=== PATIENT | female | born 1955 | race Caucasian/White ===

== ENCOUNTER → 2018-02-07 10:44 | Outpatient (CLI) | payer SELFPAY ==
[2018-02-07 12:05] LABS: Absolute Lymphocyte Count 1.71 X10^3/ul (0.83-4.51); Absolute Neutrophil Count 3.9 X10^3/uL (2.0-7.7); Basophil# 0.04 X10^3/uL; Basophil% 0.6 % (0-1); Eosinophil# 0.08 X10^3/uL; Eosinophils% 1.3 % (0-5); Hematocrit 42.2 % (37-47); Hemoglobin 13.8 g/dl (12.0-15.0); Lymphocyte # 1.71 X10^3/ul (4.0); Lymphocyte % 27.6 % (19-41); Mean Corp Hgb Conc 32.7 g/gl (32-36); Mean Corpuscular Hgb 32.2 pg (27.0-32.0); Mean Corpuscular Volume 98.4 fL (81-99); Mean Platelet Vol. 10.7 fl (6.2-12.0); Monocyte# 0.46 X10^3/uL; Monocyte% 7.4 % (0-10); Neutrophil % 62.9 % (47-70); Platelet Count 254 K/mm3 (150-450); RBC Distribution Width SD 49.3 fl (35.1-43.9); Red Blood Count 4.29 M/mm3 (4.2-5.4); White Blood Count 6.2 K/mm3 (4.4-11.0)
[2018-02-07 12:12] LABS: POSITIVE COUNT NO; POSITIVE DIFFERENTIAL NO; POSITIVE MORPHOLOGY NO
[2018-02-07 12:13] LABS: ALB/GLOB Ratio 1.1 RATIO (0.9-2.4); AST(SGOT) 18 U/L (15-37); Alanine Aminotransfer ALT/SGPT 26 U/L (13-56); Albumin, Serum 3.9 g/dL (3.2-5.0); Alkaline Phosphatase 73 U/L (45-117); Anion Gap 9 (5-15); BUN 18 mg/dL (7-18); BUN/Creat Ratio 24.8 RATIO (10-20); Chloride 106 mmol/L (98-107); Creatinine, Serum 0.72 mg/dL (0.55-1.02); EST Glomerular Filtration Rate 87 mL/min (>60); Est Glom Filt Rate - Afr Amer 105 mL/min (>60); Globulin 3.5 g/dL (2.2-4.2); Glucose 94 mg/dL (74-106); Potassium 3.6 mmol/L (3.5-5.1); Protein, Total 7.4 g/dL (6.4-8.2); Sodium Level 142 mmol/L (136-145)
== END ==
PROVIDERS: Family Provider Family Medicine; PCP Family Medicine; Visit Provider Internal Medicine Rheumatology
DX: M06.4 Inflammatory polyarthropathy (principal); M79.7 Fibromyalgia; M15.9 Polyosteoarthritis, unspecified; M47.897 Other spondylosis, lumbosacral region; Z85.038 Personal history of other malignant neoplasm of large intestine; Z79.899 Other long term (current) drug therapy
CPT/HCPCS: 36415; 80053; 85025

== ENCOUNTER → 2018-04-21 08:27 | Outpatient (CLI) | payer SELFPAY ==
[2018-04-21 10:18] LABS: Absolute Lymphocyte Count 1.34 X10^3/ul (0.83-4.51); Absolute Neutrophil Count 1.9 X10^3/uL (2.0-7.7); Basophil# 0.01 X10^3/uL; Basophil% 0.3 % (0-1); Eosinophil# 0.07 X10^3/uL; Hematocrit 37.9 % (37-47); Hemoglobin 12.1 g/dl (12.0-15.0); Lymphocyte # 1.34 X10^3/ul (4.0); Lymphocyte % 38.7 % (19-41); Mean Corp Hgb Conc 31.9 g/gl (32-36); Mean Corpuscular Hgb 31.6 pg (27.0-32.0); Monocyte# 0.19 X10^3/uL; Monocyte% 5.5 % (0-10); Neutrophil # 1.85 X10^3/uL (2.7-7.7); Neutrophil % 53.5 % (47-70); Platelet Count 265 K/mm3 (150-450); RBC Distribution Width CV 14.1 % (11.6-14.6); RBC Distribution Width SD 50.4 fl (35.1-43.9); Red Blood Count 3.83 M/mm3 (4.2-5.4); White Blood Count 3.5 K/mm3 (4.4-11.0)
[2018-04-21 10:19] LABS: POSITIVE COUNT NO; POSITIVE DIFFERENTIAL NO; POSITIVE MORPHOLOGY NO
[2018-04-21 10:43] LABS: ALB/GLOB Ratio 1.2 RATIO (0.9-2.4); AST(SGOT) 27 U/L (15-37); Alanine Aminotransfer ALT/SGPT 27 U/L (13-56); Albumin, Serum 3.7 g/dL (3.2-5.0); Alkaline Phosphatase 64 U/L (45-117); Anion Gap 7 (5-15); BUN 12 mg/dL (7-18); BUN/Creat Ratio 15.9 RATIO (10-20); Calcium,Total 8.7 mg/dL (8.5-10.1); Chloride 106 mmol/L (98-107); Creatinine, Serum 0.75 mg/dL (0.55-1.02); EST Glomerular Filtration Rate 83 mL/min (>60); Est Glom Filt Rate - Afr Amer 101 mL/min (>60); Glucose 100 mg/dL (74-106); Potassium 4.2 mmol/L (3.5-5.1); Protein, Total 6.7 g/dL (6.4-8.2); Sodium Level 141 mmol/L (136-145)
== END ==
PROVIDERS: Family Provider Family Medicine; PCP Family Medicine; Visit Provider Internal Medicine Rheumatology
DX: M06.4 Inflammatory polyarthropathy (principal); M79.7 Fibromyalgia; M15.9 Polyosteoarthritis, unspecified; M47.897 Other spondylosis, lumbosacral region; Z85.038 Personal history of other malignant neoplasm of large intestine; Z79.899 Other long term (current) drug therapy
CPT/HCPCS: 36415; 80053; 85025

== ENCOUNTER → 2018-07-13 14:34 | Outpatient (CLI) | payer SELFPAY ==
[2018-07-13 15:39] LABS: Absolute Lymphocyte Count 1.56 X10^3/ul (0.83-4.51); Absolute Neutrophil Count 3.2 X10^3/uL (2.0-7.7); Basophil# 0.02 X10^3/uL; Basophil% 0.4 % (0-1); Eosinophil# 0.09 X10^3/uL; Eosinophils% 1.7 % (0-5); Hematocrit 42.4 % (37-47); Hemoglobin 13.5 g/dl (12.0-15.0); Lymphocyte # 1.56 X10^3/ul (4.0); Lymphocyte % 29.8 % (19-41); Mean Corp Hgb Conc 31.8 g/gl (32-36); Mean Corpuscular Hgb 31.3 pg (27.0-32.0); Mean Corpuscular Volume 98.4 fL (81-99); Mean Platelet Vol. 10.2 fl (6.2-12.0); Monocyte# 0.38 X10^3/uL; Monocyte% 7.3 % (0-10); Neutrophil # 3.19 X10^3/uL (2.7-7.7); Neutrophil % 60.8 % (47-70); Platelet Count 318 K/mm3 (150-450); RBC Distribution Width CV 14.2 % (11.6-14.6); RBC Distribution Width SD 50.8 fl (35.1-43.9); Red Blood Count 4.31 M/mm3 (4.2-5.4); White Blood Count 5.2 K/mm3 (4.4-11.0)
[2018-07-13 15:47] LABS: POSITIVE COUNT NO; POSITIVE DIFFERENTIAL NO; POSITIVE MORPHOLOGY NO
[2018-07-13 15:51] LABS: ALB/GLOB Ratio 1.1 RATIO (0.9-2.4); AST(SGOT) 26 U/L (15-37); Alanine Aminotransfer ALT/SGPT 31 U/L (13-56); Albumin, Serum 3.9 g/dL (3.2-5.0); Alkaline Phosphatase 63 U/L (45-117); Anion Gap 8 (5-15); BUN 15 mg/dL (7-18); BUN/Creat Ratio 17.9 RATIO (10-20); Calcium,Total 9.1 mg/dL (8.5-10.1); Chloride 107 mmol/L (98-107); Creatinine, Serum 0.84 mg/dL (0.55-1.02); EST Glomerular Filtration Rate 73 mL/min (>60); Est Glom Filt Rate - Afr Amer 89 mL/min (>60); Globulin 3.4 g/dL (2.2-4.2); Glucose 101 mg/dL (74-106); Protein, Total 7.3 g/dL (6.4-8.2); Sodium Level 143 mmol/L (136-145)
== END ==
PROVIDERS: Family Provider Family Medicine; PCP Family Medicine; Visit Provider Internal Medicine Rheumatology
DX: M06.4 Inflammatory polyarthropathy (principal); Z79.899 Other long term (current) drug therapy; M79.7 Fibromyalgia; M15.9 Polyosteoarthritis, unspecified; M47.897 Other spondylosis, lumbosacral region; Z85.038 Personal history of other malignant neoplasm of large intestine
CPT/HCPCS: 36415; 80053; 85025

== ENCOUNTER → 2018-10-13 14:33 | Outpatient (CLI) | payer SELFPAY ==
[2018-10-13 16:08] LABS: Absolute Lymphocyte Count 1.68 X10^3/ul (0.83-4.51); Basophil# 0.01 X10^3/uL; Basophil% 0.2 % (0-1); Eosinophil# 0.07 X10^3/uL; Eosinophils% 1.4 % (0-5); Hematocrit 40.4 % (37-47); Hemoglobin 13.1 g/dl (12.0-15.0); Lymphocyte # 1.68 X10^3/ul (4.0); Lymphocyte % 33.8 % (19-41); Mean Corp Hgb Conc 32.4 g/gl (32-36); Mean Corpuscular Hgb 32.2 pg (27.0-32.0); Mean Corpuscular Volume 99.3 fL (81-99); Mean Platelet Vol. 10.2 fl (6.2-12.0); Monocyte# 0.24 X10^3/uL; Monocyte% 4.8 % (0-10); Neutrophil # 2.96 X10^3/uL (2.7-7.7); Neutrophil % 59.6 % (47-70); Platelet Count 277 K/mm3 (150-450); RBC Distribution Width CV 13.7 % (11.6-14.6); RBC Distribution Width SD 49.1 fl (35.1-43.9); Red Blood Count 4.07 M/mm3 (4.2-5.4)
[2018-10-13 16:21] LABS: ALB/GLOB Ratio 1.3 RATIO (0.9-2.4); AST(SGOT) 24 U/L (15-37); Alanine Aminotransfer ALT/SGPT 35 U/L (13-56); Albumin, Serum 3.8 g/dL (3.2-5.0); Alkaline Phosphatase 60 U/L (45-117); Anion Gap 8 (5-15); BUN 12 mg/dL (7-18); Calcium,Total 8.8 mg/dL (8.5-10.1); Chloride 106 mmol/L (98-107); Creatinine, Serum 0.86 mg/dL (0.55-1.02); EST Glomerular Filtration Rate 72 mL/min (>60); Est Glom Filt Rate - Afr Amer 87 mL/min (>60); Glucose 101 mg/dL (74-106); Potassium 3.4 mmol/L (3.5-5.1); Protein, Total 6.8 g/dL (6.4-8.2); Sodium Level 143 mmol/L (136-145)
[2018-10-13 16:40] LABS: POSITIVE COUNT NO; POSITIVE DIFFERENTIAL NO; POSITIVE MORPHOLOGY NO
== END ==
PROVIDERS: Family Provider Family Medicine; PCP Family Medicine; Referring Provider Internal Medicine Rheumatology; Visit Provider Internal Medicine Rheumatology
DX: M06.4 Inflammatory polyarthropathy (principal); M79.7 Fibromyalgia; M15.9 Polyosteoarthritis, unspecified; M47.897 Other spondylosis, lumbosacral region; Z79.899 Other long term (current) drug therapy; Z85.038 Personal history of other malignant neoplasm of large intestine
CPT/HCPCS: 36415; 80053; 85025

== ENCOUNTER → 2019-01-11 11:51 | Outpatient (CLI) | payer SELFPAY ==
[2019-01-11 14:20] LABS: Absolute Lymphocyte Count 1.94 X10^3/ul (0.83-4.51); Basophil# 0.03 X10^3/uL; Basophil% 0.6 % (0-1); Eosinophil# 0.09 X10^3/uL; Eosinophils% 1.7 % (0-5); Hematocrit 40.4 % (37-47); Lymphocyte # 1.94 X10^3/ul (4.0); Lymphocyte % 36.1 % (19-41); Mean Corp Hgb Conc 32.2 g/gl (32-36); Mean Corpuscular Hgb 32.4 pg (27.0-32.0); Mean Corpuscular Volume 100.7 fL (81-99); Mean Platelet Vol. 10.5 fl (6.2-12.0); Monocyte# 0.35 X10^3/uL; Monocyte% 6.5 % (0-10); Neutrophil # 2.95 X10^3/uL (2.7-7.7); Neutrophil % 54.9 % (47-70); Platelet Count 276 K/mm3 (150-450); RBC Distribution Width CV 13.8 % (11.6-14.6); RBC Distribution Width SD 49.3 fl (35.1-43.9); Red Blood Count 4.01 M/mm3 (4.2-5.4); White Blood Count 5.4 K/mm3 (4.4-11.0)
[2019-01-11 14:26] LABS: POSITIVE COUNT NO; POSITIVE DIFFERENTIAL NO; POSITIVE MORPHOLOGY NO
[2019-01-11 14:43] LABS: ALB/GLOB Ratio 1.1 RATIO (0.9-2.4); AST(SGOT) 20 U/L (15-37); Alanine Aminotransfer ALT/SGPT 28 U/L (13-56); Albumin, Serum 3.8 g/dL (3.2-5.0); Alkaline Phosphatase 58 U/L (45-117); Anion Gap 7 (5-15); BUN 12 mg/dL (7-18); BUN/Creat Ratio 17.2 RATIO (10-20); Chloride 109 mmol/L (98-107); EST Glomerular Filtration Rate 91 mL/min (>60); Est Glom Filt Rate - Afr Amer 110 mL/min (>60); Globulin 3.5 g/dL (2.2-4.2); Glucose 105 mg/dL (74-106); Potassium 3.7 mmol/L (3.5-5.1); Protein, Total 7.3 g/dL (6.4-8.2); Sodium Level 144 mmol/L (136-145)
== END ==
PROVIDERS: Family Provider Family Medicine; PCP Family Medicine; Referring Provider Internal Medicine Rheumatology; Visit Provider Internal Medicine Rheumatology
DX: M06.4 Inflammatory polyarthropathy (principal); M79.7 Fibromyalgia; M15.9 Polyosteoarthritis, unspecified; M47.897 Other spondylosis, lumbosacral region; Z85.038 Personal history of other malignant neoplasm of large intestine; Z79.899 Other long term (current) drug therapy
CPT/HCPCS: 36415; 80053; 85025

== ENCOUNTER → 2019-04-05 13:40 | Outpatient (CLI) | payer SELFPAY ==
[2019-04-05 15:38] LABS: Absolute Lymphocyte Count 1.66 X10^3/ul (0.83-4.51); Absolute Neutrophil Count 3.4 X10^3/uL (2.0-7.7); Basophil# 0.02 X10^3/uL; Basophil% 0.4 % (0-1); Eosinophil# 0.06 X10^3/uL; Eosinophils% 1.1 % (0-5); Hematocrit 41.8 % (37-47); Hemoglobin 13.7 g/dl (12.0-15.0); Lymphocyte # 1.66 X10^3/ul (4.0); Lymphocyte % 30.7 % (19-41); Mean Corp Hgb Conc 32.8 g/gl (32-36); Mean Corpuscular Hgb 32.3 pg (27.0-32.0); Mean Corpuscular Volume 98.6 fL (81-99); Mean Platelet Vol. 10.3 fl (6.2-12.0); Monocyte# 0.29 X10^3/uL; Monocyte% 5.4 % (0-10); Neutrophil # 3.37 X10^3/uL (2.7-7.7); Neutrophil % 62.2 % (47-70); Platelet Count 286 K/mm3 (150-450); RBC Distribution Width CV 14.5 % (11.6-14.6); Red Blood Count 4.24 M/mm3 (4.2-5.4); White Blood Count 5.4 K/mm3 (4.4-11.0)
[2019-04-05 15:48] LABS: POSITIVE COUNT NO; POSITIVE DIFFERENTIAL NO; POSITIVE MORPHOLOGY NO
[2019-04-05 16:23] LABS: ALB/GLOB Ratio 1.5 RATIO (0.9-2.4); AST(SGOT) 29 U/L (15-37); Alanine Aminotransfer ALT/SGPT 40 U/L (13-56); Albumin, Serum 4.3 g/dL (3.2-5.0); Alkaline Phosphatase 59 U/L (45-117); Anion Gap 9 (5-15); BUN 16 mg/dL (7-18); BUN/Creat Ratio 19.7 RATIO (10-20); Calcium,Total 9.3 mg/dL (8.5-10.1); Chloride 105 mmol/L (98-107); Creatinine, Serum 0.81 mg/dL (0.55-1.02); EST Glomerular Filtration Rate 76 mL/min (>60); Est Glom Filt Rate - Afr Amer 92 mL/min (>60); Globulin 2.9 g/dL (2.2-4.2); Glucose 111 mg/dL (74-106); Potassium 3.3 mmol/L (3.5-5.1); Protein, Total 7.2 g/dL (6.4-8.2); Sodium Level 142 mmol/L (136-145)
== END ==
PROVIDERS: Family Provider Family Medicine; PCP Family Medicine; Referring Provider Internal Medicine Rheumatology; Visit Provider Internal Medicine Rheumatology
DX: M06.4 Inflammatory polyarthropathy (principal); M79.7 Fibromyalgia; M15.9 Polyosteoarthritis, unspecified; M47.897 Other spondylosis, lumbosacral region; Z85.038 Personal history of other malignant neoplasm of large intestine; Z79.899 Other long term (current) drug therapy
CPT/HCPCS: 36415; 80053; 85025

== ENCOUNTER → 2019-07-09 13:16 | Outpatient (CLI) | payer SELFPAY ==
[2019-07-09 13:57] LABS: Absolute Neutrophil Count 2.7 X10^3/uL (2.0-7.7); Basophil# 0.03 X10^3/uL; Basophil% 0.6 % (0-1); Eosinophil# 0.08 X10^3/uL; Eosinophils% 1.6 % (0-5); Hematocrit 39.3 % (37-47); Hemoglobin 12.7 g/dL (12.0-15.0); Lymphocyte % 35.6 % (19-41); Mean Corp Hgb Conc 32.3 g/dL (32-36); Mean Corpuscular Hgb 31.6 pg (27.0-32.0); Mean Corpuscular Volume 97.8 fL (81-99); Mean Platelet Vol. 9.7 fl (6.2-12.0); Monocyte# 0.48 X10^3/uL; Monocyte% 9.5 % (0-10); NRBC Flagged by Analyzer 0 % (0-5); Neutrophil # 2.66 X10^3/uL (2.7-7.7); Neutrophil % 52.5 % (47-70); Platelet Count 267 K/mm3 (150-450); RBC Distribution Width CV 13.6 % (11.6-14.6); RBC Distribution Width SD 48.6 fl (35.1-43.9); Red Blood Count 4.02 M/mm3 (4.2-5.4); White Blood Count 5.1 K/mm3 (4.4-11.0)
[2019-07-09 14:24] LABS: ALB/GLOB Ratio 1.2 RATIO (0.9-2.4); AST(SGOT) 17 U/L (15-37); Alanine Aminotransfer ALT/SGPT 17 U/L (13-56); Albumin, Serum 3.8 g/dL (3.2-5.0); Alkaline Phosphatase 72 U/L (45-117); Anion Gap 4 (5-15); BUN 12 mg/dL (7-18); BUN/Creat Ratio 18.1 RATIO (10-20); Calcium,Total 9.1 mg/dL (8.5-10.1); Chloride 108 mmol/L (98-107); Creatinine, Serum 0.66 mg/dL (0.55-1.02); EST Glomerular Filtration Rate 96 mL/min (>60); Est Glom Filt Rate - Afr Amer 116 mL/min (>60); Globulin 3.1 g/dL (2.2-4.2); Glucose 85 mg/dL (74-106); Potassium 3.9 mmol/L (3.5-5.1); Protein, Total 6.9 g/dL (6.4-8.2); Sodium Level 141 mmol/L (136-145)
== END ==
PROVIDERS: Family Provider Family Medicine; PCP Family Medicine; Referring Provider Internal Medicine Rheumatology; Visit Provider Internal Medicine Rheumatology
DX: M06.4 Inflammatory polyarthropathy (principal); M79.7 Fibromyalgia; M15.9 Polyosteoarthritis, unspecified; M47.897 Other spondylosis, lumbosacral region; Z85.038 Personal history of other malignant neoplasm of large intestine; Z79.899 Other long term (current) drug therapy
CPT/HCPCS: 36415; 80053; 85025

== ENCOUNTER → 2019-08-30 10:45 | Outpatient (CLI) | payer MEDICARE, SELFPAY ==
--- NOTE | 2019-08-30 10:52 | RAD_ITS ---
STUDY: X-RAY - LUMBAR SPINE REASON FOR EXAM: Female, 63 years old. Left hip pain. TECHNIQUE: 5 view(s) of the lumbar spine were obtained. COMPARISON: October 13, 2016 FINDINGS: Normal lumbar lordosis. There is no substantial scoliosis. There is a normal alignment of the vertebrae. There is multilevel endplate spondylosis of the lumbar vertebrae. There is multi-level degenerative disc disease with multi-level disc space narrowing. There is atherosclerotic calcification of the abdominal aorta without a demonstrated aneurysm. RAD/L/S Spine Min 4 Views IMPRESSION: Degenerative changes of the spine, as detailed above. Atherosclerosis. Electronically Signed: Velma Mcleod MD at 17:59 EDT Tel , Service support ,
== END ==
PROVIDERS: Family Provider Family Medicine; PCP Family Medicine; Referring Provider Nurse Practitioner Family; Visit Provider Nurse Practitioner Family
DX: M46.96 Unspecified inflammatory spondylopathy, lumbar region (principal); M51.37 Other intervertebral disc degeneration, lumbosacral region; M47.816 Spondylosis without myelopathy or radiculopathy, lumbar region
CPT/HCPCS: 72110

== ENCOUNTER → 2019-09-28 15:29 | Outpatient (CLI) | payer MEDICARE, SELFPAY ==
[2019-09-28 17:49] LABS: Absolute Lymphocyte Count 2.35 X10^3/uL (0.83-4.51); Absolute Neutrophil Count 2.8 X10^3/uL (2.0-7.7); Basophil# 0.04 X10^3/uL; Basophil% 0.7 % (0-1); Eosinophils% 1.7 % (0-5); Hematocrit 40.9 % (37-47); Hemoglobin 13.1 g/dL (12.0-15.0); Lymphocyte # 2.35 X10^3/ul (4.0); Lymphocyte % 40.9 % (19-41); Mean Corpuscular Hgb 31.9 pg (27.0-32.0); Mean Corpuscular Volume 99.5 fL (81-99); Mean Platelet Vol. 10.1 fl (6.2-12.0); Monocyte# 0.44 X10^3/uL; Monocyte% 7.7 % (0-10); NRBC Flagged by Analyzer 0 % (0-5); Neutrophil % 48.8 % (47-70); Platelet Count 308 K/mm3 (150-450); RBC Distribution Width CV 13.9 % (11.6-14.6); RBC Distribution Width SD 50.4 fl (35.1-43.9); Red Blood Count 4.11 M/mm3 (4.2-5.4); White Blood Count 5.7 K/mm3 (4.4-11.0)
[2019-09-28 18:16] LABS: ALB/GLOB Ratio 1.2 RATIO (0.9-2.4); AST(SGOT) 17 U/L (15-37); Alanine Aminotransfer ALT/SGPT 27 U/L (13-56); Albumin, Serum 3.8 g/dL (3.2-5.0); Alkaline Phosphatase 63 U/L (45-117); Anion Gap 8 (5-15); BUN 13 mg/dL (7-18); BUN/Creat Ratio 18.7 RATIO (10-20); Calcium,Total 8.9 mg/dL (8.5-10.1); Chloride 104 mmol/L (98-107); EST Glomerular Filtration Rate 91 mL/min (>60); Est Glom Filt Rate - Afr Amer 110 mL/min (>60); Globulin 3.1 g/dL (2.2-4.2); Glucose 84 mg/dL (74-106); Potassium 3.7 mmol/L (3.5-5.1); Protein, Total 6.9 g/dL (6.4-8.2); Sodium Level 141 mmol/L (136-145)
== END ==
PROVIDERS: Family Provider Family Medicine; PCP Family Medicine; Referring Provider Internal Medicine Rheumatology; Visit Provider Internal Medicine Rheumatology
DX: M06.4 Inflammatory polyarthropathy (principal); M79.7 Fibromyalgia; M15.9 Polyosteoarthritis, unspecified; M47.897 Other spondylosis, lumbosacral region; Z85.038 Personal history of other malignant neoplasm of large intestine; Z79.899 Other long term (current) drug therapy
CPT/HCPCS: 36415; 80053; 85025

== ENCOUNTER 2019-10-24 13:00 | Outpatient (RCR) | payer MEDICARE, SELFPAY ==
--- NOTE | 2019-09-27 16:37 | HP.PTEVAL_ITS ---
Patient's Visit Information AUGUSTUS TARIQ is a 64 year old F referred to Physical Therapy by MAURO Joyner with a diagnosis of L Lumbar Stenosis, Spondylosis. Date of Evaluation: 09/27/19 Physical Therapist: Margot Peguero DPT - Visit Plan Frequency: 2x /Week Duration: 4 Weeks Plan: Focus on improving lumbar/Hip ROM, improving core/LE strength/stabilization, improving posture/body mechanics/pelvic shift when amb., and decreasing pain. 09/27/19 HEP Prescribed: Supine Bridges, Isometric Abdominals, Hip Add/Abd. - Subjective Findings: Chronic LBP, no AVTAR. X-ray for lower back 3 weeks ago, showed herniation, degeneration of L4/L5. Epidural scheduled for 10/03 Dr Clark. Hip & knee pain has started within last year, no AVTAR. Lives with in one story home, 3 steps into house. Aquatic therapy at a couple years ago with little help for pain. Describes pain, as throbbing and burning. Some at the lower back, but mostly down the outside of the L leg (can go all the way down to foot). When back does hurt it can radiate over to R hip, pain is usually just on L side. Pain can rdadiate up the back at times (epidurals in thoracic region). Worst: 5- 6/10 Agg: being on it, ADL's, standing after prolonged sitting, stairs, putting socks on. Best: 5/10 Eases: nothing seems to help pain, tries to sit & rest it. Pain doesn't really seem to subside at all. N/T all the way down the L leg at times. Sleeping on L side disrupts sleep, sleeps on side with pillow between legs. Occupation: Retired Typical Activities: Gardening, 3 grandkids (4,6,7) 1- 2x a week. Exercise Program: not currently. PMH/Meds: Scoliosis. Chemotherapy 2013, Sees Dr. santiago for RA. Had x-rays taken at [place] for for L hip - still waiting for results. Has been walking with cane for the last 6 months, even inside the house. - Objective Posture: FH, RS - corrected w/ v/c, but not maintained. Excessive pelvic shift to the R. Gait: Amb. w/ cane, excessive lateral pelvic shift to R, decreased sierra, lacks TKE B, weight shift to R LE. Wihout cane: gait pattern remains the same, slower sierra, weight shift to R Le, reachs out for support. ROM: Lumbar: Flex: fingers to ankles, Ext: 0%, SB L: 50% diminshed, R 50% diminished. L Rot: 50% diminished, R Rot. 75% diminshed. Painful in all planes. Ankle/Knee WFL, Hip Flex: 110 degrees, IR/ER - diominshed (difficulty maintaining position w/out pain). Strength: Ankle 5/5, Knee 4/5, Hip: Flex 4-/5, Ext: 3+/5, Abd: 3+/5, IR/ER: 3/5. Core: Poor. Painful w/ all testing (pain w/ all strength testing). Palpation: TTP to gentle PA glides at L2-L5, L iliac crest, sacral base, L ASIS, t/o hip joint & down outside of L leg to knee. Sensation: WNL to gross B touch. LLD: L malleoli higher than R - not attempted to correct w/ MET d/t pain. Pelvic Allignment: WNL. Special Tests: Slump L (+), Long [place] Distraction (+), Squish Test (+) - Goals Goal 1:: Pt. will be I w/ HEP & progression Goal Time Frame: 4-6 Weeks Goal 2:: Pt. will amb. >300 ft w/ normalized gait pattern Goal Time Frame: 4-6 Weeks Goal 3:: Pt. will demo 4+/5 strength in R LE Goal Time Frame: 4-6 Weeks Goal 4:: Pt. will maintain proper posture t/o tx session & when amb. to demo improved core strength Goal Time Frame: 4-6 Weeks - Rehabilitation Potential Physical Therapy Diagnosis: Presents w/ hypomobility, impaired core/hip strength, antalgic gait, impaired lumbar ROM, and pain which leads to impaired tolerance of ADL's. Rehabilitation Potential: Good - Anticipated Interventions Patient/Client Instruction: Educate patient on: Condition For the Purpose of:: To decrease pain Therapeutic Exercise to Include: Strength training, Endurance training, Balance training, Body mechanics, Postural training, Flexibilty training, Gait and locomotor training, Active ROM, Dynamic Lumbar Stabilization, Farzaneh Exercises For the Purpose of:: To improve muscle performance and motor function Functional Training to Include: Gait training For the Purpose of:: To improve muscle performance and motor function Cryotherapy (ice pack, ice massage): Yes Thermo therapy (hot pack): Yes Ultrasound (thermal/non thermal): Yes For the Purpose of:: To decrease pain Thank you for the opportunity to evaluate your patient. For Medicare and Medicare HMO plans, please review the plan of care and approve it. It will need to be FAXED BACK to us at [phone] for Medicare purposes. For Medicare only, by signing this I certify the plan of care. Please let me know if there are questions or concerns regarding this plan of care. Physician Signature: Da te:
--- NOTE | 2019-10-24 13:24 | HP.PTDCSUM ---
HP - PT D/C Summary It has been my pleasure to treat AUGUSTUS TARIQ under orders from Suri Potter, MICHELLC, for the diagnosis of L Lumbar Stenosis, Spondylosis for a total of 6 visit(s). Discharge Date: Please see the following information for a summary of their discharge status. - Subjective Subjective: Patient reports that she had an epideral so her back is great but her hip is a problem- they think 95% of the pain is coming from her hip- severe OA- plans to have another injection in the hip then possibly total hip replacement. - Pain LB Pain Intensity (Out of 10): Unrated hips Pain Intensity (Out of 10): Unrated L LE Pain Intensity (Out of 10): Unrated R heel Pain Intensity (Out of 10): Unrated - Overall Improvement % Improvement: 80 - Objective Objective/Function: Posture: FH, RS - corrected w/ v/c, but not maintained. Excessive pelvic shift to the R. Gait: Amb. w/ cane, excessive lateral pelvic shift to R, decreased sierra, lacks TKE B, weight shift to R LE. Wihout cane: gait pattern remains the same, slower sierra, weight shift to R Le, reachs out for support. ROM: Lumbar: Flex: fingers to ankles, Ext: 0%, SB L: 50% diminshed, R 50% diminished. L Rot: 50% diminished, R Rot. 75% diminshed. Painful in all planes. Ankle/Knee WFL, Hip Flex: 110 degrees, IR/ER - diominshed (difficulty maintaining position w/out pain). Strength: Ankle 5/5, Knee 4/5, Hip: Flex 4-/5, Ext: 3+/5, Abd: 3+/5, IR/ER: 3/5. Core: Poor. Painful w/ all testing (pain w/ all strength testing). Palpation: TTP to gentle PA glides at L2-L5, L iliac crest, sacral base, L ASIS, t/o hip joint & down outside of L leg to knee. Sensation: WNL to gross B touch. LLD: L malleoli higher than R - not attempted to correct w/ MET d/t pain. Pelvic Allignment: WNL. Special Tests: Slump L (+), Long [place] Distraction (+), Squish Test (+). No significant changes in objective measures. - Goals Goal 1:: Pt. will be I w/ HEP & progression Goal Progress: Goal Met Goal 2:: Pt. will amb. >300 ft w/ normalized gait pattern Goal Progress: Not Progressing Goal 3:: Pt. will demo 4+/5 strength in R LE Goal Progress: Not Progressing Goal 4:: Pt. will maintain proper posture t/o tx session & when amb. to demo improved core strength Goal Progress: Not Progressing - Plan Plan: Discharge- return to MD for further evaluation - D/C Information If there are questions or concerns regarding this patient's physical therapy, please feel free to call me at [phone]. Thank you for the referral of this patient. Sincerely, MARITZA RuanoT
== END 2019-10-24 19:00 | disposition home or self-care (01) ==
LOC: PT 13:00
PROVIDERS: Family Provider Family Medicine; PCP Family Medicine; Referring Provider Nurse Practitioner Family; Visit Provider Nurse Practitioner Family
DX: M51.36 Other intervertebral disc degeneration, lumbar region (principal); M47.816 Spondylosis without myelopathy or radiculopathy, lumbar region; M48.061 Spinal stenosis, lumbar region without neurogenic claudication; M46.96 Unspecified inflammatory spondylopathy, lumbar region; M54.9 Dorsalgia, unspecified
CPT/HCPCS: 97035; 97110; 97162; 97530

== ENCOUNTER → 2019-12-10 10:38 | Outpatient (CLI) | payer MEDICARE, SELFPAY ==
--- NOTE | 2019-12-10 10:51 | EKG12_ITS ---
Test Reason : PREOP Blood Pressure : / mmHG Vent. Rate : 079 BPM Atrial Rate : 079 BPM P-R Int : 158 ms QRS Dur : 078 ms QT Int : 366 ms P-R-T Axes : 041 039 077 degrees QTc Int : 419 ms Normal sinus rhythm Normal ECG Confirmed by MARI WEST, ELVI ([id number]), editor map PATRICIO ORDAZ ([id number]) on 12/11/2019 10:17:08 AM Referred By: Varun Lott Confirmed By:ELVI GUERRA MD
[2019-12-10 11:15] LABS: Absolute Lymphocyte Count 1.84 X10^3/uL (0.83-4.51); Absolute Neutrophil Count 4.2 X10^3/uL (2.0-7.7); Basophil# 0.04 X10^3/uL; Basophil% 0.6 % (0-1); Eosinophil# 0.07 X10^3/uL; Hemoglobin 13.6 g/dL (12.0-15.0); Lymphocyte # 1.84 X10^3/ul (4.0); Lymphocyte % 27.3 % (19-41); Mean Corp Hgb Conc 31.6 g/dL (32-36); Mean Corpuscular Hgb 31.9 pg (27.0-32.0); Mean Corpuscular Volume 100.7 fL (81-99); Mean Platelet Vol. 9.8 fl (6.2-12.0); Monocyte# 0.57 X10^3/uL; Monocyte% 8.5 % (0-10); NRBC Flagged by Analyzer 0 % (0-5); Neutrophil # 4.19 X10^3/uL (2.7-7.7); Neutrophil % 62.3 % (47-70); Platelet Count 328 K/mm3 (150-450); RBC Distribution Width CV 14.7 % (11.6-14.6); RBC Distribution Width SD 54.9 fl (35.1-43.9); Red Blood Count 4.27 M/mm3 (4.2-5.4); White Blood Count 6.7 K/mm3 (4.4-11.0)
[2019-12-10 11:54] LABS: Anion Gap 3 (5-15); BUN 13 mg/dL (7-18); BUN/Creat Ratio 18.1 RATIO (10-20); Calcium,Total 9.7 mg/dL (8.5-10.1); Chloride 111 mmol/L (98-107); Creatinine, Serum 0.72 mg/dL (0.55-1.02); EST Glomerular Filtration Rate 88 mL/min (>60); Est Glom Filt Rate - Afr Amer 106 mL/min (>60); Glucose 87 mg/dL (74-106); Potassium 3.9 mmol/L (3.5-5.1); Sodium Level 142 mmol/L (136-145)
== END ==
PROVIDERS: Family Provider Family Medicine; PCP Family Medicine; Referring Provider Physician Assistant Surgical; Visit Provider Physician Assistant Surgical
DX: Z01.810 Encounter for preprocedural cardiovascular examination (principal); Z01.818 Encounter for other preprocedural examination
CPT/HCPCS: 36415; 80048; 85025; 93005

== ENCOUNTER → 2020-02-28 10:07 | Outpatient (CLI) | payer MEDICARE, SELFPAY ==
[2020-02-28 12:14] LABS: Absolute Neutrophil Count 1.7 X10^3/uL (2.0-7.7); Basophil# 0.03 X10^3/uL; Basophil% 0.8 % (0-1); Eosinophil# 0.06 X10^3/uL; Eosinophils% 1.5 % (0-5); Hematocrit 45.5 % (37-47); Hemoglobin 14.3 g/dL (12.0-15.0); Lymphocyte % 46.4 % (19-41); Mean Corp Hgb Conc 31.4 g/dL (32-36); Mean Corpuscular Hgb 31.4 pg (27.0-32.0); Mean Corpuscular Volume 99.8 fL (81-99); Mean Platelet Vol. 10.2 fl (6.2-12.0); Monocyte# 0.31 X10^3/uL; NRBC Flagged by Analyzer 0 % (0-5); Neutrophil # 1.67 X10^3/uL (2.7-7.7); Platelet Count 297 K/mm3 (150-450); RBC Distribution Width CV 12.5 % (11.6-14.6); RBC Distribution Width SD 46.5 fl (35.1-43.9); Red Blood Count 4.56 M/mm3 (4.2-5.4); White Blood Count 3.9 K/mm3 (4.4-11.0)
[2020-02-28 12:31] LABS: ALB/GLOB Ratio 1.2 RATIO (0.9-2.4); AST(SGOT) 20 U/L (15-37); Alanine Aminotransfer ALT/SGPT 22 U/L (13-56); Alkaline Phosphatase 87 U/L (45-117); Anion Gap 6 (5-15); BUN 7 mg/dL (7-18); BUN/Creat Ratio 8.9 RATIO (10-20); Calcium,Total 9.3 mg/dL (8.5-10.1); Chloride 107 mmol/L (98-107); Creatinine, Serum 0.78 mg/dL (0.55-1.02); EST Glomerular Filtration Rate 79 mL/min (>60); Est Glom Filt Rate - Afr Amer 96 mL/min (>60); Globulin 3.3 g/dL (2.2-4.2); Glucose 92 mg/dL (74-106); Potassium 3.8 mmol/L (3.5-5.1); Protein, Total 7.3 g/dL (6.4-8.2); Sodium Level 140 mmol/L (136-145)
== END ==
PROVIDERS: PCP Family Medicine; Referring Provider Internal Medicine Rheumatology; Visit Provider Internal Medicine Rheumatology
DX: M06.4 Inflammatory polyarthropathy (principal); M79.7 Fibromyalgia; M15.9 Polyosteoarthritis, unspecified; M47.897 Other spondylosis, lumbosacral region; Z79.899 Other long term (current) drug therapy; Z85.038 Personal history of other malignant neoplasm of large intestine
CPT/HCPCS: 36415; 80053; 85025

== ENCOUNTER → 2020-06-02 14:21 | Outpatient (CLI) | payer MEDICARE, SELFPAY ==
[2020-06-02 18:07] LABS: Absolute Lymphocyte Count 1.68 X10^3/uL (0.83-4.51); Absolute Neutrophil Count 1.7 X10^3/uL (2.0-7.7); Basophil# 0.03 X10^3/uL; Basophil% 0.8 % (0-1); Eosinophil# 0.05 X10^3/uL; Eosinophils% 1.3 % (0-5); Hematocrit 39.6 % (37-47); Hemoglobin 12.6 g/dL (12.0-15.0); Lymphocyte # 1.68 X10^3/ul (4.0); Lymphocyte % 44.6 % (19-41); Mean Corp Hgb Conc 31.8 g/dL (32-36); Mean Corpuscular Hgb 31.2 pg (27.0-32.0); Mean Platelet Vol. 10.8 fl (6.2-12.0); Monocyte# 0.33 X10^3/uL; Monocyte% 8.8 % (0-10); NRBC Flagged by Analyzer 0 % (0-5); Neutrophil # 1.68 X10^3/uL (2.7-7.7); Neutrophil % 44.5 % (47-70); Platelet Count 260 K/mm3 (150-450); RBC Distribution Width SD 50.5 fl (35.1-43.9); Red Blood Count 4.04 M/mm3 (4.2-5.4); White Blood Count 3.8 K/mm3 (4.4-11.0)
[2020-06-02 18:15] LABS: ALB/GLOB Ratio 1.3 RATIO (0.9-2.4); AST(SGOT) 16 U/L (15-37); Alanine Aminotransfer ALT/SGPT 21 U/L (13-56); Albumin, Serum 3.9 g/dL (3.2-5.0); Alkaline Phosphatase 66 U/L (45-117); Anion Gap 7 (5-15); BUN 13 mg/dL (7-18); BUN/Creat Ratio 20.2 RATIO (10-20); Calcium,Total 8.9 mg/dL (8.5-10.1); Chloride 107 mmol/L (98-107); Creatinine, Serum 0.64 mg/dL (0.55-1.02); EST Glomerular Filtration Rate 99 mL/min (>60); Est Glom Filt Rate - Afr Amer 120 mL/min (>60); Globulin 3.1 g/dL (2.2-4.2); Glucose 85 mg/dL (74-106); Potassium 3.6 mmol/L (3.5-5.1); Sodium Level 143 mmol/L (136-145)
== END ==
PROVIDERS: PCP Family Medicine; Referring Provider Internal Medicine Rheumatology; Visit Provider Internal Medicine Rheumatology
DX: M06.4 Inflammatory polyarthropathy (principal); M79.7 Fibromyalgia; M15.9 Polyosteoarthritis, unspecified; M47.897 Other spondylosis, lumbosacral region; Z79.899 Other long term (current) drug therapy; Z85.038 Personal history of other malignant neoplasm of large intestine
CPT/HCPCS: 36415; 80053; 85025

== ENCOUNTER → 2020-06-05 14:41 | Outpatient (CLI) | payer MEDICARE, SELFPAY ==
--- NOTE | 2020-06-05 14:43 | RAD_ITS ---
STUDY: X-RAY - RIGHT SHOULDER REASON FOR EXAM: Female, 64 years old. Pain TECHNIQUE: 4 view(s) of the shoulder. COMPARISON: None. FINDINGS: There is no evidence of fracture or dislocation. There are mild degenerative changes. There are no radiodense foreign bodies. RAD/Shoulder min 2 Views IMPRESSION: No fracture or dislocation in the right shoulder. Mild degenerative change. Electronically Signed: Gopi Hameed, at 15:00 EDT Tel , Service support ,
== END ==
PROVIDERS: PCP Family Medicine; Referring Provider Internal Medicine Rheumatology; Visit Provider Internal Medicine Rheumatology
DX: M06.4 Inflammatory polyarthropathy (principal); M79.7 Fibromyalgia; M25.511 Pain in right shoulder; M15.9 Polyosteoarthritis, unspecified; M47.897 Other spondylosis, lumbosacral region; Z79.899 Other long term (current) drug therapy; Z85.038 Personal history of other malignant neoplasm of large intestine
CPT/HCPCS: 73030

== ENCOUNTER → 2020-07-28 09:51 | Outpatient (CLI) | payer MEDICARE, SELFPAY ==
[2020-07-28 12:02] LABS: Absolute Lymphocyte Count 1.61 X10^3/uL (0.83-4.51); Absolute Neutrophil Count 2.2 X10^3/uL (2.0-7.7); Basophil# 0.03 X10^3/uL; Basophil% 0.7 % (0-1); Eosinophil# 0.06 X10^3/uL; Eosinophils% 1.4 % (0-5); Hematocrit 44.2 % (37-47); Hemoglobin 14.1 g/dL (12.0-15.0); Lymphocyte # 1.61 X10^3/ul (4.0); Lymphocyte % 36.9 % (19-41); Mean Corp Hgb Conc 31.9 g/dL (32-36); Mean Corpuscular Hgb 31.5 pg (27.0-32.0); Mean Corpuscular Volume 98.7 fL (81-99); Monocyte# 0.42 X10^3/uL; Monocyte% 9.6 % (0-10); NRBC Flagged by Analyzer 0 % (0-5); Neutrophil # 2.23 X10^3/uL (2.7-7.7); Neutrophil % 51.2 % (47-70); Platelet Count 306 K/mm3 (150-450); RBC Distribution Width CV 13.9 % (11.6-14.6); RBC Distribution Width SD 50.9 fl (35.1-43.9); Red Blood Count 4.48 M/mm3 (4.2-5.4); White Blood Count 4.4 K/mm3 (4.4-11.0)
[2020-07-28 12:24] LABS: ALB/GLOB Ratio 1.3 RATIO (0.9-2.4); AST(SGOT) 20 U/L (15-37); Alanine Aminotransfer ALT/SGPT 24 U/L (13-56); Albumin, Serum 4.1 g/dL (3.2-5.0); Alkaline Phosphatase 61 U/L (45-117); Anion Gap 5 (5-15); BUN 9 mg/dL (7-18); BUN/Creat Ratio 11.5 RATIO (10-20); Calcium,Total 9.3 mg/dL (8.5-10.1); Chloride 106 mmol/L (98-107); Creatinine, Serum 0.78 mg/dL (0.55-1.02); EST Glomerular Filtration Rate 79 mL/min (>60); Est Glom Filt Rate - Afr Amer 95 mL/min (>60); Globulin 3.2 g/dL (2.2-4.2); Glucose 79 mg/dL (74-106); Protein, Total 7.3 g/dL (6.4-8.2); Sodium Level 140 mmol/L (136-145)
== END ==
PROVIDERS: PCP Family Medicine; Referring Provider Internal Medicine Rheumatology; Visit Provider Internal Medicine Rheumatology
DX: M06.4 Inflammatory polyarthropathy (principal); M79.7 Fibromyalgia; M25.511 Pain in right shoulder; M15.9 Polyosteoarthritis, unspecified; M47.897 Other spondylosis, lumbosacral region; Z79.899 Other long term (current) drug therapy; Z85.038 Personal history of other malignant neoplasm of large intestine
CPT/HCPCS: 36415; 80053; 85025

== ENCOUNTER 2020-10-15 12:00 | Emergency (ER) | payer MEDICARE, SELFPAY ==
[2020-10-15 12:01] VITALS: BP 182/104; PULSE 75; RESP 16; TEMP 36.4; O2SAT 98; BMI 26.4
--- NOTE | 2020-10-15 12:09 | RAD_ITS ---
STUDY: X-RAY - RIGHT FOOT CLINICAL: Female, 65 years old. Rolled ankle 2 days ago TECHNIQUE: 3 view(s) of the foot. COMPARISON: None. FINDINGS: There is a plantar calcaneal spur. Normal visualized subtalar, talonavicular, calcaneocuboid, tarsal and tarsometatarsal articulations. Normal metatarsi. There is degenerative arthrosis of the metatarsophalangeal joint of the hallux with a hallux valgus deformity. Normal tibial and fibular sesamoid bones. Normal interphalangeal joint of the great toe. Normal phalanges of the great toe. Normal second through fifth metatarsophalangeal joints. Normal interphalangeal joints and phalanges of the lesser toes. There is non-specific soft tissue swelling of the foot. RAD/Foot min 3 Views IMPRESSION: Calcaneal plantar spur is Soft tissue swelling. Patient is known to have a nondisplaced transverse fracture of the lateral malleolus. Electronically Signed: Law Gaxiola, at 12:36 EST , Service support ,
--- NOTE | 2020-10-15 12:10 | RAD_ITS ---
STUDY: X-RAY - RIGHT ANKLE REASON FOR EXAM: Female, 65 years old. Rolled ankle 2 days ago TECHNIQUE: 3 view(s) of the ankle. COMPARISON: None. FINDINGS: Normal visualized distal tibia and fibula. Nondisplaced transverse fracture of the lateral malleolus. Normal tibiotalar articulation and ankle mortise. Calcaneal plantar spur. The visualized subtalar, talonavicular, calcaneocuboid and tarsal articulations are normal. Diffuse soft tissue swelling worse on the lateral side. RAD/Ankle min 3 Views IMPRESSION: Nondisplaced transverse fracture of the lateral malleolus with overlying soft tissue swelling. Electronically Signed: Law Gaxiola, at 12:34 EST , Service support ,
--- NOTE | 2020-10-15 12:10 | ED.VIS.GEN ---
History of Present Illness Chief Complaint: Lower Extremity Injury Informant: Patient Narrative: Patient presents for the evaluation of right ankle and foot injury. Patient was out picking up sticks the other day and stepped off the curb resulted in inversion injury to the right ankle. She notes swelling and bruising. She denies any other injuries. Past Medical History - Allergies and Home Meds Allergies/Adverse Reactions: Allergies No Known Allergies Allergy (Verified 10/15/20 12:00) Primary Care Physician: Suri Tyler DO [Primary Care Provider] - Surgical History: noncontributory Smoking Status: Never smoker Drugs: None Review of Systems General: Denies: Chills, Fever, Sweats Eyes: Denies: Visual changes - bilaterally, Diplopia ENT: Denies: Rhinorrhea, Sore throat Cardiovascular: Denies: Chest pain, Palpitations Respiratory: Denies: Dyspnea, Cough, Dyspnea on exertion Gastrointestinal: Denies: Abdominal pain, Nausea, Vomiting, Diarrhea, Melena, Hematochezia Genitourinary: Denies: Dysuria, Hematuria, Frequency Musculoskeletal: Reports: Swelling, Extremity Pain. Denies: Back pain Skin: Denies: Rash, Wounds Neurological: Denies: Headache, Weakness, Numbness Physical Exam Vital Signs/Narrative: Vital Signs Temp Pulse Resp BP Pulse Ox 10/15/20 12:01 97.6 F L 75 16 182/104 H 98 Inital Vital Signs reviewed: Yes General: Well nourished, Well developed, No Acute Distress Head: Normocephalic, Atraumatic Eyes: Perrl, EOMI ENT: Moist mucous membranes, No rhinorrhea Neck: Supple, Nontender Cardiovascular: Regular rate, Regular rhythm, No murmurs Respiratory: No distress, CTA bilaterally, Chest nontender Abdomen: Soft, Nontender, Nondistended, Normal bowel sounds Back: Nontender, Normal Inspection Extremities: Tenderness - Tender to palpation medial lateral malleolus with significant swelling and ecchymosis. Achilles appears intact negative Shields's. No fifth metatarsal tenderness or fibular head tenderness, Edema Skin: Normal color, No rash Neurological: Alert, Oriented x3, Cranial nerves II-XII grossly intact, Normal Strength, Normal Sensation Psychological: Normal affect, Normal Mood Diagnostic/Tx/Re-eval Clinical Impression(s) from Imaging Studies Foot X-Ray 10/15/20 12:09 IMPRESSION: Calcaneal plantar spur is Soft tissue swelling. Patient is known to have a nondisplaced transverse fracture of the lateral malleolus. Electronically Signed: Law Minor, at 12:36 EST , Service support , Ankle X-Ray 10/15/20 12:10 IMPRESSION: Nondisplaced transverse fracture of the lateral malleolus with overlying soft tissue swelling. Electronically Signed: Law Minor, at 12:34 EST , Service support , - Medical Decision Making Patient will be placed in a walking boot given crutches for touchdown weightbearing. She has seen Dr. Dahl in the past for hip replacement. ED Disposition - Plan for ED Patient: Disposition: Home or Assisted Living Diagnosis: Closed right ankle fracture Instructions: ED Ankle Fx Distal Fibula Referrals: Gopi Dahl MD [STAFF PHYSICIAN] - (call to arrange follow up)
== END 2020-10-15 13:32 | disposition home or self-care (01) ==
PROVIDERS: Emergency Provider Emergency Medicine; PCP Family Medicine
DX: S82.891A Other fracture of right lower leg, initial encounter for closed fracture (principal); X58.XXXA Exposure to other specified factors, initial encounter
CPT/HCPCS: 73610; 73630; 99284

== ENCOUNTER → 2020-10-17 13:05 | Outpatient (CLI) | payer MEDICARE, SELFPAY ==
[2020-10-15 12:01] VITALS: BMI 26.4
[2020-10-17 15:35] LABS: Absolute Lymphocyte Count 1.89 X10^3/uL (0.83-4.51); Absolute Neutrophil Count 2.9 X10^3/uL (2.0-7.7); Basophil# 0.04 X10^3/uL; Basophil% 0.7 % (0-1); Eosinophils% 1.9 % (0-5); Hematocrit 42.8 % (37-47); Hemoglobin 13.4 g/dL (12.0-15.0); Lymphocyte # 1.89 X10^3/ul (4.0); Lymphocyte % 35.3 % (19-41); Mean Corp Hgb Conc 31.3 g/dL (32-36); Mean Corpuscular Hgb 32.8 pg (27.0-32.0); Mean Corpuscular Volume 104.6 fL (81-99); Mean Platelet Vol. 10.2 fl (6.2-12.0); Monocyte# 0.42 X10^3/uL; Monocyte% 7.8 % (0-10); NRBC Flagged by Analyzer 0 % (0-5); Neutrophil % 54.1 % (47-70); Platelet Count 284 K/mm3 (150-450); RBC Distribution Width CV 14.7 % (11.6-14.6); RBC Distribution Width SD 56.9 fl (35.1-43.9); Red Blood Count 4.09 M/mm3 (4.2-5.4); White Blood Count 5.4 K/mm3 (4.4-11.0)
[2020-10-17 16:01] LABS: ALB/GLOB Ratio 1.2 RATIO (0.9-2.4); AST(SGOT) 15 U/L (15-37); Alanine Aminotransfer ALT/SGPT 20 U/L (13-56); Albumin, Serum 3.7 g/dL (3.2-5.0); Alkaline Phosphatase 65 U/L (45-117); Anion Gap 4 (5-15); BUN 11 mg/dL (7-18); BUN/Creat Ratio 14.7 RATIO (10-20); Calcium,Total 8.9 mg/dL (8.5-10.1); Chloride 106 mmol/L (98-107); Creatinine, Serum 0.75 mg/dL (0.55-1.02); EST Glomerular Filtration Rate 83 mL/min (>60); Est Glom Filt Rate - Afr Amer 101 mL/min (>60); Globulin 3.1 g/dL (2.2-4.2); Glucose 79 mg/dL (74-106); Potassium 4.2 mmol/L (3.5-5.1); Protein, Total 6.8 g/dL (6.4-8.2); Sodium Level 140 mmol/L (136-145)
== END ==
PROVIDERS: PCP Family Medicine; Referring Provider Internal Medicine Rheumatology; Visit Provider Internal Medicine Rheumatology
DX: M06.4 Inflammatory polyarthropathy (principal); M79.7 Fibromyalgia; M25.511 Pain in right shoulder; M47.897 Other spondylosis, lumbosacral region; E88.41 MELAS syndrome; Z85.038 Personal history of other malignant neoplasm of large intestine; Z79.899 Other long term (current) drug therapy
CPT/HCPCS: 36415; 80053; 85025

== ENCOUNTER → 2021-01-01 12:49 | Outpatient (CLI) | payer MEDICARE, SELFPAY ==
[2021-01-01 15:32] LABS: Absolute Lymphocyte Count 1.69 X10^3/uL (0.83-4.51); Absolute Neutrophil Count 3.3 X10^3/uL (2.0-7.7); Basophil# 0.03 X10^3/uL; Basophil% 0.5 % (0-1); Eosinophil# 0.06 X10^3/uL; Eosinophils% 1.1 % (0-5); Hematocrit 42.5 % (37-47); Hemoglobin 13.4 g/dL (12.0-15.0); Lymphocyte # 1.69 X10^3/ul (4.0); Lymphocyte % 30.2 % (19-41); Mean Corp Hgb Conc 31.5 g/dL (32-36); Mean Corpuscular Hgb 31.3 pg (27.0-32.0); Mean Corpuscular Volume 99.3 fL (81-99); Monocyte# 0.49 X10^3/uL; Monocyte% 8.8 % (0-10); NRBC Flagged by Analyzer 0 % (0-5); Platelet Count 298 K/mm3 (150-450); RBC Distribution Width CV 13.7 % (11.6-14.6); RBC Distribution Width SD 49.9 fl (35.1-43.9); Red Blood Count 4.28 M/mm3 (4.2-5.4); White Blood Count 5.6 K/mm3 (4.4-11.0)
[2021-01-01 15:50] LABS: ALB/GLOB Ratio 1.2 RATIO (0.9-2.4); AST(SGOT) 15 U/L (15-37); Alanine Aminotransfer ALT/SGPT 20 U/L (13-56); Albumin, Serum 3.8 g/dL (3.2-5.0); Alkaline Phosphatase 64 U/L (45-117); Anion Gap 3 (5-15); BUN 13 mg/dL (7-18); Calcium,Total 9.1 mg/dL (8.5-10.1); Chloride 104 mmol/L (98-107); Creatinine, Serum 0.68 mg/dL (0.55-1.02); EST Glomerular Filtration Rate 92 mL/min (>60); Est Glom Filt Rate - Afr Amer 112 mL/min (>60); Globulin 3.1 g/dL (2.2-4.2); Glucose 87 mg/dL (74-106); Potassium 4.2 mmol/L (3.5-5.1); Protein, Total 6.9 g/dL (6.4-8.2); Sodium Level 138 mmol/L (136-145)
== END ==
PROVIDERS: PCP Family Medicine; Referring Provider Internal Medicine Rheumatology; Visit Provider Internal Medicine Rheumatology
DX: M06.4 Inflammatory polyarthropathy (principal); M79.7 Fibromyalgia; M15.9 Polyosteoarthritis, unspecified; M47.897 Other spondylosis, lumbosacral region; Z85.038 Personal history of other malignant neoplasm of large intestine; Z79.899 Other long term (current) drug therapy
CPT/HCPCS: 36415; 80053; 85025

== ENCOUNTER → 2021-02-25 11:31 | Outpatient (CLI) | payer MEDICARE, SELFPAY ==
[2021-02-25 15:39] LABS: Absolute Lymphocyte Count 1.84 X10^3/uL (0.83-4.51); Absolute Neutrophil Count 2.4 X10^3/uL (2.0-7.7); Basophil# 0.03 X10^3/uL; Basophil% 0.6 % (0-1); Eosinophil# 0.06 X10^3/uL; Eosinophils% 1.3 % (0-5); Hematocrit 41.9 % (37-47); Hemoglobin 13.2 g/dL (12.0-15.0); Lymphocyte # 1.84 X10^3/ul (4.0); Lymphocyte % 38.4 % (19-41); Mean Corp Hgb Conc 31.5 g/dL (32-36); Mean Corpuscular Hgb 31.7 pg (27.0-32.0); Mean Corpuscular Volume 100.7 fL (81-99); Mean Platelet Vol. 10.6 fl (6.2-12.0); Monocyte# 0.45 X10^3/uL; Monocyte% 9.4 % (0-10); NRBC Flagged by Analyzer 0 % (0-5); Neutrophil % 50.1 % (47-70); Platelet Count 292 K/mm3 (150-450); RBC Distribution Width CV 14.6 % (11.6-14.6); RBC Distribution Width SD 54.1 fl (35.1-43.9); Red Blood Count 4.16 M/mm3 (4.2-5.4); White Blood Count 4.8 K/mm3 (4.4-11.0)
[2021-02-25 15:51] LABS: ALB/GLOB Ratio 1.4 RATIO (0.9-2.4); AST(SGOT) 18 U/L (15-37); Alanine Aminotransfer ALT/SGPT 24 U/L (13-56); Albumin, Serum 3.9 g/dL (3.2-5.0); Alkaline Phosphatase 58 U/L (45-117); Anion Gap 2 (5-15); BUN 10 mg/dL (7-18); BUN/Creat Ratio 13.6 RATIO (10-20); Calcium,Total 8.7 mg/dL (8.5-10.1); Chloride 108 mmol/L (98-107); Creatinine, Serum 0.73 mg/dL (0.55-1.02); EST Glomerular Filtration Rate 85 mL/min (>60); Est Glom Filt Rate - Afr Amer 103 mL/min (>60); Globulin 2.8 g/dL (2.2-4.2); Glucose 114 mg/dL (74-106); Potassium 3.9 mmol/L (3.5-5.1); Protein, Total 6.7 g/dL (6.4-8.2); Sodium Level 140 mmol/L (136-145)
== END ==
PROVIDERS: PCP Family Medicine; Referring Provider Internal Medicine Rheumatology; Visit Provider Internal Medicine Rheumatology
DX: M06.4 Inflammatory polyarthropathy (principal); M79.7 Fibromyalgia; M15.9 Polyosteoarthritis, unspecified; M47.897 Other spondylosis, lumbosacral region; Z79.899 Other long term (current) drug therapy; Z85.038 Personal history of other malignant neoplasm of large intestine
CPT/HCPCS: 36415; 80053; 85025

== ENCOUNTER → 2021-04-23 14:17 | Outpatient (CLI) | payer MEDICARE, SELFPAY ==
[2021-04-23 17:33] LABS: Absolute Lymphocyte Count 2.59 X10^3/uL (0.83-4.51); Absolute Neutrophil Count 4.7 X10^3/uL (2.0-7.7); Basophil# 0.03 X10^3/uL; Basophil% 0.4 % (0-1); Eosinophil# 0.04 X10^3/uL; Eosinophils% 0.5 % (0-5); Hematocrit 40.9 % (37-47); Hemoglobin 13.2 g/dL (12.0-15.0); Lymphocyte # 2.59 X10^3/ul (0.83-4.51); Lymphocyte % 32.7 % (19-41); Mean Corp Hgb Conc 32.3 g/dL (32-36); Mean Corpuscular Hgb 32.3 pg (27.0-32.0); Mean Platelet Vol. 10.2 fl (6.2-12.0); Monocyte# 0.51 X10^3/uL; Monocyte% 6.4 % (0-10); NRBC Flagged by Analyzer 0 % (0-5); Neutrophil # 4.72 X10^3/uL (2.7-7.7); Neutrophil % 59.7 % (47-70); Platelet Count 300 K/mm3 (150-450); RBC Distribution Width CV 14.1 % (11.6-14.6); RBC Distribution Width SD 51.8 fl (35.1-43.9); Red Blood Count 4.09 M/mm3 (4.2-5.4); White Blood Count 7.9 K/mm3 (4.4-11.0)
[2021-04-23 17:49] LABS: ALB/GLOB Ratio 1.3 RATIO (0.9-2.4); AST(SGOT) 18 U/L (15-37); Alanine Aminotransfer ALT/SGPT 19 U/L (13-56); Alkaline Phosphatase 60 U/L (45-117); Anion Gap 7 (5-15); BUN 12 mg/dL (7-18); BUN/Creat Ratio 16.8 RATIO (10-20); Calcium,Total 9.1 mg/dL (8.5-10.1); Chloride 106 mmol/L (98-107); Creatinine, Serum 0.72 mg/dL (0.55-1.02); EST Glomerular Filtration Rate 88 mL/min (>60); Est Glom Filt Rate - Afr Amer 106 mL/min (>60); Globulin 3.1 g/dL (2.2-4.2); Glucose 77 mg/dL (74-106); Potassium 3.4 mmol/L (3.5-5.1); Protein, Total 7.1 g/dL (6.4-8.2); Sodium Level 140 mmol/L (136-145)
== END ==
PROVIDERS: PCP Family Medicine; Referring Provider Internal Medicine Rheumatology; Visit Provider Internal Medicine Rheumatology
DX: M06.4 Inflammatory polyarthropathy (principal); M79.7 Fibromyalgia; M15.9 Polyosteoarthritis, unspecified; M47.897 Other spondylosis, lumbosacral region; Z85.038 Personal history of other malignant neoplasm of large intestine; Z79.899 Other long term (current) drug therapy
CPT/HCPCS: 36415; 80053; 85025

== ENCOUNTER → 2021-08-17 13:18 | Outpatient (CLI) | payer MEDICARE, SELFPAY ==
[2021-08-17 15:00] LABS: Absolute Neutrophil Count 2.6 X10^3/uL (2.0-7.7); Basophil# 0.03 X10^3/uL; Basophil% 0.7 % (0-1); Eosinophil# 0.06 X10^3/uL; Eosinophils% 1.4 % (0-5); Hematocrit 40.7 % (37-47); Hemoglobin 13.2 g/dL (12.0-15.0); Lymphocyte % 27.9 % (19-41); Mean Corp Hgb Conc 32.4 g/dL (32-36); Mean Corpuscular Hgb 32.5 pg (27.0-32.0); Mean Corpuscular Volume 100.2 fL (81-99); Mean Platelet Vol. 9.7 fl (6.2-12.0); Monocyte# 0.41 X10^3/uL; Monocyte% 9.5 % (0-10); NRBC Flagged by Analyzer 0 % (0-5); Neutrophil % 60.5 % (47-70); Platelet Count 273 K/mm3 (150-450); RBC Distribution Width SD 48.1 fl (35.1-43.9); Red Blood Count 4.06 M/mm3 (4.2-5.4); White Blood Count 4.3 K/mm3 (4.4-11.0)
[2021-08-17 15:17] LABS: ALB/GLOB Ratio 1.3 RATIO (0.9-2.4); AST(SGOT) 22 U/L (15-37); Alanine Aminotransfer ALT/SGPT 22 U/L (13-56); Alkaline Phosphatase 71 U/L (45-117); Anion Gap 5 (5-15); BUN 11 mg/dL (7-18); Calcium,Total 9.1 mg/dL (8.5-10.1); Chloride 104 mmol/L (98-107); Creatinine, Serum 0.74 mg/dL (0.55-1.02); EST Glomerular Filtration Rate 85 mL/min (>60); Est Glom Filt Rate - Afr Amer 102 mL/min (>60); Glucose 107 mg/dL (74-106); Potassium 4.1 mmol/L (3.5-5.1); Sodium Level 140 mmol/L (136-145)
== END ==
PROVIDERS: PCP Family Medicine; Referring Provider Internal Medicine Rheumatology; Visit Provider Internal Medicine Rheumatology
DX: M06.4 Inflammatory polyarthropathy (principal); M79.7 Fibromyalgia; M15.9 Polyosteoarthritis, unspecified; M47.897 Other spondylosis, lumbosacral region; Z85.038 Personal history of other malignant neoplasm of large intestine; Z79.899 Other long term (current) drug therapy
CPT/HCPCS: 36415; 80053; 85025

== ENCOUNTER → 2021-09-03 10:18 | Outpatient (CLI) | payer MEDICARE, SELFPAY ==
--- NOTE | 2021-09-03 10:21 | RAD_ITS ---
STUDY: X-RAY - RIGHT SHOULDER REASON FOR EXAM: Female, 65 years old. Shoulder pain. TECHNIQUE: 4 view(s) of the shoulder. COMPARISON: 06/05/2020 FINDINGS: Osteopenia. Stable mild arthrosis of the glenohumeral joint and acromioclavicular joints. Mild sclerosis of the greater tuberosity. The soft tissue structures are unremarkable. Normal visualized pulmonary apex. RAD/Shoulder min 2 Views IMPRESSION: Osteopenia with stable mild sclerosis of the greater tuberosity and mild osteoarthritic changes of the glenohumeral and acromioclavicular joints. Electronically Signed: Jered Hernandez MD at 11:53 EDT , Service support ,
== END ==
PROVIDERS: PCP Family Medicine; Referring Provider Nurse Practitioner Family; Visit Provider Nurse Practitioner Family
DX: M25.519 Pain in unspecified shoulder (principal)
CPT/HCPCS: 73030

== ENCOUNTER 2021-11-08 16:09 | Inpatient (IN) | payer MEDICARE, SELFPAY ==
[2021-11-08] VITALS (8 sets, daily range): BP systolic 110–120; BP diastolic 69–74; PULSE 65–83; RESP 20–31; TEMP 36.9–37.4; O2SAT 92–95; BMI 28.1
--- NOTE | 2021-11-08 16:13 | EKG12_ITS ---
Test Reason : CP Blood Pressure : / mmHG Vent. Rate : 074 BPM Atrial Rate : 074 BPM P-R Int : 142 ms QRS Dur : 080 ms QT Int : 412 ms P-R-T Axes : 029 042 059 degrees QTc Int : 457 ms Normal sinus rhythm Nonspecific ST abnormality Abnormal ECG Confirmed by EMY WEST, FLORENTINO ([id number]), map editor SHASHANK RUIZ ([id number]) on 11/11/2021 10:43:02 AM Referred By: CRISS Confirmed By:FLORENTINO QUEVEDO MD
--- NOTE | 2021-11-08 16:52 | RAD_ITS ---
EXAM: XR CHEST, 1 VIEW : 1955 CLINICAL INDICATION: SOB TECHNIQUE: Frontal view of the chest. This report was created using [employer] report generation technology. COMPARISON: None. FINDINGS: LUNGS AND PLEURAL SPACES: There is patchy bilateral airspace disease. No pneumothorax. No effusion. HEART: Unremarkable. Cardiac silhouette not enlarged. MEDIASTINUM: Central airways and mediastinal contour are unremarkable. BONES/JOINTS: Unremarkable. SOFT TISSUES: Unremarkable. RAD/Chest 1 View (Portable) IMPRESSION: Diffuse patchy bilateral airspace disease which may represent pneumonia. at 1726 Reported and signed by: Noman Bishop MD Electronically Signed: Noman Bishop MD at 17:25 EST Tel , Service support ,
[2021-11-08 18:36] LABS: Absolute Lymphocyte Count 0.61 X10^3/uL (0.83-4.51); Absolute Neutrophil Count 5.2 X10^3/uL (2.0-7.7); Basophil# 0.01 X10^3/uL; Basophil% 0.2 % (0-1); Lymphocyte # 0.61 X10^3/ul (0.83-4.51); Lymphocyte % 9.8 % (19-41); Mean Corp Hgb Conc 33.3 g/dL (32-36); Mean Corpuscular Hgb 32.3 pg (27.0-32.0); Mean Corpuscular Volume 96.8 fL (81-99); Mean Platelet Vol. 10.9 fl (6.2-12.0); Monocyte# 0.33 X10^3/uL; Monocyte% 5.3 % (0-10); NRBC Flagged by Analyzer 0 % (0-5); Neutrophil # 5.23 X10^3/uL (2.7-7.7); Neutrophil % 84.1 % (47-70); Platelet Count 188 K/mm3 (150-450); RBC Distribution Width CV 13.9 % (11.6-14.6); RBC Distribution Width SD 49.3 fl (35.1-43.9); Red Blood Count 4.03 M/mm3 (4.2-5.4); White Blood Count 6.2 K/mm3 (4.4-11.0)
[2021-11-08 18:54] LABS: ALB/GLOB Ratio 0.8 RATIO (0.9-2.4); AST(SGOT) 38 U/L (15-37); Alanine Aminotransfer ALT/SGPT 18 U/L (13-56); Albumin, Serum 2.8 g/dL (3.2-5.0); Alkaline Phosphatase 59 U/L (45-117); Anion Gap 12 (5-15); BUN 14 mg/dL (7-18); BUN/Creat Ratio 20.5 RATIO (10-20); Calcium,Total 8.4 mg/dL (8.5-10.1); Chloride 105 mmol/L (98-107); Creatinine, Serum 0.68 mg/dL (0.55-1.02); EST Glomerular Filtration Rate 92 mL/min (>60); Est Glom Filt Rate - Afr Amer 111 mL/min (>60); Estimated Creatinine Clearance 81.28 ml/min; Globulin 3.7 g/dL (2.2-4.2); Glucose 99 mg/dL (74-106); Potassium 3.4 mmol/L (3.5-5.1); Protein, Total 6.5 g/dL (6.4-8.2); Sodium Level 138 mmol/L (136-145)
--- NOTE | 2021-11-08 19:03 | ED.VIS.DYS ---
HPI History of Present Illness Chief Complaint: Shortness of Breath Informant: patient Onset/Context/Timing Onset: Days (Onset approximately 5 days ago) Context: sudden Timing: Continuous Quality: Positive for Dyspnea on exertion and Wheezing; Negative for Orthopnea and PND Current Severity: Moderate Maximum Severity: Severe Worsened by: Exertion and Coughing Relieved by: Nothing Associated Symptoms cough, rhinorrhea, post nasal drip, fever, sore throat, chills, clear sputum and white sputum; Negative for ear pain, sweats, yellow sputum, green sputum or other Chest Pain: Positive for None Narrative Narrative: Patient is a 66-year-old woman with known past history of hypertension and rheumatoid arthritis on immunosuppressive meds who presents with Covid-like symptoms. She has headache, rhinorrhea, congestion and postnasal drainage. She does report sore throat. She has no appetite. She does complain of mild ear pain. Denies ringing or ears. She denies neck pain or neck stiffness. Her cough is slightly productive of clear to white sputum. She does have shortness of breath and extreme shortness of breath with walking 5 feet. She denies chest discomfort. Denies history of VTE. Denies leg pain, swelling discoloration. She is not on any medication. She does report diarrhea. She denies vomiting. She denies dysuria, frequency, urgency or hematuria. She has not noted a rash. PE Risk Factors: Negative for Cancer, OCP + Smoking + > 35, Prior DVT or PE, Recent immobilization, Recent surgery and Recent travel Prior similar symptoms: No Recent Illness/Hospitalization: No PFSH PFSH Medical History (Updated 11/08/21 @ 19:[address] Austin Zimmerman MD) GERD (gastroesophageal reflux disease) Hyperthyroidism Non-smoker Rheumatoid arthritis Medical History no medical history no medical history Allergy/AdvReac Type Severity Reaction Status Date / Time No Known Allergies Allergy Verified 11/08/21 16:09 Surgical History no surgical history no surgical history Social History (Updated 11/08/21 @ 19:[address] Austin Zimmerman MD) household members: spouse Smoking Status: Never smoker substance use type: does not use ROS ROS ED Constitutional Constitutional ED: Reports chills, fever(s) and sweats; Denies weight loss Eyes Eyes: Denies blurry vision, change in vision or diplopia ENT ENT ED: Reports rhinorrhea and sore throat; Denies ear pain Cardiovascular Cardiovascular: Reports palpitations; Denies chest pain, orthopnea, paroxysmal nocturnal dyspnea or racing heartbeat Respiratory/Chest Respiratory/Chest: Reports cough, dyspnea, dyspnea on exertion and sputum; Denies orthopnea or paroxysmal nocturnal dyspnea Gastrointestinal Gastrointestinal: Reports diarrhea; Denies abdominal pain, melena, nausea or vomiting Genitourinary Genitourinary ED: Denies dysuria, hematuria or urinary frequency Musculoskeletal Musculoskeletal: Reports myalgias; Denies arthralgias, back pain or neck pain Integumentary Denies rash Neurologic Neurologic: Reports headache(s) and weakness; Denies paresthesias Endocrine Endocrinology: Denies polydipsia, polyphagia or polyuria Hematologic/Lymphatic Hematologic/Lymphatic: Denies easy bleeding or easy bruising EXAM Physical Exam Const Vital Signs: 11/08/21 16:10 11/08/21 17:49 11/08/21 17:54 Temperature 99.3 F H 98.7 F Temperature Source Temporal Oral Pulse Rate 83 72 Respiratory Rate 20 H 31 H Respiratory Effort Short of Breath Respiratory Pattern Tachypnea Blood Pressure 117/72 120/72 Blood Pressure Mean 87 88 Pulse Ox 93 93 Oxygen Delivery Method Nasal Cannula Nasal Cannula Nasal Cannula Oxygen Flow Rate (L/min) 2 4 4 11/08/21 19:08 Temperature 98.8 F Temperature Source Oral Pulse Rate 76 Respiratory Rate 22 H Respiratory Effort Respiratory Pattern Blood Pressure 117/74 Blood Pressure Mean 88 Pulse Ox 95 Oxygen Delivery Method Nasal Cannula Oxygen Flow Rate (L/min) 4 Positive well nourished, well developed and obese General Appearance ED: well developed, pallor and other And appears ill, pale/ashen with respiratory distress. Pulse ox walking 5 feet dropped to 75%. ; Negative for NAD Nutritional Appearance: obese HEENT Reports TM's clear and dry mucous membranes; Denies moist mucous membranes atraumatic; Negative for tenderness Tympanic Membrane ED: Yes TM's clear Mouth ED: Yes dry mucous membranes Mouth: dry mucous membranes Eyes PERRL and EOMs intact bilaterally General Eye ED: Negative for pale conjunctiva or scleral icterus Neck no lymphadenopathy, supple, no meningeal signs and no JVD Resp No normal respiratory effort and No clear to auscultation bilaterally Auscultation: rales bilateral mid and lower Cardio regular rhythm, S1 normal heart sound, S2 normal heart sound and no murmurs Rate: tachycardic GI non-tender, non-distended and no masses Auscultation: normoactive bowel sounds Palpation: soft Back/Spine no CVA tenderness and normal to inspection General Back: Negative for CVA tenderness Extremity normal to inspection General Extremety ED: Negative for edema or tenderness General Extremity: Negative for edema Neuro oriented x3, CN's II-XII intact bilaterally and no sensory deficits noted [place] Coma Scale: document GCS findings Spontaneous Obeys Commands Oriented 15 Sensorium / Orientation: alert Motor Exam: strength 5/5 throughout Psych Negative for mental status grossly normal Thought Process: normal thought process Skin no wounds General Skin Exam: pallor; Negative for jaundice Lesions: no lesions Rashes: no rashes MDM MDM MDM Narrative Medical decision making narrative: Patient with respiratory distress due to Covid. Chest x-ray reviewed prior to going into examine patient and findings are consistent with patchy infiltrates seen with Covid. Covid test is positive. Because of her decreased level of consciousness an ABG was obtained to rule out CO2 retention. Lab Data Attestation: I reviewed the patient's lab results. Labs: Laboratory Results - last 24 hr 11/08/21 11/08/21 11/08/21 18:10 18:10 18:10 WBC 6.2 RBC 4.03 L Hgb 13.0 Hct 39.0 MCV 96.8 MCH 32.3 H MCHC 33.3 RDW Std Deviation 49.3 H RDW Coeff of Deniz 13.9 Plt Count 188 MPV 10.9 Immature Gran % (Auto) 0.600 Neut % (Auto) 84.1 H Lymph % (Auto) 9.8 L [place] % (Auto) 5.3 Eos % (Auto) 0.0 Baso % (Auto) 0.2 Absolute Neuts (auto) 5.2 Absolute Lymphs (auto) 0.61 L Nucleated RBC % 0 Sodium 138 Potassium 3.4 L Chloride 105 Carbon Dioxide 21.0 Anion Gap 12 BUN 14 Creatinine 0.68 Estim Creat Clear Calc 81.28 Est GFR (MDRD) Af Amer 111 Est GFR (MDRD) Non-Af 92 BUN/Creatinine Ratio 20.5 H Glucose 99 Lactic Acid 1.2 Calcium 8.4 L Total Bilirubin 0.50 AST 38 H ALT 18 Alkaline Phosphatase 59 Total Protein 6.5 Albumin 2.8 L Globulin 3.7 Albumin/Globulin Ratio 0.8 L Radiography Chest X-Ray - ED: 1 View (Bilateral predominantly peripheral patchy multiple lobar infiltrates consistent with Covid. Cardiac silhouette and size normal. Osseous structures are unremarkable.) Diagnostic Testing: Clinical Impression(s) from Imaging Studies Chest X-Ray 11/08/21 16:52 IMPRESSION: Diffuse patchy bilateral airspace disease which may represent pneumonia. at 1726 Reported and signed by: Noman Bishop MD Electronically Signed: Noman Bishop MD at 17:25 EST Tel , Service support , EKG Initial EKG: Attestation: I personally reviewed and interpreted this EKG as follows: Interpretation: Sinus Rhythm (Normal sinus rhythm rate of 74. LA interval is 142 ms. QS duration 80 ms. QT duration 4 to 12 ms. [place] is normal. There is artifact which the computer is reading is nonspecific ST-T wave changes.) Critical Care Time Critical Care Time: Yes Critical care time (excluding procedures): 30-74 minutes (33), Including time spent: (History, physical, documentation, review of prior records, initiation of therapy interpretation of laboratory results and chest x-ray), Discussing w/Patient &/or Family/Welfare Director, Discussing w/Consultants, Arranging Admission or Transfer and Performing Direct Patient Care at Bedside (Management of patient's care until the boarding nurse arrived at 7 PM and hospitalist available for admission) Discharge Plan Triage Chief Complaint: Shortness of Breath ED Provider: Austin Zimmerman Dx/Rx/DC Orders Clinical Impression: Acute respiratory failure with hypoxia, Pneumonia due to 2019-nCoV Primary Care Provider: Suri Tyler Referrals: Suri Tyler, [Primary Care Provider] -
[2021-11-08 19:05] LABS: Lactic Acid 1.2 mmol/L (0.4-1.9)
[2021-11-08] MEDS: dexAMETHasone 10 MG/ML Vial IV (19:14)
--- NOTE | 2021-11-08 19:30 | PCM.HP.STD ---
HPI - General HPI Narrative AUGUSTUS TARIQ, is a 66 F with a significant history of hypothyroidism; rheumatoid arthritis; colon cancer status post colectomy and chemotherapy and chronic back pain who presents with 5-day history of progressively worsening shortness of breath. Associated with her symptoms is anorexia. She denies a fever. She has chills. She reports anorexia. Baseline she lost her sense of taste and smell from chemotherapy. Emergency department doctor reported that per nurse patient oxygen saturation with ambulation was 75%. [facility] Medical History GERD (gastroesophageal reflux disease) Hyperthyroidism Non-smoker Rheumatoid arthritis Medical History no medical history Home Medications dicyclomine 10 mg PO TID 11/08/21 [History Last Taken Unknown] escitalopram oxalate 10 mg PO DAILY 11/08/21 [History Last Taken Unknown] folic acid 1 mg PO DAILY 11/08/21 [History Last Taken Unknown] gabapentin 100 mg PO TID 11/08/21 [History Last Taken Unknown] hydrocodone-acetaminophen 5 - 325 tab PO TID 11/08/21 [History Last Taken Unknown] levothyroxine [Euthyrox] 50 mcg PO DAILY 11/08/21 [History Last Taken Unknown] methotrexate sodium 20 mg PO X1 11/08/21 [History Last Taken Unknown] prednisone 10 mg PO PRN PRN 11/08/21 [History Last Taken Unknown] sulfasalazine 500 mg PO TID 11/08/21 [History Last Taken Unknown] Allergy/AdvReac Type Severity Reaction Status Date / Time No Known Allergies Allergy Verified 11/08/21 16:09 Family History Other Cancer Surgical History H/O lumpectomy H/O tubal ligation History of colectomy Surgical History no surgical history Social History household members: spouse Smoking Status: Never smoker substance use type: does not use ROS ROS Narrative Constitutional: Denies fever. Reports chills, fatigue, anorexia . Eyes: Denies blurry vision, change in eye color, change in vision, discharge from eye(s), double vision, erythema, eye pain, loss of vision or other HEENT: Denies abnormal hearing, dysphagia, ear pain, epistaxis, headache(s), hearing loss, nasal congestion, nasal discharge, post nasal drip, sinus pressure, sore throat or other Cardiovascular: Denies chest pain or palpitations. Denies dyspnea on exertion, orthopnea and paroxysmal nocturnal dyspnea Respiratory/Chest: Reports cough occasionally productive for clear sputum. Reports shortness of breath and wheezes. Gastrointestinal: Denies abdominal pain, coffee ground emesis, constipation, diarrhea, dyspepsia, hematemesis, hematochezia, loose stools, melena, nausea, vomiting or other Genitourinary: Denies burning urination, difficulty urinating, dysuria, hematuria, nocturia, urinary frequency, urinary hesitancy, urinary incontinence, urinary urgency or other Musculoskeletal: Reports myalgia. Reports chronic back pain. Neurologic: Denies abnormal gait, abnormal speech, confusion, disequilibrium, dizziness, focal weakness, headache(s), numbness, paresthesias, seizure-like activity, seizures, syncope, tingling, tremor(s) or other Psychiatric: Denies anxiety, depression, homicidal ideation, suicidal ideation or other Endocrinology: Denies change in body appearance, cold intolerance, excessive sweating, heat intolerance, polydipsia, polyuria or other Hematologic/Lymphatic: Denies anemia, easy bleeding, easy bruising, lymphadenopathy or other Integumentary: Denies rashes Allergic/Immunologic: Denies rhinitis, hives, eczema, asthma or other Vital Signs Vital Signs Vital Signs: 11/08/21 16:10 11/08/21 17:49 11/08/21 17:54 Temperature 99.3 F H 98.7 F Temperature Source Temporal Oral Pulse Rate 83 72 Respiratory Rate 20 H 31 H Respiratory Effort Short of Breath Respiratory Pattern Tachypnea Blood Pressure 117/72 120/72 Blood Pressure Mean 87 88 Pulse Ox 93 93 Oxygen Delivery Method Nasal Cannula Nasal Cannula Nasal Cannula Oxygen Flow Rate (L/min) 2 4 4 11/08/21 19:08 Temperature 98.8 F Temperature Source Oral Pulse Rate 76 Respiratory Rate 22 H Respiratory Effort Respiratory Pattern Blood Pressure 117/74 Blood Pressure Mean 88 Pulse Ox 95 Oxygen Delivery Method Nasal Cannula Oxygen Flow Rate (L/min) 4 Weight Weight: 81.647 kg Body Mass Index (BMI) 28.1 Physical Exam Narrative Physical exam: General: Well-nourished, well-developed. Head: Normocephalic, atraumatic, no tenderness Eyes: PERRLA, EOMI ENT, no trauma, moist mucous membranes, no rhinorrhea Neck: Nontender, full range of motion, no spinal tenderness, deformities, step-off CVS: Regular rate and rhythm. S1-S2 present. No murmur, gallop or rub. Respiratory : Tachypnea. Rales. chest wall nontender, no wheezing Abdomen: Soft, nontender, nondistended, normal bowel sounds, no masses : Deferred Back: Nontender, no CVA tenderness, no midline spinal tenderness, deformities, step-offs Extremities: Nontender full range of motion, no trauma Skin: Normal color, no trauma, abrasions Neuro: Alert, oriented, cranial nerves II through XII grossly intact. Psychiatry: Normal mood. Normal affect. Not depressed. Not anxious. Results Lab / Micro Data Result Diagrams: 11/08/21 18:10 11/08/21 18:10 Labs: Laboratory Results - last 24 hr 11/08/21 18:10: WBC 6.2, RBC 4.03 L, Hgb 13.0, Hct 39.0, MCV 96.8, MCH 32.3 H, MCHC 33.3, RDW Std Deviation 49.3 H, RDW Coeff of Deniz 13.9, Plt Count 188, MPV 10.9, Immature Gran % (Auto) 0.600, Neut % (Auto) 84.1 H, Lymph % (Auto) 9.8 L, [place] % (Auto) 5.3, Eos % (Auto) 0.0, Baso % (Auto) 0.2, Absolute Neuts (auto) 5.2, Absolute Lymphs (auto) 0.61 L, Nucleated RBC % 0 11/08/21 18:10: Sodium 138, Potassium 3.4 L, Chloride 105, Carbon Dioxide 21.0, Anion Gap 12, BUN 14, Creatinine 0.68, Estim Creat Clear Calc 81.28, Est GFR (MDRD) Af Amer 111, Est GFR (MDRD) Non-Af 92, BUN/Creatinine Ratio 20.5 H, Glucose 99, Calcium 8.4 L, Total Bilirubin 0.50, AST 38 H, ALT 18, Alkaline Phosphatase 59, Total Protein 6.5, Albumin 2.8 L, Globulin 3.7, Albumin/Globulin Ratio 0.8 L 11/08/21 18:10: Lactic Acid 1.2 Micro: Microbiology 11/08/21 16:16 Nasal Secretion SARS-CoV-2 Antigen (Rapid) - Final SARS-CoV-2 (COVID 19) Radiology Impression Chest X-Ray 11/08/21 16:52 IMPRESSION: Diffuse patchy bilateral airspace disease which may represent pneumonia. at 1726 Reported and signed by: Noman Bishop MD Electronically Signed: Noman Bishop MD at 17:25 EST Tel , Service support , Assessment & Plan Assessment/Plan (1) Acute respiratory failure with hypoxia: (2) Pneumonia due to 2019-nCoV: PLAN: Acute hypoxemic respiratory failure secondary to SARS- COV 2 Emergency department doctor reported that per nurse patient's oxygen saturation with ambulation was 75%. Tachypnea. Placed on supplemental oxygen to emergency department and continued. A chest x-ray image was independently interpreted and I agree with radiologist interpretation of diffuse patchy bilateral airspace disease. Rapid Covid antigen at the emergency department was positive. Received Decadron the emergency department Decadron continued. Home as needed prednisone . AST is only highly elevated. ALT is normal. Creatinine clearance is appropriate. Will start patient on remdesivir. Review of CBC showed white count of 6.2 with neutrophilia and lymphopenia. Will trend CBC and CMP. Tylenol for fever Mucinex ordered Hypokalemia Potassium mildly low at 3.4. Trend CMP. Hypothyroidism Synthroid continued Rheumatoid arthritis Methotrexate, Sulfasalazine and hydrocodone continued. Gabapentin continued Depression/anxiety Lexapro continued. DVT prophylaxis subcutaneous Lovenox ordered Charges/Coding Visit Charges Inpatient E&M: 00591 Init Hosp L3
[2021-11-08 20:00] LABS: Allen Test Positive; Base Excess -7 mmol/L (-2 to +2); Bicarbonate 17.8 mmol/L (22-26); Blood Gas Specimen Type ART; O2 Delivery Device Cannula; PO2 68 mmHG (75-100); SITE L Radial; SO2 94 % (95-99); Total Carbon Dioxide 19 mmol/L; pCO2 28.3 mmHg (35-45); pH 7.41 (7.35-7.45)
[2021-11-09] VITALS (8 sets, daily range): BP systolic 108–138; BP diastolic 54–79; PULSE 69–86; RESP 18–20; TEMP 35.2–37; O2SAT 7–100; BMI 28.1
--- NOTE | 2021-11-09 01:11 | PCS.PANDOC ---
PANDEMIC DOCUMENTATION INITIATED: Date: 11/09/2021 Time: 99
[2021-11-09] MEDS: guaiFENesin 1,200 MG Tablet 1200 MG PO ×3 (01:21→20:46)
[2021-11-09] MEDS: Enoxaparin 30 MG/0.3 ML Syringe SC ×3 (01:21→20:45)
[2021-11-09] MEDS: 0.9% Saline Lock 10 ML Syringe IV ×2 (01:27→20:45)
[2021-11-09 07:18] LABS: Absolute Lymphocyte Count 0.52 X10^3/uL (0.83-4.51); Absolute Neutrophil Count 3.5 X10^3/uL (2.0-7.7); Hematocrit 40.2 % (37-47); Hemoglobin 13.4 g/dL (12.0-15.0); Lymphocyte # 0.52 X10^3/ul (0.83-4.51); Lymphocyte % 12.4 % (19-41); Mean Corp Hgb Conc 33.3 g/dL (32-36); Mean Corpuscular Hgb 32.3 pg (27.0-32.0); Mean Corpuscular Volume 96.9 fL (81-99); Mean Platelet Vol. 10.8 fl (6.2-12.0); Monocyte# 0.15 X10^3/uL; Monocyte% 3.6 % (0-10); NRBC Flagged by Analyzer 0 % (0-5); Neutrophil # 3.52 X10^3/uL (2.7-7.7); Neutrophil % 83.5 % (47-70); POSITIVE DIFFERENTIAL YES; Platelet Count 185 K/mm3 (150-450); RBC Distribution Width CV 14.1 % (11.6-14.6); RBC Distribution Width SD 50.2 fl (35.1-43.9); Red Blood Count 4.15 M/mm3 (4.2-5.4); White Blood Count 4.2 K/mm3 (4.4-11.0)
[2021-11-09 07:22] LABS: Differential Indicated SCAN CRITERIA MET
[2021-11-09 07:57] LABS: ALB/GLOB Ratio 0.8 RATIO (0.9-2.4); AST(SGOT) 47 U/L (15-37); Alanine Aminotransfer ALT/SGPT 19 U/L (13-56); Albumin, Serum 2.6 g/dL (3.2-5.0); Alkaline Phosphatase 58 U/L (45-117); Anion Gap 8 (5-15); BUN 13 mg/dL (7-18); BUN/Creat Ratio 22.6 RATIO (10-20); Calcium,Total 8.3 mg/dL (8.5-10.1); Chloride 114 mmol/L (98-107); Creatinine, Serum 0.57 mg/dL (0.55-1.02); EST Glomerular Filtration Rate 113 mL/min (>60); Est Glom Filt Rate - Afr Amer 136 mL/min (>60); Estimated Creatinine Clearance 96.96 ml/min; Globulin 3.3 g/dL (2.2-4.2); Glucose 149 mg/dL (74-106); Potassium 4.8 mmol/L (3.5-5.1); Protein, Total 5.9 g/dL (6.4-8.2); Sodium Level 142 mmol/L (136-145)
[2021-11-09] MEDS: sulfaSALAzine 500 MG Tablet PO ×3 (08:41→17:52)
[2021-11-09] MEDS: Escitalopram Oxalate 10 MG Tablet PO (08:42)
[2021-11-09] MEDS: dexAMETHasone 2 MG TABLET 6 MG PO (08:42)
[2021-11-09] MEDS: Gabapentin 100 MG Capsule PO ×3 (08:42→17:52)
[2021-11-09] MEDS: Levothyroxine 50 MCG Tablet PO (08:42)
[2021-11-09] MEDS: Folic Acid 1 MG Tablet PO (08:42)
[2021-11-09] MEDS: Dicyclomine 10 MG Capsule PO ×3 (08:42→17:51)
[2021-11-09] MEDS: HYDROcodone Bitartrate/Apap 5/325 Tablet PO ×3 (08:45→20:46)
--- NOTE | 2021-11-09 12:48 | PCM.PN.HOSP ---
Subjective Subjective Patient is a 66-year-old lady unvaccinated against COVID-19 presented with shortness of breath. Patient was found to be hypoxic in the ER with oxygen saturation of 75% Objective Data Objective Data Vital Signs: Vital Signs Temp Pulse Resp BP Pulse Ox 97.7 F L 73 18 108/61 92 11/09/21 08:38 11/09/21 08:38 11/09/21 08:38 11/09/21 08:38 11/09/21 09:49 Oxygen Flow Rate (L/min) 6 Oxygen Delivery Method Nasal Cannula Weight: 81.647 kg Body Mass Index (BMI) 28.1 Intake & Output: Intake and Output for Last 24 Hours 11/07/21 11/08/21 11/09/21 23:59 23:59 23:59 Intake Total 500 / 500 250 / 250 Balance 500 / 500 250 / 250 Lab / Micro Data Result Diagrams: 11/09/21 06:50 11/09/21 06:50 Labs: Laboratory Results - last 24 hr 11/08/21 18:10: WBC 6.2, RBC 4.03 L, Hgb 13.0, Hct 39.0, MCV 96.8, MCH 32.3 H, MCHC 33.3, RDW Std Deviation 49.3 H, RDW Coeff of Deniz 13.9, Plt Count 188, MPV 10.9, Immature Gran % (Auto) 0.600, Neut % (Auto) 84.1 H, Lymph % (Auto) 9.8 L, [place] % (Auto) 5.3, Eos % (Auto) 0.0, Baso % (Auto) 0.2, Absolute Neuts (auto) 5.2, Absolute Lymphs (auto) 0.61 L, Nucleated RBC % 0 11/08/21 18:10: Sodium 138, Potassium 3.4 L, Chloride 105, Carbon Dioxide 21.0, Anion Gap 12, BUN 14, Creatinine 0.68, Estim Creat Clear Calc 81.28, Est GFR (MDRD) Af Amer 111, Est GFR (MDRD) Non-Af 92, BUN/Creatinine Ratio 20.5 H, Glucose 99, Calcium 8.4 L, Total Bilirubin 0.50, AST 38 H, ALT 18, Alkaline Phosphatase 59, Total Protein 6.5, Albumin 2.8 L, Globulin 3.7, Albumin/Globulin Ratio 0.8 L 12/12/21 18:10: Lactic Acid 1.2 11/09/21 06:50: WBC 4.2 L, RBC 4.15 L, Hgb 13.4, Hct 40.2, MCV 96.9, MCH 32.3 H, MCHC 33.3, RDW Std Deviation 50.2 H, RDW Coeff of Deniz 14.1, Plt Count 185, MPV 10.8, Immature Gran % (Auto) 0.500, Neut % (Auto) 83.5 H, Lymph % (Auto) 12.4 L, [place] % (Auto) 3.6, Eos % (Auto) 0.0, Baso % (Auto) 0.0, Absolute Neuts (auto) 3.5, Absolute Lymphs (auto) 0.52 L, Nucleated RBC % 0, Diff Path Review March11/09/21 06:50: Sodium 142, Potassium 4.8, Chloride 114 H, Carbon Dioxide 20.0 L, Anion Gap 8, BUN 13, Creatinine 0.57, Estim Creat Clear Calc 96.96, Est GFR (MDRD) Af Amer 136, Est GFR (MDRD) Non-Af 113, BUN/Creatinine Ratio 22.6 H, Glucose 149 H, Calcium 8.3 L, Total Bilirubin 0.60, AST 47 H, ALT 19, Alkaline Phosphatase 58, Total Protein 5.9 L, Albumin 2.6 L, Globulin 3.3, Albumin/Globulin Ratio 0.8 L Micro: Microbiology 11/08/21 16:16 Nasal Secretion SARS-CoV-2 Antigen (Rapid) - Final SARS-CoV-2 (COVID 19) ABG Data ABG results: ABG 11/08/21 19:55 Specimen Type ART Sample Site L Radial pH 7.41 Bicarbonate Actual 17.8 L Total CO2 19 Base Excess -7 L O2 Saturation 94 L ABG pCO2 28.3 L ABG pO2 68 L López Test Positive O2 Delivery Device Cannula Liter Flow 4.0 Radiography Diagnostic Testing: Radiology Impression Chest X-Ray 11/08/21 16:52 IMPRESSION: Diffuse patchy bilateral airspace disease which may represent pneumonia. at 1726 Reported and signed by: Noman Bishop MD Electronically Signed: Noman Bishop MD at 17:25 EST Tel , Service support , Physical Exam Narrative GENERAL: cooperative HEENT: Atraumatic; EYES; Anicteric, Normal Conjunctiva NECK; supple, normal thyroid, RESPIRATORY: Diminished to auscultation CARDIOVASCULAR: Regular S1 S2, GI: soft, normoactive bowel sounds, : No Renal angle tenderness; EXTREMITIES: No edema, no clubbing, MUSCULOSKELETAL: no muscle waisting NEURO: Awake; no lateralizing signs. SKIN: No Rash PSYCH; Flat affect Assessment & Plan Assessment/Plan (1) Acute respiratory failure with hypoxia: (2) Pneumonia due to 2019-nCoV: PLAN: Patient is a 66-year-old lady unvaccinated against COVID-19 presented with shortness of breath. Patient was found to be hypoxic in the ER with oxygen saturation of 75% 1. Acute hypoxic respiratory failure ?Secondary to SARS-CoV-2 pneumonia. Patient has been admitted to regular nursing floor placed on supplemental oxygen. Patient was started on Decadron and remdesivir. 2. Hypokalemia ?Corrected protocol 3. Hypothyroidism - Patient is on levothyroxine home dose continued 4. Rheumatoid arthritis ?Patient is on methotrexate 7 sulfasalazine as well as pain meds 6. Depression with anxiety ?Patient is on Lexapro 7. DVT prophylaxis ?Lovenox Charges/Coding Visit Charges Inpatient E&M: 78071 Subs Hosp L3
--- NOTE | 2021-11-09 14:11 | NURSING ---
am meds just arrived from Rx
--- NOTE | 2021-11-09 15:32 | CPS ---
started by nursing
[2021-11-10 02:54] VITALS: BP 105/65; PULSE 72; RESP 20; TEMP 37.6; O2SAT 94
[2021-11-10 02:56] VITALS: O2SAT 94
[2021-11-10] MEDS: 0.9% Saline Lock 10 ML Syringe IV (07:03)
[2021-11-10] MEDS: Ondansetron 4 MG/2 ML Vial IV (07:03)
[2021-11-10] MEDS: HYDROcodone Bitartrate/Apap 5/325 Tablet PO ×3 (07:06→21:26)
--- NOTE | 2021-11-10 08:26 | PCM.PN.HOSP ---
Subjective Subjective Patient remains on high flow oxygen?13 L/min flow saturating 94% Objective Data Objective Data Vital Signs: Vital Signs Temp Pulse Resp BP Pulse Ox 99.6 F H 72 20 H 105/65 94 11/10/21 02:54 11/10/21 02:54 11/10/21 02:54 11/10/21 02:54 11/10/21 02:56 Oxygen Flow Rate (L/min) 13 Oxygen Delivery Method High Flow Weight: 81.647 kg Body Mass Index (BMI) 28.1 Intake & Output: Intake and Output for Last 24 Hours 11/08/21 11/09/21 11/10/21 23:59 23:59 23:59 Intake Total 500 / 500 810 / 810 500 / 500 Balance 500 / 500 810 / 810 500 / 500 Lab / Micro Data Result Diagrams: 11/10/21 08:00 11/10/21 08:00 Micro: Microbiology 11/08/21 16:16 Nasal Secretion SARS-CoV-2 Antigen (Rapid) - Final SARS-CoV-2 (COVID 19) Physical Exam Narrative GENERAL: cooperative HEENT: Atraumatic; EYES; Anicteric, Normal Conjunctiva NECK; supple, normal thyroid, RESPIRATORY: Diminished to auscultation CARDIOVASCULAR: Regular S1 S2, GI: soft, normoactive bowel sounds, : No Renal angle tenderness; EXTREMITIES: No edema, no clubbing, MUSCULOSKELETAL: no muscle waisting NEURO: Awake; no lateralizing signs. SKIN: No Rash PSYCH; Flat affect Assessment & Plan Assessment/Plan (1) Acute respiratory failure with hypoxia: (2) Pneumonia due to 2019-nCoV: PLAN: Patient is a 66-year-old lady unvaccinated against COVID-19 presented with shortness of breath. Patient was found to be hypoxic in the ER with oxygen saturation of 75% 1. Acute hypoxic respiratory failure ?Secondary to SARS-CoV-2 pneumonia. Patient has been admitted to regular nursing floor placed on supplemental oxygen. Patient was started on Decadron and remdesivir. -11/10/2021; Patient remains on high flow oxygen?13 L/min flow saturating 94 2. Hypokalemia ?Corrected protocol 3. Hypothyroidism - Patient is on levothyroxine home dose continued 4. Rheumatoid arthritis ?Patient is on methotrexate 7 sulfasalazine as well as pain meds 6. Depression with anxiety ?Patient is on Lexapro 7. DVT prophylaxis ?Lovenox Charges/Coding Visit Charges Inpatient E&M: 19480 Subs Hosp L3
[2021-11-10 09:13] LABS: Absolute Lymphocyte Count 0.71 X10^3/uL (0.83-4.51); Absolute Neutrophil Count 9.1 X10^3/uL (2.0-7.7); Basophil# 0.02 X10^3/uL; Basophil% 0.2 % (0-1); Hemoglobin 11.5 g/dL (12.0-15.0); Lymphocyte # 0.71 X10^3/ul (0.83-4.51); Lymphocyte % 6.8 % (19-41); Mean Corp Hgb Conc 32.9 g/dL (32-36); Mean Corpuscular Hgb 31.7 pg (27.0-32.0); Mean Corpuscular Volume 96.4 fL (81-99); Mean Platelet Vol. 11.1 fl (6.2-12.0); Monocyte% 4.8 % (0-10); NRBC Flagged by Analyzer 0 % (0-5); Neutrophil # 9.08 X10^3/uL (2.7-7.7); Neutrophil % 87.2 % (47-70); Platelet Count 232 K/mm3 (150-450); RBC Distribution Width CV 14.1 % (11.6-14.6); Red Blood Count 3.63 M/mm3 (4.2-5.4); White Blood Count 10.4 K/mm3 (4.4-11.0)
[2021-11-10 09:22] LABS: Pathologist Review Reviewed
[2021-11-10 09:37] LABS: AST(SGOT) 34 U/L (15-37); Alanine Aminotransfer ALT/SGPT 18 U/L (13-56); Albumin, Serum 2.4 g/dL (3.2-5.0); Alkaline Phosphatase 50 U/L (45-117); Anion Gap 6 (5-15); BUN 15 mg/dL (7-18); BUN/Creat Ratio 29.8 RATIO (10-20); Bilirubin, Direct 0.15 mg/dL (0.00-0.30); Calcium,Total 8.2 mg/dL (8.5-10.1); Chloride 109 mmol/L (98-107); EST Glomerular Filtration Rate 131 mL/min (>60); Est Glom Filt Rate - Afr Amer 158 mL/min (>60); Estimated Creatinine Clearance 110.54 ml/min; Globulin 3.6 g/dL (2.2-4.2); Glucose 115 mg/dL (74-106); Potassium 3.6 mmol/L (3.5-5.1); Sodium Level 141 mmol/L (136-145)
[2021-11-10 09:57] VITALS: BP 106/68; PULSE 68; RESP 20; TEMP 36.8; O2SAT 93
[2021-11-10] MEDS: Levothyroxine 50 MCG Tablet PO (10:01)
[2021-11-10] MEDS: Escitalopram Oxalate 10 MG Tablet PO (10:01)
[2021-11-10] MEDS: Dicyclomine 10 MG Capsule PO ×3 (10:01→21:25)
[2021-11-10] MEDS: guaiFENesin 1,200 MG Tablet 1200 MG PO ×2 (10:01→21:25)
[2021-11-10] MEDS: sulfaSALAzine 500 MG Tablet PO ×3 (10:01→21:25)
[2021-11-10] MEDS: Methotrexate 2.5 MG Tablet 20 MG PO (10:01)
[2021-11-10] MEDS: dexAMETHasone 2 MG TABLET 6 MG PO (10:01)
[2021-11-10] MEDS: Folic Acid 1 MG Tablet PO (10:01)
[2021-11-10] MEDS: Gabapentin 100 MG Capsule PO ×3 (10:01→21:25)
[2021-11-10] MEDS: Enoxaparin 30 MG/0.3 ML Syringe SC ×2 (10:02→21:25)
[2021-11-10 11:49] VITALS: O2SAT 93
--- NOTE | 2021-11-10 12:30 | CASEMGMT ---
RN CM WHAR[employer] BUILDER LIZZ spoke with patient for initial transition planning/care coordination assessment. RN LIZZ introduced self and role at [facility].? Pt voices understanding and consents to assessment at this time.? Pt is A/O at this time and answers all questions appropriately.?? Care providers, pharmacy, and demographics verified/updated at this time. PCP: Dr Suri Tyler in [place] Specialists: Dr Clark-pain mgmt. Dr Castro--rheumatology Preferred Pharmacy: [facility] Retail Insurance: [employer] Prescription Benefit:? Yes Living Will/HPOA:? Pt does not currently have LW/HCPOA and declines info at this time.? LNOK: , [place]ang. 2 sons: Toby Living Arrangements: Lives w/ in one-story home. No steps to enter thru front. Independent w/ADL's and IADL's Transportation: Pt states drives self and states no transportation concerns at this time.? also drives DME: ? Denies using or owning and DME. Encouraged to get a pulse ox. Discussed possible need for O2 @ d/c and made aware of local DME companies. Pt has no preference. HHC/SNF: No hx of SNF, but has had [facility] in the past. Declines need for HHC at this time. Pt wishes to return home and states has no concerns with going home at time of discharge.? CM to follow for home oxygen needs and any further discharge planning/needs.? Pt voices no further concerns/needs at this time.? Advised pt to ask for CM if any further questions/concerns/needs arise.? Voices understanding. PLAN: ?Home. Follow for any O2 needs @ d/c. Kimberly AGRAWAL RN, CM
[2021-11-10 15:28] VITALS: BP 111/67; PULSE 76; RESP 20; TEMP 36.6; O2SAT 90
[2021-11-10 21:30] VITALS: BP 109/68; PULSE 65; RESP 18; TEMP 36.8; O2SAT 93
[2021-11-11] VITALS (15 sets, daily range): BP systolic 94–109; BP diastolic 54–66; PULSE 42–88; RESP 12–26; TEMP 36.6–37.7; O2SAT 82–98
[2021-11-11] MEDS: HYDROcodone Bitartrate/Apap 5/325 Tablet PO ×3 (06:00→21:55)
--- NOTE | 2021-11-11 07:21 | PN.HOSP_ITS ---
Subjective Subjective Patient seen oxygen demand increasing currently on 40 L flow per minute via nasal cannula. Decision was therefore made to consult both pulmonary medicine as well as infectious disease Objective Data Objective Data Vital Signs: Vital Signs Temp Pulse Resp BP Pulse Ox 98.7 F 66 18 94/66 91 11/11/21 06:26 11/11/21 06:26 11/11/21 06:26 11/11/21 06:26 11/11/21 06:26 Oxygen Flow Rate (L/min) 14 Oxygen Delivery Method High Flow Weight: 81.647 kg Body Mass Index (BMI) 28.1 Intake & Output: Intake and Output for Last 24 Hours 11/09/21 11/10/21 11/11/21 23:59 23:59 23:59 Intake Total 810 / 810 1150 / 1390 480 / 480 Balance 810 / 810 1150 / 1390 480 / 480 Lab / Micro Data Result Diagrams: 11/11/21 07:06 11/11/21 07:06 Labs: Laboratory Results - last 24 hr 11/09/21 06:50: Diff Path Review Reviewed 11/10/21 08:00: WBC 10.4, RBC 3.63 L, Hgb 11.5 L, Hct 35.0 L, MCV 96.4, MCH 31.7, MCHC 32.9, RDW Std Deviation 50.0 H, RDW Coeff of Deniz 14.1, Plt Count 232, MPV 11.1, Immature Gran % (Auto) 1.000 H, Neut % (Auto) 87.2 H, Lymph % (Auto) 6.8 L, [place] % (Auto) 4.8, Eos % (Auto) 0.0, Baso % (Auto) 0.2, Absolute Neuts (auto) 9.1 H, Absolute Lymphs (auto) 0.71 L, Nucleated RBC % 0 11/10/21 08:00: Sodium 141, Potassium 3.6, Chloride 109 H, Carbon Dioxide 26.0, Anion Gap 6, BUN 15, Creatinine 0.50 L, Estim Creat Clear Calc 110.54, Est GFR (MDRD) Af Amer 158, Est GFR (MDRD) Non-Af 131, BUN/Creatinine Ratio 29.8 H, Glucose 115 H, Calcium 8.2 L, Total Bilirubin 0.40, Direct Bilirubin 0.15, AST 34, ALT 18, Alkaline Phosphatase 50, Total Protein 6.0 L, Albumin 2.4 L, Globulin 3.6 Micro: Microbiology 11/08/21 16:16 Nasal Secretion SARS-CoV-2 Antigen (Rapid) - Final SARS-CoV-2 (COVID 19) Physical Exam Narrative GENERAL: cooperative HEENT: Atraumatic; EYES; Anicteric, Normal Conjunctiva NECK; supple, normal thyroid, RESPIRATORY: Diminished to auscultation CARDIOVASCULAR: Regular S1 S2, GI: soft, normoactive bowel sounds, : No Renal angle tenderness; EXTREMITIES: No edema, no clubbing, MUSCULOSKELETAL: no muscle waisting NEURO: Awake; no lateralizing signs. SKIN: No Rash PSYCH; Flat affect Assessment & Plan Assessment/Plan (1) Acute respiratory failure with hypoxia: (2) Pneumonia due to 2019-nCoV: PLAN: Patient is a 66-year-old lady unvaccinated against COVID-19 presented with shortness of breath. Patient was found to be hypoxic in the ER with oxygen saturation of 75% 1. Acute hypoxic respiratory failure ?Secondary to SARS-CoV-2 pneumonia. [facility] placed on supplemental oxygen. Patient was started on Decadron and remdesivir. -11/10/2021; Patient remains on high flow oxygen?13 L/min flow saturating 94 -11/11/2021; Patient seen oxygen demand increasing currently on 40 L flow per minute via nasal cannula. Decision was therefore made to consult both pulmonary medicine as well as infectious disease 2. Hypokalemia ?Corrected protocol 3. Hypothyroidism - Patient is on levothyroxine home dose continued 4. Rheumatoid arthritis ?Patient is on methotrexate 7 sulfasalazine as well as pain meds 6. Depression with anxiety ?Patient is on Lexapro 7. DVT prophylaxis ?Lovenox Charges/Coding Visit Charges Inpatient E&M: 39025 Subs Hosp L3
[2021-11-11 07:50] LABS: Absolute Lymphocyte Count 0.46 X10^3/uL (0.83-4.51); Absolute Neutrophil Count 7.3 X10^3/uL (2.0-7.7); Basophil# 0.01 X10^3/uL; Basophil% 0.1 % (0-1); Hematocrit 35.4 % (37-47); Hemoglobin 11.5 g/dL (12.0-15.0); Lymphocyte # 0.46 X10^3/ul (0.83-4.51); Lymphocyte % 5.6 % (19-41); Mean Corp Hgb Conc 32.5 g/dL (32-36); Mean Corpuscular Hgb 31.9 pg (27.0-32.0); Mean Corpuscular Volume 98.3 fL (81-99); Mean Platelet Vol. 10.6 fl (6.2-12.0); Monocyte# 0.41 X10^3/uL; NRBC Flagged by Analyzer 0 % (0-5); Neutrophil # 7.31 X10^3/uL (2.7-7.7); Neutrophil % 88.7 % (47-70); POSITIVE DIFFERENTIAL YES; Platelet Count 241 K/mm3 (150-450); RBC Distribution Width CV 14.2 % (11.6-14.6); RBC Distribution Width SD 51.1 fl (35.1-43.9); White Blood Count 8.2 K/mm3 (4.4-11.0)
[2021-11-11 07:54] LABS: Differential Indicated SCAN CRITERIA MET
[2021-11-11 08:11] LABS: AST(SGOT) 29 U/L (15-37); Alanine Aminotransfer ALT/SGPT 18 U/L (13-56); Albumin, Serum 2.3 g/dL (3.2-5.0); Alkaline Phosphatase 53 U/L (45-117); Anion Gap 4 (5-15); BUN 18 mg/dL (7-18); Bilirubin, Direct 0.16 mg/dL (0.00-0.30); Calcium,Total 8.4 mg/dL (8.5-10.1); Chloride 110 mmol/L (98-107); Creatinine, Serum 0.56 mg/dL (0.55-1.02); EST Glomerular Filtration Rate 115 mL/min (>60); Est Glom Filt Rate - Afr Amer 139 mL/min (>60); Estimated Creatinine Clearance 98.69 ml/min; Globulin 3.4 g/dL (2.2-4.2); Glucose 112 mg/dL (74-106); Potassium 3.9 mmol/L (3.5-5.1); Protein, Total 5.7 g/dL (6.4-8.2); Sodium Level 142 mmol/L (136-145)
[2021-11-11] MEDS: Folic Acid 1 MG Tablet PO (08:45)
[2021-11-11] MEDS: Levothyroxine 50 MCG Tablet PO (08:45)
[2021-11-11] MEDS: Gabapentin 100 MG Capsule PO ×3 (08:45→18:35)
[2021-11-11] MEDS: sulfaSALAzine 500 MG Tablet PO ×2 (08:45→12:49)
[2021-11-11] MEDS: guaiFENesin 1,200 MG Tablet 1200 MG PO ×2 (08:45→21:55)
[2021-11-11] MEDS: Escitalopram Oxalate 10 MG Tablet PO (08:45)
[2021-11-11] MEDS: Enoxaparin 30 MG/0.3 ML Syringe SC ×2 (08:46→21:55)
[2021-11-11] MEDS: dexAMETHasone 2 MG TABLET 6 MG PO (08:46)
[2021-11-11] MEDS: Dicyclomine 10 MG Capsule PO ×3 (08:46→18:35)
--- NOTE | 2021-11-11 08:54 | NURSING ---
Addendum entered by Lily Huff 11/11/21 11:46: pt laid prone for 2 hours but when she returned to supine, O2 returned to low 80s. pt encouraged to lay on side, respiratory therapy notified and placed pt on airvo. Original Note: pt O2 dropped to 83% while sitting up in bed eating breakfast. O2 increased to 15L NC but not improvement to spo2. assisted pt to lay prone in bed and O2 improved quickly to 94%
--- NOTE | 2021-11-11 11:50 | CON.PCM.CC_ITS ---
Assessment & Plan Assessment/Plan (1) Acute respiratory failure with hypoxia: (2) Pneumonia due to 2019-nCoV: PLAN: RECOMMENDATIONS: 1. Wean FiO2 to maintain oxygen saturations at or above 90%. 2. Discontinue baseline immunosuppressive agents. 3. Check CRP, procalcitonin, BNP and D-dimer. 4. If D-dimer is elevated, obtain CTA chest. 5. Continue remdesivir as ordered. Continue to monitor liver and renal function. 6. Continue Decadron to complete 10 days of therapy. 7. Continue prophylactic Lovenox for now. 8. Awake prone positioning was encouraged. 9. The patient is not a candidate for baricitinib therapy. IMPRESSIONS: 1. Acute hypoxemic respiratory failure secondary to COVID-19 pneumonia The patient was admitted to the hospital on November 08 after having tested positive for COVID-19. Symptom onset was sometime around November 03. Her oxygenation status has worsened since her admission. She is currently requiring heated high flow oxygen. Plan to continue to wean FiO2 for saturations greater than 90%. I would recommend that her baseline immunosuppressive agents be held in light of her active infection. She is not a candidate for baricitinib. I would recommend checking a pro calcitonin, BNP and D-dimer. If D-dimer is elevated, obtain CTA chest. Continue prophylactic Lovenox for now along with 10 days of Decadron therapy. 2. Hypothyroidism/rheumatoid arthritis/depression Complicates care, management, recovery and prognosis. Hold home immunosuppressive agents. Continue Synthroid. This note was generated with [employer] dictation software. It may contain incorrect words, spelling, and punctuation that were not noted in checking the note before signing. HPI Consult Data Date of Consult: 11/11/21 HPI Narrative Reason for Consultation: Acute hypoxemic respiratory failure secondary to COVID- 19 pneumonia HPI Narrative: The patient is a 66-year-old female, with a history as outlined below, who presented to the emergency department via EMS on November 08 with exertional dyspnea, headache, nasal congestion and postnasal drip. Symptom onset was November 03. The patient denies any sick contact exposure. She is unvaccinated against coronavirus. She does have a history of rheumatoid arthritis along with a colon cancer history status post colectomy and chemotherapy. On presentation to the emergency department, the patient was noted to be febrile and tachypneic. She was initially saturating 93% on 2 L/min via nasal cannula. Laboratory evaluation revealed no evidence of a leukocytosis. Chemistry profile revealed a potassium of 3.4. Liver and renal function are within normal limits. Rapid coronavirus antigen testing was positive. Chest x-ray demonstrated bilateral airspace opacities. The patient was started on remdesivir, Decadron and prophylactic Lovenox. She was subsequently admitted to the medical surgical floor. Over the course of her hospitalization, to date, she has experienced worsening respiratory status and increasing oxygen demand. [facility] Medical History (Updated 11/09/21 @ 01:04 by Aleida Hawkins) Cancer Chronic pain GERD (gastroesophageal reflux disease) Hyperthyroidism Non-smoker Osteoporosis Rheumatoid arthritis Medical History no medical history Home Medications dicyclomine 10 mg PO TID 11/08/21 [History Last Taken Unknown] escitalopram oxalate 10 mg PO DAILY 11/08/21 [History Last Taken Unknown] folic acid 1 mg PO DAILY 11/08/21 [History Last Taken Unknown] gabapentin 100 mg PO TID 11/08/21 [History Last Taken Unknown] hydrocodone-acetaminophen 5 - 325 tab PO TID 11/08/21 [History Last Taken Unknown] levothyroxine [Euthyrox] 50 mcg PO DAILY 11/08/21 [History Last Taken Unknown] methotrexate sodium 20 mg PO X1 11/08/21 [History Last Taken Unknown] prednisone 10 mg PO PRN PRN 11/08/21 [History Last Taken Unknown] sulfasalazine 500 mg PO TID 11/08/21 [History Last Taken Unknown] Allergy/AdvReac Type Severity Reaction Status Date / Time No Known Allergies Allergy Verified 11/08/21 16:09 Family History Other Cancer Surgical History H/O lumpectomy H/O tubal ligation History of colectomy Surgical History no surgical history Social History household members: spouse Smoking Status: Never smoker substance use type: does not use ROS Constitutional Constitutional: Reports chills, fatigue, headache(s) and malaise Eyes Eyes: Denies blurry vision or change in vision ENT HEENT: Reports headache(s), loss taste/smell and nasal congestion; Denies dizziness or dysphagia Cardiovascular Cardiovascular: Reports dyspnea; Denies chest pain or dizziness Respiratory/Chest Respiratory/Chest: Reports cough and dyspnea Gastrointestinal Gastrointestinal: Denies abdominal pain, diarrhea, nausea or vomiting Genitourinary Genitourinary: Denies difficulty urinating Musculoskeletal Musculoskeletal: Denies arthralgias or back pain Integumentary Integumentary: Denies lesions, rash or skin ulcer Neurologic Neurologic: Denies abnormal gait or abnormal speech Psychiatric Psychiatric: Denies anxiety or depression Endocrine Endocrinology: Reports fatigue Hematologic/Lymphatic Hematologic/Lymphatic: Denies easy bleeding or easy bruising Physical Exam Const alert Constitutional Narrative: Currently on heated high flow oxygen. General Appearance: cooperative Nutritional Appearance: overweight HEENT normocephalic, head/scalp atraumatic and moist oral mucous membranes Eyes PERRL and EOMs intact bilaterally Neck supple General: trachea midline Chest inspection of chest normal Resp Effort and Inspection: tachypneic Auscultation: diminished lung sounds Cardio regular rate and regular rhythm GI normal to inspection, nondistended, normoactive bowel sounds Extremity no clubbing, cyanosis or edema Skin no rashes or lesions noted Neuro CN's II-XII intact bilaterally, moves all extremities and no focal motor deficits Psych cooperative and affect normal Lab / Micro Data Result Diagrams: 11/11/21 07:06 11/11/21 07:06 Labs: Laboratory Results - last 24 hr 11/11/21 07:06: WBC 8.2, RBC 3.60 L, Hgb 11.5 L, Hct 35.4 L, MCV 98.3, MCH 31.9, MCHC 32.5, RDW Std Deviation 51.1 H, RDW Coeff of Deniz 14.2, Plt Count 241, MPV 10.6, Immature Gran % (Auto) 0.600, Neut % (Auto) 88.7 H, Lymph % (Auto) 5.6 L, [place] % (Auto) 5.0, Eos % (Auto) 0.0, Baso % (Auto) 0.1, Absolute Neuts (auto) 7.3, Absolute Lymphs (auto) 0.46 L, Nucleated RBC % 0, Differential Comment COMMENT 11/11/21 07:06: Sodium 142, Potassium 3.9, Chloride 110 H, Carbon Dioxide 28.0, Anion Gap 4 L, BUN 18, Creatinine 0.56, Estim Creat Clear Calc 98.69, Est GFR (MDRD) Af Amer 139, Est GFR (MDRD) Non-Af 115, BUN/Creatinine Ratio 32.0 H, Glucose 112 H, Calcium 8.4 L, Total Bilirubin 0.50, Direct Bilirubin 0.16, AST 29, ALT 18, Alkaline Phosphatase 53, Total Protein 5.7 L, Albumin 2.3 L, Globulin 3.4 Micro: Microbiology 11/08/21 18:10 Blood Culture (Wb) - Left Hand Blood Culture - Preliminary No growth in 48 hours. 11/08/21 18:20 Blood Culture (Wb) - Left Hand Blood Culture - Preliminary No growth in 48 hours. Charges/Coding Visit Charges Inpatient E&M: 86654 Init Hosp L3
[2021-11-11 12:55] LABS: BNP,B-Type NATRIURETIC PEPTIDE 206.4 pg/mL (0-100)
[2021-11-11 13:29] LABS: D-Dimer Quantitative (DVT/PE) 1.03 FEU/ug/m (0.27-0.49)
[2021-11-11 13:50] LABS: Procalcitonin 0.17 ng/mL (0.00-0.09)
--- NOTE | 2021-11-11 15:10 | CON.PCM.ID_ITS ---
Assessment & Plan Assessment/Plan (1) Acute respiratory failure with hypoxia: (2) Pneumonia due to 2019-nCoV: PLAN: Sx since 11/03. Isolate until 11/23. Unvaccinated, recommended vaccine and reviewed risks and benefits once she is out of isolation; she is unconvinced. Cont dex and remdesivir. Given immunosuppressed status, not candidate for baricitinib; would recommend holding methotrexate while she is hospitalized with covid. Sputum cx to be collected. Will follow, thank you HPI Consult Data Date of Consult: 11/11/21 HPI Narrative HPI Narrative: AUGUSTUS TARIQ, is a 66 F with rheumatoid arthritis, on methotrexate, presented 11/08 with sx since 11/03. Unvaccinated. C/o headache, cough, fatigue, loss of appetite. Has not had taste/smell for several years. Lives with , he is vaccinated, asymptomatic. Came to ED, now on airvo, given dex and remdesivir. Some yellow sputum today. Full ROS performed and neg except as noted above. [facility] Medical History Cancer Chronic pain GERD (gastroesophageal reflux disease) Hyperthyroidism Non-smoker Osteoporosis Rheumatoid arthritis Medical History no medical history Home Medications dicyclomine 10 mg PO TID 11/08/21 [History Last Taken Unknown] escitalopram oxalate 10 mg PO DAILY 11/08/21 [History Last Taken Unknown] folic acid 1 mg PO DAILY 11/08/21 [History Last Taken Unknown] gabapentin 100 mg PO TID 11/08/21 [History Last Taken Unknown] hydrocodone-acetaminophen 5 - 325 tab PO TID 11/08/21 [History Last Taken Unknown] levothyroxine [Euthyrox] 50 mcg PO DAILY 11/08/21 [History Last Taken Unknown] methotrexate sodium 20 mg PO X1 11/08/21 [History Last Taken Unknown] prednisone 10 mg PO PRN PRN 11/08/21 [History Last Taken Unknown] sulfasalazine 500 mg PO TID 11/08/21 [History Last Taken Unknown] Allergy/AdvReac Type Severity Reaction Status Date / Time No Known Allergies Allergy Verified 11/08/21 16:09 Family History Other Cancer Surgical History H/O lumpectomy H/O tubal ligation History of colectomy Surgical History no surgical history Social History household members: spouse Smoking Status: Never smoker substance use type: does not use Physical Exam Const alert and oriented x3 General Appearance: cooperative Exam Limitations: no limitations HEENT normocephalic and head/scalp atraumatic Eyes PERRL and EOMs intact bilaterally Neck supple and No nodes Resp Auscultation: diminished lung sounds Cardio regular rate and regular rhythm GI normal to inspection, nondistended, normoactive bowel sounds Extremity no clubbing, cyanosis or edema Skin no rashes or lesions noted Neuro CN's II-XII intact bilaterally Lab / Micro Data Result Diagrams: 11/11/21 07:06 11/11/21 07:06 Labs: Laboratory Results - last 24 hr 11/11/21 07:06: WBC 8.2, RBC 3.60 L, Hgb 11.5 L, Hct 35.4 L, MCV 98.3, MCH 31.9, MCHC 32.5, RDW Std Deviation 51.1 H, RDW Coeff of Deniz 14.2, Plt Count 241, MPV 10.6, Immature Gran % (Auto) 0.600, Neut % (Auto) 88.7 H, Lymph % (Auto) 5.6 L, [place] % (Auto) 5.0, Eos % (Auto) 0.0, Baso % (Auto) 0.1, Absolute Neuts (auto) 7.3, Absolute Lymphs (auto) 0.46 L, Nucleated RBC % 0, Differential Comment COMMENT 11/11/21 07:06: Sodium 142, Potassium 3.9, Chloride 110 H, Carbon Dioxide 28.0, Anion Gap 4 L, BUN 18, Creatinine 0.56, Estim Creat Clear Calc 98.69, Est GFR (MDRD) Af Amer 139, Est GFR (MDRD) Non-Af 115, BUN/Creatinine Ratio 32.0 H, Glucose 112 H, Calcium 8.4 L, Total Bilirubin 0.50, Direct Bilirubin 0.16, AST 29, ALT 18, Alkaline Phosphatase 53, Total Protein 5.7 L, Albumin 2.3 L, Globulin 3.4 11/11/21 07:06: C-React Prot Ext Range 67.20 H 11/11/21 07:06: B-Natriuretic Peptide 206.4 H 11/11/21 13:01: D-Dimer Quant (PE/DVT) 1.03 H* 11/11/21 13:01: Procalcitonin 0.17 H Micro: Microbiology 11/08/21 18:10 Blood Culture (Wb) - Left Hand Blood Culture - Preliminary No growth in 48 hours. 11/08/21 18:20 Blood Culture (Wb) - Left Hand Blood Culture - Preliminary No growth in 48 hours.
--- NOTE | 2021-11-11 23:43 | CPS ---
Patient was transitioned to AVAPS for continued low tidal volumes observed on traditional BiPAP settings. Increasing IPAP and PS without improvement. Patient responding well to AVAPS with improved tidal volumes in sleep.
[2021-11-12] VITALS (11 sets, daily range): BP systolic 92–117; BP diastolic 58–71; PULSE 44–63; RESP 8–30; TEMP 36.6–36.7; O2SAT 92–96
--- NOTE | 2021-11-12 05:54 | CPS ---
Patient taken off BiPAP this morning for nausea and placed on Airvo
[2021-11-12] MEDS: HYDROcodone Bitartrate/Apap 5/325 Tablet PO ×3 (06:15→21:53)
[2021-11-12] MEDS: Ondansetron 4 MG/2 ML Vial IV (06:15)
[2021-11-12] MEDS: 0.9% Saline Lock 10 ML Syringe IV ×2 (06:15→21:58)
[2021-11-12 06:55] LABS: Absolute Lymphocyte Count 0.68 X10^3/uL (0.83-4.51); Basophil# 0.02 X10^3/uL; Basophil% 0.2 % (0-1); Hemoglobin 11.2 g/dL (12.0-15.0); Lymphocyte # 0.68 X10^3/ul (0.83-4.51); Lymphocyte % 6.7 % (19-41); Mean Corpuscular Hgb 31.2 pg (27.0-32.0); Mean Corpuscular Volume 97.5 fL (81-99); Mean Platelet Vol. 10.7 fl (6.2-12.0); Monocyte# 0.42 X10^3/uL; Monocyte% 4.1 % (0-10); NRBC Flagged by Analyzer 0 % (0-5); Neutrophil # 8.98 X10^3/uL (2.7-7.7); Neutrophil % 88.4 % (47-70); Platelet Count 278 K/mm3 (150-450); RBC Distribution Width CV 13.9 % (11.6-14.6); RBC Distribution Width SD 50.3 fl (35.1-43.9); Red Blood Count 3.59 M/mm3 (4.2-5.4); White Blood Count 10.2 K/mm3 (4.4-11.0)
[2021-11-12 07:17] LABS: AST(SGOT) 32 U/L (15-37); Alanine Aminotransfer ALT/SGPT 20 U/L (13-56); Albumin, Serum 2.2 g/dL (3.2-5.0); Alkaline Phosphatase 60 U/L (45-117); Anion Gap 7 (5-15); BUN 21 mg/dL (7-18); BUN/Creat Ratio 47.8 RATIO (10-20); Bilirubin, Direct 0.18 mg/dL (0.00-0.30); Calcium,Total 8.2 mg/dL (8.5-10.1); Chloride 109 mmol/L (98-107); Creatinine, Serum 0.44 mg/dL (0.55-1.02); EST Glomerular Filtration Rate 153 mL/min (>60); Est Glom Filt Rate - Afr Amer 186 mL/min (>60); Estimated Creatinine Clearance 125.61 ml/min; Globulin 3.5 g/dL (2.2-4.2); Glucose 94 mg/dL (74-106); Potassium 3.4 mmol/L (3.5-5.1); Protein, Total 5.7 g/dL (6.4-8.2); Sodium Level 141 mmol/L (136-145)
--- NOTE | 2021-11-12 07:34 | PN.HOSP_ITS ---
Subjective Subjective Patient seen with increasing oxygen requirement. Currently on Airvo with 60 L/min flow oxygen as well as FiO2 of 92%. Patient was seen in consultation by both ID and pulmonary medicine. Patient was deemed not to be a candidate for baricitinib in view of her immunosuppressive state Objective Data Objective Data Vital Signs: Vital Signs Temp Pulse Resp BP Pulse Ox 98.1 F 52 L 30 H 117/71 94 11/12/21 02:35 11/12/21 03:10 11/12/21 03:10 11/12/21 02:35 11/12/21 03:10 Oxygen Flow Rate (L/min) 15 Oxygen Delivery Method Non-Rebreather @ 15L/min Weight: 81.647 kg Body Mass Index (BMI) 28.1 Intake & Output: Intake and Output for Last 24 Hours 11/10/21 11/11/21 11/12/21 23:59 23:59 23:59 Intake Total 1150 / 1390 480 / 840 730 / 730 Output Total 350 / 350 Balance 1150 / 1390 130 / 490 730 / 730 Lab / Micro Data Result Diagrams: 11/12/21 06:40 11/12/21 06:40 Labs: Laboratory Results - last 24 hr 11/11/21 07:06: WBC 8.2, RBC 3.60 L, Hgb 11.5 L, Hct 35.4 L, MCV 98.3, MCH 31.9, MCHC 32.5, RDW Std Deviation 51.1 H, RDW Coeff of Deniz 14.2, Plt Count 241, MPV 10.6, Immature Gran % (Auto) 0.600, Neut % (Auto) 88.7 H, Lymph % (Auto) 5.6 L, [place] % (Auto) 5.0, Eos % (Auto) 0.0, Baso % (Auto) 0.1, Absolute Neuts (auto) 7.3, Absolute Lymphs (auto) 0.46 L, Nucleated RBC % 0, Differential Comment COMMENT 11/11/21 07:06: Sodium 142, Potassium 3.9, Chloride 110 H, Carbon Dioxide 28.0, Anion Gap 4 L, BUN 18, Creatinine 0.56, Estim Creat Clear Calc 98.69, Est GFR (MDRD) Af Amer 139, Est GFR (MDRD) Non-Af 115, BUN/Creatinine Ratio 32.0 H, Gluc ose 112 H, Calcium 8.4 L, Total Bilirubin 0.50, Direct Bilirubin 0.16, AST 29, ALT 18, Alkaline Phosphatase 53, Total Protein 5.7 L, Albumin 2.3 L, Globulin 3.4 11/11/21 07:06: C-React Prot Ext Range 67.20 H 11/11/21 07:06: B-Natriuretic Peptide 206.4 H 11/11/21 13:01: D-Dimer Quant (PE/DVT) 1.03 H* 11/11/21 13:01: Procalcitonin 0.17 H 11/12/21 06:40: WBC 10.2, RBC 3.59 L, Hgb 11.2 L, Hct 35.0 L, MCV 97.5, MCH 31.2, MCHC 32.0, RDW Std Deviation 50.3 H, RDW Coeff of Deniz 13.9, Plt Count 278, MPV 10.7, Immature Gran % (Auto) 0.600, Neut % (Auto) 88.4 H, Lymph % (Auto) 6.7 L, [place] % (Auto) 4.1, Eos % (Auto) 0.0, Baso % (Auto) 0.2, Absolute Neuts (auto) 9.0 H, Absolute Lymphs (auto) 0.68 L, Nucleated RBC % 0 11/12/21 06:40: Sodium 141, Potassium 3.4 L, Chloride 109 H, Carbon Dioxide 25.0, Anion Gap 7, BUN 21 H, Creatinine 0.44 L, Estim Creat Clear Calc 125.61, Est GFR (MDRD) Af Amer 186, Est GFR (MDRD) Non-Af 153, BUN/Creatinine Ratio 47.8 H, Glucose 94, Calcium 8.2 L, Total Bilirubin 0.60, Direct Bilirubin 0.18, AST 32, ALT 20, Alkaline Phosphatase 60, Total Protein 5.7 L, Albumin 2.2 L, Globulin 3.5 Micro: Microbiology 11/08/21 18:10 Blood Culture (Wb) - Left Hand Blood Culture - Preliminary No growth in 48 hours. 11/08/21 18:20 Blood Culture (Wb) - Left Hand Blood Culture - Preliminary No growth in 48 hours. 11/08/21 16:16 Nasal Secretion SARS-CoV-2 Antigen (Rapid) - Final SARS-CoV-2 (COVID 19) Physical Exam Narrative GENERAL: cooperative HEENT: Atraumatic; EYES; Anicteric, Normal Conjunctiva NECK; supple, normal thyroid, RESPIRATORY: Diminished to auscultation CARDIOVASCULAR: Regular S1 S2, GI: soft, normoactive bowel sounds, : No Renal angle tenderness; EXTREMITIES: No edema, no clubbing, MUSCULOSKELETAL: no muscle waisting NEURO: Awake; no lateralizing signs. SKIN: No Rash PSYCH; Flat affect Assessment & Plan Assessment/Plan (1) Acute respiratory failure with hypoxia: (2) Pneumonia due to 2019-nCoV: PLAN: Patient is a 66-year-old lady unvaccinated against COVID-19 presented with shortness of breath. Patient was found to be hypoxic in the ER with oxygen saturation of 75% 1. Acute hypoxic respiratory failure ?Secondary to SARS-CoV-2 pneumonia. Patient has been admitted to regular nursing floor placed on supplemental oxygen. Patient was started on Decadron and remdesivir. -11/10/2021; Patient remains on high flow oxygen?13 L/min flow saturating 94 -11/11/2021; Patient seen oxygen demand increasing currently on 40 L flow per minute via nasal cannula. Decision was therefore made to consult both pulmonary medicine as well as infectious disease ?11/12/2021; Patient seen with increasing oxygen requirement. Currently on Airvo with 60 L/min flow oxygen as well as FiO2 of 92%. Patient was seen in consultation by both ID and pulmonary medicine. Patient was deemed not to be a candidate for baricitinib in view of her immunosuppressive state 2. Hypokalemia ?Corrected protocol 3. Hypothyroidism - Patient is on levothyroxine home dose continued 4. Rheumatoid arthritis ?Patient is on methotrexate 7 sulfasalazine as well as pain meds 6. Depression with anxiety ?Patient is on Lexapro 7. DVT prophylaxis ?Lovenox Charges/Coding Visit Charges Inpatient E&M: 52100 Subs Hosp L3
--- NOTE | 2021-11-12 07:58 | PN.CC_ITS ---
Assessment & Plan Assessment/Plan (1) Acute respiratory failure with hypoxia: (2) Pneumonia due to 2019-nCoV: PLAN: RECOMMENDATIONS: 1. Wean oxygen saturations at or above 90%. 2. Continue remdesivir as ordered. Continue to monitor liver and renal function. 3. Continue Decadron to complete 10 days of therapy. 4. Continue prophylactic Lovenox for now. 5. Awake prone positioning was encouraged. 6. Diuretics as needed to maintain euvolemic state. IMPRESSIONS: 1. Acute hypoxemic respiratory failure secondary to COVID-19 pneumonia The patient was admitted to the hospital on November 08 after having tested positive for COVID-19. Symptom onset was sometime around November 03. Her oxygenation status has worsened since her admission. She is currently requiring heated high flow oxygen. Plan to continue to wean FiO2 for saturations greater than 90%. Continue to hold baseline immunosuppressive regimen. She is not a candidate for baricitinib. Continue prophylactic Lovenox for now along with 10 days of Decadron therapy. 2. Hypothyroidism/rheumatoid arthritis/depression Complicates care, management, recovery and prognosis. Hold home immunosuppressive agents. Continue Synthroid. This note was generated with [employer] dictation software. It may contain incorrect words, spelling, and punctuation that were not noted in checking the note before signing. Subjective Subjective The patient was seen and examined at the bedside this morning. Events from the last 24 hours have been reviewed. The patient is currently afebrile, hemodynamically stable and maintaining appropriate oxygen saturations on Airvo heated high flow with an FiO2 of 92%. The patient is currently documented to be overall net +3.3 L for the hospitalization. D-dimer yesterday was noted to be 1.03. Potassium is low this morning at 3.4. Creatinine is within normal limits. The patient remains on remdesivir, prophylactic Lovenox and Decadron. Objective Data Objective Data The patient's most recent lab work, culture data and imaging studies have all been personally reviewed. Rapid coronavirus antigen testing was positive on November 08. Vital Signs: Vital Signs Temp Pulse Resp BP Pulse Ox 98.1 F 44 L 28 H 117/71 95 11/12/21 02:35 11/12/21 07:47 11/12/21 07:47 11/12/21 02:35 11/12/21 07:47 Oxygen Flow Rate (L/min) 15 Oxygen Delivery Method Non-Rebreather @ 15L/min Weight: 81.647 kg Body Mass Index (BMI) 28.1 Intake & Output: Intake and Output for Last 24 Hours 11/10/21 11/11/21 11/12/21 23:59 23:59 23:59 Intake Total 1150 / 1390 480 / 840 730 / 730 Output Total 350 / 350 Balance 1150 / 1390 130 / 490 730 / 730 Lab / Micro Data Attestation: I reviewed the patient's lab results. Result Diagrams: 11/12/21 06:40 11/12/21 06:40 Labs: Laboratory Results - last 24 hr 11/11/21 07:06: Differential Comment COMMENT 11/11/21 07:06: Sodium 142, Potassium 3.9, Chloride 110 H, Carbon Dioxide 28.0, Anion Gap 4 L, BUN 18, Creatinine 0.56, Estim Creat Clear Calc 98.69, Est GFR (MDRD) Af Amer 139, Est GFR (MDRD) Non-Af 115, BUN/Creatinine Ratio 32.0 H, Glucose 112 H, Calcium 8.4 L, Total Bilirubin 0.50, Direct Bilirubin 0.16, AST 29, ALT 18, Alkaline Phosphatase 53, Total Protein 5.7 L, Albumin 2.3 L, Globulin 3.4 11/11/21 07:06: C-React Prot Ext Range 67.20 H 11/11/21 07:06: B-Natriuretic Peptide 206.4 H 11/11/21 13:01: D-Dimer Quant (PE/DVT) 1.03 H* 11/11/21 13:01: Procalcitonin 0.17 H 11/12/21 06:40: WBC 10.2, RBC 3.59 L, Hgb 11.2 L, Hct 35.0 L, MCV 97.5, MCH 31.2, MCHC 32.0, RDW Std Deviation 50.3 H, RDW Coeff of Deniz 13.9, Plt Count 278, MPV 10.7, Immature Gran % (Auto) 0.600, Neut % (Auto) 88.4 H, Lymph % (Auto) 6.7 L, [place] % (Auto) 4.1, Eos % (Auto) 0.0, Baso % (Auto) 0.2, Absolute Neuts (auto) 9.0 H, Absolute Lymphs (auto) 0.68 L, Nucleated RBC % 0 11/12/21 06:40: Sodium 141, Potassium 3.4 L, Chloride 109 H, Carbon Dioxide 25.0, Anion Gap 7, BUN 21 H, Creatinine 0.44 L, Estim Creat Clear Calc 125.61, Est GFR (MDRD) Af Amer 186, Est GFR (MDRD) Non-Af 153, BUN/Creatinine Ratio 47.8 H, Glucose 94, Calcium 8.2 L, Total Bilirubin 0.60, Direct Bilirubin 0.18, AST 32, ALT 20, Alkaline Phosphatase 60, Total Protein 5.7 L, Albumin 2.2 L, Globulin 3.5 Micro: Microbiology 11/08/21 18:10 Blood Culture (Wb) - Left Hand Blood Culture - Preliminary No growth in 48 hours. 11/08/21 18:20 Blood Culture (Wb) - Left Hand Blood Culture - Preliminary No growth in 48 hours. 11/08/21 16:16 Nasal Secretion SARS-CoV-2 Antigen (Rapid) - Final SARS-CoV-2 (COVID 19) Physical Exam Const alert Constitutional Narrative: Currently on heated high flow oxygen. General Appearance: cooperative Nutritional Appearance: overweight HEENT normocephalic, head/scalp atraumatic and moist oral mucous membranes Eyes PERRL and EOMs intact bilaterally Neck supple General: trachea midline Chest inspection of chest normal Resp Effort and Inspection: tachypneic Auscultation: diminished lung sounds Cardio regular rate and regular rhythm GI normal to inspection, nondistended, normoactive bowel sounds Extremity no clubbing, cyanosis or edema Skin no rashes or lesions noted Neuro CN's II-XII intact bilaterally, moves all extremities and no focal motor deficits Psych cooperative and affect normal Charges/Coding Visit Charges Inpatient E&M: 30910 Subs Hosp L3
[2021-11-12] MEDS: guaiFENesin 1,200 MG Tablet 1200 MG PO ×2 (08:50→21:53)
[2021-11-12] MEDS: Enoxaparin 30 MG/0.3 ML Syringe SC ×2 (08:50→21:53)
[2021-11-12] MEDS: dexAMETHasone 2 MG TABLET 6 MG PO (08:50)
[2021-11-12] MEDS: Escitalopram Oxalate 10 MG Tablet PO (08:50)
[2021-11-12] MEDS: Levothyroxine 50 MCG Tablet PO (08:51)
[2021-11-12] MEDS: Folic Acid 1 MG Tablet PO (08:51)
[2021-11-12] MEDS: Gabapentin 100 MG Capsule PO ×3 (08:51→16:30)
[2021-11-12] MEDS: Furosemide 40 MG/4 ML Vial IV (08:51)
[2021-11-12] MEDS: Dicyclomine 10 MG Capsule PO ×3 (08:54→16:30)
[2021-11-12] MEDS: Acetaminophen 325 MG Tablet 650 MG PO (08:54)
[2021-11-13] VITALS (14 sets, daily range): BP systolic 109–133; BP diastolic 52–68; PULSE 41–70; RESP 12–28; TEMP 36.2–37.4; O2SAT 90–96
[2021-11-13] MEDS: HYDROcodone Bitartrate/Apap 5/325 Tablet PO ×3 (06:07→21:16)
--- NOTE | 2021-11-13 07:33 | PN.HOSP_ITS ---
Subjective Subjective Patient seen clinical condition still remains critical. Patient has been alternating between Airvo 60 L with FiO2 of 93% as well as BiPAP AVAPS with FiO2 of 65%. Objective Data Objective Data Vital Signs: Vital Signs Temp Pulse Resp BP Pulse Ox 97.7 F L 41 L 21 H 116/63 93 11/13/21 02:00 11/13/21 06:41 11/13/21 06:41 11/13/21 02:00 11/13/21 06:41 Oxygen Flow Rate (L/min) 65 Oxygen Delivery Method Bi-pap Weight: 81.647 kg Body Mass Index (BMI) 28.1 Intake & Output: Intake and Output for Last 24 Hours 11/11/21 11/12/21 11/13/21 23:59 23:59 23:59 Intake Total 480 / 840 730 / 830 590 / 590 Output Total 350 / 350 1700 / 1700 Balance 130 / 490 -970 / -870 590 / 590 Lab / Micro Data Result Diagrams: 11/13/21 08:25 11/13/21 08:25 Micro: Microbiology 11/11/21 18:00 Sputum, Expectorated/Coughed Gram Stain - Final 11/11/21 18:00 Sputum, Expectorated/Coughed Respiratory Culture - Prelimina ry Appears to be normal respiratory sofia. Further studies to follow. 11/08/21 18:10 Blood Culture (Wb) - Left Hand Blood Culture - Preliminary No growth in 48 hours. 11/08/21 18:20 Blood Culture (Wb) - Left Hand Blood Culture - Preliminary No growth in 48 hours. 11/08/21 16:16 Nasal Secretion SARS-CoV-2 Antigen (Rapid) - Final SARS-CoV-2 (COVID 19) Physical Exam Narrative GENERAL: cooperative HEENT: Atraumatic; EYES; Anicteric, Normal Conjunctiva NECK; supple, normal thyroid, RESPIRATORY: Diminished to auscultation CARDIOVASCULAR: Regular S1 S2, GI: soft, normoactive bowel sounds, : No Renal angle tenderness; EXTREMITIES: No edema, no clubbing, MUSCULOSKELETAL: no muscle waisting NEURO: Awake; no lateralizing signs. SKIN: No Rash PSYCH; Flat affect Assessment & Plan Assessment/Plan (1) Acute respiratory failure with hypoxia: (2) Pneumonia due to 2019-nCoV: PLAN: Patient is a 66-year-old lady unvaccinated against COVID-19 presented with shortness of breath. Patient was found to be hypoxic in the ER with oxygen saturation of 75% 1. Acute hypoxic respiratory failure ?Secondary to SARS-CoV-2 pneumonia. Patient has been admitted to regular nurs ing floor placed on supplemental oxygen. Patient was started on Decadron and remdesivir. -11/10/2021; Patient remains on high flow oxygen?13 L/min flow saturating 94 -11/11/2021; Patient seen oxygen demand increasing currently on 40 L flow per minute via nasal cannula. Decision was therefore made to consult both pulmonary medicine as well as infectious disease ?11/12/2021; Patient seen with increasing oxygen requirement. Currently on Airvo with 60 L/min flow oxygen as well as FiO2 of 92%. Patient was seen in consultation by both ID and pulmonary medicine. Patient was deemed not to be a candidate for baricitinib in view of her immunosuppressive state 2. Hypokalemia ?Corrected protocol 3. Hypothyroidism - Patient is on levothyroxine home dose continued 4. Rheumatoid arthritis ?Patient is on methotrexate 7 sulfasalazine as well as pain meds -Methotrexate held in view of patient Covid diagnosis 6. Depression with anxiety ?Patient is on Lexapro 7. DVT prophylaxis ?Lovenox Charges/Coding Visit Charges Inpatient E&M: 44662 Subs Hosp L3
[2021-11-13 08:54] LABS: Absolute Lymphocyte Count 0.75 X10^3/uL (0.83-4.51); Absolute Neutrophil Count 12.4 X10^3/uL (2.0-7.7); Basophil# 0.03 X10^3/uL; Basophil% 0.2 % (0-1); Hematocrit 36.5 % (37-47); Hemoglobin 11.7 g/dL (12.0-15.0); Lymphocyte # 0.75 X10^3/ul (0.83-4.51); Lymphocyte % 5.4 % (19-41); Mean Corp Hgb Conc 32.1 g/dL (32-36); Mean Corpuscular Hgb 31.5 pg (27.0-32.0); Mean Corpuscular Volume 98.1 fL (81-99); Mean Platelet Vol. 10.7 fl (6.2-12.0); Monocyte# 0.48 X10^3/uL; Monocyte% 3.5 % (0-10); NRBC Flagged by Analyzer 0 % (0-5); Neutrophil # 12.44 X10^3/uL (2.7-7.7); Neutrophil % 89.8 % (47-70); Platelet Count 332 K/mm3 (150-450); RBC Distribution Width CV 13.9 % (11.6-14.6); RBC Distribution Width SD 49.6 fl (35.1-43.9); Red Blood Count 3.72 M/mm3 (4.2-5.4); White Blood Count 13.9 K/mm3 (4.4-11.0)
[2021-11-13 09:23] LABS: AST(SGOT) 24 U/L (15-37); Alanine Aminotransfer ALT/SGPT 20 U/L (13-56); Albumin, Serum 2.3 g/dL (3.2-5.0); Alkaline Phosphatase 65 U/L (45-117); Anion Gap 6 (5-15); BUN 26 mg/dL (7-18); BUN/Creat Ratio 51.9 RATIO (10-20); Bilirubin, Direct 0.27 mg/dL (0.00-0.30); Calcium,Total 8.4 mg/dL (8.5-10.1); Chloride 107 mmol/L (98-107); EST Glomerular Filtration Rate 132 mL/min (>60); Est Glom Filt Rate - Afr Amer 159 mL/min (>60); Estimated Creatinine Clearance 110.54 ml/min; Globulin 3.5 g/dL (2.2-4.2); Glucose 89 mg/dL (74-106); Potassium 3.4 mmol/L (3.5-5.1); Protein, Total 5.8 g/dL (6.4-8.2); Sodium Level 141 mmol/L (136-145)
[2021-11-13] MEDS: guaiFENesin 1,200 MG Tablet 1200 MG PO ×2 (09:30→21:16)
[2021-11-13] MEDS: dexAMETHasone 2 MG TABLET 6 MG PO (09:30)
[2021-11-13] MEDS: Enoxaparin 30 MG/0.3 ML Syringe SC ×2 (09:30→21:16)
[2021-11-13] MEDS: Levothyroxine 50 MCG Tablet PO (09:30)
[2021-11-13] MEDS: Gabapentin 100 MG Capsule PO ×3 (09:31→16:52)
[2021-11-13] MEDS: Folic Acid 1 MG Tablet PO (09:31)
[2021-11-13] MEDS: Escitalopram Oxalate 10 MG Tablet PO (09:31)
[2021-11-13] MEDS: Dicyclomine 10 MG Capsule PO ×3 (09:31→16:51)
--- NOTE | 2021-11-13 10:51 | PN.CC_ITS ---
Assessment & Plan Assessment/Plan (1) Acute respiratory failure with hypoxia: (2) Pneumonia due to 2019-nCoV: PLAN: RECOMMENDATIONS: 1. Continue to wean FiO2 for saturations greater than 90%. 2. Continue Decadron to complete 10 days of therapy. 3. Continue prophylactic Lovenox for now. 4. Awake prone positioning was encouraged. 5. Diuretics as needed to maintain euvolemic state. IMPRESSIONS: 1. Acute hypoxemic respiratory failure secondary to COVID-19 pneumonia The patient was admitted to the hospital on November 08 after having tested positive for COVID-19. Symptom onset was sometime around November 03. Her oxygenation status has worsened since her admission. Plan to continue to wean FiO2 for saturations greater than 90%. The patient has completed her treatment course of remdesivir. Continue to hold baseline immunosuppressive regimen. She is not a candidate for baricitinib. Continue prophylactic Lovenox for now along with 10 days of Decadron therapy. Continue diuretic therapy intermittently to maintain euvolemic state. 2. Hypothyroidism/rheumatoid arthritis/depression Complicates care, management, recovery and prognosis. Hold home immunosuppressive agents. Continue Synthroid. This note was generated with [employer] dictation software. It may contain incorrect words, spelling, and punctuation that were not noted in checking the note before signing. Subjective Subjective The patient was seen and examined at the bedside this morning. Events from the last 24 hours have been reviewed. The patient is currently afebrile, hemodynamically stable and maintaining appropriate oxygen saturations on AVAPS with an FiO2 requirement of 60%. The patient is currently documented to be overall net +2.2 L for the hospitalization. Creatinine is within normal limits. The patient has completed her treatment course of remdesivir and remains on prophylactic Lovenox and Decadron. Objective Data Objective Data The patient's most recent lab work, culture data and imaging studies have all been personally reviewed. Rapid coronavirus antigen testing was positive on November 08. Vital Signs: Vital Signs Temp Pulse Resp BP Pulse Ox 98.0 F 64 24 H 110/66 96 11/13/21 09:26 11/13/21 09:26 11/13/21 09:26 11/13/21 09:26 11/13/21 09:26 Oxygen Flow Rate (L/min) 65 Oxygen Delivery Method Bi-pap Weight: 81.647 kg Body Mass Index (BMI) 28.1 Intake & Output: Intake and Output for Last 24 Hours 11/11/21 11/12/21 11/13/21 23:59 23:59 23:59 Intake Total 480 / 840 730 / 830 590 / 590 Output Total 350 / 350 1700 / 1700 Balance 130 / 490 -970 / -870 590 / 590 Lab / Micro Data Attestation: I reviewed the patient's lab results. Result Diagrams: 11/13/21 08:25 11/13/21 08:25 Labs: Laboratory Results - last 24 hr 11/13/21 08:25: WBC 13.9 H, RBC 3.72 L, Hgb 11.7 L, Hct 36.5 L, MCV 98.1, MCH 31.5, MCHC 32.1, RDW Std Deviation 49.6 H, RDW Coeff of Deniz 13.9, Plt Count 332, MPV 10.7, Immature Gran % (Auto) 1.100 H, Neut % (Auto) 89.8 H, Lymph % (Auto) 5.4 L, [place] % (Auto) 3.5, Eos % (Auto) 0.0, Baso % (Auto) 0.2, Absolute Neuts (auto) 12.4 H, Absolute Lymphs (auto) 0.75 L, Nucleated RBC % 0 11/13/21 08:25: Sodium 141, Potassium 3.4 L, Chloride 107, Carbon Dioxide 28.0, Anion Gap 6, BUN 26 H, Creatinine 0.50 L, Estim Creat Clear Calc 110.54, Est GFR (MDRD) Af Amer 159, Est GFR (MDRD) Non-Af 132, BUN/Creatinine Ratio 51.9 H, Glucose 89, Calcium 8.4 L, Total Bilirubin 0.70, Direct Bilirubin 0.27, AST 24, ALT 20, Alkaline Phosphatase 65, Total Protein 5.8 L, Albumin 2.3 L, Globulin 3.5 Micro: Microbiology 11/11/21 18:00 Sputum, Expectorated/Coughed Gram Stain - Final 11/11/21 18:00 Sputum, Expectorated/Coughed Respiratory Culture - Preliminary Appears to be normal respiratory sofia. Further studies to follow. 11/08/21 18:10 Blood Culture (Wb) - Left Hand Blood Culture - Preliminary No growth in 48 hours. 11/08/21 18:20 Blood Culture (Wb) - Left Hand Blood Culture - Preliminary No growth in 48 hours. 11/08/21 16:16 Nasal Secretion SARS-CoV-2 Antigen (Rapid) - Final SARS-CoV-2 (COVID 19) Physical Exam Const alert General Appearance: cooperative and on BiPAP Nutritional Appearance: overweight HEENT normocephalic, head/scalp atraumatic and moist oral mucous membranes Eyes PERRL and EOMs intact bilaterally Neck supple General: trachea midline Chest inspection of chest normal Resp normal respiratory effort Effort and Inspection: tachypneic Auscultation: diminished lung sounds Cardio regular rate and regular rhythm GI normal to inspection, nondistended, normoactive bowel sounds Extremity no clubbing, cyanosis or edema Skin no rashes or lesions noted Neuro CN's II-XII intact bilaterally, moves all extremities and no focal motor deficits Psych cooperative and affect normal Charges/Coding Visit Charges Inpatient E&M: 47542 Subs Hosp L3
[2021-11-13] MEDS: 0.9% Saline Lock 10 ML Syringe IV (12:01)
[2021-11-13] MEDS: Furosemide 40 MG/4 ML Vial IV (12:01)
--- NOTE | 2021-11-13 14:06 | CPS ---
patient given break from AVAPS to eat
[2021-11-13] MEDS: Potassium Chloride Oral Tablet 20 MEQ 40 MEQ PO (16:51)
[2021-11-13] MEDS: Potassium Chloride Oral Tablet 20 MEQ PO (16:52)
[2021-11-14] VITALS (13 sets, daily range): BP systolic 96–123; BP diastolic 61–71; PULSE 52–77; RESP 18–28; TEMP 36.5–37.5; O2SAT 91–94
[2021-11-14] MEDS: HYDROcodone Bitartrate/Apap 5/325 Tablet PO ×3 (06:23→22:59)
[2021-11-14 07:32] LABS: Absolute Lymphocyte Count 0.79 X10^3/uL (0.83-4.51); Absolute Neutrophil Count 12.2 X10^3/uL (2.0-7.7); Basophil# 0.04 X10^3/uL; Basophil% 0.3 % (0-1); Eosinophil# 0.01 X10^3/uL; Eosinophils% 0.1 % (0-5); Hematocrit 36.7 % (37-47); Hemoglobin 11.9 g/dL (12.0-15.0); Lymphocyte # 0.79 X10^3/ul (0.83-4.51); Lymphocyte % 5.8 % (19-41); Mean Corp Hgb Conc 32.4 g/dL (32-36); Mean Corpuscular Hgb 31.8 pg (27.0-32.0); Mean Corpuscular Volume 98.1 fL (81-99); Mean Platelet Vol. 10.9 fl (6.2-12.0); Monocyte# 0.41 X10^3/uL; NRBC Flagged by Analyzer 0 % (0-5); Neutrophil % 88.8 % (47-70); Platelet Count 367 K/mm3 (150-450); RBC Distribution Width CV 13.6 % (11.6-14.6); RBC Distribution Width SD 48.4 fl (35.1-43.9); Red Blood Count 3.74 M/mm3 (4.2-5.4); White Blood Count 13.7 K/mm3 (4.4-11.0)
--- NOTE | 2021-11-14 07:38 | PCM.PN.HOSP ---
Subjective Subjective Seen still remains on high flow oxygen currently on Airvo with FiO2 of 94% while 60% liters per minute flow saturating in the low 90s. Objective Data Objective Data Vital Signs: Vital Signs Temp Pulse Resp BP Pulse Ox 97.7 F L 74 20 H 123/70 H 91 11/14/21 02:44 11/14/21 03:58 11/14/21 02:44 11/14/21 02:44 11/14/21 03:58 Oxygen Flow Rate (L/min) 60 Oxygen Delivery Method Non-Rebreather @ 15L/min Weight: 81.647 kg Body Mass Index (BMI) 28.1 Intake & Output: Intake and Output for Last 24 Hours 11/12/21 11/13/21 11/14/21 23:59 23:59 23:59 Intake Total 730 / 830 890 / 890 Output Total 1700 / 1700 Balance -970 / -870 890 / 890 Lab / Micro Data Result Diagrams: 11/14/21 06:28 11/14/21 06:28 Labs: Laboratory Results - last 24 hr 11/13/21 08:25: WBC 13.9 H, RBC 3.72 L, Hgb 11.7 L, Hct 36.5 L, MCV 98.1, MCH 31.5, MCHC 32.1, RDW Std Deviation 49.6 H, RDW Coeff of Deniz 13.9, Plt Count 332, MPV 10.7, Immature Gran % (Auto) 1.100 H, Neut % (Auto) 89.8 H, Lymph % (Auto) 5.4 L, [place] % (Auto) 3.5, Eos % (Auto) 0.0, Baso % (Auto) 0.2, Absolute Neuts (auto) 12.4 H, Absolute Lymphs (auto) 0.75 L, Nucleated RBC % 0 11/13/21 08:25: Sodium 141, Potassium 3.4 L, Chloride 107, Carbon Dioxide 28.0, Anion Gap 6, BUN 26 H, Creatinine 0.50 L, Estim Creat Clear Calc 110.54, Est GFR (MDRD) Af Amer 159, Est GFR (MDRD) Non-Af 132, BUN/Creatinine Ratio 51.9 H, Glucose 89, Calcium 8.4 L, Total Bilirubin 0.70, Direct Bilirubin 0.27, AST 24, ALT 20, Alkaline Phosphatase 65, Total Protein 5.8 L, Albumin 2.3 L, Globulin 3.5 11/14/21 06:28: WBC 13.7 H, RBC 3.74 L, Hgb 11.9 L, Hct 36.7 L, MCV 98.1, MCH 31.8, MCHC 32.4, RDW Std Deviation 48.4 H, RDW Coeff of Deniz 13.6, Plt Count 367, MPV 10.9, Immature Gran % (Auto) 2.000 H, Neut % (Auto) 88.8 H, Lymph % (Auto) 5.8 L, [place] % (Auto) 3.0, Eos % (Auto) 0.1, Baso % (Auto) 0.3, Absolute Neuts (auto) 12.2 H, Absolute Lymphs (auto) 0.79 L, Nucleated RBC % 0 Micro: Microbiology 11/08/21 18:10 Blood Culture (Wb) - Left Hand Blood Culture - Final No growth in 5 days. 11/08/21 18:20 Blood Culture (Wb) - Left Hand Blood Culture - Final No growth in 5 days. 11/11/21 18:00 Sputum, Expectorated/Coughed Gram Stain - Final 11/11/21 18:00 Sputum, Expectorated/Coughed Respiratory Culture - Preliminary Appears to be normal respiratory sofia. Further studies to follow. 11/08/21 16:16 Nasal Secretion SARS-CoV-2 Antigen (Rapid) - Final SARS-CoV-2 (COVID 19) Physical Exam Narrative GENERAL: cooperative HEENT: Atraumatic; EYES; Anicteric, Normal Conjunctiva NECK; supple, normal thyroid, RESPIRATORY: Diminished to auscultation CARDIOVASCULAR: Regular S1 S2, GI: soft, normoactive bowel sounds, : No Renal angle tenderness; EXTREMITIES: No edema, no clubbing, MUSCULOSKELETAL: no muscle waisting NEURO: Awake; no lateralizing signs. SKIN: No Rash PSYCH; Flat affect Assessment & Plan Assessment/Plan (1) Acute respiratory failure with hypoxia: (2) Pneumonia due to 2019-nCoV: PLAN: Patient is a 66-year-old lady unvaccinated against COVID-19 presented with shortness of breath. Patient was found to be hypoxic in the ER with oxygen saturation of 75% 1. Acute hypoxic respiratory failure ?Secondary to SARS-CoV-2 pneumonia. Patient has been admitted to regular nursing floor placed on supplemental oxygen. Patient was started on Decadron and remdesivir. -11/10/2021; Patient remains on high flow oxygen?13 L/min flow saturating 94 -11/11/2021; Patient seen oxygen demand increasing currently on 40 L flow per minute via nasal cannula. Decision was therefore made to consult both pulmonary medicine as well as infectious disease ?11/12/2021; Patient seen with increasing oxygen requirement. Currently on Airvo with 60 L/min flow oxygen as well as FiO2 of 92%. Patient was seen in consultation by both ID and pulmonary medicine. Patient was deemed not to be a candidate for baricitinib in view of her immunosuppressive state ?11/14/2021;Seen still remains on high flow oxygen currently on Airvo with FiO2 of 94% while 60% liters per minute flow saturating in the low 90s. 2. Hypokalemia ?Corrected protocol 3. Hypothyroidism - Patient is on levothyroxine home dose continued 4. Rheumatoid arthritis ?Patient is on methotrexate 7 sulfasalazine as well as pain meds -Methotrexate held in view of patient Covid diagnosis 6. Depression with anxiety ?Patient is on Lexapro 7. DVT prophylaxis ?Lovenox Charges/Coding Visit Charges Inpatient E&M: 41243 Subs Hosp L3
[2021-11-14 07:47] LABS: ALB/GLOB Ratio 0.6 RATIO (0.9-2.4); AST(SGOT) 18 U/L (15-37); Alanine Aminotransfer ALT/SGPT 17 U/L (13-56); Albumin, Serum 2.4 g/dL (3.2-5.0); Alkaline Phosphatase 68 U/L (45-117); Anion Gap 8 (5-15); BUN 25 mg/dL (7-18); BUN/Creat Ratio 45.9 RATIO (10-20); Calcium,Total 8.7 mg/dL (8.5-10.1); Chloride 102 mmol/L (98-107); Creatinine, Serum 0.54 mg/dL (0.55-1.02); EST Glomerular Filtration Rate 120 mL/min (>60); Est Glom Filt Rate - Afr Amer 145 mL/min (>60); Estimated Creatinine Clearance 102.35 ml/min; Globulin 3.7 g/dL (2.2-4.2); Glucose 100 mg/dL (74-106); Magnesium 2.3 mg/dL (1.6-2.6); Potassium 4.1 mmol/L (3.5-5.1); Protein, Total 6.1 g/dL (6.4-8.2); Sodium Level 140 mmol/L (136-145)
[2021-11-14] MEDS: Folic Acid 1 MG Tablet PO (08:31)
[2021-11-14] MEDS: Levothyroxine 50 MCG Tablet PO (08:31)
[2021-11-14] MEDS: dexAMETHasone 2 MG TABLET 6 MG PO (08:31)
[2021-11-14] MEDS: Gabapentin 100 MG Capsule PO ×3 (08:31→18:41)
[2021-11-14] MEDS: Escitalopram Oxalate 10 MG Tablet PO (08:31)
[2021-11-14] MEDS: guaiFENesin 1,200 MG Tablet 1200 MG PO ×2 (08:31→21:01)
[2021-11-14] MEDS: Enoxaparin 30 MG/0.3 ML Syringe SC ×2 (08:31→21:01)
[2021-11-14] MEDS: Dicyclomine 10 MG Capsule PO ×3 (08:32→18:41)
[2021-11-14] MEDS: Potassium Chloride Oral Tablet 20 MEQ PO ×2 (08:32→18:41)
[2021-11-14] MEDS: Furosemide 100 MG/10 ML Vial 60 MG IV (16:12)
[2021-11-14] MEDS: 0.9% Saline Lock 10 ML Syringe IV (16:12)
[2021-11-14] MEDS: Acetaminophen 325 MG Tablet 650 MG PO (21:04)
--- NOTE | 2021-11-14 23:19 | CPS ---
PT REFUSING BIPAP TONIGHT
[2021-11-15] VITALS (15 sets, daily range): BP systolic 106–124; BP diastolic 57–76; PULSE 49–67; RESP 18–30; TEMP 36.5–37.4; O2SAT 89–96
[2021-11-15] MEDS: HYDROcodone Bitartrate/Apap 5/325 Tablet PO ×3 (06:50→22:26)
--- NOTE | 2021-11-15 07:17 | PCM.PN.HOSP ---
Subjective Subjective Patient seen still remains on high flow oxygen via Airvo currently with FiO2 of 75% with flow of 60 L/min flow. Objective Data Objective Data Vital Signs: Vital Signs Temp Pulse Resp BP Pulse Ox 99.4 F H 52 L 28 H 112/74 93 11/15/21 05:16 11/15/21 06:47 11/15/21 06:47 11/15/21 05:16 11/15/21 06:48 Oxygen Flow Rate (L/min) 60 Oxygen Delivery Method Non-Rebreather @ 15L/min Weight: 81.647 kg Body Mass Index (BMI) 28.1 Intake & Output: Intake and Output for Last 24 Hours 11/13/21 11/14/21 11/15/21 23:59 23:59 23:59 Intake Total 890 / 890 920 / 920 Output Total 700 / 700 Balance 890 / 890 220 / 220 Lab / Micro Data Result Diagrams: 11/15/21 06:58 11/15/21 06:58 Labs: Laboratory Results - last 24 hr 11/14/21 06:28: WBC 13.7 H, RBC 3.74 L, Hgb 11.9 L, Hct 36.7 L, MCV 98.1, MCH 31.8, MCHC 32.4, RDW Std Deviation 48.4 H, RDW Coeff of Deniz 13.6, Plt Count 367, MPV 10.9, Immature Gran % (Auto) 2.000 H, Neut % (Auto) 88.8 H, Lymph % (Auto) 5.8 L, [place] % (Auto) 3.0, Eos % (Auto) 0.1, Baso % (Auto) 0.3, Absolute Neuts (auto) 12.2 H, Absolute Lymphs (auto) 0.79 L, Nucleated RBC % 0 11/14/21 06:28: Sodium 140, Potassium 4.1, Chloride 102, Carbon Dioxide 30.0, Anion Gap 8, BUN 25 H, Creatinine 0.54 L, Estim Creat Clear Calc 102.35, Est GFR (MDRD) Af Amer 145, Est GFR (MDRD) Non-Af 120, BUN/Creatinine Ratio 45.9 H, Glucose 100, Calcium 8.7, Magnesium 2.3, Total Bilirubin 1.00, AST 18, ALT 17, Alkaline Phosphatase 68, Total Protein 6.1 L, Albumin 2.4 L, Globulin 3.7, Albumin/Globulin Ratio 0.6 L Micro: Microbiology 11/11/21 18:00 Sputum, Expectorated/Coughed Gram Stain - Final 11/11/21 18:00 Sputum, Expectorated/Coughed Respiratory Culture - Final 11/08/21 18:10 Blood Culture (Wb) - Left Hand Blood Culture - Final No growth in 5 days. 11/08/21 18:20 Blood Culture (Wb) - Left Hand Blood Culture - Final No growth in 5 days. 11/08/21 16:16 Nasal Secretion SARS-CoV-2 Antigen (Rapid) - Final SARS-CoV-2 (COVID 19) Physical Exam Narrative GENERAL: cooperative HEENT: Atraumatic; EYES; Anicteric, Normal Conjunctiva NECK; supple, normal thyroid, RESPIRATORY: Diminished to auscultation CARDIOVASCULAR: Regular S1 S2, GI: soft, normoactive bowel sounds, : No Renal angle tenderness; EXTREMITIES: No edema, no clubbing, MUSCULOSKELETAL: no muscle waisting NEURO: Awake; no lateralizing signs. SKIN: No Rash PSYCH; Flat affect Assessment & Plan Assessment/Plan (1) Acute respiratory failure with hypoxia: (2) Pneumonia due to 2019-nCoV: PLAN: Patient is a 66-year-old lady unvaccinated against COVID-19 presented with shortness of breath. Patient was found to be hypoxic in the ER with oxygen saturation of 75% 1. Acute hypoxic respiratory failure ?Secondary to SARS-CoV-2 pneumonia. Patient has been admitted to regular nursing floor placed on supplemental oxygen. Patient was started on Decadron and remdesivir. -11/10/2021; Patient remains on high flow oxygen?13 L/min flow saturating 94 -11/11/2021; Patient seen oxygen demand increasing currently on 40 L flow per minute via nasal cannula. Decision was therefore made to consult both pulmonary medicine as well as infectious disease ?11/12/2021; Patient seen with increasing oxygen requirement. Currently on Airvo with 60 L/min flow oxygen as well as FiO2 of 92%. Patient was seen in consultation by both ID and pulmonary medicine. Patient was deemed not to be a candidate for baricitinib in view of her immunosuppressive state ?11/14/2021;Seen still remains on high flow oxygen currently on Airvo with FiO2 of 94% while 60% liters per minute flow saturating in the low 90s. -11/15/2021;Patient seen still remains on high flow oxygen via Airvo currently with FiO2 of 75% with flow of 60 L/min f 2. Hypokalemia ?Corrected protocol 3. Hypothyroidism - Patient is on levothyroxine home dose continued 4. Rheumatoid arthritis ?Patient is on methotrexate and sulfasalazine as well as pain meds -Methotrexate held in view of patient's Covid diagnosis 6. Depression with anxiety ?Patient is on Lexapro 7. DVT prophylaxis ?Lovenox Charges/Coding Visit Charges Inpatient E&M: 77052 Subs Hosp L2
[2021-11-15 07:18] LABS: Absolute Lymphocyte Count 0.77 X10^3/uL (0.83-4.51); Absolute Neutrophil Count 12.4 X10^3/uL (2.0-7.7); Basophil# 0.04 X10^3/uL; Basophil% 0.3 % (0-1); Eosinophil# 0.07 X10^3/uL; Eosinophils% 0.5 % (0-5); Hematocrit 37.9 % (37-47); Hemoglobin 12.6 g/dL (12.0-15.0); Lymphocyte # 0.77 X10^3/ul (0.83-4.51); Lymphocyte % 5.5 % (19-41); Mean Corp Hgb Conc 33.2 g/dL (32-36); Mean Corpuscular Hgb 32.3 pg (27.0-32.0); Mean Corpuscular Volume 97.2 fL (81-99); Mean Platelet Vol. 10.7 fl (6.2-12.0); Monocyte% 2.9 % (0-10); NRBC Flagged by Analyzer 0 % (0-5); Neutrophil # 12.43 X10^3/uL (2.7-7.7); Neutrophil % 88.6 % (47-70); Platelet Count 388 K/mm3 (150-450); RBC Distribution Width SD 49.1 fl (35.1-43.9)
[2021-11-15 08:12] LABS: ALB/GLOB Ratio 0.6 RATIO (0.9-2.4); AST(SGOT) 15 U/L (15-37); Alanine Aminotransfer ALT/SGPT 14 U/L (13-56); Albumin, Serum 2.3 g/dL (3.2-5.0); Alkaline Phosphatase 76 U/L (45-117); Anion Gap 5 (5-15); BUN 23 mg/dL (7-18); BUN/Creat Ratio 40.6 RATIO (10-20); Calcium,Total 8.8 mg/dL (8.5-10.1); Chloride 101 mmol/L (98-107); Creatinine, Serum 0.57 mg/dL (0.55-1.02); EST Glomerular Filtration Rate 114 mL/min (>60); Est Glom Filt Rate - Afr Amer 138 mL/min (>60); Estimated Creatinine Clearance 96.96 ml/min; Globulin 4.1 g/dL (2.2-4.2); Glucose 95 mg/dL (74-106); Potassium 3.9 mmol/L (3.5-5.1); Protein, Total 6.4 g/dL (6.4-8.2); Sodium Level 137 mmol/L (136-145)
[2021-11-15] MEDS: Gabapentin 100 MG Capsule PO ×3 (08:26→16:16)
[2021-11-15] MEDS: Potassium Chloride Oral Tablet 20 MEQ PO ×2 (08:26→16:16)
[2021-11-15] MEDS: Dicyclomine 10 MG Capsule PO ×3 (08:26→16:16)
[2021-11-15] MEDS: dexAMETHasone 2 MG TABLET 6 MG PO (08:42)
[2021-11-15] MEDS: Enoxaparin 30 MG/0.3 ML Syringe SC ×2 (08:43→20:07)
[2021-11-15] MEDS: Levothyroxine 50 MCG Tablet PO (08:43)
[2021-11-15] MEDS: Folic Acid 1 MG Tablet PO (08:43)
[2021-11-15] MEDS: Escitalopram Oxalate 10 MG Tablet PO (08:43)
[2021-11-15] MEDS: guaiFENesin 1,200 MG Tablet 1200 MG PO ×2 (08:43→20:07)
--- NOTE | 2021-11-15 09:41 | PCM.PN.INT ---
Assessment & Plan Assessment/Plan (1) Acute respiratory failure with hypoxia: (2) Pneumonia due to 2019-nCoV: PLAN: RECOMMENDATIONS: 1. Continue to wean FiO2 for saturations greater than 90%. 2. Continue Decadron to complete 10 days of therapy. 3. Continue prophylactic Lovenox for now. 4. Awake prone positioning was encouraged. 5. Diuretics as needed to maintain euvolemic state. IMPRESSIONS: 1. Acute hypoxemic respiratory failure secondary to COVID-19 pneumonia The patient was admitted to the hospital on November 08 after having tested positive for COVID-19. Symptom onset was sometime around November 03. Her oxygenation status has worsened since her admission. Plan to continue to wean FiO2 for saturations greater than 90%. The patient has completed her treatment course of remdesivir. Continue to hold baseline immunosuppressive regimen. She is not a candidate for baricitinib. Continue prophylactic Lovenox for now along with 10 days of Decadron therapy. Continue diuretic therapy intermittently to maintain euvolemic state. 2. Hypothyroidism/rheumatoid arthritis/depression Complicates care, management, recovery and prognosis. Hold home immunosuppressive agents. Continue Synthroid. This note was generated with [employer] dictation software. It may contain incorrect words, spelling, and punctuation that were not noted in checking the note before signing. Subjective Subjective The patient was seen and examined at the bedside this morning. Events from the last 24 hours have been reviewed. The patient is currently afebrile, hemodynamically stable and maintaining appropriate oxygen saturations on a combination of heated high flow and a nonrebreather. She refused BiPAP therapy yesterday. The patient is currently documented to be overall net +2.7 L for the hospitalization. Creatinine is within normal limits. The patient has completed her treatment course of remdesivir and remains on prophylactic Lovenox and Decadron. Objective Data Objective Data The patient's most recent lab work, culture data and imaging studies have all been personally reviewed. Rapid coronavirus antigen testing was positive on November 08. Vital Signs: Vital Signs Temp Pulse Resp BP Pulse Ox 99.4 F H 52 L 28 H 112/74 93 11/15/21 05:16 11/15/21 06:47 11/15/21 06:47 11/15/21 05:16 11/15/21 06:48 Oxygen Flow Rate (L/min) 60 Oxygen Delivery Method Non-Rebreather @ 15L/min Weight: 81.647 kg Body Mass Index (BMI) 28.1 Intake & Output: Intake and Output for Last 24 Hours 11/13/21 11/14/21 11/15/21 23:59 23:59 23:59 Intake Total 890 / 890 920 / 920 Output Total 700 / 700 Balance 890 / 890 220 / 220 Lab / Micro Data Result Diagrams: 11/15/21 06:58 11/15/21 06:58 Labs: Laboratory Results - last 24 hr 11/15/21 06:58: WBC 14.0 H, RBC 3.90 L, Hgb 12.6, Hct 37.9, MCV 97.2, MCH 32.3 H, MCHC 33.2, RDW Std Deviation 49.1 H, RDW Coeff of Deniz 14.0, Plt Count 388, MPV 10.7, Immature Gran % (Auto) 2.200 H, Neut % (Auto) 88.6 H, Lymph % (Auto) 5.5 L, [place] % (Auto) 2.9, Eos % (Auto) 0.5, Baso % (Auto) 0.3, Absolute Neuts (auto) 12.4 H, Absolute Lymphs (auto) 0.77 L, Nucleated RBC % 0 11/15/21 06:58: Sodium 137, Potassium 3.9, Chloride 101, Carbon Dioxide 31.0, Anion Gap 5, BUN 23 H, Creatinine 0.57, Estim Creat Clear Calc 96.96, Est GFR (MDRD) Af Amer 138, Est GFR (MDRD) Non-Af 114, BUN/Creatinine Ratio 40.6 H, Glucose 95, Calcium 8.8, Total Bilirubin 1.00, AST 15, ALT 14, Alkaline Phosphatase 76, Total Protein 6.4, Albumin 2.3 L, Globulin 4.1, Albumin/Globulin Ratio 0.6 L Micro: Microbiology 11/11/21 18:00 Sputum, Expectorated/Coughed Gram Stain - Final 11/11/21 18:00 Sputum, Expectorated/Coughed Respiratory Culture - Final 11/08/21 18:10 Blood Culture (Wb) - Left Hand Blood Culture - Final No growth in 5 days. 11/08/21 18:20 Blood Culture (Wb) - Left Hand Blood Culture - Final No growth in 5 days. 11/08/21 16:16 Nasal Secretion SARS-CoV-2 Antigen (Rapid) - Final SARS-CoV-2 (COVID 19) Physical Exam Const alert General Appearance: cooperative Nutritional Appearance: overweight HEENT normocephalic, head/scalp atraumatic and moist oral mucous membranes Eyes PERRL and EOMs intact bilaterally Neck supple General: trachea midline Chest inspection of chest normal Resp normal respiratory effort Effort and Inspection: tachypneic Auscultation: diminished lung sounds Cardio regular rate and regular rhythm GI normal to inspection, nondistended, normoactive bowel sounds Extremity no clubbing, cyanosis or edema Skin no rashes or lesions noted Neuro CN's II-XII intact bilaterally, moves all extremities and no focal motor deficits Psych cooperative and affect normal Charges/Coding Visit Charges Inpatient E&M: 60992 Subs Hosp L2
[2021-11-15] MEDS: Furosemide 100 MG/10 ML Vial 60 MG IV (11:16)
[2021-11-15] MEDS: 0.9% Saline Lock 10 ML Syringe IV (11:17)
[2021-11-16] VITALS (12 sets, daily range): BP systolic 116–153; BP diastolic 66–74; PULSE 48–66; RESP 18–26; TEMP 36.3–36.8; O2SAT 91–96
[2021-11-16] MEDS: HYDROcodone Bitartrate/Apap 5/325 Tablet PO ×3 (06:10→23:17)
[2021-11-16 07:14] LABS: Absolute Lymphocyte Count 0.81 X10^3/uL (0.83-4.51); Absolute Neutrophil Count 11.6 X10^3/uL (2.0-7.7); Basophil# 0.03 X10^3/uL; Basophil% 0.2 % (0-1); Hemoglobin 12.5 g/dL (12.0-15.0); Lymphocyte # 0.81 X10^3/ul (0.83-4.51); Lymphocyte % 5.9 % (19-41); Mean Corp Hgb Conc 33.8 g/dL (32-36); Mean Corpuscular Hgb 32.1 pg (27.0-32.0); Mean Corpuscular Volume 95.1 fL (81-99); Mean Platelet Vol. 10.7 fl (6.2-12.0); Monocyte# 0.82 X10^3/uL; NRBC Flagged by Analyzer 0 % (0-5); Neutrophil # 11.59 X10^3/uL (2.7-7.7); Neutrophil % 84.6 % (47-70); Platelet Count 415 K/mm3 (150-450); RBC Distribution Width CV 13.7 % (11.6-14.6); RBC Distribution Width SD 47.7 fl (35.1-43.9); Red Blood Count 3.89 M/mm3 (4.2-5.4); White Blood Count 13.7 K/mm3 (4.4-11.0)
[2021-11-16 07:43] LABS: ALB/GLOB Ratio 0.5 RATIO (0.9-2.4); AST(SGOT) 15 U/L (15-37); Alanine Aminotransfer ALT/SGPT 16 U/L (13-56); Albumin, Serum 2.3 g/dL (3.2-5.0); Alkaline Phosphatase 79 U/L (45-117); Anion Gap 8 (5-15); BUN 22 mg/dL (7-18); BUN/Creat Ratio 42.9 RATIO (10-20); Chloride 97 mmol/L (98-107); Creatinine, Serum 0.51 mg/dL (0.55-1.02); EST Glomerular Filtration Rate 128 mL/min (>60); Est Glom Filt Rate - Afr Amer 155 mL/min (>60); Estimated Creatinine Clearance 108.37 ml/min; Globulin 4.2 g/dL (2.2-4.2); Glucose 100 mg/dL (74-106); Protein, Total 6.5 g/dL (6.4-8.2); Sodium Level 136 mmol/L (136-145)
[2021-11-16] MEDS: dexAMETHasone 2 MG TABLET 6 MG PO (10:20)
[2021-11-16] MEDS: guaiFENesin 1,200 MG Tablet 1200 MG PO ×2 (10:20→23:17)
[2021-11-16] MEDS: Potassium Chloride Oral Tablet 20 MEQ PO ×2 (10:21→16:09)
[2021-11-16] MEDS: Folic Acid 1 MG Tablet PO (10:21)
[2021-11-16] MEDS: Levothyroxine 50 MCG Tablet PO (10:21)
[2021-11-16] MEDS: Enoxaparin 30 MG/0.3 ML Syringe SC ×2 (10:21→23:17)
[2021-11-16] MEDS: Gabapentin 100 MG Capsule PO ×3 (10:21→16:09)
[2021-11-16] MEDS: Dicyclomine 10 MG Capsule PO ×3 (10:21→16:09)
[2021-11-16] MEDS: Escitalopram Oxalate 10 MG Tablet PO (10:21)
--- NOTE | 2021-11-16 11:13 | PCM.PN.HOSP ---
Subjective Subjective Follow-up acute respiratory failure/acute COVID-19 pneumonia: Patient was seen and examined. She is on AirVo, 60 L 86% FiO2. Denies any new complaints. Objective Data Objective Data Vital Signs: Vital Signs Temp Pulse Resp BP Pulse Ox 97.6 F L 61 18 116/72 92 11/16/21 10:00 11/16/21 10:00 11/16/21 10:00 11/16/21 10:00 11/16/21 10:00 Oxygen Flow Rate (L/min) 60 Oxygen Delivery Method Airvo Weight: 81.647 kg Body Mass Index (BMI) 28.1 Intake & Output: Intake and Output for Last 24 Hours 11/14/21 11/15/21 11/16/21 23:59 23:59 23:59 Intake Total 920 / 920 1100 / 1200 350 / 350 Output Total 700 / 700 800 / 800 Balance 220 / 220 300 / 400 350 / 350 Lab / Micro Data Result Diagrams: 11/16/21 06:44 11/16/21 06:44 Labs: Laboratory Results - last 24 hr 11/16/21 06:44: WBC 13.7 H, RBC 3.89 L, Hgb 12.5, Hct 37.0, MCV 95.1, MCH 32.1 H, MCHC 33.8, RDW Std Deviation 47.7 H, RDW Coeff of Deniz 13.7, Plt Count 415, MPV 10.7, Immature Gran % (Auto) 3.300 H, Neut % (Auto) 84.6 H, Lymph % (Auto) 5.9 L, [place] % (Auto) 6.0, Eos % (Auto) 0.0, Baso % (Auto) 0.2, Absolute Neuts (auto) 11.6 H, Absolute Lymphs (auto) 0.81 L, Nucleated RBC % 0 11/16/21 06:44: Sodium 136, Potassium 4.0, Chloride 97 L, Carbon Dioxide 31.0, Anion Gap 8, BUN 22 H, Creatinine 0.51 L, Estim Creat Clear Calc 108.37, Est GFR (MDRD) Af Amer 155, Est GFR (MDRD) Non-Af 128, BUN/Creatinine Ratio 42.9 H, Glucose 100, Calcium 9.0, Total Bilirubin 0.70, AST 15, ALT 16, Alkaline Phosphatase 79, Total Protein 6.5, Albumin 2.3 L, Globulin 4.2, Albumin/Globulin Ratio 0.5 L Micro: Microbiology 11/11/21 18:00 Sputum, Expectorated/Coughed Gram Stain - Final 11/11/21 18:00 Sputum, Expectorated/Coughed Respiratory Culture - Final 11/08/21 18:10 Blood Culture (Wb) - Left Hand Blood Culture - Final No growth in 5 days. 11/08/21 18:20 Blood Culture (Wb) - Left Hand Blood Culture - Final No growth in 5 days. 11/08/21 16:16 Nasal Secretion SARS-CoV-2 Antigen (Rapid) - Final SARS-CoV-2 (COVID 19) Physical Exam Narrative Physical exam: General: Alert, Oriented x3, Cooperative, on Airvo HEENT: Atraumatic Oral: Moist Mucosa Neck: Supple Lungs: Diminished to auscultation Cardiovascular: HS I+II, regular, no murmurs Abdomen: Bowel Sounds Present, Soft, Non Tender Extremities: No edema Assessment & Plan Assessment/Plan (1) Acute respiratory failure with hypoxia: (2) Pneumonia due to 2019-nCoV: PLAN: 1. Acute hypoxic respiratory failure secondary to acute COVID-19 pneumonia Patient remains on Airvo FiO2 83%, 60 L Continue on dexamethasone Not a candidate for baricitinib 2. Hypokalemia, resolved 3. Rest of patient's chronic medical conditions including depression, hypothyroidism, rheumatoid arthritis remained stable Continue home medication Charges/Coding Visit Charges Inpatient E&M: 93136 Subs Hosp L2
--- NOTE | 2021-11-16 14:35 | PCM.PN.INT ---
Assessment & Plan Assessment/Plan (1) Acute respiratory failure with hypoxia: (2) Pneumonia due to 2019-nCoV: PLAN: RECOMMENDATIONS: 1. Continue to wean FiO2 for saturations greater than 90%. 2. Continue Decadron (11/19/2021) to complete 10 days of therapy. 3. Continue prophylactic Lovenox for now. 4. Awake prone positioning was encouraged. 5. Diuretics as needed to maintain euvolemic state. IMPRESSIONS: 1. Acute hypoxemic respiratory failure secondary to COVID-19 pneumonia The patient was admitted to the hospital on November 08 after having tested positive for COVID-19. Symptom onset was sometime around November 03. Her oxygenation status has worsened since her admission. Plan to continue to wean FiO2 for saturations greater than 90%. The patient has completed her treatment course of remdesivir. Continue to hold baseline immunosuppressive regimen. She is not a candidate for baricitinib. Continue prophylactic Lovenox for now along with 10 days of Decadron therapy. Continue diuretic therapy intermittently to maintain euvolemic state. Likely challenge with diuretics tomorrow 2. Hypothyroidism/rheumatoid arthritis/depression Complicates care, management, recovery and prognosis. Hold home immunosuppressive agents. Continue Synthroid. This note was generated with [employer] dictation software. It may contain incorrect words, spelling, and punctuation that were not noted in checking the note before signing. Subjective Subjective The patient did well overnight. Patient is reporting a cough productive of thick clear to white secretions. No hemoptysis is been reported. Patient overall feels subjectively slightly improved compared to yesterday. Objective Data Objective Data Vital Signs: Vital Signs Temp Pulse Resp BP Pulse Ox 36.4 C L 65 18 116/72 93 11/16/21 10:00 11/16/21 11:17 11/16/21 10:00 11/16/21 10:00 11/16/21 11:17 Oxygen Flow Rate (L/min) 60 Oxygen Delivery Method Airvo Weight: 81.647 kg Body Mass Index (BMI) 28.1 Intake & Output: Intake and Output for Last 24 Hours 11/14/21 11/15/21 11/16/21 23:59 23:59 23:59 Intake Total 920 / 920 1100 / 1200 350 / 350 Output Total 700 / 700 800 / 800 Balance 220 / 220 300 / 400 350 / 350 Lab / Micro Data Result Diagrams: 11/16/21 06:44 11/16/21 06:44 Labs: Laboratory Results - last 24 hr 11/16/21 06:44: WBC 13.7 H, RBC 3.89 L, Hgb 12.5, Hct 37.0, MCV 95.1, MCH 32.1 H, MCHC 33.8, RDW Std Deviation 47.7 H, RDW Coeff of Deniz 13.7, Plt Count 415, MPV 10.7, Immature Gran % (Auto) 3.300 H, Neut % (Auto) 84.6 H, Lymph % (Auto) 5.9 L, [place] % (Auto) 6.0, Eos % (Auto) 0.0, Baso % (Auto) 0.2, Absolute Neuts (auto) 11.6 H, Absolute Lymphs (auto) 0.81 L, Nucleated RBC % 0 11/16/21 06:44: Sodium 136, Potassium 4.0, Chloride 97 L, Carbon Dioxide 31.0, Anion Gap 8, BUN 22 H, Creatinine 0.51 L, Estim Creat Clear Calc 108.37, Est GFR (MDRD) Af Amer 155, Est GFR (MDRD) Non-Af 128, BUN/Creatinine Ratio 42.9 H, Glucose 100, Calcium 9.0, Total Bilirubin 0.70, AST 15, ALT 16, Alkaline Phosphatase 79, Total Protein 6.5, Albumin 2.3 L, Globulin 4.2, Albumin/Globulin Ratio 0.5 L Micro: Microbiology 11/11/21 18:00 Sputum, Expectorated/Coughed Gram Stain - Final 11/11/21 18:00 Sputum, Expectorated/Coughed Respiratory Culture - Final 11/08/21 18:10 Blood Culture (Wb) - Left Hand Blood Culture - Final No growth in 5 days. 11/08/21 18:20 Blood Culture (Wb) - Left Hand Blood Culture - Final No growth in 5 days. 11/08/21 16:16 Nasal Secretion SARS-CoV-2 Antigen (Rapid) - Final SARS-CoV-2 (COVID 19) Physical Exam Const alert Constitutional Narrative: On Airvo General Appearance: cooperative Nutritional Appearance: overweight HEENT normocephalic, head/scalp atraumatic and moist oral mucous membranes Eyes PERRL and EOMs intact bilaterally Neck supple General: trachea midline Chest inspection of chest normal Resp normal respiratory effort Resp Narrative: Dyspnea with minimal exertion Auscultation: diminished lung sounds; Negative for rales, rhonchi or wheezes Cardio regular rate, regular rhythm, S1 normal heart sound, S2 normal heart sound, no murmurs, no rub and no gallops GI normal to inspection, nondistended, normoactive bowel sounds Extremity no clubbing, cyanosis or edema Skin no rashes or lesions noted Neuro CN's II-XII intact bilaterally, moves all extremities and no focal motor deficits Psych cooperative and affect normal Charges/Coding Visit Charges Inpatient E&M: 62093 Subs Hosp L2
[2021-11-17] VITALS (10 sets, daily range): BP systolic 108–139; BP diastolic 60–73; PULSE 53–66; RESP 17–20; TEMP 35.8–36.7; O2SAT 90–96
[2021-11-17] MEDS: HYDROcodone Bitartrate/Apap 5/325 Tablet PO ×3 (06:12→21:55)
[2021-11-17 07:50] LABS: Hematocrit 37.8 % (37-47); Hemoglobin 12.4 g/dL (12.0-15.0); Mean Corp Hgb Conc 32.8 g/dL (32-36); Mean Corpuscular Hgb 31.6 pg (27.0-32.0); Mean Corpuscular Volume 96.4 fL (81-99); Mean Platelet Vol. 10.4 fl (6.2-12.0); POSITIVE COUNT YES; POSITIVE MORPHOLOGY YES; Platelet Count 481 K/mm3 (150-450); RBC Distribution Width CV 13.7 % (11.6-14.6); RBC Distribution Width SD 48.8 fl (35.1-43.9); Red Blood Count 3.92 M/mm3 (4.2-5.4); White Blood Count 12.8 K/mm3 (4.4-11.0)
[2021-11-17 07:53] LABS: Differential Indicated MANUAL DIFF
[2021-11-17 08:19] LABS: Lymphocyte 5 % (19-41); Metamyelocyte 4 % (0-1); Neutrophil-Segmented 91 % (47-70); Platelet Estimate ADEQUATE (ADEQ); Total Cells Counted 100 (MANUAL DIFF)
[2021-11-17 08:20] LABS: Absolute Lymphocyte Count 0.64 X10^3/uL (0.83-4.51); Absolute Neutrophil Count 11.7 X10^3/uL (2.0-7.7); Lymphocyte # 0.64 X10^3/ul (0.83-4.51); Neutrophil # 11.65 X10^3/uL (2.7-7.7); Red Cell Morphology NORM C+C NORMAL (NORM C&C)
[2021-11-17 08:22] LABS: Anion Gap 8 (5-15); BUN 21 mg/dL (7-18); BUN/Creat Ratio 39.4 RATIO (10-20); Chloride 100 mmol/L (98-107); Creatinine, Serum 0.53 mg/dL (0.55-1.02); EST Glomerular Filtration Rate 123 mL/min (>60); Est Glom Filt Rate - Afr Amer 148 mL/min (>60); Estimated Creatinine Clearance 104.28 ml/min; Glucose 92 mg/dL (74-106); Potassium 4.5 mmol/L (3.5-5.1); Sodium Level 137 mmol/L (136-145)
[2021-11-17] MEDS: Potassium Chloride Oral Tablet 20 MEQ PO ×2 (08:52→15:54)
[2021-11-17] MEDS: Dicyclomine 10 MG Capsule PO ×3 (08:52→15:54)
[2021-11-17] MEDS: Levothyroxine 50 MCG Tablet PO (08:52)
[2021-11-17] MEDS: Gabapentin 100 MG Capsule PO ×3 (08:52→15:54)
[2021-11-17] MEDS: Folic Acid 1 MG Tablet PO (08:52)
[2021-11-17] MEDS: Escitalopram Oxalate 10 MG Tablet PO (08:52)
[2021-11-17] MEDS: dexAMETHasone 2 MG TABLET 6 MG PO (08:52)
[2021-11-17] MEDS: guaiFENesin 1,200 MG Tablet 1200 MG PO ×2 (08:53→21:55)
[2021-11-17] MEDS: Enoxaparin 30 MG/0.3 ML Syringe SC ×2 (08:53→21:55)
[2021-11-17] MEDS: 0.9% Saline Lock 10 ML Syringe IV (09:06)
[2021-11-17] MEDS: Furosemide 40 MG/4 ML Vial IV (09:06)
--- NOTE | 2021-11-17 09:49 | PCM.PN.INT ---
Assessment & Plan Assessment/Plan (1) Acute respiratory failure with hypoxia: (2) Pneumonia due to 2019-nCoV: PLAN: RECOMMENDATIONS: 1. Continue to wean FiO2 for saturations greater than 90%. 2. Continue Decadron (11/19/2021) to complete 10 days of therapy. 3. Continue prophylactic Lovenox for now. 4. Awake prone positioning was encouraged. 5. Diuretics as needed to maintain euvolemic state. Challenge today IMPRESSIONS: 1. Acute hypoxemic respiratory failure secondary to COVID-19 pneumonia The patient was admitted to the hospital on November 08 after having tested positive for COVID-19. Symptom onset was sometime around November 03. Her oxygenation status has worsened since her admission. Plan to continue to wean FiO2 for saturations greater than 90%. The patient has completed her treatment course of remdesivir. Continue to hold baseline immunosuppressive regimen. She is not a candidate for baricitinib. Continue prophylactic Lovenox for now along with 10 days of Decadron therapy. Continue diuretic therapy intermittently to maintain euvolemic state. We will challenge with diuretics today. Patient would benefit with BiPAP with sleep to limit the recruitment, but she is not interested in wearing it. 2. Hypothyroidism/rheumatoid arthritis/depression Complicates care, management, recovery and prognosis. Hold home immunosuppressive agents. Continue Synthroid. This note was generated with [employer] dictation software. It may contain incorrect words, spelling, and punctuation that were not noted in checking the note before signing. Subjective Subjective Patient feels subjectively improved compared to yesterday. Patient does have a cough with intermittent production. Patient did have increased FiO2 requirements this morning, but feels subjectively like she has less shortness of breath with activity. No chest pain is reported. Objective Data Objective Data Vital Signs: Vital Signs Temp Pulse Resp BP Pulse Ox 36.7 C 57 L 20 H 108/60 94 11/17/21 08:58 11/17/21 08:58 11/17/21 08:58 11/17/21 08:58 11/17/21 08:58 Oxygen Flow Rate (L/min) 60 Oxygen Delivery Method Airvo Weight: 81.647 kg Body Mass Index (BMI) 28.1 Intake & Output: Intake and Output for Last 24 Hours 11/15/21 11/16/21 11/17/21 23:59 23:59 23:59 Intake Total 1100 / 1200 350 / 590 840 / 840 Output Total 800 / 800 600 / 600 300 / 300 Balance 300 / 400 -250 / -10 540 / 540 Lab / Micro Data Result Diagrams: 11/17/21 07:35 11/17/21 07:35 Labs: Laboratory Results - last 24 hr 11/17/21 07:35: WBC 12.8 H, RBC 3.92 L, Hgb 12.4, Hct 37.8, MCV 96.4, MCH 31.6, MCHC 32.8, RDW Std Deviation 48.8 H, RDW Coeff of Deniz 13.7, Plt Count 481 H, MPV 10.4, Neut % (Auto) Not Reportable, Absolute Neuts (auto) 11.7 H, Absolute Lymphs (auto) 0.64 L, Total Counted 100, Neutrophils % (Manual) 91 H, Lymphocytes % (Manual) 5 L, Metamyelocytes % 4 H, Diff Path Review March, Platelet Estimate ADEQUATE, RBC Morphology NORM C+C 11/17/21 07:35: Sodium 137, Potassium 4.5, Chloride 100, Carbon Dioxide 29.0, Anion Gap 8, BUN 21 H, Creatinine 0.53 L, Estim Creat Clear Calc 104.28, Est GFR (MDRD) Af Amer 148, Est GFR (MDRD) Non-Af 123, BUN/Creatinine Ratio 39.4 H, Glucose 92, Calcium 9.0 Micro: Microbiology 11/11/21 18:00 Sputum, Expectorated/Coughed Gram Stain - Final 11/11/21 18:00 Sputum, Expectorated/Coughed Respiratory Culture - Final 11/08/21 18:10 Blood Culture (Wb) - Left Hand Blood Culture - Final No growth in 5 days. 11/08/21 18:20 Blood Culture (Wb) - Left Hand Blood Culture - Final No growth in 5 days. 11/08/21 16:16 Nasal Secretion SARS-CoV-2 Antigen (Rapid) - Final SARS-CoV-2 (COVID 19) Physical Exam Const alert Constitutional Narrative: On Airvo General Appearance: cooperative Nutritional Appearance: overweight HEENT normocephalic, head/scalp atraumatic and moist oral mucous membranes Eyes PERRL and EOMs intact bilaterally Neck supple General: trachea midline Chest inspection of chest normal Resp normal respiratory effort Resp Narrative: Dyspnea with minimal exertion Auscultation: diminished lung sounds; Negative for rales, rhonchi or wheezes Cardio regular rate, regular rhythm, S1 normal heart sound, S2 normal heart sound, no murmurs, no rub and no gallops GI normal to inspection, nondistended, normoactive bowel sounds Extremity no clubbing, cyanosis or edema Skin no rashes or lesions noted Neuro CN's II-XII intact bilaterally, moves all extremities and no focal motor deficits Psych cooperative and affect normal Charges/Coding Visit Charges Inpatient E&M: 11841 Subs Hosp L3
--- NOTE | 2021-11-17 12:40 | PCM.PN.HOSP ---
Subjective Subjective Follow-up acute respiratory failure/acute COVID-19 pneumonia: Patient was seen and examined. Her oxygen requirements appear to be improving, on AirVo, 60 L 79% FiO2. Denies any new complaints. Objective Data Objective Data Vital Signs: Vital Signs Temp Pulse Resp BP Pulse Ox 98.0 F 57 L 20 H 108/60 94 11/17/21 08:58 11/17/21 08:58 11/17/21 08:58 11/17/21 08:58 11/17/21 08:58 Oxygen Flow Rate (L/min) 60 Oxygen Delivery Method Airvo Weight: 81.647 kg Body Mass Index (BMI) 28.1 Intake & Output: Intake and Output for Last 24 Hours 11/15/21 11/16/21 11/17/21 23:59 23:59 23:59 Intake Total 1100 / 1200 350 / 590 840 / 840 Output Total 800 / 800 600 / 600 300 / 300 Balance 300 / 400 -250 / -10 540 / 540 Lab / Micro Data Result Diagrams: 11/17/21 07:35 11/17/21 07:35 Labs: Laboratory Results - last 24 hr 11/17/21 07:35: WBC 12.8 H, RBC 3.92 L, Hgb 12.4, Hct 37.8, MCV 96.4, MCH 31.6, MCHC 32.8, RDW Std Deviation 48.8 H, RDW Coeff of Deniz 13.7, Plt Count 481 H, MPV 10.4, Neut % (Auto) Not Reportable, Absolute Neuts (auto) 11.7 H, Absolute Lymphs (auto) 0.64 L, Total Counted 100, Neutrophils % (Manual) 91 H, Lymphocytes % (Manual) 5 L, Metamyelocytes % 4 H, Diff Path Review May foll, Platelet Estimate ADEQUATE, RBC Morphology NORM C+C 11/17/21 07:35: Sodium 137, Potassium 4.5, Chloride 100, Carbon Dioxide 29.0, Anion Gap 8, BUN 21 H, Creatinine 0.53 L, Estim Creat Clear Calc 104.28, Est GFR (MDRD) Af Amer 148, Est GFR (MDRD) Non-Af 123, BUN/Creatinine Ratio 39.4 H, Glucose 92, Calcium 9.0 Micro: Microbiology 11/11/21 18:00 Sputum, Expectorated/Coughed Gram Stain - Final 11/11/21 18:00 Sputum, Expectorated/Coughed Respiratory Culture - Final 11/08/21 18:10 Blood Culture (Wb) - Left Hand Blood Culture - Final No growth in 5 days. 11/08/21 18:20 Blood Culture (Wb) - Left Hand Blood Culture - Final No growth in 5 days. 11/08/21 16:16 Nasal Secretion SARS-CoV-2 Antigen (Rapid) - Final SARS-CoV-2 (COVID 19) Physical Exam Narrative Physical exam: General: Alert, Oriented x3, Cooperative, on Airvo HEENT: Atraumatic Oral: Moist Mucosa Neck: Supple Lungs: Diminished to auscultation Cardiovascular: HS I+II, regular, no murmurs Abdomen: Bowel Sounds Present, Soft, Non Tender Extremities: No edema Assessment & Plan Assessment/Plan (1) Acute respiratory failure with hypoxia: (2) Pneumonia due to 2019-nCoV: PLAN: 1. Acute hypoxic respiratory failure secondary to acute COVID-19 pneumonia Patient remains on Airvo FiO2 79%, 60 L Continue on dexamethasone Not a candidate for baricitinib 2. Hypokalemia, resolved 3. Rest of patient's chronic medical conditions including depression, hypothyroidism, rheumatoid arthritis remained stable Continue home medication Charges/Coding Visit Charges Inpatient E&M: 75226 Subs Hosp L2
[2021-11-18] VITALS (7 sets, daily range): BP systolic 110–131; BP diastolic 59–78; PULSE 45–60; RESP 18–19; TEMP 36.1–36.8; O2SAT 92–98
[2021-11-18] MEDS: HYDROcodone Bitartrate/Apap 5/325 Tablet PO ×3 (06:02→22:46)
[2021-11-18 06:53] LABS: Anion Gap 7 (5-15); BUN 22 mg/dL (7-18); BUN/Creat Ratio 37.5 RATIO (10-20); Calcium,Total 9.2 mg/dL (8.5-10.1); Chloride 101 mmol/L (98-107); Creatinine, Serum 0.59 mg/dL (0.55-1.02); EST Glomerular Filtration Rate 110 mL/min (>60); Est Glom Filt Rate - Afr Amer 133 mL/min (>60); Estimated Creatinine Clearance 93.68 ml/min; Glucose 92 mg/dL (74-106); Potassium 4.3 mmol/L (3.5-5.1); Sodium Level 135 mmol/L (136-145)
[2021-11-18] MEDS: dexAMETHasone 2 MG TABLET 6 MG PO (08:54)
[2021-11-18] MEDS: Enoxaparin 30 MG/0.3 ML Syringe SC ×2 (08:54→20:12)
[2021-11-18] MEDS: Gabapentin 100 MG Capsule PO ×3 (08:55→16:30)
[2021-11-18] MEDS: Folic Acid 1 MG Tablet PO (08:55)
[2021-11-18] MEDS: guaiFENesin 1,200 MG Tablet 1200 MG PO ×2 (08:55→20:12)
[2021-11-18] MEDS: Levothyroxine 50 MCG Tablet PO (08:55)
[2021-11-18] MEDS: Dicyclomine 10 MG Capsule PO ×3 (08:55→16:29)
[2021-11-18] MEDS: Escitalopram Oxalate 10 MG Tablet PO (08:55)
[2021-11-18] MEDS: Furosemide 40 MG/4 ML Vial IV (08:55)
[2021-11-18] MEDS: Potassium Chloride Oral Tablet 20 MEQ PO ×2 (08:55→16:29)
[2021-11-18] MEDS: 0.9% Saline Lock 10 ML Syringe IV (08:56)
--- NOTE | 2021-11-18 09:36 | PN.HOSP_ITS ---
Subjective Subjective Follow-up acute respiratory failure/acute COVID-19 pneumonia: Patient was seen and examined. She is on AirVo, 60 L 79% FiO2. Denies any new complaints. Objective Data Objective Data Vital Signs: Vital Signs Temp Pulse Resp BP Pulse Ox 97.2 F L 56 L 18 111/70 93 11/18/21 08:52 11/18/21 08:52 11/18/21 08:52 11/18/21 08:52 11/18/21 08:52 Oxygen Flow Rate (L/min) 60 Oxygen Delivery Method Airvo Weight: 81.647 kg Body Mass Index (BMI) 28.1 Intake & Output: Intake and Output for Last 24 Hours 11/16/21 11/17/21 11/18/21 23:59 23:59 23:59 Intake Total 350 / 590 840 / 1320 840 / 840 Output Total 600 / 600 500 / 500 0 / 0 Balance -250 / -10 340 / 820 840 / 840 Lab / Micro Data Result Diagrams: 11/17/21 07:35 11/18/21 05:45 Labs: Laboratory Results - last 24 hr 11/18/21 05:45: Sodium 135 L, Potassium 4.3, Chloride 101, Carbon Dioxide 27.0, Anion Gap 7, BUN 22 H, Creatinine 0.59, Estim Creat Clear Calc 93.68, Est GFR (MDRD) Af Amer 133, Est GFR (MDRD) Non-Af 110, BUN/Creatinine Ratio 37.5 H, Glucose 92, Calcium 9.2 Micro: Microbiology 11/11/21 18:00 Sputum, Expectorated/Coughed Gram Stain - Final 11/11/21 18:00 Sputum, Expectorated/Coughed Respiratory Culture - Final 11/08/21 18:10 Blood Culture (Wb) - Left Hand Blood Culture - Final No growth in 5 days. 11/08/21 18:20 Blood Culture (Wb) - Left Hand Blood Culture - Final No growth in 5 days. 11/08/21 16:16 Nasal Secretion SARS-CoV-2 Antigen (Rapid) - Final SARS-CoV-2 (COVID 19) Physical Exam Narrative Physical exam: General: Alert, Oriented x3, Cooperative, on Airvo HEENT: Atraumatic Oral: Moist Mucosa Neck: Supple Lungs: Diminished to auscultation Cardiovascular: HS I+II, regular, no murmurs Abdomen: Bowel Sounds Present, Soft, Non Tender Extremities: No edema Assessment & Plan Assessment/Plan (1) Acute respiratory failure with hypoxia: (2) Pneumonia due to 2019-nCoV: PLAN: 1. Acute hypoxic respiratory failure secondary to acute COVID-19 pneumonia On Airvo FiO2 79%, 60 L Continue on dexamethasone. Not a candidate for baricitinib Continue to wean off oxygen and encourage use of incentive spirometer 2. Hypokalemia, resolved 3. Rest of patient's chronic medical conditions including depression, hypot hyroidism, rheumatoid arthritis remained stable Continue home medication Charges/Coding Visit Charges Inpatient E&M: 50815 Subs Hosp L2
--- NOTE | 2021-11-18 09:40 | PCM.PN.INT ---
Assessment & Plan Assessment/Plan (1) Acute respiratory failure with hypoxia: (2) Pneumonia due to 2019-nCoV: PLAN: RECOMMENDATIONS: 1. Continue to wean FiO2 for saturations greater than 90%. 2. Continue Decadron (11/19/2021) to complete 10 days of therapy. 3. Continue prophylactic Lovenox for now. 4. Awake prone positioning was encouraged. 5. Diuretics as needed to maintain euvolemic state. Challenge today IMPRESSIONS: 1. Acute hypoxemic respiratory failure secondary to COVID-19 pneumonia The patient was admitted to the hospital on November 08 after having tested positive for COVID-19. Symptom onset was sometime around November 03. Her oxygenation status has worsened since her admission. Plan to continue to wean FiO2 for saturations greater than 90%. The patient has completed her treatment course of remdesivir. Continue to hold baseline immunosuppressive regimen. She is not a candidate for baricitinib. Continue prophylactic Lovenox for now along with 10 days of Decadron therapy. Continue diuretic therapy intermittently to maintain euvolemic state. We will challenge with diuretics today. Patient would benefit with BiPAP with sleep to limit the recruitment, but she is not interested in wearing it. We will continue to suggest out of bed as tolerated to help with pulmonary recruitment. Patient still at risk for needing intubation. 2. Hypothyroidism/rheumatoid arthritis/depression Complicates care, management, recovery and prognosis. Hold home immunosuppressive agents. Continue Synthroid. This note was generated with [employer] dictation software. It may contain incorrect words, spelling, and punctuation that were not noted in checking the note before signing. Subjective Subjective Patient did okay overnight. Patient subjectively feels slightly improved compared to yesterday. Patient is having a cough that is intermittently productive. Patient denies any chest pain, nausea or vomiting. Objective Data Objective Data Vital Signs: Vital Signs Temp Pulse Resp BP Pulse Ox 36.2 C L 56 L 18 111/70 93 11/18/21 08:52 11/18/21 08:52 11/18/21 08:52 11/18/21 08:52 11/18/21 08:52 Oxygen Flow Rate (L/min) 60 Oxygen Delivery Method Airvo Weight: 81.647 kg Body Mass Index (BMI) 28.1 Intake & Output: Intake and Output for Last 24 Hours 11/16/21 11/17/21 11/18/21 23:59 23:59 23:59 Intake Total 350 / 590 840 / 1320 840 / 840 Output Total 600 / 600 500 / 500 0 / 0 Balance -250 / -10 340 / 820 840 / 840 Lab / Micro Data Result Diagrams: 11/17/21 07:35 11/18/21 05:45 Labs: Laboratory Results - last 24 hr 11/18/21 05:45: Sodium 135 L, Potassium 4.3, Chloride 101, Carbon Dioxide 27.0, Anion Gap 7, BUN 22 H, Creatinine 0.59, Estim Creat Clear Calc 93.68, Est GFR (MDRD) Af Amer 133, Est GFR (MDRD) Non-Af 110, BUN/Creatinine Ratio 37.5 H, Glucose 92, Calcium 9.2 Micro: Microbiology 11/11/21 18:00 Sputum, Expectorated/Coughed Gram Stain - Final 11/11/21 18:00 Sputum, Expectorated/Coughed Respiratory Culture - Final 11/08/21 18:10 Blood Culture (Wb) - Left Hand Blood Culture - Final No growth in 5 days. 11/08/21 18:20 Blood Culture (Wb) - Left Hand Blood Culture - Final No growth in 5 days. 11/08/21 16:16 Nasal Secretion SARS-CoV-2 Antigen (Rapid) - Final SARS-CoV-2 (COVID 19) Physical Exam Const alert Constitutional Narrative: On Airvo General Appearance: cooperative Nutritional Appearance: overweight HEENT normocephalic, head/scalp atraumatic and moist oral mucous membranes Eyes PERRL and EOMs intact bilaterally Neck supple General: trachea midline Chest inspection of chest normal Resp normal respiratory effort Resp Narrative: Dyspnea with minimal exertion Auscultation: diminished lung sounds; Negative for rales, rhonchi or wheezes Cardio regular rate, regular rhythm, S1 normal heart sound, S2 normal heart sound, no murmurs, no rub and no gallops GI normal to inspection, nondistended, normoactive bowel sounds Extremity no clubbing, cyanosis or edema Skin no rashes or lesions noted Neuro CN's II-XII intact bilaterally, moves all extremities and no focal motor deficits Psych cooperative and affect normal Charges/Coding Visit Charges Inpatient E&M: 46413 Subs Hosp L3
[2021-11-18 09:49] LABS: Pathologist Review Reviewed
[2021-11-19] VITALS (7 sets, daily range): BP systolic 111–129; BP diastolic 64–77; PULSE 50–69; RESP 18–20; TEMP 36.4–37.2; O2SAT 94–95
[2021-11-19 05:53] LABS: Hematocrit 41.3 % (37-47); Hemoglobin 13.4 g/dL (12.0-15.0); Mean Corp Hgb Conc 32.4 g/dL (32-36); Mean Corpuscular Hgb 31.2 pg (27.0-32.0); Mean Corpuscular Volume 96.3 fL (81-99); Mean Platelet Vol. 11.1 fl (6.2-12.0); POSITIVE COUNT YES; POSITIVE MORPHOLOGY YES; Platelet Count 473 K/mm3 (150-450); RBC Distribution Width CV 13.4 % (11.6-14.6); RBC Distribution Width SD 47.3 fl (35.1-43.9); Red Blood Count 4.29 M/mm3 (4.2-5.4); White Blood Count 15.2 K/mm3 (4.4-11.0)
[2021-11-19] MEDS: HYDROcodone Bitartrate/Apap 5/325 Tablet PO ×3 (05:55→22:27)
[2021-11-19 05:56] LABS: Differential Indicated MANUAL DIFF
[2021-11-19 06:13] LABS: Total Cells Counted 100 (MANUAL DIFF)
[2021-11-19 06:15] LABS: Metamyelocyte 1 % (0-1); Myelocyte 1 % (0-0); Neutrophil-Band 2 % (0-5); Neutrophil-Segmented 79 % (47-70)
[2021-11-19 06:16] LABS: Lymphocyte 11 % (19-41); Monocyte 6 % (0-10); Platelet Estimate SLT INC (ADEQ); Red Cell Morphology NORM C+C NORMAL (NORM C&C)
[2021-11-19 06:17] LABS: Absolute Lymphocyte Count 1.67 X10^3/uL (0.83-4.51); Absolute Neutrophil Count 12.3 X10^3/uL (2.0-7.7); Lymphocyte # 1.67 X10^3/ul (0.83-4.51); Neutrophil # 12.28 X10^3/uL (2.7-7.7)
[2021-11-19 06:24] LABS: ALB/GLOB Ratio 0.6 RATIO (0.9-2.4); AST(SGOT) 17 U/L (15-37); Alanine Aminotransfer ALT/SGPT 34 U/L (13-56); Albumin, Serum 2.6 g/dL (3.2-5.0); Alkaline Phosphatase 93 U/L (45-117); Anion Gap 9 (5-15); BUN 24 mg/dL (7-18); Calcium,Total 9.2 mg/dL (8.5-10.1); Chloride 99 mmol/L (98-107); EST Glomerular Filtration Rate 107 mL/min (>60); Est Glom Filt Rate - Afr Amer 129 mL/min (>60); Estimated Creatinine Clearance 92.11 ml/min; Globulin 4.3 g/dL (2.2-4.2); Glucose 87 mg/dL (74-106); Potassium 4.3 mmol/L (3.5-5.1); Protein, Total 6.9 g/dL (6.4-8.2); Sodium Level 137 mmol/L (136-145)
--- NOTE | 2021-11-19 08:29 | PCM.PN.HOSP ---
Subjective Subjective Follow-up acute respiratory failure/acute COVID-19 pneumonia: Patient was seen and examined. She is currently on AirVo, 60 L 83% FiO2. Denies any new complaints. Objective Data Objective Data Vital Signs: Vital Signs Temp Pulse Resp BP Pulse Ox 97.5 F L 50 L 18 120/64 94 11/19/21 02:50 11/19/21 04:15 11/19/21 04:15 11/19/21 02:50 11/19/21 04:15 Oxygen Flow Rate (L/min) 60 Oxygen Delivery Method Airvo Weight: 81.647 kg Body Mass Index (BMI) 28.1 Intake & Output: Intake and Output for Last 24 Hours 11/17/21 11/18/21 11/19/21 23:59 23:59 23:59 Intake Total 840 / 1320 1080 / 1080 Output Total 500 / 500 0 / 0 Balance 340 / 820 1080 / 1080 Lab / Micro Data Result Diagrams: 11/19/21 05:05 11/19/21 05:05 Labs: Laboratory Results - last 24 hr 11/17/21 07:35: Diff Path Review Reviewed 11/19/21 05:05: WBC 15.2 H, RBC 4.29, Hgb 13.4, Hct 41.3, MCV 96.3, MCH 31.2, MCHC 32.4, RDW Std Deviation 47.3 H, RDW Coeff of Deniz 13.4, Plt Count 473 H, MPV 11.1, Neut % (Auto) Not Reportable, Absolute Neuts (auto) 12.3 H, Absolute Lymphs (auto) 1.67, Total Counted 100, Neutrophils % (Manual) 79 H, Band Neutrophils % 2, Lymphocytes % (Manual) 11 L, Monocytes % (Manual) 6, Metamyelocytes % 1, Myelocytes % 1 H, Diff Path Review May foll, Platelet Estimate SLT INC, RBC Morphology NORM C+C 11/19/21 05:05: Sodium 137, Potassium 4.3, Chloride 99, Carbon Dioxide 29.0, Anion Gap 9, BUN 24 H, Creatinine 0.60, Estim Creat Clear Calc 92.11, Est GFR (MDRD) Af Amer 129, Est GFR (MDRD) Non-Af 107, BUN/Creatinine Ratio 40.0 H, Glucose 87, Calcium 9.2, Total Bilirubin 0.60, AST 17, ALT 34, Alkaline Phosphatase 93, Total Protein 6.9, Albumin 2.6 L, Globulin 4.3 H, Albumin/Globulin Ratio 0.6 L Micro: Microbiology 11/11/21 18:00 Sputum, Expectorated/Coughed Gram Stain - Final 11/11/21 18:00 Sputum, Expectorated/Coughed Respiratory Culture - Final 11/08/21 18:10 Blood Culture (Wb) - Left Hand Blood Culture - Final No growth in 5 days. 11/08/21 18:20 Blood Culture (Wb) - Left Hand Blood Culture - Final No growth in 5 days. 11/08/21 16:16 Nasal Secretion SARS-CoV-2 Antigen (Rapid) - Final SARS-CoV-2 (COVID 19) Physical Exam Narrative Physical exam: General: Alert, Oriented x3, Cooperative, on Airvo HEENT: Atraumatic Oral: Moist Mucosa Neck: Supple Lungs: Diminished to auscultation Cardiovascular: HS I+II, regular, no murmurs Abdomen: Bowel Sounds Present, Soft, Non Tender Extremities: No edema Assessment & Plan Assessment/Plan (1) Acute respiratory failure with hypoxia: (2) Pneumonia due to 2019-nCoV: PLAN: 1. Acute hypoxic respiratory failure secondary to acute COVID-19 pneumonia Oxygenation has been waxing and waning On Airvo FiO2 83%, 60 L Completed dexamethasone today Not a candidate for baricitinib Continue to wean off oxygen and encourage use of incentive spirometer 2. Hypokalemia, resolved 3. Rest of patient's chronic medical conditions including depression, hypothyroidism, rheumatoid arthritis remained stable Continue home medication Charges/Coding Visit Charges Inpatient E&M: 09029 Subs Hosp L2
--- NOTE | 2021-11-19 08:49 | PCM.PN.INT ---
Assessment & Plan Assessment/Plan (1) Acute respiratory failure with hypoxia: (2) Pneumonia due to 2019-nCoV: PLAN: RECOMMENDATIONS: 1. Continue to wean FiO2 for saturations greater than 90%. 2. Continue Decadron (11/19/2021) to complete 10 days of therapy. 3. Continue prophylactic Lovenox for now. 4. Awake prone positioning was encouraged. 5. Diuretics as needed to maintain euvolemic state. Challenge again today 6. Discontinue BiPAP IMPRESSIONS: 1. Acute hypoxemic respiratory failure secondary to COVID-19 pneumonia The patient was admitted to the hospital on November 08 after having tested positive for COVID-19. Symptom onset was sometime around November 03. Her oxygenation status has worsened since her admission. Plan to continue to wean FiO2 for saturations greater than 90%. The patient has completed her treatment course of remdesivir. Continue to hold baseline immunosuppressive regimen. She is not a candidate for baricitinib. Continue prophylactic Lovenox for now along with 10 days of Decadron therapy. Continue diuretic therapy intermittently to maintain euvolemic state. We will challenge with diuretics today. Patient would benefit with BiPAP with sleep to limit the recruitment, but she is not interested in wearing it. We will continue to suggest out of bed as tolerated to help with pulmonary recruitment. We will discontinue BiPAP therapy as patient is refusing and this can be used on other patients 2. Hypothyroidism/rheumatoid arthritis/depression Complicates care, management, recovery and prognosis. Hold home immunosuppressive agents. Continue Synthroid. This note was generated with [employer] dictation software. It may contain incorrect words, spelling, and punctuation that were not noted in checking the note before signing. Subjective Subjective Patient did okay overnight. Patient subjectively feels improved compared to previous. Patient continues to refuse BiPAP overnight. Patient states she has no intentions of wearing that machine. Patient able to tolerate breakfast and reports a better appetite. Objective Data Objective Data Vital Signs: Vital Signs Temp Pulse Resp BP Pulse Ox 36.4 C L 50 L 18 120/64 94 11/19/21 02:50 11/19/21 04:15 11/19/21 04:15 11/19/21 02:50 11/19/21 04:15 Oxygen Flow Rate (L/min) 60 Oxygen Delivery Method Airvo Weight: 81.647 kg Body Mass Index (BMI) 28.1 Intake & Output: Intake and Output for Last 24 Hours 11/17/21 11/18/21 11/19/21 23:59 23:59 23:59 Intake Total 840 / 1320 1080 / 1080 Output Total 500 / 500 0 / 0 Balance 340 / 820 1080 / 1080 Lab / Micro Data Result Diagrams: 11/19/21 05:05 11/19/21 05:05 Labs: Laboratory Results - last 24 hr 11/17/21 07:35: Diff Path Review Reviewed 11/19/21 05:05: WBC 15.2 H, RBC 4.29, Hgb 13.4, Hct 41.3, MCV 96.3, MCH 31.2, MCHC 32.4, RDW Std Deviation 47.3 H, RDW Coeff of Deniz 13.4, Plt Count 473 H, MPV 11.1, Neut % (Auto) Not Reportable, Absolute Neuts (auto) 12.3 H, Absolute Lymphs (auto) 1.67, Total Counted 100, Neutrophils % (Manual) 79 H, Band Neutrophils % 2, Lymphocytes % (Manual) 11 L, Monocytes % (Manual) 6, Metamyelocytes % 1, Myelocytes % 1 H, Diff Path Review May foll, Platelet Estimate SLT INC, RBC Morphology NORM C+C 11/19/21 05:05: Sodium 137, Potassium 4.3, Chloride 99, Carbon Dioxide 29.0, Anion Gap 9, BUN 24 H, Creatinine 0.60, Estim Creat Clear Calc 92.11, Est GFR (MDRD) Af Amer 129, Est GFR (MDRD) Non-Af 107, BUN/Creatinine Ratio 40.0 H, Glucose 87, Calcium 9.2, Total Bilirubin 0.60, AST 17, ALT 34, Alkaline Phosphatase 93, Total Protein 6.9, Albumin 2.6 L, Globulin 4.3 H, Albumin/Globulin Ratio 0.6 L Micro: Microbiology 11/11/21 18:00 Sputum, Expectorated/Coughed Gram Stain - Final 11/11/21 18:00 Sputum, Expectorated/Coughed Respiratory Culture - Final 11/08/21 18:10 Blood Culture (Wb) - Left Hand Blood Culture - Final No growth in 5 days. 11/08/21 18:20 Blood Culture (Wb) - Left Hand Blood Culture - Final No growth in 5 days. 11/08/21 16:16 Nasal Secretion SARS-CoV-2 Antigen (Rapid) - Final SARS-CoV-2 (COVID 19) Physical Exam Const alert Constitutional Narrative: On Airvo General Appearance: cooperative Nutritional Appearance: overweight HEENT normocephalic, head/scalp atraumatic and moist oral mucous membranes Eyes PERRL and EOMs intact bilaterally Neck supple General: trachea midline Chest inspection of chest normal Resp normal respiratory effort Resp Narrative: Improved exertional tolerance Auscultation: diminished lung sounds; Negative for rales, rhonchi or wheezes Cardio regular rate, regular rhythm, S1 normal heart sound, S2 normal heart sound, no murmurs, no rub and no gallops GI normal to inspection, nondistended, normoactive bowel sounds Extremity no clubbing, cyanosis or edema Skin no rashes or lesions noted Neuro CN's II-XII intact bilaterally, moves all extremities and no focal motor deficits Psych cooperative and affect normal Charges/Coding Visit Charges Inpatient E&M: 29240 Subs Hosp L2
[2021-11-19] MEDS: Potassium Chloride Oral Tablet 20 MEQ PO ×2 (09:50→16:17)
[2021-11-19] MEDS: guaiFENesin 1,200 MG Tablet 1200 MG PO ×2 (09:50→22:27)
[2021-11-19] MEDS: Gabapentin 100 MG Capsule PO ×3 (09:50→16:17)
[2021-11-19] MEDS: Furosemide 40 MG/4 ML Vial IV (09:51)
[2021-11-19] MEDS: Levothyroxine 50 MCG Tablet PO (09:51)
[2021-11-19] MEDS: Escitalopram Oxalate 10 MG Tablet PO (09:51)
[2021-11-19] MEDS: Dicyclomine 10 MG Capsule PO ×3 (09:51→16:17)
[2021-11-19] MEDS: Enoxaparin 30 MG/0.3 ML Syringe SC ×2 (09:51→22:27)
[2021-11-19] MEDS: Folic Acid 1 MG Tablet PO (09:51)
[2021-11-19] MEDS: dexAMETHasone 2 MG TABLET 6 MG PO (09:51)
[2021-11-19 14:04] LABS: Pathologist Review Reviewed
[2021-11-20] VITALS (9 sets, daily range): BP systolic 116–143; BP diastolic 77–87; PULSE 48–67; RESP 16–20; TEMP 36–36.9; O2SAT 92–95
[2021-11-20] MEDS: Levothyroxine 50 MCG Tablet PO (06:47)
[2021-11-20] MEDS: HYDROcodone Bitartrate/Apap 5/325 Tablet PO ×3 (06:48→22:32)
[2021-11-20 07:26] LABS: Hematocrit 39.5 % (37-47); Hemoglobin 13.3 g/dL (12.0-15.0); Mean Corp Hgb Conc 33.7 g/dL (32-36); Mean Corpuscular Hgb 32.4 pg (27.0-32.0); Mean Corpuscular Volume 96.1 fL (81-99); Mean Platelet Vol. 10.6 fl (6.2-12.0); POSITIVE COUNT YES; POSITIVE MORPHOLOGY YES; Platelet Count 438 K/mm3 (150-450); RBC Distribution Width CV 13.3 % (11.6-14.6); RBC Distribution Width SD 46.7 fl (35.1-43.9); Red Blood Count 4.11 M/mm3 (4.2-5.4); White Blood Count 18.2 K/mm3 (4.4-11.0)
[2021-11-20 07:27] LABS: Differential Indicated MANUAL DIFF
[2021-11-20 07:54] LABS: ALB/GLOB Ratio 0.6 RATIO (0.9-2.4); AST(SGOT) 17 U/L (15-37); Alanine Aminotransfer ALT/SGPT 34 U/L (13-56); Albumin, Serum 2.6 g/dL (3.2-5.0); Alkaline Phosphatase 83 U/L (45-117); Anion Gap 6 (5-15); BUN 25 mg/dL (7-18); BUN/Creat Ratio 39.4 RATIO (10-20); Calcium,Total 9.1 mg/dL (8.5-10.1); Chloride 99 mmol/L (98-107); Creatinine, Serum 0.63 mg/dL (0.55-1.02); EST Glomerular Filtration Rate 100 mL/min (>60); Est Glom Filt Rate - Afr Amer 121 mL/min (>60); Estimated Creatinine Clearance 87.73 ml/min; Globulin 4.2 g/dL (2.2-4.2); Glucose 87 mg/dL (74-106); Potassium 4.8 mmol/L (3.5-5.1); Protein, Total 6.8 g/dL (6.4-8.2); Sodium Level 135 mmol/L (136-145)
[2021-11-20 08:10] LABS: Neutrophil-Band 2 % (0-5); Neutrophil-Segmented 81 % (47-70); Total Cells Counted 100 (MANUAL DIFF)
[2021-11-20 08:11] LABS: Lymphocyte 12 % (19-41); Metamyelocyte 1 % (0-1); Monocyte 4 % (0-10)
[2021-11-20 08:12] LABS: Platelet Estimate ADEQUATE (ADEQ)
[2021-11-20 08:13] LABS: Red Cell Morphology NORM C+C NORMAL (NORM C&C)
[2021-11-20 08:14] LABS: Absolute Neutrophil Count 15.1 X10^3/uL (2.0-7.7)
[2021-11-20 08:15] LABS: Absolute Lymphocyte Count 2.18 X10^3/uL (0.83-4.51)
[2021-11-20] MEDS: Enoxaparin 30 MG/0.3 ML Syringe SC ×2 (09:14→22:32)
[2021-11-20] MEDS: Escitalopram Oxalate 10 MG Tablet PO (09:15)
[2021-11-20] MEDS: Gabapentin 100 MG Capsule PO ×3 (09:15→16:16)
[2021-11-20] MEDS: Folic Acid 1 MG Tablet PO (09:15)
[2021-11-20] MEDS: guaiFENesin 1,200 MG Tablet 1200 MG PO ×2 (09:15→22:32)
[2021-11-20] MEDS: Potassium Chloride Oral Tablet 20 MEQ PO ×2 (09:16→16:16)
[2021-11-20] MEDS: Dicyclomine 10 MG Capsule PO ×3 (09:16→16:16)
--- NOTE | 2021-11-20 09:46 | PN.HOSP_ITS ---
Subjective Subjective Follow-up acute respiratory failure/acute COVID-19 pneumonia: Patient was seen and examined. She is currently on AirVo, 60 L 50% FiO2. Denies any new complaints. Objective Data Objective Data Vital Signs: Vital Signs Temp Pulse Resp BP Pulse Ox 97.6 F L 48 L 16 123/77 H 95 11/20/21 07:55 11/20/21 07:55 11/20/21 07:55 11/20/21 07:55 11/20/21 05:03 Oxygen Flow Rate (L/min) 60 Oxygen Delivery Method Airvo Weight: 81.647 kg Body Mass Index (BMI) 28.1 Intake & Output: Intake and Output for Last 24 Hours 11/18/21 11/19/21 11/20/21 23:59 23:59 23:59 Intake Total 1080 / 1080 850 / 850 Output Total 0 / 0 Balance 1080 / 1080 850 / 850 Lab / Micro Data Result Diagrams: 11/20/21 07:05 11/20/21 07:05 Labs: Laboratory Results - last 24 hr 11/19/21 05:05: Diff Path Review Reviewed 11/20/21 07:05: WBC 18.2 H, RBC 4.11 L, Hgb 13.3, Hct 39.5, MCV 96.1, MCH 32.4 H , MCHC 33.7, RDW Std Deviation 46.7 H, RDW Coeff of Deniz 13.3, Plt Count 438, MPV 10.6, Neut % (Auto) Not Reportable, Absolute Neuts (auto) 15.1 H, Absolute Lymphs (auto) 2.18, Total Counted 100, Neutrophils % (Manual) 81 H, Band Neutrophils % 2, Lymphocytes % (Manual) 12 L, Monocytes % (Manual) 4, Metamyelocytes % 1, Diff Path Review March, Platelet Estimate ADEQUATE, RBC Morphology NORM C+C 11/20/21 07:05: Sodium 135 L, Potassium 4.8, Chloride 99, Carbon Dioxide 30.0, Anion Gap 6, BUN 25 H, Creatinine 0.63, Estim Creat Clear Calc 87.73, Est GFR (MDRD) Af Amer 121, Est GFR (MDRD) Non-Af 100, BUN/Creatinine Ratio 39.4 H, Glucose 87, Calcium 9.1, Total Bilirubin 0.50, AST 17, ALT 34, Alkaline Phosphatase 83, Total Protein 6.8, Albumin 2.6 L, Globulin 4.2, Albumin/Globulin Ratio 0.6 L Micro: Microbiology 11/11/21 18:00 Sputum, Expectorated/Coughed Gram Stain - Final 11/11/21 18:00 Sputum, Expectorated/Coughed Respiratory Culture - Final 11/08/21 18:10 Blood Culture (Wb) - Left Hand Blood Culture - Final No growth in 5 days. 11/08/21 18:20 Blood Culture (Wb) - Left Hand Blood Culture - Final No growth in 5 days. 11/08/21 16:16 Nasal Secretion SARS-CoV-2 Antigen (Rapid) - Final SARS-CoV-2 (COVID 19) Physical Exam Narrative Physical exam: General: Alert, Oriented x3, Cooperative, on Airvo HEENT: Atraumatic Oral: Moist Mucosa Neck: Supple Lungs: Diminished to auscultation Cardiovascular: HS I+II, regular, no murmurs Abdomen: Bowel Sounds Present, Soft, Non Tender Extremities: No edema Assessment & Plan Assessment/Plan (1) Acute respiratory failure with hypoxia: (2) Pneumonia due to 2019-nCoV: PLAN: 1. Acute hypoxic respiratory failure secondary to acute COVID-19 pneumonia, improving On Airvo FiO2 50%, 60 L Completed dexamethasone today Not a candidate for baricitinib Continue to wean off oxygen and encourage use of incentive spirometer 2. Hypokalemia, resolved 3. Rest of patient's chronic medical conditions including depression, hy pothyroidism, rheumatoid arthritis remained stable Continue home medication Charges/Coding Visit Charges Inpatient E&M: 32006 Subs Hosp L2
--- NOTE | 2021-11-20 12:55 | PN.CC_ITS ---
Assessment & Plan Assessment/Plan (1) Acute respiratory failure with hypoxia: (2) Pneumonia due to 2019-nCoV: PLAN: RECOMMENDATIONS: 1. Continue to wean FiO2 for saturations greater than 90%. 2. Completed Decadron. 3. Continue prophylactic Lovenox for now. 4. Awake prone positioning was encouraged. 5. Diuretics as needed to maintain euvolemic state. Hold on Lasix for today 6. Possibly start walking oximetry tomorrow IMPRESSIONS: 1. Acute hypoxemic respiratory failure secondary to COVID-19 pneumonia The patient was admitted to the hospital on November 08 after having tested positive for COVID-19. Symptom onset was sometime around November 03. Her oxygenation status has worsened since her admission. Plan to continue to wean FiO2 for saturations greater than 90%. The patient has completed her treatment course of remdesivir. Continue to hold baseline immunosuppressive regimen. She is not a candidate for baricitinib. Continue prophylactic Lovenox for now along with 10 days of Decadron therapy. Continue diuretic therapy intermittently to maintain euvolemic state. We will not challenge with diuretics today. 2. Hypothyroidism/rheumatoid arthritis/depression Complicates care, management, recovery and prognosis. Hold home immunosuppressive agents. Continue Synthroid. This note was generated with [employer] dictation software. It may contain incorrect words, spelling, and punctuation that were not noted in checking the note before signing. Subjective Subjective Patient did well overnight. Patient was found with Airvo in her lap saturating 87% on room air. Patient states she feels subjectively improved compared to yesterday. Patient is not reporting any chest pain, nominal pain, nausea or vomiting. Objective Data Objective Data Vital Signs: Vital Signs Temp Pulse Resp BP Pulse Ox 36.0 C L 65 18 127/87 H 94 11/20/21 12:52 11/20/21 12:52 11/20/21 12:52 11/20/21 12:52 11/20/21 12:52 Oxygen Flow Rate (L/min) 6 Oxygen Delivery Method Nasal Cannula Weight: 81.647 kg Body Mass Index (BMI) 28.1 Intake & Output: Intake and Output for Last 24 Hours 11/18/21 11/19/21 11/20/21 23:59 23:59 23:59 Intake Total 1080 / 1080 850 / 850 Output Total 0 / 0 400 / 400 Balance 1080 / 1080 450 / 450 Lab / Micro Data Result Diagrams: 11/20/21 07:05 11/20/21 07:05 Labs: Laboratory Results - last 24 hr 11/19/21 05:05: Diff Path Review Reviewed 11/20/21 07:05: WBC 18.2 H, RBC 4.11 L, Hgb 13.3, Hct 39.5, MCV 96.1, MCH 32.4 H , MCHC 33.7, RDW Std Deviation 46.7 H, RDW Coeff of Deniz 13.3, Plt Count 438, MPV 10.6, Neut % (Auto) Not Reportable, Absolute Neuts (auto) 15.1 H, Absolute Lymphs (auto) 2.18, Total Counted 100, Neutrophils % (Manual) 81 H, Band Neutrophils % 2, Lymphocytes % (Manual) 12 L, Monocytes % (Manual) 4, Metamyelocytes % 1, Diff Path Review March, Platelet Estimate ADEQUATE, RBC Morphology NORM C+C 11/20/21 07:05: Sodium 135 L, Potassium 4.8, Chloride 99, Carbon Dioxide 30.0, Anion Gap 6, BUN 25 H, Creatinine 0.63, Estim Creat Clear Calc 87.73, Est GFR (MDRD) Af Amer 121, Est GFR (MDRD) Non-Af 100, BUN/Creatinine Ratio 39.4 H, Glucose 87, Calcium 9.1, Total Bilirubin 0.50, AST 17, ALT 34, Alkaline Phosphatase 83, Total Protein 6.8, Albumin 2.6 L, Globulin 4.2, Albumin/Globulin Ratio 0.6 L Micro: Microbiology 11/11/21 18:00 Sputum, Expectorated/Coughed Gram Stain - Final 11/11/21 18:00 Sputum, Expectorated/Coughed Respiratory Culture - Final 11/08/21 18:10 Blood Culture (Wb) - Left Hand Blood Culture - Final No growth in 5 days. 11/08/21 18:20 Blood Culture (Wb) - Left Hand Blood Culture - Final No growth in 5 days. 11/08/21 16:16 Nasal Secretion SARS-CoV-2 Antigen (Rapid) - Final SARS-CoV-2 (COVID 19) Physical Exam Const alert Constitutional Narrative: On room air initially, but then 6 L/min. at the bedside General Appearance: cooperative Nutritional Appearance: overweight HEENT normocephalic, head/scalp atraumatic and moist oral mucous membranes Eyes PERRL and EOMs intact bilaterally Neck supple General: trachea midline Chest inspection of chest normal Resp normal respiratory effort Resp Narrative: Improved exertional tolerance Auscultation: diminished lung sounds; Negative for rales, rhonchi or wheezes Cardio regular rate, regular rhythm, S1 normal heart sound, S2 normal heart sound, no murmurs, no rub and no gallops GI normal to inspection, nondistended, normoactive bowel sounds Extremity no clubbing, cyanosis or edema Skin no rashes or lesions noted Neuro CN's II-XII intact bilaterally, moves all extremities and no focal motor deficits Psych cooperative and affect normal Charges/Coding Visit Charges Inpatient E&M: 76700 Subs Hosp L2
[2021-11-21 03:00] VITALS: BP 117/71; PULSE 78; RESP 18; TEMP 36.8; O2SAT 92
[2021-11-21] MEDS: HYDROcodone Bitartrate/Apap 5/325 Tablet PO ×3 (06:29→22:43)
[2021-11-21 07:10] VITALS: O2SAT 93
[2021-11-21 07:40] LABS: Anion Gap 5 (5-15); BUN 19 mg/dL (7-18); BUN/Creat Ratio 27.9 RATIO (10-20); Calcium,Total 8.9 mg/dL (8.5-10.1); Chloride 101 mmol/L (98-107); Creatinine, Serum 0.68 mg/dL (0.55-1.02); EST Glomerular Filtration Rate 92 mL/min (>60); Est Glom Filt Rate - Afr Amer 112 mL/min (>60); Estimated Creatinine Clearance 81.28 ml/min; Glucose 77 mg/dL (74-106); Potassium 4.6 mmol/L (3.5-5.1); Sodium Level 137 mmol/L (136-145)
[2021-11-21 07:59] VITALS: BP 100/63; PULSE 64; RESP 18; TEMP 36.7; O2SAT 93
[2021-11-21] MEDS: Folic Acid 1 MG Tablet PO (08:04)
[2021-11-21] MEDS: guaiFENesin 1,200 MG Tablet 1200 MG PO ×2 (08:04→20:43)
[2021-11-21] MEDS: Escitalopram Oxalate 10 MG Tablet PO (08:04)
[2021-11-21] MEDS: Levothyroxine 50 MCG Tablet PO (08:04)
[2021-11-21] MEDS: Potassium Chloride Oral Tablet 20 MEQ PO ×2 (08:04→15:40)
[2021-11-21] MEDS: Enoxaparin 30 MG/0.3 ML Syringe SC ×2 (08:04→20:43)
[2021-11-21] MEDS: Dicyclomine 10 MG Capsule PO ×3 (08:04→15:41)
[2021-11-21] MEDS: Gabapentin 100 MG Capsule PO ×3 (08:04→15:41)
--- NOTE | 2021-11-21 08:17 | PN.CC_ITS ---
Assessment & Plan Assessment/Plan (1) Acute respiratory failure with hypoxia: (2) Pneumonia due to 2019-nCoV: PLAN: RECOMMENDATIONS: 1. Continue to wean FiO2 for saturations greater than 90%. 2. Completed Decadron. 3. Continue prophylactic Lovenox for now. 4. Awake prone positioning was encouraged. 5. Diuretics as needed to maintain euvolemic state. Challenge today 6. Possibly try walking oximetry if tolerance improves per nursing IMPRESSIONS: 1. Acute hypoxemic respiratory failure secondary to COVID-19 pneumonia The patient was admitted to the hospital on November 08 after having tested positive for COVID-19. Symptom onset was sometime around November 03. Her oxygenation status has worsened since her admission. Plan to continue to wean FiO2 for saturations greater than 90%. The patient has completed her tr eatment course of remdesivir. Continue to hold baseline immunosuppressive regimen. She is not a candidate for baricitinib. Continue prophylactic Lovenox for now along with 10 days of Decadron therapy. Continue diuretic therapy intermittently to maintain euvolemic state. We will challenge with diuretics today. 2. Hypothyroidism/rheumatoid arthritis/depression Complicates care, management, recovery and prognosis. Hold home immunosuppressive agents. Continue Synthroid. This note was generated with [employer] dictation software. It may contain incorrect words, spelling, and punctuation that were not noted in checking the note before signing. Subjective Subjective Patient is doing very well from a respiratory standpoint. Patient has been able to tolerate 6 L nasal cannula throughout the evening. Patient did have a short period of rescue with a Airvo associated with walking to the bathroom. Nursing reports patient desaturates with sitting on the edge of the bed. Objective Data Objective Data Vital Signs: Vital Signs Temp Pulse Resp BP Pulse Ox 36.7 C 64 18 100/63 93 11/21/21 07:59 11/21/21 07:59 11/21/21 07:59 11/21/21 07:59 11/21/21 07:59 Oxygen Flow Rate (L/min) 5 Oxygen Delivery Method High Flow Weight: 81.647 kg Body Mass Index (BMI) 28.1 Intake & Output: Intake and Output for Last 24 Hours 11/19/21 11/20/21 11/21/21 23:59 23:59 23:59 Intake Total 850 / 850 850 / 850 Output Total 400 / 400 450 / 450 Balance 450 / 450 400 / 400 Lab / Micro Data Result Diagrams: 11/20/21 07:05 11/21/21 06:55 Labs: Laboratory Results - last 24 hr 11/21/21 06:55: Sodium 137, Potassium 4.6, Chloride 101, Carbon Dioxide 31.0, Anion Gap 5, BUN 19 H, Creatinine 0.68, Estim Creat Clear Calc 81.28, Est GFR (MDRD) Af Amer 112, Est GFR (MDRD) Non-Af 92, BUN/Creatinine Ratio 27.9 H, Glucose 77, Calcium 8.9 Micro: Microbiology 11/11/21 18:00 Sputum, Expectorated/Coughed Gram Stain - Final 11/11/21 18:00 Sputum, Expectorated/Coughed Respiratory Culture - Final 11/08/21 18:10 Blood Culture (Wb) - Left Hand Blood Culture - Final No growth in 5 days. 11/08/21 18:20 Blood Culture (Wb) - Left Hand Blood Culture - Final No growth in 5 days. 11/08/21 16:16 Nasal Secretion SARS-CoV-2 Antigen (Rapid) - Final SARS-CoV-2 (COVID 19) Physical Exam Const alert Constitutional Narrative: Patient tolerating nasal cannula well General Appearance: cooperative Nutritional Appearance: overweight HEENT normocephalic, head/scalp atraumatic and moist oral mucous membranes HEENT Narrative: Mild irritation on the lateral aspect of the nares Eyes PERRL and EOMs intact bilaterally Neck supple General: trachea midline Chest inspection of chest normal Resp normal respiratory effort Resp Narrative: Improved exertional tolerance Auscultation: diminished lung sounds; Negative for rales, rhonchi or wheezes Cardio regular rate, regular rhythm, S1 normal heart sound, S2 normal heart sound, no murmurs, no rub and no gallops GI normal to inspection, nondistended, normoactive bowel sounds Extremity no clubbing, cyanosis or edema Skin no rashes or lesions noted Neuro CN's II-XII intact bilaterally, moves all extremities and no focal motor deficits Psych cooperative and affect normal Charges/Coding Visit Charges Inpatient E&M: 23170 Subs Hosp L2
--- NOTE | 2021-11-21 09:59 | PCM.PN.HOSP ---
Subjective Subjective Follow-up acute respiratory failure/acute COVID-19 pneumonia: Patient was seen and examined. She is currently on AirVo, 60 L 50% FiO2. Denies any new complaints. Objective Data Objective Data Vital Signs: Vital Signs Temp Pulse Resp BP Pulse Ox 98.1 F 64 18 100/63 93 11/21/21 07:59 11/21/21 07:59 11/21/21 07:59 11/21/21 07:59 11/21/21 07:59 Oxygen Flow Rate (L/min) 5 Oxygen Delivery Method High Flow Weight: 81.647 kg Body Mass Index (BMI) 28.1 Intake & Output: Intake and Output for Last 24 Hours 11/19/21 11/20/21 11/21/21 23:59 23:59 23:59 Intake Total 850 / 850 850 / 850 Output Total 400 / 400 450 / 450 Balance 450 / 450 400 / 400 Lab / Micro Data Result Diagrams: 11/20/21 07:05 11/21/21 06:55 Labs: Laboratory Results - last 24 hr 11/21/21 06:55: Sodium 137, Potassium 4.6, Chloride 101, Carbon Dioxide 31.0, Anion Gap 5, BUN 19 H, Creatinine 0.68, Estim Creat Clear Calc 81.28, Est GFR (MDRD) Af Amer 112, Est GFR (MDRD) Non-Af 92, BUN/Creatinine Ratio 27.9 H, Glucose 77, Calcium 8.9 Micro: Microbiology 11/11/21 18:00 Sputum, Expectorated/Coughed Gram Stain - Final 11/11/21 18:00 Sputum, Expectorated/Coughed Respiratory Culture - Final 11/08/21 18:10 Blood Culture (Wb) - Left Hand Blood Culture - Final No growth in 5 days. 11/08/21 18:20 Blood Culture (Wb) - Left Hand Blood Culture - Final No growth in 5 days. 11/08/21 16:16 Nasal Secretion SARS-CoV-2 Antigen (Rapid) - Final SARS-CoV-2 (COVID 19) Physical Exam Narrative Physical exam: General: Alert, Oriented x3, Cooperative, on Airvo HEENT: Atraumatic Oral: Moist Mucosa Neck: Supple Lungs: Diminished to auscultation Cardiovascular: HS I+II, regular, no murmurs Abdomen: Bowel Sounds Present, Soft, Non Tender Extremities: No edema Assessment & Plan Assessment/Plan (1) Acute respiratory failure with hypoxia: (2) Pneumonia due to 2019-nCoV: PLAN: 1. Acute hypoxic respiratory failure secondary to acute COVID-19 pneumonia, improved On 5L oxygen Completed dexamethasone Not a candidate for baricitinib Continue to wean off oxygen and encourage use of incentive spirometer 2. Hypokalemia, resolved 3. Rest of patient's chronic medical conditions including depression, hypothyroidism, rheumatoid arthritis remained stable Continue home medication Charges/Coding Visit Charges Inpatient E&M: 53703 Subs Hosp L2
[2021-11-21] MEDS: Furosemide 40 MG/4 ML Vial IV (11:12)
[2021-11-21] MEDS: 0.9% Saline Lock 10 ML Syringe IV ×2 (11:12→20:44)
[2021-11-21 14:00] VITALS: BP 102/68; PULSE 82; RESP 20; TEMP 36.7; O2SAT 92
[2021-11-21 18:08] VITALS: O2SAT 94
[2021-11-21 20:39] VITALS: BP 105/68; PULSE 80; RESP 18; TEMP 36.8; O2SAT 95
[2021-11-22 02:26] VITALS: BP 108/61; PULSE 74; RESP 18; TEMP 36.9; O2SAT 94
[2021-11-22 06:34] VITALS: O2SAT 87; O2SAT 91
[2021-11-22] MEDS: HYDROcodone Bitartrate/Apap 5/325 Tablet PO ×3 (06:53→21:35)
[2021-11-22 07:45] LABS: Anion Gap 7 (5-15); BUN 18 mg/dL (7-18); BUN/Creat Ratio 27.7 RATIO (10-20); Calcium,Total 8.9 mg/dL (8.5-10.1); Chloride 98 mmol/L (98-107); Creatinine, Serum 0.65 mg/dL (0.55-1.02); EST Glomerular Filtration Rate 98 mL/min (>60); Est Glom Filt Rate - Afr Amer 118 mL/min (>60); Estimated Creatinine Clearance 85.03 ml/min; Glucose 91 mg/dL (74-106); Potassium 4.2 mmol/L (3.5-5.1); Sodium Level 135 mmol/L (136-145)
--- NOTE | 2021-11-22 07:48 | PN.CC_ITS ---
Assessment & Plan Assessment/Plan (1) Acute respiratory failure with hypoxia: (2) Pneumonia due to 2019-nCoV: PLAN: RECOMMENDATIONS: 1. Continue to wean FiO2 for saturations greater than 90%. 2. Completed Decadron. 3. Continue prophylactic Lovenox for now. 4. Awake prone positioning was encouraged. 5. Diuretics as needed to maintain euvolemic state. Challenge today 6. Continue daily walking oximetry's until able to be discharged 7. Hemodynamically stable on nasal cannula oxygen for greater than 48 hours. Will sign off from a pulmonary perspective IMPRESSIONS: 1. Acute hypoxemic respiratory failure secondary to COVID-19 pneumonia The patient was admitted to the hospital on November 08 after having tested positive for COVID-19. Symptom onset was sometime around November 03. Her oxygenation status has worsened since her admission. Plan to continue to wean FiO2 for saturations greater than 90%. The patient has completed her treatment course of remdesivir. Continue to hold baseline immunosuppressive regimen. She is not a candidate for baricitinib. Continue prophylactic Lovenox for now along with 10 days of Decadron therapy. Continue diuretic therapy intermittently to maintain euvolemic state. We will challenge with diuretics today. Continue with walking oximetry is on a daily basis. Patient can be discharged when she can ambulate on 6 L or less. Patient should follow-up 4 to 6 weeks after discharge with nurse practitioner in our office. 2. Hypothyroidism/rheumatoid arthritis/depression Complicates care, management, recovery and prognosis. Hold home immunosuppressive agents. Continue Synthroid. This note was generated with [employer] dictation software. It may contain incorrect words, spelling, and punctuation that were not noted in checking the note before signing. Subjective Subjective Patient did okay overnight. No acute issues were reported. Patient subjectively feels unchanged compared to previous. Patient is not reporting any chest pain or epistaxis. Objective Data Objective Data Vital Signs: Vital Signs Temp Pulse Resp BP Pulse Ox 36.9 C 74 18 108/61 91 11/22/21 02:26 11/22/21 02:26 11/22/21 02:26 11/22/21 02:11/22/21 06:34 Oxygen Flow Rate (L/min) [ 6 AMBULATING with Oxygen #1] Oxygen Flow Rate (L/min) [At 6 REST with Oxygen] Oxygen Flow Rate (L/min) [At 0 REST on Room Air] Oxygen Flow Rate (L/min) 5 Oxygen Delivery Method High Flow Weight: 81.647 kg Body Mass Index (BMI) 28.1 Intake & Output: Intake and Output for Last 24 Hours 11/20/21 11/21/21 11/22/21 23:59 23:59 23:59 Intake Total 850 / 850 850 / 850 Output Total 400 / 400 450 / 450 Balance 450 / 450 400 / 400 Lab / Micro Data Result Diagrams: 11/20/21 07:05 11/22/21 07:06 Labs: Laboratory Results - last 24 hr 11/22/21 07:06: Sodium 135 L, Potassium 4.2, Chloride 98, Carbon Dioxide 30.0, Anion Gap 7, BUN 18, Creatinine 0.65, Estim Creat Clear Calc 85.03, Est GFR (MDRD) Af Amer 118, Est GFR (MDRD) Non-Af 98, BUN/Creatinine Ratio 27.7 H, Glucose 91, Calcium 8.9 Micro: Microbiology 11/11/21 18:00 Sputum, Expectorated/Coughed Gram Stain - Final 11/11/21 18:00 Sputum, Expectorated/Coughed Respiratory Culture - Final 11/08/21 18:10 Blood Culture (Wb) - Left Hand Blood Culture - Final No growth in 5 days. 11/08/21 18:20 Blood Culture (Wb) - Left Hand Blood Culture - Final No growth in 5 days. 11/08/21 16:16 Nasal Secretion SARS-CoV-2 Antigen (Rapid) - Final SARS-CoV-2 (COVID 19) Physical Exam Const alert Constitutional Narrative: Patient tolerating nasal cannula well General Appearance: cooperative Nutritional Appearance: overweight HEENT normocephalic, head/scalp atraumatic and moist oral mucous membranes HEENT Narrative: Mild irritation on the lateral aspect of the nares Eyes PERRL and EOMs intact bilaterally Neck supple General: trachea midline Chest inspection of chest normal Resp normal respiratory effort Resp Narrative: Improved exertional tolerance Auscultation: diminished lung sounds; Negative for rales, rhonchi or wheezes Cardio regular rate, regular rhythm, S1 normal heart sound, S2 normal heart sound, no murmurs, no rub and no gallops GI normal to inspection, nondistended, normoactive bowel sounds Extremity no clubbing, cyanosis or edema Skin no rashes or lesions noted Neuro CN's II-XII intact bilaterally, moves all extremities and no focal motor deficits Psych cooperative and affect normal Charges/Coding Visit Charges Inpatient E&M: 35608 Subs Hosp L2
[2021-11-22] MEDS: Folic Acid 1 MG Tablet PO (07:51)
[2021-11-22] MEDS: Enoxaparin 30 MG/0.3 ML Syringe SC ×2 (07:52→21:36)
[2021-11-22] MEDS: Potassium Chloride Oral Tablet 20 MEQ PO ×2 (07:52→16:13)
[2021-11-22] MEDS: Levothyroxine 50 MCG Tablet PO (07:52)
[2021-11-22] MEDS: Gabapentin 100 MG Capsule PO ×3 (07:52→16:13)
[2021-11-22] MEDS: guaiFENesin 1,200 MG Tablet 1200 MG PO ×2 (07:52→21:39)
[2021-11-22] MEDS: Dicyclomine 10 MG Capsule PO ×3 (07:53→16:13)
[2021-11-22] MEDS: Escitalopram Oxalate 10 MG Tablet PO (07:53)
[2021-11-22] MEDS: 0.9% Saline Lock 10 ML Syringe IV (07:58)
[2021-11-22] MEDS: Furosemide 40 MG/4 ML Vial IV (07:58)
[2021-11-22 08:02] VITALS: BP 108/69; PULSE 66; RESP 18; TEMP 36.7; O2SAT 95
--- NOTE | 2021-11-22 08:03 | PCM.PN.HOSP ---
Subjective Subjective Follow-up acute respiratory failure/acute COVID-19 pneumonia: Patient was seen and examined. She is on 5 L of oxygen. She had was very dyspneic with exertion and required 6 L of oxygen. Objective Data Objective Data Vital Signs: Vital Signs Temp Pulse Resp BP Pulse Ox 98.1 F 66 18 108/69 95 11/22/21 08:02 11/22/21 08:02 11/22/21 08:02 11/22/21 08:02 11/22/21 08:02 Oxygen Flow Rate (L/min) [ 6 AMBULATING with Oxygen #1] Oxygen Flow Rate (L/min) [At 6 REST with Oxygen] Oxygen Flow Rate (L/min) [At 0 REST on Room Air] Oxygen Flow Rate (L/min) 5 Oxygen Delivery Method Nasal Cannula Weight: 81.647 kg Body Mass Index (BMI) 28.1 Intake & Output: Intake and Output for Last 24 Hours 11/20/21 11/21/21 11/22/21 23:59 23:59 23:59 Intake Total 850 / 850 850 / 850 Output Total 400 / 400 450 / 450 Balance 450 / 450 400 / 400 Lab / Micro Data Result Diagrams: 11/20/21 07:05 11/22/21 07:06 Labs: Laboratory Results - last 24 hr 11/22/21 07:06: Sodium 135 L, Potassium 4.2, Chloride 98, Carbon Dioxide 30.0, Anion Gap 7, BUN 18, Creatinine 0.65, Estim Creat Clear Calc 85.03, Est GFR (MDRD) Af Amer 118, Est GFR (MDRD) Non-Af 98, BUN/Creatinine Ratio 27.7 H, Glucose 91, Calcium 8.9 Micro: Microbiology 11/11/21 18:00 Sputum, Expectorated/Coughed Gram Stain - Final 11/11/21 18:00 Sputum, Expectorated/Coughed Respiratory Culture - Final 11/08/21 18:10 Blood Culture (Wb) - Left Hand Blood Culture - Final No growth in 5 days. 11/08/21 18:20 Blood Culture (Wb) - Left Hand Blood Culture - Final No growth in 5 days. 11/08/21 16:16 Nasal Secretion SARS-CoV-2 Antigen (Rapid) - Final SARS-CoV-2 (COVID 19) Physical Exam Narrative Physical exam: General: Alert, Oriented x3, Cooperative, 5 L of oxygen HEENT: Atraumatic Oral: Moist Mucosa Neck: Supple Lungs: Diminished to auscultation Cardiovascular: HS I+II, regular, no murmurs Abdomen: Bowel Sounds Present, Soft, Non Tender Extremities: No edema Assessment & Plan Assessment/Plan (1) Acute respiratory failure with hypoxia: (2) Pneumonia due to 2019-nCoV: PLAN: Summary: 66-year-old female with past medical history of rheumatoid arthritis, hypothyroidism, colon cancer status post colectomy, s/p chemotherapy, who comes in with progressive shortness of breath and found to have COVID-19 infection. Patient was admitted on 11/08/21. 1. Acute hypoxic respiratory failure secondary to acute COVID-19 pneumonia, improved Now on 5-6L oxygen; was on Airvo for very long time Patient is unvaccinated. She completed dexamethasone and Remdesivir during this hospital stay She was not a candidate for Baracitinib was on Airvo Continue to wean off oxygen and encourage use of incentive spirometer Patient required 6 L of oxygen with exertion and was significantly short of breath. 2. Rest of patient's chronic medical conditions including depression, hypothyroidism, rheumatoid arthritis remained stable Continue home medication Disposition: Possible discharge home with oxygen if requires less than 6 L of oxygen Charges/Coding Visit Charges Inpatient E&M: 69369 Subs Hosp L2
[2021-11-22 14:00] VITALS: BP 105/69; PULSE 90; RESP 20; TEMP 36.7; O2SAT 92
[2021-11-22 14:18] VITALS: O2SAT 93
[2021-11-22 21:31] VITALS: BP 107/73; PULSE 84; RESP 18; TEMP 37.1; O2SAT 90
[2021-11-23] MEDS: HYDROcodone Bitartrate/Apap 5/325 Tablet PO (06:02)
[2021-11-23 06:04] VITALS: BP 98/61; PULSE 89; RESP 18; TEMP 36.6; O2SAT 92
--- NOTE | 2021-11-23 06:09 | NURSING ---
pt on 3l all night. increased to 6l in anticipation of ambulating in room. pt sat at side of bed and spo2 maintained at 87% on 6l.
--- NOTE | 2021-11-23 06:15 | NURSING ---
PT SAT AT SIDE OF BED ON 6L IN ANTICIPATION OF WALKING. SPO2 MAINTAINED @ 88-90%. PT AMBULATED AROUND BED AND BACK AND SPO2 MAINTAINED AT 90-92%. PT REPORTED FEELING SOB. SAT ON SIDE OF BED AND SPO2 DROPPED TO 86-88% FOR APPROX 2M. PT'S SPO2 THEN RETURNED TO 92% AND MAINTAINED. O2 DECREASED BACK TO 3L WHILE PT AT REST.
[2021-11-23 07:49] LABS: Absolute Lymphocyte Count 1.24 X10^3/uL (0.83-4.51); Absolute Neutrophil Count 8.7 X10^3/uL (2.0-7.7); Basophil# 0.07 X10^3/uL; Basophil% 0.6 % (0-1); Eosinophil# 0.03 X10^3/uL; Eosinophils% 0.3 % (0-5); Hematocrit 40.3 % (37-47); Hemoglobin 13.5 g/dL (12.0-15.0); Lymphocyte # 1.24 X10^3/ul (0.83-4.51); Lymphocyte % 10.7 % (19-41); Mean Corp Hgb Conc 33.5 g/dL (32-36); Mean Corpuscular Hgb 32.3 pg (27.0-32.0); Mean Corpuscular Volume 96.4 fL (81-99); Mean Platelet Vol. 10.4 fl (6.2-12.0); Monocyte# 1.06 X10^3/uL; Monocyte% 9.1 % (0-10); NRBC Flagged by Analyzer 0 % (0-5); Neutrophil # 8.71 X10^3/uL (2.7-7.7); Neutrophil % 75.2 % (47-70); Platelet Count 325 K/mm3 (150-450); RBC Distribution Width CV 13.6 % (11.6-14.6); RBC Distribution Width SD 47.8 fl (35.1-43.9); Red Blood Count 4.18 M/mm3 (4.2-5.4); White Blood Count 11.6 K/mm3 (4.4-11.0)
[2021-11-23 08:01] VITALS: O2SAT 92
[2021-11-23 08:14] LABS: ALB/GLOB Ratio 0.5 RATIO (0.9-2.4); AST(SGOT) 16 U/L (15-37); Alanine Aminotransfer ALT/SGPT 22 U/L (13-56); Albumin, Serum 2.4 g/dL (3.2-5.0); Alkaline Phosphatase 82 U/L (45-117); Anion Gap 5 (5-15); BUN 19 mg/dL (7-18); BUN/Creat Ratio 30.7 RATIO (10-20); Calcium,Total 8.9 mg/dL (8.5-10.1); Chloride 100 mmol/L (98-107); Creatinine, Serum 0.62 mg/dL (0.55-1.02); EST Glomerular Filtration Rate 103 mL/min (>60); Est Glom Filt Rate - Afr Amer 125 mL/min (>60); Estimated Creatinine Clearance 89.14 ml/min; Globulin 4.4 g/dL (2.2-4.2); Glucose 97 mg/dL (74-106); Potassium 4.2 mmol/L (3.5-5.1); Protein, Total 6.8 g/dL (6.4-8.2); Sodium Level 133 mmol/L (136-145)
[2021-11-23] MEDS: Levothyroxine 50 MCG Tablet PO (11:09)
[2021-11-23] MEDS: Potassium Chloride Oral Tablet 20 MEQ PO (11:09)
[2021-11-23] MEDS: Gabapentin 100 MG Capsule PO (11:09)
[2021-11-23] MEDS: Dicyclomine 10 MG Capsule PO (11:09)
[2021-11-23] MEDS: Escitalopram Oxalate 10 MG Tablet PO (11:09)
[2021-11-23] MEDS: guaiFENesin 1,200 MG Tablet 1200 MG PO (11:09)
[2021-11-23] MEDS: Folic Acid 1 MG Tablet PO (11:09)
[2021-11-23 11:11] VITALS: BP 116/85; PULSE 84; RESP 16; TEMP 35.6; O2SAT 96
[2021-11-23 11:13] VITALS: O2SAT 84; O2SAT 87; O2SAT 90
--- NOTE | 2021-11-23 12:00 | CASEMGMT ---
JACINTO ZAMUDIO NOTE: Pt being discharged home. Home O2 testing has been completed and pt qualifies for O2 @ 4 l/m w/exertion. Script obtained from Dr Bravo and faxed to [facility]. O2 portable tank to be taken from [facility] supply and provided to pt. TC to [facility] and they were notified. JACINTO ZAMUDIO to room to talk w/pt. Reviewed home O2 set up w/pt and questions answered. Pt denies having any further d/c concerns or needs. Kimberly LANDRUMN RN CM
--- NOTE | 2021-11-23 12:20 | PCM.DC ---
Discharge Instructions Diet Discharge Diet: No restrictions Activity Discharge Activity: Return to Normal Activity Weight Bearing Status: Full weight bearing Follow Up Care Test Results: Test results from this visit will be discussed in further detail at your follow-up appointment, if applicable. Discharge Plan Admission Admit Date/Time: 11/08/21 19:24 Primary Reason for Your Visit: COVID 19 pneumonia Attending Provider: Randall Bravo Primary Care Provider: Suri Tyler Consulting Providers: Wisam Cline ; Errol Trevino ; Grady Van ; Kyung Noonan PATIENT RELATIONS DIRECTOR Instructions Additional Instructions / Restrictions: Use oxygen at 4 L/min via nasal cannula while ambulating, you will not need oxygen at rest Discharge Orders/Prescriptions Prescriptions: Continued dicyclomine 10 mg capsule 10 mg PO TID RF: 0 prednisone 10 mg tablet 10 mg PO PRN PRN (Reason: Pain) RF: 0 sulfasalazine 500 mg tablet 500 mg PO TID RF: 0 methotrexate sodium 2.5 mg tablet 20 mg PO X1 RF: 0 levothyroxine [Euthyrox] 50 mcg tablet 50 mcg PO DAILY RF: 0 folic acid 1 mg tablet 1 mg PO DAILY RF: 0 gabapentin 100 mg capsule 100 mg PO TID RF: 0 escitalopram oxalate 10 mg tablet 10 mg PO DAILY RF: 0 hydrocodone-acetaminophen 5-325 mg tablet 5 - 325 tab PO TID RF: 0 Referrals / Follow Up: Suri Tyler DO [Primary Care Provider] - Disposition Disposition (needs filled in before D/C Order can be placed): Home, Self Care
--- NOTE | 2021-11-23 15:25 | PCM.DC.SUM ---
Providers Date of Admission: 11/08/21 Date of Discharge: 11/23/21 Primary Care Physician: Dr. Suri Tyler, Consultations 11/11/21 10:37 Consult: Infectious Disease Routine Consulting Provider: Wisam Cline Reason for Consult: Covid-19 EMERGENT Consult: No Notified: Yes Date Notified: 11/11/21 Time Notified: 11:09 Method of Notification: Text Consult: Outside Machinist / Pulmonary Medicine Routine Consulting Provider: Pulmonary Medicine [facility] Reason for Consult: Covid-19 EMERGENT Consult: No Notified: Yes Date Notified: 11/11/21 Time Notified: 11:09 Method of Notification: Text Reason For Visit: COVID 19 PNEUMONIA Diagnosis Discharge Diagnosis (1) Acute respiratory failure with hypoxia: Status: Resolved Code(s): J96.01 - Acute respiratory failure with hypoxia (2) Pneumonia due to 2019-nCoV: Status: Resolved Code(s): U07.1 - COVID-19; J12.82 - Pneumonia due to coronavirus disease 2019 (3) Rheumatoid arthritis: Status: Acute Code(s): M06.9 - Rheumatoid arthritis, unspecified Plan: 1. Acute hypoxic respiratory failure secondary to COVID-19 pneumonia #2 chronic depression #3 rheumatoid arthritis Medications at Discharge Home Medications dicyclomine 10 mg PO TID 11/08/21 escitalopram oxalate 10 mg PO DAILY 11/08/21 folic acid 1 mg PO DAILY 11/08/21 gabapentin 100 mg PO TID 11/08/21 hydrocodone-acetaminophen 5 - 325 tab PO TID 11/08/21 levothyroxine [Euthyrox] 50 mcg PO DAILY 11/08/21 methotrexate sodium 20 mg PO X1 11/08/21 prednisone 10 mg PO PRN PRN 11/08/21 sulfasalazine 500 mg PO TID 11/08/21 Hospital Course Operations None Procedures None Summary of Care Provided Minutes Spent on Discharge: 31 Hospital Course: This 66-year-old white female was seen in the emergency room at [facility] complaining of shortness of breath,-the ER included a chest x-ray that showed diffuse patchy bilateral airspace disease, test was positive. Patient required supplemental oxygen, patient was admitted, she underwent treatment with remdesivir and dexamethasone, she was not a candidate for baricitinib. Patient's medical condition improved during her hospitalization and she required oxygen at 4 L via nasal cannula while ambulating at the time of discharge from the hospital, she did not need oxygen at rest. On 11/23/2021, patient was seen and examined: On examination she appeared in good health and spirits, she does not appear to be in any distress. Vital signs as documented. Skin warm and dry and without overt rashes. Neck without JVD, thyroid appears normal, trachea is midline, neck is supple. Lungs clear, normal air movement was noted. Heart exam notable for regular rhythm, normal sounds and absence of murmurs, rubs or gallops. Abdomen unremarkable and without evidence of organomegaly, masses, or abdominal aortic enlargement, bowel sounds are present in all 4 quadrants, no abdominal tenderness was noted. Extremities nonedematous, no cyanosis was noted, no clubbing was noted. Neuro: Cranial nerves II through XII are grossly intact, no focal motor deficits were noted, sensation to light touch and pinprick is intact, motor exam 5/5 throughout. Psych: Patient is alert and oriented x3, she does not appear anxious or depressed, she does not appear agitated. Patient was discharged home in stable condition on 11/23/2021. Weight / BMI Weight Weight: 81.647 kg Body Mass Index (BMI) 28.1 ABG / Lab / Microbiology Data Result Diagrams: 11/23/21 07:34 11/23/21 07:34 Laboratory: Laboratory Results - last 24 hr 11/23/21 07:34: WBC 11.6 H, RBC 4.18 L, Hgb 13.5, Hct 40.3, MCV 96.4, MCH 32.3 H, MCHC 33.5, RDW Std Deviation 47.8 H, RDW Coeff of Deniz 13.6, Plt Count 325, MPV 10.4, Immature Gran % (Auto) 4.100 H, Neut % (Auto) 75.2 H, Lymph % (Auto) 10.7 L, [place] % (Auto) 9.1, Eos % (Auto) 0.3, Baso % (Auto) 0.6, Absolute Neuts (auto) 8.7 H, Absolute Lymphs (auto) 1.24, Nucleated RBC % 0 11/23/21 07:34: Sodium 133 L, Potassium 4.2, Chloride 100, Carbon Dioxide 28.0, Anion Gap 5, BUN 19 H, Creatinine 0.62, Estim Creat Clear Calc 89.14, Est GFR (MDRD) Af Amer 125, Est GFR (MDRD) Non-Af 103, BUN/Creatinine Ratio 30.7 H, Glucose 97, Calcium 8.9, Total Bilirubin 0.50, AST 16, ALT 22, Alkaline Phosphatase 82, Total Protein 6.8, Albumin 2.4 L, Globulin 4.4 H, Albumin/Globulin Ratio 0.5 L Microbiology: Microbiology 11/11/21 18:00 Sputum, Expectorated/Coughed Gram Stain - Final 11/11/21 18:00 Sputum, Expectorated/Coughed Respiratory Culture - Final 11/08/21 18:10 Blood Culture (Wb) - Left Hand Blood Culture - Final No growth in 5 days. 11/08/21 18:20 Blood Culture (Wb) - Left Hand Blood Culture - Final No growth in 5 days. 11/08/21 16:16 Nasal Secretion SARS-CoV-2 Antigen (Rapid) - Final SARS-CoV-2 (COVID 19) D/C Instructions Discharge Diet: No restrictions Weight Bearing Status: Full weight bearing Meaningful Use Info Meaningful Use Diagnoses (Choose all that apply): None applicable Discharge Plan Admission Admit Date/Time: 11/08/21 19:24 Primary Reason for Your Visit: COVID 19 pneumonia Attending Provider: Randall Bravo Primary Care Provider: Suri Tyler Consulting Providers: Wisam Cline ; Errol Trevino ; Grady Van ; Kyung Noonan DIGITAL CAMERA TECHNICIAN Instructions Additional Instructions / Restrictions: Use oxygen at 4 L/min via nasal cannula while ambulating, you will not need oxygen at rest Discharge Orders/Prescriptions Prescriptions: Continued dicyclomine 10 mg capsule 10 mg PO TID RF: 0 prednisone 10 mg tablet 10 mg PO PRN PRN (Reason: Pain) RF: 0 sulfasalazine 500 mg tablet 500 mg PO TID RF: 0 methotrexate sodium 2.5 mg tablet 20 mg PO X1 RF: 0 levothyroxine [Euthyrox] 50 mcg tablet 50 mcg PO DAILY RF: 0 folic acid 1 mg tablet 1 mg PO DAILY RF: 0 gabapentin 100 mg capsule 100 mg PO TID RF: 0 escitalopram oxalate 10 mg tablet 10 mg PO DAILY RF: 0 hydrocodone-acetaminophen 5-325 mg tablet 5 - 325 tab PO TID RF: 0 Referrals / Follow Up: Suri Tyler DO [Primary Care Provider] - Disposition Disposition (needs filled in before D/C Order can be placed): Home, Self Care Charges/Coding Visit Charges Inpatient E&M: 49926 Disch Hosp
[2021-11-24 10:34] LABS: Pathologist Review Reviewed
== END 2021-11-23 13:50 | disposition home or self-care (01) | DRG 177 ==
LOC: ED 19:32 → MS3 21:37 → MS2 11-09 12:41
PROVIDERS: Internal Medicine; Internal Medicine Critical Care Medicine; Admitting Provider Hospitalist; Emergency Provider Emergency Medicine; PCP Family Medicine; Visit Provider Internal Medicine
DX: U07.1 COVID-19 (principal); J12.82 Pneumonia due to coronavirus disease 2019; J96.01 Acute respiratory failure with hypoxia; I10 Essential (primary) hypertension; K21.9 Gastro-esophageal reflux disease without esophagitis; E03.9 Hypothyroidism, unspecified; M06.9 Rheumatoid arthritis, unspecified; E87.6 Hypokalemia; F41.8 Other specified anxiety disorders; G89.29 Other chronic pain; Z79.899 Other long term (current) drug therapy; Z79.890 Hormone replacement therapy; Z28.3 Underimmunization status
CPT/HCPCS: 36415; 36600; 71045; 80048; 80053; 80076; 82803; 83605; 83735; 83880; 84145; 85025; 85379; 86140; 87040; 87070; 87205; 87426; 93005; 94003; 94660; 94760; 94762; 99251; 99285; J7040; J7050; A4216; G0463; J1940; J2405; J8610

== ENCOUNTER 2022-02-15 11:49 | Outpatient (CLI) | payer MEDICARE, SELFPAY ==
[2022-02-15 15:49] LABS: Absolute Lymphocyte Count 2.09 X10^3/uL (0.83-4.51); Basophil# 0.04 X10^3/uL; Basophil% 0.8 % (0-1); Eosinophils% 4.1 % (0-5); Hematocrit 41.9 % (37-47); Hemoglobin 13.7 g/dL (12.0-15.0); Lymphocyte # 2.09 X10^3/ul (0.83-4.51); Lymphocyte % 43.3 % (19-41); Mean Corp Hgb Conc 32.7 g/dL (32-36); Mean Corpuscular Hgb 30.5 pg (27.0-32.0); Mean Corpuscular Volume 93.3 fL (81-99); Mean Platelet Vol. 10.7 fl (6.2-12.0); Monocyte# 0.47 X10^3/uL; Monocyte% 9.7 % (0-10); NRBC Flagged by Analyzer 0 % (0-5); Neutrophil # 2.02 X10^3/uL (2.7-7.7); Neutrophil % 41.9 % (47-70); Platelet Count 264 K/mm3 (150-450); RBC Distribution Width CV 13.2 % (11.6-14.6); RBC Distribution Width SD 44.8 fl (35.1-43.9); Red Blood Count 4.49 M/mm3 (4.2-5.4); White Blood Count 4.8 K/mm3 (4.4-11.0)
[2022-02-15 16:22] LABS: ALB/GLOB Ratio 1.2 RATIO (0.9-2.4); AST(SGOT) 23 U/L (15-37); Alanine Aminotransfer ALT/SGPT 21 U/L (13-56); Alkaline Phosphatase 58 U/L (45-117); Anion Gap 6 (5-15); BUN 9 mg/dL (7-18); BUN/Creat Ratio 10.5 RATIO (10-20); Chloride 108 mmol/L (98-107); Creatinine, Serum 0.86 mg/dL (0.55-1.02); EST Glomerular Filtration Rate 71 mL/min (>60); Est Glom Filt Rate - Afr Amer 86 mL/min (>60); Globulin 3.2 g/dL (2.2-4.2); Glucose 89 mg/dL (74-106); Potassium 3.8 mmol/L (3.5-5.1); Protein, Total 7.2 g/dL (6.4-8.2); Sodium Level 141 mmol/L (136-145)
== END 2022-02-15 23:59 | disposition home or self-care (01) ==
PROVIDERS: PCP Family Medicine; Referring Provider Internal Medicine Rheumatology; Visit Provider Internal Medicine Rheumatology
DX: M06.4 Inflammatory polyarthropathy (principal); M79.7 Fibromyalgia; M15.9 Polyosteoarthritis, unspecified; M47.897 Other spondylosis, lumbosacral region; E03.9 Hypothyroidism, unspecified; Z79.899 Other long term (current) drug therapy; Z85.038 Personal history of other malignant neoplasm of large intestine
CPT/HCPCS: 36415; 80053; 85025

== ENCOUNTER → 2022-05-17 | Outpatient (CLI) | payer MEDICARE, SELFPAY ==
[2022-05-17 15:24] LABS: Absolute Lymphocyte Count 1.73 X10^3/uL (0.83-4.51); Absolute Neutrophil Count 3.9 X10^3/uL (2.0-7.7); Basophil# 0.03 X10^3/uL; Basophil% 0.5 % (0-1); Eosinophil# 0.07 X10^3/uL; Eosinophils% 1.2 % (0-5); Hematocrit 39.8 % (37-47); Lymphocyte # 1.73 X10^3/ul (0.83-4.51); Lymphocyte % 28.5 % (19-41); Mean Corp Hgb Conc 32.7 g/dL (32-36); Mean Platelet Vol. 9.7 fl (6.2-12.0); Monocyte# 0.38 X10^3/uL; Monocyte% 6.3 % (0-10); NRBC Flagged by Analyzer 0 % (0-5); Neutrophil # 3.85 X10^3/uL (2.7-7.7); Neutrophil % 63.3 % (47-70); Platelet Count 276 K/mm3 (150-450); RBC Distribution Width CV 16.8 % (11.6-14.6); RBC Distribution Width SD 59.9 fl (35.1-43.9); Red Blood Count 4.06 M/mm3 (4.2-5.4); White Blood Count 6.1 K/mm3 (4.4-11.0)
[2022-05-17 15:50] LABS: ALB/GLOB Ratio 1.3 RATIO (0.9-2.4); AST(SGOT) 22 U/L (15-37); Alanine Aminotransfer ALT/SGPT 27 U/L (13-56); Albumin, Serum 4.2 g/dL (3.2-5.0); Alkaline Phosphatase 59 U/L (45-117); Anion Gap 6 (5-15); BUN 11 mg/dL (7-18); BUN/Creat Ratio 13.1 RATIO (10-20); Calcium,Total 9.1 mg/dL (8.5-10.1); Chloride 105 mmol/L (98-107); Creatinine, Serum 0.84 mg/dL (0.55-1.02); EST Glomerular Filtration Rate 73 mL/min (>60); Est Glom Filt Rate - Afr Amer 88 mL/min (>60); Globulin 3.2 g/dL (2.2-4.2); Glucose 104 mg/dL (74-106); Potassium 3.5 mmol/L (3.5-5.1); Protein, Total 7.4 g/dL (6.4-8.2); Sodium Level 139 mmol/L (136-145)
== END | disposition home or self-care (01) ==
LOC: MTLAB 12:58
PROVIDERS: PCP Family Medicine; Referring Provider Internal Medicine Rheumatology; Visit Provider Internal Medicine Rheumatology
DX: M06.4 Inflammatory polyarthropathy (principal); M79.7 Fibromyalgia; M15.9 Polyosteoarthritis, unspecified; M47.897 Other spondylosis, lumbosacral region; E03.9 Hypothyroidism, unspecified; Z85.038 Personal history of other malignant neoplasm of large intestine; Z79.899 Other long term (current) drug therapy
CPT/HCPCS: 36415; 80053; 85025

== ENCOUNTER → 2022-08-09 | Outpatient (CLI) | payer MEDICARE, SELFPAY ==
[2022-08-09 10:00] LABS: Absolute Lymphocyte Count 1.64 X10^3/uL (0.83-4.51); Absolute Neutrophil Count 2.1 X10^3/uL (2.0-7.7); Basophil# 0.02 X10^3/uL; Basophil% 0.5 % (0-1); Eosinophil# 0.05 X10^3/uL; Eosinophils% 1.2 % (0-5); Hematocrit 39.7 % (37-47); Hemoglobin 13.1 g/dL (12.0-15.0); Lymphocyte # 1.64 X10^3/ul (0.83-4.51); Lymphocyte % 39.7 % (19-41); Mean Corpuscular Hgb 32.9 pg (27.0-32.0); Mean Corpuscular Volume 99.7 fL (81-99); Monocyte# 0.31 X10^3/uL; Monocyte% 7.5 % (0-10); NRBC Flagged by Analyzer 0 % (0-5); Neutrophil % 50.9 % (47-70); Platelet Count 236 K/mm3 (150-450); RBC Distribution Width CV 13.3 % (11.6-14.6); Red Blood Count 3.98 M/mm3 (4.2-5.4); White Blood Count 4.1 K/mm3 (4.4-11.0)
[2022-08-09 11:04] LABS: ALB/GLOB Ratio 1.3 RATIO (0.9-2.4); AST(SGOT) 20 U/L (15-37); Alanine Aminotransfer ALT/SGPT 24 U/L (13-56); Albumin, Serum 3.8 g/dL (3.2-5.0); Alkaline Phosphatase 51 U/L (45-117); Anion Gap 6 (5-15); BUN 16 mg/dL (7-18); BUN/Creat Ratio 23.5 RATIO (10-20); Calcium,Total 9.5 mg/dL (8.5-10.1); Chloride 107 mmol/L (98-107); Creatinine, Serum 0.68 mg/dL (0.55-1.02); EST Glomerular Filtration Rate 92 mL/min (>60); Est Glom Filt Rate - Afr Amer 111 mL/min (>60); Glucose 90 mg/dL (74-106); Protein, Total 6.8 g/dL (6.4-8.2); Sodium Level 141 mmol/L (136-145)
== END | disposition home or self-care (01) ==
LOC: MTLAB 09:09
PROVIDERS: PCP Family Medicine; Referring Provider Internal Medicine Rheumatology; Visit Provider Internal Medicine Rheumatology
DX: M06.4 Inflammatory polyarthropathy (principal); M79.7 Fibromyalgia; M15.9 Polyosteoarthritis, unspecified; M47.897 Other spondylosis, lumbosacral region; E03.9 Hypothyroidism, unspecified; Z85.038 Personal history of other malignant neoplasm of large intestine; Z79.899 Other long term (current) drug therapy
CPT/HCPCS: 36415; 80053; 85025

== ENCOUNTER → 2022-11-04 | Outpatient (CLI) | payer MEDICARE, SELFPAY ==
[2022-11-04 15:17] LABS: Absolute Lymphocyte Count 1.89 X10^3/uL (0.83-4.51); Absolute Neutrophil Count 2.9 X10^3/uL (2.0-7.7); Basophil# 0.04 X10^3/uL; Basophil% 0.7 % (0-1); Eosinophil# 0.07 X10^3/uL; Eosinophils% 1.3 % (0-5); Hematocrit 43.2 % (37-47); Lymphocyte # 1.89 X10^3/ul (0.83-4.51); Lymphocyte % 35.3 % (19-41); Mean Corp Hgb Conc 32.4 g/dL (32-36); Mean Corpuscular Hgb 33.3 pg (27.0-32.0); Mean Corpuscular Volume 102.6 fL (81-99); Mean Platelet Vol. 10.2 fl (6.2-12.0); Monocyte% 7.5 % (0-10); NRBC Flagged by Analyzer 0 % (0-5); Neutrophil # 2.94 X10^3/uL (2.7-7.7); Platelet Count 283 K/mm3 (150-450); RBC Distribution Width CV 14.3 % (11.6-14.6); RBC Distribution Width SD 54.2 fl (35.1-43.9); Red Blood Count 4.21 M/mm3 (4.2-5.4); White Blood Count 5.4 K/mm3 (4.4-11.0)
[2022-11-04 15:37] LABS: ALB/GLOB Ratio 1.5 RATIO (0.9-2.4); AST(SGOT) 21 U/L (15-37); Alanine Aminotransfer ALT/SGPT 28 U/L (13-56); Alkaline Phosphatase 57 U/L (45-117); Anion Gap 6 (5-15); BUN 12 mg/dL (7-18); BUN/Creat Ratio 17.3 RATIO (10-20); Calcium,Total 9.1 mg/dL (8.5-10.1); Chloride 108 mmol/L (98-107); EST Glomerular Filtration Rate 90 mL/min (>60); Est Glom Filt Rate - Afr Amer 109 mL/min (>60); Globulin 2.6 g/dL (2.2-4.2); Glucose 91 mg/dL (74-106); Potassium 4.2 mmol/L (3.5-5.1); Protein, Total 6.6 g/dL (6.4-8.2); Sodium Level 141 mmol/L (136-145)
== END | disposition home or self-care (01) ==
PROVIDERS: PCP Family Medicine; Referring Provider Internal Medicine Rheumatology; Visit Provider Internal Medicine Rheumatology
DX: M06.4 Inflammatory polyarthropathy (principal); M79.7 Fibromyalgia; M15.9 Polyosteoarthritis, unspecified; M47.897 Other spondylosis, lumbosacral region; E03.9 Hypothyroidism, unspecified; Z85.038 Personal history of other malignant neoplasm of large intestine; Z79.899 Other long term (current) drug therapy
CPT/HCPCS: 36415; 80053; 85025

== ENCOUNTER 2022-12-10 15:52 | Outpatient (CLI) | payer MEDICARE, SELFPAY ==
[2022-12-10 18:30] LABS: ALB/GLOB Ratio 1.1 RATIO (0.9-2.4); AST(SGOT) 17 U/L (15-37); Alanine Aminotransfer ALT/SGPT 19 U/L (13-56); Albumin, Serum 3.4 g/dL (3.2-5.0); Alkaline Phosphatase 69 U/L (45-117); Anion Gap 9 (5-15); BUN 14 mg/dL (7-18); Calcium,Total 9.3 mg/dL (8.5-10.1); Chloride 104 mmol/L (98-107); Cholesterol 237 mg/dL (200); Creatinine, Serum 0.67 mg/dL (0.55-1.02); EST Glomerular Filtration Rate 94 mL/min (>60); Est Glom Filt Rate - Afr Amer 114 mL/min (>60); Globulin 3.1 g/dL (2.2-4.2); Glucose 94 mg/dL (74-106); High Density Lipoprotein 55 mg/dL; Protein, Total 6.5 g/dL (6.4-8.2); Sodium Level 142 mmol/L (136-145); Thyroid Stim Hormone (TSH) 2.42 uIU/mL (0.358-3.74); Triglycerides 244 mg/dL; Very Low Density Lipoprotein 49 mg/dL (5-40)
== END 2022-12-10 23:59 | disposition home or self-care (01) ==
LOC: MFPLAB 15:55
PROVIDERS: PCP Family Medicine; Visit Provider Family Medicine
DX: I10 Essential (primary) hypertension (principal)
CPT/HCPCS: 36415; 80053; 80061; 84443

== ENCOUNTER → 2023-01-31 | Outpatient (CLI) | payer MEDICARE, SELFPAY ==
[2023-01-31 15:06] LABS: Absolute Lymphocyte Count 1.56 X10^3/uL (0.83-4.51); Absolute Neutrophil Count 1.8 X10^3/uL (2.0-7.7); Basophil# 0.03 X10^3/uL; Basophil% 0.8 % (0-1); Eosinophil# 0.04 X10^3/uL; Hematocrit 42.4 % (37-47); Hemoglobin 13.6 g/dL (12.0-15.0); Lymphocyte # 1.56 X10^3/ul (0.83-4.51); Lymphocyte % 39.4 % (19-41); Mean Corp Hgb Conc 32.1 g/dL (32-36); Mean Corpuscular Hgb 32.2 pg (27.0-32.0); Mean Corpuscular Volume 100.5 fL (81-99); Mean Platelet Vol. 10.1 fl (6.2-12.0); Monocyte% 12.6 % (0-10); NRBC Flagged by Analyzer 0 % (0-5); Neutrophil # 1.82 X10^3/uL (2.7-7.7); Neutrophil % 45.9 % (47-70); Platelet Count 248 K/mm3 (150-450); Red Blood Count 4.22 M/mm3 (4.2-5.4)
[2023-01-31 15:42] LABS: ALB/GLOB Ratio 1.3 RATIO (0.9-2.4); AST(SGOT) 20 U/L (15-37); Alanine Aminotransfer ALT/SGPT 22 U/L (13-56); Albumin, Serum 3.9 g/dL (3.2-5.0); Alkaline Phosphatase 62 U/L (45-117); Anion Gap 6 (5-15); BUN 10 mg/dL (7-18); BUN/Creat Ratio 13.8 RATIO (10-20); Calcium,Total 9.4 mg/dL (8.5-10.1); Chloride 105 mmol/L (98-107); Creatinine, Serum 0.72 mg/dL (0.55-1.02); EST Glomerular Filtration Rate 86 mL/min (>60); Est Glom Filt Rate - Afr Amer 104 mL/min (>60); Glucose 96 mg/dL (74-106); Potassium 3.8 mmol/L (3.5-5.1); Protein, Total 6.9 g/dL (6.4-8.2); Sodium Level 140 mmol/L (136-145)
== END | disposition home or self-care (01) ==
PROVIDERS: PCP Family Medicine; Referring Provider Internal Medicine Rheumatology; Visit Provider Internal Medicine Rheumatology
DX: M06.4 Inflammatory polyarthropathy (principal); Z79.899 Other long term (current) drug therapy; M79.7 Fibromyalgia; M15.9 Polyosteoarthritis, unspecified; M47.897 Other spondylosis, lumbosacral region; Z85.038 Personal history of other malignant neoplasm of large intestine; E03.9 Hypothyroidism, unspecified
CPT/HCPCS: 36415; 80053; 85025

== ENCOUNTER → 2023-04-15 | Outpatient (CLI) | payer MEDICARE, SELFPAY ==
--- NOTE | 2023-04-15 15:30 | MRI_ITS ---
EXAM: MR HEAD WITHOUT AND WITH INTRAVENOUS CONTRAST CLINICAL INDICATION: R TINNITUS TECHNIQUE: Multiplanar and multisequence MR images of the brain were obtained without and with intravenous contrast. CONTRAST: IV 19 cc clariscan COMPARISON: No relevant prior studies available. FINDINGS: BRAIN AND EXTRA-AXIAL SPACES: Periventricular small vessel ischemic change. Diffuse parenchymal atrophy. Posterior fossa structures are unremarkable. Basal cisterns are patent. No acute intracranial hemorrhage, mass effect or edema. No evidence of acute cortical stroke. No midline shift or hydrocephalus. SELLA: Unremarkable. Normal sella turcica, pituitary gland, infundibular stalk, optic chiasm and hypothalamus. AUDITORY SYSTEM: Unremarkable. The internal auditory canals are patent. BONES/JOINTS: Unremarkable. No discrete lytic or blastic abnormalities. SINUSES: Unremarkable as visualized. Clear. MASTOID AIR CELLS: Opacification of the inferior aspect of the right mastoid air cells. Visualized sinuses and mastoid air cells are clear. ORBITS: Unremarkable as visualized. Both globes, extraocular muscles, optic nerves and retrobulbar fat appear unremarkable. VASCULATURE: Unremarkable as visualized. Normal flow voids in the major intracranial circulation. MRI/Brain W/WO Contrast IMPRESSION: 1. No evidence of acute intracranial pathology. 2. Diffuse involutional changes and chronic ischemic small vessel white matter disease. 3. Opacification of the inferior aspect of the right mastoid air cells which can be seen with mild mastoiditis. Electronically Signed: Mario Lee MD at 22:57 EDT ,
[2023-04-15 15:56] LABS: CREATININE FINGERSTICK < 0.9 mg/dL (0.55-1.02); EGFR FINGERSTICK > 60.0000 mL/min (>60)
== END | disposition home or self-care (01) ==
LOC: MRI 15:24
PROVIDERS: PCP Family Medicine; Referring Provider Otolaryngology; Visit Provider Otolaryngology
DX: H93.11 Tinnitus, right ear (principal)
CPT/HCPCS: 70553; A9575

== ENCOUNTER → 2023-04-22 | Outpatient (CLI) | payer MEDICARE, SELFPAY ==
[2023-04-22 12:43] LABS: Anion Gap 8 (5-15); BUN 11 mg/dL (7-18); BUN/Creat Ratio 14.5 RATIO (10-20); Calcium,Total 9.6 mg/dL (8.5-10.1); Chloride 104 mmol/L (98-107); Creatinine, Serum 0.76 mg/dL (0.55-1.02); EST Glomerular Filtration Rate 81 mL/min (>60); Est Glom Filt Rate - Afr Amer 99 mL/min (>60); Glucose 93 mg/dL (74-106); Potassium 3.9 mmol/L (3.5-5.1); Sodium Level 139 mmol/L (136-145)
== END | disposition home or self-care (01) ==
LOC: MFPLAB 10:36
PROVIDERS: PCP Family Medicine; Visit Provider Family Medicine
DX: I10 Essential (primary) hypertension (principal)
CPT/HCPCS: 36415; 80048

== ENCOUNTER → 2023-04-27 | Outpatient (CLI) | payer MEDICARE, SELFPAY ==
[2023-04-27 15:31] LABS: Absolute Lymphocyte Count 1.75 X10^3/uL (0.83-4.51); Absolute Neutrophil Count 1.8 X10^3/uL (2.0-7.7); Basophil# 0.02 X10^3/uL; Basophil% 0.5 % (0-1); Eosinophil# 0.06 X10^3/uL; Eosinophils% 1.6 % (0-5); Hematocrit 41.8 % (37-47); Hemoglobin 13.3 g/dL (12.0-15.0); Lymphocyte # 1.75 X10^3/ul (0.83-4.51); Lymphocyte % 45.3 % (19-41); Mean Corp Hgb Conc 31.8 g/dL (32-36); Mean Corpuscular Volume 100.7 fL (81-99); Mean Platelet Vol. 10.5 fl (6.2-12.0); Monocyte# 0.27 X10^3/uL; NRBC Flagged by Analyzer 0 % (0-5); Neutrophil # 1.75 X10^3/uL (2.7-7.7); Neutrophil % 45.3 % (47-70); Platelet Count 245 K/mm3 (150-450); RBC Distribution Width CV 13.5 % (11.6-14.6); RBC Distribution Width SD 50.2 fl (35.1-43.9); Red Blood Count 4.15 M/mm3 (4.2-5.4); White Blood Count 3.9 K/mm3 (4.4-11.0)
[2023-04-27 16:05] LABS: ALB/GLOB Ratio 1.3 RATIO (0.9-2.4); AST(SGOT) 25 U/L (15-37); Alanine Aminotransfer ALT/SGPT 23 U/L (13-56); Albumin, Serum 3.9 g/dL (3.2-5.0); Alkaline Phosphatase 66 U/L (45-117); Anion Gap 7 (5-15); BUN 8 mg/dL (7-18); BUN/Creat Ratio 12.3 RATIO (10-20); Calcium,Total 9.3 mg/dL (8.5-10.1); Chloride 108 mmol/L (98-107); Creatinine, Serum 0.65 mg/dL (0.55-1.02); EST Glomerular Filtration Rate 97 mL/min (>60); Est Glom Filt Rate - Afr Amer 118 mL/min (>60); Globulin 2.9 g/dL (2.2-4.2); Glucose 86 mg/dL (74-106); Protein, Total 6.8 g/dL (6.4-8.2); Sodium Level 143 mmol/L (136-145)
== END | disposition home or self-care (01) ==
LOC: MTLAB 14:00
PROVIDERS: PCP Family Medicine; Referring Provider Internal Medicine Rheumatology; Visit Provider Internal Medicine Rheumatology
DX: M06.4 Inflammatory polyarthropathy (principal); Z79.899 Other long term (current) drug therapy; M15.9 Polyosteoarthritis, unspecified
CPT/HCPCS: 36415; 80053; 85025

== ENCOUNTER 2023-06-16 12:18 | Outpatient (RCR) | payer MEDICARE, SELFPAY | END 2023-06-16 19:00 | disposition home or self-care (01) | LOC: PT 12:18 | PROVIDERS: PCP Family Medicine; Referring Provider Physician Assistant Surgical; Visit Provider Physician Assistant Surgical | DX: M51.37 Other intervertebral disc degeneration, lumbosacral region (principal); M54.16 Radiculopathy, lumbar region ==

== ENCOUNTER → 2023-06-20 | Outpatient (CLI) | payer MEDICARE, SELFPAY ==
--- NOTE | 2023-06-20 13:02 | BI_ITS ---
MAMMOGRAPHY - BILATERAL SCREENING REASON FOR EXAM: Female, 67 years old. Routine annual screening examination. PERTINENT HISTORY: Sisters with breast cancer. Aunt with breast cancer. TECHNIQUE: Digital bilateral breast leonor (3D mammographic acquisition) in the CC and MLO projections. 2-D mediolateral oblique (MLO) and craniocaudad (CC) views of both breasts were obtained. CAD: Full Field Digital Mammography with Computer Added Detection was performed. COMPARISON: Comparison is made with prior ultrasound examination dated February 17, 2022 and September 18, 2019. FINDINGS: Breast Composition: There are scattered areas of fibroglandular density. There are no dominant masses or suspicious calcifications. No other significant abnormalities are identified. There has been no significant change since the prior study. BI/SCRN MAMM (CAD)W/LEONOR BILAT IMPRESSION: Stable bilateral screening mammogram. Yearly follow-up mammogram recommended. (A) ASSESSMENT CATEGORY: BIRADS Category 1: Negative. A letter regarding these results will be sent to the patient by the facility within 30 days. Approximately 10% of breast cancers are not detected by mammography. A normal mammogram should not delay biopsy of a clinically suspicious abnormality. [id number] Electronically Signed: Law Gaxiola MD at 15:00 EDT ,
== END | disposition home or self-care (01) ==
LOC: OPBI 13:01
PROVIDERS: PCP Family Medicine; Referring Provider Family Medicine; Visit Provider Family Medicine
DX: Z12.31 Encounter for screening mammogram for malignant neoplasm of breast (principal)
CPT/HCPCS: 77063; 77067

== ENCOUNTER → 2023-08-24 | Outpatient (CLI) | payer MEDICARE, SELFPAY ==
[2023-08-24 12:13] LABS: Absolute Lymphocyte Count 1.77 X10^3/uL (0.83-4.51); Absolute Neutrophil Count 2.4 X10^3/uL (2.0-7.7); Basophil# 0.03 X10^3/uL; Basophil% 0.7 % (0-1); Eosinophil# 0.06 X10^3/uL; Eosinophils% 1.3 % (0-5); Hematocrit 42.1 % (37-47); Hemoglobin 13.5 g/dL (12.0-15.0); Lymphocyte # 1.77 X10^3/ul (0.83-4.51); Lymphocyte % 38.6 % (19-41); Mean Corp Hgb Conc 32.1 g/dL (32-36); Mean Corpuscular Volume 102.9 fL (81-99); Mean Platelet Vol. 10.1 fl (6.2-12.0); Monocyte# 0.38 X10^3/uL; Monocyte% 8.3 % (0-10); NRBC Flagged by Analyzer 0 % (0-5); Neutrophil # 2.35 X10^3/uL (2.7-7.7); Neutrophil % 51.1 % (47-70); Platelet Count 241 K/mm3 (150-450); RBC Distribution Width CV 13.2 % (11.6-14.6); RBC Distribution Width SD 50.4 fl (35.1-43.9); Red Blood Count 4.09 M/mm3 (4.2-5.4); White Blood Count 4.6 K/mm3 (4.4-11.0)
[2023-08-24 13:13] LABS: ALB/GLOB Ratio 1.2 RATIO (0.9-2.4); AST(SGOT) 20 U/L (15-37); Alanine Aminotransfer ALT/SGPT 27 U/L (13-56); Albumin, Serum 3.7 g/dL (3.2-5.0); Alkaline Phosphatase 58 U/L (45-117); Anion Gap 4 (5-15); BUN 9 mg/dL (7-18); BUN/Creat Ratio 14.7 RATIO (10-20); Calcium,Total 8.8 mg/dL (8.5-10.1); Chloride 109 mmol/L (98-107); Creatinine, Serum 0.61 mg/dL (0.55-1.02); EST Glomerular Filtration Rate 104 mL/min (>60); Est Glom Filt Rate - Afr Amer 126 mL/min (>60); Glucose 89 mg/dL (74-106); Protein, Total 6.7 g/dL (6.4-8.2); Sodium Level 140 mmol/L (136-145)
== END | disposition home or self-care (01) ==
PROVIDERS: PCP Family Medicine; Referring Provider Internal Medicine Rheumatology; Visit Provider Internal Medicine Rheumatology
DX: M06.4 Inflammatory polyarthropathy (principal); Z79.899 Other long term (current) drug therapy
CPT/HCPCS: 36415; 80053; 85025

== ENCOUNTER → 2023-11-25 | Outpatient (CLI) | payer MEDICARE, SELFPAY ==
--- OUTSIDE RECORDS SUMMARY | 2023-11-25 09:27 | XMS RPT_ITS | CCD ---
Author Name Unknown Address [address] [place] [address] Organization [facility] Care Team Providers Care Jr. Systems Administrator Name Role Phone Suri Tyler Primary Care Provider Results Test Name Value Interpretation Reference Range Facil ity Vital Signs Date Time Vital Sign Value Performing Clinician Zaida madrid 08-28-2020 10:52-0400 BMI (Body Mass Index) 26.47 kg/m2 [place], [place] 08-28-2020 10:52-0400 Body weight 74.39 kg [place], [place] 08-28-2020 10:52-0400 Height 167.6 cm [place] Encounters Encounter Date Encounter Type Care Provider Facility Start: 02-17-2022 End: 02-17-2022 Subsequent hospital visit by physician Suri Tyler DO Work Phone: [facility] [place] [facility] Procedures Date Procedure Procedure Detail Performing Clinician Start: 02-17-2022 Dxa bone density xavier dy 1/> sites axial skel Suri Tyler DO Work Phone: Start: 02-17-2022 Screening digital br east tomosynthesis bi Suri Tyler DO Work Phone: Start: 01-30-2021 Screening digital br east tomosynthesis bi Suri Tyler Work Phone: Start: 08-28-2020 Hepatobil syst imag inc gb w/pharma intervenj Suri Tyler Work Phone: Start: 08-07-2020 Us abdominal real ti me w/image limited Suri Tyler Work Phone: Plan of Treatment Date Care Activity Detail Author Start: 01-30-2023 Screening for malign ant neoplasm of breast Breast cancer screen [facility] Start: 09-18-2021 Screening for malign ant neoplasm of breast Breast cancer screen [place], [place] Start: 07-29-2021 Influenza vaccination Flu vaccine (# 1) [facility] Start: 07-29-2020 Influenza vaccination Flu vaccine (# 1) [place], [place] Start: 07-29-2019 Influenza vaccination Flu vaccine (# 1) [place] Start: 07-08-2017 Breast cancer screen Breast cancer s creen [place], [place] Start: 2007 Colon cancer screen colonoscopy Colon cancer screen colonoscopy [place], [place] Start: 2007 Screening for malign ant neoplasm of colon Colon cancer screen colonoscopy [place] Start: 2007 Shingles Vaccine (1 of 2) Pulliam gles Vaccine (1 of 2) [facility] Start: 2002 Screening for malign ant neoplasm of colon [facility] Start: 1997 Diabetes screen Diabetes screen [place], [place] Start: 1997 Lipid panel Lipid screen [facility] Start: 1997 Lipid screen Lipid screen [place], [place] Start: 1987 Screening for malign ant neoplasm of cervix [facility] Start: 1978 Cervical cancer screen Cervical canc er screen [place], [place] Start: 1978 Screening for malign ant neoplasm of cervix [facility] Start: 1976 DTaP/Tdap/Td vaccine (1 - Tdap) DTaP/Tdap/Td vaccine (1 - Tdap) [facility] Start: 1973 COVID-19 Vaccine (1 of 2) COVI D-19 Vaccine (1 of 2) [facility] Work Phone: Start: 1972 HIV screen HIV screen [place], [place] Start: 1972 HIV screening HIV screen [facility] Start: 1969 Depression Screen Depression Screen [facility] Start: 1962 COVID-19 Vaccine (1) COVID-19 Vaccin e (1) [facility] Start: 1957 Hepatitis C screen Hepatitis C scree n [place], [place] Start: 1957 Hepatitis C screening [facility] End: 09-18-2019 Screening digital breast tomosynthesis bi Vicenta Kurt Digital Screen Bilateral Imaging Routine Once for 1 Occurrences [facility]2019 [facility] Date Type Detail Facility [facility]: [facility] Sex Assigned At Not on file M [place], [place] Tobacco smoking stat [facility] Tobacco smoking consumption unknown [facility] Work Phone: Advance Directives No Advanced Directives Records FoundDocuments on File Type Date Recorded 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 This clinical summary was aggregated from multiple sources. Caution should be exercised in using it in the provision of clinical care. This summary normalizes information from multiple sources, and as a consequence, information in this document may materially change the coding, format and clinical context of patient data. In addition, data may be omitted in some cases. CLINICAL DECISIONS SHOULD BE BASED ON THE PRIMARY CLINICAL RECORDS. [employer] [facility]. provides no warranty or guarantee of the accuracy or completeness of information in this document.
[2023-11-25 09:53] LABS: Absolute Lymphocyte Count 0.63 X10^3/uL (0.83-4.51); Absolute Neutrophil Count 5.4 X10^3/uL (2.0-7.7); Basophil# 0.02 X10^3/uL; Basophil% 0.3 % (0-1); Eosinophil# 0.01 X10^3/uL; Eosinophils% 0.2 % (0-5); Hematocrit 41.2 % (37-47); Hemoglobin 13.3 g/dL (12.0-15.0); Lymphocyte # 0.63 X10^3/ul (0.83-4.51); Lymphocyte % 9.8 % (19-41); Mean Corp Hgb Conc 32.3 g/dL (32-36); Mean Corpuscular Hgb 32.4 pg (27.0-32.0); Mean Corpuscular Volume 100.5 fL (81-99); Mean Platelet Vol. 10.5 fl (6.2-12.0); Monocyte# 0.36 X10^3/uL; Monocyte% 5.6 % (0-10); NRBC Flagged by Analyzer 0 % (0-5); Neutrophil # 5.38 X10^3/uL (2.7-7.7); Neutrophil % 83.8 % (47-70); Platelet Count 227 K/mm3 (150-450); RBC Distribution Width CV 14.1 % (11.6-14.6); RBC Distribution Width SD 51.8 fl (35.1-43.9); White Blood Count 6.4 K/mm3 (4.4-11.0)
[2023-11-25 10:17] LABS: AST(SGOT) 23 U/L (15-37); Alanine Aminotransfer ALT/SGPT 19 U/L (13-56); Albumin, Serum 3.6 g/dL (3.2-5.0); Alkaline Phosphatase 54 U/L (45-117); Anion Gap 10 (5-15); BUN 9 mg/dL (7-18); BUN/Creat Ratio 12.5 RATIO (10-20); Calcium,Total 8.9 mg/dL (8.5-10.1); Chloride 102 mmol/L (98-107); Creatinine, Serum 0.72 mg/dL (0.55-1.02); EST Glomerular Filtration Rate 86 mL/min (>60); Est Glom Filt Rate - Afr Amer 105 mL/min (>60); Globulin 3.7 g/dL (2.2-4.2); Glucose 110 mg/dL (74-106); Potassium 3.8 mmol/L (3.5-5.1); Protein, Total 7.3 g/dL (6.4-8.2); Sodium Level 138 mmol/L (136-145)
== END | disposition home or self-care (01) ==
LOC: MTLAB 09:00
PROVIDERS: PCP Family Medicine; Referring Provider Internal Medicine Rheumatology; Visit Provider Internal Medicine Rheumatology
DX: M06.4 Inflammatory polyarthropathy (principal); Z79.899 Other long term (current) drug therapy
CPT/HCPCS: 36415; 80053; 85025

== ENCOUNTER → 2023-12-13 | Outpatient (CLI) | payer MEDICARE, SELFPAY ==
[2023-12-13 08:19] LABS: Bacteria 0 SEEN /hpf (None Seen); Mucous, Urine 0 SEEN /hpf (<or=2+); Red Blood Cells-Urine 0 SEEN /hpf (0-5); Squamous Epithelial Cells - UA 0 SEEN /hpf (5-10)
--- OUTSIDE RECORDS SUMMARY | 2023-12-13 08:47 | XMS RPT_ITS | CCD ---
Author Name Unknown Address [address] [place] [address] Organization [facility] Care Team Providers Care Checker/Stocker Name Role Phone Suri Tyler Primary Care Provider Results Test Name Value Interpretation Reference Range Facil ity Vital Signs Date Time Vital Sign Value Performing Clinician Zaida madrid 08-28-2020 10:52-0400 BMI (Body Mass Index) 26.47 kg/m2 [place], [place] 08-28-2020 10:52-0400 Body weight 74.39 kg [place], [place] 08-28-2020 10:52-0400 Height 167.6 cm [place], [place] Encounters Encounter Date Encounter Type Care Provider Facility Start: 02-17-2022 End: 02-17-2022 Subsequent hospital visit by physician Suri Tyler DO Work Phone: [facility] Procedures Date Procedure Procedure Detail Performing [...] ant neoplasm of breast Breast cancer screen [place], [place] Start: 07-29-2021 Influenza vaccination Flu vaccine (# 1) [facility] Start: 07-29-2020 Influenza vaccination Flu vaccine (# 1) [place], [place] Start: 07-29-2019 Influenza vaccination Flu vaccine (# 1) [place] Start: 07-08-2017 Breast cancer screen Breast cancer [place] creen [place], [place] Start: 2007 Colon cancer screen colonoscopy Colon cancer screen colonoscopy [place] Start: 2007 Screening for malign ant neoplasm of colon Colon cancer screen colonoscopy [place] Start: 2007 Shingles Vaccine (1 of 2) Pulliam gles Vaccine (1 of 2) [facility] Start: 2002 Screening for malign ant neoplasm of colon [facility] Start: 1997 Diabetes screen Diabetes screen [place], [place] Start: 1997 Lipid panel Lipid screen [facility] Start: 1997 Lipid screen Lipid screen [place], [place] Start: 1987 Screening for malign ant neoplasm of cervix [facility] Start: 1978 Cervical cancer screen Cervical canc er screen [place], [place] Start: 1978 Screening for malign ant neoplasm of cervix [facility] Start: 1976 DTaP/Tdap/Td vaccine (1 - Tdap) DTaP/Tdap/Td vaccine (1 - Tdap) [facility] Start: 1973 COVID-19 Vaccine (1 of 2) COVI D-19 Vaccine (1 of 2) [facility] Work Phone: Start: 1972 HIV screen HIV screen [place], [place] Start: 1972 HIV screening HIV screen [facility] Start: 1969 Depression Screen Depression Screen [facility] Start: 1962 COVID-19 Vaccine (1) COVID-19 Vaccin e (1) [facility] Start: 1957 Hepatitis C screen Hepatitis C scree n [place], [place] Start: 1957 Hepatitis C screening Hepatitis C chiqui matias [facility] End: 09-18-2019 Screening digital breast tomosynthesis bi Vicenta Kurt Digital Screen Bilateral Imaging Routine Once for 1 Occurrences starting 09/18/2019 until 09/18/2019 [facility] Social History Date Type Detail Facility [facility]: [facility] Sex Assigned At Not on file M [place], [place] Tobacco smoking stat [facility] Tobacco smoking consumption unknown [facility] Work Phone: Advance Directives No Advanced Directives Records FoundDocuments on File Type Date Recorded 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 [employer] [facility]. provides no warranty or guarantee of the accuracy or completeness of information in this document.
[2023-12-13 10:04] LABS: Absolute Lymphocyte Count 3.15 X10^3/uL (0.83-4.51); Basophil# 0.03 X10^3/uL; Basophil% 0.5 % (0-1); Eosinophil# 0.05 X10^3/uL; Eosinophils% 0.9 % (0-5); Hematocrit 39.5 % (37-47); Hemoglobin 12.4 g/dL (12.0-15.0); Lymphocyte # 3.15 X10^3/ul (0.83-4.51); Lymphocyte % 54.5 % (19-41); Mean Corp Hgb Conc 31.4 g/dL (32-36); Mean Corpuscular Hgb 32.3 pg (27.0-32.0); Mean Corpuscular Volume 102.9 fL (81-99); Mean Platelet Vol. 10.4 fl (6.2-12.0); Monocyte# 0.54 X10^3/uL; Monocyte% 9.3 % (0-10); NRBC Flagged by Analyzer 0 % (0-5); Neutrophil % 34.6 % (47-70); Platelet Count 237 K/mm3 (150-450); RBC Distribution Width CV 14.6 % (11.6-14.6); RBC Distribution Width SD 55.5 fl (35.1-43.9); Red Blood Count 3.84 M/mm3 (4.2-5.4); White Blood Count 5.8 K/mm3 (4.4-11.0)
[2023-12-13 10:13] LABS: Color, Urine Yellow (Yellow); Glucose, Dipstick Normal (Normal); Ketone-Dipstick Negative (Negative); Leukocyte Esterase-Dipstick 25 /ul (Negative); Nitrite-Dipstick Negative (Negative); Occult Blood-Urine Negative /ul (Negative); Protein-Dipstick Negative (Negative); Urine Bilirubin Dipstick Negative (Negative); Urine Clarity Sl. Cloudy (Clear); Urine Urobilinogen Normal (Normal); Urine pH 6.5 (5.0 - 8.0)
[2023-12-13 10:19] LABS: White Blood Cells 0-5 SEEN /hpf (0-5)
[2023-12-13 10:40] LABS: Vitamin D,25 Hydroxy 37.7 ng/mL
[2023-12-13 10:59] LABS: ALB/GLOB Ratio 1.3 RATIO (0.9-2.4); AST(SGOT) 16 U/L (15-37); Alanine Aminotransfer ALT/SGPT 21 U/L (13-56); Albumin, Serum 3.6 g/dL (3.2-5.0); Alkaline Phosphatase 49 U/L (45-117); Anion Gap 8 (5-15); BUN 15 mg/dL (7-18); BUN/Creat Ratio 22.3 RATIO (10-20); Calcium,Total 9.3 mg/dL (8.5-10.1); Chloride 109 mmol/L (98-107); Cholesterol 343 mg/dL (200); Creatinine, Serum 0.67 mg/dL (0.55-1.02); EST Glomerular Filtration Rate 93 mL/min (>60); Est Glom Filt Rate - Afr Amer 112 mL/min (>60); Globulin 2.8 g/dL (2.2-4.2); Glucose 90 mg/dL (74-106); High Density Lipoprotein 77 mg/dL; Magnesium 2.4 mg/dL (1.6-2.6); Potassium 3.5 mmol/L (3.5-5.1); Protein, Total 6.4 g/dL (6.4-8.2); Sodium Level 140 mmol/L (136-145); Thyroid Stim Hormone (TSH) 3.86 uIU/mL (0.358-3.74); Triglycerides 169 mg/dL; Very Low Density Lipoprotein 34 mg/dL (5-40)
== END | disposition home or self-care (01) ==
LOC: MFPLAB 08:17
PROVIDERS: PCP Family Medicine; Visit Provider Family Medicine
DX: I10 Essential (primary) hypertension (principal); M85.80 Other specified disorders of bone density and structure, unspecified site
CPT/HCPCS: 36415; 80053; 80061; 81001; 82306; 83735; 84443; 85025

== ENCOUNTER → 2024-01-26 | Outpatient (CLI) | payer MEDICARE, OTHER, SELFPAY ==
--- NOTE | 2024-01-26 08:41 | RAD_ITS ---
INDICATION: PAIN EXAMINATION/TECHNIQUE: X-RAY - XR Spine Thoracic 2 Views COMPARISON: : No relevant prior comparison study available FINDINGS: VERTEBRAE: Preserved vertebral body height. No fracture. No spondylolisthesis. Preservation of the normal thoracic kyphosis. No significant facet arthropathy. DISCS: Multilevel disc space narrowing and minimal marginal osteophyte formation most notable in the mid thoracic spine. INCLUDED CHEST/ABDOMEN: No acute abnormalities. RAD/Thoracic Spine 2 Views IMPRESSION: 1. No evidence of thoracic spinal fracture or spondylolisthesis. 2. Mild chronic multilevel disc space narrowing and minimal endplate sclerosis and osteophyte formation. Electronically Signed: Talat Burns MD at 17:15 EST ,
--- OUTSIDE RECORDS SUMMARY | 2024-01-26 09:08 | XMS RPT_ITS | CCD ---
Author Name Unknown Address [address] [place] [address] Organization [facility] Care Team Providers Care De Icer Installer Name Role Phone Suri Tyler Primary Care Provider Results Test Name Value Interpretation Reference Range Facil ity Vital Signs Date Time Vital Sign Value Performing Clinician Zaida madrid 08-28-2020 10:52-0400 BMI (Body Mass Index) 26.47 kg/m2 [place], [place] 08-28-2020 10:52-0400 Body weight 74.39 kg [place], [place] 08-28-2020 10:52-0400 Height 167.6 cm [place] Encounters Encounter Date Encounter Type Care [...] ant neoplasm of breast Breast cancer screen [place], [place] Start: 07-29-2021 Influenza vaccination Flu vaccine (# 1) [facility] Start: 07-29-2020 Influenza vaccination Flu vaccine (# 1) [place], [place] Start: 07-29-2019 Influenza vaccination Flu vaccine (# 1) [place], [place] Start: 07-08-2017 Breast cancer screen Breast cancer s creen [place], [place] Start: 2007 Colon cancer screen colonoscopy Colon cancer screen colonoscopy [place], [place] Start: 2007 Screening for malign ant neoplasm of colon Colon cancer screen colonoscopy [place], [place] Start: 2007 Shingles Vaccine (1 of 2) Pulliam gles Vaccine (1 of 2) [facility] Start: 2002 Screening for malign ant neoplasm of colon [facility] Start: 1997 Diabetes screen Diabetes screen [place], [place] Start: 1997 Lipid panel Lipid screen [facility] Start: 1997 Lipid screen Lipid screen [place], [place] Start: 1987 Screening for malign ant neoplasm of cervix [facility] Start: 1978 Cervical cancer screen Cervical canc er screen [place], [place] Start: 1978 Screening for malign ant neoplasm of cervix [facility] Start: 1976 DTaP/Tdap/Td vaccine (1 - Tdap) DTaP/Tdap/Td vaccine (1 - Tdap) [facility] Start: 1973 COVID-19 Vaccine (1 of 2) COVI D-19 Vaccine (1 of 2) [facility] Work Phone: Start: 1972 HIV screen HIV screen [place], [place] Start: 1972 HIV screening HIV screen [facility] Start: 1969 Depression Screen Depression Screen [facility] Start: 1962 COVID-19 Vaccine (1) COVID-19 Vaccin e (1) [facility] Start: 1957 Hepatitis C screen Hepatitis C scree n [place], [place] Start: 1957 Hepatitis C screening Hepatitis C chiqui matias [facility] End: 09-18-2019 Screening digital breast tomosynthesis bi Vicenta Kurt Digital Screen Bilateral Imaging Routine Once for 1 Occurrences starting 09/18/2019 until 09/18/2019 [facility] Social History Date Type Detail Facility Tobacco [facility] stat [facility]: 1955 Sex Assigned At Not on file [place] Tobacco smoking stat [facility] Tobacco smoking consumption unknown [facility] Work Phone: Advance Directives No Advanced Directives Records FoundDocuments on File Type Date Recorded Patient Patient Liaison Expl anation ACP-Advance Directive ACP-Power of Screening Specialist Documents on File Type Date Recorded Patient Patient Liaison Expl anation Advance Directives and Living Will Power of Screening Specialist Summary Purpose Family History No Family History [...] BE BASED ON THE PRIMARY CLINICAL RECORDS. [employer] [facility]. provides no warranty or guarantee of the accuracy or completeness of information in this document.
== END | disposition home or self-care (01) ==
LOC: MTRAD 08:37
PROVIDERS: PCP Family Medicine; Referring Provider Anesthesiology Pain Medicine; Visit Provider Anesthesiology Pain Medicine
DX: M51.34 Other intervertebral disc degeneration, thoracic region (principal); M54.14 Radiculopathy, thoracic region
CPT/HCPCS: 72070; 72074

== ENCOUNTER → 2024-02-24 | Outpatient (CLI) | payer MEDICARE, OTHER, SELFPAY ==
[2024-02-24 12:21] LABS: Absolute Lymphocyte Count 1.87 X10^3/uL (0.83-4.51); Absolute Neutrophil Count 1.6 X10^3/uL (2.0-7.7); Basophil# 0.03 X10^3/uL; Basophil% 0.8 % (0-1); Eosinophil# 0.07 X10^3/uL; Eosinophils% 1.8 % (0-5); Hematocrit 40.6 % (37-47); Hemoglobin 13.1 g/dL (12.0-15.0); Lymphocyte # 1.87 X10^3/ul (0.83-4.51); Lymphocyte % 48.2 % (19-41); Mean Corp Hgb Conc 32.3 g/dL (32-36); Mean Corpuscular Hgb 32.8 pg (27.0-32.0); Mean Corpuscular Volume 101.5 fL (81-99); Mean Platelet Vol. 10.9 fl (6.2-12.0); Monocyte# 0.35 X10^3/uL; NRBC Flagged by Analyzer 0 % (0-5); Neutrophil # 1.55 X10^3/uL (2.7-7.7); Neutrophil % 39.9 % (47-70); Platelet Count 254 K/mm3 (150-450); RBC Distribution Width CV 13.4 % (11.6-14.6); RBC Distribution Width SD 50.5 fl (35.1-43.9); White Blood Count 3.9 K/mm3 (4.4-11.0)
[2024-02-24 12:24] LABS: Color, Urine Yellow (Yellow); Glucose, Dipstick Normal (Normal); Ketone-Dipstick Negative (Negative); Leukocyte Esterase-Dipstick Negative /ul (Negative); Nitrite-Dipstick Negative (Negative); Occult Blood-Urine Negative /ul (Negative); Protein-Dipstick Negative (Negative); Specific Gravity, Urine 1.005 (1.002-1.030); Urine Bilirubin Dipstick Negative (Negative); Urine Clarity Clear (Clear); Urine Urobilinogen Normal (Normal)
[2024-02-24 12:32] LABS: Vitamin D,25 Hydroxy 35.1 ng/mL
[2024-02-24 12:55] LABS: ALB/GLOB Ratio 1.4 RATIO (0.9-2.4); AST(SGOT) 20 U/L (15-37); Alanine Aminotransfer ALT/SGPT 20 U/L (13-56); Albumin, Serum 3.9 g/dL (3.2-5.0); Alkaline Phosphatase 51 U/L (45-117); Anion Gap 6 (5-15); BUN 7 mg/dL (7-18); BUN/Creat Ratio 11.2 RATIO (10-20); Calcium,Total 9.2 mg/dL (8.5-10.1); Chloride 109 mmol/L (98-107); Cholesterol 202 mg/dL (200); Creatinine, Serum 0.63 mg/dL (0.55-1.02); EST Glomerular Filtration Rate 101 mL/min (>60); Est Glom Filt Rate - Afr Amer 122 mL/min (>60); Globulin 2.8 g/dL (2.2-4.2); Glucose 92 mg/dL (74-106); High Density Lipoprotein 76 mg/dL; Protein, Total 6.7 g/dL (6.4-8.2); Sodium Level 141 mmol/L (136-145); Thyroid Stim Hormone (TSH) 4.65 uIU/mL (0.358-3.74); Triglycerides 202 mg/dL; Very Low Density Lipoprotein 40 mg/dL (5-40)
== END | disposition home or self-care (01) ==
LOC: MTLAB 10:15
PROVIDERS: PCP Family Medicine; Referring Provider Internal Medicine Rheumatology; Visit Provider Internal Medicine Rheumatology
DX: M06.4 Inflammatory polyarthropathy (principal); M79.7 Fibromyalgia; M15.9 Polyosteoarthritis, unspecified; M47.897 Other spondylosis, lumbosacral region; E03.9 Hypothyroidism, unspecified; M85.80 Other specified disorders of bone density and structure, unspecified site; Z79.899 Other long term (current) drug therapy; Z85.038 Personal history of other malignant neoplasm of large intestine
CPT/HCPCS: 36415; 80053; 80061; 81002; 82306; 84443; 85025

== ENCOUNTER → 2024-03-08 | Outpatient (CLI) | payer MEDICARE, OTHER, SELFPAY ==
[2024-03-08 11:18] LABS: CPK Total, Creatine Kinase 50 U/L (26-192); Ferritin 69 ng/mL (8-252); Magnesium 2.1 mg/dL (1.6-2.6); T4 Free Direct 1.02 ng/dL (0.76-1.46)
[2024-03-09 17:07] LABS: Thyroglobulin Antibody < 1.0 IU/mL (0.0-0.9); Thyroid Peroxidase AB 32 IU/mL (0-34)
== END | disposition home or self-care (01) ==
LOC: MFPLAB 08:17
PROVIDERS: PCP Family Medicine; Visit Provider Family Medicine
DX: M79.10 Myalgia, unspecified site (principal); R78.89 Finding of other specified substances, not normally found in blood
CPT/HCPCS: 36415; 82550; 82728; 83735; 84439; 86376; 86800

== ENCOUNTER → 2024-03-15 | Outpatient (CLI) | payer MEDICARE, OTHER, SELFPAY ==
--- NOTE | 2024-03-15 13:27 | RAD_ITS ---
STUDY: X-RAY - CERVICAL SPINE REASON FOR EXAM: Female, 68 years old. PAIN TECHNIQUE: 5 view(s) of the cervical spine were obtained. COMPARISON: None FINDINGS: Normal anterior atlantoaxial articulation. Normal odontoid process. Normal cervical lordosis. 2 mm retrolisthesis of C4 on C5 and C5 on C6. Normal vertebral bodies and endplates. There is multi-level degenerative disc disease with multilevel disc space narrowing. Normal visualized intervertebral neuroforamina. The soft tissue structures are unremarkable. RAD/Cerv Spine 4 or 5 Views IMPRESSION: Degenerative disc disease with retrolisthesis of C4 on C5 and C5 on C6. MRI may be useful. Electronically Signed: Talat Cardoso MD at 19:59 EDT ,
== END | disposition home or self-care (01) ==
LOC: MTRAD 13:25
PROVIDERS: PCP Family Medicine; Referring Provider Clinical Nurse Specialist Adult Health; Visit Provider Clinical Nurse Specialist Adult Health
DX: M47.812 Spondylosis without myelopathy or radiculopathy, cervical region (principal)
CPT/HCPCS: 72050

== ENCOUNTER → 2024-06-15 | Outpatient (CLI) | payer MEDICARE, OTHER, SELFPAY ==
[2024-06-15 10:13] LABS: Bacteria 0 SEEN /hpf (None Seen); Mucous, Urine 0 SEEN /hpf (<or=2+); Red Blood Cells-Urine 0 SEEN /hpf (0-5); Squamous Epithelial Cells - UA 0 SEEN /hpf (5-10); White Blood Cells 0 SEEN /hpf (0-5)
[2024-06-15 12:07] LABS: Absolute Lymphocyte Count 1.51 X10^3/uL (0.83-4.51); Absolute Neutrophil Count 2.6 X10^3/uL (2.0-7.7); Basophil# 0.03 X10^3/uL; Basophil% 0.7 % (0-1); Color, Urine Yellow (Yellow); Eosinophil# 0.06 X10^3/uL; Eosinophils% 1.3 % (0-5); Glucose, Dipstick Normal (Normal); Hematocrit 42.2 % (37-47); Hemoglobin 13.7 g/dL (12.0-15.0); Ketone-Dipstick Negative (Negative); Leukocyte Esterase-Dipstick Negative /ul (Negative); Lymphocyte # 1.51 X10^3/ul (0.83-4.51); Lymphocyte % 33.3 % (19-41); Mean Corp Hgb Conc 32.5 g/dL (32-36); Mean Corpuscular Hgb 32.9 pg (27.0-32.0); Mean Corpuscular Volume 101.4 fL (81-99); Mean Platelet Vol. 10.3 fl (6.2-12.0); Monocyte# 0.38 X10^3/uL; Monocyte% 8.4 % (0-10); NRBC Flagged by Analyzer 0 % (0-5); Neutrophil # 2.55 X10^3/uL (2.7-7.7); Neutrophil % 56.1 % (47-70); Nitrite-Dipstick Negative (Negative); Occult Blood-Urine Negative /ul (Negative); Platelet Count 247 K/mm3 (150-450); Protein-Dipstick Negative (Negative); RBC Distribution Width CV 13.4 % (11.6-14.6); RBC Distribution Width SD 50.3 fl (35.1-43.9); Red Blood Count 4.16 M/mm3 (4.2-5.4); Urine Bilirubin Dipstick Negative (Negative); Urine Clarity Clear (Clear); Urine Urobilinogen Normal (Normal); White Blood Count 4.5 K/mm3 (4.4-11.0)
[2024-06-15 12:21] LABS: Vitamin D,25 Hydroxy 30.4 ng/mL
[2024-06-15 12:33] LABS: ALB/GLOB Ratio 1.5 RATIO (0.9-2.4); AST(SGOT) 21 U/L (15-37); Alanine Aminotransfer ALT/SGPT 24 U/L (13-56); Albumin, Serum 4.1 g/dL (3.2-5.0); Alkaline Phosphatase 47 U/L (45-117); Anion Gap 7 (5-15); BUN 18 mg/dL (7-18); BUN/Creat Ratio 26.1 RATIO (10-20); Calcium,Total 9.9 mg/dL (8.5-10.1); Chloride 107 mmol/L (98-107); Cholesterol 318 mg/dL (200); Creatinine, Serum 0.69 mg/dL (0.55-1.02); EST Glomerular Filtration Rate 90 mL/min (>60); Est Glom Filt Rate - Afr Amer 109 mL/min (>60); Globulin 2.7 g/dL (2.2-4.2); Glucose 93 mg/dL (74-106); High Density Lipoprotein 73 mg/dL; Magnesium 2.1 mg/dL (1.6-2.6); Potassium 3.8 mmol/L (3.5-5.1); Protein, Total 6.8 g/dL (6.4-8.2); Sodium Level 140 mmol/L (136-145); Thyroid Stim Hormone (TSH) 2.48 uIU/mL (0.358-3.74); Triglycerides 156 mg/dL; Very Low Density Lipoprotein 31 mg/dL (5-40)
== END | disposition home or self-care (01) ==
LOC: MFPLAB 10:10
PROVIDERS: PCP Family Medicine; Visit Provider Family Medicine
DX: I10 Essential (primary) hypertension (principal); E03.8 Other specified hypothyroidism; E78.5 Hyperlipidemia, unspecified; M85.80 Other specified disorders of bone density and structure, unspecified site
CPT/HCPCS: 36415; 80053; 80061; 81001; 82306; 83735; 84439; 84443; 85025

== ENCOUNTER → 2024-06-29 | Outpatient (CLI) | payer MEDICARE, OTHER, SELFPAY ==
--- NOTE | 2024-06-29 09:48 | BI_ITS ---
MAMMOGRAPHY - BILATERAL SCREENING REASON FOR EXAM: Female, 68 years old. Routine annual screening examination. PERTINENT HISTORY: Sisters with breast cancer. Aunt with breast cancer. Remote left excisional breast biopsy. TECHNIQUE: Digital bilateral breast leonor (3D mammographic acquisition) in the CC and MLO projections. 2-D mediolateral oblique (MLO) and craniocaudad (CC) views of both breasts were obtained. CAD: Full Field Digital Mammography with Computer Added Detection was performed. COMPARISON: Comparison is made with prior study dated June 20, 2023. FINDINGS: Breast Composition: There are scattered areas of fibroglandular density. There are no dominant masses or suspicious calcifications. No other significant abnormalities are identified. There has been no significant change since the prior study. BI/SCRN MAMM (CAD)W/LEONOR BILAT IMPRESSION: Stable bilateral screening mammogram. Yearly follow-up mammogram recommended. (A) ASSESSMENT CATEGORY: BIRADS Category 1: Negative. A letter regarding these results will be sent to the patient by the facility within 30 days. Approximately 10% of breast cancers are not detected by mammography. A normal mammogram should not delay biopsy of a clinically suspicious abnormality. [id number] Electronically Signed: Law Gaxiola MD at 10:45 EDT ,
== END | disposition home or self-care (01) ==
LOC: OPBI 09:47
PROVIDERS: PCP Family Medicine; Referring Provider Family Medicine; Visit Provider Family Medicine
DX: Z12.31 Encounter for screening mammogram for malignant neoplasm of breast (principal)
CPT/HCPCS: 77063; 77067

== ENCOUNTER → 2024-07-09 | Outpatient (CLI) | payer MEDICARE, OTHER, SELFPAY ==
[2024-07-09 15:14] LABS: Absolute Lymphocyte Count 1.92 X10^3/uL (0.83-4.51); Absolute Neutrophil Count 2.6 X10^3/uL (2.0-7.7); Basophil# 0.04 X10^3/uL; Basophil% 0.8 % (0-1); Eosinophil# 0.07 X10^3/uL; Eosinophils% 1.4 % (0-5); Hematocrit 41.2 % (37-47); Hemoglobin 13.3 g/dL (12.0-15.0); Lymphocyte # 1.92 X10^3/ul (0.83-4.51); Lymphocyte % 38.4 % (19-41); Mean Corp Hgb Conc 32.3 g/dL (32-36); Mean Corpuscular Hgb 32.2 pg (27.0-32.0); Mean Corpuscular Volume 99.8 fL (81-99); Mean Platelet Vol. 10.3 fl (6.2-12.0); Monocyte# 0.37 X10^3/uL; Monocyte% 7.4 % (0-10); NRBC Flagged by Analyzer 0 % (0-5); Neutrophil # 2.59 X10^3/uL (2.7-7.7); Neutrophil % 51.8 % (47-70); Platelet Count 218 K/mm3 (150-450); RBC Distribution Width CV 12.7 % (11.6-14.6); RBC Distribution Width SD 46.9 fl (35.1-43.9); Red Blood Count 4.13 M/mm3 (4.2-5.4)
[2024-07-09 16:01] LABS: ALB/GLOB Ratio 1.4 RATIO (0.9-2.4); AST(SGOT) 25 U/L (15-37); Alanine Aminotransfer ALT/SGPT 25 U/L (13-56); Albumin, Serum 3.8 g/dL (3.2-5.0); Alkaline Phosphatase 49 U/L (45-117); Anion Gap 5 (5-15); BUN 11 mg/dL (7-18); BUN/Creat Ratio 14.7 RATIO (10-20); Calcium,Total 9.3 mg/dL (8.5-10.1); Chloride 106 mmol/L (98-107); Creatinine, Serum 0.75 mg/dL (0.55-1.02); EST Glomerular Filtration Rate 82 mL/min (>60); Est Glom Filt Rate - Afr Amer 100 mL/min (>60); Globulin 2.8 g/dL (2.2-4.2); Glucose 85 mg/dL (74-106); Potassium 3.6 mmol/L (3.5-5.1); Protein, Total 6.6 g/dL (6.4-8.2); Sodium Level 139 mmol/L (136-145)
== END | disposition home or self-care (01) ==
PROVIDERS: PCP Family Medicine; Referring Provider Internal Medicine Rheumatology; Visit Provider Internal Medicine Rheumatology
DX: M06.4 Inflammatory polyarthropathy (principal); M79.7 Fibromyalgia; Z79.899 Other long term (current) drug therapy
CPT/HCPCS: 36415; 80053; 85025

== ENCOUNTER → 2024-10-08 | Outpatient (CLI) | payer MEDICARE, OTHER, SELFPAY ==
[2024-10-08 12:17] LABS: Absolute Lymphocyte Count 2.32 X10^3/uL (0.83-4.51); Absolute Neutrophil Count 2.1 X10^3/uL (2.0-7.7); Basophil# 0.04 X10^3/uL; Basophil% 0.8 % (0-1); Eosinophil# 0.05 X10^3/uL; Hematocrit 41.3 % (37-47); Hemoglobin 13.7 g/dL (12.0-15.0); Lymphocyte # 2.32 X10^3/ul (0.83-4.51); Mean Corp Hgb Conc 33.2 g/dL (32-36); Mean Corpuscular Hgb 32.5 pg (27.0-32.0); Mean Corpuscular Volume 98.1 fL (81-99); Mean Platelet Vol. 9.9 fl (6.2-12.0); Monocyte# 0.43 X10^3/uL; Monocyte% 8.7 % (0-10); NRBC Flagged by Analyzer 0 % (0-5); Neutrophil # 2.09 X10^3/uL (2.7-7.7); Neutrophil % 42.3 % (47-70); Platelet Count 293 K/mm3 (150-450); RBC Distribution Width CV 14.6 % (11.6-14.6); Red Blood Count 4.21 M/mm3 (4.2-5.4); White Blood Count 4.9 K/mm3 (4.4-11.0)
[2024-10-08 12:45] LABS: Vitamin D,25 Hydroxy 31.8 ng/mL
[2024-10-08 13:17] LABS: ALB/GLOB Ratio 1.3 RATIO (0.9-2.4); AST(SGOT) 20 U/L (15-37); Alanine Aminotransfer ALT/SGPT 20 U/L (13-56); Alkaline Phosphatase 59 U/L (45-117); Anion Gap 8 (5-15); BUN 12 mg/dL (7-18); BUN/Creat Ratio 16.1 RATIO (10-20); Calcium,Total 9.4 mg/dL (8.5-10.1); Chloride 107 mmol/L (98-107); Cholesterol 341 mg/dL (200); Creatinine, Serum 0.74 mg/dL (0.55-1.02); EST Glomerular Filtration Rate 83 mL/min (>60); Est Glom Filt Rate - Afr Amer 100 mL/min (>60); Glucose 87 mg/dL (74-106); High Density Lipoprotein 80 mg/dL; Potassium 3.6 mmol/L (3.5-5.1); Sodium Level 141 mmol/L (136-145); T4 Free Direct 0.95 ng/dL (0.76-1.46); Triglycerides 184 mg/dL; Very Low Density Lipoprotein 37 mg/dL (5-40)
== END | disposition home or self-care (01) ==
PROVIDERS: PCP Family Medicine; Referring Provider Internal Medicine Rheumatology; Visit Provider Internal Medicine Rheumatology
DX: M06.4 Inflammatory polyarthropathy (principal); Z79.899 Other long term (current) drug therapy; M79.7 Fibromyalgia; I10 Essential (primary) hypertension; M85.80 Other specified disorders of bone density and structure, unspecified site; E03.8 Other specified hypothyroidism
CPT/HCPCS: 36415; 80053; 80061; 82306; 84439; 84443; 85025

== ENCOUNTER → 2024-12-27 | Outpatient (CLI) | payer MEDICARE, OTHER, SELFPAY ==
[2024-12-27 12:45] LABS: Absolute Lymphocyte Count 1.67 X10^3/uL (0.83-4.51); Absolute Neutrophil Count 1.4 X10^3/uL (2.0-7.7); Basophil# 0.03 X10^3/uL; Basophil% 0.9 % (0-1); Eosinophil# 0.05 X10^3/uL; Eosinophils% 1.5 % (0-5); Hematocrit 40.1 % (37-47); Lymphocyte # 1.67 X10^3/ul (0.83-4.51); Mean Corp Hgb Conc 32.4 g/dL (32-36); Mean Corpuscular Hgb 32.7 pg (27.0-32.0); Mean Platelet Vol. 9.8 fl (6.2-12.0); Monocyte% 8.8 % (0-10); NRBC Flagged by Analyzer 0 % (0-5); Neutrophil # 1.36 X10^3/uL (2.7-7.7); Neutrophil % 39.8 % (47-70); Platelet Count 247 K/mm3 (150-450); RBC Distribution Width CV 13.4 % (11.6-14.6); Red Blood Count 3.97 M/mm3 (4.2-5.4); White Blood Count 3.4 K/mm3 (4.4-11.0)
[2024-12-27 12:48] LABS: ALB/GLOB Ratio 1.3 RATIO (0.9-2.4); AST(SGOT) 24 U/L (15-37); Alanine Aminotransfer ALT/SGPT 18 U/L (13-56); Albumin, Serum 3.9 g/dL (3.2-5.0); Alkaline Phosphatase 53 U/L (45-117); Anion Gap 3 (5-15); BUN 13 mg/dL (7-18); Calcium,Total 9.2 mg/dL (8.5-10.1); Chloride 108 mmol/L (98-107); Cholesterol 231 mg/dL (200); Creatinine, Serum 0.72 mg/dL (0.55-1.02); EST Glomerular Filtration Rate 85 mL/min (>60); Est Glom Filt Rate - Afr Amer 103 mL/min (>60); Globulin 2.9 g/dL (2.2-4.2); Glucose 94 mg/dL (74-106); High Density Lipoprotein 76 mg/dL; Magnesium 2.3 mg/dL (1.6-2.6); Protein, Total 6.8 g/dL (6.4-8.2); Sodium Level 140 mmol/L (136-145); T4 Free Direct 0.92 ng/dL (0.76-1.46); Triglycerides 147 mg/dL; Very Low Density Lipoprotein 29 mg/dL (5-40)
[2024-12-27 15:47] LABS: Vitamin D,25 Hydroxy 38.9 ng/mL
== END | disposition home or self-care (01) ==
LOC: MTLAB 11:00
PROVIDERS: PCP Family Medicine; Referring Provider Internal Medicine Rheumatology; Visit Provider Internal Medicine Rheumatology
DX: M06.4 Inflammatory polyarthropathy (principal); Z79.899 Other long term (current) drug therapy; M79.7 Fibromyalgia; M85.80 Other specified disorders of bone density and structure, unspecified site; I10 Essential (primary) hypertension; E03.8 Other specified hypothyroidism
CPT/HCPCS: 36415; 80053; 80061; 82306; 83735; 84439; 84443; 85025

== ENCOUNTER → 2025-01-22 | Outpatient (CLI) | payer MEDICARE, OTHER, SELFPAY ==
[2025-01-22 09:28] LABS: Bacteria 0 SEEN /hpf (None Seen); Mucous, Urine 0 SEEN /hpf (<or=2+); Squamous Epithelial Cells - UA 0 SEEN /hpf (5-10)
[2025-01-22 11:03] LABS: Absolute Lymphocyte Count 1.65 X10^3/uL (0.83-4.51); Absolute Neutrophil Count 2.5 X10^3/uL (2.0-7.7); Basophil# 0.03 X10^3/uL; Basophil% 0.6 % (0-1); Eosinophil# 0.12 X10^3/uL; Eosinophils% 2.6 % (0-5); Hematocrit 40.9 % (37-47); Hemoglobin 13.1 g/dL (12.0-15.0); Lymphocyte # 1.65 X10^3/ul (0.83-4.51); Lymphocyte % 35.1 % (19-41); Mean Corpuscular Hgb 32.7 pg (27.0-32.0); Monocyte# 0.39 X10^3/uL; Monocyte% 8.3 % (0-10); NRBC Flagged by Analyzer 0 % (0-5); Neutrophil # 2.49 X10^3/uL (2.7-7.7); Platelet Count 254 K/mm3 (150-450); RBC Distribution Width CV 13.5 % (11.6-14.6); RBC Distribution Width SD 50.6 fl (35.1-43.9); Red Blood Count 4.01 M/mm3 (4.2-5.4); White Blood Count 4.7 K/mm3 (4.4-11.0)
[2025-01-22 11:11] LABS: Color, Urine Yellow (Yellow); Glucose, Dipstick Normal (Normal); Ketone-Dipstick Negative (Negative); Leukocyte Esterase-Dipstick 25 /ul (Negative); Nitrite-Dipstick Negative (Negative); Occult Blood-Urine Negative /ul (Negative); Protein-Dipstick Negative (Negative); Urine Bilirubin Dipstick Negative (Negative); Urine Clarity Clear (Clear); Urine Urobilinogen Normal (Normal)
[2025-01-22 11:18] LABS: Red Blood Cells-Urine 0 SEEN /hpf (0-5); White Blood Cells 0-5 SEEN /hpf (0-5)
[2025-01-22 17:24] LABS: ALB/GLOB Ratio 1.4 RATIO (0.9-2.4); AST(SGOT) 25 U/L (<=31); Alanine Aminotransfer ALT/SGPT 22 U/L (<=34); Albumin, Serum 4.1 g/dL (3.4-4.8); Alkaline Phosphatase 92 U/L (35-104); Anion Gap 10 (5-15); BUN 22 mg/dL (4-19); BUN/Creat Ratio 19.1 RATIO (10-20); Calcium 9.4 mg/dL (7.6-11.0); Carbon Dioxide 20.7 mmol/L (22.0-29.0); Chloride 110 mmol/L (96-108); Cholesterol 243 mg/dL (<=200); Creatinine, Serum 1.2 mg/dL (0.6-1.0); EST Glomerular Filtration Rate 52 (>60); Globulin 2.9 g/dL (2.2-4.2); Glucose 74 mg/dL (70-99); High Density Lipoprotein 55 mg/dL; Potassium 4.3 mmol/L (3.3-5.1); Sodium Level 141 mmol/L (133-145); Total Bilirubin 0.47 mg/dL (0.00-1.30); Triglycerides 95 mg/dL; Very Low Density Lipoprotein 19 mg/dL (5-40)
[2025-01-22 18:10] LABS: Vitamin D,25 Hydroxy 18.5 ng/mL (30-100)
== END | disposition home or self-care (01) ==
LOC: MFPLAB 09:18
PROVIDERS: PCP Family Medicine; Referring Provider Family Medicine; Visit Provider Family Medicine
DX: I10 Essential (primary) hypertension (principal); M85.80 Other specified disorders of bone density and structure, unspecified site; E03.8 Other specified hypothyroidism
CPT/HCPCS: 36415; 80053; 80061; 81001; 82306; 84439; 84443; 85025

== ENCOUNTER → 2025-01-30 | Outpatient (CLI) | payer MEDICARE, OTHER, SELFPAY ==
[2025-01-30 15:33] LABS: Anion Gap 10 (5-15); BUN 12 mg/dL (4-19); Calcium,Total 9.3 mg/dL (7.6-11.0); Carbon Dioxide 25.6 mmol/L (21.0-32.0); Chloride 105 mmol/L (98-108); Creatinine, Serum 0.69 mg/dL (0.70-1.20); EST Glomerular Filtration Rate 95 (>60); Glucose 88 mg/dL (70-99); Potassium 4.2 mmol/L (3.3-5.1); Sodium Level 141 mmol/L (133-145)
== END | disposition home or self-care (01) ==
LOC: MTLAB 12:50
PROVIDERS: PCP Family Medicine; Referring Provider Family Medicine; Visit Provider Family Medicine
DX: R94.4 Abnormal results of kidney function studies (principal)
CPT/HCPCS: 36415; 80048

== ENCOUNTER → 2025-02-26 | Outpatient (CLI) | payer MEDICARE, OTHER, SELFPAY ==
[2025-02-26 18:14] LABS: Absolute Lymphocyte Count 2.02 X10^3/uL (0.83-4.51); Absolute Neutrophil Count 4.3 X10^3/uL (2.0-7.7); Basophil# 0.06 X10^3/uL; Basophil% 0.8 % (0-1); Eosinophil# 0.44 X10^3/uL; Eosinophils% 6.1 % (0-5); Hematocrit 40.7 % (37-47); Hemoglobin 13.4 g/dL (12.0-15.0); Lymphocyte # 2.02 X10^3/ul (0.83-4.51); Mean Corp Hgb Conc 32.9 g/dL (32-36); Mean Corpuscular Volume 100.2 fL (81-99); Mean Platelet Vol. 10.3 fl (6.2-12.0); Monocyte# 0.43 X10^3/uL; NRBC Flagged by Analyzer 0 % (0-5); Neutrophil # 4.26 X10^3/uL (2.7-7.7); Platelet Count 246 K/mm3 (150-450); RBC Distribution Width CV 13.3 % (11.6-14.6); RBC Distribution Width SD 49.1 fl (35.1-43.9); Red Blood Count 4.06 M/mm3 (4.2-5.4); White Blood Count 7.2 K/mm3 (4.4-11.0)
[2025-02-26 21:37] LABS: ALB/GLOB Ratio 1.7 RATIO (0.9-2.4); AST(SGOT) 19 U/L (<=31); Alanine Aminotransfer ALT/SGPT 11 U/L (<=34); Albumin, Serum 4.2 g/dL (3.4-4.8); Alkaline Phosphatase 56 U/L (35-104); Anion Gap 12 (5-15); BUN 10 mg/dL (4-19); BUN/Creat Ratio 14.8 RATIO (10-20); Calcium,Total 9.9 mg/dL (7.6-11.0); Carbon Dioxide 24.8 mmol/L (21.0-32.0); Chloride 103 mmol/L (98-108); EST Glomerular Filtration Rate 95 (>60); Globulin 2.5 g/dL (2.2-4.2); Glucose 94 mg/dL (70-99); Protein, Total 6.8 g/dL (5.9-8.4); Sodium Level 140 mmol/L (133-145); Total Bilirubin 0.29 mg/dL (0.00-1.30)
== END | disposition home or self-care (01) ==
LOC: MTLAB 14:29
PROVIDERS: PCP Family Medicine; Referring Provider Internal Medicine Rheumatology; Visit Provider Internal Medicine Rheumatology
DX: M06.4 Inflammatory polyarthropathy (principal); Z79.899 Other long term (current) drug therapy; M79.7 Fibromyalgia; M15.9 Polyosteoarthritis, unspecified
CPT/HCPCS: 36415; 80053; 85025

== ENCOUNTER → 2025-05-24 | Outpatient (CLI) | payer MEDICARE, OTHER, SELFPAY ==
[2025-05-24 15:00] LABS: Absolute Neutrophil Count 1.9 X10^3/uL (2.0-7.7); Basophil# 0.04 X10^3/uL; Eosinophil# 0.08 X10^3/uL; Eosinophils% 2.1 % (0-5); Hematocrit 38.9 % (37-47); Hemoglobin 12.6 g/dL (12.0-15.0); Lymphocyte % 36.5 % (19-41); Mean Corp Hgb Conc 32.4 g/dL (32-36); Mean Corpuscular Hgb 32.2 pg (27.0-32.0); Mean Corpuscular Volume 99.5 fL (81-99); Mean Platelet Vol. 10.2 fl (6.2-12.0); Monocyte# 0.37 X10^3/uL; Monocyte% 9.6 % (0-10); NRBC Flagged by Analyzer 0 % (0-5); Neutrophil # 1.94 X10^3/uL (2.7-7.7); Neutrophil % 50.5 % (47-70); Platelet Count 243 K/mm3 (150-450); RBC Distribution Width CV 13.8 % (11.6-14.6); RBC Distribution Width SD 50.4 fl (35.1-43.9); Red Blood Count 3.91 M/mm3 (4.2-5.4); White Blood Count 3.8 K/mm3 (4.4-11.0)
[2025-05-24 15:16] LABS: ALB/GLOB Ratio 1.8 RATIO (0.9-2.4); AST(SGOT) 22 U/L (<=31); Alanine Aminotransfer ALT/SGPT 13 U/L (<=34); Albumin, Serum 4.2 g/dL (3.4-4.8); Alkaline Phosphatase 54 U/L (35-104); Anion Gap 11 (5-15); BUN 8 mg/dL (4-19); Calcium,Total 9.2 mg/dL (7.6-11.0); Chloride 107 mmol/L (98-108); Creatinine, Serum 0.63 mg/dL (0.70-1.20); EST Glomerular Filtration Rate 97 (>60); Globulin 2.3 g/dL (2.2-4.2); Glucose 96 mg/dL (70-99); Potassium 4.2 mmol/L (3.3-5.1); Protein, Total 6.5 g/dL (5.9-8.4); Sodium Level 142 mmol/L (133-145); Total Bilirubin 0.37 mg/dL (0.00-1.30)
== END | disposition home or self-care (01) ==
LOC: MTLAB 11:25
PROVIDERS: PCP Family Medicine; Referring Provider Internal Medicine Rheumatology; Visit Provider Internal Medicine Rheumatology
DX: M06.4 Inflammatory polyarthropathy (principal); Z79.899 Other long term (current) drug therapy; M79.7 Fibromyalgia; M15.9 Polyosteoarthritis, unspecified
CPT/HCPCS: 36415; 80053; 85025

== ENCOUNTER → 2025-06-03 | Outpatient (CLI) | payer MEDICARE, OTHER, SELFPAY | END | disposition home or self-care (01) | LOC: MTRAD 08:51 | PROVIDERS: PCP Family Medicine; Referring Provider Clinical Nurse Specialist Adult Health; Visit Provider Clinical Nurse Specialist Adult Health | DX: M51.369 Other intervertebral disc degeneration, 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 or lower extremity pain (principal) | CPT/HCPCS: 72110 ==

== ENCOUNTER → 2025-07-23 | Outpatient (CLI) | payer MEDICARE, OTHER, SELFPAY ==
--- NOTE | 2025-07-23 08:51 | RAD_ITS ---
PROCEDURE: CHEST PA AND LATERAL 07/23/2025 REASON FOR EXAM: CHEST PAIN TECHNIQUE: CHEST PA AND LATERAL COMPARISON: AP chest of 11/17/2021. RAD/Chest PA and Lateral IMPRESSION: Lungs appear clear of acute disease. No pleural effusion or pneumothorax is noted. The cardiomediastinal silhouette is stable, with a somewhat tortuous aorta note d. No evidence of cardiomegaly. Mild degenerative changes of the visualized spine and at least mild degenerativ e changes of the acromioclavicular joints are seen. No acute osseous change is noted. Reading Location: [place] [id number]
[2025-07-23 09:52] LABS: Mucous, Urine 0 SEEN /hpf (<or=2+); Red Blood Cells-Urine 0 SEEN /hpf (0-5); Squamous Epithelial Cells - UA 0 SEEN /hpf (5-10)
[2025-07-23 12:26] LABS: Hematocrit 41.0 % (37-47); Hemoglobin 13.2 g/dL (12.0-15.0); Immature Granulocytes Count 0.010 X10^3/uL (0.0-0.0); Mean Corp Hgb Conc 32.2 g/dL (32-36); Mean Corpuscular Volume 101.5 fL (81-99); Mean Platelet Vol. 9.9 fl (6.2-12.0); NRBC Flagged by Analyzer 0 % (0-5); Platelet Count 271 K/mm3 (150-450); RBC Distribution Width CV 14.0 % (11.6-14.6); RBC Distribution Width SD 52.9 fl (35.1-43.9); Red Blood Count 4.04 M/mm3 (4.2-5.4); White Blood Count 4.6 K/mm3 (4.4-11.0)
[2025-07-23 12:28] LABS: Color, Urine Yellow (Yellow); Glucose, Dipstick Normal (Normal); Ketone-Dipstick Negative (Negative); Leukocyte Esterase-Dipstick Negative /ul (Negative); Nitrite-Dipstick Negative (Negative); Occult Blood-Urine Negative /ul (Negative); Protein-Dipstick Negative (Negative); Specific Gravity, Urine 1.015 (1.002-1.030); Urine Bilirubin Dipstick Negative (Negative)
[2025-07-23 13:06] LABS: AST(SGOT) 25 U/L (<=31); Alanine Aminotransfer ALT/SGPT 16 U/L (<=34); Albumin, Serum 4.2 g/dL (3.4-4.8); Alkaline Phosphatase 53 U/L (35-104); Anion Gap 12 (5-15); BUN 9 mg/dL (4-19); BUN/Creat Ratio 13.1 RATIO (10-20); Calcium,Total 9.7 mg/dL (7.6-11.0); Carbon Dioxide 25.4 mmol/L (21.0-32.0); Chloride 104 mmol/L (98-108); Cholesterol 339 mg/dL (<=200); Globulin 2.4 g/dL (2.2-4.2); Glucose 79 mg/dL (70-99); Low Density Lipoprotein Calc. 222 mg/dL; Potassium 3.9 mmol/L (3.3-5.1); Triglycerides 221 mg/dL; Very Low Density Lipoprotein 44 mg/dL (5-40); Vitamin D,25 Hydroxy 41.2 ng/mL (30-100); cholesterol:hdl ratio screen 4.67
== END | disposition home or self-care (01) ==
PROVIDERS: PCP Family Medicine; Referring Provider Family Medicine; Visit Provider Family Medicine
DX: R07.9 Chest pain, unspecified (principal); E03.8 Other specified hypothyroidism; E55.9 Vitamin D deficiency, unspecified; I10 Essential (primary) hypertension; E78.5 Hyperlipidemia, unspecified
CPT/HCPCS: 36415; 71046; 80053; 80061; 81001; 82306; 84439; 84443; 85025

== ENCOUNTER → 2025-07-24 | Outpatient (CLI) | payer MEDICARE, OTHER, SELFPAY ==
--- OUTSIDE RECORDS SUMMARY | 2025-07-24 07:12 | XMS RPT_ITS | CCD ---
Author Organization [facility] Team Providers Care Keno Writer / Runner Name Role Phone Suri Castillo Primary Care Provider Alison WEST, Dr. Gaetano Murray Primary Care Provider Juju WEST, Dr. Ruiz Attending Provider Juju WEST, Dr. Ruiz Referring Provider Alison WEST, Dr. Gaetano Murray Attending Provider Alison WEST, Dr. Gaetano Murray Referring Provider [phone] Alison WEST, Dr. Gaetano Murray Primary Care Provider Juju WEST, Dr. Ruiz Attending Provider Juju WEST, Dr. Ruiz Referring Provider Alison WEST, Dr. Gaetano Murray Primary Care Provider Alison WEST, Dr. Gaetano Murray Attending Provider Alison WEST, Dr. Gaetano Murray Referring Provider Juju WEST, Dr. Ruiz Attending Provider Juju WEST, Dr. Ruiz Referring Provider Alison WEST, Dr. Gaetano Murray Primary Care Provider NP. Mercedes Crow Attending Provider [phone] NP. Mercedes Crow Referring Provider Sara Matute Attending Unavailable Gaetano Tilley Primary Care Unavailable Sara Matute Referring Unavailable Gaetano Tilley Primary Care Unavailable Mercedes Crow Attending Unavailable Mercedes Crow Referring Unavailable Gaetano Tilley Attending Unavailable Gaetano Tilley Referring Unavailable Gaetano Tilley Primary Care Unavailable Gaetano Tilley Primary Care Unavailable Gaetano Tilley Attending Unavailable Gaetano Tilley Primary Care Unavailable Gaetano Tilley Attending Unavailable Gaetano Tilley Referring Unavailable Sara Matute Referring Unavailable Gaetano Tilley Primary Care Unavailable Sara Matute Attending Unavailable Sara Matute Referring Unavailable Gaetano Tilley Primary Care Unavailable Sara Matute Attending Unavailable Gaetano Tilley Primary Care Unavailable Sara Matute Attending Unavailable Sara Matute Referring Unavailable Gaetano Tilley Attending Unavailable Gaetano Tilley Referring Unavailable Gaetano Tilley Primary Care Unavailable Sara Matute Attending Unavailable Gaetano Tilley Primary Care Unavailable Sara Matute Referring Unavailable Medications Current Medications Medication Drug Class(es) Dates Sig (Normalized) Sig (Original) acetaminophen 325 mg / HYDROcodone bitartrate 5 mg oral tablet (19 sources) Opioid Agonist Start: 11-08-2021 Hydrocodone-Acetam inophen 5-325 mg tablet Active 5 - 325 {tbl} PO THREE TIMES A DAY November 08, 2021 1:00am Start: 11-08-2021 take 1 tablet by nataliia th three times daily Hydrocodone-Acetaminophen Active 5 - 325 TABLET PO THREE TIMES A DAY November 08, 2021 1:00am dicyclomine hydrochloride 10 mg oral capsule (19 sources) Anticholinergic Start: 11-08-2021 take 1 capsule by mouth three times daily Dicyclomine 10 mg capsule Active 10 mg PO THREE TIMES A DAY November 08, 2021 1:00am escitalopram 10 mg oral tablet (19 sources) Serotonin Reuptake Inhibitor Start: 11-08-2021 take 1 tablet by mouth once daily Escitalopram Oxalate 10 mg tablet Active 10 mg PO DAILY November 08, 2021 1:00am folic acid 1 mg oral tablet (19 sources) Start: 11-08-2021 take 1 tablet by mouth once daily Folic Acid 1 mg tablet Active 1 mg PO DAILY November 08, 2021 1:00am gabapentin 100 mg oral capsule (19 sources) Anti-epileptic Agent Start: 11-08-2021 take 1 capsule by mouth three times daily Gabapentin 100 mg capsule Active 100 mg PO THREE TIMES A DAY November 08, 2021 1:00am levothyroxine sodium 0.05 mg oral tablet (19 sources) l-Thyroxine Start: 11-08-2021 take 1 tablet by mouth once daily Levothyroxine (Euthyrox) 50 mcg tablet Active 50 ug PO DAILY November 08, 2021 1:00am methotrexate 2.5 mg oral tablet (19 sources) Folate Analog Metabolic Inhibitor Start: 11-08-2021 Methotrexate Sodium 2.5 mg tablet Active 20 mg PO ONE TIME November 08, 2021 1:00am weekly Start: 11-08-2021 take 20 mg by mouth every week Methotrexate Sodium Active 20 MG PO ONE TIME November 08, 2021 1:00am weekly predniSONE 10 mg oral tablet (19 sources) Start: 11-08-2021 Prednisone 10 mg tablet Active 10 mg PO NEEDED as needed for Pain November 08, 2021 1:00am flare ups of arthritis sulfaSALAzine 500 mg oral tablet (19 sources) Aminosalicylate Start: 11-08-2021 take 1 tablet by mouth three times daily Sulfasalazine 500 mg tablet Active 500 mg PO THREE TIMES A DAY November 08, 2021 1:00am Problems Active Problems Problem Classification Problem Date Documented Date Episodic/Chronic Essential hypertension (1 source) Essential (primary) hypertension; Translations: [Essential (primary) hypertension] Onset: 02-05-2025 Chronic Fracture of lower limb (19 sources) Closed fracture of ankle; Translations: [Other fracture of right lower leg, initial encounter for closed fracture] 10-16-2020 Episodic Respiratory failure; insufficiency; arrest (adult) (19 sources) Acute respiratory failure; Translations: [Acute respiratory failure with hypoxia] 12-01-2021 Episodic Rheumatoid arthritis and related disease (20 sources) Rheumatoid arthritis; Translations: [Rheumatoid arthritis, unspecified] Onset: 05-28-2025 12-30-2021 Chronic Unclassified (1 source) Other intervertebral disc degeneration, 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 or lower extremity pain; Translations: [Other intervertebral disc degeneration, 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 or lower extremity pain] Onset: 06-07-2025 Viral infection (19 sources) COVID-19; Translations: [Pneumonia due to COVID-19 virus] 12-01-2021 Episodic Past or Other Problems Problem Classification Problem Date Documented Da te Episodic/Chronic Other screening for suspected conditions (not mental disorders or infectious disease) (2 sources) Abnormal results of kidney function studies; Translations: [Encounter for screening mammogram for malignant neoplasm of breast] Onset: 07-31-2024 Episodic Results Test Name Value Interpretation Reference Range Facility L/S Spine Min 4 Viewson 07-0 L/S Spine Min 4 Views [facility] Imaging Services [address] [place] [address] L/S Spine Min 4 Views MR#: [id number] Acct: [id number] Name: AUGUSTUS TARIQ Rep #: [id number] : 1955 F 69 From: Angelique Ghotra PCP: Dr. Gaetano Tilley MD Status: REG CLI Study: L/S Spine Min 4 Views Date of Exam: 06/03/25 Exam# [id number] Ordering Dr: Mercedes Crow PROCEDURE: L/S SPINE MIN 4 VIEWS 06/03/2025 REASON FOR EXAM: LUMBAR SPINE PAIN/ DDD TECHNIQUE: L/S SPINE MIN 4 VIEWS COMPARISON: None FINDINGS: Five views of the lumbar spine and sacrum were obtained and demonstrate 5 lumbar-type vertebral bodies below the last set of paired ribs. There appears to be mild diffuse osteopenia of the osseous structures of the lumbar spine and sacrum. The vertebral body alignment is within normal limits. There is no spondylolisthesis. There is a slight decrease in height of the L5 vertebral body by approximately 3-5%. This may be related to an osteoporotic compression fracture. The age of which is indeterminate. The remaining vertebral body heights are within normal limits. Degenerative disc disease is seen involving all levels. This is most pronounced at the L5-S1 level. There is some bony encroachment on the neural foramina at this level. There are no fractures of the sacrum. Mild arthritic changes of the right hip are noted. The visualized prosthetic left hip device appears to be in satisfactory position without evidence of fracture or loosening. Please note however that the entire device is not included on this study. 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 RAD/L/S Spine Min 4 Views IMPRESSION: Diffuse osteopenia of the osseous structures of the lumbar spine and sacrum. Decrease in height of the L5 vertebral body by approximately 3-5%. Degenerative disc disease involving all lumbar discs. This is most pronounced at the L5-S1 level. RECOMMENDATION: The patient may benefit by having an MRI of the lumbar spine for further evaluation of the disc spaces and nerve roots if clinically warranted. This could also further evaluate the slight decrease in height of the L5 vertebral body. Reading Location: [facility] CC: Mercedes Crow; Dr. Gaetano Tilley MD [employer] Supervisor: Signed Normal [facility] Absolute lymphocyte countOrd ered By: Sara Matute on 05-24-2025 Lymphocytes Auto (Unsp spec) [#/Vol] 1.40 10*3/uL 0.83-4.51 [facility] Absolute neutrophil countOrd ered By: Sara Matute on 05-24-2025 Neutrophils (Bld) [#/Vol] 1.9 10*3/uL Low 2.0-7.7 [facility] Anion gap in Serum or Plasma Ordered By: Sara Matute on 05-24-2025 Anion gap [Moles/Vol] 11 mmol/L 5-15 [facility] Automated blood erythrocyte countOrdered By: Sara Matute on 05-24-2025 RBC (Bld) [#/Vol] 3.91 10*6/uL Low 4.2-5.4 [facility] Comment on above: Performed By: #### L 506.0400, L500.4100, L501.9520, L506.1000, L500.4050, L100.0100 #### [facility] [address] [place], [address] Automated blood hematocrit ( percentage)Ordered By: Sara Matute on 05-24-2025 Hematocrit (Bld) [Volume fraction] 38.9 % Normal 37-47 [facility] Comment on above: Performed By: #### L 506.0400, L500.4100, L501.9520, L506.1000, L500.4050, L100.0100 #### [facility] [address] [place], [address] Automated lymphocyte count a s percentage of total leukocytesOrdered By: Sara Matute on 05-24-2025 Lymphocytes/100 WBC Auto (Unsp spec) 36.5 % - [facility] BUN/creatinine ratioOrdered By: [facility] on 05-24-2025 Urea nitrogen/Creatinine [Mass ratio] 13.0 mg/mg 10-20 [facility] Basophil percentageOrdered B y: Sara Matute on 05-24-2025 Basophils/100 WBC (Bld) 1.0 % Normal 0-1 [facility] Comment on above: Performed By: #### L 506.0400, L500.4100, L501.9520, L506.1000, L500.4050, L100.0100 #### [facility] [address] [place], [address] Bilirubin, totalOrdered By: Sarajason Matute on 05-24-2025 Bilirubin [Mass/Vol] 0.37 mg/dL 0.00-1.30 [facility] CBC W/Diff, Automatedon 04-29 Absolute Lymph 1.40 X10 3/uL Normal 0.83-4.51 [facility] Comment on above: Performed By: #### L 506.0400, L500.4100, L501.9520, L506.1000, L500.4050, L100.0100 #### [facility] [address] [place], [address] Absolute Neut 1.9 X10 3/uL Low 2.0-7.7 [facility] Comment on above: Performed By: #### L 506.0400, L500.4100, L501.9520, L506.1000, L500.4050, L100.0100 #### [facility] [address] [place], [address] IG% 0.300 Normal 0.0-0.9 [facility] Comment on above: Result Comment: IG% - Immature Granulocytes (promyelocytes, myelocytes and metamyelocytes) > 1% indicates that a LEFT SHIFT is Present. Performed By: #### L 506.0400, L500.4100, L501.9520, L506.1000, L500.4050, L100.0100 #### [facility] [address] [place], [address] Lymphocytes/100 WBC (Bld) 36.5 % Normal 19-41 [facility] Comment on above: Performed By: #### L 506.0400, L500.4100, L501.9520, L506.1000, L500.4050, L100.0100 #### [facility] [address] [place], [address] Nucleated RBC (Bld) [#/Vol] 0 10*3/uL Normal 0-5 [facility] Comment on above: Performed By: #### L 506.0400, L500.4100, L501.9520, L506.1000, L500.4050, L100.0100 #### [facility] [address] [place], [address] RDW SD 50.4 fl High 35.1-43.9 [facility] Comment on above: Performed By: #### L 506.0400, L500.4100, L501.9520, L506.1000, L500.4050, L100.0100 #### [facility] [address] [place], [address] Carbon dioxide, total [Moles /volume] in Central venous bloodOrdered By: Sara Matute on 05-24-2025 CO2 [Moles/Vol] 23.0 mmol/L 21.0-32.0 [facility] Chloride assayOrdered By: Waqar Matute on 05-24-2025 Chloride [Moles/Vol] 107 mmol/L 98-108 [facility] Comprehensive Metabolic Prof ilon 05-24-2025 Albumin [Mass/Vol] 4.2 g/dL Normal 3.4-4.8 [facility] Comment on above: Performed By: #### L 506.0400, L500.4100, L501.9520, L506.1000, L500.4050, L100.0100 #### [facility] [address] [place], [address] Albumin/Globulin [Mass ratio] 1.8 {ratio} Normal 0.9-2.4 [facility] Comment on above: Performed By: #### L 506.0400, L500.4100, L501.9520, L506.1000, L500.4050, L100.0100 #### [facility] [address] [place], [address] ALK PHOS 54 U/L Normal 35-104 [facility] Comment on above: Performed By: #### L 506.0400, L500.4100, L501.9520, L506.1000, L500.4050, L100.0100 #### [facility] [address] [place], [address] ALT [Catalytic activity/Vol] 13 U/L Normal <=34 [facility] Comment on above: Performed By: #### L 506.0400, L500.4100, L501.9520, L506.1000, L500.4050, L100.0100 #### [facility] [address] [place], [address] AST [Catalytic activity/Vol] 22 U/L Normal <=31 [facility] Comment on above: Performed By: #### L 506.0400, L500.4100, L501.9520, L506.1000, L500.4050, L100.0100 #### [facility] [address] [place], [address] Bilirubin [Mass/Vol] 0.37 mg/dL Normal 0.00-1.30 [facility] Comment on above: Performed By: #### L 506.0400, L500.4100, L501.9520, L506.1000, L500.4050, L100.0100 #### [facility] [address] [place], [address] BUN/CRE 13.0 RATIO Normal 10-20 [facility] Comment on above: Performed By: #### L 506.0400, L500.4100, L501.9520, L506.1000, L500.4050, L100.0100 #### [facility] [address] [place], [address] Calcium [Mass/Vol] 9.2 mg/dL Normal 7.6-11.0 [facility] Comment on above: Performed By: #### L 506.0400, L500.4100, L501.9520, L506.1000, L500.4050, L100.0100 #### [facility] [address] [place], [address] Chloride [Moles/Vol] 107 mmol/L Normal 98-108 [facility] Comment on above: Performed By: #### L 506.0400, L500.4100, L501.9520, L506.1000, L500.4050, L100.0100 #### [facility] [address] [place], [address] CO2 [Moles/Vol] 23.0 mmol/L Normal 21.0-32.0 [facility] Comment on above: Performed By: #### L 506.0400, L500.4100, L501.9520, L506.1000, L500.4050, L100.0100 #### [facility] [address] [place], [address] Creatinine [Mass/Vol] 0.63 mg/dL Low 0.70-1.20 [facility] Comment on above: Performed By: #### L 506.0400, L500.4100, L501.9520, L506.1000, L500.4050, L100.0100 #### [facility] [address] [place], [address] GAP 11 Normal 5-15 [facility] Comment on above: Performed By: #### L 506.0400, L500.4100, L501.9520, L506.1000, L500.4050, L100.0100 #### [facility] [address] [place], [address] GFR/1.73 sq M.predicted among non-blacks MDRD (S/P/Bld) [Vol rate/Area] 97 mL/min/{1.73_m2} Normal >60 [facility] Comment on above: Result Comment: mL/m in/1.73m2 CKD-EPI Creatinine Equation (2020) Performed By: #### L 506.0400, L500.4100, L501.9520, L506.1000, L500.4050, L100.0100 #### [facility] [address] [place], [address] Globulin (S) [Mass/Vol] 2.3 g/dL Normal 2.2-4.2 [facility] Comment on above: Performed By: #### L 506.0400, L500.4100, L501.9520, L506.1000, L500.4050, L100.0100 #### [facility] [address] [place], [address] Glucose [Mass/Vol] 96 mg/dL Normal 70-99 [facility] Comment on above: Performed By: #### L 506.0400, L500.4100, L501.9520, L506.1000, L500.4050, L100.0100 #### [facility] [address] [place], [address] Potassium [Moles/Vol] 4.2 mmol/L Normal 3.3-5.1 [facility] Comment on above: Performed By: #### L 506.0400, L500.4100, L501.9520, L506.1000, L500.4050, L100.0100 #### [facility] [address] [place], [address] Sodium [Moles/Vol] 142 mmol/L Normal 133-145 [facility] Comment on above: Performed By: #### L 506.0400, L500.4100, L501.9520, L506.1000, L500.4050, L100.0100 #### [facility] [address] [place], [address] T PROT 6.5 g/dL Normal 5.9-8.4 [facility] Comment on above: Performed By: #### L 506.0400, L500.4100, L501.9520, L506.1000, L500.4050, L100.0100 #### [facility] [address] [place], [address] Urea nitrogen [Mass/Vol] 8 mg/dL Normal 4-19 [facility] Comment on above: Performed By: #### L 506.0400, L500.4100, L501.9520, L506.1000, L500.4050, L100.0100 #### [facility] [address] [place], [address] Eosinophil percentageOrdered By: Sara Matute on 05-24-2025 Eosinophils/100 WBC (Bld) 2.1 % Normal 0-5 [facility] Comment on above: Performed By: #### L 506.0400, L500.4100, L501.9520, L506.1000, L500.4050, L100.0100 #### [facility] [address] [place], [address] Erythrocyte distribution wid th ratioOrdered By: Sara Matute on 05-24-2025 Erythrocyte distribution width (RBC) [Ratio] 13.8 % Normal 11.6-14.6 [facility] Comment on above: Performed By: #### L 506.0400, L500.4100, L501.9520, L506.1000, L500.4050, L100.0100 #### [facility] [address] [place], [place], [id number] Erythrocyte distribution wid th standard deviationOrdered By: Sara Matute on 05-24-2025 Erythrocyte distribution width (RBC) [Ratio] 50.4 fl High 35.1-43.9 [facility] Glomerular filtration rate ( GFR) estimation/1.73 sq m using serum, plasma, or whole bOrdered By: Sara Matute on 05-24-2025 GFR/1.73 sq M.predicted among non-blacks MDRD (S/P/Bld) [Vol rate/Area] 97 mL/min/{1.73_m2} >60 [facility] Comment on above: mL/min/1.73m2 CKD-EP I Creatinine Equation (2020) Hemoglobin measurementOrdere d By: Sara Matute on 05-24-2025 Hemoglobin (Bld) [Mass/Vol] 12.6 g/dL Normal 12.0-15.0 [facility] Comment on above: Performed By: #### L 506.0400, L500.4100, L501.9520, L506.1000, L500.4050, L100.0100 #### [facility] [address] [place], [place], [id number] Immature granulocytes/100 WB C Auto (Bld)Ordered By: Sara Matute on 05-24-2025 Immature granulocytes/100 WBC (Bld) 0.300 % 0.0-0.9 [facility] Comment on above: IG% - Immature Granu locytes (promyelocytes, myelocytes and metamyelocytes) > 1% indicates that a LEFT SHIFT is Present. Laboratory - Chemistry and C hemistry - challengeOrdered By: Sara Matute on 05-24-2025 AST [Catalytic activity/Vol] 22 U/L <32 [facility] MCV (mean corpuscular volume ) determinationOrdered By: Sara Matute on 05-24-2025 MCV (RBC) [Entitic vol] 99.5 fL High 81-99 [facility] Comment on above: Performed By: #### L 506.0400, L500.4100, L501.9520, L506.1000, L500.4050, L100.0100 #### [facility] [address] [place], [place], [id number] Mean corpuscular hemoglobin (MCH) determinationOrdered By: Sara Matute on 05-24-2025 MCH (RBC) [Entitic mass] 32.2 pg High 27.0-32.0 [facility] Comment on above: Performed By: #### L 506.0400, L500.4100, L501.9520, L506.1000, L500.4050, L100.0100 #### [facility] [address] [place], [address] Mean corpuscular hemoglobin concentration (MCHC) determinationOrdered By: Sara Matute on 05-24-2025 MCHC (RBC) [Mass/Vol] 32.4 g/dL Normal 32-36 [facility] Comment on above: Performed By: #### L 506.0400, L500.4100, L501.9520, L506.1000, L500.4050, L100.0100 #### [facility] [address] [place], [address] Mean platelet volume determi nationOrdered By: Sara Matute on 05-24-2025 Platelet mean volume (Bld) [Entitic vol] 10.2 fL Normal 6.2-12.0 [facility] Comment on above: Performed By: #### L 506.0400, L500.4100, L501.9520, L506.1000, L500.4050, L100.0100 #### [facility] [address] [place], [address] Monocyte percentageOrdered B y: Sara Matute on 05-24-2025 Monocytes/100 WBC (Bld) 9.6 % Normal 0-10 [facility] Comment on above: Performed By: #### L 506.0400, L500.4100, L501.9520, L506.1000, L500.4050, L100.0100 #### [facility] [address] [place], [place], [id number] Neutrophil percentageOrdered By: Sara Matute on 05-24-2025 Neutrophils/100 WBC (Bld) 50.5 % Normal 47-70 [facility] Comment on above: Performed By: #### L 506.0400, L500.4100, L501.9520, L506.1000, L500.4050, L100.0100 #### [facility] [address] [place], [place], [id number] Nucleated red blood cell per centageOrdered By: Sara Matute on 05-24-2025 Nucleated RBC/100 WBC (Bld) [Ratio] 0 % 0-5 [facility] Platelet countOrdered By: Waqar Matute on 05-24-2025 Platelets (Bld) [#/Vol] 243 10*3/uL Normal 150-450 [facility] Comment on above: Performed By: #### L 506.0400, L500.4100, L501.9520, L506.1000, L500.4050, L100.0100 #### [facility] [address] [place], [place], [id number] Potassium measurement (mass/ volume)Ordered By: Sara Matute on 05-24-2025 Potassium (Unsp spec) [Mass/Vol] 4.2 mmol/L 3.3-5.1 [facility] Serum creatinine measurement (mass/volume)Ordered By: Sara Matute on 05-24-2025 Creatinine [Mass/Vol] 0.63 mg/dL Low 0.70-1.20 [facility] Serum globulin measurementOr dered By: Sara Matute on 05-24-2025 Globulin (S) [Mass/Vol] 2.3 g/dL 2.2-4.2 [facility] Serum glucose measurement (m ass/volume)Ordered By: Sara Matute on 05-24-2025 Glucose [Mass/Vol] 96 mg/dL 70-99 [facility] Serum or plasma alanine parkinson otransferase (ALT) measurementOrdered By: Sara Matute on 05-24-2025 ALT [Catalytic activity/Vol] 13 U/L <35 [facility] Serum or plasma albumin lamine urement (mass/volume)Ordered By: Sara Matute on 05-24-2025 Albumin [Mass/Vol] 4.2 g/dL 3.4-4.8 [facility] Serum or plasma albumin/glob ulin mass ratioOrdered By: Sara Matute on 05-24-2025 Albumin/Globulin [Mass ratio] 1.8 {ratio} 0.9-2.4 [facility] Serum or plasma alkaline heike sphatase measurementOrdered By: Sara Matute on 05-24-2025 ALP [Catalytic activity/Vol] 54 U/L 35-104 [facility] Serum or plasma calcium lamine urement (mass/volume)Ordered By: Sara Matute on 05-24-2025 Calcium [Mass/Vol] 9.2 mg/dL 7.6-11.0 [facility] Serum or plasma urea nitroge n measurement (mass/volume)Ordered By: Sara Matute on 05-24-2025 Urea nitrogen [Mass/Vol] 8 mg/dL 4-19 [facility] Sodium levelOrdered By: Mazin Matute on 05-24-2025 Sodium [Moles/Vol] 142 mmol/L 133-145 [facility] Total proteinOrdered By: Deuce Matute on 05-24-2025 Protein [Mass/Vol] 6.5 g/dL 5.9-8.4 [facility] White blood cell (WBC) count Ordered By: Sara Matute on 05-24-2025 WBC (Bld) [#/Vol] 3.8 10*3/uL Low 4.4-11.0 [facility] Comment on above: Performed By: #### L 506.0400, L500.4100, L501.9520, L506.1000, L500.4050, L100.0100 #### [facility] [address] [place], [address] Absolute lymphocyte countOrd ered By: Sara Matute on 02-26-2025 Lymphocytes Auto (Unsp spec) [#/Vol] 2.02 10*3/uL 0.83-4.51 [facility] Absolute neutrophil countOrd ered By: [facility] on 02-26-2025 Neutrophils (Bld) [#/Vol] 4.3 10*3/uL 2.0-7.7 [facility] Anion gap in Serum or Plasma Ordered By: Sara Matute on 02-26-2025 Anion gap [Moles/Vol] 12 mmol/L 5-15 [facility] Automated lymphocyte count a s percentage of total leukocytesOrdered By: Sara Matute on 02-26-2025 Lymphocytes/100 WBC Auto (Unsp spec) 28.0 % 19-41 [facility] BUN/creatinine ratioOrdered By: [facility] on 02-26-2025 Urea nitrogen/Creatinine [Mass ratio] 14.8 mg/mg 10-20 [facility] Basophil percentageOrdered B y: Sara Matute on 02-26-2025 Basophils/100 WBC (Bld) 0.8 % 0-1 [facility] Bilirubin, totalOrdered By: Sara Matute on 02-26-2025 Bilirubin [Mass/Vol] 0.29 mg/dL 0.00-1.30 [facility] CBC W/Diff, Automatedon Absolute Lymph 2.02 X10 3/uL Normal 0.83-4.51 [facility] Comment on above: Performed By: #### L 100.0100, L500.4050 ####[facility] [address] [place], [address] Absolute Neut 4.3 X10 3/uL Normal 2.0-7.7 [facility] Comment on above: Performed By: #### L 100.0100, L500.4050 ####[facility] [address] [place], [address] Basophils/100 WBC (Bld) 0.8 % Normal 0-1 [facility] Comment on above: Performed By: #### L 100.0100, L500.4050 ####[facility] [address] [place], [address] Eosinophils/100 WBC (Bld) 6.1 % High 0-5 [facility] Comment on above: Performed By: #### L 100.0100, L500.4050 ####[facility] [address] [place], [address] Erythrocyte distribution width (RBC) [Ratio] 13.3 % Normal 11.6-14.6 [facility] Comment on above: Performed By: #### L 100.0100, L500.4050 ####[facility] [address] [place], [address] Hematocrit (Bld) [Volume fraction] 40.7 % Normal 37-47 [facility] Comment on above: Performed By: #### L 100.0100, L500.4050 ####[facility] [address] [place], [address] Hemoglobin (Bld) [Mass/Vol] 13.4 g/dL Normal 12.0-15.0 [facility] Comment on above: Performed By: #### L 100.0100, L500.4050 ####[facility] [address] [place], [address] IG% 0.100 Normal 0.0-0.9 [facility] Comment on above: Result Comment: IG% - Immature Granulocytes (promyelocytes, myelocytes and metamyelocytes) > 1% indicates that a LEFT SHIFT is Present. Performed By: #### L 100.0100, L500.4050 ####[facility] [address] [place], [address] Lymphocytes/100 WBC (Bld) 28.0 % Normal 19-41 [facility] Comment on above: Performed By: #### L 100.0100, L500.4050 ####[facility] [address] [place], [address] MCH (RBC) [Entitic mass] 33.0 pg High 27.0-32.0 [facility] Comment on above: Performed By: #### L 100.0100, L500.4050 ####[facility] [address] [place], [address] MCHC (RBC) [Mass/Vol] 32.9 g/dL Normal 32-36 [facility] Comment on above: Performed By: #### L 100.0100, L500.4050 ####[facility] [address] [place], [address] MCV (RBC) [Entitic vol] 100.2 fL High 81-99 [facility] Comment on above: Performed By: #### L 100.0100, L500.4050 ####[facility] [address] [place], [address] Monocytes/100 WBC (Bld) 6.0 % Normal 0-10 [facility] Comment on above: Performed By: #### L 100.0100, L500.4050 ####[facility] [address] [place], [address] Neutrophils/100 WBC (Bld) 59.0 % Normal 47-70 [facility] Comment on above: Performed By: #### L 100.0100, L500.4050 ####[facility] [address] [place], [address] Nucleated RBC (Bld) [#/Vol] 0 10*3/uL Normal 0-5 [facility] Comment on above: Performed By: #### L 100.0100, L500.4050 ####[facility] [address] [place], [address] Platelet mean volume (Bld) [Entitic vol] 10.3 fL Normal 6.2-12.0 [facility] Comment on above: Performed By: #### L 100.0100, L500.4050 ####[facility] [address] [place], [address] Platelets (Bld) [#/Vol] 246 10*3/uL Normal 150-450 [facility] Comment on above: Performed By: #### L 100.0100, L500.4050 ####[facility] [address] [place], [address] RBC (Bld) [#/Vol] 4.06 10*6/uL Low 4.2-5.4 [facility] Comment on above: Performed By: #### L 100.0100, L500.4050 ####[facility] [address] [place], [address] RDW SD 49.1 fl High 35.1-43.9 [facility] Comment on above: Performed By: #### L 100.0100, L500.4050 ####[facility] [address] [place], [address] WBC (Bld) [#/Vol] 7.2 10*3/uL Normal 4.4-11.0 [facility] Comment on above: Performed By: #### L 100.0100, L500.4050 ####[facility] [address] [place], [address] Carbon dioxide, total [Moles /volume] in Central venous bloodOrdered By: Sara Matute on 02-26-2025 CO2 [Moles/Vol] 24.8 mmol/L 21.0-32.0 [facility] Chloride assayOrdered By: Waqar Matute on 02-26-2025 Chloride [Moles/Vol] 103 mmol/L 98-108 [facility] Comprehensive Metabolic Prof ilon 02-26-2025 Albumin [Mass/Vol] 4.2 g/dL Normal 3.4-4.8 [facility] Comment on above: Performed By: #### L 100.0100, L500.4050 ####[facility] [address] [place], [address] Albumin/Globulin [Mass ratio] 1.7 {ratio} Normal 0.9-2.4 [facility] Comment on above: Performed By: #### L 100.0100, L500.4050 ####[facility] [address] [place], [address] ALK PHOS 56 U/L Normal 35-104 [facility] Comment on above: Performed By: #### L 100.0100, L500.4050 ####[facility] [address] [place], [address] ALT [Catalytic activity/Vol] 11 U/L Normal <=34 [facility] Comment on above: Performed By: #### L 100.0100, L500.4050 ####[facility] [address] [place], [address] AST [Catalytic activity/Vol] 19 U/L Normal <=31 [facility] Comment on above: Performed By: #### L 100.0100, L500.4050 ####[facility] [address] [place], [address] Bilirubin [Mass/Vol] 0.29 mg/dL Normal 0.00-1.30 [facility] Comment on above: Performed By: #### L 100.0100, L500.4050 ####[facility] [address] [place], [address] BUN/CRE 14.8 RATIO Normal 10-20 [facility] Comment on above: Performed By: #### L 100.0100, L500.4050 ####[facility] [address] [place], [address] Calcium [Mass/Vol] 9.9 mg/dL Normal 7.6-11.0 [facility] Comment on above: Performed By: #### L 100.0100, L500.4050 ####[facility] [address] [place], [address] Chloride [Moles/Vol] 103 mmol/L Normal 98-108 [facility] Comment on above: Performed By: #### L 100.0100, L500.4050 ####[facility] [address] [place], [address] CO2 [Moles/Vol] 24.8 mmol/L Normal 21.0-32.0 [facility] Comment on above: Performed By: #### L 100.0100, L500.4050 ####[facility] [address] [place], [address] Creatinine [Mass/Vol] 0.70 mg/dL Normal 0.70-1.20 [facility] Comment on above: Performed By: #### L 100.0100, L500.4050 ####[facility] [address] [place], [address] GAP 12 Normal 5-15 [facility] Comment on above: Performed By: #### L 100.0100, L500.4050 ####[facility] [address] [place], [address] GFR/1.73 sq M.predicted among non-blacks MDRD (S/P/Bld) [Vol rate/Area] 95 mL/min/{1.73_m2} Normal >60 [facility] Comment on above: Result Comment: mL/m in/1.73m2 CKD-EPI Creatinine Equation (2020) Performed By: #### L 100.0100, L500.4050 ####[facility] [address] [place], [address] Globulin (S) [Mass/Vol] 2.5 g/dL Normal 2.2-4.2 [facility] Comment on above: Performed By: #### L 100.0100, L500.4050 ####[facility] [address] [place], [address] Glucose [Mass/Vol] 94 mg/dL Normal 70-99 [facility] Comment on above: Performed By: #### L 100.0100, L500.4050 ####[facility] [address] [place], [address] Potassium [Moles/Vol] 4.0 mmol/L Normal 3.3-5.1 [facility] Comment on above: Performed By: #### L 100.0100, L500.4050 ####[facility] [address] [place], [address] Sodium [Moles/Vol] 140 mmol/L Normal 133-145 [facility] Comment on above: Performed By: #### L 100.0100, L500.4050 ####[facility] [address] [place], [address] T PROT 6.8 g/dL Normal 5.9-8.4 [facility] Comment on above: Performed By: #### L 100.0100, L500.4050 ####[facility] [address] [place], [address] Urea nitrogen [Mass/Vol] 10 mg/dL Normal 4-19 [facility] Comment on above: Performed By: #### L 100.0100, L500.4050 ####[facility] [address] [place], [address] Eosinophil percentageOrdered By: Sara Matute on 02-26-2025 Eosinophils/100 WBC (Bld) 6.1 % High 0-5 [facility] Erythrocyte distribution wid th (RBC) [Ratio]Ordered By: Sara Matute on 02-26-2025 Erythrocyte distribution width (RBC) [Entitic vol] 49.1 fL High 35.1-43.9 [facility] Erythrocyte distribution wid th ratioOrdered By: Sara Matute on 02-26-2025 Erythrocyte distribution width (RBC) [Ratio] 13.3 % 11.6-14.6 [facility] Erythrocyte distribution wid th standard deviationOrdered By: Sara Matute on 02-26-2025 Erythrocyte distribution width (RBC) [Ratio] 49.1 fl High 35.1-43.9 [facility] GFR/1.73 sq M.predicted mckinley g non-blacks MDRD (S/P/Bld) [Vol rate/Area]Ordered By: Sara Matute on 02-26-2025 Estimated GFR (MDRD) Non-Af Amer 95 >60 [facility] Comment on above: mL/min/1.73m2 CKD-EP I Creatinine Equation (2020) Glomerular filtration rate ( GFR) estimation/1.73 sq m using serum, plasma, or whole bOrdered By: Sara Matute on 02-26-2025 GFR/1.73 sq M.predicted among non-blacks MDRD (S/P/Bld) [Vol rate/Area] 95 mL/min/{1.73_m2} >60 [facility] Comment on above: mL/min/1.73m2 CKD-EP I Creatinine Equation (2020) Hematocrit Auto (Bld) [Volum e fraction]Ordered By: Sara Matute on 02-26-2025 Hematocrit (Bld) [Volume fraction] 40.7 % 37-47 [facility] Hemoglobin measurementOrdere d By: Sara Matute on 02-26-2025 Hemoglobin (Bld) [Mass/Vol] 13.4 g/dL 12.0-15.0 [facility] Immature granulocytes/100 WB C Auto (Bld)Ordered By: Sara Matute on 02-26-2025 Immature granulocytes/100 WBC (Bld) 0.100 % 0.0-0.9 [facility] Comment on above: IG% - Immature Granu locytes (promyelocytes, myelocytes and metamyelocytes) > 1% indicates that a LEFT SHIFT is Present. Laboratory - Chemistry and C hemistry - challengeOrdered By: Sara Matute on 02-26-2025 AST [Catalytic activity/Vol] 19 U/L <32 [facility] Lymphocytes Auto (Unsp spec) [#/Vol]Ordered By: Sara Matute on 02-26-2025 Lymphocytes (Bld) [#/Vol] 2.02 10*3/uL 0.83-4.51 [facility] Lymphocytes/100 WBC Auto (Un sp spec)Ordered By: Sara Matute on 02-26-2025 Lymphocytes/100 WBC (Bld) 28.0 % 19-41 [facility] MCV (mean corpuscular volume ) determinationOrdered By: Sara Matute on 02-26-2025 MCV (RBC) [Entitic vol] 100.2 fL High 81-99 [facility] Mean corpuscular hemoglobin (MCH) determinationOrdered By: Sara Matute on 02-26-2025 MCH (RBC) [Entitic mass] 33.0 pg High 27.0-32.0 [facility] Mean corpuscular hemoglobin concentration (MCHC) determinationOrdered By: Sara Matute on 02-26-2025 MCHC (RBC) [Mass/Vol] 32.9 g/dL 32-36 [facility] Mean platelet volume determi nationOrdered By: Sara Matute on 02-26-2025 Platelet mean volume (Bld) [Entitic vol] 10.3 fL 6.2-12.0 [facility] Monocyte percentageOrdered B y: Sara Matute on 02-26-2025 Monocytes/100 WBC (Bld) 6.0 % 0-10 [facility] Neutrophil percentageOrdered By: Sara Matute on 02-26-2025 Neutrophils/100 WBC (Bld) 59.0 % 47-70 [facility] Nucleated red blood cell per centageOrdered By: Sara Matute on 02-26-2025 Nucleated RBC/100 WBC (Bld) [Ratio] 0 % 0-5 [facility] Platelet countOrdered By: Waqar Matute on 02-26-2025 Platelets (Bld) [#/Vol] 246 10*3/uL 150-450 [facility] Potassium (Unsp spec) [Mass/ Vol]Ordered By: Sara Matute on 02-26-2025 Potassium [Moles/Vol] 4.0 mmol/L 3.3-5.1 [facility] Potassium measurement (mass/ volume)Ordered By: Sara Matute on 02-26-2025 Potassium (Unsp spec) [Mass/Vol] 4.0 mmol/L 3.3-5.1 [facility] RBC Auto (Bld) [#/Vol]Ordere d By: Sara Matute on 02-26-2025 RBC (Bld) [#/Vol] 4.06 10*6/uL Low 4.2-5.4 [facility] Serum creatinine measurement (mass/volume)Ordered By: Sara Matute on 02-26-2025 Creatinine [Mass/Vol] 0.70 mg/dL 0.70-1.20 [facility] Serum globulin measurementOr dered By: Sara Matute on 02-26-2025 Globulin (S) [Mass/Vol] 2.5 g/dL 2.2-4.2 [facility] Serum glucose measurement (m ass/volume)Ordered By: Sara Matute on 02-26-2025 Glucose [Mass/Vol] 94 mg/dL 70-99 [facility] Serum or plasma alanine parkinson otransferase (ALT) measurementOrdered By: Sara Matute on 02-26-2025 ALT [Catalytic activity/Vol] 11 U/L <35 [facility] Serum or plasma albumin lamine urement (mass/volume)Ordered By: Sara Matute on 02-26-2025 Albumin [Mass/Vol] 4.2 g/dL 3.4-4.8 [facility] Serum or plasma albumin/glob ulin mass ratioOrdered By: Sara Matute on 02-26-2025 Albumin/Globulin [Mass ratio] 1.7 {ratio} 0.9-2.4 [facility] Serum or plasma alkaline heike sphatase measurementOrdered By: Sara Matute on 02-26-2025 ALP [Catalytic activity/Vol] 56 U/L 35-104 [facility] Serum or plasma calcium lamine urement (mass/volume)Ordered By: Sara Matute on 02-26-2025 Calcium [Mass/Vol] 9.9 mg/dL 7.6-11.0 [facility] Serum or plasma urea nitroge n measurement (mass/volume)Ordered By: Sara Matute on 02-26-2025 Urea nitrogen [Mass/Vol] 10 mg/dL 4-19 [facility] Sodium levelOrdered By: Mazin Matute on 02-26-2025 Sodium [Moles/Vol] 140 mmol/L 133-145 [facility] Total proteinOrdered By: Deuce Matute on 02-26-2025 Protein [Mass/Vol] 6.8 g/dL 5.9-8.4 [facility] White blood cell (WBC) count Ordered By: Sara Matute on 02-26-2025 WBC (Bld) [#/Vol] 7.2 10*3/uL 4.4-11.0 [facility] Anion gap in Serum or Plasma Ordered By: Gaetano Tilley on 01-30-2025 Anion gap [Moles/Vol] 10 mmol/L 5-15 [facility] BUN/creatinine ratioOrdered By: Gaetano Tilley on 01-30-2025 Urea nitrogen/Creatinine [Mass ratio] 18.0 mg/mg 10- [facility] Basic Metabolic Profile (BMP )on 01-30-2025 BUN/CRE 18.0 RATIO Normal - [facility] Comment on above: Order Comment: Order Date: 10/24/24 Order Info: [id number] - CMP Order Info: [id number] - LIPID Order Date: 03/08/24 Order Info: [id number] - MG Order Info: [id number] - TSH Order Info: [id number] - T4F Performed By: #### L 506.0400, L500.4100, L501.9520, L506.1000, L500.4050, L100.0100 #### [facility] [address] [place], [address] Calcium [Mass/Vol] 9.3 mg/dL Normal 7.6-11.0 [facility] Comment on above: Order Comment: Order Date: 10/24/24 Order Info: [id number] - CMP Order Info: [id number] - LIPID Order Date: 03/08/24 Order Info: [id number] - MG Order Info: [id number] - TSH Order Info: 3024-7 - T4F Performed By: #### L 506.0400, L500.4100, L501.9520, L506.1000, L500.4050, L100.0100 #### [facility] [address] [place], [address] Chloride [Moles/Vol] 105 mmol/L Normal 98-108 [facility] Comment on above: Order Comment: Order Date: 10/24/24 Order Info: [id number] - CMP Order Info: [id number] - LIPID Order Date: 03/08/24 Order Info: [id number] - MG Order Info: [id number] - TSH Order Info: 3024-7 - T4F Performed By: #### L 506.0400, L500.4100, L501.9520, L506.1000, L500.4050, L100.0100 #### [facility] [address] [place], [address] CO2 [Moles/Vol] 25.6 mmol/L Normal 21.0-32.0 [facility] Comment on above: Order Comment: Order Date: 10/24/24 Order Info: [id number] - CMP Order Info: [id number] - LIPID Order Date: 03/08/24 Order Info: [id number] - MG Order Info: [id number] - TSH Order Info: 3024-7 - T4F Performed By: #### L 506.0400, L500.4100, L501.9520, L506.1000, L500.4050, L100.0100 #### [facility] [address] [place], [place], [address] Creatinine [Mass/Vol] 0.69 mg/dL Low 0.70-1.20 [facility] Comment on above: Order Comment: Order Date: 10/24/24 Order Info: [id number] - CMP Order Info: [id number] - LIPID Order Date: 03/08/24 Order Info: [id number] - MG Order Info: [id number] - TSH Order Info: 302-7 - T4F Performed By: #### L 506.0400, L500.4100, L501.9520, L506.1000, L500.4050, L100.0100 #### [facility] [address] [place], [place], [address] GAP 10 Normal 5-15 [facility] Comment on above: Order Comment: Order Date: 10/24/24 Order Info: [id number] - CMP Order Info: [id number] - LIPID Order Date: 03/08/24 Order Info: [id number] - MG Order Info: [id number] - TSH Order Info: [id number] - T4F Performed By: #### L 506.0400, L500.4100, L501.9520, L506.1000, L500.4050, L100.0100 #### [facility] [address] [place], [place], [address] GFR/1.73 sq M.predicted among non-blacks MDRD (S/P/Bld) [Vol rate/Area] 95 mL/min/{1.73_m2} Normal >60 [facility] Comment on above: Order Comment: Order Date: 10/24/24 Order Info: [id number] - CMP Order Info: [id number] - LIPID Order Date: 03/08/24 Order Info: [id number] - MG Order Info: [id number] - TSH Order Info: 3024-7 - T4F Result Comment: mL/m in/1.73m2 CKD-EPI Creatinine Equation (2020) Performed By: #### L 506.0400, L500.4100, L501.9520, L506.1000, L500.4050, L100.0100 #### [facility] [address] [place], [address] Glucose [Mass/Vol] 88 mg/dL Normal 70-99 [facility] Comment on above: Order Comment: Order Date: 10/24/24 Order Info: [id number] - CMP Order Info: [id number] - LIPID Order Date: 03/08/24 Order Info: [id number] - MG Order Info: [id number] - TSH Order Info: 3024-7 - T4F Performed By: #### L 506.0400, L500.4100, L501.9520, L506.1000, L500.4050, L100.0100 #### [facility] [address] [place], [address] Potassium [Moles/Vol] 4.2 mmol/L Normal 3.3-5.1 [facility] Comment on above: Order Comment: Order Date: 10/24/24 Order Info: [id number] - CMP Order Info: [id number] - LIPID Order Date: 03/08/24 Order Info: [id number] - MG Order Info: [id number] - TSH Order Info: [id number] - T4F Performed By: #### L 506.0400, L500.4100, L501.9520, L506.1000, L500.4050, L100.0100 #### [facility] [address] [place], [address] Sodium [Moles/Vol] 141 mmol/L Normal 133-145 [facility] Comment on above: Order Comment: Order Date: 10/24/24 Order Info: 86-1 - CMP Order Info: [id number] - LIPID Order Date: 03/08/24 Order Info: [id number] - MG Order Info: [id number] - TSH Order Info: 3024-7 - T4F Performed By: #### L 506.0400, L500.4100, L501.9520, L506.1000, L500.4050, L100.0100 #### [facility] [address] [place], [address] Urea nitrogen [Mass/Vol] 12 mg/dL Normal 4-19 [facility] Comment on above: Order Comment: Order Date: 10/24/24 Order Info: [id number] - CMP Order Info: [id number] - LIPID Order Date: 03/08/24 Order Info: [id number] - MG Order Info: [id number] - TSH Order Info: [id number] - T4F Performed By: #### L 506.0400, L500.4100, L501.9520, L506.1000, L500.4050, L100.0100 #### [facility] [address] [place], [address] Carbon dioxide, total [Moles /volume] in Central venous bloodOrdered By: Gaetano Tilley on 01-30-2025 CO2 [Moles/Vol] 25.6 mmol/L 21.0-32.0 [facility] Chloride assayOrdered By: Ting Tilley on 01-30-2025 Chloride [Moles/Vol] 105 mmol/L 98-108 [facility] GFR/1.73 sq M.predicted mckinley g non-blacks MDRD (S/P/Bld) [Vol rate/Area]Ordered By: Gaetano Tilley on 01-30-2025 Estimated GFR (MDRD) Non-Af Amer 95 >60 [facility] Comment on above: mL/min/1.73m2 CKD-EP I Creatinine Equation (2020) Glomerular filtration rate ( GFR) estimation/1.73 sq m using serum, plasma, or whole bOrdered By: Gaetano Tilley on 01-30-2025 GFR/1.73 sq M.predicted among non-blacks MDRD (S/P/Bld) [Vol rate/Area] 95 mL/min/{1.73_m2} >60 [facility] Comment on above: mL/min/1.73m2 CKD-EP I Creatinine Equation (2020) Potassium (Unsp spec) [Mass/ Vol]Ordered By: Gaetano Tilley on 01-30-2025 Potassium [Moles/Vol] 4.2 mmol/L 3.3-5.1 [facility] Potassium measurement (mass/ volume)Ordered By: Gaetano Tilley on 01-30-2025 Potassium (Unsp spec) [Mass/Vol] 4.2 mmol/L 3.3-5.1 [facility] Serum creatinine measurement (mass/volume)Ordered By: Gaetano Tilley on 01-30-2025 Creatinine [Mass/Vol] 0.69 mg/dL Low 0.70-1.20 [facility] Serum glucose measurement (m ass/volume)Ordered By: Gaetano Tilley on 01-30-2025 Glucose [Mass/Vol] 88 mg/dL 70-99 [facility] Serum or plasma calcium lamine urement (mass/volume)Ordered By: Gaetano Tilley on 01-30-2025 Calcium [Mass/Vol] 9.3 mg/dL 7.6-11.0 [facility] Serum or plasma urea nitroge n measurement (mass/volume)Ordered By: Gaetano Tilley on 01-30-2025 Urea nitrogen [Mass/Vol] 12 mg/dL 4-19 [facility] Sodium levelOrdered By: Gaetano Tilley on 01-30-2025 Sodium [Moles/Vol] 141 mmol/L 133-145 [facility] Absolute neutrophil countOrd ered By: Gaetano Tilley on 01-22-2025 Neutrophils (Bld) [#/Vol] 2.5 10*3/uL 2.0-7.7 [facility] BUN/creatinine ratioOrdered By: Gaetano Tilley on 01-22-2025 Urea nitrogen/Creatinine [Mass ratio] 19.1 mg/mg 10-20 [facility] Basophil percentageOrdered B y: Gaetano Tilley on 01-22-2025 Basophils/100 WBC (Bld) 0.6 % 0-1 [facility] Bilirubin Test strip Ql (U)O rdered By: Gaetano Tilley on 01-22-2025 Bilirubin Ql (U) Negative Negative [facility] Bilirubin, totalOrdered By: Gaetano Tilley on 01-22-2025 Bilirubin [Mass/Vol] 0.47 mg/dL 0.00-1.30 [facility] CBC W/Diff, Automatedon 02-2 -2024 Absolute Lymph 1.65 X10 3/uL Normal 0.83-4.51 [facility] Comment on above: Performed By: #### L 506.0400, L500.4100, L501.9520, L506.1000, L500.4050, L100.0100 #### [facility] [address] [place], [address] Absolute Neut 2.5 X10 3/uL Normal 2.0-7.7 [facility] Comment on above: Performed By: #### L 506.0400, L500.4100, L501.9520, L506.1000, L500.4050, L100.0100 #### [facility] [address] [place], [address] Basophils/100 WBC (Bld) 0.6 % Normal 0-1 [facility] Comment on above: Performed By: #### L 506.0400, L500.4100, L501.9520, L506.1000, L500.4050, L100.0100 #### [facility] [address] [place], [address] Eosinophils/100 WBC (Bld) 2.6 % Normal 0-5 [facility] Comment on above: Performed By: #### L 506.0400, L500.4100, L501.9520, L506.1000, L500.4050, L100.0100 #### [facility] [address] [place], [address] Erythrocyte distribution width (RBC) [Ratio] 13.5 % Normal 11.6-14.6 [facility] Comment on above: Performed By: #### L 506.0400, L500.4100, L501.9520, L506.1000, L500.4050, L100.0100 #### [facility] [address] [place], [address] Hematocrit (Bld) [Volume fraction] 40.9 % Normal 37-47 [facility] Comment on above: Performed By: #### L 506.0400, L500.4100, L501.9520, L506.1000, L500.4050, L100.0100 #### [facility] [address] [place], [address] Hemoglobin (Bld) [Mass/Vol] 13.1 g/dL Normal 12.0-15.0 [facility] Comment on above: Performed By: #### L 506.0400, L500.4100, L501.9520, L506.1000, L500.4050, L100.0100 #### [facility] [address] [place], [address] IG% 0.400 Normal 0.0-0.9 [facility] Comment on above: Result Comment: IG% - Immature Granulocytes (promyelocytes, myelocytes and metamyelocytes) > 1% indicates that a LEFT SHIFT is Present. Performed By: #### L 506.0400, L500.4100, L501.9520, L506.1000, L500.4050, L100.0100 #### [facility] [address] [facility] [place], [address] Lymphocytes/100 WBC (Bld) 35.1 % Normal 19-41 [facility] Comment on above: Performed By: #### L 506.0400, L500.4100, L501.9520, L506.1000, L500.4050, L100.0100 #### [facility] [address] [place], [address] MCH (RBC) [Entitic mass] 32.7 pg High 27.0-32.0 [facility] Comment on above: Performed By: #### L 506.0400, L500.4100, L501.9520, L506.1000, L500.4050, L100.0100 #### [facility] [address] [place], [address] MCHC (RBC) [Mass/Vol] 32.0 g/dL Normal 32-36 [facility] Comment on above: Performed By: #### L 506.0400, L500.4100, L501.9520, L506.1000, L500.4050, L100.0100 #### [facility] [address] [place], [address] MCV (RBC) [Entitic vol] 102.0 fL High 81-99 [facility] Comment on above: Performed By: #### L 506.0400, L500.4100, L501.9520, L506.1000, L500.4050, L100.0100 #### [facility] [address] [place], [address] Monocytes/100 WBC (Bld) 8.3 % Normal 0-10 [facility] Comment on above: Performed By: #### L 506.0400, L500.4100, L501.9520, L506.1000, L500.4050, L100.0100 #### [facility] [address] [place], [address] Neutrophils/100 WBC (Bld) 53.0 % Normal 47-70 [facility] Comment on above: Performed By: #### L 506.0400, L500.4100, L501.9520, L506.1000, L500.4050, L100.0100 #### [facility] [address] [place], [address] Nucleated RBC (Bld) [#/Vol] 0 10*3/uL Normal 0-5 [facility] Comment on above: Performed By: #### L 506.0400, L500.4100, L501.9520, L506.1000, L500.4050, L100.0100 #### [facility] [address] [place], [address] Platelet mean volume (Bld) [Entitic vol] 10.0 fL Normal 6.2-12.0 [facility] Comment on above: Performed By: #### L 506.0400, L500.4100, L501.9520, L506.1000, L500.4050, L100.0100 #### [facility] [address] [place], [address] Platelets (Bld) [#/Vol] 254 10*3/uL Normal 150-450 [facility] Comment on above: Performed By: #### L 506.0400, L500.4100, L501.9520, L506.1000, L500.4050, L100.0100 #### [facility] [address] [place] [place], [address] RBC (Bld) [#/Vol] 4.01 10*6/uL Low 4.2-5.4 [facility] Comment on above: Performed By: #### L 506.0400, L500.4100, L501.9520, L506.1000, L500.4050, L100.0100 #### [facility] [address] [place], [address] RDW SD 50.6 fl High 35.1-43.9 [facility] Comment on above: Performed By: #### L 506.0400, L500.4100, L501.9520, L506.1000, L500.4050, L100.0100 #### [facility] [address] [place], [address] WBC (Bld) [#/Vol] 4.7 10*3/uL Normal 4.4-11.0 [facility] Comment on above: Performed By: #### L 506.0400, L500.4100, L501.9520, L506.1000, L500.4050, L100.0100 #### [facility] [address] [place], [address] Cholesterol in VLDL [Mass/Vo l]Ordered By: Gaetano Tilley on 01-22-2025 VLDL Cholesterol 19 mg/dL 5-40 [facility] Comprehensive Metabolic Prof ilon 01-22-2025 Albumin [Mass/Vol] 4.1 g/dL Normal 3.4-4.8 [facility] Comment on above: Performed By: #### L 506.0400, L500.4100, L501.9520, L506.1000, L500.4050, L100.0100 #### [facility] [address] [place], [address] Albumin/Globulin [Mass ratio] 1.4 {ratio} Normal 0.9-2.4 [facility] Comment on above: Performed By: #### L 506.0400, L500.4100, L501.9520, L506.1000, L500.4050, L100.0100 #### [facility] [address] [place], [address] ALK PHOS 92 U/L Normal 35-104 [facility] Comment on above: Performed By: #### L 506.0400, L500.4100, L501.9520, L506.1000, L500.4050, L100.0100 #### [facility] [address] [place], [address] ALT [Catalytic activity/Vol] 22 U/L Normal <=34 [facility] Comment on above: Performed By: #### L 506.0400, L500.4100, L501.9520, L506.1000, L500.4050, L100.0100 #### [facility] [address] [place], [address] Anion gap [Moles/Vol] 10 mmol/L Normal 5-15 [facility] Comment on above: Performed By: #### L 506.0400, L500.4100, L501.9520, L506.1000, L500.4050, L100.0100 #### [facility] [address] [place], [address] AST [Catalytic activity/Vol] 25 U/L Normal <=31 [facility] Comment on above: Performed By: #### L 506.0400, L500.4100, L501.9520, L506.1000, L500.4050, L100.0100 #### [facility] [address] [place], [address] Bilirubin [Mass/Vol] 0.47 mg/dL Normal 0.00-1.30 [facility] Comment on above: Performed By: #### L 506.0400, L500.4100, L501.9520, L506.1000, L500.4050, L100.0100 #### [facility] [address] [place], [address] BUN/CRE 19.1 RATIO Normal 10-20 [facility] Comment on above: Performed By: #### L 506.0400, L500.4100, L501.9520, L506.1000, L500.4050, L100.0100 #### [facility] [address] [place], [address] Calcium [Mass/Vol] 9.4 mg/dL Normal 7.6-11.0 [facility] Comment on above: Performed By: #### L 506.0400, L500.4100, L501.9520, L506.1000, L500.4050, L100.0100 #### [facility] [address] [place], [address] Chloride [Moles/Vol] 110 mmol/L High 96-108 [facility] Comment on above: Performed By: #### L 506.0400, L500.4100, L501.9520, L506.1000, L500.4050, L100.0100 #### [facility] [address] [place], [address] CO2 [Moles/Vol] 20.7 mmol/L Low 22.0-29.0 [facility] Comment on above: Performed By: #### L 506.0400, L500.4100, L501.9520, L506.1000, L500.4050, L100.0100 #### [facility] [address] [place], [address] Creatinine [Mass/Vol] 1.2 mg/dL High 0.6-1.0 [facility] Comment on above: Performed By: #### L 506.0400, L500.4100, L501.9520, L506.1000, L500.4050, L100.0100 #### [facility] [address] [place], [address] GFR/1.73 sq M.predicted among non-blacks MDRD (S/P/Bld) [Vol rate/Area] 52 mL/min/{1.73_m2} Low >60 [facility] Comment on above: Result Comment: mL/m in/1.73m2 CKD-EPI Creatinine Equation (2020) Performed By: #### L 506.0400, L500.4100, L501.9520, L506.1000, L500.4050, L100.0100 #### [facility] [address] [place], [address] Globulin (S) [Mass/Vol] 2.9 g/dL Normal 2.2-4.2 [facility] Comment on above: Performed By: #### L 506.0400, L500.4100, L501.9520, L506.1000, L500.4050, L100.0100 #### [facility] [address] [place], [address] Glucose [Mass/Vol] 74 mg/dL Normal 70-99 [facility] Comment on above: Performed By: #### L 506.0400, L500.4100, L501.9520, L506.1000, L500.4050, L100.0100 #### [facility] [address] [place], [address] Potassium [Moles/Vol] 4.3 mmol/L Normal 3.3-5.1 [facility] Comment on above: Performed By: #### L 506.0400, L500.4100, L501.9520, L506.1000, L500.4050, L100.0100 #### [facility] [address] [place], [address] Sodium [Moles/Vol] 141 mmol/L Normal 133-145 [facility] Comment on above: Performed By: #### L 506.0400, L500.4100, L501.9520, L506.1000, L500.4050, L100.0100 #### [facility] [address] [place], [address] T PROT 7.0 g/dL Normal 5.9-8.4 [facility] Comment on above: Performed By: #### L 506.0400, L500.4100, L501.9520, L506.1000, L500.4050, L100.0100 #### [facility] [address] [place], [address] Urea nitrogen [Mass/Vol] 22 mg/dL High 4-19 [facility] Comment on above: Performed By: #### L 506.0400, L500.4100, L501.9520, L506.1000, L500.4050, L100.0100 #### [facility] [address] [place], [address] ALB Normal 3.2-5.0 [facility] Comment on above: Result Comment: REOR DERED Performed By: #### L 506.0400, L500.4100, L501.9520, L506.1000, L500.4050, L100.0100 #### [facility] [address] [place], [address] ALK PHOS Normal 45-117 [facility] Comment on above: Result Comment: REOR DERED Performed By: #### L 506.0400, L500.4100, L501.9520, L506.1000, L500.4050, L100.0100 #### [facility] [address] [place], [address] ALT Normal 13-56 [facility] Comment on above: Result Comment: REOR DERED Performed By: #### L 506.0400, L500.4100, L501.9520, L506.1000, L500.4050, L100.0100 #### [facility] [address] [place], [address] AST Normal 15-37 [facility] Comment on above: Result Comment: REOR DERED Performed By: #### L 506.0400, L500.4100, L501.9520, L506.1000, L500.4050, L100.0100 #### [facility] [address] [place], [address] BUN Normal 4-19 [facility] Comment on above: Result Comment: REOR DERED Performed By: #### L 506.0400, L500.4100, L501.9520, L506.1000, L500.4050, L100.0100 #### [facility] [address] [place], [address] BUN/CRE Normal 10-20 [facility] Comment on above: Result Comment: REOR DERED Performed By: #### L 506.0400, L500.4100, L501.9520, L506.1000, L500.4050, L100.0100 #### [facility] [address] [place], [address] Calcium Normal 8.5-10.1 [facility] Comment on above: Result Comment: REOR DERED Performed By: #### L 506.0400, L500.4100, L501.9520, L506.1000, L500.4050, L100.0100 #### [facility] [address] [place], [address] CL Normal 98-107 [facility] Comment on above: Result Comment: REOR DERED Performed By: #### L 506.0400, L500.4100, L501.9520, L506.1000, L500.4050, L100.0100 #### [facility] [address] [place], [address] CO2 Normal 21.0-32.0 [facility] Comment on above: Result Comment: REOR DERED Performed By: #### L 506.0400, L500.4100, L501.9520, L506.1000, L500.4050, L100.0100 #### [facility] [address] [place], [address] CREAT,SERUM Normal 0.6-1.0 [facility] Comment on above: Result Comment: REOR DERED Performed By: #### L 506.0400, L500.4100, L501.9520, L506.1000, L500.4050, L100.0100 #### [facility] [address] [place], [address] eGFR Normal >60 [facility] Comment on above: Result Comment: REOR DERED Performed By: #### L 506.0400, L500.4100, L501.9520, L506.1000, L500.4050, L100.0100 #### [facility] [address] [place], [address] GAP Normal 5-15 [facility] Comment on above: Result Comment: REOR DERED Performed By: #### L 506.0400, L500.4100, L501.9520, L506.1000, L500.4050, L100.0100 #### [facility] [address] [place], [address] GLU Normal 70-99 [facility] Comment on above: Result Comment: REOR DERED Performed By: #### L 506.0400, L500.4100, L501.9520, L506.1000, L500.4050, L100.0100 #### [facility] [address] [place], [address] Potassium Normal 3.5-5.1 [facility] Comment on above: Result Comment: REOR DERED Performed By: #### L 506.0400, L500.4100, L501.9520, L506.1000, L500.4050, L100.0100 #### [facility] [address] [place], [address] T BILI Normal 0.20-1.00 [facility] Comment on above: Result Comment: REOR DERED Performed By: #### L 506.0400, L500.4100, L501.9520, L506.1000, L500.4050, L100.0100 #### [facility] [address] [place], [address] T PROT Normal 6.4-8.2 [facility] Comment on above: Result Comment: REOR DERED Performed By: #### L 506.0400, L500.4100, L501.9520, L506.1000, L500.4050, L100.0100 #### [facility] [address] [place], [address] Comprehensive Metabolic Profil Normal 136-145 [facility] Comment on above: Result Comment: SHOSHANA VU Performed By: #### L 506.0400, L500.4100, L501.9520, L506.1000, L500.4050, L100.0100 #### [facility] [address] [place], [address] Creatinine [Moles/Vol]Ordere d By: Gaetano Tilley on 01-22-2025 Creatinine [Mass/Vol] 1.2 mg/dL High 0.6-1.0 [facility] Eosinophil percentageOrdered By: Gaetano Tilley on 01-22-2025 Eosinophils/100 WBC (Bld) 2.6 % 0-5 [facility] Epithelial cells.squamous LM Ql (Urine sed)Ordered By: Gaetano Tilley on 01-22-2025 Epithelial cells.squamous LM.HPF (Urine sed) [#/Area] 0 /[HPF] 5-10 [facility] Erythrocyte distribution wid th ratioOrdered By: Gaetano Tilley on 01-22-2025 Erythrocyte distribution width (RBC) [Ratio] 13.5 % 11.6-14.6 [facility] Erythrocyte distribution wid th standard deviationOrdered By: Gaetano Tilley on 01-22-2025 Erythrocyte distribution width (RBC) [Entitic vol] 50.6 fL High 35.1-43.9 [facility] GFR/1.73 sq M.predicted mckinley g non-blacks MDRD (S/P/Bld) [Vol rate/Area]Ordered By: Gaetano Tilley on 01-22-2025 Estimated GFR (MDRD) Non-Af Amer 52 Low >60 [facility] Comment on above: mL/min/1.73m2 CKD-EP I Creatinine Equation (2020) Glucose Ql (U)Ordered By: Ting Tilley on 01-22-2025 Urine Glucose (UA) Normal mg/dl Normal [facility] Hematocrit Auto (Bld) [Volum e fraction]Ordered By: Gaetano Tilley on 01-22-2025 Hematocrit (Bld) [Volume fraction] 40.9 % 37-47 [facility] Hemoglobin measurementOrdere d By: Gaetano Tilley on 01-22-2025 Hemoglobin (Bld) [Mass/Vol] 13.1 g/dL 12.0-15.0 [facility] Immature granulocytes/100 WB C Auto (Bld)Ordered By: Gaetano Tilley on 01-22-2025 Immature granulocytes/100 WBC (Bld) 0.400 % 0.0-0.9 [facility] Comment on above: IG% - Immature Granu locytes (promyelocytes, myelocytes and metamyelocytes) > 1% indicates that a LEFT SHIFT is Present. Ketones Test strip Ql (U)Ord ered By: Gaetano Tilley on 01-22-2025 Ketones Ql (U) Negative Negative [facility] L506.1001on 01-22-2025 Vitamin D 25-OH 18.5 ng/mL Low 30-100 [facility] Comment on above: Result Comment: Libby min D Status Deficiency: <20 ng/mL (50nmol/L) Insufficiency: 20-30 ng/mL (50-75 nmol/L) Sufficiency: 30-100 ng/mL (75-250 nmol/L) Toxicity: >100 ng/mL (>250 nmol/L) Performed By: #### L 506.0400, L500.4100, L501.9520, L506.1000, L500.4050, L100.0100 #### [facility] [address] [place], [address] Laboratory - Chemistry and C hemistry - challengeOrdered By: Gaetano Tilley on 01-22-2025 AST [Catalytic activity/Vol] 25 U/L <32 [facility] Lipid Profileon 01-22-2025 Cholesterol in LDL [Mass/Vol] 169 mg/dL High 0-130 [facility] Comment on above: Performed By: #### L 506.0400, L500.4100, L501.9520, L506.1000, L500.4050, L100.0100 #### [facility] [address] [place], [address] HDL Normal [facility] Comment on above: Result Comment: REOR DERED The drugs N-Acetylcysteine and Metamizole may falsely depress this assay. Performed By: #### L 506.0400, L500.4100, L501.9520, L506.1000, L500.4050, L100.0100 #### [facility] [address] [place], [address] TRIG Normal [facility] Comment on above: Result Comment: SHOSHANA VU The drugs N-Acetylcysteine and Metamizole may falsely depress this assay. Performed By: #### L 506.0400, L500.4100, L501.9520, L506.1000, L500.4050, L100.0100 #### [facility] [address] [place], [address] CHOL Normal 200 [facility] Comment on above: Result Comment: SHOSHANA VU Performed By: #### L 506.0400, L500.4100, L501.9520, L506.1000, L500.4050, L100.0100 #### [facility] [address] [place], [address] LDL Normal 0-130 [facility] Comment on above: Result Comment: SHOSHANA VU Performed By: #### L 506.0400, L500.4100, L501.9520, L506.1000, L500.4050, L100.0100 #### [facility] [address] [place], [address] VLDL Normal 5-40 [facility] Comment on above: Result Comment: SHOSHANA VU Performed By: #### L 506.0400, L500.4100, L501.9520, L506.1000, L500.4050, L100.0100 #### [facility] [address] [place], [address] Low density lipoprotein (LDL ) cholesterol measurementOrdered By: Gaetano Tilley on 01-22-2025 Cholesterol in LDL [Mass/Vol] 169 mg/dL High 0-130 [facility] Lymphocytes Auto (Unsp spec) [#/Vol]Ordered By: Gaetano Tilley on 01-22-2025 Lymphocytes (Bld) [#/Vol] 1.65 10*3/uL 0.83-4.51 [facility] Lymphocytes/100 WBC Auto (Un sp spec)Ordered By: Gaetano Tilley on 01-22-2025 Lymphocytes/100 WBC (Bld) 35.1 % 19-41 [facility] MCV (mean corpuscular volume ) determinationOrdered By: Gaetano Tilley on 01-22-2025 MCV (RBC) [Entitic vol] 102.0 fL High 81-99 [facility] Mean corpuscular hemoglobin (MCH) determinationOrdered By: Gaetano Tilley on 01-22-2025 MCH (RBC) [Entitic mass] 32.7 pg High 27.0-32.0 [facility] Mean corpuscular hemoglobin concentration (MCHC) determinationOrdered By: Gaetano Tilley on 01-22-2025 MCHC (RBC) [Mass/Vol] 32.0 g/dL 32-36 [facility] Mean platelet volume determi nationOrdered By: Gaetano Tilley on 01-22-2025 Platelet mean volume (Bld) [Entitic vol] 10.0 fL 6.2-12.0 [facility] Microscopic analysis of urin e for red blood cells (RBC)Ordered By: Gaetano Tilley on 01-22-2025 Urine RBC 0 SEEN /hpf 0-5 [facility] Monocyte percentageOrdered B y: Gaetano Tilley on 01-22-2025 Monocytes/100 WBC (Bld) 8.3 % 0-10 [facility] Mucus LM Ql (Urine sed)Order ed By: Gaetano Tilley on 01-22-2025 Mucus Ql (Urine sed) 0 SEEN /hpf [facility] Neutrophil percentageOrdered By: Gaetano Tilley on 01-22-2025 Neutrophils/100 WBC (Bld) 53.0 % 47-70 [facility] Nitrite Test strip Ql (U)Ord ered By: Gaetano Tilley on 01-22-2025 Nitrite Ql (U) Negative Negative [facility] No Panel InformationOrdered By: Gaetano Tilley on 01-22-2025 Vitamin D 25-Hydroxy 18.5 ng/mL Low 30-100 [facility] Comment on above: Vitamin D StatusDefi ciency: <20 ng/mL (50nmol/L)Insufficiency: 20-30 ng/mL (50-75 nmol/L)Sufficiency: 30-100 ng/mL (75-250 nmol/L)Toxicity: >100 ng/mL (>250 nmol/L) Nucleated red blood cell per centageOrdered By: Gaetano Tilley on 01-22-2025 Nucleated RBC/100 WBC (Bld) [Ratio] 0 % 0-5 [facility] Platelet countOrdered By: Ting Tilley on 01-22-2025 Platelets (Bld) [#/Vol] 254 10*3/uL 150-450 [facility] Protein Test strip Ql (U)Ord ered By: Gaetano Tilley on 01-22-2025 Protein Ql (U) Negative Negative [facility] RBC Auto (Bld) [#/Vol]Ordere d By: Gaetano Tilley on 01-22-2025 RBC (Bld) [#/Vol] 4.01 10*6/uL Low 4.2-5.4 [facility] Serum globulin measurementOr dered By: Gaetano Tilley on 01-22-2025 Globulin (S) [Mass/Vol] 2.9 g/dL 2.2-4.2 [facility] Serum glucose measurement (m ass/volume)Ordered By: Gaetano Tilley on 01-22-2025 Glucose [Mass/Vol] 74 mg/dL 70-99 [facility] Serum or plasma alanine parkinson otransferase (ALT) measurementOrdered By: Gaetano Tilley on 01-22-2025 ALT [Catalytic activity/Vol] 22 U/L <35 [facility] Serum or plasma albumin lamine urement (mass/volume)Ordered By: Gaetano Tilley on 01-22-2025 Albumin [Mass/Vol] 4.1 g/dL 3.4-4.8 [facility] Serum or plasma albumin/glob ulin mass ratioOrdered By: Gaetano Tilley on 01-22-2025 Albumin/Globulin [Mass ratio] 1.4 {ratio} 0.9-2.4 [facility] Serum or plasma alkaline heike sphatase measurementOrdered By: Gaetano Tilley on 01-22-2025 ALP [Catalytic activity/Vol] 92 U/L 35-104 [facility] Serum or plasma anion gap de termination (moles/volume)Ordered By: Gaetano Tilley on 01-22-2025 Anion gap [Moles/Vol] 10 mmol/L 5-15 [facility] Serum or plasma calcium lamine urement (mass/volume)Ordered By: Gaetano Tilley on 01-22-2025 Calcium [Mass/Vol] 9.4 mg/dL 7.6-11.0 [facility] Serum or plasma cholesterol in HDL measurement (mass/volume)Ordered By: Gaetano Tilley on 01-22-2025 Cholesterol in HDL [Mass/Vol] 55 mg/dL >40 [facility] Comment on above: The drugs N-Acetylcy steine and Metamizole may falsely depress this assay. National Cholesterol Education Program (NCEP) guidelines:<40 mg/dL: Low HDL-cholesterol (major risk factor for CHD)>= 60 mg/dL: High HDL-cholesterol (negative risk factor for CHD)HDL-cholesterol is affected by a number of factors, e.g. smoking, exercise, hormones, sex and age. Serum or plasma cholesterol measurement (mass/volume)Ordered By: Gaetano Tilley on 01-22-2025 Cholesterol [Mass/Vol] 243 mg/dL High <201 [facility] Comment on above: Cholesterol level, D esirable <200 mg/dLBorderline high cholesterol 200-239 mg/dLHigh cholesterol >=240 mg/dLRecommendations of the NCEP Adult Treatment Panel for the following risk-cutoff thresholds for the [place] population. Serum or plasma potassium me asurementOrdered By: Gaetano Tilley on 01-22-2025 Potassium [Moles/Vol] 4.3 mmol/L 3.3-5.1 [facility] Serum or plasma sodium measu rement (moles/volume)Ordered By: Gaetano Tilley on 01-22-2025 Sodium [Moles/Vol] 141 mmol/L 133-145 [facility] Serum or plasma urea nitroge n measurement (mass/volume)Ordered By: Gaetano Tilley on 01-22-2025 Urea nitrogen [Mass/Vol] 22 mg/dL High 4-19 [facility] T4 Free Directon 01-22-2025 T4 FREE DIRECT 1.10 ng/dL Normal 0.76-1.46 [facility] Comment on above: Performed By: #### L 506.0400, L500.4100, L501.9520, L506.1000, L500.4050, L100.0100 #### [facility] [address] [place], [place], [id number] (361) T4 freeOrdered By: Gaetano hu on 01-22-2025 Free T4 [Mass/Vol] 1.10 ng/dL 0.76-1.46 [facility] TSH DL <= 0.005 mIU/L QnOrde red By: Gaetano Tilley on 01-22-2025 Thyroid Stimulating Hormone (TSH) 3.260 uIU/mL 0.300-4.200 [facility] Thyroid Stim Hormone (TSH)on 01-22-2025 TSH 3.260 uIU/mL Normal 0.300-4.200 [facility] Comment on above: Performed By: #### L 506.0400, L500.4100, L501.9520, L506.1000, L500.4050, L100.0100 #### [facility] [address] [place], [address] Total proteinOrdered By: Venkat Tilley on 01-22-2025 Protein [Mass/Vol] 7.0 g/dL 5.9-8.4 [facility] Triglycerides measurementOrd ered By: Gaetano Tilley on 01-22-2025 Triglyceride [Mass/Vol] 95 mg/dL <199 [facility] Comment on above: The drugs N-Acetylcy steine and Metamizole may falsely depress this assay. Normal range: <150 mg/dLBorderline High: 150-199 mg/dLHigh: 200-499 mg/dLVery High: >500 mg/dL Urinalysis, Completeon 01-22 RBC 0 SEEN Normal 0-5 [facility] Comment on above: Order Comment: Order Date: 10/24/24 Order Info: 018- - CBCD Performed By: #### L 506.0400, L500.4100, L501.9520, L506.1000, L500.4050, L100.0100 #### [facility] [address] [place], [address] WBC 0-5 SEEN Normal 0-5 [facility] Comment on above: Order Comment: Order Date: 10/24/24 Order Info: 018- - CBCD Performed By: #### L 506.0400, L500.4100, L501.9520, L506.1000, L500.4050, L100.0100 #### [facility] [address] [place], [address] BACTERIA 0 SEEN Normal None Seen [facility] Comment on above: Order Comment: Order Date: 10/24/24 Order Info: 018- - CBCD Performed By: #### L 506.0400, L500.4100, L501.9520, L506.1000, L500.4050, L100.0100 #### [facility] [address] [place], [address] EPI,SQUAMOUS 0 SEEN Normal 5-10 [facility] Comment on above: Order Comment: Order Date: 10/24/24 Order Info: 018- - CBCD Performed By: #### L 506.0400, L500.4100, L501.9520, L506.1000, L500.4050, L100.0100 #### [facility] [address] [place], [address] Mucus Ql (Urine sed) 0 SEEN Normal [facility] Comment on above: Order Comment: Order Date: 10/24/24 Order Info: 018- - CBCD Performed By: #### L 506.0400, L500.4100, L501.9520, L506.1000, L500.4050, L100.0100 #### [facility] [address] [place], [address] Urine blood detectionOrdered By: Gaetano Tilley on 01-22-2025 Urine Occult Blood Negative Negative [facility] Urine clarityOrdered By: Venkat Tilley on 01-22-2025 Clarity (U) Clear Clear [facility] Urine color determinationOrd ered By: Gaetano Tilley on 01-22-2025 Color (U) Yellow Yellow [facility] Urine leukocyte esterase det ection by dipstickOrdered By: Gaetano Tilley on 01-22-2025 Leukocyte esterase Test strip Ql (U) 25 /ul High Negative [facility] Urine pHOrdered By: Gaetano wilkerson on 01-22-2025 pH (U) 7.0 [pH] 5.0 - 8.0 [facility] Urine sediment bacteria coun t by microscopy (number/high power field)Ordered By: Gaetano Tilley on 01-22-2025 Bacteria LM.HPF (Urine sed) [#/Area] 0 /[HPF] None Seen [facility] Urine specific gravity measu rementOrdered By: Gaetano Tilley on 01-22-2025 Specific gravity (U) [Rel density] 1.010 1.002-1.030 [facility] Urobilinogen Ql (U)Ordered B y: Gaetano Tilley on 01-22-2025 Urine Urobilinogen Normal mg/dl Normal [facility] White blood cell (WBC) count Ordered By: Gaetano Tilley on 01-22-2025 WBC (Bld) [#/Vol] 4.7 10*3/uL 4.4-11.0 [facility] White blood cell countOrdere d By: Gaetano Tilley on 01-22-2025 Urine WBC 0-5 SEEN /hpf 0-5 [facility] 34-PF-Smuctrq DOrdered By: Valorie Tilley on 12-27-2024 Vitamin D 25-Hydroxy 38.9 ng/mL [facility] Comment on above: Vitamin D 25(OH) Sta tus Range Deficiency <20 ng/mL (50nmol/L) Insufficiency 20 - 30 ng/mL (50 - 75 nmol/L) Sufficiency 30 - 100 ng/mL (75 - 250 nmol/L) Toxicity >100 ng/mL (>250 nmol/L) Absolute neutrophil countOrd ered By: Gaetano Tilley on 12-27-2024 Neutrophils (Bld) [#/Vol] 1.4 10*3/uL Low 2.0-7.7 [facility] Albumin to globulin ratioOrd ered By: Gaetano Tilley on 12-27-2024 Albumin/Globulin [Mass ratio] 1.3 {ratio} 0.9-2.4 [facility] Basophil percentageOrdered B y: Gaetano Tilley on 12-27-2024 Basophils/100 WBC (Bld) 0.9 % 0-1 [facility] Bilirubin, totalOrdered By: Gaetano Tilley on 12-27-2024 Bilirubin [Mass/Vol] 0.50 mg/dL 0.20-1.00 [facility] Comment on above: For patients on eltr ombopag therapy, use of Dimension [place] TBIL is not recommended. Blood urea nitrogen (BUN)/cr eatinine ratioOrdered By: Gaetano Tilley on 12-27-2024 Urea nitrogen/Creatinine [Mass ratio] 18.0 mg/mg 10-20 [facility] CBC W/Diff, Automatedon 11-30 Absolute Lymph 1.67 X10 3/uL Normal 0.83-4.51 [facility] Comment on above: Order Comment: Order Date: 10/24/24 Order Info: 0184-1 - CBCD Performed By: #### L 506.0400, L500.4100, L501.9520, L506.1000, L500.4050, L100.0100 #### [facility] [address] [place], [address] Absolute Neut 1.4 X10 3/uL Low 2.0-7.7 [facility] Comment on above: Order Comment: Order Date: 10/24/24 Order Info: 0184-1 - CBCD Performed By: #### L 506.0400, L500.4100, L501.9520, L506.1000, L500.4050, L100.0100 #### [facility] [address] [place], [address] Basophils/100 WBC (Bld) 0.9 % Normal 0-1 [facility] Comment on above: Order Comment: Order Date: 10/24/24 Order Info: 0184-1 - CBCD Performed By: #### L 506.0400, L500.4100, L501.9520, L506.1000, L500.4050, L100.0100 #### [facility] [address] [place], [address] Eosinophils/100 WBC (Bld) 1.5 % Normal 0-5 [facility] Comment on above: Order Comment: Order Date: 10/24/24 Order Info: 0184-1 - CBCD Performed By: #### L 506.0400, L500.4100, L501.9520, L506.1000, L500.4050, L100.0100 #### [facility] [address] [place], [address] Erythrocyte distribution width (RBC) [Ratio] 13.4 % Normal 11.6-14.6 [facility] Comment on above: Order Comment: Order Date: 10/24/24 Order Info: 0184-1 - CBCD Performed By: #### L 506.0400, L500.4100, L501.9520, L506.1000, L500.4050, L100.0100 #### [facility] [address] [place], [address] Hematocrit (Bld) [Volume fraction] 40.1 % Normal 37-47 [facility] Comment on above: Order Comment: Order Date: 10/24/24 Order Info: 0184-1 - CBCD Performed By: #### L 506.0400, L500.4100, L501.9520, L506.1000, L500.4050, L100.0100 #### [facility] [address] [place], [address] Hemoglobin (Bld) [Mass/Vol] 13.0 g/dL Normal 12.0-15.0 [facility] Comment on above: Order Comment: Order Date: 10/24/24 Order Info: 0184-1 - CBCD Performed By: #### L 506.0400, L500.4100, L501.9520, L506.1000, L500.4050, L100.0100 #### [facility] [address] [place], [address] IG% 0.000 Normal 0.0-0.9 [facility] Comment on above: Order Comment: Order Date: 10/24/24 Order Info: 0184- - CBCD Result Comment: IG% - Immature Granulocytes (promyelocytes, myelocytes and metamyelocytes) > 1% indicates that a LEFT SHIFT is Present. Performed By: #### L 506.0400, L500.4100, L501.9520, L506.1000, L500.4050, L100.0100 #### [facility] [address] [place], [address] Lymphocytes/100 WBC (Bld) 49.0 % High 19-41 [facility] Comment on above: Order Comment: Order Date: 10/24/24 Order Info: 0184-1 - CBCD Performed By: #### L 506.0400, L500.4100, L501.9520, L506.1000, L500.4050, L100.0100 #### [facility] [address] [place], [address] MCH (RBC) [Entitic mass] 32.7 pg High 27.0-32.0 [facility] Comment on above: Order Comment: Order Date: 10/24/24 Order Info: 0184-1 - CBCD Performed By: #### L 506.0400, L500.4100, L501.9520, L506.1000, L500.4050, L100.0100 #### [facility] [address] [place], [address] MCHC (RBC) [Mass/Vol] 32.4 g/dL Normal 32-36 [facility] Comment on above: Order Comment: Order Date: 10/24/24 Order Info: 0184-1 - CBCD Performed By: #### L 506.0400, L500.4100, L501.9520, L506.1000, L500.4050, L100.0100 #### [facility] [address] [place], [address] MCV (RBC) [Entitic vol] 101.0 fL High 81-99 [facility] Comment on above: Order Comment: Order Date: 10/24/24 Order Info: 0184- - CBCD Performed By: #### L 506.0400, L500.4100, L501.9520, L506.1000, L500.4050, L100.0100 #### [facility] [address] [place], [address] Monocytes/100 WBC (Bld) 8.8 % Normal 0-10 [facility] Comment on above: Order Comment: Order Date: 10/24/24 Order Info: 0184- - CBCD Performed By: #### L 506.0400, L500.4100, L501.9520, L506.1000, L500.4050, L100.0100 #### [facility] [address] [place], [address] Neutrophils/100 WBC (Bld) 39.8 % Low 47-70 [facility] Comment on above: Order Comment: Order Date: 10/24/24 Order Info: 0184-1 - CBCD Performed By: #### L 506.0400, L500.4100, L501.9520, L506.1000, L500.4050, L100.0100 #### [facility] [address] [place], [address] Nucleated RBC (Bld) [#/Vol] 0 10*3/uL Normal 0-5 [facility] Comment on above: Order Comment: Order Date: 10/24/24 Order Info: 0184-1 - CBCD Performed By: #### L 506.0400, L500.4100, L501.9520, L506.1000, L500.4050, L100.0100 #### [facility] [address] [place], [address] Platelet mean volume (Bld) [Entitic vol] 9.8 fL Normal 6.2-12.0 [facility] Comment on above: Order Comment: Order Date: 10/24/24 Order Info: 0184-1 - CBCD Performed By: #### L 506.0400, L500.4100, L501.9520, L506.1000, L500.4050, L100.0100 #### [facility] [address] [place], [address] Platelets (Bld) [#/Vol] 247 10*3/uL Normal 150-450 [facility] Comment on above: Order Comment: Order Date: 10/24/24 Order Info: 0184-1 - CBCD Performed By: #### L 506.0400, L500.4100, L501.9520, L506.1000, L500.4050, L100.0100 #### [facility] [address] [place], [address] RBC (Bld) [#/Vol] 3.97 10*6/uL Low 4.2-5.4 [facility] Comment on above: Order Comment: Order Date: 10/24/24 Order Info: 0184-1 - CBCD Performed By: #### L 506.0400, L500.4100, L501.9520, L506.1000, L500.4050, L100.0100 #### [facility] [address] [place], [address] RDW SD 50.0 fl High 35.1-43.9 [facility] Comment on above: Order Comment: Order Date: 10/24/24 Order Info: 0184-1 - CBCD Performed By: #### L 506.0400, L500.4100, L501.9520, L506.1000, L500.4050, L100.0100 #### [facility] [address] [place], [address] WBC (Bld) [#/Vol] 3.4 10*3/uL Low 4.4-11.0 [facility] Comment on above: Order Comment: Order Date: 10/24/24 Order Info: 0184-1 - CBCD Performed By: #### L 506.0400, L500.4100, L501.9520, L506.1000, L500.4050, L100.0100 #### [facility] [address] [place], [address] Carbon dioxide measurementOr dered By: Gaetano Tilley on 12-27-2024 CO2 [Moles/Vol] 29.0 mmol/L 21.0-32.0 [facility] Chloride measurementOrdered By: Gaetano Tilley on 12-27-2024 Chloride [Moles/Vol] 108 mmol/L High 98-107 [facility] Comprehensive Metabolic Prof ilon 12-27-2024 Albumin [Mass/Vol] 3.9 g/dL Normal 3.2-5.0 [facility] Comment on above: Order Comment: Order Date: 10/24/24 Order Info: 0786-1 - CMP Order Info: 67475-5 - LIPID Order Date: 03/08/24 Order Info: [id number] - MG Order Info: 3016-3 - TSH Order Info: 3024-7 - T4F Performed By: #### L 506.0400, L500.4100, L501.9520, L506.1000, L500.4050, L100.0100 #### [facility] [address] [place], [address] Albumin/Globulin [Mass ratio] 1.3 {ratio} Normal 0.9-2.4 [facility] Comment on above: Order Comment: Order Date: 10/24/24 Order Info: 0786-1 - CMP Order Info: 89777-2 - LIPID Order Date: 03/08/24 Order Info: [id number] - MG Order Info: 3016-3 - TSH Order Info: 3024-7 - T4F Performed By: #### L 506.0400, L500.4100, L501.9520, L506.1000, L500.4050, L100.0100 #### [facility] [address] [place], [address] ALK P 53 U/L Normal 45-117 [facility] Comment on above: Order Comment: Order Date: 10/24/24 Order Info: 86-1 - CMP Order Info: 49513-1 - LIPID Order Date: 03/08/24 Order Info: 67224-5 - MG Order Info: 6-3 - TSH Order Info: 3024-7 - T4F Performed By: #### L 506.0400, L500.4100, L501.9520, L506.1000, L500.4050, L100.0100 #### [facility] [address] [place], [address] ALT [Catalytic activity/Vol] 18 U/L Normal 13-56 [facility] Comment on above: Order Comment: Order Date: 10/24/24 Order Info: 0786-1 - CMP Order Info: 44870-6 - LIPID Order Date: 03/08/24 Order Info: 49240-0 - MG Order Info: 3016-3 - TSH Order Info: 3024-7 - T4F Performed By: #### L 506.0400, L500.4100, L501.9520, L506.1000, L500.4050, L100.0100 #### [facility] [address] [place], [address] AST [Catalytic activity/Vol] 24 U/L Normal 15-37 [facility] Comment on above: Order Comment: Order Date: 10/24/24 Order Info: 0786-1 - CMP Order Info: [id number] - LIPID Order Date: 03/08/24 Order Info: [id number] - MG Order Info: 3 - TSH Order Info: 7 - T4F Performed By: #### L 506.0400, L500.4100, L501.9520, L506.1000, L500.4050, L100.0100 #### [facility] [address] [place], [address] Bilirubin [Mass/Vol] 0.50 mg/dL Normal 0.20-1.00 [facility] Comment on above: Order Comment: Order Date: 10/24/24 Order Info: 0786-1 - CMP Order Info: 76584-4 - LIPID Order Date: 03/08/24 Order Info: 92783-9 - MG Order Info: 3015-3 - TSH Order Info: 7 - T4F Result Comment: For patients on eltrombopag therapy, use of Dimension [place] TBIL is not recommended. Performed By: #### L 506.0400, L500.4100, L501.9520, L506.1000, L500.4050, L100.0100 #### [facility] [address] [place], [place], [id number] (244) BUN/CRE 18.0 RATIO Normal 10-20 [facility] Comment on above: Order Comment: Order Date: 10/24/24 Order Info: 0786-1 - CMP Order Info: 07488-7 - LIPID Order Date: 03/08/24 Order Info: 11344-1 - MG Order Info: 3015-3 - TSH Order Info: 3023-7 - T4F Performed By: #### L 506.0400, L500.4100, L501.9520, L506.1000, L500.4050, L100.0100 #### [facility] [address] [place], [address] CA,Total 9.2 mg/dL Normal 8.5-10.1 [facility] Comment on above: Order Comment: Order Date: 10/24/24 Order Info: 0786-1 - CMP Order Info: 13950-4 - LIPID Order Date: 03/08/24 Order Info: 29354-6 - MG Order Info: 3015-3 - TSH Order Info: 3024-7 - T4F Performed By: #### L 506.0400, L500.4100, L501.9520, L506.1000, L500.4050, L100.0100 #### [facility] [address] [place], [address] Chloride [Moles/Vol] 108 mmol/L High 98-107 [facility] Comment on above: Order Comment: Order Date: 10/24/24 Order Info: 86-1 - CMP Order Info: [id number] - LIPID Order Date: 03/08/24 Order Info: 55558-0 - MG Order Info: 3015-3 - TSH Order Info: 3024-7 - T4F Performed By: #### L 506.0400, L500.4100, L501.9520, L506.1000, L500.4050, L100.0100 #### [facility] [address] [place], [address] CO2 [Moles/Vol] 29.0 mmol/L Normal 21.0-32.0 [facility] Comment on above: Order Comment: Order Date: 10/24/24 Order Info: 785-1 - CMP Order Info: 12976-5 - LIPID Order Date: 03/08/24 Order Info: 14862-2 - MG Order Info: 3015-3 - TSH Order Info: 3024-7 - T4F Performed By: #### L 506.0400, L500.4100, L501.9520, L506.1000, L500.4050, L100.0100 #### [facility] [address] [place], [address] Creatinine [Mass/Vol] 0.72 mg/dL Normal 0.55-1.02 [facility] Comment on above: Order Comment: Order Date: 10/24/24 Order Info: 86-1 - CMP Order Info: [id number] - LIPID Order Date: 03/08/24 Order Info: 07644-9 - MG Order Info: 3 - TSH Order Info: 7 - T4F Result Comment: The validity of the calculated GFR GFRAA in patients over 70 years has not been determined. Clinical correlation is essential. Performed By: #### L 506.0400, L500.4100, L501.9520, L506.1000, L500.4050, L100.0100 #### [facility] [address] [place], [address] EST GFR - AA 103 mL/min Normal >60 [facility] Comment on above: Order Comment: Order Date: 10/24/24 Order Info: 0786-1 - CMP Order Info: [id number] - LIPID Order Date: 03/08/24 Order Info: 80743-2 - MG Order Info: 3 - TSH Order Info: 3024-05 - T4F Result Comment: Afri can Uzbek GFR Calc Performed By: #### L 506.0400, L500.4100, L501.9520, L506.1000, L500.4050, L100.0100 #### [facility] [address] [place], [place], [id number] GAP 3 Low 5-15 [facility] Comment on above: Order Comment: Order Date: 10/24/24 Order Info: 0786-1 - CMP Order Info: [id number] - LIPID Order Date: 03/08/24 Order Info: [id number] - MG Order Info: 3 - TSH Order Info: 7 - T4F Performed By: #### L 506.0400, L500.4100, L501.9520, L506.1000, L500.4050, L100.0100 #### [facility] [address] [place], [address] GFR/1.73 sq M.predicted among non-blacks MDRD (S/P/Bld) [Vol rate/Area] 85 mL/min/{1.73_m2} Normal >60 [facility] Comment on above: Order Comment: Order Date: 10/24/24 Order Info: 0786-1 - CMP Order Info: 93496-0 - LIPID Order Date: 03/08/24 Order Info: [id number] - MG Order Info: 3016-3 - TSH Order Info: 3024-7 - T4F Result Comment: Non- GFR Calc Performed By: #### L 506.0400, L500.4100, L501.9520, L506.1000, L500.4050, L100.0100 #### [facility] [address] [place], [address] Globulin (S) [Mass/Vol] 2.9 g/dL Normal 2.2-4.2 [facility] Comment on above: Order Comment: Order Date: 10/24/24 Order Info: 785-1 - CMP Order Info: 16833-7 - LIPID Order Date: 03/08/24 Order Info: 23615-7 - MG Order Info: 3015-3 - TSH Order Info: 302-7 - T4F Performed By: #### L 506.0400, L500.4100, L501.9520, L506.1000, L500.4050, L100.0100 #### [facility] [address] [place], [address] Glucose [Mass/Vol] 94 mg/dL Normal 74-106 [facility] Comment on above: Order Comment: Order Date: 10/24/24 Order Info: 0786-1 - CMP Order Info: 01254-7 - LIPID Order Date: 03/08/24 Order Info: 13989-4 - MG Order Info: 3016-3 - TSH Order Info: 3024-7 - T4F Performed By: #### L 506.0400, L500.4100, L501.9520, L506.1000, L500.4050, L100.0100 #### [facility] [address] [place], [address] Potassium [Moles/Vol] 4.0 mmol/L Normal 3.5-5.1 [facility] Comment on above: Order Comment: Order Date: 10/24/24 Order Info: 0786-1 - CMP Order Info: [id number] - LIPID Order Date: 03/08/24 Order Info: [id number] - MG Order Info: 3016-3 - TSH Order Info: 3024-7 - T4F Performed By: #### L 506.0400, L500.4100, L501.9520, L506.1000, L500.4050, L100.0100 #### [facility] [address] [place], [address] Sodium [Moles/Vol] 140 mmol/L Normal 136-145 [facility] Comment on above: Order Comment: Order Date: 10/24/24 Order Info: 0786-1 - CMP Order Info: 53638-5 - LIPID Order Date: 03/08/24 Order Info: 78075-0 - MG Order Info: 3016-3 - TSH Order Info: 3024-7 - T4F Performed By: #### L 506.0400, L500.4100, L501.9520, L506.1000, L500.4050, L100.0100 #### [facility] [address] [place], [address] T PROT 6.8 g/dL Normal 6.4-8.2 [facility] Comment on above: Order Comment: Order Date: 10/24/24 Order Info: 0786-1 - CMP Order Info: 70943-6 - LIPID Order Date: 03/08/24 Order Info: [id number] - MG Order Info: 3016-3 - TSH Order Info: 3024-7 - T4F Performed By: #### L 506.0400, L500.4100, L501.9520, L506.1000, L500.4050, L100.0100 #### [facility] [address] [place], [address] Urea nitrogen [Mass/Vol] 13 mg/dL Normal 7-18 [facility] Comment on above: Order Comment: Order Date: 10/24/24 Order Info: 0786-1 - CMP Order Info: [id number] - LIPID Order Date: 03/08/24 Order Info: [id number] - MG Order Info: 3016-3 - TSH Order Info: 3024-7 - T4F Performed By: #### L 506.0400, L500.4100, L501.9520, L506.1000, L500.4050, L100.0100 #### [facility] [address] [place], [address] Direct serum free thyroxine (FT4) measurementOrdered By: Gaetano Tilley on 12-27-2024 Free T4 [Mass/Vol] 0.92 ng/dL 0.76-1.46 [facility] Eosinophil percentageOrdered By: Gaetano Tilley on 12-27-2024 Eosinophils/100 WBC (Bld) 1.5 % 0-5 [facility] Erythrocyte distribution wid th ratioOrdered By: Gaetano Tilley on 12-27-2024 Erythrocyte distribution width (RBC) [Ratio] 13.4 % 11.6-14.6 [facility] Erythrocyte distribution wid th standard deviationOrdered By: Gaetano Tilley on 12-27-2024 Erythrocyte distribution width (RBC) [Entitic vol] 50.0 fL High 35.1-43.9 [facility] Estimated glomerular filtrat ion rate (GFR) AmericanOrdered By: Gaetano Tilley on 12-27-2024 Estimated GFR (MDRD) Amer 103 mL/min >60 [facility] Comment on above: GFR Calc Glomerular filtration rate ( GFR) estimationOrdered By: Gaetano Tilley on 12-27-2024 Estimated GFR (MDRD) Non-Af Amer 85 mL/min >60 [facility] Comment on above: Non- GFR Calc Glucose measurementOrdered B y: Gaetano Tilley on 12-27-2024 Glucose [Mass/Vol] 94 mg/dL 74-106 [facility] Hematocrit Auto (Bld) [Volum e fraction]Ordered By: Gaetano Tilley on 12-27-2024 Hematocrit (Bld) [Volume fraction] 40.1 % 37-47 [facility] Hemoglobin measurementOrdere d By: Gaetano Tilley on 12-27-2024 Hemoglobin (Bld) [Mass/Vol] 13.0 g/dL 12.0-15.0 [facility] High density lipoprotein (HD L) measurementOrdered By: Gaetano Tilley on 12-27-2024 Cholesterol in HDL [Mass/Vol] 76 mg/dL >40 [facility] Comment on above: The drugs N-Acetylcy steine and Metamizole may falsely depress this assay. Reference Range HDL <40 mg/dL Low HDL Cholesterol HDL >or= 60 mg/dL High HDL Cholesterol Immature granulocytes/100 WB C Auto (Bld)Ordered By: Gaetano Tilley on 12-27-2024 Immature granulocytes/100 WBC (Bld) 0.000 % 0.0-0.9 [facility] Comment on above: IG% - Immature Granu locytes (promyelocytes, myelocytes and metamyelocytes) > 1% indicates that a LEFT SHIFT is Present. Laboratory - Chemistry and C hemistry - challengeOrdered By: Gaetano Tilley on 12-27-2024 AST [Catalytic activity/Vol] 24 U/L 15-37 [facility] Lipid Profileon 12-27-2024 Cholesterol [Mass/Vol] 231 mg/dL High 200 [facility] Comment on above: Order Comment: Order Date: 10/24/24 Order Info: 0786-1 - CMP Order Info: [id number] - LIPID Order Date: 03/08/24 Order Info: [id number] - MG Order Info: 3016-3 - TSH Order Info: 3024-7 - T4F Result Comment: <200 mg/dL Desirable 200-240 mg/dL Borderline >240 mg/dL High Risk Performed By: #### L 506.0400, L500.4100, L501.9520, L506.1000, L500.4050, L100.0100 #### [facility] [address] [place], [address] Cholesterol in HDL [Mass/Vol] 76 mg/dL Normal [facility] Comment on above: Order Comment: Order Date: 10/24/24 Order Info: 0786-1 - CMP Order Info: [id number] - LIPID Order Date: 03/08/24 Order Info: [id number] - MG Order Info: 3016-3 - TSH Order Info: 3024-7 - T4F Result Comment: The drugs N-Acetylcysteine and Metamizole may falsely depress this assay. Reference Range HDL <40 mg/dL Low HDL Cholesterol HDL >or= 60 mg/dL High HDL Cholesterol Performed By: #### L 506.0400, L500.4100, L501.9520, L506.1000, L500.4050, L100.0100 #### [facility] [address] [place], [address] Cholesterol in LDL [Mass/Vol] 126 mg/dL Normal 0-130 [facility] Comment on above: Order Comment: Order Date: 10/24/24 Order Info: 0786-1 - CMP Order Info: [id number] - LIPID Order Date: 03/08/24 Order Info: [id number] - MG Order Info: 3 - TSH Order Info: 7 - T4F Performed By: #### L 506.0400, L500.4100, L501.9520, L506.1000, L500.4050, L100.0100 #### [facility] [address] [place], [address] Cholesterol in VLDL [Mass/Vol] 29 mg/dL Normal 5-40 [facility] Comment on above: Order Comment: Order Date: 10/24/24 Order Info: 0786-1 - CMP Order Info: 84087-2 - LIPID Order Date: 03/08/24 Order Info: 71388-1 - MG Order Info: 3015-3 - TSH Order Info: 3024-7 - T4F Performed By: #### L 506.0400, L500.4100, L501.9520, L506.1000, L500.4050, L100.0100 #### [facility] [address] [place], [address] Triglyceride [Mass/Vol] 147 mg/dL Normal [facility] Comment on above: Order Comment: Order Date: 10/24/24 Order Info: 0786-1 - CMP Order Info: [id number] - LIPID Order Date: 03/08/24 Order Info: [id number] - MG Order Info: 3016-3 - TSH Order Info: 3024-7 - T4F Result Comment: The drugs N-Acetylcysteine and Metamizole may falsely depress this assay. Serum Triglycerides Reference Interval Normal <150 mg/dL Borderline high 150 - 199 mg/dL High 200 - 499 mg/dL Very High > or = 500 mg/dL Performed By: #### L 506.0400, L500.4100, L501.9520, L506.1000, L500.4050, L100.0100 #### [facility] [address] [place], [address] Low density lipoprotein (LDL ) cholesterol measurementOrdered By: Gaetano Tilley on 12-27-2024 Cholesterol in LDL [Mass/Vol] 126 mg/dL 0-130 [facility] Lymphocytes Auto (Unsp spec) [#/Vol]Ordered By: Gaetano Tilley on 12-27-2024 Lymphocytes (Bld) [#/Vol] 1.67 10*3/uL 0.83-4.51 [facility] Lymphocytes/100 WBC Auto (Un sp spec)Ordered By: Gaetano Tilley on 12-27-2024 Lymphocytes/100 WBC (Bld) 49.0 % High 19-41 [facility] MCV (mean corpuscular volume ) determinationOrdered By: Gaetano Tilley on 12-27-2024 MCV (RBC) [Entitic vol] 101.0 fL High 81-99 [facility] Magnesiumon 12-27-2024 Magnesium [Mass/Vol] 2.3 mg/dL Normal 1.6-2.6 [facility] Comment on above: Order Comment: Order Date: 10/24/24 Order Info: 0184-1 - CBCD Performed By: #### L 506.0400, L500.4100, L501.9520, L506.1000, L500.4050, L100.0100 #### [facility] [address] [place], [address] Magnesium measurementOrdered By: Gaetano Tilley on 12-27-2024 Magnesium [Mass/Vol] 2.3 mg/dL 1.6-2.6 [facility] Mean corpuscular hemoglobin (MCH) determinationOrdered By: Gaetano Tilley on 12-27-2024 MCH (RBC) [Entitic mass] 32.7 pg High 27.0-32.0 [facility] Mean corpuscular hemoglobin concentration (MCHC) determinationOrdered By: Gaetano Tilley on 12-27-2024 MCHC (RBC) [Mass/Vol] 32.4 g/dL 32-36 [facility] Mean platelet volume determi nationOrdered By: Gaetano Tilley on 12-27-2024 Platelet mean volume (Bld) [Entitic vol] 9.8 fL 6.2-12.0 [facility] Monocyte percentageOrdered B y: Gaetano Tilley on 12-27-2024 Monocytes/100 WBC (Bld) 8.8 % 0-10 [facility] Neutrophil percentageOrdered By: Gaetano Tilley on 12-27-2024 Neutrophils/100 WBC (Bld) 39.8 % Low 47-70 [facility] Nucleated red blood cell per centageOrdered By: Gaetano Tilley on 12-27-2024 Nucleated RBC/100 WBC (Bld) [Ratio] 0 % 0-5 [facility] Platelet countOrdered By: Ting Tilley on 12-27-2024 Platelets (Bld) [#/Vol] 247 10*3/uL 150-450 [facility] Potassium measurementOrdered By: Gaetano Tilley on 12-27-2024 Potassium [Moles/Vol] 4.0 mmol/L 3.5-5.1 [facility] RBC Auto (Bld) [#/Vol]Ordere d By: Gaetano Tilley on 12-27-2024 RBC (Bld) [#/Vol] 3.97 10*6/uL Low 4.2-5.4 [facility] Serum anion gap measurementO rdered By: Gaetano Tilley on 12-27-2024 Anion gap [Moles/Vol] 3 mmol/L Low 5-15 [facility] Serum globulin measurementOr dered By: Gaetano Tilley on 12-27-2024 Globulin (S) [Mass/Vol] 2.9 g/dL 2.2-4.2 [facility] Serum or plasma alanine parkinson otransferase (ALT) measurementOrdered By: Gaetano Tilley on 12-27-2024 ALT [Catalytic activity/Vol] 18 U/L 13-56 [facility] Serum or plasma albumin lamine urement (mass/volume)Ordered By: Gaetano Tilley on 12-27-2024 Albumin [Mass/Vol] 3.9 g/dL 3.2-5.0 [facility] Serum or plasma alkaline heike sphatase measurementOrdered By: Gaetano Tilley on 12-27-2024 ALP [Catalytic activity/Vol] 53 U/L 45-117 [facility] Serum or plasma calcium lamine urement (mass/volume)Ordered By: Gaetano Tilley on 12-27-2024 Calcium [Mass/Vol] 9.2 mg/dL 8.5-10.1 [facility] Serum or plasma cholesterol measurement (mass/volume)Ordered By: Gaetano Tilley on 12-27-2024 Cholesterol [Mass/Vol] 231 mg/dL High <200 [facility] Comment on above: <200 mg/dL Desirable 200-240 mg/dL Borderline >240 mg/dL High Risk Serum or plasma creatinine m easurement (mass/volume)Ordered By: Gaetano Tilley on 12-27-2024 Creatinine [Mass/Vol] 0.72 mg/dL 0.55-1.02 [facility] Comment on above: The validity of the calculated GFR & GFRAA in patients over 70 years has not been determined. Clinical correlation is essential. Serum or plasma urea nitroge n measurement (mass/volume)Ordered By: Gaetano Tilley on 12-27-2024 Urea nitrogen [Mass/Vol] 13 mg/dL 7-18 [facility] Sodium levelOrdered By: Gaetano Tilley on 12-27-2024 Sodium [Moles/Vol] 140 mmol/L 136-145 [facility] T4 Free Directon 12-27-2024 T4 FREE DIRECT 0.92 ng/dL Normal 0.76-1.46 [facility] Comment on above: Order Comment: Order Date: 10/24/24 Order Info: [id number] - CMP Order Info: [id number] - LIPID Order Date: 03/08/24 Order Info: [id number] - MG Order Info: 3016-3 - TSH Order Info: 3024-7 - T4F Performed By: #### L 506.0400, L500.4100, L501.9520, L506.1000, L500.4050, L100.0100 #### [facility] [address] [place], [place], [id number] TSH QnOrdered By: Gaetano grace on 12-27-2024 Thyroid Stimulating Hormone (TSH) 5.190 uIU/mL High 0.358-3.740 [facility] Thyroid Stim Hormone (TSH)on 12-27-2024 TSH 5.190 uIU/mL High 0.358-3.740 [facility] Comment on above: Order Comment: Order Date: 10/24/24 Order Info: [id number] - CMP Order Info: [id number] - LIPID Order Date: 03/08/24 Order Info: [id number] - MG Order Info: 3016-3 - TSH Order Info: 7 - T4F Performed By: #### L 506.0400, L500.4100, L501.9520, L506.1000, L500.4050, L100.0100 #### [facility] [address] [place], [place], [id number] Total proteinOrdered By: Venkat Tilley on 12-27-2024 Protein [Mass/Vol] 6.8 g/dL 6.4-8.2 [facility] Triglycerides measurementOrd ered By: Gaetano Tilley on 12-27-2024 Triglyceride [Mass/Vol] 147 mg/dL <199 [facility] Comment on above: The drugs N-Acetylcy steine and Metamizole may falsely depress this assay.Serum Triglycerides Reference Interval Normal <150 mg/dL Borderline high 150 - 199 mg/dL High 200 - 499 mg/dL Very High > or = 500 mg/dL Very low density lipoprotein (VLDL) cholesterol measurementOrdered By: Gaetano Tilley on 12-27-2024 VLDL Cholesterol 29 mg/dL 5-40 [facility] Vitamin D,25 Hydroxyon 12-27 Vitamin D 25-OH 38.9 ng/mL Normal [facility] Comment on above: Order Comment: Order Date: 10/24/24 Order Info: [id number] - VITD25 Result Comment: Libby min D 25(OH) Status Range Deficiency <20 ng/mL (50nmol/L) Insufficiency 20 - 30 ng/mL (50 - 75 nmol/L) Sufficiency 30 - 100 ng/mL (75 - 250 nmol/L) Toxicity >100 ng/mL (>250 nmol/L) Performed By: #### L 506.0400, L500.4100, L501.9520, L506.1000, L500.4050, L100.0100 #### [facility] [address] [place], [address] White blood cell (WBC) count Ordered By: Gaetano Tilley on 12-27-2024 WBC (Bld) [#/Vol] 3.4 10*3/uL Low 4.4-11.0 [facility] 12-XN-Ghfzqzp DOrdered By: Valorie Tilley on 10-08-2024 Vitamin D 25-Hydroxy 31.8 ng/mL [facility] Comment on above: Vitamin D 25(OH) Sta tus Range Deficiency <20 ng/mL (50nmol/L) Insufficiency 20 - 30 ng/mL (50 - 75 nmol/L) Sufficiency 30 - 100 ng/mL (75 - 250 nmol/L) Toxicity >100 ng/mL (>250 nmol/L) Absolute neutrophil countOrd ered By: Gaetano Tilley on 10-08-2024 Neutrophils (Bld) [#/Vol] 2.1 10*3/uL 2.0-7.7 [facility] Albumin to globulin ratioOrd ered By: Gaetano Tilley on 10-08-2024 Albumin/Globulin [Mass ratio] 1.3 {ratio} 0.9-2.4 [facility] Basophil percentageOrdered B y: Gaetano Tilley on 10-08-2024 Basophils/100 WBC (Bld) 0.8 % 0-1 [facility] Bilirubin, totalOrdered By: Gaetano Tilley on 10-08-2024 Bilirubin [Mass/Vol] 0.50 mg/dL 0.20-1.00 [facility] Comment on above: For patients on eltr ombopag therapy, use of Dimension [place] TBIL is not recommended. Blood urea nitrogen (BUN)/cr eatinine ratioOrdered By: Gaetano Tilley on 10-08-2024 Urea nitrogen/Creatinine [Mass ratio] 16.1 mg/mg 10-20 [facility] CBC W/Diff, Automatedon 09-28 Absolute Lymph 2.32 X10 3/uL Normal 0.83-4.51 [facility] Comment on above: Order Comment: Order Date: 10/24/24 Order Info: 0184-1 - CBCD Performed By: #### L 506.0400, L500.4100, L501.9520, L506.1000, L500.4050, L100.0100 #### [facility] [address] [place], [address] Absolute Neut 2.1 X10 3/uL Normal 2.0-7.7 [facility] Comment on above: Order Comment: Order Date: 10/24/24 Order Info: 0184-1 - CBCD Performed By: #### L 506.0400, L500.4100, L501.9520, L506.1000, L500.4050, L100.0100 #### [facility] [address] [place], [address] Basophils/100 WBC (Bld) 0.8 % Normal 0-1 [facility] Comment on above: Order Comment: Order Date: 10/24/24 Order Info: 0184-1 - CBCD Performed By: #### L 506.0400, L500.4100, L501.9520, L506.1000, L500.4050, L100.0100 #### [facility] [address] [place], [address] Eosinophils/100 WBC (Bld) 1.0 % Normal 0-5 [facility] Comment on above: Order Comment: Order Date: 10/24/24 Order Info: 0184-1 - CBCD Performed By: #### L 506.0400, L500.4100, L501.9520, L506.1000, L500.4050, L100.0100 #### [facility] [address] [place], [address] Erythrocyte distribution width (RBC) [Ratio] 14.6 % Normal 11.6-14.6 [facility] Comment on above: Order Comment: Order Date: 10/24/24 Order Info: 0184-1 - CBCD Performed By: #### L 506.0400, L500.4100, L501.9520, L506.1000, L500.4050, L100.0100 #### [facility] [address] [place], [address] Hematocrit (Bld) [Volume fraction] 41.3 % Normal 37-47 [facility] Comment on above: Order Comment: Order Date: 10/24/24 Order Info: 0184-1 - CBCD Performed By: #### L 506.0400, L500.4100, L501.9520, L506.1000, L500.4050, L100.0100 #### [facility] [address] [place], [address] Hemoglobin (Bld) [Mass/Vol] 13.7 g/dL Normal 12.0-15.0 [facility] Comment on above: Order Comment: Order Date: 10/24/24 Order Info: 0184-1 - CBCD Performed By: #### L 506.0400, L500.4100, L501.9520, L506.1000, L500.4050, L100.0100 #### [facility] [address] [place], [address] IG% 0.200 Normal 0.0-0.9 [facility] Comment on above: Order Comment: Order Date: 10/24/24 Order Info: 0184-1 - CBCD Result Comment: IG% - Immature Granulocytes (promyelocytes, myelocytes and metamyelocytes) > 1% indicates that a LEFT SHIFT is Present. Performed By: #### L 506.0400, L500.4100, L501.9520, L506.1000, L500.4050, L100.0100 #### [facility] [address] [place], [address] Lymphocytes/100 WBC (Bld) 47.0 % High 19-41 [facility] Comment on above: Order Comment: Order Date: 10/24/24 Order Info: 0184-1 - CBCD Performed By: #### L 506.0400, L500.4100, L501.9520, L506.1000, L500.4050, L100.0100 #### [facility] [address] [place], [address] MCH (RBC) [Entitic mass] 32.5 pg High 27.0-32.0 [facility] Comment on above: Order Comment: Order Date: 10/24/24 Order Info: 0184-1 - CBCD Performed By: #### L 506.0400, L500.4100, L501.9520, L506.1000, L500.4050, L100.0100 #### [facility] [address] [place], [address] MCHC (RBC) [Mass/Vol] 33.2 g/dL Normal 32-36 [facility] Comment on above: Order Comment: Order Date: 10/24/24 Order Info: 0184-1 - CBCD Performed By: #### L 506.0400, L500.4100, L501.9520, L506.1000, L500.4050, L100.0100 #### [facility] [address] [place], [address] MCV (RBC) [Entitic vol] 98.1 fL Normal 81-99 [facility] Comment on above: Order Comment: Order Date: 10/24/24 Order Info: 0184- - CBCD Performed By: #### L 506.0400, L500.4100, L501.9520, L506.1000, L500.4050, L100.0100 #### [facility] [address] [place], [address] Monocytes/100 WBC (Bld) 8.7 % Normal 0-10 [facility] Comment on above: Order Comment: Order Date: 10/24/24 Order Info: 018- - CBCD Performed By: #### L 506.0400, L500.4100, L501.9520, L506.1000, L500.4050, L100.0100 #### [facility] [address] [place], [address] Neutrophils/100 WBC (Bld) 42.3 % Low 47-70 [facility] Comment on above: Order Comment: Order Date: 10/24/24 Order Info: 0184- - CBCD Performed By: #### L 506.0400, L500.4100, L501.9520, L506.1000, L500.4050, L100.0100 #### [facility] [address] [place], [address] Nucleated RBC (Bld) [#/Vol] 0 10*3/uL Normal 0-5 [facility] Comment on above: Order Comment: Order Date: 10/24/24 Order Info: 0184- - CBCD Performed By: #### L 506.0400, L500.4100, L501.9520, L506.1000, L500.4050, L100.0100 #### [facility] [address] [place], [address] Platelet mean volume (Bld) [Entitic vol] 9.9 fL Normal 6.2-12.0 [facility] Comment on above: Order Comment: Order Date: 10/24/24 Order Info: 0184- - CBCD Performed By: #### L 506.0400, L500.4100, L501.9520, L506.1000, L500.4050, L100.0100 #### [facility] [address] [place], [address] Platelets (Bld) [#/Vol] 293 10*3/uL Normal 150-450 [facility] Comment on above: Order Comment: Order Date: 10/24/24 Order Info: 0184-1 - CBCD Performed By: #### L 506.0400, L500.4100, L501.9520, L506.1000, L500.4050, L100.0100 #### [facility] [address] [place], [address] RBC (Bld) [#/Vol] 4.21 10*6/uL Normal 4.2-5.4 [facility] Comment on above: Order Comment: Order Date: 10/24/24 Order Info: 0184-1 - CBCD Performed By: #### L 506.0400, L500.4100, L501.9520, L506.1000, L500.4050, L100.0100 #### [facility] [address] [place], [address] RDW SD 53.0 fl High 35.1-43.9 [facility] Comment on above: Order Comment: Order Date: 10/24/24 Order Info: 0184-1 - CBCD Performed By: #### L 506.0400, L500.4100, L501.9520, L506.1000, L500.4050, L100.0100 #### [facility] [address] [place], [address] WBC (Bld) [#/Vol] 4.9 10*3/uL Normal 4.4-11.0 [facility] Comment on above: Order Comment: Order Date: 10/24/24 Order Info: 0184-1 - CBCD Performed By: #### L 506.0400, L500.4100, L501.9520, L506.1000, L500.4050, L100.0100 #### [facility] [address] [place], [address] Carbon dioxide measurementOr dered By: Gaetano Tilley on 10-08-2024 CO2 [Moles/Vol] 26.0 mmol/L 21.0-32.0 [facility] Chloride measurementOrdered By: Gaetano Tilley on 10-08-2024 Chloride [Moles/Vol] 107 mmol/L 98-107 [facility] Comprehensive Metabolic Prof ilon 10-08-2024 Albumin [Mass/Vol] 4.0 g/dL Normal 3.2-5.0 [facility] Comment on above: Order Comment: Order Date: 10/24/24 Order Info: 0184-1 - CBCD Performed By: #### L 506.0400, L500.4100, L501.9520, L506.1000, L500.4050, L100.0100 #### [facility] [address] [place], [address] Albumin/Globulin [Mass ratio] 1.3 {ratio} Normal 0.9-2.4 [facility] Comment on above: Order Comment: Order Date: 10/24/24 Order Info: 0184-1 - CBCD Performed By: #### L 506.0400, L500.4100, L501.9520, L506.1000, L500.4050, L100.0100 #### [facility] [address] [place], [address] ALK P 59 U/L Normal 45-117 [facility] Comment on above: Order Comment: Order Date: 10/24/24 Order Info: 0184-1 - CBCD Performed By: #### L 506.0400, L500.4100, L501.9520, L506.1000, L500.4050, L100.0100 #### [facility] [address] [place], [address] ALT [Catalytic activity/Vol] 20 U/L Normal 13-56 [facility] Comment on above: Order Comment: Order Date: 10/24/24 Order Info: 0184-1 - CBCD Performed By: #### L 506.0400, L500.4100, L501.9520, L506.1000, L500.4050, L100.0100 #### [facility] [address] [place], [address] AST [Catalytic activity/Vol] 20 U/L Normal 15-37 [facility] Comment on above: Order Comment: Order Date: 10/24/24 Order Info: 0184-1 - CBCD Performed By: #### L 506.0400, L500.4100, L501.9520, L506.1000, L500.4050, L100.0100 #### [facility] [address] [place], [address] Bilirubin [Mass/Vol] 0.50 mg/dL Normal 0.20-1.00 [facility] Comment on above: Order Comment: Order Date: 10/24/24 Order Info: 0184-1 - CBCD Result Comment: For patients on eltrombopag therapy, use of Dimension [place] TBIL is not recommended. Performed By: #### L 506.0400, L500.4100, L501.9520, L506.1000, L500.4050, L100.0100 #### [facility] [address] [place], [address] BUN/CRE 16.1 RATIO Normal 10-20 [facility] Comment on above: Order Comment: Order Date: 10/24/24 Order Info: 0184-1 - CBCD Performed By: #### L 506.0400, L500.4100, L501.9520, L506.1000, L500.4050, L100.0100 #### [facility] [address] [place], [address] CA,Total 9.4 mg/dL Normal 8.5-10.1 [facility] Comment on above: Order Comment: Order Date: 10/24/24 Order Info: 0184-1 - CBCD Performed By: #### L 506.0400, L500.4100, L501.9520, L506.1000, L500.4050, L100.0100 #### [facility] [address] [place], [address] Chloride [Moles/Vol] 107 mmol/L Normal 98-107 [facility] Comment on above: Order Comment: Order Date: 10/24/24 Order Info: 0184- - CBCD Performed By: #### L 506.0400, L500.4100, L501.9520, L506.1000, L500.4050, L100.0100 #### [facility] [address] [place], [place], [id number] (390) CO2 [Moles/Vol] 26.0 mmol/L Normal 21.0-32.0 [facility] Comment on above: Order Comment: Order Date: 10/24/24 Order Info: 0184- - CBCD Performed By: #### L 506.0400, L500.4100, L501.9520, L506.1000, L500.4050, L100.0100 #### [facility] [address] [place], [address] Creatinine [Mass/Vol] 0.74 mg/dL Normal 0.55-1.02 [facility] Comment on above: Order Comment: Order Date: 10/24/24 Order Info: 0184- - CBCD Result Comment: The validity of the calculated GFR GFRAA in patients over 70 years has not been determined. Clinical correlation is essential. Performed By: #### L 506.0400, L500.4100, L501.9520, L506.1000, L500.4050, L100.0100 #### [facility] [address] [place], [address] EST GFR - AA 100 mL/min Normal >60 [facility] Comment on above: Order Comment: Order Date: 10/24/24 Order Info: 0184- - CBCD Result Comment: Afri can Uzbek GFR Calc Performed By: #### L 506.0400, L500.4100, L501.9520, L506.1000, L500.4050, L100.0100 #### [facility] [address] [place], [place], [id number] GAP 8 Normal 5-15 [facility] Comment on above: Order Comment: Order Date: 10/24/24 Order Info: 0184 - CBCD Performed By: #### L 506.0400, L500.4100, L501.9520, L506.1000, L500.4050, L100.0100 #### [facility] [address] [place], [address] GFR/1.73 sq M.predicted among non-blacks MDRD (S/P/Bld) [Vol rate/Area] 83 mL/min/{1.73_m2} Normal >60 [facility] Comment on above: Order Comment: Order Date: 10/24/24 Order Info: 0184- - CBCD Result Comment: Non- GFR Calc Performed By: #### L 506.0400, L500.4100, L501.9520, L506.1000, L500.4050, L100.0100 #### [facility] [address] [place], [address] Globulin (S) [Mass/Vol] 3.0 g/dL Normal 2.2-4.2 [facility] Comment on above: Order Comment: Order Date: 10/24/24 Order Info: 0184- - CBCD Performed By: #### L 506.0400, L500.4100, L501.9520, L506.1000, L500.4050, L100.0100 #### [facility] [address] [place], [address] Glucose [Mass/Vol] 87 mg/dL Normal 74-106 [facility] Comment on above: Order Comment: Order Date: 10/24/24 Order Info: 0184-1 - CBCD Performed By: #### L 506.0400, L500.4100, L501.9520, L506.1000, L500.4050, L100.0100 #### [facility] [address] [place], [address] Potassium [Moles/Vol] 3.6 mmol/L Normal 3.5-5.1 [facility] Comment on above: Order Comment: Order Date: 10/24/24 Order Info: 0184- - CBCD Performed By: #### L 506.0400, L500.4100, L501.9520, L506.1000, L500.4050, L100.0100 #### [facility] [address] [place], [address] Sodium [Moles/Vol] 141 mmol/L Normal 136-145 [facility] Comment on above: Order Comment: Order Date: 10/24/24 Order Info: 0184- - CBCD Performed By: #### L 506.0400, L500.4100, L501.9520, L506.1000, L500.4050, L100.0100 #### [facility] [address] [place], [address] T PROT 7.0 g/dL Normal 6.4-8.2 [facility] Comment on above: Order Comment: Order Date: 10/24/24 Order Info: 0184-1 - CBCD Performed By: #### L 506.0400, L500.4100, L501.9520, L506.1000, L500.4050, L100.0100 #### [facility] [address] [place], [address] Urea nitrogen [Mass/Vol] 12 mg/dL Normal 7-18 [facility] Comment on above: Order Comment: Order Date: 10/24/24 Order Info: 0184-1 - CBCD Performed By: #### L 506.0400, L500.4100, L501.9520, L506.1000, L500.4050, L100.0100 #### [facility] [address] [place], [address] Direct serum free thyroxine (FT4) measurementOrdered By: Gaetano Tilley on 10-08-2024 Free T4 [Mass/Vol] 0.95 ng/dL 0.76-1.46 [facility] Eosinophil percentageOrdered By: Gaetano Tilley on 10-08-2024 Eosinophils/100 WBC (Bld) 1.0 % 0-5 [facility] Erythrocyte distribution wid th ratioOrdered By: Gaetano Tilley on 10-08-2024 Erythrocyte distribution width (RBC) [Ratio] 14.6 % 11.6-14.6 [facility] Erythrocyte distribution wid th standard deviationOrdered By: Gaetano Tilley on 10-08-2024 Erythrocyte distribution width (RBC) [Entitic vol] 53.0 fL High 35.1-43.9 [facility] Estimated glomerular filtrat ion rate (GFR) AmericanOrdered By: Gaetano Tilley on 10-08-2024 Estimated GFR (MDRD) Amer 100 mL/min >60 [facility] Comment on above: GFR Calc Glomerular filtration rate ( GFR) estimationOrdered By: Gaetano Tilley on 10-08-2024 Estimated GFR (MDRD) Non-Af Amer 83 mL/min >60 [facility] Comment on above: Non- GFR Calc Glucose measurementOrdered B y: Gaetano Tilley on 10-08-2024 Glucose [Mass/Vol] 87 mg/dL 74-106 [facility] Hematocrit Auto (Bld) [Volum e fraction]Ordered By: Gaetano Tilley on 10-08-2024 Hematocrit (Bld) [Volume fraction] 41.3 % 37-47 [facility] Hemoglobin measurementOrdere d By: Gaetano Tilley on 10-08-2024 Hemoglobin (Bld) [Mass/Vol] 13.7 g/dL 12.0-15.0 [facility] High density lipoprotein (HD L) measurementOrdered By: Gaetano Tilley on 10-08-2024 Cholesterol in HDL [Mass/Vol] 80 mg/dL >40 [facility] Comment on above: The drugs N-Acetylcy steine and Metamizole may falsely depress this assay. Reference Range HDL <40 mg/dL Low HDL Cholesterol HDL >or= 60 mg/dL High HDL Cholesterol Immature granulocytes/100 WB C Auto (Bld)Ordered By: Gaetano Tilley on 10-08-2024 Immature granulocytes/100 WBC (Bld) 0.200 % 0.0-0.9 [facility] Comment on above: IG% - Immature Granu locytes (promyelocytes, myelocytes and metamyelocytes) > 1% indicates that a LEFT SHIFT is Present. Laboratory - Chemistry and C hemistry - challengeOrdered By: Gaetano Tilley on 10-08-2024 AST [Catalytic activity/Vol] 20 U/L 15-37 [facility] Lipid Profileon 10-08-2024 Cholesterol [Mass/Vol] 341 mg/dL High 200 [facility] Comment on above: Order Comment: Order Date: 10/24/24 Order Info: 0184-1 - CBCD Result Comment: <200 mg/dL Desirable 200-240 mg/dL Borderline >240 mg/dL High Risk Performed By: #### L 506.0400, L500.4100, L501.9520, L506.1000, L500.4050, L100.0100 #### [facility] [address] [place], [address] Cholesterol in HDL [Mass/Vol] 80 mg/dL Normal [facility] Comment on above: Order Comment: Order Date: 10/24/24 Order Info: 0184-1 - CBCD Result Comment: The drugs N-Acetylcysteine and Metamizole may falsely depress this assay. Reference Range HDL <40 mg/dL Low HDL Cholesterol HDL >or= 60 mg/dL High HDL Cholesterol Performed By: #### L 506.0400, L500.4100, L501.9520, L506.1000, L500.4050, L100.0100 #### [facility] [address] [place], [address] Cholesterol in LDL [Mass/Vol] 224 mg/dL High 0-130 [facility] Comment on above: Order Comment: Order Date: 10/24/24 Order Info: 0184-1 - CBCD Performed By: #### L 506.0400, L500.4100, L501.9520, L506.1000, L500.4050, L100.0100 #### [facility] [address] [place], [address] Cholesterol in VLDL [Mass/Vol] 37 mg/dL Normal 5-40 [facility] Comment on above: Order Comment: Order Date: 10/24/24 Order Info: 0184-1 - CBCD Performed By: #### L 506.0400, L500.4100, L501.9520, L506.1000, L500.4050, L100.0100 #### [facility] [address] [place], [address] Triglyceride [Mass/Vol] 184 mg/dL Normal [facility] Comment on above: Order Comment: Order Date: 10/24/24 Order Info: 0184-1 - CBCD Result Comment: The drugs N-Acetylcysteine and Metamizole may falsely depress this assay. Serum Triglycerides Reference Interval Normal <150 mg/dL Borderline high 150 - 199 mg/dL High 200 - 499 mg/dL Very High > or = 500 mg/dL Performed By: #### L 506.0400, L500.4100, L501.9520, L506.1000, L500.4050, L100.0100 #### [facility] [address] [place], [address] Low density lipoprotein (LDL ) cholesterol measurementOrdered By: Gaetano Tilley on 10-08-2024 Cholesterol in LDL [Mass/Vol] 224 mg/dL High 0-130 [facility] Lymphocytes Auto (Unsp spec) [#/Vol]Ordered By: Gaetano Tilley on 10-08-2024 Lymphocytes (Bld) [#/Vol] 2.32 10*3/uL 0.83-4.51 [facility] Lymphocytes/100 WBC Auto (Un sp spec)Ordered By: Gaetano Tilley on 10-08-2024 Lymphocytes/100 WBC (Bld) 47.0 % High 19-41 [facility] MCV (mean corpuscular volume ) determinationOrdered By: Gaetano Tilley on 10-08-2024 MCV (RBC) [Entitic vol] 98.1 fL 81-99 [facility] Mean corpuscular hemoglobin (MCH) determinationOrdered By: Gaetano Tilley on 10-08-2024 MCH (RBC) [Entitic mass] 32.5 pg High 27.0-32.0 [facility] Mean corpuscular hemoglobin concentration (MCHC) determinationOrdered By: Gaetano Tilley on 10-08-2024 MCHC (RBC) [Mass/Vol] 33.2 g/dL 32-36 [facility] Mean platelet volume determi nationOrdered By: Gaetano Tilley on 10-08-2024 Platelet mean volume (Bld) [Entitic vol] 9.9 fL 6.2-12.0 [facility] Monocyte percentageOrdered B y: Gaetano Tilley on 10-08-2024 Monocytes/100 WBC (Bld) 8.7 % 0-10 [facility] Neutrophil percentageOrdered By: Gaetano Tilley on 10-08-2024 Neutrophils/100 WBC (Bld) 42.3 % Low 47-70 [facility] Nucleated red blood cell per centageOrdered By: Gaetano Tilley on 10-08-2024 Nucleated RBC/100 WBC (Bld) [Ratio] 0 % 0-5 [facility] Platelet countOrdered By: Ting Tilley on 10-08-2024 Platelets (Bld) [#/Vol] 293 10*3/uL 150-450 [facility] Potassium measurementOrdered By: Gaetano Tilley on 10-08-2024 Potassium [Moles/Vol] 3.6 mmol/L 3.5-5.1 [facility] RBC Auto (Bld) [#/Vol]Ordere d By: Gaetano Tilley on 10-08-2024 RBC (Bld) [#/Vol] 4.21 10*6/uL 4.2-5.4 [facility] Serum anion gap measurementO rdered By: Gaetano Tilley on 10-08-2024 Anion gap [Moles/Vol] 8 mmol/L 5-15 [facility] Serum globulin measurementOr dered By: Gaetano Tilley on 10-08-2024 Globulin (S) [Mass/Vol] 3.0 g/dL 2.2-4.2 [facility] Serum or plasma alanine parkinson otransferase (ALT) measurementOrdered By: Gaetano Tilley on 10-08-2024 ALT [Catalytic activity/Vol] 20 U/L 13-56 [facility] Serum or plasma albumin lamine urement (mass/volume)Ordered By: Gaetano Tilley on 10-08-2024 Albumin [Mass/Vol] 4.0 g/dL 3.2-5.0 [facility] Serum or plasma alkaline heike sphatase measurementOrdered By: Gaetano Tilley on 10-08-2024 ALP [Catalytic activity/Vol] 59 U/L 45-117 [facility] Serum or plasma calcium lamine urement (mass/volume)Ordered By: Gaetano Tilley on 10-08-2024 Calcium [Mass/Vol] 9.4 mg/dL 8.5-10.1 [facility] Serum or plasma cholesterol measurement (mass/volume)Ordered By: Gaetano Tilley on 10-08-2024 Cholesterol [Mass/Vol] 341 mg/dL High <200 [facility] Comment on above: <200 mg/dL Desirable 200-240 mg/dL Borderline >240 mg/dL High Risk Serum or plasma creatinine m easurement (mass/volume)Ordered By: Gaetano Tilley on 10-08-2024 Creatinine [Mass/Vol] 0.74 mg/dL 0.55-1.02 [facility] Comment on above: The validity of the calculated GFR & GFRAA in patients over 70 years has not been determined. Clinical correlation is essential. Serum or plasma urea nitroge n measurement (mass/volume)Ordered By: Gaetano Tilley on 10-08-2024 Urea nitrogen [Mass/Vol] 12 mg/dL 7-18 [facility] Sodium levelOrdered By: Gaetano Tilley on 11-11-2024 Sodium [Moles/Vol] 141 mmol/L 136-145 [facility] T4 Free Directon 10-08-2024 T4 FREE DIRECT 0.95 ng/dL Normal 0.76-1.46 [facility] Comment on above: Order Comment: DR. Helga RADFORD GETS EVERYTHINGDR. MATUTE GETS CBCD CMPOrder Date: 06/15/24Order Info: [id number] - CMPOrder Date: 03/08/24Order Info: [id number] - LIPIDOrder Info: [id number] - TSHOrder Info: [id number] - T4F Performed By: #### L 506.0400, L501.9520 ####[facility] [address] [facility] [place], [place], [id number] TSH QnOrdered By: Gaetano grace on 10-08-2024 Thyroid Stimulating Hormone (TSH) 8.110 uIU/mL High 0.358-3.740 [facility] Thyroid Stim Hormone (TSH)on 10-08-2024 TSH 8.110 uIU/mL High 0.358-3.740 [facility] Comment on above: Order Comment: DR. Helga RADFORD GETS EVERYTHING DR. MATUTE GETS CBCD CMP Order Date: 06/15/24 Order Info: [id number] - CMP Order Date: 03/08/24 Order Info: - LIPID Order Info: [id number] - TSH Order Info: [id number] - T4F Performed By: #### L 506.0400, L501.9520 #### [facility] [address] [facility] [place], [place], [id number] Total proteinOrdered By: Venkat Tilley on 10-08-2024 Protein [Mass/Vol] 7.0 g/dL 6.4-8.2 [facility] Triglycerides measurementOrd ered By: Gaetano Tilley on 10-08-2024 Triglyceride [Mass/Vol] 184 mg/dL <199 [facility] Comment on above: The drugs N-Acetylcy steine and Metamizole may falsely depress this assay.Serum Triglycerides Reference Interval Normal <150 mg/dL Borderline high 150 - 199 mg/dL High 200 - 499 mg/dL Very High > or = 500 mg/dL Very low density lipoprotein (VLDL) cholesterol measurementOrdered By: Gaetano Tilley on 10-08-2024 VLDL Cholesterol 37 mg/dL 5-40 [facility] Vitamin D,25 Hydroxyon 10-08 Vitamin D 25-OH 31.8 ng/mL Normal [facility] Comment on above: Order Comment: Order Date: 10/24/24 Order Info: [id number] - CBCD Result Comment: Libby min D 25(OH) Status Range Deficiency <20 ng/mL (50nmol/L) Insufficiency 20 - 30 ng/mL (50 - 75 nmol/L) Sufficiency 30 - 100 ng/mL (75 - 250 nmol/L) Toxicity >100 ng/mL (>250 nmol/L) Performed By: #### L 506.0400, L500.4100, L501.9520, L506.1000, L500.4050, L100.0100 #### [facility] [address] [place], [address] White blood cell (WBC) count Ordered By: Gaetano Tilley on 10-08-2024 WBC (Bld) [#/Vol] 4.9 10*3/uL 4.4-11.0 [facility] CBC W/Diff, Automatedon 06-28 Absolute Lymph 1.92 X10 3/uL Normal 0.83-4.51 [facility] Comment on above: Performed By: #### L 506.0400, L500.4100, L501.9520, L506.1000, L500.4050, L100.0100 #### [facility] [address] [place], [address] Absolute Neut 2.6 X10 3/uL Normal 2.0-7.7 [facility] Comment on above: Performed By: #### L 506.0400, L500.4100, L501.9520, L506.1000, L500.4050, L100.0100 #### [facility] [address] [place], [address] Basophils/100 WBC (Bld) 0.8 % Normal 0-1 [facility] Comment on above: Performed By: #### L 506.0400, L500.4100, L501.9520, L506.1000, L500.4050, L100.0100 #### [facility] [address] [place], [address] Eosinophils/100 WBC (Bld) 1.4 % Normal 0-5 [facility] Comment on above: Performed By: #### L 506.0400, L500.4100, L501.9520, L506.1000, L500.4050, L100.0100 #### [facility] [address] [place], [address] Erythrocyte distribution width (RBC) [Ratio] 12.7 % Normal 11.6-14.6 [facility] Comment on above: Performed By: #### L 506.0400, L500.4100, L501.9520, L506.1000, L500.4050, L100.0100 #### [facility] [address] [place], [address] Hematocrit (Bld) [Volume fraction] 41.2 % Normal 37-47 [facility] Comment on above: Performed By: #### L 506.0400, L500.4100, L501.9520, L506.1000, L500.4050, L100.0100 #### [facility] [address] [place], [address] Hemoglobin (Bld) [Mass/Vol] 13.3 g/dL Normal 12.0-15.0 [facility] Comment on above: Performed By: #### L 506.0400, L500.4100, L501.9520, L506.1000, L500.4050, L100.0100 #### [facility] [address] [place], [address] IG% 0.200 Normal 0.0-0.9 [facility] Comment on above: Result Comment: IG% - Immature Granulocytes (promyelocytes, myelocytes and metamyelocytes) > 1% indicates that a LEFT SHIFT is Present. Performed By: #### L 506.0400, L500.4100, L501.9520, L506.1000, L500.4050, L100.0100 #### [facility] [address] [place], [address] Lymphocytes/100 WBC (Bld) 38.4 % Normal 19-41 [facility] Comment on above: Performed By: #### L 506.0400, L500.4100, L501.9520, L506.1000, L500.4050, L100.0100 #### [facility] [address] [place], [address] MCH (RBC) [Entitic mass] 32.2 pg High 27.0-32.0 [facility] Comment on above: Performed By: #### L 506.0400, L500.4100, L501.9520, L506.1000, L500.4050, L100.0100 #### [facility] [address] [place], [address] MCHC (RBC) [Mass/Vol] 32.3 g/dL Normal 32-36 [facility] Comment on above: Performed By: #### L 506.0400, L500.4100, L501.9520, L506.1000, L500.4050, L100.0100 #### [facility] [address] [place], [address] MCV (RBC) [Entitic vol] 99.8 fL High 81-99 [facility] Comment on above: Performed By: #### L 506.0400, L500.4100, L501.9520, L506.1000, L500.4050, L100.0100 #### [facility] [address] [place], [address] Monocytes/100 WBC (Bld) 7.4 % Normal 0-10 [facility] Comment on above: Performed By: #### L 506.0400, L500.4100, L501.9520, L506.1000, L500.4050, L100.0100 #### [facility] [address] [place], [address] Neutrophils/100 WBC (Bld) 51.8 % Normal 47-70 [facility] Comment on above: Performed By: #### L 506.0400, L500.4100, L501.9520, L506.1000, L500.4050, L100.0100 #### [facility] [address] [place], [address] Nucleated RBC (Bld) [#/Vol] 0 10*3/uL Normal 0-5 [facility] Comment on above: Performed By: #### L 506.0400, L500.4100, L501.9520, L506.1000, L500.4050, L100.0100 #### [facility] [address] [place], [address] Platelet mean volume (Bld) [Entitic vol] 10.3 fL Normal 6.2-12.0 [facility] Comment on above: Performed By: #### L 506.0400, L500.4100, L501.9520, L506.1000, L500.4050, L100.0100 #### [facility] [address] [place], [address] Platelets (Bld) [#/Vol] 218 10*3/uL Normal 150-450 [facility] Comment on above: Performed By: #### L 506.0400, L500.4100, L501.9520, L506.1000, L500.4050, L100.0100 #### [facility] [address] [place], [address] RBC (Bld) [#/Vol] 4.13 10*6/uL Low 4.2-5.4 [facility] Comment on above: Performed By: #### L 506.0400, L500.4100, L501.9520, L506.1000, L500.4050, L100.0100 #### [facility] [address] [place], [address] RDW SD 46.9 fl High 35.1-43.9 [facility] Comment on above: Performed By: #### L 506.0400, L500.4100, L501.9520, L506.1000, L500.4050, L100.0100 #### [facility] [address] [place], [address] WBC (Bld) [#/Vol] 5.0 10*3/uL Normal 4.4-11.0 [facility] Comment on above: Performed By: #### L 506.0400, L500.4100, L501.9520, L506.1000, L500.4050, L100.0100 #### [facility] [address] [place], [address] Comprehensive Metabolic Prof ilon 07-09-2024 Albumin [Mass/Vol] 3.8 g/dL Normal 3.2-5.0 [facility] Comment on above: Performed By: #### L 506.0400, L500.4100, L501.9520, L506.1000, L500.4050, L100.0100 #### [facility] [address] [place], [address] Albumin/Globulin [Mass ratio] 1.4 {ratio} Normal 0.9-2.4 [facility] Comment on above: Performed By: #### L 506.0400, L500.4100, L501.9520, L506.1000, L500.4050, L100.0100 #### [facility] [address] [place], [address] ALK P 49 U/L Normal 45-117 [facility] Comment on above: Performed By: #### L 506.0400, L500.4100, L501.9520, L506.1000, L500.4050, L100.0100 #### [facility] [address] [place], [address] ALT [Catalytic activity/Vol] 25 U/L Normal 13-56 [facility] Comment on above: Performed By: #### L 506.0400, L500.4100, L501.9520, L506.1000, L500.4050, L100.0100 #### [facility] [address] [place], [address] AST [Catalytic activity/Vol] 25 U/L Normal 15-37 [facility] Comment on above: Performed By: #### L 506.0400, L500.4100, L501.9520, L506.1000, L500.4050, L100.0100 #### [facility] [address] [place], [address] Bilirubin [Mass/Vol] 0.40 mg/dL Normal 0.20-1.00 [facility] Comment on above: Result Comment: For patients on eltrombopag therapy, use of Dimension [place] TBIL is not recommended. Performed By: #### L 506.0400, L500.4100, L501.9520, L506.1000, L500.4050, L100.0100 #### [facility] [address] [place], [address] BUN/CRE 14.7 RATIO Normal 10-20 [facility] Comment on above: Performed By: #### L 506.0400, L500.4100, L501.9520, L506.1000, L500.4050, L100.0100 #### [facility] [address] [place], [address] CA,Total 9.3 mg/dL Normal 8.5-10.1 [facility] Comment on above: Performed By: #### L 506.0400, L500.4100, L501.9520, L506.1000, L500.4050, L100.0100 #### [facility] [address] [place], [address] Chloride [Moles/Vol] 106 mmol/L Normal 98-107 [facility] Comment on above: Performed By: #### L 506.0400, L500.4100, L501.9520, L506.1000, L500.4050, L100.0100 #### [facility] [address] [place], [address] CO2 [Moles/Vol] 28.0 mmol/L Normal 21.0-32.0 [facility] Comment on above: Performed By: #### L 506.0400, L500.4100, L501.9520, L506.1000, L500.4050, L100.0100 #### [facility] [address] [place], [address] Creatinine [Mass/Vol] 0.75 mg/dL Normal 0.55-1.02 [facility] Comment on above: Result Comment: The validity of the calculated GFR GFRAA in patients over 70 years has not been determined. Clinical correlation is essential. Performed By: #### L 506.0400, L500.4100, L501.9520, L506.1000, L500.4050, L100.0100 #### [facility] [address] [place], [address] EST GFR - AA 100 mL/min Normal >60 [facility] Comment on above: Result Comment: Afri can Uzbek GFR Calc Performed By: #### L 506.0400, L500.4100, L501.9520, L506.1000, L500.4050, L100.0100 #### [facility] [address] [place], [address] GAP 5 Normal 5-15 [facility] Comment on above: Performed By: #### L 506.0400, L500.4100, L501.9520, L506.1000, L500.4050, L100.0100 #### [facility] [address] [place], [address] GFR/1.73 sq M.predicted among non-blacks MDRD (S/P/Bld) [Vol rate/Area] 82 mL/min/{1.73_m2} Normal >60 [facility] Comment on above: Result Comment: Non- GFR Calc Performed By: #### L 506.0400, L500.4100, L501.9520, L506.1000, L500.4050, L100.0100 #### [facility] [address] [place], [address] Globulin (S) [Mass/Vol] 2.8 g/dL Normal 2.2-4.2 [facility] Comment on above: Performed By: #### L 506.0400, L500.4100, L501.9520, L506.1000, L500.4050, L100.0100 #### [facility] [address] [place], [address] Glucose [Mass/Vol] 85 mg/dL Normal 74-106 [facility] Comment on above: Performed By: #### L 506.0400, L500.4100, L501.9520, L506.1000, L500.4050, L100.0100 #### [facility] [address] [place], [address] Potassium [Moles/Vol] 3.6 mmol/L Normal 3.5-5.1 [facility] Comment on above: Performed By: #### L 506.0400, L500.4100, L501.9520, L506.1000, L500.4050, L100.0100 #### [facility] [address] [place], [address] Sodium [Moles/Vol] 139 mmol/L Normal 136-145 [facility] Comment on above: Performed By: #### L 506.0400, L500.4100, L501.9520, L506.1000, L500.4050, L100.0100 #### [facility] [address] [place], [address] T PROT 6.6 g/dL Normal 6.4-8.2 [facility] Comment on above: Performed By: #### L 506.0400, L500.4100, L501.9520, L506.1000, L500.4050, L100.0100 #### [facility] [address] [place], [address] Urea nitrogen [Mass/Vol] 11 mg/dL Normal 7-18 [facility] Comment on above: Performed By: #### L 506.0400, L500.4100, L501.9520, L506.1000, L500.4050, L100.0100 #### [facility] [address] [place], [address] SCRN MAMM (CAD)W/KURT BILATo n 06-29-2024 SCRN MAMM (CAD)W/KURT BILAT [facility] Imaging Services [address] [place] [address] SCRN MAMM (CAD)W/KURT BILAT MR#: [id number] Acct: [id number] Name: AUGUSTUS TARIQ Rep #: [id number] : 1955 F 68 From: Law quinn MD PCP: Dr. Gaetano Tilley MD Status: REG CLI Study: SCRN MAMM (CAD)W/KURT BILAT Date of Exam: 01/21 Exam# [id number] Ordering Dr: Gaetano Tilley MD [id number] MAMMOGRAPHY - BILATERAL SCREENING REASON FOR EXAM: Female, 68 years old. Routine annual screening examination. PERTINENT HISTORY: Sisters with breast cancer. Aunt with breast cancer. Remote left excisional breast biopsy. TECHNIQUE: Digital bilateral breast kurt (3D mammographic acquisition) in the CC and MLO projections. 2-D mediolateral oblique (MLO) and craniocaudad (CC) views of both breasts were obtained. CAD: Full Field Digital Mammography with Computer Added Detection was performed. COMPARISON: Comparison is made with prior study dated June 20, 2023. FINDINGS: Breast Composition: There are scattered areas of fibroglandular density. There are no dominant masses or suspicious calcifications. No other significant abnormalities are identified. There has been no significant change since the prior study. BI/SCRN MAMM (CAD)W/KURT BILAT IMPRESSION: Stable bilateral screening mammogram. Yearly follow-up mammogram recommended. (A) ASSESSMENT CATEGORY: BIRADS Category 1: Negative. A letter regarding these results will be sent to the patient by the facility within 30 days. Approximately 10% of breast cancers are not detected by mammography. A normal mammogram should not delay biopsy of a clinically suspicious abnormality. [id number] Electronically Signed: Law Gaxiola MD at 10:45 EDT , CC: Dr. Gaetano Tilley MD [employer] Supervisor: Signed Normal [facility] CBC W/Diff, Automatedon - Absolute Lymph 1.51 X10 3/uL Normal 0.83-4.51 [facility] Comment on above: Order Comment: Order Date: 06/15/24Order Info: [id number] - CBCD Performed By: #### L 500.4050, L501.5200, L500.4100, L100.0100, L501.9520, L506.0400, L506.1000 ####[facility] [address] [place], [address] Absolute Neut 2.6 X10 3/uL Normal 2.0-7.7 [facility] Comment on above: Order Comment: Order Date: 06/15/24Order Info: [id number] - CBCD Performed By: #### L 500.4050, L501.5200, L500.4100, L100.0100, L501.9520, L506.0400, L506.1000 ####[facility] [address] [place], [address] Basophils/100 WBC (Bld) 0.7 % Normal 0-1 [facility] Comment on above: Order Comment: Order Date: 06/15/24Order Info: [id number] - CBCD Performed By: #### L 500.4050, L501.5200, L500.4100, L100.0100, L501.9520, L506.0400, L506.1000 ####[facility] [address] [place], [address] Eosinophils/100 WBC (Bld) 1.3 % Normal 0-5 [facility] Comment on above: Order Comment: Order Date: 06/15/24Order Info: 018- - CBCD Performed By: #### L 500.4050, L501.5200, L500.4100, L100.0100, L501.9520, L506.0400, L506.1000 ####[facility] [address] [place], [address] Erythrocyte distribution width (RBC) [Ratio] 13.4 % Normal 11.6-14.6 [facility] Comment on above: Order Comment: Order Date: 06/15/24Order Info: [id number] - CBCD Performed By: #### L 500.4050, L501.5200, L500.4100, L100.0100, L501.9520, L506.0400, L506.1000 ####[facility] [address] [place], [address] Hematocrit (Bld) [Volume fraction] 42.2 % Normal 37-47 [facility] Comment on above: Order Comment: Order Date: 06/15/24Order Info: [id number] - CBCD Performed By: #### L 500.4050, L501.5200, L500.4100, L100.0100, L501.9520, L506.0400, L506.1000 ####[facility] [address] [facility] [place], [place], [address] Hemoglobin (Bld) [Mass/Vol] 13.7 g/dL Normal 12.0-15.0 [facility] Comment on above: Order Comment: Order Date: 06/15/24Order Info: 0184-1 - CBCD Performed By: #### L 500.4050, L501.5200, L500.4100, L100.0100, L501.9520, L506.0400, L506.1000 ####[facility] [address] [place], [address] IG% 0.200 Normal 0.0-0.9 [facility] Comment on above: Order Comment: Order Date: 06/15/24Order Info: 0184-1 - CBCD Result Comment: IG% - Immature Granulocytes (promyelocytes, myelocytes and metamyelocytes) > 1% indicates that a LEFT SHIFT is Present. Performed By: #### L 500.4050, L501.5200, L500.4100, L100.0100, L501.9520, L506.0400, L506.1000 ####[facility] [address] [place], [address] Lymphocytes/100 WBC (Bld) 33.3 % Normal 19-41 [facility] Comment on above: Order Comment: Order Date: 06/15/24Order Info: 018-1 - CBCD Performed By: #### L 500.4050, L501.5200, L500.4100, L100.0100, L501.9520, L506.0400, L506.1000 ####[facility] [address] [place], [address] MCH (RBC) [Entitic mass] 32.9 pg High 27.0-32.0 [facility] Comment on above: Order Comment: Order Date: 06/15/24Order Info: 018- - CBCD Performed By: #### L 500.4050, L501.5200, L500.4100, L100.0100, L501.9520, L506.0400, L506.1000 ####[facility] [address] [place], [address] MCHC (RBC) [Mass/Vol] 32.5 g/dL Normal 32-36 [facility] Comment on above: Order Comment: Order Date: 06/15/24Order Info: 018-1 - CBCD Performed By: #### L 500.4050, L501.5200, L500.4100, L100.0100, L501.9520, L506.0400, L506.1000 ####[facility] [address] [place], [address] MCV (RBC) [Entitic vol] 101.4 fL High 81-99 [facility] Comment on above: Order Comment: Order Date: 06/15/24Order Info: 018- - CBCD Performed By: #### L 500.4050, L501.5200, L500.4100, L100.0100, L501.9520, L506.0400, L506.1000 ####[facility] [address] [place], [address] Monocytes/100 WBC (Bld) 8.4 % Normal 0-10 [facility] Comment on above: Order Comment: Order Date: 06/15/24Order Info: 0184-1 - CBCD Performed By: #### L 500.4050, L501.5200, L500.4100, L100.0100, L501.9520, L506.0400, L506.1000 ####[facility] [address] [place], [address] Neutrophils/100 WBC (Bld) 56.1 % Normal 47-70 [facility] Comment on above: Order Comment: Order Date: 06/15/24Order Info: 0184-1 - CBCD Performed By: #### L 500.4050, L501.5200, L500.4100, L100.0100, L501.9520, L506.0400, L506.1000 ####[facility] [address] [facility] [place], [address] Nucleated RBC (Bld) [#/Vol] 0 10*3/uL Normal 0-5 [facility] Comment on above: Order Comment: Order Date: 06/15/24Order Info: 0184-1 - CBCD Performed By: #### L 500.4050, L501.5200, L500.4100, L100.0100, L501.9520, L506.0400, L506.1000 ####[facility] [address] [facility] [place], [address] Platelet mean volume (Bld) [Entitic vol] 10.3 fL Normal 6.2-12.0 [facility] Comment on above: Order Comment: Order Date: 06/15/24Order Info: 0184-1 - CBCD Performed By: #### L 500.4050, L501.5200, L500.4100, L100.0100, L501.9520, L506.0400, L506.1000 ####[facility] [address] [place], [address] Platelets (Bld) [#/Vol] 247 10*3/uL Normal 150-450 [facility] Comment on above: Order Comment: Order Date: 06/15/24Order Info: 0184-1 - CBCD Performed By: #### L 500.4050, L501.5200, L500.4100, L100.0100, L501.9520, L506.0400, L506.1000 ####[facility] [address] [place], [address] RBC (Bld) [#/Vol] 4.16 10*6/uL Low 4.2-5.4 [facility] Comment on above: Order Comment: Order Date: 06/15/24Order Info: 0184-1 - CBCD Performed By: #### L 500.4050, L501.5200, L500.4100, L100.0100, L501.9520, L506.0400, L506.1000 ####[facility] [address] [place], [address] RDW SD 50.3 fl High 35.1-43.9 [facility] Comment on above: Order Comment: Order Date: 06/15/24Order Info: [id number] - CBCD Performed By: #### L 500.4050, L501.5200, L500.4100, L100.0100, L501.9520, L506.0400, L506.1000 ####[facility] [address] [place], [address] WBC (Bld) [#/Vol] 4.5 10*3/uL Normal 4.4-11.0 [facility] Comment on above: Order Comment: Order Date: 06/15/24Order Info: [id number] - CBCD Performed By: #### L 500.4050, L501.5200, L500.4100, L100.0100, L501.9520, L506.0400, L506.1000 ####[facility] [address] [place], [place], [address] Comprehensive Metabolic Prof ilon 06-15-2024 Albumin [Mass/Vol] 4.1 g/dL Normal 3.2-5.0 [facility] Comment on above: Order Comment: Order Date: 06/15/24Order Info: 86-1 - CMPOrder Info: [id number] - LIPIDOrder Info: [id number] - MGOrder Info: [id number] - TSHOrder Info: 302-7 - T4F Performed By: #### L 500.4050, L501.5200, L500.4100, L100.0100, L501.9520, L506.0400, L506.1000 ####[facility] [address] [place], [address] Albumin/Globulin [Mass ratio] 1.5 {ratio} Normal 0.9-2.4 [facility] Comment on above: Order Comment: Order Date: 06/15/24Order Info: 86-1 - CMPOrder Info: [id number] - LIPIDOrder Info: [id number] - MGOrder Info: 6-3 - TSHOrder Info: [id number] - T4F Performed By: #### L 500.4050, L501.5200, L500.4100, L100.0100, L501.9520, L506.0400, L506.1000 ####[facility] [address] [place], [place], [id number] ALK P 47 U/L Normal 45-117 [facility] Comment on above: Order Comment: Order Date: 06/15/24Order Info: [id number] - CMPOrder Info: [id number] - LIPIDOrder Info: [id number] - MGOrder Info: [id number] - TSHOrder Info: 3024-7 - T4F Performed By: #### L 500.4050, L501.5200, L500.4100, L100.0100, L501.9520, L506.0400, L506.1000 ####[facility] [address] [place], [address] ALT [Catalytic activity/Vol] 24 U/L Normal 13-56 [facility] Comment on above: Order Comment: Order Date: 06/15/24Order Info: [id number] - CMPOrder Info: [id number] - LIPIDOrder Info: [id number] - MGOrder Info: [id number] - TSHOrder Info: [id number] - T4F Performed By: #### L 500.4050, L501.5200, L500.4100, L100.0100, L501.9520, L506.0400, L506.1000 ####[facility] [address] [place], [address] AST [Catalytic activity/Vol] 21 U/L Normal 15-37 [facility] Comment on above: Order Comment: Order Date: 06/15/24Order Info: [id number] - CMPOrder Info: [id number] - LIPIDOrder Info: [id number] - MGOrder Info: [id number] - TSHOrder Info: [id number] - T4F Performed By: #### L 500.4050, L501.5200, L500.4100, L100.0100, L501.9520, L506.0400, L506.1000 ####[facility] [address] [place], [address] Bilirubin [Mass/Vol] 0.50 mg/dL Normal 0.20-1.00 [facility] Comment on above: Order Comment: Order Date: 06/15/24Order Info: [id number] - CMPOrder Info: [id number] - LIPIDOrder Info: [id number] - MGOrder Info: [id number] - TSHOrder Info: 3024-7 - T4F Result Comment: For patients on eltrombopag therapy, use of Dimension [place] TBIL is not recommended. Performed By: #### L 500.4050, L501.5200, L500.4100, L100.0100, L501.9520, L506.0400, L506.1000 ####[facility] [address] [place], [address] BUN/CRE 26.1 RATIO High 10-20 [facility] Comment on above: Order Comment: Order Date: 06/15/24Order Info: [id number] - CMPOrder Info: [id number] - LIPIDOrder Info: [id number] - MGOrder Info: [id number] - TSHOrder Info: 3024-7 - T4F Performed By: #### L 500.4050, L501.5200, L500.4100, L100.0100, L501.9520, L506.0400, L506.1000 ####[facility] [address] [place], [place], [address]([phone] CA,Total 9.9 mg/dL Normal 8.5-10.1 [facility] Comment on above: Order Comment: Order Date: 06/15/24Order Info: 86-1 - CMPOrder Info: [id number] - LIPIDOrder Info: [id number] - MGOrder Info: [id number] - TSHOrder Info: [id number] - T4F Performed By: #### L 500.4050, L501.5200, L500.4100, L100.0100, L501.9520, L506.0400, L506.1000 ####[facility] [address] [place], [address] Chloride [Moles/Vol] 107 mmol/L Normal 98-107 [facility] Comment on above: Order Comment: Order Date: 06/15/24Order Info: [id number] - CMPOrder Info: [id number] - LIPIDOrder Info: [id number] - MGOrder Info: [id number] - TSHOrder Info: 3024-7 - T4F Performed By: #### L 500.4050, L501.5200, L500.4100, L100.0100, L501.9520, L506.0400, L506.1000 ####[facility] [address] [place], [address] CO2 [Moles/Vol] 26.0 mmol/L Normal 21.0-32.0 [facility] Comment on above: Order Comment: Order Date: 06/15/24Order Info: [id number] - CMPOrder Info: [id number] - LIPIDOrder Info: [id number] - MGOrder Info: [id number] - TSHOrder Info: 3024-7 - T4F Performed By: #### L 500.4050, L501.5200, L500.4100, L100.0100, L501.9520, L506.0400, L506.1000 ####[facility] [address] [place], [address] Creatinine [Mass/Vol] 0.69 mg/dL Normal 0.55-1.02 [facility] Comment on above: Order Comment: Order Date: 06/15/24Order Info: 86-1 - CMPOrder Info: [id number] - LIPIDOrder Info: [id number] - MGOrder Info: [id number] - TSHOrder Info: 3024-7 - T4F Result Comment: The validity of the calculated GFR GFRAA in patients over 70 years has not been determined. Clinical correlation is essential. Performed By: #### L 500.4050, L501.5200, L500.4100, L100.0100, L501.9520, L506.0400, L506.1000 ####[facility] [address] [place], [address] EST GFR - AA 109 mL/min Normal >60 [facility] Comment on above: Order Comment: Order Date: 06/15/24Order Info: [id number] - CMPOrder Info: [id number] - LIPIDOrder Info: [id number] - MGOrder Info: [id number] - TSHOrder Info: 3024-7 - T4F Result Comment: Afri can Uzbek GFR Calc Performed By: #### L 500.4050, L501.5200, L500.4100, L100.0100, L501.9520, L506.0400, L506.1000 ####[facility] [address] [place], [address] GAP 7 Normal 5-15 [facility] Comment on above: Order Comment: Order Date: 06/15/24Order Info: 86-1 - CMPOrder Info: [id number] - LIPIDOrder Info: [id number] - MGOrder Info: 3 - TSHOrder Info: 7 - T4F Performed By: #### L 500.4050, L501.5200, L500.4100, L100.0100, L501.9520, L506.0400, L506.1000 ####[facility] [address] [place], [address] GFR/1.73 sq M.predicted among non-blacks MDRD (S/P/Bld) [Vol rate/Area] 90 mL/min/{1.73_m2} Normal >60 [facility] Comment on above: Order Comment: Order Date: 06/15/24Order Info: 785- - CMPOrder Info: - LIPIDOrder Info: [id number] - MGOrder Info: 3 - TSHOrder Info: [id number] - T4F Result Comment: Non- GFR Calc Performed By: #### L 500.4050, L501.5200, L500.4100, L100.0100, L501.9520, L506.0400, L506.1000 ####[facility] [address] [place], [address] Globulin (S) [Mass/Vol] 2.7 g/dL Normal 2.2-4.2 [facility] Comment on above: Order Comment: Order Date: 06/15/24Order Info: 86-1 - CMPOrder Info: [id number] - LIPIDOrder Info: [id number] - MGOrder Info: [id number] - TSHOrder Info: [id number] - T4F Performed By: #### L 500.4050, L501.5200, L500.4100, L100.0100, L501.9520, L506.0400, L506.1000 ####[facility] [address] [place], [address] Glucose [Mass/Vol] 93 mg/dL Normal 74-106 [facility] Comment on above: Order Comment: Order Date: 06/15/24Order Info: 86-1 - CMPOrder Info: [id number] - LIPIDOrder Info: [id number] - MGOrder Info: [id number] - TSHOrder Info: 302-7 - T4F Performed By: #### L 500.4050, L501.5200, L500.4100, L100.0100, L501.9520, L506.0400, L506.1000 ####[facility] [address] [place], [address] Potassium [Moles/Vol] 3.8 mmol/L Normal 3.5-5.1 [facility] Comment on above: Order Comment: Order Date: 06/15/24Order Info: 785- - CMPOrder Info: [id number] - LIPIDOrder Info: [id number] - MGOrder Info: 3 - TSHOrder Info: [id number] - T4F Performed By: #### L 500.4050, L501.5200, L500.4100, L100.0100, L501.9520, L506.0400, L506.1000 ####[facility] [address] [place], [address] Sodium [Moles/Vol] 140 mmol/L Normal 136-145 [facility] Comment on above: Order Comment: Order Date: 06/15/24Order Info: 86-1 - CMPOrder Info: [id number] - LIPIDOrder Info: [id number] - MGOrder Info: [id number] - TSHOrder Info: [id number] - T4F Performed By: #### L 500.4050, L501.5200, L500.4100, L100.0100, L501.9520, L506.0400, L506.1000 ####[facility] [address] [place], [place], [id number] T PROT 6.8 g/dL Normal 6.4-8.2 [facility] Comment on above: Order Comment: Order Date: 06/15/24Order Info: [id number] - CMPOrder Info: [id number] - LIPIDOrder Info: [id number] - MGOrder Info: [id number] - TSHOrder Info: [id number] - T4F Performed By: #### L 500.4050, L501.5200, L500.4100, L100.0100, L501.9520, L506.0400, L506.1000 ####[facility] [address] [place], [place], [id number] Urea nitrogen [Mass/Vol] 18 mg/dL Normal 7-18 [facility] Comment on above: Order Comment: Order Date: 06/15/24Order Info: 86-1 - CMPOrder Info: [id number] - LIPIDOrder Info: [id number] - MGOrder Info: [id number] - TSHOrder Info: [id number] - T4F Performed By: #### L 500.4050, L501.5200, L500.4100, L100.0100, L501.9520, L506.0400, L506.1000 ####[facility] [address] [place], [place], [id number] Lipid Profileon 06-15-2024 Cholesterol [Mass/Vol] 318 mg/dL High 200 [facility] Comment on above: Order Comment: Order Date: 06/15/24Order Info: [id number] - CMPOrder Info: [id number] - LIPIDOrder Info: [id number] - MGOrder Info: [id number] - TSHOrder Info: [id number] - T4F Result Comment: <200 mg/dL Desirable 200-240 mg/dL Borderline >240 mg/dL High Risk Performed By: #### L 500.4050, L501.5200, L500.4100, L100.0100, L501.9520, L506.0400, L506.1000 ####[facility] [address] [place], [address] Cholesterol in HDL [Mass/Vol] 73 mg/dL Normal [facility] Comment on above: Order Comment: Order Date: 06/15/24Order Info: [id number]- - CMPOrder Info: [id number] - LIPIDOrder Info: [id number] - MGOrder Info: 3 - TSHOrder Info: 7 - T4F Result Comment: The drugs N-Acetylcysteine and Metamizole may falsely depress this assay. Reference Range HDL <40 mg/dL Low HDL Cholesterol HDL >or= 60 mg/dL High HDL Cholesterol Performed By: #### L 500.4050, L501.5200, L500.4100, L100.0100, L501.9520, L506.0400, L506.1000 ####[facility] [address] [place], [address] Cholesterol in LDL [Mass/Vol] 214 mg/dL High 0-130 [facility] Comment on above: Order Comment: Order Date: 06/15/24Order Info: [id number]- - CMPOrder Info: [id number] - LIPIDOrder Info: - MGOrder Info: 3 - TSHOrder Info: 7 - T4F Performed By: #### L 500.4050, L501.5200, L500.4100, L100.0100, L501.9520, L506.0400, L506.1000 ####[facility] [address] [place], [address] Cholesterol in VLDL [Mass/Vol] 31 mg/dL Normal 5-40 [facility] Comment on above: Order Comment: Order Date: 06/15/24Order Info: 785- - CMPOrder Info: [id number] - LIPIDOrder Info: - MGOrder Info: [id number] - TSHOrder Info: [id number] - T4F Performed By: #### L 500.4050, L501.5200, L500.4100, L100.0100, L501.9520, L506.0400, L506.1000 ####[facility] [address] [place], [address] Triglyceride [Mass/Vol] 156 mg/dL Normal [facility] Comment on above: Order Comment: Order Date: 06/15/24Order Info: 785- - CMPOrder Info: [id number] - LIPIDOrder Info: [id number] - MGOrder Info: [id number] - TSHOrder Info: [id number] - T4F Result Comment: The drugs N-Acetylcysteine and Metamizole may falsely depress this assay. Serum Triglycerides Reference Interval Normal <150 mg/dL Borderline high 150 - 199 mg/dL High 200 - 499 mg/dL Very High > or = 500 mg/dL Performed By: #### L 500.4050, L501.5200, L500.4100, L100.0100, L501.9520, L506.0400, L506.1000 ####[facility] [address] [place], [place], [address](558) Magnesiumon 06-15-2024 Magnesium [Mass/Vol] 2.1 mg/dL Normal 1.6-2.6 [facility] Comment on above: Order Comment: Order Date: 06/15/24Order Info: [id number] - CMPOrder Info: - LIPIDOrder Info: [id number] - MGOrder Info: [id number] - TSHOrder Info: [id number] - T4F Performed By: #### L 500.4050, L501.5200, L500.4100, L100.0100, L501.9520, L506.0400, L506.1000 ####[facility] [address] [place], [address] T4 Free Directon 06-15-2024 T4 FREE DIRECT 0.90 ng/dL Normal 0.76-1.46 [facility] Comment on above: Order Comment: Order Date: 06/15/24Order Info: [id number]- - CMPOrder Info: [id number] - LIPIDOrder Info: [id number] - MGOrder Info: 3 - TSHOrder Info: [id number] - T4F Performed By: #### L 500.4050, L501.5200, L500.4100, L100.0100, L501.9520, L506.0400, L506.1000 ####[facility] [address] [place], [address] Thyroid Stim Hormone (TSH)on 06-15-2024 TSH 2.48 uIU/mL Normal 0.358-3.74 [facility] Comment on above: Order Comment: Order Date: 06/15/24Order Info: [id number] - CMPOrder Info: [id number] - LIPIDOrder Info: [id number] - MGOrder Info: 3 - TSHOrder Info: 7 - T4F Performed By: #### L 500.4050, L501.5200, L500.4100, L100.0100, L501.9520, L506.0400, L506.1000 ####[facility] [address] [place], [address] Urinalysis, Completeon 06-15 BACTERIA 0 SEEN Normal None Seen [facility] Comment on above: Order Comment: CLEAN CATCH Performed By: #### L 400.0001 #### [facility] [address] [place], [address] EPI,SQUAMOUS 0 SEEN Normal 5-10 [facility] Comment on above: Order Comment: CLEAN CATCH Performed By: #### L 400.0001 #### [facility] [address] [place], [address] Mucus Ql (Urine sed) 0 SEEN Normal [facility] Comment on above: Order Comment: CLEAN CATCH Performed By: #### L 400.0001 #### [facility] [address] [place], [address] RBC 0 SEEN Normal 0-5 [facility] Comment on above: Order Comment: CLEAN CATCH Performed By: #### L 400.0001 #### [facility] [address] [place], [address] WBC 0 SEEN Normal 0-5 [facility] Comment on above: Order Comment: CLEAN CATCH Performed By: #### L 400.0001 #### [facility] [address] [place], [address] Vitamin D,25 Hydroxyon 06-15 Vitamin D 25-OH 30.4 ng/mL Normal [facility] Comment on above: Order Comment: Order Date: 06/15/24Order Info: [id number] - VITD25 Result Comment: Libby min D 25(OH) Status Range Deficiency <20 ng/mL (50nmol/L) Insufficiency 20 - 30 ng/mL (50 - 75 nmol/L) Sufficiency 30 - 100 ng/mL (75 - 250 nmol/L) Toxicity >100 ng/mL (>250 nmol/L) Performed By: #### L 500.4050, L501.5200, L500.4100, L100.0100, L501.9520, L506.0400, L506.1000 ####[facility] [address] [place], [address] Laboratory - Chemistry and C hemistry - challengeOrdered By: Gaetano Tilley on 03-08-2024 CK [Catalytic activity/Vol] 50 U/L 26-192 [facility] Ferritin [Mass/Vol] 69 ng/mL 8-252 [facility] Magnesium [Mass/Vol] 2.1 mg/dL 1.6-2.6 [facility] No Panel InformationOrdered By: Gaetano Tilley on 03-08-2024 Thyroglobulin Antibody < 1.0 IU/mL 0.0-0.9 [facility] Comment on above: Thyroglobulin Antibo dy measured by Sohail CoulterMethodologyIt should be noted that the presence of thyroglobulinantibodies may not be pathogenic nor diagnostic, especiallyat very low levels. The assay tower control operator has found thatfour percent of individuals without evidence of thyroiddisease or autoimmunity will have positive TgAb levels upto 4 IU/mL.Performed at: [employer] [id number] Director: Jamie Nixon PhD, Phone: [phone] Serum or plasma thyroperoxid ase antibody assay (units/volume)Ordered By: Gaetano Tilley on 03-08-2024 TPO Ab Qn 32 [IU]/mL 0-34 [facility] Thin prep Papanicolaou smear with manual screeningOrdered By: Gaetano Tilley on 03-08-2024 Thin prep Papanicolaou smear with manual screening 1.02 ng/dL 0.76-1.46 [facility] Absolute lymphocyte countOrd ered By: Gaetano Tilley on 02-24-2024 Lymphocytes Auto (Unsp spec) [#/Vol] 1.87 10*3/uL 0.83-4.51 [facility] Automated lymphocyte count a s percentage of total leukocytesOrdered By: Gaetano Tilley on 02-24-2024 Lymphocytes/100 WBC Auto (Unsp spec) 48.2 % 19-41 [facility] Basophil percentageOrdered B y: Gaetano Tilley on 02-24-2024 Basophils/100 WBC (Bld) 0.8 % 0-1 [facility] Bilirubin [Mass/Vol] 0.50 mg/dL 0.20-1.00 [facility] Comment on above: For patients on eltr ombopag therapy, use of Dimension [place] TBIL is not recommended. Chloride [Moles/Vol] 109 mmol/L 98-107 [facility] Cholesterol [Mass/Vol] 202 mg/dL <200 [facility] Comment on above: <200 mg/dL Desirable 200-240 mg/dL Borderline >240 mg/dL High Risk Eosinophils/100 WBC (Bld) 1.8 % 0-5 [facility] Glucose [Mass/Vol] 92 mg/dL 74-106 [facility] Hemoglobin (Bld) [Mass/Vol] 13.1 g/dL 12.0-15.0 [facility] Monocytes/100 WBC (Bld) 9.0 % 0-10 [facility] Neutrophils (Bld) [#/Vol] 1.6 10*3/uL 2.0-7.7 [facility] Neutrophils/100 WBC (Bld) 39.9 % 47-70 [facility] Potassium [Moles/Vol] 4.0 mmol/L 3.5-5.1 [facility] Protein [Mass/Vol] 6.7 g/dL 6.4-8.2 [facility] Sodium [Moles/Vol] 141 mmol/L 136-145 [facility] Triglyceride [Mass/Vol] 202 mg/dL <199 [facility] Comment on above: The drugs N-Acetylcy steine and Metamizole may falsely depress this assay.Serum Triglycerides Reference Interval Normal <150 mg/dL Borderline high 150 - 199 mg/dL High 200 - 499 mg/dL Very High > or = 500 mg/dL WBC (Bld) [#/Vol] 3.9 10*3/uL 4.4-11.0 [facility] Bilirubin Test strip Ql (U)O rdered By: Gaetano Tilley on 02-24-2024 Bilirubin Ql (U) Negative Negative [facility] Determination of erythrocyte mean corpuscular volume (MCV)Ordered By: Gaetano Tilley on 02-24-2024 MCV (RBC) [Entitic vol] 101.5 fL 81-99 [facility] Erythrocyte distribution wid th ratioOrdered By: Gaetano Tilley on 02-24-2024 Erythrocyte distribution width (RBC) [Ratio] 13.4 % 11.6-14.6 [facility] Erythrocyte distribution wid th standard deviationOrdered By: Gaetano Tilley on 02-24-2024 Erythrocyte distribution width (RBC) [Entitic vol] 50.5 fL 35.1-43.9 [facility] Hematocrit Auto (Bld) [Volum e fraction]Ordered By: Gaetano Tilley on 02-24-2024 Hematocrit (Bld) [Volume fraction] 40.6 % 37-47 [facility] Immature granulocytes/100 WB C Auto (Bld)Ordered By: Gaetano Tilley on 02-24-2024 Immature granulocytes/100 WBC (Bld) 0.300 % 0.0-0.9 [facility] Comment on above: IG% - Immature Granu locytes (promyelocytes, myelocytes and metamyelocytes) > 1% indicates that a LEFT SHIFT is Present. Ketones Test strip Ql (U)Ord ered By: Gaetano Tilley on 02-24-2024 Ketones Ql (U) Negative Negative [facility] Laboratory - Chemistry and C hemistry - challengeOrdered By: Gaetano Tilley on 02-24-2024 Albumin/Globulin [Mass ratio] 1.4 {ratio} 0.9-2.4 [facility] ALP [Catalytic activity/Vol] 51 U/L 45-117 [facility] ALT [Catalytic activity/Vol] 20 U/L 13-56 [facility] Cholesterol in HDL [Mass/Vol] 76 mg/dL >40 [facility] Comment on above: The drugs N-Acetylcy steine and Metamizole may falsely depress this assay. Reference Range HDL <40 mg/dL Low HDL Cholesterol HDL >or= 60 mg/dL High HDL Cholesterol Cholesterol in LDL [Mass/Vol] 86 mg/dL 0-130 [facility] CO2 [Moles/Vol] 26.0 mmol/L 21.0-32.0 [facility] Globulin (S) [Mass/Vol] 2.8 g/dL 2.2-4.2 [facility] Urea nitrogen/Creatinine [Mass ratio] 11.2 mg/mg 10-20 [facility] - Hematology and Cell countsOrdered By: Gaetano Tilley on 02-24-2024 MCH (RBC) [Entitic mass] 32.8 pg 27.0-32.0 [facility] MCHC (RBC) [Mass/Vol] 32.3 g/dL 32-36 [facility] Nucleated RBC/100 WBC (Bld) [Ratio] 0 % 0-5 [facility] Platelet mean volume (Bld) [Entitic vol] 10.9 fL 6.2-12.0 [facility] Platelets (Bld) [#/Vol] 254 10*3/uL 150-450 [facility] Nitrite Test strip Ql (U)Ord ered By: Gaetano Tilley on 02-24-2024 Nitrite Ql (U) Negative Negative [facility] No Panel InformationOrdered By: Gaetano Tilley on 02-24-2024 Estimated GFR (MDRD) Amer 122 mL/min >60 [facility] Comment on above: GFR Calc Estimated GFR (MDRD) Non-Af Amer 101 mL/min >60 [facility] Comment on above: Non- GFR Calc Vitamin D 25-Hydroxy 35.1 ng/mL [facility] Comment on above: Vitamin D 25(OH) Sta tus Range Deficiency <20 ng/mL (50nmol/L) Insufficiency 20 - 30 ng/mL (50 - 75 nmol/L) Sufficiency 30 - 100 ng/mL (75 - 250 nmol/L) Toxicity >100 ng/mL (>250 nmol/L) VLDL Cholesterol 40 mg/dL 5-40 [facility] Protein Test strip Ql (U)Ord ered By: Gaetano Tilley on 02-24-2024 Protein Ql (U) Negative Negative [facility] RBC Auto (Bld) [#/Vol]Ordere d By: Gaetano Tilley on 02-24-2024 RBC (Bld) [#/Vol] 4.00 10*6/uL 4.2-5.4 [facility] Serum or plasma calcium lamine urement (mass/volume)Ordered By: Gaetano Tilley on 02-24-2024 Calcium [Mass/Vol] 9.2 mg/dL 8.5-10.1 [facility] Serum or plasma creatinine m easurement (mass/volume)Ordered By: Gaetano Tilley on 02-24-2024 Creatinine [Mass/Vol] 0.63 mg/dL 0.55-1.02 [facility] Comment on above: The validity of the calculated GFR & GFRAA in patients over 70 years has not been determined. Clinical correlation is essential. Serum or plasma thyroid stim ulating hormone (TSH) measurement (units/volume)Ordered By: Gaetano Tilley on 02-24-2024 TSH Qn 4.65 uIU/mL 0.358-3.74 [facility] Serum or plasma urea nitroge n measurement (mass/volume)Ordered By: Gaetano Tilley on 02-24-2024 Urea nitrogen [Mass/Vol] 7 mg/dL 7-18 [facility] Thin prep Papanicolaou smear with manual screeningOrdered By: Gaetano Tilley on 02-24-2024 Thin prep Papanicolaou smear with manual screening 3.9 g/dL 3.2-5.0 [facility] Thin prep Papanicolaou smear with manual screening 20 U/L 15-37 [facility] Thin prep Papanicolaou smear with manual screening 6 5-15 [facility] Urine blood detectionOrdered By: Gaetano Tilley on 02-24-2024 RBC Ql (U) Negative Negative [facility] Urine clarityOrdered By: Venkat Tilley on 02-24-2024 Clarity (U) Clear Clear [facility] Urine color determinationOrd ered By: Gaetano Tilley on 02-24-2024 Color (U) Yellow Yellow [facility] Urine glucose detectionOrder ed By: Gaetano Tilley on 02-24-2024 Glucose Ql (U) Normal mg/dl Normal [facility] Urine leukocyte esterase det ection by dipstickOrdered By: Gaetano Tilley on 02-24-2024 Leukocyte esterase Test strip Ql (U) Negative Negative [facility] Urine pHOrdered By: Gaetano wilkerson on 02-24-2024 pH (U) 7.0 [pH] 5.0 - 8.0 [facility] Urine specific gravity measu rementOrdered By: Gaetano Tilley on 02-24-2024 Specific gravity (U) [Rel density] 1.005 1.002-1.030 [facility] Urine urobilinogen measureme ntOrdered By: Gaetano Tilley on 02-24-2024 Urobilinogen Ql (U) Normal mg/dl Normal [facility] Absolute lymphocyte countOrd ered By: Gaetano Tilley on 12-13-2023 Lymphocytes Auto (Unsp spec) [#/Vol] 3.15 10*3/uL 0.83-4.51 [facility] Automated lymphocyte count a s percentage of total leukocytesOrdered By: Gaetano Tilley on 12-13-2023 Lymphocytes/100 WBC Auto (Unsp spec) 54.5 % 19-41 [facility] Basophil percentageOrdered B y: Gaetano Tilley on 12-13-2023 Basophil percentage 0-5 SEEN /hpf 0-5 [facility] Basophils/100 WBC (Bld) 0.5 % 0-1 [facility] Bilirubin [Mass/Vol] 0.40 mg/dL 0.20-1.00 [facility] Comment on above: For patients on eltr ombopag therapy, use of Dimension [place] TBIL is not recommended. Chloride [Moles/Vol] 109 mmol/L 98-107 [facility] Cholesterol [Mass/Vol] 343 mg/dL <200 [facility] Comment on above: <200 mg/dL Desirable 200-240 mg/dL Borderline >240 mg/dL High Risk Eosinophils/100 WBC (Bld) 0.9 % 0-5 [facility] Glucose [Mass/Vol] 90 mg/dL 74-106 [facility] Hemoglobin (Bld) [Mass/Vol] 12.4 g/dL 12.0-15.0 [facility] Monocytes/100 WBC (Bld) 9.3 % 0-10 [facility] Neutrophils (Bld) [#/Vol] 2.0 10*3/uL 2.0-7.7 [facility] Neutrophils/100 WBC (Bld) 34.6 % 47-70 [facility] Potassium [Moles/Vol] 3.5 mmol/L 3.5-5.1 [facility] Protein [Mass/Vol] 6.4 g/dL 6.4-8.2 [facility] Sodium [Moles/Vol] 140 mmol/L 136-145 [facility] Triglyceride [Mass/Vol] 169 mg/dL <199 [facility] Comment on above: The drugs N-Acetylcy steine and Metamizole may falsely depress this assay.Serum Triglycerides Reference Interval Normal <150 mg/dL Borderline high 150 - 199 mg/dL High 200 - 499 mg/dL Very High > or = 500 mg/dL WBC (Bld) [#/Vol] 5.8 10*3/uL 4.4-11.0 [facility] Bilirubin Test strip Ql (U)O rdered By: Gaetano Tilley on 12-13-2023 Bilirubin Ql (U) Negative Negative [facility] Determination of erythrocyte mean corpuscular volume (MCV)Ordered By: Gaetano Tilley on 12-13-2023 MCV (RBC) [Entitic vol] 102.9 fL 81-99 [facility] Erythrocyte distribution wid th ratioOrdered By: Gaetano Tilley on 12-13-2023 Erythrocyte distribution width (RBC) [Ratio] 14.6 % 11.6-14.6 [facility] Erythrocyte distribution wid th standard deviationOrdered By: Gaetano Tilley on 12-13-2023 Erythrocyte distribution width (RBC) [Entitic vol] 55.5 fL 35.1-43.9 [facility] Hematocrit Auto (Bld) [Volum e fraction]Ordered By: Gaetano Tilley on 12-13-2023 Hematocrit (Bld) [Volume fraction] 39.5 % 37-47 [facility] High density lipoprotein (HD L) measurementOrdered By: Gaetano Tilley on 12-13-2023 Cholesterol in HDL (Body fld) [Mass/Vol] 77 mg/dL >40 [facility] Comment on above: The drugs N-Acetylcy steine and Metamizole may falsely depress this assay. Reference Range HDL <40 mg/dL Low HDL Cholesterol HDL >or= 60 mg/dL High HDL Cholesterol Immature granulocytes/100 WB C Auto (Bld)Ordered By: Gaetano Tilley on 12-13-2023 Immature granulocytes/100 WBC (Bld) 0.200 % 0.0-0.9 [facility] Comment on above: IG% - Immature Granu locytes (promyelocytes, myelocytes and metamyelocytes) > 1% indicates that a LEFT SHIFT is Present. Ketones Test strip Ql (U)Ord ered By: Gaetano Tilley on 12-13-2023 Ketones Ql (U) Negative Negative [facility] Laboratory - Chemistry and C hemistry - challengeOrdered By: Gaetano Tilley on 12-13-2023 Albumin/Globulin [Mass ratio] 1.3 {ratio} 0.9-2.4 [facility] ALP [Catalytic activity/Vol] 49 U/L 45-117 [facility] ALT [Catalytic activity/Vol] 21 U/L 13-56 [facility] CO2 [Moles/Vol] 23.0 mmol/L 21.0-32.0 [facility] Globulin (S) [Mass/Vol] 2.8 g/dL 2.2-4.2 [facility] Magnesium [Mass/Vol] 2.4 mg/dL 1.6-2.6 [facility] Urea nitrogen/Creatinine [Mass ratio] 22.3 mg/mg 10-20 [facility] Laboratory - Hematology and Cell countsOrdered By: Gaetano Tilley on 12-13-2023 MCH (RBC) [Entitic mass] 32.3 pg 27.0-32.0 [facility] MCHC (RBC) [Mass/Vol] 31.4 g/dL 32-36 [facility] Nucleated RBC/100 WBC (Bld) [Ratio] 0 % 0-5 [facility] Platelets (Bld) [#/Vol] 237 10*3/uL 150-450 [facility] Low density lipoprotein (LDL ) cholesterol measurementOrdered By: Gaetano Tilley on 12-13-2023 Cholesterol in LDL (Body fld) [Moles/Vol] 232 mg/dL 0-130 [facility] Mucus LM Ql (Urine sed)Order ed By: Gaetano Tilley on 12-13-2023 Mucus Ql (Urine sed) 0 SEEN /hpf [facility] Nitrite Test strip Ql (U)Ord ered By: Gaetano Tilley on 12-13-2023 Nitrite Ql (U) Negative Negative [facility] No Panel InformationOrdered By: Gaetano Tilley on 12-13-2023 Estimated GFR (MDRD) Amer 112 mL/min >60 [facility] Comment on above: GFR Calc Estimated GFR (MDRD) Non-Af Amer 93 mL/min >60 [facility] Comment on above: Non- GFR Calc Urine RBC 0 SEEN /hpf 0-5 [facility] Vitamin D 25-Hydroxy 37.7 ng/mL [facility] Comment on above: Vitamin D 25(OH) Sta tus Range Deficiency <20 ng/mL (50nmol/L) Insufficiency 20 - 30 ng/mL (50 - 75 nmol/L) Sufficiency 30 - 100 ng/mL (75 - 250 nmol/L) Toxicity >100 ng/mL (>250 nmol/L) Platelet mean volume Garett-Ec ker (Bld) [Entitic vol]Ordered By: Gaetano Tilley on 12-13-2023 Platelet mean volume (Bld) [Entitic vol] 10.4 fL 6.2-12.0 [facility] Protein Test strip Ql (U)Ord ered By: Gaetano Tilley on 01-16-2024 Protein Ql (U) Negative Negative [facility] RBC Auto (Bld) [#/Vol]Ordere d By: Gaetano Tilley on 12-13-2023 RBC (Bld) [#/Vol] 3.84 10*6/uL 4.2-5.4 [facility] Serum or plasma calcium lamine urement (mass/volume)Ordered By: Gaetano Tilley on 12-13-2023 Calcium [Mass/Vol] 9.3 mg/dL 8.5-10.1 [facility] Serum or plasma creatinine m easurement (mass/volume)Ordered By: Gaetano Tilley on 12-13-2023 Creatinine [Mass/Vol] 0.67 mg/dL 0.55-1.02 [facility] Comment on above: The validity of the calculated GFR & GFRAA in patients over 70 years has not been determined. Clinical correlation is essential. Serum or plasma thyroid stim ulating hormone (TSH) measurement (units/volume)Ordered By: Gaetano Tilley on 12-13-2023 TSH Qn 3.86 uIU/mL 0.358-3.74 [facility] Serum or plasma urea nitroge n measurement (mass/volume)Ordered By: Gaetano Tilley on 12-13-2023 Urea nitrogen [Mass/Vol] 15 mg/dL 7-18 [facility] Squamous epithelial cells de tection in urine sediment by light microscopyOrdered By: Gaetano Tilley on 12-13-2023 Epithelial cells.squamous LM Ql (Urine sed) 0 SEEN /hpf 5-10 [facility] Thin prep Papanicolaou smear with manual screeningOrdered By: Gaetano Tilley on 12-13-2023 Thin prep Papanicolaou smear with manual screening 3.6 g/dL 3.2-5.0 [facility] Thin prep Papanicolaou smear with manual screening 16 U/L 15-37 [facility] Thin prep Papanicolaou smear with manual screening 8 5-15 [facility] Urine blood detectionOrdered By: Gaetano Tilley on 12-13-2023 RBC Ql (U) Negative Negative [facility] Urine clarityOrdered By: Venkat Tilley on 12-13-2023 Clarity (U) Sl. Cloudy Clear [facility] Urine color determinationOrd ered By: Gaetano Tilley on 12-13-2023 Color (U) Yellow Yellow [facility] Urine glucose detectionOrder ed By: Gaetano Tilley on 12-13-2023 Glucose Ql (U) Normal mg/dl Normal [facility] Urine leukocyte esterase det ection by dipstickOrdered By: Gaetano Tilley on 12-13-2023 Leukocyte esterase Test strip Ql (U) 25 /ul Negative [facility] Urine pHOrdered By: Gaetano wilkerson on 12-13-2023 pH (U) 6.5 [pH] 5.0 - 8.0 [facility] Urine sediment bacteria coun t by microscopy (number/high power field)Ordered By: Gaetano Tilley on 12-13-2023 Bacteria LM.HPF (Urine sed) [#/Area] 0 /[HPF] None Seen [facility] Urine specific gravity measu rementOrdered By: Gaetano Tilley on 12-13-2023 Specific gravity (U) [Rel density] 1.010 1.002-1.030 [facility] Urine urobilinogen measureme ntOrdered By: Gaetano Tilley on 12-13-2023 Urobilinogen Ql (U) Normal mg/dl Normal [facility] Very low density lipoprotein (VLDL) cholesterol measurementOrdered By: Gaetano Tilley on 12-13-2023 Cholesterol in VLDL Calc [Moles/Vol] 34 mg/dL 5-40 [facility] Absolute lymphocyte countOrd ered By: Sara Matute on 11-25-2023 Lymphocytes Auto (Unsp spec) [#/Vol] 0.63 10*3/uL 0.83-4.51 [facility] Basophil percentageOrdered B y: Sara Matute on 11-25-2023 Basophils/100 WBC (Bld) 0.3 % 0-1 [facility] Bilirubin [Mass/Vol] 0.60 mg/dL 0.20-1.00 [facility] Comment on above: For patients on eltr ombopag therapy, use of Dimension [place] TBIL is not recommended. Chloride [Moles/Vol] 102 mmol/L 98-107 [facility] Eosinophils/100 WBC (Bld) 0.2 % 0-5 [facility] Glucose [Mass/Vol] 110 mg/dL 74-106 [facility] Comment on above: Fasting Glucose resu lt from 100 to 125 mg/dL suggests IMPAIRED HOMEOSTASIS per A.D.A. criteria. Neutrophils (Bld) [#/Vol] 5.4 10*3/uL 2.0-7.7 [facility] Neutrophils/100 WBC (Bld) 83.8 % 47-70 [facility] Potassium [Moles/Vol] 3.8 mmol/L 3.5-5.1 [facility] Protein [Mass/Vol] 7.3 g/dL 6.4-8.2 [facility] Sodium [Moles/Vol] 138 mmol/L 136-145 [facility] WBC (Bld) [#/Vol] 6.4 10*3/uL 4.4-11.0 [facility] Blood erythrocytes count (nu mber/volume)Ordered By: Sara Matute on 11-25-2023 RBC (Bld) [#/Vol] 4.10 10*6/uL 4.2-5.4 [facility] Blood hemoglobin measurement (mass/volume)Ordered By: Sara Matute on 11-25-2023 Hemoglobin (Bld) [Mass/Vol] 13.3 g/dL 12.0-15.0 [facility] Blood lymphocytes/100 leukoc ytesOrdered By: Sara Matute on 11-25-2023 Lymphocytes/100 WBC (Bld) 9.8 % 19-41 [facility] Blood monocytes/100 leukocyt esOrdered By: Sara Matute on 11-25-2023 Monocytes/100 WBC (Bld) 5.6 % 0-10 [facility] Blood platelet mean volumeOr dered By: Sara Matute on 11-25-2023 Platelet mean volume (Bld) [Entitic vol] 10.5 fL 6.2-12.0 [facility] Determination of erythrocyte mean corpuscular volume (MCV)Ordered By: Sara Matute on 11-25-2023 MCV (RBC) [Entitic vol] 100.5 fL 81-99 [facility] Hematocrit Auto (Bld) [Volum e fraction]Ordered By: Sara Matute on 11-25-2023 Hematocrit (Bld) [Volume fraction] 41.2 % 37-47 [facility] - Chemistry and C hemistry - challengeOrdered By: Sara Matute on 11-25-2023 ALP [Catalytic activity/Vol] 54 U/L 45-117 [facility] ALT [Catalytic activity/Vol] 19 U/L 13-56 [facility] CO2 [Moles/Vol] 26.0 mmol/L 21.0-32.0 [facility] Globulin (S) [Mass/Vol] 3.7 g/dL 2.2-4.2 [facility] Urea nitrogen/Creatinine [Mass ratio] 12.5 mg/mg 10-20 [facility] - Hematology and Cell countsOrdered By: Sara Matute on 11-25-2023 Erythrocyte distribution width (RBC) [Entitic vol] 51.8 fL 35.1-43.9 [facility] Erythrocyte distribution width (RBC) [Ratio] 14.1 % 11.6-14.6 [facility] Immature granulocytes/100 WBC (Bld) 0.300 % 0.0-0.9 [facility] Comment on above: IG% - Immature Granu locytes (promyelocytes, myelocytes and metamyelocytes) > 1% indicates that a LEFT SHIFT is Present. MCH (RBC) [Entitic mass] 32.4 pg 27.0-32.0 [facility] Nucleated RBC/100 WBC (Bld) [Ratio] 0 % 0-5 [facility] MCHC Auto (RBC) [Mass/Vol]Or dered By: Sara Matute on 11-25-2023 MCHC (RBC) [Mass/Vol] 32.3 g/dL 32-36 [facility] No Panel InformationOrdered By: Sara Matute on 11-25-2023 Estimated GFR (MDRD) Amer 105 mL/min >60 [facility] Comment on above: GFR Calc Estimated GFR (MDRD) Non-Af Amer 86 mL/min >60 [facility] Comment on above: Non- GFR Calc Platelets bldOrdered By: Deuce Matute on 11-25-2023 Platelets (Bld) [#/Vol] 227 10*3/uL 150-450 [facility] Serum or plasma albumin lamine urement (mass/volume)Ordered By: Sara Matute on 11-25-2023 Albumin [Mass/Vol] 3.6 g/dL 3.2-5.0 [facility] Serum or plasma albumin/glob ulin mass ratioOrdered By: Sara Matute on 11-25-2023 Albumin/Globulin [Mass ratio] 1.0 {ratio} 0.9-2.4 [facility] Serum or plasma calcium lamine urement (mass/volume)Ordered By: Sara Matute on 11-25-2023 Calcium [Mass/Vol] 8.9 mg/dL 8.5-10.1 [facility] Serum or plasma creatinine m easurement (mass/volume)Ordered By: Sara Matute on 11-25-2023 Creatinine [Mass/Vol] 0.72 mg/dL 0.55-1.02 [facility] Comment on above: The validity of the calculated GFR & GFRAA in patients over 70 years has not been determined. Clinical correlation is essential. Serum or plasma urea nitroge n measurement (mass/volume)Ordered By: Sara Matute on 11-25-2023 Urea nitrogen [Mass/Vol] 9 mg/dL 7-18 [facility] Thin prep Papanicolaou smear with manual screeningOrdered By: Sara Juju on 11-25-2023 Thin prep Papanicolaou smear with manual screening 23 U/L 15-37 [facility] Thin prep Papanicolaou smear with manual screening 10 5-15 [facility] Absolute lymphocyte countOrd ered By: Sara Matute on 08-24-2023 Lymphocytes Auto (Unsp spec) [#/Vol] 1.77 10*3/uL 0.83-4.51 [facility] Basophil percentageOrdered B y: Sara Matute on 08-24-2023 Basophils/100 WBC (Bld) 0.7 % 0-1 [facility] Bilirubin [Mass/Vol] 0.50 mg/dL 0.20-1.00 [facility] Comment on above: For patients on eltr ombopag therapy, use of Dimension [place] TBIL is not recommended. Chloride [Moles/Vol] 109 mmol/L 98-107 [facility] Eosinophils/100 WBC (Bld) 1.3 % 0-5 [facility] Glucose [Mass/Vol] 89 mg/dL 74-106 [facility] Neutrophils (Bld) [#/Vol] 2.4 10*3/uL 2.0-7.7 [facility] Neutrophils/100 WBC (Bld) 51.1 % 47-70 [facility] Potassium [Moles/Vol] 4.0 mmol/L 3.5-5.1 [facility] Protein [Mass/Vol] 6.7 g/dL 6.4-8.2 [facility] Sodium [Moles/Vol] 140 mmol/L 136-145 [facility] WBC (Bld) [#/Vol] 4.6 10*3/uL 4.4-11.0 [facility] Blood erythrocytes count (nu mber/volume)Ordered By: Sara Matute on 08-24-2023 RBC (Bld) [#/Vol] 4.09 10*6/uL 4.2-5.4 [facility] Blood hemoglobin measurement (mass/volume)Ordered By: Sara Matute on 08-24-2023 Hemoglobin (Bld) [Mass/Vol] 13.5 g/dL 12.0-15.0 [facility] Blood lymphocytes/100 leukoc ytesOrdered By: Sara Matute on 08-24-2023 Lymphocytes/100 WBC (Bld) 38.6 % 19-41 [facility] Blood monocytes/100 leukocyt esOrdered By: Sara Matute on 08-24-2023 Monocytes/100 WBC (Bld) 8.3 % 0-10 [facility] Blood platelet mean volumeOr dered By: Sara Matute on 08-24-2023 Platelet mean volume (Bld) [Entitic vol] 10.1 fL 6.2-12.0 [facility] Determination of erythrocyte mean corpuscular volume (MCV)Ordered By: Sara Matute on 08-24-2023 MCV (RBC) [Entitic vol] 102.9 fL 81-99 [facility] Hematocrit Auto (Bld) [Volum e fraction]Ordered By: Sara Matute on 08-24-2023 Hematocrit (Bld) [Volume fraction] 42.1 % 37-47 [facility] - Chemistry and C hemistry - challengeOrdered By: Sara Matute on 08-24-2023 ALP [Catalytic activity/Vol] 58 U/L 45-117 [facility] ALT [Catalytic activity/Vol] 27 U/L 13-56 [facility] CO2 [Moles/Vol] 27.0 mmol/L 21.0-32.0 [facility] Globulin (S) [Mass/Vol] 3.0 g/dL 2.2-4.2 [facility] Urea nitrogen/Creatinine [Mass ratio] 14.7 mg/mg 10-20 [facility] - Hematology and Cell countsOrdered By: Sara Matute on 08-24-2023 Erythrocyte distribution width (RBC) [Entitic vol] 50.4 fL 35.1-43.9 [facility] Erythrocyte distribution width (RBC) [Ratio] 13.2 % 11.6-14.6 [facility] Immature granulocytes/100 WBC (Bld) 0.000 % 0.0-0.9 [facility] Comment on above: IG% - Immature Granu locytes (promyelocytes, myelocytes and metamyelocytes) > 1% indicates that a LEFT SHIFT is Present. MCH (RBC) [Entitic mass] 33.0 pg 27.0-32.0 [facility] Nucleated RBC/100 WBC (Bld) [Ratio] 0 % 0-5 [facility] MCHC Auto (RBC) [Mass/Vol]Or dered By: Sara Matute on 08-24-2023 MCHC (RBC) [Mass/Vol] 32.1 g/dL 32-36 [facility] No Panel InformationOrdered By: Sara Matute on 08-24-2023 Estimated GFR (MDRD) Amer 126 mL/min >60 [facility] Comment on above: GFR Calc Estimated GFR (MDRD) Non-Af Amer 104 mL/min >60 [facility] Comment on above: Non- GFR Calc Platelets bldOrdered By: Deuce Matute on 08-24-2023 Platelets (Bld) [#/Vol] 241 10*3/uL 150-450 [facility] Serum or plasma albumin lamine urement (mass/volume)Ordered By: Sara Matute on 08-24-2023 Albumin [Mass/Vol] 3.7 g/dL 3.2-5.0 [facility] Serum or plasma albumin/glob ulin mass ratioOrdered By: Sara Matute on 08-24-2023 Albumin/Globulin [Mass ratio] 1.2 {ratio} 0.9-2.4 [facility] Serum or plasma calcium lamine urement (mass/volume)Ordered By: Sara Matute on 08-24-2023 Calcium [Mass/Vol] 8.8 mg/dL 8.5-10.1 [facility] Serum or plasma creatinine m easurement (mass/volume)Ordered By: Sara Matute on 08-24-2023 Creatinine [Mass/Vol] 0.61 mg/dL 0.55-1.02 [facility] Comment on above: The validity of the calculated GFR & GFRAA in patients over 70 years has not been determined. Clinical correlation is essential. Serum or plasma urea nitroge n measurement (mass/volume)Ordered By: Sara Matute on 08-24-2023 Urea nitrogen [Mass/Vol] 9 mg/dL 7-18 [facility] Thin prep Papanicolaou smear with manual screeningOrdered By: Sara Matute on 08-24-2023 Thin prep Papanicolaou smear with manual screening 20 U/L 15-37 [facility] Thin prep Papanicolaou smear with manual screening 4 5-15 [facility] Absolute lymphocyte countOrd ered By: Dr. Matute on 04-27-2023 Lymphocytes Auto (Unsp spec) [#/Vol] 1.75 10*3/uL 0.83-4.51 [facility] Basophil percentageOrdered B y: Dr. Matute on 04-27-2023 Basophils/100 WBC (Bld) 0.5 % 0-1 [facility] Bilirubin [Mass/Vol] 0.60 mg/dL 0.20-1.00 [facility] Comment on above: For patients on eltr ombopag therapy, use of Dimension [place] TBIL is not recommended. Chloride [Moles/Vol] 108 mmol/L 98-107 [facility] Eosinophils/100 WBC (Bld) 1.6 % 0-5 [facility] Glucose [Mass/Vol] 86 mg/dL 74-106 [facility] Neutrophils (Bld) [#/Vol] 1.8 10*3/uL 2.0-7.7 [facility] Neutrophils/100 WBC (Bld) 45.3 % 47-70 [facility] Potassium [Moles/Vol] 4.0 mmol/L 3.5-5.1 [facility] Protein [Mass/Vol] 6.8 g/dL 6.4-8.2 [facility] Sodium [Moles/Vol] 143 mmol/L 136-145 [facility] WBC (Bld) [#/Vol] 3.9 10*3/uL 4.4-11.0 [facility] Blood erythrocytes count (nu mber/volume)Ordered By: Dr. Matute on 04-27-2023 RBC (Bld) [#/Vol] 4.15 10*6/uL 4.2-5.4 [facility] Blood hemoglobin measurement (mass/volume)Ordered By: Dr. Matute on 04-27-2023 Hemoglobin (Bld) [Mass/Vol] 13.3 g/dL 12.0-15.0 [facility] Blood lymphocytes/100 leukoc ytesOrdered By: Dr. Matute on 04-27-2023 Lymphocytes/100 WBC (Bld) 45.3 % 19-41 [facility] Blood monocytes/100 leukocyt esOrdered By: Dr. Matute on 04-27-2023 Monocytes/100 WBC (Bld) 7.0 % 0-10 [facility] Blood platelet mean volumeOr dered By: Dr. Matute on 04-27-2023 Platelet mean volume (Bld) [Entitic vol] 10.5 fL 6.2-12.0 [facility] Determination of erythrocyte mean corpuscular volume (MCV)Ordered By: Dr. Matute on 04-27-2023 MCV (RBC) [Entitic vol] 100.7 fL 81-99 [facility] Hematocrit Auto (Bld) [Volum e fraction]Ordered By: Dr. Matute on 04-27-2023 Hematocrit (Bld) [Volume fraction] 41.8 % 37-47 [facility] - Chemistry and C hemistry - challengeOrdered By: Dr. Matute on 04-27-2023 ALP [Catalytic activity/Vol] 66 U/L 45-117 [facility] ALT [Catalytic activity/Vol] 23 U/L 13-56 [facility] CO2 [Moles/Vol] 28.0 mmol/L 21.0-32.0 [facility] Globulin (S) [Mass/Vol] 2.9 g/dL 2.2-4.2 [facility] Urea nitrogen/Creatinine [Mass ratio] 12.3 mg/mg 10-20 [facility] - Hematology and Cell countsOrdered By: Dr. Matute on 04-27-2023 Erythrocyte distribution width (RBC) [Entitic vol] 50.2 fL 35.1-43.9 [facility] Erythrocyte distribution width (RBC) [Ratio] 13.5 % 11.6-14.6 [facility] Immature granulocytes/100 WBC (Bld) 0.300 % 0.0-0.9 [facility] Comment on above: IG% - Immature Granu locytes (promyelocytes, myelocytes and metamyelocytes) > 1% indicates that a LEFT SHIFT is Present. MCH (RBC) [Entitic mass] 32.0 pg 27.0-32.0 [facility] Nucleated RBC/100 WBC (Bld) [Ratio] 0 % 0-5 [facility] MCHC Auto (RBC) [Mass/Vol]Or dered By: Dr. Matute on 04-27-2023 MCHC (RBC) [Mass/Vol] 31.8 g/dL 32-36 [facility] No Panel InformationOrdered By: Dr. Matute on 04-27-2023 Estimated GFR (MDRD) Amer 118 mL/min >60 [facility] Comment on above: GFR Calc Estimated GFR (MDRD) Non-Af Amer 97 mL/min >60 [facility] Comment on above: Non- GFR Calc Platelets bldOrdered By: Dr. Matute on 04-27-2023 Platelets (Bld) [#/Vol] 245 10*3/uL 150-450 [facility] Serum or plasma albumin lamine urement (mass/volume)Ordered By: Dr. Matute on 04-27-2023 Albumin [Mass/Vol] 3.9 g/dL 3.2-5.0 [facility] Serum or plasma albumin/glob ulin mass ratioOrdered By: Dr. Matute on 04-27-2023 Albumin/Globulin [Mass ratio] 1.3 {ratio} 0.9-2.4 [facility] Serum or plasma calcium lamine urement (mass/volume)Ordered By: Dr. Matute on 04-27-2023 Calcium [Mass/Vol] 9.3 mg/dL 8.5-10.1 [facility] Serum or plasma creatinine m easurement (mass/volume)Ordered By: Dr. Matute on 04-27-2023 Creatinine [Mass/Vol] 0.65 mg/dL 0.55-1.02 [facility] Comment on above: The validity of the calculated GFR & GFRAA in patients over 70 years has not been determined. Clinical correlation is essential. Serum or plasma urea nitroge n measurement (mass/volume)Ordered By: Dr. Matute on 04-27-2023 Urea nitrogen [Mass/Vol] 8 mg/dL 7-18 [facility] Thin prep Papanicolaou smear with manual screeningOrdered By: Dr. Matute on 04-27-2023 Thin prep Papanicolaou smear with manual screening 25 U/L 15-37 [facility] Thin prep Papanicolaou smear with manual screening 7 5-15 [facility] Basophil percentageOrdered B y: Dr. Tilley on 04-22-2023 Chloride [Moles/Vol] 104 mmol/L 98-107 [facility] Glucose [Mass/Vol] 93 mg/dL 74-106 [facility] Potassium [Moles/Vol] 3.9 mmol/L 3.5-5.1 [facility] Sodium [Moles/Vol] 139 mmol/L 136-145 [facility] Laboratory - Chemistry and C hemistry - challengeOrdered By: Dr. Tilley on 04-22-2023 CO2 [Moles/Vol] 27.0 mmol/L 21.0-32.0 [facility] Urea nitrogen/Creatinine [Mass ratio] 14.5 mg/mg 10-20 [facility] No Panel InformationOrdered By: Dr. Tilley on 04-22-2023 Estimated GFR (MDRD) Amer 99 mL/min >60 [facility] Comment on above: GFR Calc Estimated GFR (MDRD) Non-Af Amer 81 mL/min >60 [facility] Comment on above: Non- GFR Calc Serum or plasma calcium lamine urement (mass/volume)Ordered By: Dr. Tilley on 04-22-2023 Calcium [Mass/Vol] 9.6 mg/dL 8.5-10.1 [facility] Serum or plasma creatinine m easurement (mass/volume)Ordered By: Dr. Tilley on 04-22-2023 Creatinine [Mass/Vol] 0.76 mg/dL 0.55-1.02 [facility] Comment on above: The validity of the calculated GFR & GFRAA in patients over 70 years has not been determined. Clinical correlation is essential. Serum or plasma urea nitroge n measurement (mass/volume)Ordered By: Dr. Tilley on 04-22-2023 Urea nitrogen [Mass/Vol] 11 mg/dL 7-18 [facility] Thin prep Papanicolaou smear with manual screeningOrdered By: Dr. Tilley on 04-22-2023 Thin prep Papanicolaou smear with manual screening 8 5-15 [facility] Basophil percentageOrdered B y: Dr. Nova on 04-15-2023 Basophil percentage < 0.9 mg/dL 0.55-1.02 [facility] No Panel InformationOrdered By: Dr. Nova on 04-15-2023 Bedside Estimated GFR (eGFR) > 60.0000 mL/min >60 [facility] Absolute lymphocyte countOrd ered By: Dr. Matute on 01-31-2023 Lymphocytes Auto (Unsp spec) [#/Vol] 1.56 10*3/uL 0.83-4.51 [facility] Basophil percentageOrdered B y: Dr. Matute on 01-31-2023 Basophils/100 WBC (Bld) 0.8 % 0-1 [facility] Bilirubin [Mass/Vol] 0.50 mg/dL 0.20-1.00 [facility] Comment on above: For patients on eltr ombopag therapy, use of Dimension [place] TBIL is not recommended. Chloride [Moles/Vol] 105 mmol/L 98-107 [facility] Eosinophils/100 WBC (Bld) 1.0 % 0-5 [facility] Glucose [Mass/Vol] 96 mg/dL 74-106 [facility] Neutrophils (Bld) [#/Vol] 1.8 10*3/uL 2.0-7.7 [facility] Neutrophils/100 WBC (Bld) 45.9 % 47-70 [facility] Potassium [Moles/Vol] 3.8 mmol/L 3.5-5.1 [facility] Protein [Mass/Vol] 6.9 g/dL 6.4-8.2 [facility] Sodium [Moles/Vol] 140 mmol/L 136-145 [facility] WBC (Bld) [#/Vol] 4.0 10*3/uL 4.4-11.0 [facility] Blood erythrocytes count (nu mber/volume)Ordered By: Dr. Matute on 01-31-2023 RBC (Bld) [#/Vol] 4.22 10*6/uL 4.2-5.4 [facility] Blood hemoglobin measurement (mass/volume)Ordered By: Dr. Matute on 01-31-2023 Hemoglobin (Bld) [Mass/Vol] 13.6 g/dL 12.0-15.0 [facility] Blood lymphocytes/100 leukoc ytesOrdered By: Dr. Matute on 01-31-2023 Lymphocytes/100 WBC (Bld) 39.4 % 19-41 [facility] Blood monocytes/100 leukocyt esOrdered By: Dr. Matute on 01-31-2023 Monocytes/100 WBC (Bld) 12.6 % 0-10 [facility] Blood platelet mean volumeOr dered By: Dr. Matute on 01-31-2023 Platelet mean volume (Bld) [Entitic vol] 10.1 fL 6.2-12.0 [facility] Determination of erythrocyte mean corpuscular volume (MCV)Ordered By: Dr. Matute on 01-31-2023 MCV (RBC) [Entitic vol] 100.5 fL 81-99 [facility] Hematocrit Auto (Bld) [Volum e fraction]Ordered By: Dr. Matute on 01-31-2023 Hematocrit (Bld) [Volume fraction] 42.4 % 37-47 [facility] Laboratory - Chemistry and C hemistry - challengeOrdered By: Dr. Matute on 01-31-2023 ALP [Catalytic activity/Vol] 62 U/L 45-117 [facility] ALT [Catalytic activity/Vol] 22 U/L 13-56 [facility] CO2 [Moles/Vol] 29.0 mmol/L 21.0-32.0 [facility] Globulin (S) [Mass/Vol] 3.0 g/dL 2.2-4.2 [facility] Urea nitrogen/Creatinine [Mass ratio] 13.8 mg/mg 10-20 [facility] Laboratory - Hematology and Cell countsOrdered By: Dr. Matute on 01-31-2023 Erythrocyte distribution width (RBC) [Entitic vol] 52.0 fL 35.1-43.9 [facility] Erythrocyte distribution width (RBC) [Ratio] 14.0 % 11.6-14.6 [facility] Immature granulocytes/100 WBC (Bld) 0.300 % 0.0-0.9 [facility] Comment on above: IG% - Immature Granu locytes (promyelocytes, myelocytes and metamyelocytes) > 1% indicates that a LEFT SHIFT is Present. MCH (RBC) [Entitic mass] 32.2 pg 27.0-32.0 [facility] Nucleated RBC/100 WBC (Bld) [Ratio] 0 % 0-5 [facility] MCHC Auto (RBC) [Mass/Vol]Or dered By: Dr. Matute on 01-31-2023 MCHC (RBC) [Mass/Vol] 32.1 g/dL 32-36 [facility] No Panel InformationOrdered By: Dr. Matute on 01-31-2023 Estimated GFR (MDRD) Amer 104 mL/min >60 [facility] Comment on above: GFR Calc Estimated GFR (MDRD) Non-Af Amer 86 mL/min >60 [facility] Comment on above: Non- GFR Calc Platelets bldOrdered By: Dr. Matute on 01-31-2023 Platelets (Bld) [#/Vol] 248 10*3/uL 150-450 [facility] Serum or plasma albumin lamine urement (mass/volume)Ordered By: Dr. Matute on 01-31-2023 Albumin [Mass/Vol] 3.9 g/dL 3.2-5.0 [facility] Serum or plasma albumin/glob ulin mass ratioOrdered By: Dr. Matute on 01-31-2023 Albumin/Globulin [Mass ratio] 1.3 {ratio} 0.9-2.4 [facility] Serum or plasma calcium lamine urement (mass/volume)Ordered By: Dr. Matute on 01-31-2023 Calcium [Mass/Vol] 9.4 mg/dL 8.5-10.1 [facility] Serum or plasma creatinine m easurement (mass/volume)Ordered By: Dr. Matute on 01-31-2023 Creatinine [Mass/Vol] 0.72 mg/dL 0.55-1.02 [facility] Comment on above: The validity of the calculated GFR & GFRAA in patients over 70 years has not been determined. Clinical correlation is essential. Serum or plasma urea nitroge n measurement (mass/volume)Ordered By: Dr. Matute on 01-31-2023 Urea nitrogen [Mass/Vol] 10 mg/dL 7-18 [facility] Thin prep Papanicolaou smear with manual screeningOrdered By: Dr. Matute on 01-31-2023 Thin prep Papanicolaou smear with manual screening 20 U/L 15-37 [facility] Thin prep Papanicolaou smear with manual screening 6 5-15 [facility] Basophil percentageOrdered B y: Dr. Tilley on 12-10-2022 Bilirubin [Mass/Vol] 0.30 mg/dL 0.20-1.00 [facility] Comment on above: For patients on eltr ombopag therapy, use of Dimension [place] TBIL is not recommended. Chloride [Moles/Vol] 104 mmol/L 98-107 [facility] Cholesterol [Mass/Vol] 237 mg/dL <200 [facility] Comment on above: <200 mg/dL Desirable 200-240 mg/dL Borderline >240 mg/dL High Risk Glucose [Mass/Vol] 94 mg/dL 74-106 [facility] Potassium [Moles/Vol] 4.0 mmol/L 3.5-5.1 [facility] Protein [Mass/Vol] 6.5 g/dL 6.4-8.2 [facility] Sodium [Moles/Vol] 142 mmol/L 136-145 [facility] Triglyceride [Mass/Vol] 244 mg/dL <199 [facility] Comment on above: The drugs N-Acetylcy steine and Metamizole may falsely depress this assay.Serum Triglycerides Reference Interval Normal <150 mg/dL Borderline high 150 - 199 mg/dL High 200 - 499 mg/dL Very High > or = 500 mg/dL Laboratory - Chemistry and C hemistry - challengeOrdered By: Dr. Tilley on 12-10-2022 ALP [Catalytic activity/Vol] 69 U/L 45-117 [facility] ALT [Catalytic activity/Vol] 19 U/L 13-56 [facility] CO2 [Moles/Vol] 29.0 mmol/L 21.0-32.0 [facility] Globulin (S) [Mass/Vol] 3.1 g/dL 2.2-4.2 [facility] Urea nitrogen/Creatinine [Mass ratio] 21.0 mg/mg 10-20 [facility] No Panel InformationOrdered By: Dr. Tilley on 12-10-2022 Estimated GFR (MDRD) Amer 114 mL/min >60 [facility] Comment on above: GFR Calc Estimated GFR (MDRD) Non-Af Amer 94 mL/min >60 [facility] Comment on above: Non- GFR Calc Thyroid Stimulating Hormone (TSH) 2.42 uIU/mL 0.358-3.74 [facility] Serum or plasma albumin lamine urement (mass/volume)Ordered By: Dr. Tilley on 12-10-2022 Albumin [Mass/Vol] 3.4 g/dL 3.2-5.0 [facility] Serum or plasma albumin/glob ulin mass ratioOrdered By: Dr. Tilley on 12-10-2022 Albumin/Globulin [Mass ratio] 1.1 {ratio} 0.9-2.4 [facility] Serum or plasma calcium lamine urement (mass/volume)Ordered By: Dr. Tilley on 12-10-2022 Calcium [Mass/Vol] 9.3 mg/dL 8.5-10.1 [facility] Serum or plasma cholesterol in HDL measurement (mass/volume)Ordered By: Dr. Tilley on 12-10-2022 Cholesterol in HDL [Mass/Vol] 55 mg/dL >40 [facility] Comment on above: The drugs N-Acetylcy steine and Metamizole may falsely depress this assay. Reference Range HDL <40 mg/dL Low HDL Cholesterol HDL >or= 60 mg/dL High HDL Cholesterol Serum or plasma cholesterol in VLDL measurement (mass/volume)Ordered By: Dr. Tilley on 12-10-2022 Cholesterol in VLDL [Mass/Vol] 49 mg/dL 5-40 [facility] Serum or plasma creatinine m easurement (mass/volume)Ordered By: Dr. Tilley on 12-10-2022 Creatinine [Mass/Vol] 0.67 mg/dL 0.55-1.02 [facility] Comment on above: The validity of the calculated GFR & GFRAA in patients over 70 years has not been determined. Clinical correlation is essential. Serum or plasma low density lipoprotein (LDL) cholesterol measurement (mass/volume)Ordered By: Dr. Tilley on 12-10-2022 Cholesterol in LDL [Mass/Vol] 133 mg/dL 0-130 [facility] Serum or plasma urea nitroge n measurement (mass/volume)Ordered By: Dr. Tilley on 12-10-2022 Urea nitrogen [Mass/Vol] 14 mg/dL 7-18 [facility] Thin prep Papanicolaou smear with manual screeningOrdered By: Dr. Tilley on 12-10-2022 Thin prep Papanicolaou smear with manual screening 17 U/L 15-37 [facility] Thin prep Papanicolaou smear with manual screening 9 5-15 [facility] Absolute lymphocyte countOrd ered By: Dr. Matute on 11-04-2022 Lymphocytes Auto (Unsp spec) [#/Vol] 1.89 10*3/uL 0.83-4.51 [facility] Basophil percentageOrdered B y: Dr. Matute on 12-08-2022 Basophils/100 WBC (Bld) 0.7 % 0-1 [facility] Bilirubin [Mass/Vol] 0.60 mg/dL 0.20-1.00 [facility] Comment on above: For patients on eltr ombopag therapy, use of Dimension [place] TBIL is not recommended. Chloride [Moles/Vol] 108 mmol/L 98-107 [facility] Eosinophils/100 WBC (Bld) 1.3 % 0-5 [facility] Glucose [Mass/Vol] 91 mg/dL 74-106 [facility] Neutrophils (Bld) [#/Vol] 2.9 10*3/uL 2.0-7.7 [facility] Neutrophils/100 WBC (Bld) 55.0 % 47-70 [facility] Potassium [Moles/Vol] 4.2 mmol/L 3.5-5.1 [facility] Protein [Mass/Vol] 6.6 g/dL 6.4-8.2 [facility] Sodium [Moles/Vol] 141 mmol/L 136-145 [facility] WBC (Bld) [#/Vol] 5.4 10*3/uL 4.4-11.0 [facility] Blood erythrocytes count (nu mber/volume)Ordered By: Dr. Matute on 11-04-2022 RBC (Bld) [#/Vol] 4.21 10*6/uL 4.2-5.4 [facility] Blood hemoglobin measurement (mass/volume)Ordered By: Dr. Matute on 11-04-2022 Hemoglobin (Bld) [Mass/Vol] 14.0 g/dL 12.0-15.0 [facility] Blood lymphocytes/100 leukoc ytesOrdered By: Dr. Matute on 11-04-2022 Lymphocytes/100 WBC (Bld) 35.3 % 19-41 [facility] Blood monocytes/100 leukocyt esOrdered By: Dr. Matute on 11-04-2022 Monocytes/100 WBC (Bld) 7.5 % 0-10 [facility] Blood platelet mean volumeOr dered By: Dr. Matute on 11-04-2022 Platelet mean volume (Bld) [Entitic vol] 10.2 fL 6.2-12.0 [facility] Determination of erythrocyte mean corpuscular volume (MCV)Ordered By: Dr. Matute on 11-04-2022 MCV (RBC) [Entitic vol] 102.6 fL 81-99 [facility] Hematocrit Auto (Bld) [Volum e fraction]Ordered By: Dr. Matute on 11-04-2022 Hematocrit (Bld) [Volume fraction] 43.2 % 37-47 [facility] Laboratory - Chemistry and C hemistry - challengeOrdered By: Dr. Matute on 11-04-2022 ALP [Catalytic activity/Vol] 57 U/L 45-117 [facility] ALT [Catalytic activity/Vol] 28 U/L 13-56 [facility] CO2 [Moles/Vol] 27.0 mmol/L 21.0-32.0 [facility] Globulin (S) [Mass/Vol] 2.6 g/dL 2.2-4.2 [facility] Urea nitrogen/Creatinine [Mass ratio] 17.3 mg/mg 10-20 [facility] Laboratory - Hematology and Cell countsOrdered By: Dr. Matute on 11-04-2022 Erythrocyte distribution width (RBC) [Entitic vol] 54.2 fL 35.1-43.9 [facility] Erythrocyte distribution width (RBC) [Ratio] 14.3 % 11.6-14.6 [facility] Immature granulocytes/100 WBC (Bld) 0.200 % 0.0-0.9 [facility] Comment on above: IG% - Immature Granu locytes (promyelocytes, myelocytes and metamyelocytes) > 1% indicates that a LEFT SHIFT is Present. MCH (RBC) [Entitic mass] 33.3 pg 27.0-32.0 [facility] Nucleated RBC/100 WBC (Bld) [Ratio] 0 % 0-5 [facility] MCHC Auto (RBC) [Mass/Vol]Or dered By: Dr. Matute on 11-04-2022 MCHC (RBC) [Mass/Vol] 32.4 g/dL 32-36 [facility] No Panel InformationOrdered By: Dr. Matute on 11-04-2022 Estimated GFR (MDRD) Amer 109 mL/min >60 [facility] Comment on above: GFR Calc Estimated GFR (MDRD) Non-Af Amer 90 mL/min >60 [facility] Comment on above: Non- GFR Calc Platelets bldOrdered By: Dr. Matute on 11-04-2022 Platelets (Bld) [#/Vol] 283 10*3/uL 150-450 [facility] Serum or plasma albumin lamine urement (mass/volume)Ordered By: Dr. Matute on 11-04-2022 Albumin [Mass/Vol] 4.0 g/dL 3.2-5.0 [facility] Serum or plasma albumin/glob ulin mass ratioOrdered By: Dr. Matute on 11-04-2022 Albumin/Globulin [Mass ratio] 1.5 {ratio} 0.9-2.4 [facility] Serum or plasma calcium lamine urement (mass/volume)Ordered By: Dr. Matute on 11-04-2022 Calcium [Mass/Vol] 9.1 mg/dL 8.5-10.1 [facility] Serum or plasma creatinine m easurement (mass/volume)Ordered By: Dr. Matute on 11-04-2022 Creatinine [Mass/Vol] 0.70 mg/dL 0.55-1.02 [facility] Comment on above: The validity of the calculated GFR & GFRAA in patients over 70 years has not been determined. Clinical correlation is essential. Serum or plasma urea nitroge n measurement (mass/volume)Ordered By: Dr. Matute on 11-04-2022 Urea nitrogen [Mass/Vol] 12 mg/dL 7-18 [facility] Thin prep Papanicolaou smear with manual screeningOrdered By: Dr. Matute on 11-04-2022 Thin prep Papanicolaou smear with manual screening 21 U/L 15-37 [facility] Thin prep Papanicolaou smear with manual screening 6 5-15 [facility] Absolute lymphocyte counton 08-09-2022 Lymphocytes Auto (Unsp spec) [#/Vol] 1.64 10*3/uL 0.83-4.51 [facility] Work Phone: Basophil percentageon 2021 Basophils/100 WBC (Bld) 0.5 % 0-1 [facility] Work Phone: [phone] Bilirubin [Mass/Vol] 0.40 mg/dL 0.20-1.00 [facility] Work Phone: Comment on above: For patients on eltr ombopag therapy, use of Dimension [place] TBIL is not recommended. Chloride [Moles/Vol] 107 mmol/L 98-107 [facility] Work Phone: Eosinophils/100 WBC (Bld) 1.2 % 0-5 [facility] Work Phone: Glucose [Mass/Vol] 90 mg/dL 74-106 [facility] Work Phone: Neutrophils (Bld) [#/Vol] 2.1 10*3/uL 2.0-7.7 [facility] Work Phone: Neutrophils/100 WBC (Bld) 50.9 % 47-70 [facility] Work Phone: Potassium [Moles/Vol] 4.0 mmol/L 3.5-5.1 [facility] Work Phone: Protein [Mass/Vol] 6.8 g/dL 6.4-8.2 [facility] Work Phone: Sodium [Moles/Vol] 141 mmol/L 136-145 [facility] Work Phone: WBC (Bld) [#/Vol] 4.1 10*3/uL 4.4-11.0 [facility] Work Phone: Blood erythrocytes count (nu mber/volume)on 08-09-2022 RBC (Bld) [#/Vol] 3.98 10*6/uL 4.2-5.4 [facility] Work Phone: Blood hemoglobin measurement (mass/volume)on 08-09-2022 Hemoglobin (Bld) [Mass/Vol] 13.1 g/dL 12.0-15.0 [facility] Work Phone: Blood lymphocytes/100 leukoc yteson 08-09-2022 Lymphocytes/100 WBC (Bld) 39.7 % 19-41 [facility] Work Phone: Blood monocytes/100 leukocyt eson 08-09-2022 Monocytes/100 WBC (Bld) 7.5 % 0-10 [facility] Work Phone: Blood platelet mean volumeon 08-09-2022 Platelet mean volume (Bld) [Entitic vol] 10.0 fL 6.2-12.0 [facility] Work Phone: Determination of erythrocyte mean corpuscular volume (MCV)on 08-09-2022 MCV (RBC) [Entitic vol] 99.7 fL 81-99 [facility] Work Phone: Hematocrit Auto (Bld) [Volum e fraction]on 08-09-2022 Hematocrit (Bld) [Volume fraction] 39.7 % 37-47 [facility] Work Phone: Laboratory - Chemistry and C hemistry - challengeon 08-09-2022 ALP [Catalytic activity/Vol] 51 U/L 45-117 [facility] Work Phone: ALT [Catalytic activity/Vol] 24 U/L 13-56 [facility] Work Phone: CO2 [Moles/Vol] 28.0 mmol/L 21.0-32.0 [facility] Work Phone: Globulin (S) [Mass/Vol] 3.0 g/dL 2.2-4.2 [facility] Work Phone: Urea nitrogen/Creatinine [Mass ratio] 23.5 mg/mg 10-20 [facility] Work Phone: Laboratory - Hematology and Cell countson 08-09-2022 Erythrocyte distribution width (RBC) [Entitic vol] 49.0 fL 35.1-43.9 [facility] Work Phone: Erythrocyte distribution width (RBC) [Ratio] 13.3 % 11.6-14.6 [facility] Work Phone: Immature granulocytes/100 WBC (Bld) 0.200 % 0.0-0.9 [facility] Work Phone: Comment on above: IG% - Immature Granu locytes (promyelocytes, myelocytes and metamyelocytes) > 1% indicates that a LEFT SHIFT is Present. MCH (RBC) [Entitic mass] 32.9 pg 27.0-32.0 [facility] Work Phone: Nucleated RBC/100 WBC (Bld) [Ratio] 0 % 0-5 [facility] Work Phone: MCHC Auto (RBC) [Mass/Vol]on 08-09-2022 MCHC (RBC) [Mass/Vol] 33.0 g/dL 32-36 [facility] Work Phone: No Panel Informationon 08-09 Estimated GFR (MDRD) Amer 111 mL/min >60 [facility] Work Phone: Comment on above: GFR Calc Estimated GFR (MDRD) Non-Af Amer 92 mL/min >60 [facility] Work Phone: Comment on above: Non- GFR Calc Platelets bldon 08-09-2022 Platelets (Bld) [#/Vol] 236 10*3/uL 150-450 [facility] Work Phone: Serum or plasma albumin lamine urement (mass/volume)on 08-09-2022 Albumin [Mass/Vol] 3.8 g/dL 3.2-5.0 [facility] Work Phone: Serum or plasma albumin/glob ulin mass ratioon 08-09-2022 Albumin/Globulin [Mass ratio] 1.3 {ratio} 0.9-2.4 [facility] Work Phone: Serum or plasma calcium lamine urement (mass/volume)on 08-09-2022 Calcium [Mass/Vol] 9.5 mg/dL 8.5-10.1 [facility] Work Phone: Serum or plasma creatinine m easurement (mass/volume)on 08-09-2022 Creatinine [Mass/Vol] 0.68 mg/dL 0.55-1.02 [facility] Work Phone: Comment on above: The validity of the calculated GFR & GFRAA in patients over 70 years has not been determined. Clinical correlation is essential. Serum or plasma urea nitroge n measurement (mass/volume)on 08-09-2022 Urea nitrogen [Mass/Vol] 16 mg/dL 7-18 [facility] Work Phone: Thin prep Papanicolaou smear with manual screeningon 08-09-2022 Thin prep Papanicolaou smear with manual screening 20 U/L 15-37 [facility] Work Phone: Thin prep Papanicolaou smear with manual screening 6 5-15 [facility] Work Phone: Absolute lymphocyte counton 05-17-2022 Lymphocytes Auto (Unsp spec) [#/Vol] 1.73 10*3/uL 0.83-4.51 [facility] Work Phone: Basophil percentageon 2021 Basophils/100 WBC (Bld) 0.5 % 0-1 [facility] Work Phone: Bilirubin [Mass/Vol] 0.50 mg/dL 0.20-1.00 [facility] Work Phone: Comment on above: For patients on eltr ombopag therapy, use of Dim[place] TBIL is not recommended. Chloride [Moles/Vol] 105 mmol/L 98-107 [facility] Work Phone: Eosinophils/100 WBC (Bld) 1.2 % 0-5 [facility] Work Phone: Glucose [Mass/Vol] 104 mg/dL 74-106 [facility] Work Phone: Comment on above: Fasting Glucose resu lt from 100 to 125 mg/dL suggests IMPAIRED HOMEOSTASIS per A.D.A. criteria. Neutrophils (Bld) [#/Vol] 3.9 10*3/uL 2.0-7.7 [facility] Work Phone: Neutrophils/100 WBC (Bld) 63.3 % 47-70 [facility] Work Phone: Potassium [Moles/Vol] 3.5 mmol/L 3.5-5.[address] [facility] Work Phone: Protein [Mass/Vol] 7.4 g/dL 6.4-8.[address] [facility] Work Phone: Sodium [Moles/Vol] 139 mmol/L 136-[address] [facility] Work Phone: [phone] WBC (Bld) [#/Vol] 6.1 10*3/uL 4.4-11.0 [facility] Work Phone: Blood erythrocytes count (nu mber/volume)on 05-17-2022 RBC (Bld) [#/Vol] 4.06 10*6/uL 4.2-5.4 [facility] Work Phone: [phone] Blood hemoglobin measurement (mass/volume)on 05-17-2022 Hemoglobin (Bld) [Mass/Vol] 13.0 g/dL 12.0-15.0 [facility] Work Phone: Blood lymphocytes/100 leukoc yteson 05-17-2022 Lymphocytes/100 WBC (Bld) 28.5 % 19-41 [facility] Work Phone: Blood monocytes/100 leukocyt eson 05-17-2022 Monocytes/100 WBC (Bld) 6.3 % 0-10 [facility] Work Phone: Blood platelet mean volumeon 05-17-2022 Platelet mean volume (Bld) [Entitic vol] 9.7 fL 6.2-12.0 [facility] Work Phone: Determination of erythrocyte mean corpuscular volume (MCV)on 05-17-2022 MCV (RBC) [Entitic vol] 98.0 fL 81-99 [facility] Work Phone: Hematocrit Auto (Bld) [Volum e fraction]on 05-17-2022 Hematocrit (Bld) [Volume fraction] 39.8 % 37-47 [facility] Work Phone: Laboratory - Chemistry and C hemistry - challengeon 05-17-2022 ALP [Catalytic activity/Vol] 59 U/L 45-117 [facility] Work Phone: ALT [Catalytic activity/Vol] 27 U/L 13-56 [facility] Work Phone: CO2 [Moles/Vol] 28.0 mmol/L 21.0-32.0 [facility] Work Phone: Globulin (S) [Mass/Vol] 3.2 g/dL 2.2-4.2 [facility] Work Phone: Urea nitrogen/Creatinine [Mass ratio] 13.1 mg/mg 10-20 [facility] Work Phone: Laboratory - Hematology and Cell countson 05-17-2022 Erythrocyte distribution width (RBC) [Entitic vol] 59.9 fL 35.1-43.9 [facility] Work Phone: Erythrocyte distribution width (RBC) [Ratio] 16.8 % 11.6-14.6 [facility] Work Phone: Immature granulocytes/100 WBC (Bld) 0.200 % 0.0-0.9 [facility] Work Phone: Comment on above: IG% - Immature Granu locytes (promyelocytes, myelocytes and metamyelocytes) > 1% indicates that a LEFT SHIFT is Present. MCH (RBC) [Entitic mass] 32.0 pg 27.0-32.0 [facility] Work Phone: Nucleated RBC/100 WBC (Bld) [Ratio] 0 % 0-5 [facility] Work Phone: MCHC Auto (RBC) [Mass/Vol]on 05-17-2022 MCHC (RBC) [Mass/Vol] 32.7 g/dL 32-36 [facility] Work Phone: No Panel Informationon 05-17 Estimated GFR (MDRD) Amer 88 mL/min >60 [facility] Work Phone: Comment on above: GFR Calc Estimated GFR (MDRD) Non-Af Amer 73 mL/min >60 [facility] Work Phone: Comment on above: Non- GFR Calc Platelets bldon 05-17-2022 Platelets (Bld) [#/Vol] 276 10*3/uL 150-450 [facility] Work Phone: Serum or plasma albumin lamine urement (mass/volume)on 05-17-2022 Albumin [Mass/Vol] 4.2 g/dL 3.2-5.0 [facility] Work Phone: Serum or plasma albumin/glob ulin mass ratioon 05-17-2022 Albumin/Globulin [Mass ratio] 1.3 {ratio} 0.9-2.4 [facility] Work Phone: Serum or plasma calcium lamine urement (mass/volume)on 05-17-2022 Calcium [Mass/Vol] 9.1 mg/dL 8.5-10.1 [facility] Work Phone: Serum or plasma creatinine m easurement (mass/volume)on 05-17-2022 Creatinine [Mass/Vol] 0.84 mg/dL 0.55-1.02 [facility] Work Phone: Comment on above: The validity of the calculated GFR & GFRAA in patients over 70 years has not been determined. Clinical correlation is essential. Serum or plasma urea nitroge n measurement (mass/volume)on 05-17-2022 Urea nitrogen [Mass/Vol] 11 mg/dL 7-18 [facility] Work Phone: Thin prep Papanicolaou smear with manual screeningon 05-17-2022 Thin prep Papanicolaou smear with manual screening 22 U/L 15-37 [facility] Work Phone: Thin prep Papanicolaou smear with manual screening 6 5-15 [facility] Work Phone: DEXA BONE DENSITY AXIAL KALEN [place] 02-17-2022 [id number] ACCESSION EXAM DATE/TIME PROCEDURE ORDERING PROVIDER [id number] 02/17/2022 08:19 EDT OT Bone Density DEXA DO CASTILLO LISA Axial Skeleton CPT code 28100 Reason For Exam (OT Bone Density DEXA Axial Skeleton) asymptomatic postmenopausal state Report DXA BONE DENSITOMETRY: CLINICAL INDICATION: Asymptomatic post-menopausal status. Screening for osteoporosis. COMPARISON: 07/08/2015 TECHNIQUE: Quantitative bone mineral densitometry of the hip and lumbar spine was performed with a dual energy x-ray observed absorptiometry device - [employer] at some institutions, [employer] at others. Regions of interest were obtained through the proximal femur and compared to the normal value of young adult women. Regions of interest were also obtained through the lumbar vertebrae with an average value determined and compared to the normal value of young adult women. The difference between your measured bone density and the bone density of a normal young woman is expressed in standard deviations as the T score. Similarly, your measured bone density is also compared to age and race matched values, and expressed in standard deviations as the Z score. According to World Health Organization criteria: T-score of -1.0 or higher is normal. T-score between -1.1 to < -2.5 is low bone density or osteopenia. T-score of -2.5 or lower is abnormally low, compatible with osteoporosis. T-score of -2.5 or less plus fragility fracture indicates severe osteoporosis. FINDINGS: Femoral neck RIGHT Density: 0.656 g/cm2 T-score: -1.7 Z-score: -0.3 Total Hip RIGHT Density: 0.761 g/cm2 T-score: -1.5 Z-score: -0.3 Comparison from prior examination: The bone demineralization has progressed significantly when compared to the baseline study of 2014. Spine: L1-L4 Density 0.896 g/cm2 T-score: -1.4 Z-score: 0.3 Comparison from prior examination: The bone demineralization has progressed Bone Density Report significantly when compared to the baseline study of 2014. IMPRESSION: 1. Osteopenia. 2. The bone demineralization has progressed significantly when compared to the baseline study of 2014. FRACTURE RISK: The estimated 10 year risk for a hip fracture is 2.6% and for a major osteoporosis-related fracture is 19%. (FRAX web version 3.11). RECOMMENDATIONS: General recommendations for prevention of bone loss include: 7610-2946 mg calcium intake per day for adults >50yrs, and no history of renal calculi 800-1000 IU of vitamin D3 per day for adults >50yrs, and no history of renal calculi Weight bearing exercise Discontinue smoking Avoid excessive use of caffeine, soft drinks, and alcoholic beverages In addition, balance training and fall prevention programs can help reduce the risk of fractures Pharmacologic treatment recommendations: Initiate pharmacologic treatment in patients with hip or vertebral fracture. In those with T scores by DXA In postmenopausal women and men age 50 or older with low bone mass (T score between -1.0 and -2.5 [osteopenia]) at the femoral neck, total hip, or lumbar spine by DXA have a 10 year hip fracture probability >/= 3% or a 10 year major osteoporosis-related fracture probability >/= 20% based on the [place]-adapted WHO fracture risk model (FRAX). Current FDA-approved pharmacologic options for osteoporosis treatment include bisphosphonates (Fosamax), ibandronate (Boniva), risedronate (Actonel), zoledronic acid (Reclast), estrogens and other hormonal therapies (Evista), parathyroid hormone (Forteo), and denosumab (Prolia). Initiation of pharmacologic therapy should happen only after thorough medical evaluation, discussion of risks and benefits, and with regular monitoring of the therapeutic regimen. Follow-up recommendations: Patients with osteoporosis or or at high risk for fracture should have follow-up bone density tests. For Medicare patients, routine testing is allowed every 2 years. Patients who have low bone mass (T score -2.0 to -2.49), who are currently on treatment for low bone mass, or having risk factors for accelerated bone loss (glucocorticoids, aromatase inhibitors, etc.), consider repeat DXA in 1-2 years. Patients with osteopenia and no risk factors may consider follow-up every 3-5 years. References: National Osteoporosis Foundation. Clinician's Guide to Prevention and Treatment of Osteoporosis. Osteoporosis International. Armstrong, 2014. DXA Scan Screening, Reporting (FRAX Score) and Follow-up. Breonna of Knowledge Evidence - based Summaries. [facility] for Education and Research 2017. (more content not included)... Minesh Motley MD - 02/17/2022 Patient Name: AUGUSTUS TARIQ Bone Density ACCESSION EXAM DATE/TIME PROCEDURE ORDERING PROVIDER [id number] 02/17/2022 08:19 EDT OT Bone Density DEXA ESTERLE, DO, SURI Axial Skeleton CPT code 52133 Reason For Exam (OT Bone Density DEXA Axial Skeleton) asymptomatic postmenopausal state Report DXA BONE DENSITOMETRY: CLINICAL INDICATION: Asymptomatic post-menopausal status. Screening for osteoporosis. COMPARISON: 07/08/2015 TECHNIQUE: Quantitative bone mineral densitometry of the hip and lumbar spine was performed with a dual energy x-ray observed absorptiometry device - [employer] at some institutions, [employer] at others. Regions of interest were obtained through the proximal femur and compared to the normal value of young adult women. Regions of interest were also obtained through the lumbar vertebrae with an average value determined and compared to the normal value of young adult women. The difference between your measured bone density and the bone density of a normal young woman is expressed in standard deviations as the T score. Similarly, your measured bone density is also compared to age and race matched values, and expressed in standard deviations as the Z score. According to World Health Organization criteria: T-score of -1.0 or higher is normal. T-score between -1.1 to < -2.5 is low bone density or osteopenia. T-score of -2.5 or lower is abnormally low, compatible with osteoporosis. T-score of -2.5 or less plus fragility fracture indicates severe osteoporosis. FINDINGS: Femoral neck RIGHT Density: 0.656 g/cm2 T-score: -1.7 Z-score: -0.3 Total Hip RIGHT Density: 0.761 g/cm2 T-score: -1.5 Z-score: -0.3 Comparison from prior examination: The bone demineralization has progressed significantly when compared to the baseline study of 2014. Spine: L1-L4 Density 0.896 g/cm2 T-score: -1.4 Z-score: 0.3 Comparison from prior examination: The bone demineralization has progressed Bone Density Report significantly when compared to the baseline study of 2014. IMPRESSION: 1. Osteopenia. 2. The bone demineralization has progressed significantly when compared to the baseline study of 2015. FRACTURE RISK: The estimated 10 year risk for a hip fracture is 2.6% and for a major osteoporosis-related fracture is 19%. (FRAX web version 3.11). RECOMMENDATIONS: General recommendations for prevention of bone loss include: 4623-7052 mg calcium intake per day for adults >50yrs, and no history of renal calculi 800-1000 IU of vitamin D3 per day for adults >50yrs, and no history of renal calculi Weight bearing exercise Discontinue smoking Avoid excessive use of caffeine, soft drinks, and alcoholic beverages In addition, balance training and fall prevention programs can help reduce the risk of fractures Pharmacologic treatment recommendations: Initiate pharmacologic treatment in patients with hip or vertebral fracture. In those with T scores spine by DXA In postmenopausal women and men age 50 or older with low bone mass (T score between -1.0 and -2.5 [osteopenia]) at the femoral neck, total hip, or lumbar spine by DXA have a 10 year hip fracture probability >/= 3% or a 10 year major osteoporosis-related fracture probability >/= 20% based on the [place]-adapted WHO fracture risk model (FRAX). Current FDA-approved pharmacologic options for osteoporosis treatment include bisphosphonates (Fosamax), ibandronate (Boniva), risedronate (Actonel), zoledronic acid (Reclast), estrogens and other hormonal therapies (Evista), parathyroid hormone (Forteo), and denosumab (Prolia). Initiation of pharmacologic therapy should happen only after thorough medical evaluation, discussion of risks and benefits, and with regular monitoring of the therapeutic regimen. Follow-up recommendations: Patients with osteoporosis or or at high risk for fracture should have follow-up bone density tests. For Medicare patients, routine testing is allowed every 2 years. Patients who have low bone mass (T score -2.0 to -2.49), who are currently on treatment for low bone mass, or having risk factors for accelerated bone loss (glucocorticoids, aromatase inhibitors, etc.), consider repeat DXA in 1-2 years. Patients with osteopenia and no risk factors may consider follow-up every 3-5 years. References: National Osteoporosis Foundation. Clinician's Guide to Prevention and Treatment of Osteoporosis. Osteoporosis International. Armstrong, 2014. DXA Scan Screening, Reporting (FRAX Score) and Follow-up. Breonna of Knowledge Evidence - based Summaries. [facility] for Education and Research 2017. Bone Density Report Report Dictated on Workstation: [id number] --- Final --- Dictating Physic (more content not included)... [employer] Work Phone: DEXA BONE DENSITY AXIAL SKEL ETONOrdered By: Minesh Clement on 02-17-2022 [employer] Work Phone: MG Breast Tomosynthesis Scr Blon 02-17-2022 MG Breast Tomosynthesis Scr Bl Patient Name: AUGUSTUS TARIQ Mammography ACCESSION EXAM DATE/TIME PROCEDURE ORDERING PROVIDER [id number] 02/17/2022 08:00 EDT MG Breast Tomosynthesis DO CASTILLO LISA BI Scr CPT code 02105 [id number] Reason For Exam (MG Breast Tomosynthesis BI Scr) screening Report TIME SINCE LAST MAMMOGRAM: Last mammogram was performed 1 year and 1 month ago. REASON FOR EXAM: screening, asymptomatic. PROCEDURE: MG BREAST TOMOSYNTHESIS BL SCR: FEBRUARY 17, 2022 - 2D/3D Procedure 3D Bilateral CC and MLO view(s) were taken. 2D Bilateral CC and MLO view(s) were taken. Prior study comparison: January 30, 2021, bilateral MG breast tomosynthesis bl scr performed at [facility]. September 18, 2019, bilateral MG breast tomosynthesis bl scr performed at [facility]. July 08, 2015, bilateral screening mammogram performed at [facility]. TISSUE DENSITY: BIRADS B - There are scattered fibroglandular densities. . RISK ALERT: The Cancer Risk Assessment scores below the recommendation of this report contain an outcome above the normal risk range. PATIENT CANCER HISTORY: Self Colon or Rectal Cancer age 58 FAMILY CANCER HISTORY: Sister Breast Cancer age 55, Breast Cancer age 55 Sister Breast Cancer age 55 Sister Breast Cancer age 68 Maternal Aunt Breast Cancer age 60 Paternal Aunt Breast Cancer age 60 Sister Lymphoma age 60 Brother Kidney or Bladder Cancer age 62 Niece Pancreatic Cancer age 55 FINDINGS: No suspicious masses, architectural distortions or suspiciously clustered microcalcifications are identified. There is no evidence of skin thickening or nipple retraction. There are no significant changes when compared with prior studies. No mammographic evidence of malignancy. Mammography Report Markings on images: BB's = Nipples; skin lesions Open lummi = Palpable Line = Scar 2D digital mammography and tomosynthesis imaging were performed and reviewed with CAD. ASSESSMENT: Category 1 Negative RECOMMENDATION: Routine screening mammogram of both breasts in 1 year. . Report Dictated on Cancer Risk Assessment: This risk assessment is based on patient provided information collected in a risk survey taken at the time of this examination. Lifetime breast cancer risk: Average Risk - If greater than or equal to 20%, consider annual mammogram and annual screening Breast MRI or follow up in high risk clinic. A score of Average Risk indicates a score of less than 20%. Is the patient at elevated risk based on the HBOC criteria? Yes (Hereditary Breast and Ovarian Cancer) - If yes, consider genetic counseling and testing with high risk follow up. Is the patient at elevated risk based on the Pedraza Syndrome criteria? No - If yes, consider genetic counseling and testing with high risk follow up. Final Signed Date and Time: 02/17/2022 8:16 am Signed by: MD ROSAS LAUREN B [facility] Kurt Digital Screen Constanza dia 02-17-2022 Patient Name: AUGUSTUS TARIQ Mammography ACCESSION EXAM DATE/TIME PROCEDURE ORDERING PROVIDER [id number] 02/17/2022 08:00 EDT MG Breast Tomosynthesis DO CASTILLO LISA BI Scr CPT code 37229 [id number] Reason For Exam (MG Breast Tomosynthesis BI Scr) screening Report TIME SINCE LAST MAMMOGRAM: Last mammogram was performed 1 year and 1 month ago. REASON FOR EXAM: screening, asymptomatic. PROCEDURE: MG BREAST TOMOSYNTHESIS BL SCR: FEBRUARY 17, 2022 - 2D/3D Procedure 3D Bilateral CC and MLO view(s) were taken. 2D Bilateral CC and MLO view(s) were taken. Prior study comparison: January 30, 2021, bilateral MG breast tomosynthesis bl scr performed at [facility]. September 18, 2019, bilateral MG breast tomosynthesis bl scr performed at [facility]. July 08, 2015, bilateral screening mammogram performed at [facility]. TISSUE DENSITY: BIRADS B - There are scattered fibroglandular densities. . RISK ALERT: The Cancer Risk Assessment scores below the recommendation of this report contain an outcome above the normal risk range. PATIENT CANCER HISTORY: Self Colon or Rectal Cancer age 58 FAMILY CANCER HISTORY: Sister Breast Cancer age 55, Breast Cancer age 55 Sister Breast Cancer age 55 Sister Breast Cancer age 68 Maternal Aunt Breast Cancer age 60 Paternal Aunt Breast Cancer age 60 Sister Lymphoma age 60 Brother Kidney or Bladder Cancer age 62 Niece Pancreatic Cancer age 55 FINDINGS: No suspicious masses, architectural distortions or suspiciously clustered microcalcifications are identified. There is no evidence of skin thickening or nipple retraction. There are no significant changes when compared with prior studies. No mammographic evidence of malignancy. Mammography Report Markings on images: BB's = Nipples; skin lesions Open lummi = Palpable Line = Scar 2D digital mammography and tomosynthesis imaging were performed and reviewed with CAD. ASSESSMENT: Category 1 Negative RECOMMENDATION: Routine screening mammogram of both breasts in 1 year. . Report Dictated on Cancer Risk Assessment: This risk assessment is based on patient provided information collected in a risk survey taken at the time of this examination. Lifetime breast cancer risk: Average Risk - If greater than or equal to 20%, consider annual mammogram and annual screening Breast MRI or follow up in high risk clinic. A score of Average Risk indicates a score of less than 20%. Is the patient at elevated risk based on the HBOC criteria? Yes (Hereditary Breast and Ovarian Cancer) - If yes, consider genetic counseling and testing with high risk follow up. Is the patient at elevated risk based on the Pedraza Syndrome criteria? No - If yes, consider genetic counseling and testing with high risk follow up. --- Final --- Signed Date and Time: 02/17/2022 8:16 am Signed by: MD ROSAS LAUREN B [facility] Cedric Rosas MD - 02/17/2022 Patient Name: AUGUSTUS TARIQ Mammography ACCESSION EXAM DATE/TIME PROCEDURE ORDERING PROVIDER [id number] 02/17/2022 08:00 EDT MG Breast Tomosynthesis DO CASTILLO LISA BI Scr CPT code 89844 [id number] Reason For Exam (MG Breast Tomosynthesis BI Scr) screening Report TIME SINCE LAST MAMMOGRAM: Last mammogram was performed 1 year and 1 month ago. REASON FOR EXAM: screening, asymptomatic. PROCEDURE: MG BREAST TOMOSYNTHESIS BL SCR: FEBRUARY 17, 2022 - 2D/3D Procedure 3D Bilateral CC and MLO view(s) were taken. 2D Bilateral CC and MLO view(s) were taken. Prior study comparison: January 30, 2021, bilateral MG breast tomosynthesis bl scr performed at [facility]. September 18, 2019, bilateral MG breast tomosynthesis bl scr performed at [facility]. July 08, 2015, bilateral screening mammogram performed at [facility]. TISSUE DENSITY: BIRADS B - There are scattered fibroglandular densities. . RISK ALERT: The Cancer Risk Assessment scores below the recommendation of this report contain an outcome above the normal risk range. PATIENT CANCER HISTORY: Self Colon or Rectal Cancer age 58 FAMILY CANCER HISTORY: Sister Breast Cancer age 55, Breast Cancer age 55 Sister Breast Cancer age 55 Sister Breast Cancer age 68 Maternal Aunt Breast Cancer age 60 Paternal Aunt Breast Cancer age 60 Sister Lymphoma age 60 Brother Kidney or Bladder Cancer age 62 Niece Pancreatic Cancer age 55 FINDINGS: No suspicious masses, architectural distortions or suspiciously clustered microcalcifications are identified. There is no evidence of skin thickening or nipple retraction. There are no significant changes when compared with prior studies. No mammographic evidence of malignancy. Mammography Report Markings on images: BB's = Nipples; skin lesions Open lummi = Palpable Line = Scar 2D digital mammography and tomosynthesis imaging were performed and reviewed with CAD. ASSESSMENT: Category 1 Negative RECOMMENDATION: Routine screening mammogram of both breasts in 1 year. . Report Dictated on Cancer Risk Assessment: This risk assessment is based on patient provided information collected in a risk survey taken at the time of this examination. Lifetime breast cancer risk: Average Risk - If greater than or equal to 20%, consider annual mammogram and annual screening Breast MRI or follow up in high risk clinic. A score of Average Risk indicates a score of less than 20%. Is the patient at elevated risk based on the HBOC criteria? Yes (Hereditary Breast and Ovarian Cancer) - If yes, consider genetic counseling and testing with high risk follow up. Is the patient at elevated risk based on the Pedraza Syndrome criteria? No - If yes, consider genetic counseling and testing with high risk follow up. --- Final --- Signed Date and Time: 02/17/2022 8:16 am Signed by: MD PEDRO, CEDRIC Betts [employer] Work Phone: Nate Kurt Digital Screen Bila teralOrdered By: Cedric Rosas on 02-17-2022 [employer] Work Phone: No Panel Informationon 02-17 Radiology Study observation (narrative) [employer] Work Phone: OT Bone Density DEXA Axial S keletonon 02-17-2022 OT Bone Density DEXA Axial Skeleton Patient Name: AUGUSTUS TARIQ Bone Density ACCESSION EXAM DATE/TIME PROCEDURE ORDERING PROVIDER [id number] 02/17/2022 08:19 EDT OT Bone Density DEXA ESTERLE, DO, SURI Axial Skeleton CPT code 75258 Reason For Exam (OT Bone Density DEXA Axial Skeleton) asymptomatic postmenopausal state Report DXA BONE DENSITOMETRY: CLINICAL INDICATION: Asymptomatic post-menopausal status. Screening for osteoporosis. COMPARISON: 07/08/2015 TECHNIQUE: Quantitative bone mineral densitometry of the hip and lumbar spine was performed with a dual energy x-ray observed absorptiometry device - [employer] at some institutions, [employer] at others. Regions of interest were obtained through the proximal femur and compared to the normal value of young adult women. Regions of interest were also obtained through the lumbar vertebrae with an average value determined and compared to the normal value of young adult women. The difference between your measured bone density and the bone density of a normal young woman is expressed in standard deviations as the T score. Similarly, your measured bone density is also compared to age and race matched values, and expressed in standard deviations as the Z score. According to World Health Organization criteria: T-score of -1.0 or higher is normal. T-score between -1.1 to < -2.5 is low bone density or osteopenia. T-score of -2.5 or lower is abnormally low, compatible with osteoporosis. T-score of -2.5 or less plus fragility fracture indicates severe osteoporosis. FINDINGS: Femoral neck RIGHT Density: 0.656 g/cm2 T-score: -1.7 Z-score: -0.3 Total Hip RIGHT Density: 0.761 g/cm2 T-score: -1.5 Z-score: -0.3 Comparison from prior examination: The bone demineralization has progressed significantly when compared to the baseline study of 2014. Spine: L1-L4 Density 0.896 g/cm2 T-score: -1.4 Z-score: 0.3 Comparison from prior examination: The bone demineralization has progressed Bone Density Report significantly when compared to the baseline study of 2014. IMPRESSION: 1. Osteopenia. 2. The bone demineralization has progressed significantly when compared to the baseline study of 2014. FRACTURE RISK: The estimated 10 year risk for a hip fracture is 2.6% and for a major osteoporosis-related fracture is 19%. (FRAX web version 3.11). RECOMMENDATIONS: General recommendations for prevention of bone loss include: 8389-9424 mg calcium intake per day for adults >50yrs, and no history of renal calculi 800-1000 IU of vitamin D3 per day for adults >50yrs, and no history of renal calculi Weight bearing exercise Discontinue smoking Avoid excessive use of caffeine, soft drinks, and alcoholic beverages In addition, balance training and fall prevention programs can help reduce the risk of fractures Pharmacologic treatment recommendations: Initiate pharmacologic treatment in patients with hip or vertebral fracture. In those with T scores by DXA In postmenopausal women and men age 50 or older with low bone mass (T score between -1.0 and -2.5 [osteopenia]) at the femoral neck, total hip, or lumbar spine by DXA have a 10 year hip fracture probability >/= 3% or a 10 year major osteoporosis-related fracture probability >/= 20% based on the [place]-adapted WHO fracture risk model (FRAX). Current FDA-approved pharmacologic options for osteoporosis treatment include bisphosphonates (Fosamax), ibandronate (Boniva), risedronate (Actonel), zoledronic acid (Reclast), estrogens and other hormonal therapies (Evista), parathyroid hormone (Forteo), and denosumab (Prolia). Initiation of pharmacologic therapy should happen only after thorough medical evaluation, discussion of risks and benefits, and with regular monitoring of the therapeutic regimen. Follow-up recommendations: Patients with osteoporosis or or at high risk for fracture should have follow-up bone density tests. For Medicare patients, routine testing is allowed every 2 years. Patients who have low bone mass (T score -2.0 to -2.49), who are currently on treatment for low bone mass, or having risk factors for accelerated bone loss (glucocorticoids, aromatase inhibitors, etc.), consider repeat DXA in 1-2 years. Patients with osteopenia and no risk factors may consider follow-up every 3-5 years. References: National Osteoporosis Foundation. Clinician's Guide to Prevention and Treatment of Osteoporosis. Osteoporosis International. Armstrong, 2014. DXA Scan Screening, Reporting (FRAX Score) and Follow-up. Breonna of Knowledge Evidence - based Summaries. [facility] [employer] for Education and Research 2017. Bone Density Report Report Dictated on Workstation: [employer] Final Dictating Physician: MD CLEMENT JEFFREY Signed Date and Time: 02/17/2022 4:49 pm Signed by: MD CLEMENT JEFFREY Transcribed Date and Time: 02/17/2022 4:50 Normal [facility] Absolute lymphocyte counton 02-15-2022 Lymphocytes Auto (Unsp spec) [#/Vol] 2.09 10*3/uL 0.83-4.51 [facility] Work Phone: Basophil percentageon 2021 Basophils/100 WBC (Bld) 0.8 % 0-1 [facility] Work Phone: Bilirubin [Mass/Vol] 0.40 mg/dL 0.20-1.00 [facility] Work Phone: Comment on above: For patients on eltr ombopag therapy, use of Dimension [place] TBIL is not recommended. Chloride [Moles/Vol] 108 mmol/L 98-107 [facility] Work Phone: Eosinophils/100 WBC (Bld) 4.1 % 0-5 [facility] Work Phone: Glucose [Mass/Vol] 89 mg/dL 74-106 [facility] Work Phone: Neutrophils (Bld) [#/Vol] 2.0 10*3/uL 2.0-7.7 [facility] Work Phone: [phone] Neutrophils/100 WBC (Bld) 41.9 % 47-70 [facility] Work Phone: Potassium [Moles/Vol] 3.8 mmol/L 3.5-5.1 [facility] Work Phone: Protein [Mass/Vol] 7.2 g/dL 6.4-8.2 [facility] Work Phone: [phone] Sodium [Moles/Vol] 141 mmol/L 136-145 [facility] Work Phone: WBC (Bld) [#/Vol] 4.8 10*3/uL 4.4-11.0 [facility] Work Phone: [phone] Blood erythrocytes count (nu mber/volume)on 02-15-2022 RBC (Bld) [#/Vol] 4.49 10*6/uL 4.2-5.4 [facility] Work Phone: Blood hemoglobin measurement (mass/volume)on 02-15-2022 Hemoglobin (Bld) [Mass/Vol] 13.7 g/dL 12.0-15.0 [facility] Work Phone: [phone] Blood lymphocytes/100 leukoc yteson 02-15-2022 Lymphocytes/100 WBC (Bld) 43.3 % 19-41 [facility] Work Phone: Blood monocytes/100 leukocyt eson 02-15-2022 Monocytes/100 WBC (Bld) 9.7 % 0-10 [facility] Work Phone: [phone] Blood platelet mean volumeon 02-15-2022 Platelet mean volume (Bld) [Entitic vol] 10.7 fL 6.2-12.0 [facility] Work Phone: Determination of erythrocyte mean corpuscular volume (MCV)on 02-15-2022 MCV (RBC) [Entitic vol] 93.3 fL 81-99 [facility] Work Phone: Hematocrit Auto (Bld) [Volum e fraction]on 02-15-2022 Hematocrit (Bld) [Volume fraction] 41.9 % 37-47 [facility] Work Phone: Laboratory - Chemistry and C hemistry - challengeon 02-15-2022 ALP [Catalytic activity/Vol] 58 U/L 45-117 [facility] Work Phone: ALT [Catalytic activity/Vol] 21 U/L 13-56 [facility] Work Phone: CO2 [Moles/Vol] 27.0 mmol/L 21.0-32.0 [facility] Work Phone: Globulin (S) [Mass/Vol] 3.2 g/dL 2.2-4.2 [facility] Work Phone: Urea nitrogen/Creatinine [Mass ratio] 10.5 mg/mg 10-20 [facility] Work Phone: Laboratory - Hematology and Cell countson 02-15-2022 Erythrocyte distribution width (RBC) [Entitic vol] 44.8 fL 35.1-43.9 [facility] Work Phone: Erythrocyte distribution width (RBC) [Ratio] 13.2 % 11.6-14.6 [facility] Work Phone: Immature granulocytes/100 WBC (Bld) 0.200 % 0.0-0.9 [facility] Work Phone: Comment on above: IG% - Immature Granu locytes (promyelocytes, myelocytes and metamyelocytes) > 1% indicates that a LEFT SHIFT is Present. MCH (RBC) [Entitic mass] 30.5 pg 27.0-32.0 [facility] Work Phone: [phone] Nucleated RBC/100 WBC (Bld) [Ratio] 0 % 0-5 [facility] Work Phone: MCHC Auto (RBC) [Mass/Vol]on 02-15-2022 MCHC (RBC) [Mass/Vol] 32.7 g/dL 32-36 [facility] Work Phone: No Panel Informationon 02-15 Estimated GFR (MDRD) Amer 86 mL/min >60 [facility] Work Phone: Comment on above: GFR Calc Estimated GFR (MDRD) Non-Af Amer 71 mL/min >60 [facility] Work Phone: Comment on above: Non- GFR Calc Platelets bldon 02-15-2022 Platelets (Bld) [#/Vol] 264 10*3/uL 150-450 [facility] Work Phone: Serum or plasma albumin lamine urement (mass/volume)on 02-15-2022 Albumin [Mass/Vol] 4.0 g/dL 3.2-5.0 [facility] Work Phone: Serum or plasma albumin/glob ulin mass ratioon 02-15-2022 Albumin/Globulin [Mass ratio] 1.2 {ratio} 0.9-2.4 [facility] Work Phone: Serum or plasma calcium lamine urement (mass/volume)on 02-15-2022 Calcium [Mass/Vol] 9.0 mg/dL 8.5-10.1 [facility] Work Phone: Serum or plasma creatinine m easurement (mass/volume)on 02-15-2022 Creatinine [Mass/Vol] 0.86 mg/dL 0.55-1.02 [facility] Work Phone: Comment on above: The validity of the calculated GFR & GFRAA in patients over 70 years has not been determined. Clinical correlation is essential. Serum or plasma urea nitroge n measurement (mass/volume)on 02-15-2022 Urea nitrogen [Mass/Vol] 9 mg/dL 7-18 [facility] Work Phone: Thin prep Papanicolaou smear with manual screeningon 02-15-2022 Thin prep Papanicolaou smear with manual screening 23 U/L 15-37 [facility] Work Phone: Thin prep Papanicolaou smear with manual screening 6 5-15 [facility] Work Phone: NATE KURT DIGITAL SCREEN CONSTANZA Dia 01-30-2021 Patient Name: AUGUSTUS TARIQ Mammography ACCESSION EXAM DATE/TIME PROCEDURE ORDERING PROVIDER [id number] 01/30/2021 10:52 EST MG Breast Tomosynthesis ESTERLE, DO, SURI BI Scr CPT code 64262 60782 Reason For Exam (MG Breast Tomosynthesis BI Scr) screening Report TIME SINCE LAST MAMMOGRAM: Last mammogram was performed 1 year and 4 months ago. REASON FOR EXAM: screening, asymptomatic. PROCEDURE: MG BREAST TOMOSYNTHESIS BL SCR: JANUARY 30, 2021 - 2D/3D Procedure 3D Bilateral CC and MLO view(s) were taken. 2D Bilateral CC and MLO view(s) were taken. Prior study comparison: September 18, 2019, bilateral MG breast tomosynthesis bl scr performed at [facility]. July 08, 2015, bilateral screening mammogram performed at [facility]. April 02, 2011, bilateral mammogram. TISSUE DENSITY: BIRADS B - There are scattered fibroglandular densities. . FINDINGS: No suspicious masses, architectural distortions or suspiciously clustered microcalcifications are identified. There is no evidence of skin thickening or nipple retraction. There are no significant changes when compared with prior studies. No mammographic evidence of malignancy. Markings on images: BB's = Nipples; skin lesions Open lummi = Palpable Line = Scar 2D digital mammography and tomosynthesis imaging were performed and reviewed with CAD. ASSESSMENT: Category 1 Negative RECOMMENDATION: Routine screening mammogram of both breasts in 1 year. . Mammography Report Report Dictated on --- Final --- Signed Date and Time: 01/30/2021 3:40 pm Signed by: MD VALDEZ TOM A [facility] Work Phone: [place], [facility] [place] Incoming Radiology Results From [facility] - 01/30/2021 3:50 PM EST Patient Name: AUGUSTUS TARIQ Mammography ACCESSION EXAM DATE/TIME PROCEDURE ORDERING PROVIDER [id number] 01/30/2021 10:52 EST MG Breast Tomosynthesis ESTERLE, DO, SURI BI Scr CPT code 90664 61290 Reason For Exam (MG Breast Tomosynthesis BI Scr) screening Report TIME SINCE LAST MAMMOGRAM: Last mammogram was performed 1 year and 4 months ago. REASON FOR EXAM: screening, asymptomatic. PROCEDURE: MG BREAST TOMOSYNTHESIS BL SCR: JANUARY 30, 2021 - 2D/3D Procedure 3D Bilateral CC and MLO view(s) were taken. 2D Bilateral CC and MLO view(s) were taken. Prior study comparison: September 18, 2019, bilateral MG breast tomosynthesis bl scr performed at [facility]. July 08, 2015, bilateral screening mammogram performed at [facility]. April 02, 2011, bilateral mammogram. TISSUE DENSITY: BIRADS B - There are scattered fibroglandular densities. . FINDINGS: No suspicious masses, architectural distortions or suspiciously clustered microcalcifications are identified. There is no evidence of skin thickening or nipple retraction. There are no significant changes when compared with prior studies. No mammographic evidence of malignancy. Markings on images: BB's = Nipples; skin lesions Open lummi = Palpable Line = Scar 2D digital mammography and tomosynthesis imaging were performed and reviewed with CAD. ASSESSMENT: Category 1 Negative RECOMMENDATION: Routine screening mammogram of both breasts in 1 year. . Mammography Report Report Dictated on --- Final --- Signed Date and Time: 01/30/2021 3:40 pm Signed by: MD VALDEZ TOM A [facility] Work Phone: NM HEPATOBILIARY SCAN W EJEC TION FRACTION W/ CCKon 08-28-2020 Patient Name: AUGUSTUS TARIQ ---Nuc Med--- Exam Date/Time 08/28/2020 12:31:08 EDT Exam NM Hepatobiliary Duct System Imaging Ordering Physician DO CASTILLO LISA Accession Number [id number] CPT4 Codes 49405 () Reason For Exam Epigastric pain Report HEPATOBILIARY SCAN WITH CCK CLINICAL INDICATION: Epigastric pain Following the intravenous administration of 3.4 mCi Tc-99m Choletec a hepatobiliary study was performed. Images were then acquired over the abdomen in the anterior projection for approximately one hour. Subsequently, the patient was given 1.5 mcg of CCK. Dynamic images with ALLYSON over the gallbladder was used to calculate the gallbladder ejection fraction. COMPARISON: None FINDINGS: Normal radiopharmaceutical uptake is demonstrated within the liver, with excretion into the biliary tree. Activity is demonstrated within the gallbladder within 20 minutes. Tracer also passes into the small bowel. Using ALLYSON activity, the gallbladder ejection fraction was calculated at 28 percent following CCK administration (normal above 35%). IMPRESSION: No evidence of acute cholecystitis or common bile duct obstruction. Abnormally decreased gallbladder ejection fraction following CCK administration. This can be seen with chronic cholecystitis or biliary dyskinesis. Report Dictated on --- Final --- Dictating Physician: MD BONE JONATHAN R Signed Date and Time: 08/28/2020 1:37 pm Signed by: MD BONE JONATHAN R Transcribed Date and Time: 08/28/2020 1:38 [place], [place], [facility] [place] Incoming Rad[facility] - 08/28/2020 1:38 PM EDT Patient Name: AUGUSTUS TARIQ ---Nuc Med--- Exam Date/Time 08/28/2020 12:31:08 EDT Exam NM Hepatobiliary Duct System Imaging Ordering Physician DO CASTILLO LISA Accession Number [id number] CPT4 Codes 88925 () Reason For Exam Epigastric pain Report HEPATOBILIARY SCAN WITH CCK CLINICAL INDICATION: Epigastric pain Following the intravenous administration of 3.4 mCi Tc-99m Choletec a hepatobiliary study was performed. Images were then acquired over the abdomen in the anterior projection for approximately one hour. Subsequently, the patient was given 1.5 mcg of CCK. Dynamic images with ALLYSON over the gallbladder was used to calculate the gallbladder ejection fraction. COMPARISON: None FINDINGS: Normal radiopharmaceutical uptake is demonstrated within the liver, with excretion into the biliary tree. Activity is demonstrated within the gallbladder within 20 minutes. Tracer also passes into the small bowel. Using ALLYSON activity, the gallbladder ejection fraction was calculated at 28 percent following CCK administration (normal above 35%). IMPRESSION: No evidence of acute cholecystitis or common bile duct obstruction. Abnormally decreased gallbladder ejection fraction following CCK administration. This can be seen with chronic cholecystitis or biliary dyskinesis. Report Dictated on --- Final --- Dictating Physician: MD BONE JONATHAN R Signed Date and Time: 08/28/2020 1:37 pm Signed by: MD BONE JONATHAN R Transcribed Date and Time: 08/28/2020 1:38 [place] US ABDOMEN LIMITEDon Patient Name: AUGUSTUS TARIQ ---Ultrasound--- Exam Date/Time 08/07/2020 08:20:00 EDT Exam US Abdomen Limited Ordering Physician DO CASTILLO LISA Accession Number [id number] CPT4 Codes 33461 () Reason For Exam epigastric pain Report RIGHT UPPER QUADRANT ABDOMINAL SONOGRAM History: Abdominal pain Findings: Sonogram directed to the right upper quadrant of the abdomen shows mild increased liver echogenicity suggesting fatty infiltration. The visualized upper IVC is unremarkable. The gallbladder is partially contracted without gallstones or pericholecystic fluid.. There is no bile duct dilatation. The common bile duct measures 3.8 mm in diameter. . There are degrading bowel gas artifacts with suboptimal visualization of the pancreas that appears unremarkable as shown. The partially visualized right kidney measures 11.1 x 5 x 4.4 cm without hydronephrosis. IMPRESSION: Fatty liver. Partially contracted gallbladder without gallstones. Report Dictated on --- Final --- Dictating Physician: MD JOHNSON AHMAD Signed Date and Time: 08/07/2020 8:39 am Signed by: MD JOHNSON AHMAD Transcribed Date and Time: 08/07/2020 8:40 [place], [place], [facility] Incoming Radiology [facility] - 08/07/2020 8:40 AM EDT Patient Name: AUGUSTUS TARIQ ---Ultrasound--- Exam Date/Time 08/07/2020 08:20:00 EDT Exam US Abdomen Limited Ordering Physician DO CASTILLO LISA Accession Number [id number] CPT4 Codes 10560 () Reason For Exam epigastric pain Report RIGHT UPPER QUADRANT ABDOMINAL SONOGRAM History: Abdominal pain Findings: Sonogram directed to the right upper quadrant of the abdomen shows mild increased liver echogenicity suggesting fatty infiltration. The visualized upper IVC is unremarkable. The gallbladder is partially contracted without gallstones or pericholecystic fluid.. There is no bile duct dilatation. The common bile duct measures 3.8 mm in diameter. . There are degrading bowel gas artifacts with suboptimal visualization of the pancreas that appears unremarkable as shown. The partially visualized right kidney measures 11.1 x 5 x 4.4 cm without hydronephrosis. IMPRESSION: Fatty liver. Partially contracted gallbladder without gallstones. Report Dictated on --- Final --- Dictating Physician: MD JOHNSON AHMAD Signed Date and Time: 08/07/2020 8:39 am Signed by: MD JOHNSON AHMAD Transcribed Date and Time: 08/07/2020 8:40 [place] Vital Signs Date Time Vital Sign Value Performing Clinician Yanethi mercy 08-28-2020 10:52-0400 BMI (Body Mass Index) 26.47 kg/m2 [place], [place] 08-28-2020 10:52-0400 Body weight 74.39 kg [place], [place] 08-28-2020 10:52-0400 Height 167.6 cm [place], [place] Encounters Encounter Date Encounter Type Care Provider Facility Start: 06-03-2025 End: 06-03-[address] Gaetano Tilley MD Work Phone: -[facility] [place] Start: 06-03-2025 End: 06-03-2025 Patient encounter procedure [facility] Work Phone: Start: 06-03-2025 End: 06-03-2025 ambulatory Gaetano Tilley Facility:[facility] Start: 05-24-2025 End: 05-24-[address] Gaetano Tilley MD Work Phone: -[facility] [place] Start: 05-24-2025 End: 05-24-[address] Sara Matute MD -[facility] [place] Work Phone: Start: 05-24-2025 End: 05-24-2025 [facility] Start: 02-26-2025 End: 02-26-[address] Gaetano Tilley MD Work Phone: [facility] Work Phone: Start: 02-26-2025 End: 02-26-[address] Sara Matute [facility] -[facility] Work Phone: Start: 02-26-2025 End: 02-26-20[facility] Start: 01-30-2025 End: 01-30-[address] Gaetano Tilley MD Work Phone: [facility] Work Phone: Start: 01-30-2025 End: 01-30-[address] Gaetano Tilley MD -[facility] Work Phone: Start: 01-30-2025 End: 01-30-2025 ambulatory Gaetano Tilley Facility:[facility] Start: 01-22-2025 End: 01-22-[address] Gaetano Tilley MD Work Phone: [facility] Work Phone: Start: 01-22-2025 End: 01-22-[address] [facility] Start: 01-22-2025 End: 01-22-2025 ambulatory Gaetano Tilley Facility:[facility] Start: 12-27-2024 End: 12-27-[address] [facility] Start: 12-27-2024 End: 12-27-2024 ambulatory Gaetano Tilley Facility:[facility] Start: 10-08-2024 End: 10-08-[address] [facility] Work [facility]: Start: 10-08-2024 End: 10-08-[facility] Start: 07-09-2024 End: 07-09-2024 [facility] Start: 06-29-2024 End: 06-29-2024 ambulatory [facility] Al[facility] Facility:[facility] Start: 06-15-2024 End: 06-15-2024 ambulatory Gaetano Tilley Facility:[facility] Start: 03-15-2024 End: 03-15-2024 ambulatory [facility] Work Phone: Start: 03-15-2024 End: 03-15-2024 Patient encounter procedure [facility] Work Phone: Start: 03-08-2024 End: 03-08-2024 ambulatory [facility] Work Phone: Start: 03-08-2024 End: 03-08-2024 Patient encounter procedure [facility] Start: 02-24-2024 End: 02-24-2024 ambulatory [facility] Work Phone: Start: 02-24-2024 End: 02-24-2024 Patient encounter procedure [facility] Work Phone: Start: 01-26-2024 End: 01-26-2024 ambulatory [facility] Work Phone: Start: 01-26-2024 End: 01-26-2024 [facility] Work [facility]: Start: 12-13-2023 End: 12-13-2023 ambulatory [facility] Work Phone: Start: 12-13-2023 End: 12-13-2023 [facility] Start: 11-25-2023 End: 11-25-2023 Patient encounter procedure [facility] Work Phone: Start: 08-24-2023 End: 08-24-2023 ambulatory [facility] Work Phone: Start: 08-24-2023 End: 08-24-2023 Patient encounter procedure [facility] Work Phone: Start: 06-20-2023 End: 06-20-2023 ambulatory [facility] Work Phone: Start: 06-20-2023 End: 06-20-2023 Patient encounter procedure [facility]patient [facility] Work Phone: Start: 06-16-2023 End: 06-16-2023 ambulatory [facility] Work Phone: Start: 06-16-2023 End: 06-16-2023 Discharged Recurring [facility]-Physical Therapy Work Phone: Start: 06-16-2023 Registered Recurring [facility] Work Phone: Start: 04-27-2023 End: 04-27-2023 Patient encounter procedure [facility] Start: 04-22-2023 End: 04-22-2023 ambulatory [facility] Work Phone: Start: 04-22-2023 End: 04-22-2023 Patient encounter procedure [facility] Start: 04-15-2023 End: 04-15-2023 ambulatory [facility] Work Phone: Start: 04-15-2023 End: 04-15-2023 Patient encounter procedure [facility] Start: 01-31-2023 End: 01-31-2023 ambulatory [facility] Work Phone: Start: 01-31-2023 End: 01-31-2023 Patient encounter procedure [facility] Start: 12-10-2022 End: 12-10-2022 ambulatory [facility] Work Phone: Start: 12-10-2022 End: 12-10-2022 Patient encounter procedure [facility] Start: 11-04-2022 End: 11-04-2022 ambulatory [facility] Work Phone: Start: 11-04-2022 End: 11-04-2022 Patient encounter procedure [facility] Start: 08-09-2022 End: 08-09-2022 Patient encounter procedure [facility] Start: 05-17-2022 End: 05-17-2022 Patient encounter procedure [facility] Start: 02-17-2022 End: 02-17-2022 Subsequent hospital visit by physician Suri Castillo DO Work Phone: [facility] Comment on above: Arrived Start: 02-15-2022 End: 02-15-2022 Patient encounter procedure [facility] Start: 01-30-2021 End: 01-30-2021 Subsequent hospital visit by physician Suri Castillo Work Phone: [facility] Comment on above: Arrived Start: 08-28-2020 End: 08-28-2020 Subsequent hospital visit by physician Suri Castillo Work Phone: [facility] Comment on above: Arrived Start: 08-07-2020 End: 08-07-2020 Subsequent hospital visit by physician Suri Castillo Work Phone: [facility] CARDOZA Comment on above: Arrived Start: 09-18-2019 End: 09-18-2019 Subsequent hospital visit by physician Suri Castillo Work Phone: [facility] Comment on above: Arrived Procedures Date Procedure Procedure Detail Performing Clinician Start: 06-03-2025 X-ray of lumbosacral spine Dr. Gaetano Tilley MD Work Phone: Start: 03-15-2024 X-ray of cervical spine Start: 01-26-2024 Radiography of thora cic spine Start: 06-20-2023 Screening mammography Start: 04-15-2023 MRI of brain with contrast Start: 02-17-2022 Dxa bone density xavier dy 1/> sites axial skel Suri Castillo DO Work Phone: Start: 02-17-2022 Screening digital br east tomosynthesis bi Suri Castillo DO Work Phone: Start: 01-30-2021 Screening digital br east tomosynthesis bi Suri Castillo Work Phone: Start: 08-28-2020 Hepatobil syst imag inc gb w/pharma intervenj Suri Castillo Work Phone: Start: 08-07-2020 Us abdominal real ti me w/image limited Suri Castillo Work Phone: Plan of Treatment Date Care Activity Detail Author Start: 01-30-2023 Screening for malign ant neoplasm of breast Breast cancer screen [facility] Start: 09-18-2021 Screening for malign ant neoplasm of breast Breast cancer screen [place], [place] Start: 07-29-2021 Influenza vaccination Flu vaccine (# 1) [facility] Start: 07-29-2020 Influenza vaccination Flu vaccine (# 1) [place], [place] Start: 07-29-2019 Influenza vaccination Flu vaccine (# 1) [place] Start: 07-08-2017 Breast cancer screen Breast cancer s creen [place], [place] Start: 2007 Colon cancer screen colonoscopy Colon cancer screen colonoscopy [place], [place] Start: 2007 Screening for malign ant neoplasm of colon Colon cancer screen colonoscopy [place] Start: 2007 Shingles Vaccine (1 of 2) Pulliam gles Vaccine (1 of 2) [facility] Start: 2002 Screening for malign ant neoplasm of colon [facility] Start: 1997 Diabetes screen Diabetes screen [place], [place] Start: 1997 Lipid panel Lipid screen [facility] Start: 1997 Lipid screen Lipid screen [place], [place] Start: 1987 Screening for malign ant neoplasm of cervix [facility] Start: 1978 Cervical cancer screen Cervical canc er screen [place], [place] Start: 1978 Screening for malign ant neoplasm of cervix [facility] Start: 1976 DTaP/Tdap/Td vaccine (1 - Tdap) DTaP/Tdap/Td vaccine (1 - Tdap) [facility] Start: 1973 COVID-19 Vaccine (1 of 2) COVI D-19 Vaccine (1 of 2) [facility] Work Phone: Start: 1972 HIV screen HIV screen [place], [place] Start: 1972 HIV screening HIV screen [facility] Start: 1969 Depression Screen Depression Screen [facility] Start: 1962 COVID-19 Vaccine (1) COVID-19 Vaccin e (1) [facility] Start: 1957 Hepatitis C screen Hepatitis C scree n [place], [place] Start: 1957 Hepatitis C screening Hepatitis C sc reen [facility] End: 09-18-2019 Screening digital breast tomosynthesis bi Nate Kurt Digital Screen Bilateral Imaging Routine Once for 1 Occurrences starting 09/18/2019 until 09/18/2019 [place], [place] Comment on above: Once for 1 Occurrenc es starting 09/18/2019 until 09/18/2019 Screening digital br east tomosynthesis bi Nate Kurt Digital Screen Bilateral Imaging Routine 09/18/2019 11:41 AM EDT [place], [place] Payers Date Payer Category Payer Medicare [id number] 2024 Self-pay [id number] 2024 Unknown [id number] 2016 Unknown [id number] Medicare [id number] Private Health Insurance [facility] [id number] Unknown [id number] 2.16.8 [id number] Unknown [id number] 2.16.8 [id number] Unknown [id number] 2.16.8 [id number] Unknown [id number] 2.16.8 [id number] Unknown [id number] 2.16.8 [id number] Unknown [id number] 2.16.8 [id number] Unknown [id number] 2.16.8 [id number] Unknown [id number] 2.16.8 [id number] Unknown [id number] 2.16.8 [id number] Unknown [id number] 2.16.8 [id number] Social History Date Type Detail Facility Tobacco smoking status NHIS Unknown if ever smoked [place], [place] Start: 1955 Sex Assigned At Not on file [place] Start: 11-09-2021 End: 11-09-2021 Tobacco smoking status NHIS Tobacco smoking consumption unknown [facility] Start: 10-15-2020 [facility] Start: 1955 Sex Assigned At Female [facility] Start: 11-09-2021 Tobacco smoking status NHIS Never smoked tobacco (finding) [facility] Start: 02-05-2025 End: 03-02-2025 Sex Female (finding) [facility] Radiology Diagnostic study note 06-03-2025 Note Date & Type Note Facility 06-03-2025 Radiology Diagnostic study note [facility] Imaging Services [address] [place] [address] L/S Spine Min 4 Views MR#: [id number] Acct: [id number] Name: AUGUSTUS TARIQ Rep #: [id number] : 1955 F 69 From: Liban Paul DO PCP: Dr. Gaetano Tilley MD Status: RE G CLI Study:L/S Spine Min 4 Views Date of Exam: 06/03/25 Exam# [id number] Ordering Dr: Mercedes Crow PROCEDURE: L/S SPINE MIN 4 VIEWS 06/03/2025 REASON FOR EXAM: LUMBAR SPINE PAIN/ DDD TECHNIQUE: L/S SPINE MIN 4 VIEWS COMPARISON: None FINDINGS: Five views of the lumbar spine and sacrum were obtained and demonstrate 5 lumbar-type vertebral bodies below the last set of paired ribs. There appears to be mild diffuse osteopenia of the osseous structures of the lumbar spine and sacrum. The vertebral body alignment is within normal limits. There is no spondylolisthesis. There is a slight decrease in height of the L5 vertebral body by approximately 3-5%. This may be related to an osteoporotic compression fracture. The age of which is indeterminate. The remaining vertebral body heights are within normal limits. Degenerative disc disease is seen involving all levels. This is most pronouncedat the L5-S1 level. There is some bony encroachment on the neural foramina at this level. There are no fractures of the sacrum. Mild arthritic changes of the right hip are noted. The visualized prosthetic left hip device appears to be in satisfactory positionwithout evidence of fracture or loosening. Please note however that the entire device is not included on this study. 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 RAD/L/S Spine Min 4 Views IMPRESSION: Diffuse osteopenia of the osseous structures of the lumbar spine and sacrum. Decrease in height of the L5 vertebral body by approximately 3-5%. Degenerative disc disease involving all lumbar discs. This is most pronounced at the L5-S1 level. RECOMMENDATION: The patient may benefit by having an MRI of the lumbar spine for further evaluation of the disc spaces and nerve roots if clinically warranted. This could also further evaluate the slight decrease in height of the L5 vertebral body. Reading Location: [id number] CC: Mercedes Crow; Dr. 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 ACP-Advance Directive ACP-Power of School Counselor Documents on File Type Date 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 Advance Directives and Living Will Power of School Counselor Advance Directive Response Recorded Date/ Time Living Will No November 09, 021 2:05am Power of School Counselor No November 09, 2021 2:05am Advance Directive Response Recorded Date/ Time Living Will No November 09, 021 1:05am Power of School Counselor No November 09, 2021 1:05am Summary Purpose Family History No Family History Records Found Relationship Condition Age at Onset Recorded Date/T dayna Not Specified Malignant neoplasm Unknown Chief Complaint and Reason for Visit Chief Complaint STANDING ORDER STANDING ORDER Chief Complaint S/O- COPY PCP S/O- PAIN COPY PCP Chief Complaint S/O- PAIN COPY PCP Chief Complaint S/O- PAIN COPY PCP STANDING ORDER Chief Complaint STANDING ORDER TINNITIS, ATTN: IAC STANDING ORDER Chief Complaint TINNITIS, ATTN: IAC STANDING ORDER LUMBAR RADICULOPATHY / RX HERE SCREENING Chief Complaint LUMBAR RADICULOPATHY / RX HERE SCREENING STANDING ORDER Chief Complaint STANDING ORDER S/O- PAIN - COPY PCP Chief Complaint S/O- PAIN - COPY PCP THORACIC SPINE Chief Complaint S/O- PAIN - COPY PCP THORACIC SPINE S/O- PAIN- COPY PCP Chief Complaint S/O- PAIN - COPY PCP THORACIC SPINE S/O- PAIN- COPY PCP CERVICAL SPINE Chief Complaint Admit Date EORDER FROM DR TILLEY ALSO October 082023 9:53am Chief Complaint Admit Date S/O- PAIN- COPY PCP May 24, 2025 11:2 3am Chief Complaint Admit Date S/O- PAIN- COPY PCP May 24, 2025 11:2 3am LUMBAR SPINE PAIN/ DDD June 03, 2025 8: 49am Additional Source Comments Care Teams (unrecognized sec tion and content) Keno Writer / Runner Relationship Specialty Start Date End Date Suri Castillo, DO [address] [place] [address] PCP - General 09/14/19 Team Status: Active Member Role Status Dates Dr. Talat Jimenez MD Family Provider Active Dr. Gaetano Tilley MD Primary Care Provider Active Team Status: Inactive Member Role Status Dates Dr. Gaetano Tilley MD Primary Care Provider Active Dr. Sara Matute MD Attending Provider, Referring Provider Active Team Status: Inactive Member Role Status Dates Dr. Gaetano Tilley MD Primary Care Provider, Attend ing Provider Active Team Status: Inactive Member Role Status Dates Dr. Gaetano Tilley MD Primary Care Provider Active Dr. Ignacio Nova MD Attending Provider, Referring Pr ovider Active Team Status: Active Member Role Status Dates Dr. Gaetano Tilley MD Primary Care Provider, Attend ing Provider Active Team Status: Active Member Role Status Dates Dr. Gaetano Tilley MD Primary Care Provider Active Dr. Sara Matute MD Attending Provider, Referring Provider Active Team Status: Inactive Member Role Status Dates Dr. Gaetano Tilley MD Primary Care Pr ovider, Attending Provider, Referring Provider Active Team Status: Active Member Role Status Dates Dr. Gaetano Tilley MD Primary Care Provider Active Varun RODAS PA-C Attending Provider, Referring Pr ovider Active Team Status: Inactive Member Role Status Dates Dr. Gaetano Tilley MD Primary Care Provider Active Varun RODAS PA-C Attending Provider, Referring Pr ovider Active Team Status: Inactive Member Role Status Dates Dr. Gaetano Tilley MD Primary Care Provider Active Dr. Minesh Peter MD Attending Provider, Referring Provider Active Team Status: Inactive Member Role Status Dates Dr. Gaetano Tilley MD Primary Care Provider Active SOFTWARE COMPUTER SPECIALIST. Mercedes Crow Attending Provider, Referring Provid er Active Team Status: Active Member Role Status Dates Dr. Gaetano Tilley MD Primary Care Provider Active Team Status: Inactive Member Role Status Dates Dr. Gaetano Tilley MD Primary Care Provider Active Start: October 08, 2024 End: October 08, 2024 Dr. Sara Matute MD Attending Provider Active Start: October 08, 2024 End: October 08, 2024 Dr. Sara Matute MD Referring Provider Active Start: October 08, 2024 End: October 08, 2024 Team Status: Inactive Member Role Status Dates Dr. Gaetano Tilley MD Primary Care Provider Active Start: December 27, 2024 End: December 27, 2024 Dr. Sara Matute MD Attending Provider Active Start: December 27, 2024 End: December 27, 2024 Dr. Sara Matute MD Referring Provider Active Start: December 27, 2024 End: December 27, 2024 Team Status: Inactive Member Role Status Dates Dr. Gaetano Tilley MD Primary Care Provider Active Start: January 22, 2025 End: January 22, 2025 Dr. Gaetano Tilley MD Attending Provider Active Start: January 22, 2025 End: January 22, 2025 Dr. Gaetano Tilley MD Referring Provider Active Start: January 22, 2025 End: January 22, 2025 Team Status: Active Member Role Status Dates Dr. Gaetano Tilley MD Primary Care Provider Active Start: January 30, 2025 Dr. Gaetano Tilley MD Attending Provider Active Start: January 30, 2025 Dr. Gaetano Tilley MD Referring Provider Active Start: January 30, 2025 Team Status: Inactive Member Role Status Dates Dr. Gaetano Tilley MD Primary Care Provider Active Start: January 30, 2025 End: January 30, 2025 Dr. Gaetano Tilley MD Attending Provider Active Start: January 30, 2025 End: January 30, 2025 Dr. Gaetano Tilley MD Referring Provider Active Start: January 30, 2025 End: January 30, 2025 Team Status: Inactive Member Role Status Dates Dr. Gaetano Tilley MD Primary Care Provider Active Start: February 26, 2025 End: February 26, 2025 Dr. Sara Matute MD Attending Provider Active Start: February 26, 2025 End: February 26, 2025 Dr. Sara Matute MD Referring Provider Active Start: February 26, 2025 End: February 26, 2025 Team Status: Active Member Role/Relationship Status Dates Dr. Gaetano Tilley MD Primary Care Provider Active Team Status: Inactive Member Role/Relationship Status Dates Dr. Gaetano Tilley MD Primary Care Provider Active Start: January 30, 2025 End: January 30, 2025 Dr. Gaetano Tilley MD Attending Provider Active Start: January 30, 2025 End: January 30, 2025 Dr. Gaetano Tilley MD Referring Provider Active Start: January 30, 2025 End: January 30, 2025 Team Status: Inactive Member Role/Relationship Status Dates Dr. Gaetano Tilley MD Primary Care Provider Active Start: February 26, 2025 End: February 26, 2025 Dr. Sara Matute MD Attending Provider Active Start: February 26, 2025 End: February 26, 2025 Dr. Sara Matute MD Referring Provider Active Start: February 26, 2025 End: February 26, 2025 Team Status: Inactive Member Role/Relationship Status Dates Dr. Gaetano Tilley MD Primary Care Provider Active Start: May 24, 2025 End: May 24, 2025 Dr. Sara Matute MD Attending Provider Active Start: May 24, 2025 End: May 24, 2025 Dr. Sara Matute MD Referring Provider Active Start: May 24, 2025 End: May 24, 2025 Team Status: Inactive Member Role/Relationship Status Dates Dr. Gaetano Tilley MD Primary Care Provider Active Start: February 26, 2025 End: February 26, 2025 Dr. Sara Matute MD Attending Provider Active Start: February 26, 2025 End: February 26, 2025 Dr. Sara Matute MD Referring Provider Active Start: February 26, 2025 End: February 26, 2025 Team Status: Inactive Member Role/Relationship Status Dates Dr. Gaetano Tilley MD Primary Care Provider Active Start: May 24, 2025 End: May 24, 2025 Dr. Sara Matute MD Attending Provider Active Start: May 24, 2025 End: May 24, 2025 Dr. Sara Matute MD Referring Provider Active Start: May 24, 2025 End: May 24, 2025 Team Status: Inactive Member Role/Relationship Status Dates Dr. Gaetano Tilley MD Primary Care Provider Active Start: June 03, 2025 End: June 03, 2025 SOFTWARE COMPUTER SPECIALIST. Mercedes Crow Attending Provider Active Star t: June 03, 2025 End: June 03, 2025 SOFTWARE COMPUTER SPECIALIST. Mercedes Crow Referring Provider Active Star t: June 03, 2025 End: June 03, 2025 INFORMATION SOURCE (unrecogn ized section and content) DATE CREATED AUTHOR 02/18/2022 [employer] [facility] [employer] DATE CREATED AUTHOR AUTHOR'S ORGANIZ ATION 06/11/2025 [facility] Goals (unrecognized section and content) Goals may be documented in a n alternate sectionGoals may be documented in an alternate sectionGoals may be documented in an alternate sectionGoals may be documented in an alternate sectionGoals may be documented in an alternate sectionGoals may be documented in an alternate sectionGoals may be documented in an alternate sectionGoals may be documented in an alternate sectionGoals may be documented in an alternate sectionGoals may be documented in an alternate sectionGoals may be documented in an alternate sectionGoals may be documented in an alternate sectionGoals may be documented in an alternate sectionGoals may be documented in an alternate sectionGoals may be documented in an alternate sectionGoals may be documented in an alternate sectionGoals may be documented in an alternate sectionGoals may be documented in an alternate sectionGoals may be documented in an alternate section FOR RECORDS PERTAINING TO PATIENTS WHO ARE [...] BE BASED ON THE PRIMARY CLINICAL RECORDS. [facility]. provides no warranty or guarantee of the accuracy or completeness of information in this document.
--- NOTE | 2025-07-29 14:28 | STRESSREP ---
Stress Test Report Pharmacologic myocardial perfusion stress test. 69-year-old lady with a history of abnormal EKG. Resting EKG demonstrates normal sinus rhythm with a rate of 62 bpm. Resting blood pressure is 124/70 mmHg. 0.4 mg of regadenoson was infused per usual protocol followed by rapid intravenous saline flush injection. Continuous EKG monitoring was performed. The maximum heart rate was 80 bpm which was 52% of max impacted heart rate the maximum workload was 1 metabolic equivalent. At rest there were no ST or T wave changes noted to suggest ischemia and at peak infusion nonspecific ST changes were noted which did not meet the criteria for ischemia. No clinical angina is noted. The final blood pressure was 118/72 mmHg. Myocardial perfusion protocol. 12 mCi of technetium 99m sestamibi was injected at rest. 0.4 mg of regadenoson was infused per usual protocol. At peak infusion 36 mCi of technetium 99m sestamibi was injected stress images were obtained stress and rest images were reconstructed and compared in the short axis vertical long and horizontal long axis. Gated images were also obtained. Perfusion SPECT analysis: Review of the stress images demonstrate normal uptake of tracer noted in all areas of the myocardium. The resting images similar demonstrated normal uptake of tracer noted in all areas of the myocardium. No areas of reversibility are noted to suggest ischemia and no previous infarct is noted. Gated SPECT analysis: The gated ejection fraction is 62%. Conclusion: Normal pharmacologic myocardial perfusion stress test. Preserved ejection fraction.
== END | disposition home or self-care (01) ==
PROVIDERS: PCP Family Medicine; Referring Provider Family Medicine; Visit Provider Family Medicine
DX: R07.9 Chest pain, unspecified (principal)
CPT/HCPCS: 78452; 93017; A9500; A4216; J2785

== ENCOUNTER → 2025-08-13 | Outpatient (CLI) | payer MEDICARE, OTHER, SELFPAY ==
[2025-08-13 15:27] LABS: Hematocrit 40.2 % (37-47); Hemoglobin 13.2 g/dL (12.0-15.0); Immature Granulocytes Count 0.010 X10^3/uL (0.0-0.0); Mean Corp Hgb Conc 32.8 g/dL (32-36); Mean Corpuscular Volume 99.3 fL (81-99); Mean Platelet Vol. 10.2 fl (6.2-12.0); NRBC Flagged by Analyzer 0 % (0-5); Platelet Count 250 K/mm3 (150-450); RBC Distribution Width CV 13.6 % (11.6-14.6); RBC Distribution Width SD 49.6 fl (35.1-43.9); Red Blood Count 4.05 M/mm3 (4.2-5.4); White Blood Count 4.6 K/mm3 (4.4-11.0)
[2025-08-13 16:03] LABS: AST(SGOT) 24 U/L (<=31); Alanine Aminotransfer ALT/SGPT 17 U/L (<=34); Albumin, Serum 4.3 g/dL (3.4-4.8); Alkaline Phosphatase 47 U/L (35-104); Anion Gap 13 (5-15); BUN 9 mg/dL (4-19); BUN/Creat Ratio 13.7 RATIO (10-20); Calcium,Total 9.5 mg/dL (7.6-11.0); Carbon Dioxide 22.4 mmol/L (21.0-32.0); Chloride 104 mmol/L (98-108); Globulin 2.3 g/dL (2.2-4.2); Glucose 111 mg/dL (70-99); Potassium 3.9 mmol/L (3.3-5.1)
== END | disposition home or self-care (01) ==
LOC: MTLAB 12:35
PROVIDERS: PCP Family Medicine; Referring Provider Internal Medicine Rheumatology; Visit Provider Internal Medicine Rheumatology
DX: M06.4 Inflammatory polyarthropathy (principal); Z79.899 Other long term (current) drug therapy; M79.7 Fibromyalgia; M15.9 Polyosteoarthritis, unspecified
CPT/HCPCS: 36415; 80053; 85025

== ENCOUNTER → 2025-09-04 | Outpatient (CLI) | payer MEDICARE, OTHER, SELFPAY ==
[2025-09-04 12:12] LABS: CRP < 3.00 mg/L (0.0-3.0)
== END | disposition home or self-care (01) ==
LOC: MTLAB 09:13
PROVIDERS: PCP Family Medicine; Referring Provider Internal Medicine Pulmonary Disease; Visit Provider Internal Medicine Pulmonary Disease
DX: R06.00 Dyspnea, unspecified (principal)
CPT/HCPCS: 36415; 85652; 86140

== ENCOUNTER → 2025-09-21 | Outpatient (CLI) | payer MEDICARE, OTHER, SELFPAY ==
--- OUTSIDE RECORDS SUMMARY | 2025-09-21 08:06 | XMS RPT_ITS | CCD ---
Author Organization [facility] CliniSywy Care Team Providers Care Mirror Machine Feeder Name Role Phone Suri Castillo Primary Care Provider Alison WEST, Dr. Gaetano Murray Primary Care Provider Juju WEST, Dr. Ruiz Attending Provider Juju WEST, Dr. Ruiz Referring Provider Alison WEST, Dr. Gaetano Murray Attending Provider Alison WEST, Dr. Gaetano Murray Referring Provider [phone] Alison WEST, Dr. Gaetano Murray Primary Care Provider Juju WEST, Dr. Ruiz Attending Provider Juju WEST, Dr. Ruiz Referring Provider Alison WEST, Dr. Gaetano Murray Primary Care Provider Alison WEST, Dr. Gaetano Murray Attending Provider [phone] Alison WEST, Dr. Gaetano Murray Referring Provider Juju WEST, Dr. Ruiz Attending Provider Juju WEST, Dr. Ruiz Referring Provider Alison WEST, Dr. Gaetano Murray Primary Care Provider NP. Mercedes Crow Attending Provider NP. Mercedes Crow Referring Provider [phone] Dr. Gaetano Tilley MD Primary Care Provider [phone] Juju WEST, Dr. Ruiz Attending Provider Juju WEST, Dr. Ruiz Referring Provider Alison WEST, Dr. Gaetano Murray Attending Provider Dr. Gaetano Tilley MD Referring Provider Alison WEST, Dr. Gaetano Murray Other Provider [phone] Rachana WEST, Dr. Griffin Attending Provider Alison WEST, Dr. Gaetano Murray Primary Care Physician Juju WEST, Dr. Ruiz Attending Physician NP. Mercedes Crow Attending Physician [phone] Alison WEST, Dr. Gaetano Murray Attending Physician lAison WEST, Dr. Gaetano Murray Nurse Practitioner [phone] Rachana WEST, Dr. Griffin Attending Physician Gaetano Tilley Primary Care Unavailable Vellanki, Sara Referring Unavailable Vellanki, Sara Attending Unavailable Gaetano Tilley Primary Care Unavailable Vellanki, Sara Attending Unavailable Vellanki, Sara Referring Unavailable Gaetano Tilley Primary Care Unavailable Vellanki, Sara Attending Unavailable Vellanki, Sara Referring Unavailable SchGaetano wilkerson Primary Care Unavailable Sibilia, Wisam V Attending Unavailable Sibilia, Wisam V Referring Unavailable SchGaetano wilkerson Primary Care Unavailable Sibross, Wisam V Attending Unavailable Sibilia, Wisam V Referring Unavailable Elias Reich Attending Unavailable Gaetano Tilley E Primary Care Unavailable Gaetano Tilley Consulting Unavailable Gaetano Tilley Referring Unavailable SchGaetano wilkerson Primary Care Unavailable SchGaetano wilkerson Attending Unavailable SchGaetano wilkerson Referring Unavailable SchGaetano wilkerson Primary Care Unavailable Vellanki, Sara Referring Unavailable Vellanki, Sara Attending Unavailable Gateano Tilley Primary Care Unavailable Mercedes Crow Attending Unavailable Mercedes Crow Referring Unavailable SchGaetano wilkerson Primary Care Unavailable Gaetano Tilley Attending Unavailable Gaetano Tilley Referring Unavailable SchGaetano wilkerson Primary Care Unavailable SchGaetano wilkerson Attending Unavailable SchGaetano wilkerson Referring Unavailable SchGaetano wilkerson Primary Care Unavailable SchGaetano wilkerson Attending Unavailable Gaetano Tilley Referring Unavailable SchGaetano wilkerson Primary Care Unavailable Vellanki, Sara Referring Unavailable Mooklanki, Sara Attending Unavailable Medications Current Medications Medication Drug Class(es) Dates Sig (Normalized) Sig (Original) acetaminophen 325 mg / HYDROcodone bitartrate 5 mg oral tablet (20 sources) Opioid Agonist Start: 11-08-2021 Start: 11-08-2021 take 1 tablet by nataliia th three times daily Hydrocodone-Acetaminophen Active 5 - 325 TABLET PO THREE TIMES A DAY November 08, 2021 1:00am dicyclomine hydrochloride 10 mg oral capsule (20 sources) Anticholinergic Start: 11-08-2021 take 1 capsule by mouth three times daily escitalopram 10 mg oral tablet (20 sources) Serotonin Reuptake Inhibitor Start: 11-08-2021 take 1 tablet by mouth once daily folic acid 1 mg oral tablet (20 sources) Start: 11-08-2021 take 1 tablet by mouth once daily gabapentin 100 mg oral capsule (20 sources) Anti-epileptic Agent Start: 11-08-2021 take 1 capsule by mouth three times daily levothyroxine sodium 0.05 mg oral tablet (20 sources) l-Thyroxine Start: 11-08-2021 take 1 tablet by mouth once daily methotrexate 2.5 mg oral tablet (20 sources) Folate Analog Metabolic Inhibitor Start: 11-08-2021 Start: 11-08-2021 take 20 mg by mouth every week Methotrexate Sodium Active 20 MG PO ONE TIME November 08, 2021 1:00am weekly predniSONE 10 mg oral tablet (20 sources) Start: 11-08-2021 sulfaSALAzine 500 mg oral tablet (20 sources) Aminosalicylate Start: 11-08-2021 take 1 tablet by mouth three times daily Problems Problem Classification Problem Date Documented Date Episodic/Chronic Essential hypertension (1 source) Essential (primary) hypertension; Translations: [Essential (primary) hypertension] Onset: 02-05-2025 Chronic Fracture of lower limb (20 sources) Closed fracture of ankle; Translations: [Other fracture of right lower leg, initial encounter for closed fracture] 10-16-2020 Episodic Nonspecific chest pain (1 source) Chest pain, unspecified; Translations: [Chest pain, unspecified] Onset: 08-21-2025 Episodic Other lower respiratory disease (1 source) Dyspnea, unspecified; Translations: [Dyspnea, unspecified] Onset: 09-10-2025 Episodic Other screening for suspected conditions (not mental disorders or infectious disease) (2 sources) Abnormal electrocardiogram [ECG] [EKG]; Translations: [Abnormal results of kidney function studies] Onset: 02-11-2025 Episodic Respiratory failure; insufficiency; arrest (adult) (20 sources) Acute respiratory failure; Translations: [Acute respiratory failure with hypoxia] 12-01-2021 Episodic Rheumatoid arthritis and related disease (20 sources) Rheumatoid arthritis; Translations: [Rheumatoid arthritis, unspecified] Onset: 08-20-2025 12-30-2021 Chronic Thyroid disorders (1 source) Other specified hypothyroidism; Translations: [Other specified hypothyroidism] Onset: 07-31-2025 Chronic Unclassified (1 source) Other intervertebral disc degeneration, 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 or lower extremity pain; Translations: [Other intervertebral disc degeneration, 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 or lower extremity pain] Onset: 06-07-2025 Viral infection (20 sources) COVID-19; Translations: [Pneumonia due to COVID-19 virus] 12-01-2021 Episodic Results Test Name Value Interpretation Reference Range Facility CRPon 09-04-2025 C-REACTIVE PROT < 3.00 Normal 0.0-3.0 [facility] Comment on above: Performed By: #### L 506.0400, L500.4100, L501.9520, L506.1000, L500.4050, L100.0100 #### [facility] [address] [facility]. [place], [place], [id number] Erythrocyte Sed Rateon 09-04 SED RATE 4 mm/hr Normal 0-30 [facility] Comment on above: Performed By: #### L 506.0400, L500.4100, L501.9520, L506.1000, L500.4050, L100.0100 #### [facility] [address] [place], [place], [id number] Absolute lymphocyte countOrd ered By: Sara Matute on 08-13-2025 Lymphocytes Auto (Unsp spec) [#/Vol] 1.77 10*3/uL 0.83-4.51 [facility] Absolute neutrophil countOrd ered By: Sara Matute on 08-13-2025 Neutrophils (Bld) [#/Vol] 2.4 10*3/uL 2.0-7.7 [facility] Anion gap in Serum or Plasma Ordered By: Sara Matute on 08-13-2025 Anion gap [Moles/Vol] 13 mmol/L - [facility] Automated lymphocyte count a s percentage of total leukocytesOrdered By: Sara Matute on 08-13-2025 Lymphocytes/100 WBC Auto (Unsp spec) 38.5 % [facility] BUN/creatinine ratioOrdered By: Sara Matute on 08-13-2025 Urea nitrogen/Creatinine [Mass ratio] 13.7 mg/mg - [facility] Basophil percentageOrdered B y: Sara Matute on 08-13-2025 Basophils/100 WBC (Bld) 0.7 % 0-1 [facility] Bilirubin, totalOrdered By: Sara Matute on 08-13-2025 Bilirubin [Mass/Vol] 0.40 mg/dL 0.00-1.30 [facility] CBC W/Diff, Automatedon 07-29 Absolute Lymph 1.77 X10 3/uL Normal 0.83-4.51 [facility] Comment on above: Performed By: #### L 506.0400, L500.4100, L501.9520, L506.1000, L500.4050, L100.0100 #### [facility] [address] [place], [address] Absolute Neut 2.4 X10 3/uL Normal 2.0-7.7 [facility] Comment on above: Performed By: #### L 506.0400, L500.4100, L501.9520, L506.1000, L500.4050, L100.0100 #### [facility] [address] [place], [address] Basophils/100 WBC (Bld) 0.7 % Normal 0-1 [facility] Comment on above: Performed By: #### L 506.0400, L500.4100, L501.9520, L506.1000, L500.4050, L100.0100 #### [facility] [address] [place], [address] Eosinophils/100 WBC (Bld) 1.3 % Normal 0-5 [facility] Comment on above: Performed By: #### L 506.0400, L500.4100, L501.9520, L506.1000, L500.4050, L100.0100 #### [facility] [address] [place], [address] Erythrocyte distribution width (RBC) [Ratio] 13.6 % Normal 11.6-14.6 [facility] Comment on above: Performed By: #### L 506.0400, L500.4100, L501.9520, L506.1000, L500.4050, L100.0100 #### [facility] [address] [place], [address] Hematocrit (Bld) [Volume fraction] 40.2 % Normal 37-47 [facility] Comment on above: Performed By: #### L 506.0400, L500.4100, L501.9520, L506.1000, L500.4050, L100.0100 #### [facility] [address] [place], [address] Hemoglobin (Bld) [Mass/Vol] 13.2 g/dL Normal 12.0-15.0 [facility] Comment on above: Performed By: #### L 506.0400, L500.4100, L501.9520, L506.1000, L500.4050, L100.0100 #### [facility] [address] [place], [address] IG% 0.200 Normal 0.0-0.9 [facility] Comment on above: Result Comment: IG% - Immature Granulocytes (promyelocytes, myelocytes and metamyelocytes) > 1% indicates that a LEFT SHIFT is Present. Performed By: #### L 506.0400, L500.4100, L501.9520, L506.1000, L500.4050, L100.0100 #### [facility] [address] [place], [address] Lymphocytes/100 WBC (Bld) 38.5 % Normal 19-41 [facility] Comment on above: Performed By: #### L 506.0400, L500.4100, L501.9520, L506.1000, L500.4050, L100.0100 #### [facility] [address] [place], [address] MCH (RBC) [Entitic mass] 32.6 pg High 27.0-32.0 [facility] Comment on above: Performed By: #### L 506.0400, L500.4100, L501.9520, L506.1000, L500.4050, L100.0100 #### [facility] [address] [place], [address] MCHC (RBC) [Mass/Vol] 32.8 g/dL Normal 32-36 [facility] Comment on above: Performed By: #### L 506.0400, L500.4100, L501.9520, L506.1000, L500.4050, L100.0100 #### [facility] [address] [place], [address] MCV (RBC) [Entitic vol] 99.3 fL High 81-99 [facility] Comment on above: Performed By: #### L 506.0400, L500.4100, L501.9520, L506.1000, L500.4050, L100.0100 #### [facility] [address] [place], [address] Monocytes/100 WBC (Bld) 6.7 % Normal 0-10 [facility] Comment on above: Performed By: #### L 506.0400, L500.4100, L501.9520, L506.1000, L500.4050, L100.0100 #### [facility] [address] [place], [address] Neutrophils/100 WBC (Bld) 52.6 % Normal 47-70 [facility] Comment on above: Performed By: #### L 506.0400, L500.4100, L501.9520, L506.1000, L500.4050, L100.0100 #### [facility] [address] [place], [address] Nucleated RBC (Bld) [#/Vol] 0 10*3/uL Normal 0-5 [facility] Comment on above: Performed By: #### L 506.0400, L500.4100, L501.9520, L506.1000, L500.4050, L100.0100 #### [facility] [address] [place], [address] Platelet mean volume (Bld) [Entitic vol] 10.2 fL Normal 6.2-12.0 [facility] Comment on above: Performed By: #### L 506.0400, L500.4100, L501.9520, L506.1000, L500.4050, L100.0100 #### [facility] [address] [place], [address] Platelets (Bld) [#/Vol] 250 10*3/uL Normal 150-450 [facility] Comment on above: Performed By: #### L 506.0400, L500.4100, L501.9520, L506.1000, L500.4050, L100.0100 #### [facility] [address] [place], [address] RBC (Bld) [#/Vol] 4.05 10*6/uL Low 4.2-5.4 [facility] Comment on above: Performed By: #### L 506.0400, L500.4100, L501.9520, L506.1000, L500.4050, L100.0100 #### [facility] [address] [place], [address] RDW SD 49.6 fl High 35.1-43.9 [facility] Comment on above: Performed By: #### L 506.0400, L500.4100, L501.9520, L506.1000, L500.4050, L100.0100 #### [facility] [address] [place], [address] WBC (Bld) [#/Vol] 4.6 10*3/uL Normal 4.4-11.0 [facility] Comment on above: Performed By: #### L 506.0400, L500.4100, L501.9520, L506.1000, L500.4050, L100.0100 #### [facility] [address] [place], [address] Carbon dioxide, total [Moles /volume] in Central venous bloodOrdered By: Sara Matute on 08-13-2025 CO2 [Moles/Vol] 22.4 mmol/L 21.0-32.0 [facility] Chloride assayOrdered By: Adrianna Matute on 08-13-2025 Chloride [Moles/Vol] 104 mmol/L 98-108 [facility] Comprehensive Metabolic Prof ilon 08-13-2025 Albumin [Mass/Vol] 4.3 g/dL Normal 3.4-4.8 [facility] Comment on above: Order Comment: Order Date: 10/24/24 Order Info: [id number] - CMP Order Info: [id number] - LIPID Order Date: 03/08/24 Order Info: [id number] - MG Order Info: [id number] - TSH Order Info: 3024-7 - T4F Performed By: #### L 506.0400, L500.4100, L501.9520, L506.1000, L500.4050, L100.0100 #### [facility] [address] [place], [address] Albumin/Globulin [Mass ratio] 1.8 {ratio} Normal 0.9-2.4 [facility] Comment on above: Order Comment: Order Date: 10/24/24 Order Info: [id number] - CMP Order Info: [id number] - LIPID Order Date: 03/08/24 Order Info: [id number] - MG Order Info: [id number] - TSH Order Info: 3024-7 - T4F Performed By: #### L 506.0400, L500.4100, L501.9520, L506.1000, L500.4050, L100.0100 #### [facility] [address] [place], [address] ALK PHOS 47 U/L Normal 35-104 [facility] Comment on above: Order Comment: Order Date: 10/24/24 Order Info: 86-1 - CMP Order Info: [id number] - LIPID Order Date: 03/08/24 Order Info: [id number] - MG Order Info: [id number] - TSH Order Info: 3024-7 - T4F Performed By: #### L 506.0400, L500.4100, L501.9520, L506.1000, L500.4050, L100.0100 #### [facility] [address] [place], [address] ALT [Catalytic activity/Vol] 17 U/L Normal <=34 [facility] Comment on above: Order Comment: Order Date: 10/24/24 Order Info: [id number] - CMP Order Info: [id number] - LIPID Order Date: 03/08/24 Order Info: [id number] - MG Order Info: 3016-3 - TSH Order Info: 3024-7 - T4F Performed By: #### L 506.0400, L500.4100, L501.9520, L506.1000, L500.4050, L100.0100 #### [facility] [address] [place], [address] AST [Catalytic activity/Vol] 24 U/L Normal <=31 [facility] Comment on above: Order Comment: Order Date: 10/24/24 Order Info: [id number] - CMP Order Info: [id number] - LIPID Order Date: 03/08/24 Order Info: [id number] - MG Order Info: [id number] - TSH Order Info: 3024-7 - T4F Performed By: #### L 506.0400, L500.4100, L501.9520, L506.1000, L500.4050, L100.0100 #### [facility] [address] [place], [address] Bilirubin [Mass/Vol] 0.40 mg/dL Normal 0.00-1.30 [facility] Comment on above: Order Comment: Order Date: 10/24/24 Order Info: 86-1 - CMP Order Info: [id number] - LIPID Order Date: 03/08/24 Order Info: [id number] - MG Order Info: [id number] - TSH Order Info: 3024-7 - T4F Performed By: #### L 506.0400, L500.4100, L501.9520, L506.1000, L500.4050, L100.0100 #### [facility] [address] [place], [address] BUN/CRE 13.7 RATIO Normal 10-20 [facility] Comment on above: Order Comment: Order Date: 10/24/24 Order Info: [id number] - CMP Order Info: [id number] - LIPID Order Date: 03/08/24 Order Info: [id number] - MG Order Info: [id number] - TSH Order Info: 3024-7 - T4F Performed By: #### L 506.0400, L500.4100, L501.9520, L506.1000, L500.4050, L100.0100 #### [facility] [address] [place], [address] Calcium [Mass/Vol] 9.5 mg/dL Normal 7.6-11.0 [facility] Comment on above: Order Comment: Order Date: 10/24/24 Order Info: 86-1 - CMP Order Info: [id number] - LIPID Order Date: 03/08/24 Order Info: [id number] - MG Order Info: 3016-3 - TSH Order Info: 3024-7 - T4F Performed By: #### L 506.0400, L500.4100, L501.9520, L506.1000, L500.4050, L100.0100 #### [facility] [address] [place], [address] Chloride [Moles/Vol] 104 mmol/L Normal 98-108 [facility] Comment on above: Order Comment: Order Date: 10/24/24 Order Info: 785-1 - CMP Order Info: [id number] - LIPID Order Date: 03/08/24 Order Info: [id number] - MG Order Info: [id number] - TSH Order Info: 3024-7 - T4F Performed By: #### L 506.0400, L500.4100, L501.9520, L506.1000, L500.4050, L100.0100 #### [facility] [address] [place], [address] CO2 [Moles/Vol] 22.4 mmol/L Normal 21.0-32.0 [facility] Comment on above: Order Comment: Order Date: 10/24/24 Order Info: 86-1 - CMP Order Info: [id number] - LIPID Order Date: 03/08/24 Order Info: [id number] - MG Order Info: 3016-3 - TSH Order Info: 3024-7 - T4F Performed By: #### L 506.0400, L500.4100, L501.9520, L506.1000, L500.4050, L100.0100 #### [facility] [address] [place], [address] Creatinine [Mass/Vol] 0.69 mg/dL Low 0.70-1.20 [facility] Comment on above: Order Comment: Order Date: 10/24/24 Order Info: [id number] - CMP Order Info: [id number] - LIPID Order Date: 03/08/24 Order Info: [id number] - MG Order Info: 3016-3 - TSH Order Info: 3023-7 - T4F Performed By: #### L 506.0400, L500.4100, L501.9520, L506.1000, L500.4050, L100.0100 #### [facility] [address] [place], [address] GAP 13 Normal 5-15 [facility] Comment on above: Order Comment: Order Date: 10/24/24 Order Info: [id number] - CMP Order Info: [id number] - LIPID Order Date: 03/08/24 Order Info: [id number] - MG Order Info: 3 - TSH Order Info: 7 - T4F Performed By: #### L 506.0400, L500.4100, L501.9520, L506.1000, L500.4050, L100.0100 #### [facility] [address] [place], [address] GFR/1.73 sq M.predicted among non-blacks MDRD (S/P/Bld) [Vol rate/Area] 95 mL/min/{1.73_m2} Normal >60 [facility] Comment on above: Order Comment: Order Date: 10/24/24 Order Info: [id number] - CMP Order Info: [id number] - LIPID Order Date: 03/08/24 Order Info: [id number] - MG Order Info: 3 - TSH Order Info: 7 - T4F Result Comment: mL/m in/1.73m2 CKD-EPI Creatinine Equation (2020) Performed By: #### L 506.0400, L500.4100, L501.9520, L506.1000, L500.4050, L100.0100 #### [facility] [address] [place], [address] Globulin (S) [Mass/Vol] 2.3 g/dL Normal 2.2-4.2 [facility] Comment on above: Order Comment: Order Date: 10/24/24 Order Info: [id number] - CMP Order Info: [id number] - LIPID Order Date: 03/08/24 Order Info: [id number] - MG Order Info: [id number] - TSH Order Info: 3024-7 - T4F Performed By: #### L 506.0400, L500.4100, L501.9520, L506.1000, L500.4050, L100.0100 #### [facility] [address] [place], [address] Glucose [Mass/Vol] 111 mg/dL High 70-99 [facility] Comment on above: Order Comment: Order Date: 10/24/24 Order Info: 86-1 - CMP Order Info: [id number] - LIPID Order Date: 03/08/24 Order Info: [id number] - MG Order Info: 3016-3 - TSH Order Info: 3024-7 - T4F Performed By: #### L 506.0400, L500.4100, L501.9520, L506.1000, L500.4050, L100.0100 #### [facility] [address] [place], [address] Potassium [Moles/Vol] 3.9 mmol/L Normal 3.3-5.1 [facility] Comment on above: Order Comment: Order Date: 10/24/24 Order Info: [id number] - CMP Order Info: [id number] - LIPID Order Date: 03/08/24 Order Info: [id number] - MG Order Info: 3016-3 - TSH Order Info: 3024-7 - T4F Performed By: #### L 506.0400, L500.4100, L501.9520, L506.1000, L500.4050, L100.0100 #### [facility] [address] [place], [address] Sodium [Moles/Vol] 140 mmol/L Normal 133-145 [facility] Comment on above: Order Comment: Order Date: 10/24/24 Order Info: [id number] - CMP Order Info: [id number] - LIPID Order Date: 03/08/24 Order Info: [id number] - MG Order Info: [id number] - TSH Order Info: 3024-7 - T4F Performed By: #### L 506.0400, L500.4100, L501.9520, L506.1000, L500.4050, L100.0100 #### [facility] [address] [place], [address] T PROT 6.6 g/dL Normal 5.9-8.4 [facility] Comment on above: Order Comment: Order Date: 10/24/24 Order Info: [id number] - CMP Order Info: [id number] - LIPID Order Date: 03/08/24 Order Info: [id number] - MG Order Info: [id number] - TSH Order Info: 3024-7 - T4F Performed By: #### L 506.0400, L500.4100, L501.9520, L506.1000, L500.4050, L100.0100 #### [facility] [address] [place], [address] Urea nitrogen [Mass/Vol] 9 mg/dL Normal 4-19 [facility] Comment on above: Order Comment: Order Date: 10/24/24 Order Info: [id number] - CMP Order Info: [id number] - LIPID Order Date: 03/08/24 Order Info: [id number] - MG Order Info: [id number] - TSH Order Info: 3024-7 - T4F Performed By: #### L 506.0400, L500.4100, L501.9520, L506.1000, L500.4050, L100.0100 #### [facility] [address] [place], [address] Eosinophil percentageOrdered By: Sara Matute on 08-13-2025 Eosinophils/100 WBC (Bld) 1.3 % 0-5 [facility] Erythrocyte distribution wid th ratioOrdered By: Sara Matute on 08-13-2025 Erythrocyte distribution width (RBC) [Ratio] 13.6 % 11.6-14.6 [facility] Erythrocyte distribution wid th standard deviationOrdered By: Sara Matute on 08-13-2025 Erythrocyte distribution width (RBC) [Ratio] 49.6 fl High 35.1-43.9 [facility] Glomerular filtration rate ( GFR) estimation/1.73 sq m using serum, plasma, or whole bOrdered By: Sara Matute on 08-13-2025 GFR/1.73 sq M.predicted among non-blacks MDRD (S/P/Bld) [Vol rate/Area] 95 mL/min/{1.73_m2} >60 [facility] Comment on above: mL/min/1.73m2 CKD-EP I Creatinine Equation (2020) Hematocrit Auto (Bld) [Volum e fraction]Ordered By: Sara Matute on 08-13-2025 Hematocrit (Bld) [Volume fraction] 40.2 % 37-47 [facility] Hemoglobin measurementOrdere d By: Sara Matute on 08-13-2025 Hemoglobin (Bld) [Mass/Vol] 13.2 g/dL 12.0-15.0 [facility] Immature granulocytes/100 WB C Auto (Bld)Ordered By: Sara Matute 08-13-2025 Immature granulocytes/100 WBC (Bld) 0.200 % 0.0-0.9 [facility] Comment on above: IG% - Immature Granu locytes (promyelocytes, myelocytes and metamyelocytes) > 1% indicates that a LEFT SHIFT is Present. Laboratory - Chemistry and C hemistry - challengeOrdered By: Sara Matute on 08-13-2025 AST [Catalytic activity/Vol] 24 U/L <32 [facility] MCV (mean corpuscular volume ) determinationOrdered By: Sara Matute on 08-13-2025 MCV (RBC) [Entitic vol] 99.3 fL High 81-99 [facility] Mean corpuscular hemoglobin (MCH) determinationOrdered By: Sara Matute on 08-13-2025 MCH (RBC) [Entitic mass] 32.6 pg High 27.0-32.0 [facility] [facility] Mean corpuscular hemoglobin concentration (MCHC) determinationOrdered By: Sara Matute on 08-13-2025 MCHC (RBC) [Mass/Vol] 32.8 g/dL 32-36 [facility] Mean platelet volume determi nationOrdered By: Sara Matute on 08-13-2025 Platelet mean volume (Bld) [Entitic vol] 10.2 fL 6.2-12.0 [facility] Monocyte percentageOrdered B y: Sara Matute on 08-13-2025 Monocytes/100 WBC (Bld) 6.7 % 0-10 [facility] Neutrophil percentageOrdered By: Sara Matute on 08-13-2025 Neutrophils/100 WBC (Bld) 52.6 % 47-70 [facility] Nucleated red blood cell per centageOrdered By: Sara Matute on 08-13-2025 Nucleated RBC/100 WBC (Bld) [Ratio] 0 % 0-5 [facility] Platelet countOrdered By: Adrianna Matute on 08-13-2025 Platelets (Bld) [#/Vol] 250 10*3/uL 150-450 [facility] Potassium measurement (mass/ volume)Ordered By: Sara Matute on 08-13-2025 Potassium (Unsp spec) [Mass/Vol] 3.9 mmol/L 3.3-5.1 [facility] RBC Auto (Bld) [#/Vol]Ordere d By: Sara Matute on 08-13-2025 RBC (Bld) [#/Vol] 4.05 10*6/uL Low 4.2-5.4 [facility] Serum creatinine measurement (mass/volume)Ordered By: Sara Matute on 08-13-2025 Creatinine [Mass/Vol] 0.69 mg/dL Low 0.70-1.20 [facility] Serum globulin measurementOr dered By: Sara Matute on 08-13-2025 Globulin (S) [Mass/Vol] 2.3 g/dL 2.2-4.2 [facility] Serum glucose measurement (m ass/volume)Ordered By: Sara Matute on 08-13-2025 Glucose [Mass/Vol] 111 mg/dL High 70-99 [facility] Serum or plasma alanine parkinson otransferase (ALT) measurementOrdered By: Sara Matute on 08-13-2025 ALT [Catalytic activity/Vol] 17 U/L <35 [facility] Serum or plasma albumin lamine urement (mass/volume)Ordered By: Sara Matute on 08-13-2025 Albumin [Mass/Vol] 4.3 g/dL 3.4-4.8 [facility] Serum or plasma albumin/glob ulin mass ratioOrdered By: Sara Matute on 08-13-2025 Albumin/Globulin [Mass ratio] 1.8 {ratio} 0.9-2.4 [facility] Serum or plasma alkaline heike sphatase measurementOrdered By: Sara Matute on 08-13-2025 ALP [Catalytic activity/Vol] 47 U/L 35-104 [facility] Serum or plasma calcium lamine urement (mass/volume)Ordered By: Sara Matute on 08-13-2025 Calcium [Mass/Vol] 9.5 mg/dL 7.6-11.0 [facility] Serum or plasma urea nitroge n measurement (mass/volume)Ordered By: Sara Matute on 08-13-2025 Urea nitrogen [Mass/Vol] 9 mg/dL 4-19 [facility] Sodium levelOrdered By: Mazin Matute on 08-13-2025 Sodium [Moles/Vol] 140 mmol/L 133-145 [facility] Total proteinOrdered By: Deuce Matute on 08-13-2025 Protein [Mass/Vol] 6.6 g/dL 5.9-8.4 [facility] White blood cell (WBC) count Ordered By: Sara Matute on 08-13-2025 WBC (Bld) [#/Vol] 4.6 10*3/uL 4.4-11.0 [facility] Cardiovascular stress test r eportOrdered By: Elias Reich on 07-29-2025 Study report [facility] [address] [place] [address] MR#: [id number] Acct: [id number] Name: AUGUSTUS TARIQ Rep #: [id number] : 1955 69 From: Elias Reich MD Primary Care: Dr. Gaetano Tilley MD [facility] tus: REG CLI Referring Dr: Gaetano Tilley MD Sex: F C Stress Test Report Pharmacologic myocardial perfusion stress test. 69-year-old lady with a history of abnormal EKG. Resting EKG demonstrates normal sinus rhythm with a rate of 62 bpm. Resting blood pressure is 124/70 mmHg. 0.4 mg of regadenoson was infused per usual protocol followed by rapid intravenous saline flush injection. Continuous EKG monitoring was performed. The maximum heart rate was 80 bpm which was 52% of maximpacted heart rate the maximum workload was 1 metabolic equivalent. At rest there were no ST or T wave changes noted to suggest ischemia and at peak infusion nonspecific ST changes were noted which did not meet the criteria for ischemia. No clinical angina is noted. The final blood pressure was 118/72 mmHg. Myocardial perfusion protocol. 12 mCi of technetium 99m sestamibi was injected at rest. 0.4 mg of regadenoson was infused per usual protocol. At peak infusion 36 mCi of technetium 99m sestamibi was injected stress images were obtained stress and rest images were reconstructed and compared in the short axis vertical long and horizontal long axis. Gated images were also obtained. Perfusion SPECT analysis: Review of the stress images demonstrate normal uptake of tracer noted in all areas of the myocardium. The resting images similar demonstrated normal uptake of tracer noted in all areas of the myocardium. No areas of reversibility are noted to suggest ischemia and no previous infarct is noted. Gated SPECT analysis: The gated ejection fraction is 62%. Conclusion: Normal pharmacologic myocardial perfusion stress test. Preserved ejection fraction. 07/29/25 1430 Date _ Elias Reich MD CC: Dr. Gaetano Tilley MD ~ Date Dictated: 07/29/251427 Date Transcribed: 09/01/25 1428 Global Account Manager: [place] Signed [facility] Work Phone: Stress Reporton 07-29-2025 Stress Report [facility] [address] [place] [address] MR#: [id number] Acct: [id number] Name: AUGUSTUS TARIQ Rep #: [id number] : 1955 69 From: Elias Reich MD Primary Care: Dr. Gaetano Tilley MD Status: REG CLI Referring Dr: Gaetano Tilley MD Sex: F C Stress Test Report Pharmacologic myocardial perfusion stress test. 69-year-old lady with a history of abnormal EKG. Resting EKG demonstrates normal sinus rhythm with a rate of 62 bpm. Resting blood pressure is 124/70 mmHg. 0.4 mg of regadenoson was infused per usual protocol followed by rapid intravenous saline flush injection. Continuous EKG monitoring was performed. The maximum heart rate was 80 bpm which was 52% of max impacted heart rate the maximum workload was 1 metabolic equivalent. At rest there were no ST or T wave changes noted to suggest ischemia and at peak infusion nonspecific ST changes were noted which did not meet the criteria for ischemia. No clinical angina is noted. The final blood pressure was 118/72 mmHg. Myocardial perfusion protocol. 12 mCi of technetium 99m sestamibi was injected at rest. 0.4 mg of regadenoson was infused per usual protocol. At peak infusion 36 mCi of technetium 99m sestamibi was injected stress images were obtained stress and rest images were reconstructed and compared in the short axis vertical long and horizontal long axis. Gated images were also obtained. Perfusion SPECT analysis: Review of the stress images demonstrate normal uptake of tracer noted in all areas of the myocardium. The resting images similar demonstrated normal uptake of tracer noted in all areas of the myocardium. No areas of reversibility are noted to suggest ischemia and no previous infarct is noted. Gated SPECT analysis: The gated ejection fraction is 62%. Conclusion: Normal pharmacologic myocardial perfusion stress test. Preserved ejection fraction. 07/29/25 1430 Date Elias Reich MD CC: Dr. Gaetano Tilley MD Date Dictated: 07/29/251427 Date Transcribed: 07/29/251427 Global Account Manager: [place] Signed Normal [facility] Absolute lymphocyte countOrd ered By: Gaetano Tilley on 07-23-2025 Lymphocytes Auto (Unsp spec) [#/Vol] 1.75 10*3/uL 0.83-4.51 [facility] Absolute neutrophil countOrd ered By: Gaetano Tilley on 07-23-2025 Neutrophils (Bld) [#/Vol] 2.3 10*3/uL 2.0-7.7 [facility] Anion gap in Serum or Plasma Ordered By: Gaetano Tilley on 07-23-2025 Anion gap [Moles/Vol] 12 mmol/L 5- [facility] Automated lymphocyte count a s percentage of total leukocytesOrdered By: Gaetano Tilley on 07-23-2025 Lymphocytes/100 WBC Auto (Unsp spec) 38.0 % - [facility] BUN/creatinine ratioOrdered By: Gaetano Tilley on 07-23-2025 Urea nitrogen/Creatinine [Mass ratio] 13.1 mg/mg 10-20 [facility] Basophil percentageOrdered B y: Gaetano Tilley on 07-23-2025 Basophils/100 WBC (Bld) 0.9 % 0-1 [facility] Bilirubin Test strip Ql (U)O rdered By: Gaetano Tilley on 07-23-2025 Bilirubin Ql (U) Negative Negative [facility] Bilirubin, totalOrdered By: Gaetano Tilley on 07-23-2025 Bilirubin [Mass/Vol] 0.39 mg/dL 0.00-1.30 [facility] CBC W/Diff, Automatedon 06-29 Absolute Lymph 1.75 X10 3/uL Normal 0.83-4.51 [facility] Comment on above: Order Comment: Order Date: 10/24/24 Order Info: 0786-1 - CMP Order Info: [id number] - LIPID Order Date: 03/08/24 Order Info: [id number] - MG Order Info: 3016-3 - TSH Order Info: 3024-7 - T4F Performed By: #### L 506.0400, L500.4100, L501.9520, L506.1000, L500.4050, L100.0100 #### [facility] [address] [place], [address] Absolute Neut 2.3 X10 3/uL Normal 2.0-7.7 [facility] Comment on above: Order Comment: Order Date: 10/24/24 Order Info: 0786-1 - CMP Order Info: [id number] - LIPID Order Date: 03/08/24 Order Info: [id number] - MG Order Info: 3016-3 - TSH Order Info: 3024-7 - T4F Performed By: #### L 506.0400, L500.4100, L501.9520, L506.1000, L500.4050, L100.0100 #### [facility] [address] [place], [address] Basophils/100 WBC (Bld) 0.9 % Normal 0-1 [facility] Comment on above: Order Comment: Order Date: 10/24/24 Order Info: 86-1 - CMP Order Info: 77934-7 - LIPID Order Date: 03/08/24 Order Info: [id number] - MG Order Info: 3016-3 - TSH Order Info: 3024-7 - T4F Performed By: #### L 506.0400, L500.4100, L501.9520, L506.1000, L500.4050, L100.0100 #### [facility] [address] [place], [address] Eosinophils/100 WBC (Bld) 2.2 % Normal 0-5 [facility] Comment on above: Order Comment: Order Date: 10/24/24 Order Info: 0786-1 - CMP Order Info: 32034-7 - LIPID Order Date: 03/08/24 Order Info: [id number] - MG Order Info: 3016-3 - TSH Order Info: 3024-7 - T4F Performed By: #### L 506.0400, L500.4100, L501.9520, L506.1000, L500.4050, L100.0100 #### [facility] [address] [place], [place], [id number] Erythrocyte distribution width (RBC) [Ratio] 14.0 % Normal 11.6-14.6 [facility] Comment on above: Order Comment: Order Date: 10/24/24 Order Info: 86-1 - CMP Order Info: [id number] - LIPID Order Date: 03/08/24 Order Info: 04886-5 - MG Order Info: 3016-3 - TSH Order Info: 3024-7 - T4F Performed By: #### L 506.0400, L500.4100, L501.9520, L506.1000, L500.4050, L100.0100 #### [facility] [address] [place], [place], [id number] Hematocrit (Bld) [Volume fraction] 41.0 % Normal 37-47 [facility] Comment on above: Order Comment: Order Date: 10/24/24 Order Info: 86-1 - CMP Order Info: 80006-0 - LIPID Order Date: 03/08/24 Order Info: 13769-1 - MG Order Info: 301-3 - TSH Order Info: 3024-7 - T4F Performed By: #### L 506.0400, L500.4100, L501.9520, L506.1000, L500.4050, L100.0100 #### [facility] [address] [place], [place], [id number] Hemoglobin (Bld) [Mass/Vol] 13.2 g/dL Normal 12.0-15.0 [facility] Comment on above: Order Comment: Order Date: 10/24/24 Order Info: 0786-1 - CMP Order Info: 59752-4 - LIPID Order Date: 03/08/24 Order Info: 77545-7 - MG Order Info: 3016-3 - TSH Order Info: 3024-7 - T4F Performed By: #### L 506.0400, L500.4100, L501.9520, L506.1000, L500.4050, L100.0100 #### [facility] [address] [place], [address] IG% 0.200 Normal 0.0-0.9 [facility] Comment on above: Order Comment: Order Date: 10/24/24 Order Info: 86-1 - CMP Order Info: 14734-3 - LIPID Order Date: 03/08/24 Order Info: [id number] - MG Order Info: 3016-3 - TSH Order Info: 302-7 - T4F Result Comment: IG% - Immature Granulocytes (promyelocytes, myelocytes and metamyelocytes) > 1% indicates that a LEFT SHIFT is Present. Performed By: #### L 506.0400, L500.4100, L501.9520, L506.1000, L500.4050, L100.0100 #### [facility] [address] [place], [address] Lymphocytes/100 WBC (Bld) 38.0 % Normal 19-41 [facility] Comment on above: Order Comment: Order Date: 10/24/24 Order Info: 785-11 - CMP Order Info: - LIPID Order Date: 03/08/24 Order Info: 20340-4 - MG Order Info: 3016-3 - TSH Order Info: 302-7 - T4F Performed By: #### L 506.0400, L500.4100, L501.9520, L506.1000, L500.4050, L100.0100 #### [facility] [address] [place], [address] MCH (RBC) [Entitic mass] 32.7 pg High 27.0-32.0 [facility] Comment on above: Order Comment: Order Date: 10/24/24 Order Info: 86-1 - CMP Order Info: 80017-7 - LIPID Order Date: 03/08/24 Order Info: 03476-9 - MG Order Info: 3016-3 - TSH Order Info: 30247 - T4F Performed By: #### L 506.0400, L500.4100, L501.9520, L506.1000, L500.4050, L100.0100 #### [facility] [address] [place], [address] MCHC (RBC) [Mass/Vol] 32.2 g/dL Normal 32-36 [facility] Comment on above: Order Comment: Order Date: 10/24/24 Order Info: 0786-1 - CMP Order Info: 60703-9 - LIPID Order Date: 03/08/24 Order Info: 25589-0 - MG Order Info: 3016-3 - TSH Order Info: 3024-7 - T4F Performed By: #### L 506.0400, L500.4100, L501.9520, L506.1000, L500.4050, L100.0100 #### [facility] [address] [place], [address] MCV (RBC) [Entitic vol] 101.5 fL High 81-99 [facility] Comment on above: Order Comment: Order Date: 10/24/24 Order Info: 86-1 - CMP Order Info: 02781-1 - LIPID Order Date: 03/08/24 Order Info: 33369-9 - MG Order Info: 3016-3 - TSH Order Info: 3024-7 - T4F Performed By: #### L 506.0400, L500.4100, L501.9520, L506.1000, L500.4050, L100.0100 #### [facility] [address] [place], [address] Monocytes/100 WBC (Bld) 8.3 % Normal 0-10 [facility] Comment on above: Order Comment: Order Date: 10/24/24 Order Info: 0786-1 - CMP Order Info: 88539-5 - LIPID Order Date: 03/08/24 Order Info: 01839-0 - MG Order Info: 3016-3 - TSH Order Info: 3024-7 - T4F Performed By: #### L 506.0400, L500.4100, L501.9520, L506.1000, L500.4050, L100.0100 #### [facility] [address] [place], [place], [phone] ([phone]) Neutrophils/100 WBC (Bld) 50.4 % Normal 47-70 [facility] Comment on above: Order Comment: Order Date: 10/24/24 Order Info: 86-1 - CMP Order Info: 50057-2 - LIPID Order Date: 03/08/24 Order Info: 71868-4 - MG Order Info: 6-3 - TSH Order Info: 3024-7 - T4F Performed By: #### L 506.0400, L500.4100, L501.9520, L506.1000, L500.4050, L100.0100 #### [facility] [address] [place], [place], [id number] [phone] Nucleated RBC (Bld) [#/Vol] 0 10*3/uL Normal 0-5 [facility] Comment on above: Order Comment: Order Date: 10/24/24 Order Info: 785-1 - CMP Order Info: 72208-5 - LIPID Order Date: 03/08/24 Order Info: [id number] - MG Order Info: 3015-3 - TSH Order Info: 3024-7 - T4F Performed By: #### L 506.0400, L500.4100, L501.9520, L506.1000, L500.4050, L100.0100 #### [facility] [address] [place], [place], [address] [phone] Platelet mean volume (Bld) [Entitic vol] 9.9 fL Normal 6.2-12.0 [facility] Comment on above: Order Comment: Order Date: 10/24/24 Order Info: 86-1 - CMP Order Info: 03470-4 - LIPID Order Date: 03/08/24 Order Info: 77641-1 - MG Order Info: 3016-3 - TSH Order Info: 3024-7 - T4F Performed By: #### L 506.0400, L500.4100, L501.9520, L506.1000, L500.4050, L100.0100 #### [facility] [address] [place], [address] Platelets (Bld) [#/Vol] 271 10*3/uL Normal 150-450 [facility] Comment on above: Order Comment: Order Date: 10/24/24 Order Info: 0786-1 - CMP Order Info: 37347-2 - LIPID Order Date: 03/08/24 Order Info: 14133-6 - MG Order Info: 3016-3 - TSH Order Info: 3024-7 - T4F Performed By: #### L 506.0400, L500.4100, L501.9520, L506.1000, L500.4050, L100.0100 #### [facility] [address] [place], [address] RBC (Bld) [#/Vol] 4.04 10*6/uL Low 4.2-5.4 [facility] Comment on above: Order Comment: Order Date: 10/24/24 Order Info: 86-1 - CMP Order Info: 72898-1 - LIPID Order Date: 03/08/24 Order Info: 92893-0 - MG Order Info: 3016-3 - TSH Order Info: 3024-7 - T4F Performed By: #### L 506.0400, L500.4100, L501.9520, L506.1000, L500.4050, L100.0100 #### [facility] [address] [place], [address] RDW SD 52.9 fl High 35.1-43.9 [facility] Comment on above: Order Comment: Order Date: 10/24/24 Order Info: 0786-1 - CMP Order Info: 28940-7 - LIPID Order Date: 03/08/24 Order Info: 96826-3 - MG Order Info: 3016-3 - TSH Order Info: 3024-7 - T4F Performed By: #### L 506.0400, L500.4100, L501.9520, L506.1000, L500.4050, L100.0100 #### [facility] [address] [place], [address] WBC (Bld) [#/Vol] 4.6 10*3/uL Normal 4.4-11.0 [facility] Comment on above: Order Comment: Order Date: 10/24/24 Order Info: 0786-1 - CMP Order Info: 81672-7 - LIPID Order Date: 03/08/24 Order Info: 15391-2 - MG Order Info: 3016-3 - TSH Order Info: 3024-7 - T4F Performed By: #### L 506.0400, L500.4100, L501.9520, L506.1000, L500.4050, L100.0100 #### [facility] [address] [place], [address] Calculated very low density lipoprotein (VLDL) cholesterol measurementOrdered By: Gaetano Tilley on 07-23-2025 Calculated very low density lipoprotein (VLDL) cholesterol measurement 44 mg/dL High 5-40 [facility] Carbon dioxide, total [Moles /volume] in Central venous bloodOrdered By: Gaetano Tilley on 07-23-2025 CO2 [Moles/Vol] 25.4 mmol/L 21.0-32.0 [facility] Chest PA and Lateralon 07-23 Chest PA and Lateral [facility] [address] [facility] [address] Chest PA and Lateral MR#: [id number] Acct: [id number] Name: AUGUSTUS TARIQ Rep #: [id number] : 1955 F 69 From: Koby Calderon PCP: Dr. Gaetano Tilley MD Status: REG CLI Study: Chest PA and Lateral Date of Exam: 07/23/25 Exam# [id number] Ordering Dr: Gaetano Tilley MD PROCEDURE: CHEST PA AND LATERAL 07/23/2025 REASON FOR EXAM: CHEST PAIN TECHNIQUE: CHEST PA AND LATERAL COMPARISON: AP chest of 11/17/2021. RAD/Chest PA and Lateral IMPRESSION: Lungs appear clear of acute disease. No pleural effusion or pneumothorax is noted. The cardiomediastinal silhouette is stable, with a somewhat tortuous aorta noted. No evidence of cardiomegaly. Mild degenerative changes of the visualized spine and at least mild degenerative changes of the acromioclavicular joints are seen. No acute osseous change is noted. Reading Location: [place] [address] CC: Dr. Gaetano Tilley MD Global Account Manager: Signed Normal [facility] Chloride assayOrdered By: Ting Tilley on 07-23-2025 Chloride [Moles/Vol] 104 mmol/L 98-108 [facility] Comprehensive Metabolic Prof ilon 07-23-2025 Albumin [Mass/Vol] 4.2 g/dL Normal 3.4-4.8 [facility] Comment on above: Order Comment: Order Date: 10/24/24 Order Info: 0786-1 - CMP Order Info: [id number] - LIPID Order Date: 03/08/24 Order Info: 23917-8 - MG Order Info: 301-3 - TSH Order Info: 7 - T4F Performed By: #### L 506.0400, L500.4100, L501.9520, L506.1000, L500.4050, L100.0100 #### [facility] [address] [facility] [place], [address] Albumin/Globulin [Mass ratio] 1.8 {ratio} Normal 0.9-2.4 [facility] Comment on above: Order Comment: Order Date: 10/24/24 Order Info: 0786-1 - CMP Order Info: 30325-0 - LIPID Order Date: 03/08/24 Order Info: 11055-3 - MG Order Info: 3016-3 - TSH Order Info: 3024-7 - T4F Performed By: #### L 506.0400, L500.4100, L501.9520, L506.1000, L500.4050, L100.0100 #### [facility] [address] [place], [address] ALK PHOS 53 U/L Normal 35-104 [facility] Comment on above: Order Comment: Order Date: 10/24/24 Order Info: 86-1 - CMP Order Info: 45424-8 - LIPID Order Date: 03/08/24 Order Info: [id number] - MG Order Info: 3016-3 - TSH Order Info: 3024-7 - T4F Performed By: #### L 506.0400, L500.4100, L501.9520, L506.1000, L500.4050, L100.0100 #### [facility] [address] [place], [address] ALT [Catalytic activity/Vol] 16 U/L Normal <=34 [facility] Comment on above: Order Comment: Order Date: 10/24/24 Order Info: 785-1 - CMP Order Info: 53271-5 - LIPID Order Date: 03/08/24 Order Info: 76440-9 - MG Order Info: 3016-3 - TSH Order Info: 3024-7 - T4F Performed By: #### L 506.0400, L500.4100, L501.9520, L506.1000, L500.4050, L100.0100 #### [facility] [address] [place], [address] AST [Catalytic activity/Vol] 25 U/L Normal <=31 [facility] Comment on above: Order Comment: Order Date: 10/24/24 Order Info: 86-1 - CMP Order Info: 34600-8 - LIPID Order Date: 03/08/24 Order Info: 98857-5 - MG Order Info: 3016-3 - TSH Order Info: 3024-7 - T4F Performed By: #### L 506.0400, L500.4100, L501.9520, L506.1000, L500.4050, L100.0100 #### [facility] [address] [place], [address] Bilirubin [Mass/Vol] 0.39 mg/dL Normal 0.00-1.30 [facility] Comment on above: Order Comment: Order Date: 10/24/24 Order Info: 0786-1 - CMP Order Info: 60781-6 - LIPID Order Date: 03/08/24 Order Info: 66035-1 - MG Order Info: 3016-3 - TSH Order Info: 3024-7 - T4F Performed By: #### L 506.0400, L500.4100, L501.9520, L506.1000, L500.4050, L100.0100 #### [facility] [address] [place], [address] BUN/CRE 13.1 RATIO Normal 10-20 [facility] Comment on above: Order Comment: Order Date: 10/24/24 Order Info: 0786-1 - CMP Order Info: 48529-1 - LIPID Order Date: 03/08/24 Order Info: 90980-7 - MG Order Info: 3016-3 - TSH Order Info: 3024-7 - T4F Performed By: #### L 506.0400, L500.4100, L501.9520, L506.1000, L500.4050, L100.0100 #### [facility] [address] [place], [address] Calcium [Mass/Vol] 9.7 mg/dL Normal 7.6-11.0 [facility] Comment on above: Order Comment: Order Date: 10/24/24 Order Info: 0786-1 - CMP Order Info: 94053-1 - LIPID Order Date: 03/08/24 Order Info: 79527-8 - MG Order Info: 3016-3 - TSH Order Info: 3024-7 - T4F Performed By: #### L 506.0400, L500.4100, L501.9520, L506.1000, L500.4050, L100.0100 #### [facility] [address] [place], [address] Chloride [Moles/Vol] 104 mmol/L Normal 98-108 [facility] Comment on above: Order Comment: Order Date: 10/24/24 Order Info: 0786-1 - CMP Order Info: 62562-0 - LIPID Order Date: 03/08/24 Order Info: [id number] - MG Order Info: 3016-3 - TSH Order Info: 3024-7 - T4F Performed By: #### L 506.0400, L500.4100, L501.9520, L506.1000, L500.4050, L100.0100 #### [facility] [address] [place], [address] CO2 [Moles/Vol] 25.4 mmol/L Normal 21.0-32.0 [facility] Comment on above: Order Comment: Order Date: 10/24/24 Order Info: 785-1 - CMP Order Info: 45800-3 - LIPID Order Date: 03/08/24 Order Info: 88139-6 - MG Order Info: 3016-3 - TSH Order Info: 3024-7 - T4F Performed By: #### L 506.0400, L500.4100, L501.9520, L506.1000, L500.4050, L100.0100 #### [facility] [address] [place], [address] Creatinine [Mass/Vol] 0.71 mg/dL Normal 0.70-1.20 [facility] Comment on above: Order Comment: Order Date: 10/24/24 Order Info: 0786-1 - CMP Order Info: 87019-7 - LIPID Order Date: 03/08/24 Order Info: [id number] - MG Order Info: 3016-3 - TSH Order Info: 3024-7 - T4F Performed By: #### L 506.0400, L500.4100, L501.9520, L506.1000, L500.4050, L100.0100 #### [facility] [address] [place], [address] GAP 12 Normal 5-15 [facility] Comment on above: Order Comment: Order Date: 10/24/24 Order Info: 0786-1 - CMP Order Info: [id number] - LIPID Order Date: 03/08/24 Order Info: [id number] - MG Order Info: 3015-3 - TSH Order Info: 7 - T4F Performed By: #### L 506.0400, L500.4100, L501.9520, L506.1000, L500.4050, L100.0100 #### [facility] [address] [place], [address] GFR/1.73 sq M.predicted among non-blacks MDRD (S/P/Bld) [Vol rate/Area] 93 mL/min/{1.73_m2} Normal >60 [facility] Comment on above: Order Comment: Order Date: 10/24/24 Order Info: 0786- - CMP Order Info: - LIPID Order Date: 03/08/24 Order Info: [id number] - MG Order Info: 3016-01 - TSH Order Info: 3024-05 - T4F Result Comment: mL/m in/1.73m2 CKD-EPI Creatinine Equation (2020) Performed By: #### L 506.0400, L500.4100, L501.9520, L506.1000, L500.4050, L100.0100 #### [facility] [address] [place], [address] Globulin (S) [Mass/Vol] 2.4 g/dL Normal 2.2-4.2 [facility] Comment on above: Order Comment: Order Date: 10/24/24 Order Info: 0786-1 - CMP Order Info: [id number] - LIPID Order Date: 03/08/24 Order Info: [id number] - MG Order Info: 3015-3 - TSH Order Info: 7 - T4F Performed By: #### L 506.0400, L500.4100, L501.9520, L506.1000, L500.4050, L100.0100 #### [facility] [address] [place], [address] Glucose [Mass/Vol] 79 mg/dL Normal 70-99 [facility] Comment on above: Order Comment: Order Date: 10/24/24 Order Info: 86-1 - CMP Order Info: [id number] - LIPID Order Date: 03/08/24 Order Info: 22656-0 - MG Order Info: 3016-3 - TSH Order Info: 3024-7 - T4F Performed By: #### L 506.0400, L500.4100, L501.9520, L506.1000, L500.4050, L100.0100 #### [facility] [address] [place], [address] Potassium [Moles/Vol] 3.9 mmol/L Normal 3.3-5.1 [facility] Comment on above: Order Comment: Order Date: 10/24/24 Order Info: 785-1 - CMP Order Info: 22656-2 - LIPID Order Date: 03/08/24 Order Info: 11380-6 - MG Order Info: 6-3 - TSH Order Info: 3024-7 - T4F Performed By: #### L 506.0400, L500.4100, L501.9520, L506.1000, L500.4050, L100.0100 #### [facility] [address] [place], [address] Sodium [Moles/Vol] 141 mmol/L Normal 133-145 [facility] Comment on above: Order Comment: Order Date: 10/24/24 Order Info: 0786-1 - CMP Order Info: [id number] - LIPID Order Date: 03/08/24 Order Info: [id number] - MG Order Info: 3016-3 - TSH Order Info: 3024-7 - T4F Performed By: #### L 506.0400, L500.4100, L501.9520, L506.1000, L500.4050, L100.0100 #### [facility] [address] [place], [address] T PROT 6.6 g/dL Normal 5.9-8.4 [facility] Comment on above: Order Comment: Order Date: 10/24/24 Order Info: 0786-1 - CMP Order Info: [id number] - LIPID Order Date: 03/08/24 Order Info: [id number] - MG Order Info: 3016-3 - TSH Order Info: 3023-7 - T4F Performed By: #### L 506.0400, L500.4100, L501.9520, L506.1000, L500.4050, L100.0100 #### [facility] [address] [place], [place], [id number] Urea nitrogen [Mass/Vol] 9 mg/dL Normal 4-19 [facility] Comment on above: Order Comment: Order Date: 10/24/24 Order Info: 0786-1 - CMP Order Info: [id number] - LIPID Order Date: 03/08/24 Order Info: [id number] - MG Order Info: 301-3 - TSH Order Info: 7 - T4F Performed By: #### L 506.0400, L500.4100, L501.9520, L506.1000, L500.4050, L100.0100 #### [facility] [address] [place], [place], [id number] Eosinophil percentageOrdered By: Gaetano Tilley on 07-23-2025 Eosinophils/100 WBC (Bld) 2.2 % 0-5 [facility] Erythrocyte distribution wid th ratioOrdered By: Gaetano Tilley on 07-23-2025 Erythrocyte distribution width (RBC) [Ratio] 14.0 % 11.6-14.6 [facility] Erythrocyte distribution wid th standard deviationOrdered By: Gaetano Tilley on 07-23-2025 Erythrocyte distribution width (RBC) [Ratio] 52.9 fl High 35.1-43.9 [facility] Glomerular filtration rate ( GFR) estimation/1.73 sq m using serum, plasma, or whole bOrdered By: Gaetano Tilley on 07-23-2025 GFR/1.73 sq M.predicted among non-blacks MDRD (S/P/Bld) [Vol rate/Area] 93 mL/min/{1.73_m2} >60 [facility] Comment on above: mL/min/1.73m2 CKD-EP I Creatinine Equation (2020) Hematocrit Auto (Bld) [Volum e fraction]Ordered By: Gaetano Tilley on 07-23-2025 Hematocrit (Bld) [Volume fraction] 41.0 % 37-47 [facility] Hemoglobin measurementOrdere d By: Gaetano Tilley on 07-23-2025 Hemoglobin (Bld) [Mass/Vol] 13.2 g/dL 12.0-15.0 [facility] Immature granulocytes/100 WB C Auto (Bld)Ordered By: Gaetano Tilley on 07-23-2025 Immature granulocytes/100 WBC (Bld) 0.200 % 0.0-0.9 [facility] Comment on above: IG% - Immature Granu locytes (promyelocytes, myelocytes and metamyelocytes) > 1% indicates that a LEFT SHIFT is Present. Ketones Test strip Ql (U)Ord ered By: Gaetano Tilley on 07-23-2025 Ketones Ql (U) Negative Negative [facility] LDL calc ser/plasOrdered By: Gaetano Tilley on 07-23-2025 Cholesterol in LDL [Mass/Vol] 222 mg/dL [facility] Comment on above: Spyowhjyjn=558-123 m g/dL & Higher Svkc=561 mg/dL or greaterFriedwald Equation for LDL-C Laboratory - Chemistry and C hemistry - challengeOrdered By: Gaetano Tilley on 07-23-2025 AST [Catalytic activity/Vol] 25 U/L <32 [facility] Lipid Profileon 07-23-2025 CHOL:HDL 4.67 Normal [facility] Comment on above: Order Comment: Order Date: 10/24/24 Order Info: 0786-1 - CMP Order Info: [id number] - LIPID Order Date: 03/08/24 Order Info: [id number] - MG Order Info: 3016-3 - TSH Order Info: 3024-7 - T4F Performed By: #### L 506.0400, L500.4100, L501.9520, L506.1000, L500.4050, L100.0100 #### [facility] [address] [place], [address] Cholesterol [Mass/Vol] 339 mg/dL High <=200 [facility] Comment on above: Order Comment: Order Date: 10/24/24 Order Info: 0786-1 - CMP Order Info: [id number] - LIPID Order Date: 03/08/24 Order Info: [id number] - MG Order Info: 301-3 - TSH Order Info: 3027 - T4F Result Comment: Chol esterol level, Desirable <200 mg/dL Borderline high cholesterol 200-239 mg/dL High cholesterol >=240 mg/dL Recommendations of the NCEP Adult Treatment Panel for the following risk-cutoff thresholds for the [place] population. Performed By: #### L 506.0400, L500.4100, L501.9520, L506.1000, L500.4050, L100.0100 #### [facility] [address] [place], [address] Cholesterol in HDL [Mass/Vol] 73 mg/dL Normal [facility] Comment on above: Order Comment: Order Date: 10/24/24 Order Info: 0786- - CMP Order Info: [id number] - LIPID Order Date: 03/08/24 Order Info: [id number] - MG Order Info: 3016-3 - TSH Order Info: 30247 - T4F Result Comment: [place] onal Cholesterol Education Program (NCEP) guidelines: <40 mg/dL: Low HDL-cholesterol (major risk factor for CHD) >= 60 mg/dL: High HDL-cholesterol (negative risk factor for CHD) HDL-cholesterol is affected by a number of factors, e.g. smoking, exercise, hormones, sex and age. Performed By: #### L 506.0400, L500.4100, L501.9520, L506.1000, L500.4050, L100.0100 #### [facility] [address] [place], [address] Cholesterol in LDL [Mass/Vol] 222 mg/dL Normal [facility] Comment on above: Order Comment: Order Date: 10/24/24 Order Info: 0786-1 - CMP Order Info: [id number] - LIPID Order Date: 03/08/24 Order Info: [id number] - MG Order Info: 3 - TSH Order Info: 3024-05 - T4F Result Comment: Bord etqyrr=984-563 mg/dL Higher Pgme=101 mg/dL or greater Friedwald Equation for LDL-C Performed By: #### L 506.0400, L500.4100, L501.9520, L506.1000, L500.4050, L100.0100 #### [facility] [address] [place], [address] Cholesterol in VLDL [Mass/Vol] 44 mg/dL High 5-40 [facility] Comment on above: Order Comment: Order Date: 10/24/24 Order Info: 07-1 - CMP Order Info: - LIPID Order Date: 03/08/24 Order Info: [id number] - MG Order Info: 3 - TSH Order Info: 3024-05 - T4F Performed By: #### L 506.0400, L500.4100, L501.9520, L506.1000, L500.4050, L100.0100 #### [facility] [address] [place], [address] Triglyceride [Mass/Vol] 221 mg/dL [facility] Comment on above: Order Comment: Order Date: 10/24/24 Order Info: [id number] - CMP Order Info: - LIPID Order Date: 03/08/24 Order Info: [id number] - MG Order Info: 3 - TSH Order Info: 7 - T4F Result Comment: The drugs N-Acetylcysteine and Metamizole may falsely depress this assay. Normal range: <150 mg/dL Borderline High: 150-199 mg/dL High: 200-499 mg/dL Very High: >500 mg/dL Performed By: #### L 506.0400, L500.4100, L501.9520, L506.1000, L500.4050, L100.0100 #### [facility] [place], [address] MCV (mean corpuscular volume ) determinationOrdered By: Gaetano Tilley on 07-23-2025 MCV (RBC) [Entitic vol] 101.5 fL High 81-99 [facility] Mean corpuscular hemoglobin (MCH) determinationOrdered By: Gaetano Tilley on 07-23-2025 MCH (RBC) [Entitic mass] 32.7 pg High 27.0-32.0 [facility] Mean corpuscular hemoglobin concentration (MCHC) determinationOrdered By: Gaetano Tilley on 07-23-2025 MCHC (RBC) [Mass/Vol] 32.2 g/dL 32-36 [facility] Mean platelet volume determi nationOrdered By: Gaetano Tilley on 07-23-2025 Platelet mean volume (Bld) [Entitic vol] 9.9 fL 6.2-12.0 [facility] Microscopic analysis of urin e for red blood cells (RBC)Ordered By: Gaetano Tilley on 07-23-2025 Microscopic analysis of urine for red blood cells (RBC) 0 SEEN /hpf 0-5 [facility] Monocyte percentageOrdered B y: Gaetano Tilley on 07-23-2025 Monocytes/100 WBC (Bld) 8.3 % 0-10 [facility] Mucus LM Ql (Urine sed)Order ed By: Gaetano Tilley on 07-23-2025 Mucus Ql (Urine sed) 0 SEEN /hpf [facility] Neutrophil percentageOrdered By: Gaetano Tilley on 07-23-2025 Neutrophils/100 WBC (Bld) 50.4 % 47-70 [facility] Nitrite Test strip Ql (U)Ord ered By: Gaetano Tilley on 07-23-2025 Nitrite Ql (U) Negative Negative [facility] Nucleated red blood cell per centageOrdered By: Gaetano Tilley on 07-23-2025 Nucleated RBC/100 WBC (Bld) [Ratio] 0 % 0-5 [facility] Platelet countOrdered By: Ting Tilley on 07-23-2025 Platelets (Bld) [#/Vol] 271 10*3/uL 150-450 [facility] Potassium measurement (mass/ volume)Ordered By: Gaetano Tilley on 07-23-2025 Potassium (Unsp spec) [Mass/Vol] 3.9 mmol/L 3.3-5.1 [facility] Protein Test strip Ql (U)Ord ered By: Gaetano Tilley on 07-23-2025 Protein Ql (U) Negative Negative [facility] RBC Auto (Bld) [#/Vol]Ordere d By: Gaetano Tilley on 07-23-2025 RBC (Bld) [#/Vol] 4.04 10*6/uL Low 4.2-5.4 [facility] Screening total cholesterol/ high density lipoprotein (HDL) cholesterol ratioOrdered By: Gaetano Tilley on 07-23-2025 Cholesterol.total/Adrienne sterol in HDL [Mass ratio] 4.67 {ratio} [facility] Serum creatinine measurement (mass/volume)Ordered By: Gaetano Tilley on 07-23-2025 Creatinine [Mass/Vol] 0.71 mg/dL 0.70-1.20 [facility] Serum globulin measurementOr dered By: Gaetano Tilley on 07-23-2025 Globulin (S) [Mass/Vol] 2.4 g/dL 2.2-4.2 [facility] Serum glucose measurement (m ass/volume)Ordered By: Gaetano Tilley on 07-23-2025 Glucose [Mass/Vol] 79 mg/dL 70-99 [facility] Serum or plasma alanine parkinson otransferase (ALT) measurementOrdered By: Gaetano Tilley on 07-23-2025 ALT [Catalytic activity/Vol] 16 U/L <35 [facility] Serum or plasma albumin lamine urement (mass/volume)Ordered By: Gaetano Tilley on 07-23-2025 Albumin [Mass/Vol] 4.2 g/dL 3.4-4.8 [facility] Serum or plasma albumin/glob ulin mass ratioOrdered By: Gaetano Tilley on 07-23-2025 Albumin/Globulin [Mass ratio] 1.8 {ratio} 0.9-2.4 [facility] Serum or plasma alkaline heike sphatase measurementOrdered By: Gaetano Tilley on 07-23-2025 ALP [Catalytic activity/Vol] 53 U/L 35-104 [facility] Serum or plasma calcium lamine urement (mass/volume)Ordered By: Gaetano Tilley on 07-23-2025 Calcium [Mass/Vol] 9.7 mg/dL 7.6-11.0 [facility] Serum or plasma cholesterol in HDL measurement (mass/volume)Ordered By: Gaetano Tilley on 07-23-2025 Cholesterol in HDL [Mass/Vol] 73 mg/dL >40 [facility] Comment on above: National Cholesterol Education Program (NCEP) guidelines:<40 mg/dL: Low HDL-cholesterol (major risk factor for CHD)>= 60 mg/dL: High HDL-cholesterol (negative risk factor for CHD)HDL-cholesterol is affected by a number of factors, e.g. smoking, exercise, hormones, sex and age. Serum or plasma cholesterol measurement (mass/volume)Ordered By: Gaetano Tilley on 07-23-2025 Cholesterol [Mass/Vol] 339 mg/dL High <201 [facility] Comment on above: Cholesterol level, D esirable <200 mg/dLBorderline high cholesterol 200-239 mg/dLHigh cholesterol >=240 mg/dLRecommendations of the NCEP Adult Treatment Panel for the following risk-cutoff thresholds for the [place] population. Serum or plasma urea nitroge n measurement (mass/volume)Ordered By: Gaetano Tilley on 07-23-2025 Urea nitrogen [Mass/Vol] 9 mg/dL 4-19 [facility] Sodium levelOrdered By: Gaetano Tilley on 07-23-2025 Sodium [Moles/Vol] 141 mmol/L 133-145 [facility] Squamous epithelial cells de tection in urine sediment by light microscopyOrdered By: Gaetano Tilley on 07-23-2025 Epithelial cells.squamous LM Ql (Urine sed) 0 SEEN /hpf 5-10 [facility] T4 Free Directon 07-23-2025 T4 FREE DIRECT 1.20 ng/dL Normal 0.76-1.46 [facility] Comment on above: Order Comment: Order Date: 10/24/24 Order Info: [id number] - CMP Order Info: [id number] - LIPID Order Date: 03/08/24 Order Info: [id number] - MG Order Info: 3016-3 - TSH Order Info: 3024-7 - T4F Performed By: #### L 506.0400, L500.4100, L501.9520, L506.1000, L500.4050, L100.0100 #### [facility] [address] [place], [place], [id number] T4 freeOrdered By: Gaetano hu on 07-23-2025 Free T4 [Mass/Vol] 1.20 ng/dL 0.76-1.46 [facility] TSH DL <= 0.005 mIU/L QnOrde red By: Gaetano Tilley on 07-23-2025 TSH Qn 4.540 uIU/mL High 0.300-4.200 [facility] Thyroid Stim Hormone (TSH)on 07-23-2025 TSH 4.540 uIU/mL High 0.300-4.200 [facility] Comment on above: Order Comment: Order Date: 10/24/24 Order Info: [id number] - CMP Order Info: [id number] - LIPID Order Date: 03/08/24 Order Info: [id number] - MG Order Info: 3016-3 - TSH Order Info: 3024-7 - T4F Performed By: #### L 506.0400, L500.4100, L501.9520, L506.1000, L500.4050, L100.0100 #### [facility] [address] [place], [address] Total proteinOrdered By: Venkat Tilley on 07-23-2025 Protein [Mass/Vol] 6.6 g/dL 5.9-8.4 [facility] Triglycerides measurementOrd ered By: Gaetano Tilley on 07-23-2025 Triglyceride [Mass/Vol] 221 mg/dL High <199 [facility] Comment on above: The drugs N-Acetylcy steine and Metamizole may falsely depress this assay. Normal range: <150 mg/dLBorderline High: 150-199 mg/dLHigh: 200-499 mg/dLVery High: >500 mg/dL Urinalysis, Completeon 07-23 BACTERIA 0 SEEN Normal None Seen [facility] Comment on above: Order Comment: Order Date: 10/24/24 Order Info: 0786-1 - CMP Order Info: [id number] - LIPID Order Date: 03/08/24 Order Info: [id number] - MG Order Info: 3016-3 - TSH Order Info: 3024-7 - T4F Performed By: #### L 506.0400, L500.4100, L501.9520, L506.1000, L500.4050, L100.0100 #### [facility] [address] [place], [address] EPI,SQUAMOUS 0 SEEN Normal 5-10 [facility] Comment on above: Order Comment: Order Date: 10/24/24 Order Info: 785-1 - CMP Order Info: 12565-9 - LIPID Order Date: 03/08/24 Order Info: [id number] - MG Order Info: 3015-3 - TSH Order Info: 3024-7 - T4F Performed By: #### L 506.0400, L500.4100, L501.9520, L506.1000, L500.4050, L100.0100 #### [facility] [address] [place], [address] Mucus Ql (Urine sed) 0 SEEN Normal [facility] Comment on above: Order Comment: Order Date: 10/24/24 Order Info: 785-1 - CMP Order Info: [id number] - LIPID Order Date: 03/08/24 Order Info: 91437-8 - MG Order Info: 301-3 - TSH Order Info: 3024-7 - T4F Performed By: #### L 506.0400, L500.4100, L501.9520, L506.1000, L500.4050, L100.0100 #### [facility] [address] [place], [address] RBC 0 SEEN Normal 0-5 [facility] Comment on above: Order Comment: Order Date: 10/24/24 Order Info: 86-1 - CMP Order Info: [id number] - LIPID Order Date: 03/08/24 Order Info: [id number] - MG Order Info: 3 - TSH Order Info: 3024-05 - T4F Performed By: #### L 506.0400, L500.4100, L501.9520, L506.1000, L500.4050, L100.0100 #### [facility] [address] [place], [address] WBC 0 SEEN Normal 0-5 [facility] Comment on above: Order Comment: Order Date: 10/24/24 Order Info: 0786-1 - CMP Order Info: [id number] - LIPID Order Date: 03/08/24 Order Info: [id number] - MG Order Info: 3 - TSH Order Info: 3024-05 T4F Performed By: #### L 506.0400, L500.4100, L501.9520, L506.1000, L500.4050, L100.0100 #### [facility] [address] [place], [place], [address] Urine clarityOrdered By: Venkat Tilley on 07-23-2025 Clarity (U) Clear Clear [facility] Urine color determinationOrd ered By: Gaetano Tilley on 07-23-2025 Color (U) Yellow Yellow [facility] Urine glucose detectionOrder ed By: Gaetano Tilley on 07-23-2025 Glucose Ql (U) Normal mg/dl Normal [facility] Urine leukocyte esterase det ection by dipstickOrdered By: Gaetano Tilley on 07-23-2025 Leukocyte esterase Test strip Ql (U) Negative Negative [facility] Urine pHOrdered By: Gaetano wilkerson on 07-23-2025 pH (U) 6.0 [pH] 5.0 - 8.0 [facility] Urine sediment bacteria coun t by microscopy (number/high power field)Ordered By: Gaetano Tilley on 07-23-2025 Bacteria LM.HPF (Urine sed) [#/Area] 0 /[HPF] None Seen [facility] Urine specific gravity measu rementOrdered By: Gaetano Tilley on 07-23-2025 Specific gravity (U) [Rel density] 1.015 1.002-1.030 [facility] Urine urobilinogen measureme ntOrdered By: Gaetano Tilley on 07-23-2025 Urobilinogen Ql (U) Normal mg/dl Normal [facility] Vitamin D,25 Hydroxyon 07-23 Vitamin D 25-OH 41.2 ng/mL Normal 30-100 [facility] Comment on above: Order Comment: Order Date: 10/24/24 Order Info: [id number] - CMP Order Info: [id number] - LIPID Order Date: 03/08/24 Order Info: [id number] - MG Order Info: 3016-3 - TSH Order Info: 3024-7 - T4F Result Comment: Libby min D Status Deficiency: <20 ng/mL (50nmol/L) Insufficiency: 20-30 ng/mL (50-75 nmol/L) Sufficiency: 30-100 ng/mL (75-250 nmol/L) Toxicity: >100 ng/mL (>250 nmol/L) Performed By: #### L 506.0400, L500.4100, L501.9520, L506.1000, L500.4050, L100.0100 #### [facility] [address] [place], [address] White blood cell (WBC) count Ordered By: Gaetano Tilley on 07-23-2025 WBC (Bld) [#/Vol] 4.6 10*3/uL 4.4-11.0 [facility] White blood cell countOrdere d By: Gaetano Tilley on 07-23-2025 White blood cell count 0 SEEN /hpf 0-5 [facility] L/S Spine Min 4 Viewson 07 L/S Spine Min 4 Views [facility] [address] [place] [address] L/S Spine Min 4 Views MR#: [id number] Acct: [id number] Name: CHANDNIAUGUSTUS Adam Rep #: [id number] : 1955 F 69 From: Angelique Ghotra PCP: Dr. Gaetano Tilley MD Status: REG CLI Study: L/S Spine Min 4 Views Date of Exam: 06/03/25 Exam# [id number] Ordering Dr: Mercedes Crow PROCEDURE: L/S SPINE [...] of the L5 vertebral body. Reading Location: [id number] CC: Mercedes Crow; Dr. Gaetano Tilley MD Global Account Manager: Signed Normal [facility] Absolute lymphocyte countOrd ered By: Sara Matute on 05-24-2025 Lymphocytes Auto (Unsp spec) [#/Vol] 1.40 10*3/uL 0.83-4.51 [facility] Absolute neutrophil countOrd ered By: Sara Matute on 05-24-2025 Neutrophils (Bld) [#/Vol] 1.9 10*3/uL Low 2.0-7.7 [facility] Anion gap in Serum or Plasma Ordered By: Sara Matute on 05-24-2025 Anion gap [Moles/Vol] 11 mmol/L 5-15 [facility] Automated blood erythrocyte countOrdered By: Sara Matute on 05-24-2025 RBC (Bld) [#/Vol] 3.91 10*6/uL Low 4.2-5.4 [facility] Comment on above: Performed By: #### L 506.0400, L500.4100, L501.9520, L506.1000, L500.4050, L100.0100 #### [facility] [address] [facility] [place], [place], [id number] Automated blood hematocrit ( percentage)Ordered By: Sara Matute on 05-24-2025 Hematocrit (Bld) [Volume fraction] 38.9 % Normal 37-47 [facility] Comment on above: Performed By: #### L 506.0400, L500.4100, L501.9520, L506.1000, L500.4050, L100.0100 #### [facility] [address] [facility] [place], [place], [id number] Automated lymphocyte count a s percentage of total leukocytesOrdered By: Sara Matute on 05-24-2025 Lymphocytes/100 WBC Auto (Unsp spec) 36.5 % 19- [facility] BUN/creatinine ratioOrdered By: Sara Matute on 05-24-2025 Urea nitrogen/Creatinine [Mass ratio] 13.0 mg/mg 10-20 [facility] Basophil percentageOrdered B y: Sara Matute on 05-24-2025 Basophils/100 WBC (Bld) 1.0 % Normal 0-1 [facility] Comment on above: Performed By: #### L 506.0400, L500.4100, L501.9520, L506.1000, L500.4050, L100.0100 #### [facility] [address] [place], [address] Bilirubin, totalOrdered By: Sara Matute on 05-24-2025 Bilirubin [Mass/Vol] 0.37 mg/dL 0.00-1.30 [facility] CBC W/Diff, Automatedon 04-29 Absolute Lymph 1.40 X10 3/uL Normal 0.83-4.51 [facility] Comment on above: Performed By: #### L 506.0400, L500.4100, L501.9520, L506.1000, L500.4050, L100.0100 #### [facility] [address] [place], [address] Absolute Neut 1.9 X10 3/uL Low 2.0-7.7 [facility] Comment on above: Performed By: #### L 506.0400, L500.4100, L501.9520, L506.1000, L500.4050, L100.0100 #### [facility] [address] [place], [address] IG% 0.300 Normal 0.0-0.9 [facility] Comment on above: Result Comment: IG% - Immature Granulocytes (promyelocytes, myelocytes and metamyelocytes) > 1% indicates that a LEFT SHIFT is Present. Performed By: #### L 506.0400, L500.4100, L501.9520, L506.1000, L500.4050, L100.0100 #### [facility] [address] [place], [address] Lymphocytes/100 WBC (Bld) 36.5 % Normal 19-41 [facility] Comment on above: Performed By: #### L 506.0400, L500.4100, L501.9520, L506.1000, L500.4050, L100.0100 #### [facility] [address] [place], [address] Nucleated RBC (Bld) [#/Vol] 0 10*3/uL Normal 0-5 [facility] Comment on above: Performed By: #### L 506.0400, L500.4100, L501.9520, L506.1000, L500.4050, L100.0100 #### [facility] [address] [place], [address] RDW SD 50.4 fl High 35.1-43.9 [facility] Comment on above: Performed By: #### L 506.0400, L500.4100, L501.9520, L506.1000, L500.4050, L100.0100 #### [facility] [address] [place], [address] Carbon dioxide, total [Moles /volume] in Central venous bloodOrdered By: Sara Matute on 05-24-2025 CO2 [Moles/Vol] 23.0 mmol/L 21.0-32.0 [facility] Chloride assayOrdered By: Adrianna Matute on 05-24-2025 Chloride [Moles/Vol] 107 mmol/L 98-108 [facility] Comprehensive Metabolic Prof ilon 05-24-2025 Albumin [Mass/Vol] 4.2 g/dL Normal 3.4-4.8 [facility] Comment on above: Performed By: #### L 506.0400, L500.4100, L501.9520, L506.1000, L500.4050, L100.0100 #### [facility] [address] [place], [address] Albumin/Globulin [Mass ratio] 1.8 {ratio} Normal 0.9-2.4 [facility] Comment on above: Performed By: #### L 506.0400, L500.4100, L501.9520, L506.1000, L500.4050, L100.0100 #### [facility] [address] [place], [address] ALK PHOS 54 U/L Normal 35-104 [facility] Comment on above: Performed By: #### L 506.0400, L500.4100, L501.9520, L506.1000, L500.4050, L100.0100 #### [facility] [address] [place], [address] ALT [Catalytic activity/Vol] 13 U/L Normal <=34 [facility] Comment on above: Performed By: #### L 506.0400, L500.4100, L501.9520, L506.1000, L500.4050, L100.0100 #### [facility] [address] [place], [address] AST [Catalytic activity/Vol] 22 U/L Normal <=31 [facility] Comment on above: Performed By: #### L 506.0400, L500.4100, L501.9520, L506.1000, L500.4050, L100.0100 #### [facility] [address] [place], [address] Bilirubin [Mass/Vol] 0.37 mg/dL Normal 0.00-1.30 [facility] Comment on above: Performed By: #### L 506.0400, L500.4100, L501.9520, L506.1000, L500.4050, L100.0100 #### [facility] [address] [place], [address] BUN/CRE 13.0 RATIO Normal 10-20 [facility] Comment on above: Performed By: #### L 506.0400, L500.4100, L501.9520, L506.1000, L500.4050, L100.0100 #### [facility] [address] [place], [address] Calcium [Mass/Vol] 9.2 mg/dL Normal 7.6-11.0 [facility] Comment on above: Performed By: #### L 506.0400, L500.4100, L501.9520, L506.1000, L500.4050, L100.0100 #### [facility] [address] [place], [address] Chloride [Moles/Vol] 107 mmol/L Normal 98-108 [facility] Comment on above: Performed By: #### L 506.0400, L500.4100, L501.9520, L506.1000, L500.4050, L100.0100 #### [facility] [address] [place], [address] CO2 [Moles/Vol] 23.0 mmol/L Normal 21.0-32.0 [facility] Comment on above: Performed By: #### L 506.0400, L500.4100, L501.9520, L506.1000, L500.4050, L100.0100 #### [facility] [address] [place], [address] Creatinine [Mass/Vol] 0.63 mg/dL Low 0.70-1.20 [facility] Comment on above: Performed By: #### L 506.0400, L500.4100, L501.9520, L506.1000, L500.4050, L100.0100 #### [facility] [address] [place], [address] GAP 11 Normal 5-15 [facility] Comment on above: Performed By: #### L 506.0400, L500.4100, L501.9520, L506.1000, L500.4050, L100.0100 #### [facility] [address] [place], [address] GFR/1.73 sq M.predicted among non-blacks MDRD (S/P/Bld) [Vol rate/Area] 97 mL/min/{1.73_m2} Normal >60 [facility] Comment on above: Result Comment: mL/m in/1.73m2 CKD-EPI Creatinine Equation (2020) Performed By: #### L 506.0400, L500.4100, L501.9520, L506.1000, L500.4050, L100.0100 #### [facility] [address] [place], [address] Globulin (S) [Mass/Vol] 2.3 g/dL Normal 2.2-4.2 [facility] Comment on above: Performed By: #### L 506.0400, L500.4100, L501.9520, L506.1000, L500.4050, L100.0100 #### [facility] [address] [place], [address] Glucose [Mass/Vol] 96 mg/dL Normal 70-99 [facility] Comment on above: Performed By: #### L 506.0400, L500.4100, L501.9520, L506.1000, L500.4050, L100.0100 #### [facility] [address] [place], [address] Potassium [Moles/Vol] 4.2 mmol/L Normal 3.3-5.1 [facility] Comment on above: Performed By: #### L 506.0400, L500.4100, L501.9520, L506.1000, L500.4050, L100.0100 #### [facility] [address] [place], [address] Sodium [Moles/Vol] 142 mmol/L Normal 133-145 [facility] Comment on above: Performed By: #### L 506.0400, L500.4100, L501.9520, L506.1000, L500.4050, L100.0100 #### [facility] [address] [place], [address] T PROT 6.5 g/dL Normal 5.9-8.4 [facility] Comment on above: Performed By: #### L 506.0400, L500.4100, L501.9520, L506.1000, L500.4050, L100.0100 #### [facility] [address] [place], [address] Urea nitrogen [Mass/Vol] 8 mg/dL Normal 4-19 [facility] Comment on above: Performed By: #### L 506.0400, L500.4100, L501.9520, L506.1000, L500.4050, L100.0100 #### [facility] [address] [place], [address] Eosinophil percentageOrdered By: Sara Matute on 05-24-2025 Eosinophils/100 WBC (Bld) 2.1 % Normal 0-5 [facility] Comment on above: Performed By: #### L 506.0400, L500.4100, L501.9520, L506.1000, L500.4050, L100.0100 #### [facility] [address] [place], [address] Erythrocyte distribution wid th ratioOrdered By: Sara Matute on 05-24-2025 Erythrocyte distribution width (RBC) [Ratio] 13.8 % Normal 11.6-14.6 [facility] Comment on above: Performed By: #### L 506.0400, L500.4100, L501.9520, L506.1000, L500.4050, L100.0100 #### [facility] [address] [place], [address] Erythrocyte distribution wid th standard deviationOrdered By: Sara Matute on 05-24-2025 Erythrocyte distribution width (RBC) [Ratio] 50.4 fl High 35.1-43.9 [facility] Glomerular filtration rate ( GFR) estimation/1.73 sq m using serum, plasma, or whole bOrdered By: Sara Matute on 05-24-2025 GFR/1.73 sq M.predicted among non-blacks MDRD (S/P/Bld) [Vol rate/Area] 97 mL/min/{1.73_m2} >60 [facility] Comment on above: mL/min/1.73m2 CKD-EP I Creatinine Equation (2020) Hemoglobin measurementOrdere d By: Sara Matute on 05-24-2025 Hemoglobin (Bld) [Mass/Vol] 12.6 g/dL Normal 12.0-15.0 [facility] Comment on above: Performed By: #### L 506.0400, L500.4100, L501.9520, L506.1000, L500.4050, L100.0100 #### [facility] [address] [facility] [place], [place], [id number] Immature granulocytes/100 WB C Auto (Bld)Ordered By: Sara Matute on 05-24-2025 Immature granulocytes/100 WBC (Bld) 0.300 % 0.0-0.9 [facility] Comment on above: IG% - Immature Granu locytes (promyelocytes, myelocytes and metamyelocytes) > 1% indicates that a LEFT SHIFT is Present. Laboratory - Chemistry and C hemistry - challengeOrdered By: Sara Matute on 05-24-2025 AST [Catalytic activity/Vol] 22 U/L <32 [facility] MCV (mean corpuscular volume ) determinationOrdered By: Sara Matute on 05-24-2025 MCV (RBC) [Entitic vol] 99.5 fL High 81-99 [facility] Comment on above: Performed By: #### L 506.0400, L500.4100, L501.9520, L506.1000, L500.4050, L100.0100 #### [facility] [address] [facility] [place], [place], [address] Mean corpuscular hemoglobin (MCH) determinationOrdered By: Sara Matute on 05-24-2025 MCH (RBC) [Entitic mass] 32.2 pg High 27.0-32.0 [facility] Comment on above: Performed By: #### L 506.0400, L500.4100, L501.9520, L506.1000, L500.4050, L100.0100 #### [facility] [address] [place], [address] Mean corpuscular hemoglobin concentration (MCHC) determinationOrdered By: Sara Matute on 05-24-2025 MCHC (RBC) [Mass/Vol] 32.4 g/dL Normal 32-36 [facility] Comment on above: Performed By: #### L 506.0400, L500.4100, L501.9520, L506.1000, L500.4050, L100.0100 #### [facility] [address] [place], [address] Mean platelet volume determi nationOrdered By: Sara Matute on 05-24-2025 Platelet mean volume (Bld) [Entitic vol] 10.2 fL Normal 6.2-12.0 [facility] Comment on above: Performed By: #### L 506.0400, L500.4100, L501.9520, L506.1000, L500.4050, L100.0100 #### [facility] [address] [place], [address] Monocyte percentageOrdered B y: Sara Matute on 05-24-2025 Monocytes/100 WBC (Bld) 9.6 % Normal 0-10 [facility] Comment on above: Performed By: #### L 506.0400, L500.4100, L501.9520, L506.1000, L500.4050, L100.0100 #### [facility] [address] [place], [address] Neutrophil percentageOrdered By: Sara Matute on 05-24-2025 Neutrophils/100 WBC (Bld) 50.5 % Normal 47-70 [facility] Comment on above: Performed By: #### L 506.0400, L500.4100, L501.9520, L506.1000, L500.4050, L100.0100 #### [facility] [address] [place], [address] Nucleated red blood cell per centageOrdered By: Sara Matute on 05-24-2025 Nucleated RBC/100 WBC (Bld) [Ratio] 0 % 0-5 [facility] Platelet countOrdered By: Adrianna Matute on 05-24-2025 Platelets (Bld) [#/Vol] 243 10*3/uL Normal 150-450 [facility] Comment on above: Performed By: #### L 506.0400, L500.4100, L501.9520, L506.1000, L500.4050, L100.0100 #### [facility] [address] [place], [address] Potassium measurement (mass/ volume)Ordered By: Sara Matute on 05-24-2025 Potassium (Unsp spec) [Mass/Vol] 4.2 mmol/L 3.3-5.1 [facility] Serum creatinine measurement (mass/volume)Ordered By: Sara Matute on 05-24-2025 Creatinine [Mass/Vol] 0.63 mg/dL Low 0.70-1.20 [facility] Serum globulin measurementOr dered By: Sara Matute on 05-24-2025 Globulin (S) [Mass/Vol] 2.3 g/dL 2.2-4.2 [facility] Serum glucose measurement (m ass/volume)Ordered By: Sara Matute on 05-24-2025 Glucose [Mass/Vol] 96 mg/dL 70-99 [facility] Serum or plasma alanine parkinson otransferase (ALT) measurementOrdered By: Sara Matute on 05-24-2025 ALT [Catalytic activity/Vol] 13 U/L <35 [facility] Serum or plasma albumin lamine urement (mass/volume)Ordered By: Sara Matute on 05-24-2025 Albumin [Mass/Vol] 4.2 g/dL 3.4-4.8 [facility] Serum or plasma albumin/glob ulin mass ratioOrdered By: Sara Matute on 05-24-2025 Albumin/Globulin [Mass ratio] 1.8 {ratio} 0.9-2.4 [facility] Serum or plasma alkaline heike sphatase measurementOrdered By: Sara Matute on 05-24-2025 ALP [Catalytic activity/Vol] 54 U/L 35-104 [facility] Serum or plasma calcium lamine urement (mass/volume)Ordered By: Sara Matute on 05-24-2025 Calcium [Mass/Vol] 9.2 mg/dL 7.6-11.0 [facility] Serum or plasma urea nitroge n measurement (mass/volume)Ordered By: Sara Matute on 05-24-2025 Urea nitrogen [Mass/Vol] 8 mg/dL 4-19 [facility] Sodium levelOrdered By: Mazin Matute on 05-24-2025 Sodium [Moles/Vol] 142 mmol/L 133-145 [facility] Total proteinOrdered By: Deuce Matute on 05-24-2025 Protein [Mass/Vol] 6.5 g/dL 5.9-8.4 [facility] White blood cell (WBC) count Ordered By: Sara Matute on 05-24-2025 WBC (Bld) [#/Vol] 3.8 10*3/uL Low 4.4-11.0 [facility] Comment on above: Performed By: #### L 506.0400, L500.4100, L501.9520, L506.1000, L500.4050, L100.0100 #### [facility] [address] [place], [place] [address] [place], [address] Absolute lymphocyte countOrd ered By: Sara Matute on 02-26-2025 Lymphocytes Auto (Unsp spec) [#/Vol] 2.02 10*3/uL 0.83-4.51 [facility] Absolute neutrophil countOrd ered By: Sara Matute on 02-26-2025 Neutrophils (Bld) [#/Vol] 4.3 10*3/uL 2.0-7.7 [facility] Anion gap in Serum or Plasma Ordered By: Sara Matute on 02-26-2025 Anion gap [Moles/Vol] 12 mmol/L 5-15 [facility] Automated lymphocyte count a s percentage of total leukocytesOrdered By: Sara Matute on 02-26-2025 Lymphocytes/100 WBC Auto (Unsp spec) 28.0 % 19- [facility] BUN/creatinine ratioOrdered By: [facility] on 02-26-2025 Urea nitrogen/Creatinine [Mass ratio] 14.8 mg/mg 10- [facility] Basophil percentageOrdered B y: Sara Matute on 02-26-2025 Basophils/100 WBC (Bld) 0.8 % 0-1 [facility] Bilirubin, totalOrdered By: Sara Matute on 02-26-2025 Bilirubin [Mass/Vol] 0.29 mg/dL 0.00-1.30 [facility] CBC W/Diff, Automatedon 04-0 Absolute Lymph 2.02 X10 3/uL Normal 0.83-4.51 [facility] Comment on above: Performed By: #### L 500.4050, L100.0100 #### [facility] [address] [place], [address] Absolute Neut 4.3 X10 3/uL Normal 2.0-7.7 [facility] Comment on above: Performed By: #### L 500.4050, L100.0100 #### [facility] [address] [place], [address] Basophils/100 WBC (Bld) 0.8 % Normal 0-1 [facility] Comment on above: Performed By: #### L 500.4050, L100.0100 #### [facility] [address] [place], [address] Eosinophils/100 WBC (Bld) 6.1 % High 0-5 [facility] Comment on above: Performed By: #### L 500.4050, L100.0100 #### [facility] [address] [place], [address] Erythrocyte distribution width (RBC) [Ratio] 13.3 % Normal 11.6-14.6 [facility] Comment on above: Performed By: #### L 500.4050, L100.0100 #### [facility] [address] [place], [address] Hematocrit (Bld) [Volume fraction] 40.7 % Normal 37-47 [facility] Comment on above: Performed By: #### L 500.4050, L100.0100 #### [facility] [address] [place], [address] Hemoglobin (Bld) [Mass/Vol] 13.4 g/dL Normal 12.0-15.0 [facility] Comment on above: Performed By: #### L 500.4050, L100.0100 #### [facility] [address] [place], [address] IG% 0.100 Normal 0.0-0.9 [facility] Comment on above: Result Comment: IG% - Immature Granulocytes (promyelocytes, myelocytes and metamyelocytes) > 1% indicates that a LEFT SHIFT is Present. Performed By: #### L 500.4050, L100.0100 #### [facility] [address] [place], [address] Lymphocytes/100 WBC (Bld) 28.0 % Normal 19-41 [facility] Comment on above: Performed By: #### L 500.4050, L100.0100 #### [facility] [address] [place], [address] MCH (RBC) [Entitic mass] 33.0 pg High 27.0-32.0 [facility] Comment on above: Performed By: #### L 500.4050, L100.0100 #### [facility] [address] [place], [address] MCHC (RBC) [Mass/Vol] 32.9 g/dL Normal 32-36 [facility] Comment on above: Performed By: #### L 500.4050, L100.0100 #### [facility] [address] [place], [address] MCV (RBC) [Entitic vol] 100.2 fL High 81-99 [facility] Comment on above: Performed By: #### L 500.4050, L100.0100 #### [facility] [address] [place], [address] Monocytes/100 WBC (Bld) 6.0 % Normal 0-10 [facility] Comment on above: Performed By: #### L 500.4050, L100.0100 #### [facility] [address] [place], [address] Neutrophils/100 WBC (Bld) 59.0 % Normal 47-70 [facility] Comment on above: Performed By: #### L 500.4050, L100.0100 #### [facility] [address] [place], [address] Nucleated RBC (Bld) [#/Vol] 0 10*3/uL Normal 0-5 [facility] Comment on above: Performed By: #### L 500.4050, L100.0100 #### [facility] [address] [place], [address] Platelet mean volume (Bld) [Entitic vol] 10.3 fL Normal 6.2-12.0 [facility] Comment on above: Performed By: #### L 500.4050, L100.0100 #### [facility] [address] [place], [address] Platelets (Bld) [#/Vol] 246 10*3/uL Normal 150-450 [facility] Comment on above: Performed By: #### L 500.4050, L100.0100 #### [facility] [address] [place], [address] RBC (Bld) [#/Vol] 4.06 10*6/uL Low 4.2-5.4 [facility] Comment on above: Performed By: #### L 500.4050, L100.0100 #### [facility] [address] [place], [address] RDW SD 49.1 fl High 35.1-43.9 [facility] Comment on above: Performed By: #### L 500.4050, L100.0100 #### [facility] [address] [place], [address] WBC (Bld) [#/Vol] 7.2 10*3/uL Normal 4.4-11.0 [facility] Comment on above: Performed By: #### L 500.4050, L100.0100 #### [facility] [address] [place], [address] Carbon dioxide, total [Moles /volume] in Central venous bloodOrdered By: Sara Matute on 02-26-2025 CO2 [Moles/Vol] 24.8 mmol/L 21.0-32.0 [facility] Chloride assayOrdered By: Adrianna Matute on 02-26-2025 Chloride [Moles/Vol] 103 mmol/L 98-108 [facility] Comprehensive Metabolic Prof ilon 02-26-2025 Albumin [Mass/Vol] 4.2 g/dL Normal 3.4-4.8 [facility] Comment on above: Performed By: #### L 500.4050, L100.0100 #### [facility] [address] [place], [address] Albumin/Globulin [Mass ratio] 1.7 {ratio} Normal 0.9-2.4 [facility] Comment on above: Performed By: #### L 500.4050, L100.0100 #### [facility] [address] [place], [address] ALK PHOS 56 U/L Normal 35-104 [facility] Comment on above: Performed By: #### L 500.4050, L100.0100 #### [facility] [address] [place], [address] ALT [Catalytic activity/Vol] 11 U/L Normal <=34 [facility] Comment on above: Performed By: #### L 500.4050, L100.0100 #### [facility] [address] [place], [address] AST [Catalytic activity/Vol] 19 U/L Normal <=31 [facility] Comment on above: Performed By: #### L 500.4050, L100.0100 #### [facility] [address] [place], [address] Bilirubin [Mass/Vol] 0.29 mg/dL Normal 0.00-1.30 [facility] Comment on above: Performed By: #### L 500.4050, L100.0100 #### [facility] [address] [place], [address] BUN/CRE 14.8 RATIO Normal 10-20 [facility] Comment on above: Performed By: #### L 500.4050, L100.0100 #### [facility] [address] [place], [address] Calcium [Mass/Vol] 9.9 mg/dL Normal 7.6-11.0 [facility] Comment on above: Performed By: #### L 500.4050, L100.0100 #### [facility] [address] [place], [address] Chloride [Moles/Vol] 103 mmol/L Normal 98-108 [facility] Comment on above: Performed By: #### L 500.4050, L100.0100 #### [facility] [address] [place], [address] CO2 [Moles/Vol] 24.8 mmol/L Normal 21.0-32.0 [facility] Comment on above: Performed By: #### L 500.4050, L100.0100 #### [facility] [address] [place], [address] Creatinine [Mass/Vol] 0.70 mg/dL Normal 0.70-1.20 [facility] Comment on above: Performed By: #### L 500.4050, L100.0100 #### [facility] [address] [place], [address] GAP 12 Normal 5-15 [facility] Comment on above: Performed By: #### L 500.4050, L100.0100 #### [facility] [address] [place], [address] GFR/1.73 sq M.predicted among non-blacks MDRD (S/P/Bld) [Vol rate/Area] 95 mL/min/{1.73_m2} Normal >60 [facility] Comment on above: Result Comment: mL/m in/1.73m2 CKD-EPI Creatinine Equation (2020) Performed By: #### L 500.4050, L100.0100 #### [facility] [address] [place], [address] Globulin (S) [Mass/Vol] 2.5 g/dL Normal 2.2-4.2 [facility] Comment on above: Performed By: #### L 500.4050, L100.0100 #### [facility] [address] [place], [address] Glucose [Mass/Vol] 94 mg/dL Normal 70-99 [facility] Comment on above: Performed By: #### L 500.4050, L100.0100 #### [facility] [address] [place], [address] Potassium [Moles/Vol] 4.0 mmol/L Normal 3.3-5.1 [facility] Comment on above: Performed By: #### L 500.4050, L100.0100 #### [facility] [address] [place], [address] Sodium [Moles/Vol] 140 mmol/L Normal 133-145 [facility] Comment on above: Performed By: #### L 500.4050, L100.0100 #### [facility] [address] [place], [address] T PROT 6.8 g/dL Normal 5.9-8.4 [facility] Comment on above: Performed By: #### L 500.4050, L100.0100 #### [facility] [address] [place], [address] Urea nitrogen [Mass/Vol] 10 mg/dL Normal 4-19 [facility] Comment on above: Performed By: #### L 500.4050, L100.0100 #### [facility] [address] [place], [address] Eosinophil percentageOrdered By: Sara Matute on 02-26-2025 Eosinophils/100 WBC (Bld) 6.1 % High 0-5 [facility] Erythrocyte distribution wid th (RBC) [Ratio]Ordered By: Sara Matute on 02-26-2025 Erythrocyte distribution width (RBC) [Entitic vol] 49.1 fL High 35.1-43.9 [facility] Erythrocyte distribution wid th ratioOrdered By: Sara Matute on 02-26-2025 Erythrocyte distribution width (RBC) [Ratio] 13.3 % 11.6-14.6 [facility] Erythrocyte distribution wid th standard deviationOrdered By: Sara Matute on 02-26-2025 Erythrocyte distribution width (RBC) [Ratio] 49.1 fl High 35.1-43.9 [facility] GFR/1.73 sq M.predicted mckinley g non-blacks MDRD (S/P/Bld) [Vol rate/Area]Ordered By: Sara Matute on 02-26-2025 Estimated GFR (MDRD) Non-Af Amer 95 >60 [facility] Comment on above: mL/min/1.73m2 CKD-EP I Creatinine Equation (2020) Glomerular filtration rate ( GFR) estimation/1.73 sq m using serum, plasma, or whole bOrdered By: Sara Matute on 02-26-2025 GFR/1.73 sq M.predicted among non-blacks MDRD (S/P/Bld) [Vol rate/Area] 95 mL/min/{1.73_m2} >60 [facility] Comment on above: mL/min/1.73m2 CKD-EP I Creatinine Equation (2020) Hematocrit Auto (Bld) [Volum e fraction]Ordered By: Sara Matute on 02-26-2025 Hematocrit (Bld) [Volume fraction] 40.7 % 37-47 [facility] Hemoglobin measurementOrdere d By: Sara Matute on 02-26-2025 Hemoglobin (Bld) [Mass/Vol] 13.4 g/dL 12.0-15.0 [facility] Immature granulocytes/100 WB C Auto (Bld)Ordered By: Sara Matute on 02-26-2025 Immature granulocytes/100 WBC (Bld) 0.100 % 0.0-0.9 [facility] Comment on above: IG% - Immature Granu locytes (promyelocytes, myelocytes and metamyelocytes) > 1% indicates that a LEFT SHIFT is Present. Laboratory - Chemistry and C hemistry - challengeOrdered By: Sara Matute on 02-26-2025 AST [Catalytic activity/Vol] 19 U/L <32 [facility] Lymphocytes Auto (Unsp spec) [#/Vol]Ordered By: Sara Matute on 02-26-2025 Lymphocytes (Bld) [#/Vol] 2.02 10*3/uL 0.83-4.51 [facility] Lymphocytes/100 WBC Auto (Un sp spec)Ordered By: Sara Matute on 02-26-2025 Lymphocytes/100 WBC (Bld) 28.0 % 19-41 [facility] MCV (mean corpuscular volume ) determinationOrdered By: Sara Matute on 02-26-2025 MCV (RBC) [Entitic vol] 100.2 fL High 81-99 [facility] Mean corpuscular hemoglobin (MCH) determinationOrdered By: Sara Matute on 02-26-2025 MCH (RBC) [Entitic mass] 33.0 pg High 27.0-32.0 [facility] Mean corpuscular hemoglobin concentration (MCHC) determinationOrdered By: Sara Matute on 02-26-2025 MCHC (RBC) [Mass/Vol] 32.9 g/dL 32-36 [facility] Mean platelet volume determi nationOrdered By: Sara Matute on 02-26-2025 Platelet mean volume (Bld) [Entitic vol] 10.3 fL 6.2-12.0 [facility] Monocyte percentageOrdered B y: Sara Matute on 02-26-2025 Monocytes/100 WBC (Bld) 6.0 % 0-10 [facility] Neutrophil percentageOrdered By: Sara Matute on 02-26-2025 Neutrophils/100 WBC (Bld) 59.0 % 47-70 [facility] Nucleated red blood cell per centageOrdered By: Sara Matute on 02-26-2025 Nucleated RBC/100 WBC (Bld) [Ratio] 0 % 0-5 [facility] Platelet countOrdered By: Adrianna Matute on 02-26-2025 Platelets (Bld) [#/Vol] 246 10*3/uL 150-450 [facility] Potassium (Unsp spec) [Mass/ Vol]Ordered By: Sara Matute on 02-26-2025 Potassium [Moles/Vol] 4.0 mmol/L 3.3-5.1 [facility] Potassium measurement (mass/ volume)Ordered By: Sara Matute on 02-26-2025 Potassium (Unsp spec) [Mass/Vol] 4.0 mmol/L 3.3-5.1 [facility] RBC Auto (Bld) [#/Vol]Ordere d By: Sara Matute on 02-26-2025 RBC (Bld) [#/Vol] 4.06 10*6/uL Low 4.2-5.4 [facility] Serum creatinine measurement (mass/volume)Ordered By: Sara Matute on 02-26-2025 Creatinine [Mass/Vol] 0.70 mg/dL 0.70-1.20 [facility] Serum globulin measurementOr dered By: Sara Matute on 02-26-2025 Globulin (S) [Mass/Vol] 2.5 g/dL 2.2-4.2 [facility] Serum glucose measurement (m ass/volume)Ordered By: Sara Matute on 02-26-2025 Glucose [Mass/Vol] 94 mg/dL 70-99 [facility] Serum or plasma alanine parkinson otransferase (ALT) measurementOrdered By: Sara Matute on 02-26-2025 ALT [Catalytic activity/Vol] 11 U/L <35 [facility] Serum or plasma albumin lamine urement (mass/volume)Ordered By: Sara Matute on 02-26-2025 Albumin [Mass/Vol] 4.2 g/dL 3.4-4.8 [facility] Serum or plasma albumin/glob ulin mass ratioOrdered By: Sara Matute on 02-26-2025 Albumin/Globulin [Mass ratio] 1.7 {ratio} 0.9-2.4 [facility] Serum or plasma alkaline heike sphatase measurementOrdered By: Sara Matute on 02-26-2025 ALP [Catalytic activity/Vol] 56 U/L 35-104 [facility] Serum or plasma calcium lamine urement (mass/volume)Ordered By: Sara Matute on 02-26-2025 Calcium [Mass/Vol] 9.9 mg/dL 7.6-11.0 [facility] Serum or plasma urea nitroge n measurement (mass/volume)Ordered By: Sara Matute on 02-26-2025 Urea nitrogen [Mass/Vol] 10 mg/dL 4-19 [facility] Sodium levelOrdered By: Mazin Matute on 02-26-2025 Sodium [Moles/Vol] 140 mmol/L 133-145 [facility] Total proteinOrdered By: Deuce Matute on 02-26-2025 Protein [Mass/Vol] 6.8 g/dL 5.9-8.4 [facility] White blood cell (WBC) count Ordered By: Sara Matute on 02-26-2025 WBC (Bld) [#/Vol] 7.2 10*3/uL 4.4-11.0 [facility] Anion gap in Serum or Plasma Ordered By: Gaetano Tilley on 01-30-2025 Anion gap [Moles/Vol] 10 mmol/L 5- [facility] BUN/creatinine ratioOrdered By: Gaetano Tilley on 01-30-2025 Urea nitrogen/Creatinine [Mass ratio] 18.0 mg/mg 10- [facility] Basic Metabolic Profile (BMP )on 01-30-2025 BUN/CRE 18.0 RATIO Normal - [facility] Comment on above: Order Comment: Order Date: 10/24/24 Order Info: [id number] - CMP Order Info: [id number] - LIPID Order Date: 03/08/24 Order Info: [id number] - MG Order Info: [id number] - TSH Order Info: 3024-7 - T4F Performed By: #### L 506.0400, L500.4100, L501.9520, L506.1000, L500.4050, L100.0100 #### [facility] [address] [place] [address]. [place], [place], [address] Calcium [Mass/Vol] 9.3 mg/dL Normal 7.6-11.0 [facility] Comment on above: Order Comment: Order Date: 10/24/24 Order Info: [id number] - CMP Order Info: [id number] - LIPID Order Date: 03/08/24 Order Info: [id number] - MG Order Info: [id number] - TSH Order Info: 3024-7 - T4F Performed By: #### L 506.0400, L500.4100, L501.9520, L506.1000, L500.4050, L100.0100 #### [facility] [address] [place], [address] Chloride [Moles/Vol] 105 mmol/L Normal 98-108 [facility] Comment on above: Order Comment: Order Date: 10/24/24 Order Info: [id number] - CMP Order Info: [id number] - LIPID Order Date: 03/08/24 Order Info: [id number] - MG Order Info: [id number] - TSH Order Info: 3024-7 - T4F Performed By: #### L 506.0400, L500.4100, L501.9520, L506.1000, L500.4050, L100.0100 #### [facility] [address] [place], [address] CO2 [Moles/Vol] 25.6 mmol/L Normal 21.0-32.0 [facility] Comment on above: Order Comment: Order Date: 10/24/24 Order Info: 86-1 - CMP Order Info: [id number] - LIPID Order Date: 03/08/24 Order Info: [id number] - MG Order Info: [id number] - TSH Order Info: 3024-7 - T4F Performed By: #### L 506.0400, L500.4100, L501.9520, L506.1000, L500.4050, L100.0100 #### [facility] [address] [place], [address] Creatinine [Mass/Vol] 0.69 mg/dL Low 0.70-1.20 [facility] Comment on above: Order Comment: Order Date: 10/24/24 Order Info: [id number] - CMP Order Info: [id number] - LIPID Order Date: 03/08/24 Order Info: [id number] - MG Order Info: 3016-3 - TSH Order Info: 3024-7 - T4F Performed By: #### L 506.0400, L500.4100, L501.9520, L506.1000, L500.4050, L100.0100 #### [facility] [address] [place], [address] GAP 10 Normal 5-15 [facility] Comment on above: Order Comment: Order Date: 10/24/24 Order Info: 86-1 - CMP Order Info: [id number] - LIPID Order Date: 03/08/24 Order Info: [id number] - MG Order Info: [id number] - TSH Order Info: 7 - T4F Performed By: #### L 506.0400, L500.4100, L501.9520, L506.1000, L500.4050, L100.0100 #### [facility] [address] [place], [address] GFR/1.73 sq M.predicted among non-blacks MDRD (S/P/Bld) [Vol rate/Area] 95 mL/min/{1.73_m2} Normal >60 [facility] Comment on above: Order Comment: Order Date: 10/24/24 Order Info: 785-1 - CMP Order Info: [id number] - LIPID Order Date: 03/08/24 Order Info: [id number] - MG Order Info: 3 - TSH Order Info: 3024-05 - T4F Result Comment: mL/m in/1.73m2 CKD-EPI Creatinine Equation (2020) Performed By: #### L 506.0400, L500.4100, L501.9520, L506.1000, L500.4050, L100.0100 #### [facility] [address] [place], [address] Glucose [Mass/Vol] 88 mg/dL Normal 70-99 [facility] Comment on above: Order Comment: Order Date: 10/24/24 Order Info: [id number] - CMP Order Info: [id number] - LIPID Order Date: 03/08/24 Order Info: [id number] - MG Order Info: 3 - TSH Order Info: 3024-7 - T4F Performed By: #### L 506.0400, L500.4100, L501.9520, L506.1000, L500.4050, L100.0100 #### [facility] [address] [place], [address] Potassium [Moles/Vol] 4.2 mmol/L Normal 3.3-5.1 [facility] Comment on above: Order Comment: Order Date: 10/24/24 Order Info: [id number] - CMP Order Info: [id number] - LIPID Order Date: 03/08/24 Order Info: [id number] - MG Order Info: 6-3 - TSH Order Info: 3024-7 - T4F Performed By: #### L 506.0400, L500.4100, L501.9520, L506.1000, L500.4050, L100.0100 #### [facility] [address] [place], [address] Sodium [Moles/Vol] 141 mmol/L Normal 133-145 [facility] Comment on above: Order Comment: Order Date: 10/24/24 Order Info: 86-1 - CMP Order Info: [id number] - LIPID Order Date: 03/08/24 Order Info: [id number] - MG Order Info: 3016-3 - TSH Order Info: 3024-7 - T4F Performed By: #### L 506.0400, L500.4100, L501.9520, L506.1000, L500.4050, L100.0100 #### [facility] [address] [place], [address] Urea nitrogen [Mass/Vol] 12 mg/dL Normal 4-19 [facility] Comment on above: Order Comment: Order Date: 10/24/24 Order Info: [id number] - CMP Order Info: [id number] - LIPID Order Date: 03/08/24 Order Info: [id number] - MG Order Info: [id number] - TSH Order Info: 3024-7 - T4F Performed By: #### L 506.0400, L500.4100, L501.9520, L506.1000, L500.4050, L100.0100 #### [facility] [address] [place], [address] Carbon dioxide, total [Moles /volume] in Central venous bloodOrdered By: Gaetano Tilley on 01-30-2025 CO2 [Moles/Vol] 25.6 mmol/L 21.0-32.0 [facility] Chloride assayOrdered By: Ting Tilley on 01-30-2025 Chloride [Moles/Vol] 105 mmol/L 98-108 [facility] GFR/1.73 sq M.predicted mckinley g non-blacks MDRD (S/P/Bld) [Vol rate/Area]Ordered By: Gaetano Tilley on 01-30-2025 Estimated GFR (MDRD) Non-Af Amer 95 >60 [facility] Comment on above: mL/min/1.73m2 CKD-EP I Creatinine Equation (2020) Glomerular filtration rate ( GFR) estimation/1.73 sq m using serum, plasma, or whole bOrdered By: Gaetano Tilley on 01-30-2025 GFR/1.73 sq M.predicted among non-blacks MDRD (S/P/Bld) [Vol rate/Area] 95 mL/min/{1.73_m2} >60 [facility] Comment on above: mL/min/1.73m2 CKD-EP I Creatinine Equation (2020) Potassium (Unsp spec) [Mass/ Vol]Ordered By: Gaetano Tilley on 01-30-2025 Potassium [Moles/Vol] 4.2 mmol/L 3.3-5.1 [facility] Potassium measurement (mass/ volume)Ordered By: Gaetano Tilley on 01-30-2025 Potassium (Unsp spec) [Mass/Vol] 4.2 mmol/L 3.3-5.1 [facility] Serum creatinine measurement (mass/volume)Ordered By: Gaetano Tilley on 01-30-2025 Creatinine [Mass/Vol] 0.69 mg/dL Low 0.70-1.20 [facility] Serum glucose measurement (m ass/volume)Ordered By: Gaetano Tilley on 01-30-2025 Glucose [Mass/Vol] 88 mg/dL 70-99 [facility] Serum or plasma calcium lamine urement (mass/volume)Ordered By: Gaetano Tilley on 01-30-2025 Calcium [Mass/Vol] 9.3 mg/dL 7.6-11.0 [facility] Serum or plasma urea nitroge n measurement (mass/volume)Ordered By: Gaetano Tilley on 01-30-2025 Urea nitrogen [Mass/Vol] 12 mg/dL 4-19 [facility] Sodium levelOrdered By: Gaetano Tilley on 01-30-2025 Sodium [Moles/Vol] 141 mmol/L 133-145 [facility] Absolute neutrophil countOrd ered By: Gaetano Tilley on 01-22-2025 Neutrophils (Bld) [#/Vol] 2.5 10*3/uL 2.0-7.7 [facility] BUN/creatinine ratioOrdered By: Gaetano Tilley on 01-22-2025 Urea nitrogen/Creatinine [Mass ratio] 19.1 mg/mg 10-20 [facility] Basophil percentageOrdered B y: Gaetano Tilley on 01-22-2025 Basophils/100 WBC (Bld) 0.6 % 0-1 [facility] Bilirubin Test strip Ql (U)O rdered By: Gaetano Tilley on 01-22-2025 Bilirubin Ql (U) Negative Negative [facility] Bilirubin, totalOrdered By: Gaetano Tilley on 01-22-2025 Bilirubin [Mass/Vol] 0.47 mg/dL 0.00-1.30 [facility] CBC W/Diff, Automatedon 12-30 Absolute Lymph 1.65 X10 3/uL Normal 0.83-4.51 [facility] Comment on above: Performed By: #### L 506.0400, L500.4100, L501.9520, L506.1000, L500.4050, L100.0100 #### [facility] [address] [facility] [place], [place], [id number] Absolute Neut 2.5 X10 3/uL Normal 2.0-7.7 [facility] Comment on above: Performed By: #### L 506.0400, L500.4100, L501.9520, L506.1000, L500.4050, L100.0100 #### [facility] [address] [place], [address] Basophils/100 WBC (Bld) 0.6 % Normal 0-1 [facility] Comment on above: Performed By: #### L 506.0400, L500.4100, L501.9520, L506.1000, L500.4050, L100.0100 #### [facility] [address] [place], [address] Eosinophils/100 WBC (Bld) 2.6 % Normal 0-5 [facility] Comment on above: Performed By: #### L 506.0400, L500.4100, L501.9520, L506.1000, L500.4050, L100.0100 #### [facility] [address] [place], [address] Erythrocyte distribution width (RBC) [Ratio] 13.5 % Normal 11.6-14.6 [facility] Comment on above: Performed By: #### L 506.0400, L500.4100, L501.9520, L506.1000, L500.4050, L100.0100 #### [facility] [address] [place], [address] Hematocrit (Bld) [Volume fraction] 40.9 % Normal 37-47 [facility] Comment on above: Performed By: #### L 506.0400, L500.4100, L501.9520, L506.1000, L500.4050, L100.0100 #### [facility] [address] [place], [address] Hemoglobin (Bld) [Mass/Vol] 13.1 g/dL Normal 12.0-15.0 [facility] Comment on above: Performed By: #### L 506.0400, L500.4100, L501.9520, L506.1000, L500.4050, L100.0100 #### [facility] [address] [place], [address] IG% 0.400 Normal 0.0-0.9 [facility] Comment on above: Result Comment: IG% - Immature Granulocytes (promyelocytes, myelocytes and metamyelocytes) > 1% indicates that a LEFT SHIFT is Present. Performed By: #### L 506.0400, L500.4100, L501.9520, L506.1000, L500.4050, L100.0100 #### [facility] [address] [place], [address] Lymphocytes/100 WBC (Bld) 35.1 % Normal 19-41 [facility] Comment on above: Performed By: #### L 506.0400, L500.4100, L501.9520, L506.1000, L500.4050, L100.0100 #### [facility] [address] [place], [address] MCH (RBC) [Entitic mass] 32.7 pg High 27.0-32.0 [facility] Comment on above: Performed By: #### L 506.0400, L500.4100, L501.9520, L506.1000, L500.4050, L100.0100 #### [facility] [address] [place], [address] MCHC (RBC) [Mass/Vol] 32.0 g/dL Normal 32-36 [facility] Comment on above: Performed By: #### L 506.0400, L500.4100, L501.9520, L506.1000, L500.4050, L100.0100 #### [facility] [address] [place], [address] MCV (RBC) [Entitic vol] 102.0 fL High 81-99 [facility] Comment on above: Performed By: #### L 506.0400, L500.4100, L501.9520, L506.1000, L500.4050, L100.0100 #### [facility] [address] [place], [address] Monocytes/100 WBC (Bld) 8.3 % Normal 0-10 [facility] Comment on above: Performed By: #### L 506.0400, L500.4100, L501.9520, L506.1000, L500.4050, L100.0100 #### [facility] [address] [place], [address] Neutrophils/100 WBC (Bld) 53.0 % Normal 47-70 [facility] Comment on above: Performed By: #### L 506.0400, L500.4100, L501.9520, L506.1000, L500.4050, L100.0100 #### [facility] [address] [place], [address] Nucleated RBC (Bld) [#/Vol] 0 10*3/uL Normal 0-5 [facility] Comment on above: Performed By: #### L 506.0400, L500.4100, L501.9520, L506.1000, L500.4050, L100.0100 #### [facility] [address] [place], [address] Platelet mean volume (Bld) [Entitic vol] 10.0 fL Normal 6.2-12.0 [facility] Comment on above: Performed By: #### L 506.0400, L500.4100, L501.9520, L506.1000, L500.4050, L100.0100 #### [facility] [address] [place], [address] Platelets (Bld) [#/Vol] 254 10*3/uL Normal 150-450 [facility] Comment on above: Performed By: #### L 506.0400, L500.4100, L501.9520, L506.1000, L500.4050, L100.0100 #### [facility] [address] [place], [address] RBC (Bld) [#/Vol] 4.01 10*6/uL Low 4.2-5.4 [facility] Comment on above: Performed By: #### L 506.0400, L500.4100, L501.9520, L506.1000, L500.4050, L100.0100 #### [facility] [address] [place], [address] RDW SD 50.6 fl High 35.1-43.9 [facility] Comment on above: Performed By: #### L 506.0400, L500.4100, L501.9520, L506.1000, L500.4050, L100.0100 #### [facility] [address] [place], [address] WBC (Bld) [#/Vol] 4.7 10*3/uL Normal 4.4-11.0 [facility] Comment on above: Performed By: #### L 506.0400, L500.4100, L501.9520, L506.1000, L500.4050, L100.0100 #### [facility] [address] [place], [address] Cholesterol in VLDL [Mass/Vo l]Ordered By: Gaetano Tilley on 01-22-2025 VLDL Cholesterol 19 mg/dL 5-40 [facility] Comprehensive Metabolic Prof ilon 01-22-2025 Albumin [Mass/Vol] 4.1 g/dL Normal 3.4-4.8 [facility] Comment on above: Performed By: #### L 506.0400, L500.4100, L501.9520, L506.1000, L500.4050, L100.0100 #### [facility] [address] [place], [address] Albumin/Globulin [Mass ratio] 1.4 {ratio} Normal 0.9-2.4 [facility] Comment on above: Performed By: #### L 506.0400, L500.4100, L501.9520, L506.1000, L500.4050, L100.0100 #### [facility] [address] [place], [address] ALK PHOS 92 U/L Normal 35-104 [facility] Comment on above: Performed By: #### L 506.0400, L500.4100, L501.9520, L506.1000, L500.4050, L100.0100 #### [facility] [address] [place], [address] ALT [Catalytic activity/Vol] 22 U/L Normal <=34 [facility] Comment on above: Performed By: #### L 506.0400, L500.4100, L501.9520, L506.1000, L500.4050, L100.0100 #### [facility] [address] [place], [address] Anion gap [Moles/Vol] 10 mmol/L Normal 5-15 [facility] Comment on above: Performed By: #### L 506.0400, L500.4100, L501.9520, L506.1000, L500.4050, L100.0100 #### [facility] [address] [place], [address] AST [Catalytic activity/Vol] 25 U/L Normal <=31 [facility] Comment on above: Performed By: #### L 506.0400, L500.4100, L501.9520, L506.1000, L500.4050, L100.0100 #### [facility] [address] [place], [address] Bilirubin [Mass/Vol] 0.47 mg/dL Normal 0.00-1.30 [facility] Comment on above: Performed By: #### L 506.0400, L500.4100, L501.9520, L506.1000, L500.4050, L100.0100 #### [facility] [address] [place], [address] BUN/CRE 19.1 RATIO Normal 10-20 [facility] Comment on above: Performed By: #### L 506.0400, L500.4100, L501.9520, L506.1000, L500.4050, L100.0100 #### [facility] [address] [place], [address] Calcium [Mass/Vol] 9.4 mg/dL Normal 7.6-11.0 [facility] Comment on above: Performed By: #### L 506.0400, L500.4100, L501.9520, L506.1000, L500.4050, L100.0100 #### [facility] [address] [place], [address] Chloride [Moles/Vol] 110 mmol/L High 96-108 [facility] Comment on above: Performed By: #### L 506.0400, L500.4100, L501.9520, L506.1000, L500.4050, L100.0100 #### [facility] [address] [place], [address] CO2 [Moles/Vol] 20.7 mmol/L Low 22.0-29.0 [facility] Comment on above: Performed By: #### L 506.0400, L500.4100, L501.9520, L506.1000, L500.4050, L100.0100 #### [facility] [address] [place], [address] Creatinine [Mass/Vol] 1.2 mg/dL High 0.6-1.0 [facility] Comment on above: Performed By: #### L 506.0400, L500.4100, L501.9520, L506.1000, L500.4050, L100.0100 #### [facility] [address] [place], [address] GFR/1.73 sq M.predicted among non-blacks MDRD (S/P/Bld) [Vol rate/Area] 52 mL/min/{1.73_m2} Low >60 [facility] Comment on above: Result Comment: mL/m in/1.73m2 CKD-EPI Creatinine Equation (2020) Performed By: #### L 506.0400, L500.4100, L501.9520, L506.1000, L500.4050, L100.0100 #### [facility] [address] [place], [address] Globulin (S) [Mass/Vol] 2.9 g/dL Normal 2.2-4.2 [facility] Comment on above: Performed By: #### L 506.0400, L500.4100, L501.9520, L506.1000, L500.4050, L100.0100 #### [facility] [address] [place], [address] Glucose [Mass/Vol] 74 mg/dL Normal 70-99 [facility] Comment on above: Performed By: #### L 506.0400, L500.4100, L501.9520, L506.1000, L500.4050, L100.0100 #### [facility] [address] [place], [address] Potassium [Moles/Vol] 4.3 mmol/L Normal 3.3-5.1 [facility] Comment on above: Performed By: #### L 506.0400, L500.4100, L501.9520, L506.1000, L500.4050, L100.0100 #### [facility] [address] [place], [address] Sodium [Moles/Vol] 141 mmol/L Normal 133-145 [facility] Comment on above: Performed By: #### L 506.0400, L500.4100, L501.9520, L506.1000, L500.4050, L100.0100 #### [facility] [address] [place], [address] T PROT 7.0 g/dL Normal 5.9-8.4 [facility] Comment on above: Performed By: #### L 506.0400, L500.4100, L501.9520, L506.1000, L500.4050, L100.0100 #### [facility] [address] [place], [address] Urea nitrogen [Mass/Vol] 22 mg/dL High 4-19 [facility] Comment on above: Performed By: #### L 506.0400, L500.4100, L501.9520, L506.1000, L500.4050, L100.0100 #### [facility] [address] [place], [address] ALB Normal 3.2-5.0 [facility] Comment on above: Result Comment: SHOSHANA VU Performed By: #### L 506.0400, L500.4100, L501.9520, L506.1000, L500.4050, L100.0100 #### [facility] [address] [place], [address] ALK PHOS Normal 45-117 [facility] Comment on above: Result Comment: SHOSHANA VU Performed By: #### L 506.0400, L500.4100, L501.9520, L506.1000, L500.4050, L100.0100 #### [facility] [address] [place], [address] ALT Normal 13-56 [facility] Comment on above: Result Comment: REOR DERED Performed By: #### L 506.0400, L500.4100, L501.9520, L506.1000, L500.4050, L100.0100 #### [facility] [address] [place], [address] AST Normal 15-37 [facility] Comment on above: Result Comment: REOR DERED Performed By: #### L 506.0400, L500.4100, L501.9520, L506.1000, L500.4050, L100.0100 #### [facility] [address] [place], [address] BUN Normal 4-19 [facility] Comment on above: Result Comment: REOR DERED Performed By: #### L 506.0400, L500.4100, L501.9520, L506.1000, L500.4050, L100.0100 #### [facility] [address] [place], [address] BUN/CRE Normal 10-20 [facility] Comment on above: Result Comment: REOR DERED Performed By: #### L 506.0400, L500.4100, L501.9520, L506.1000, L500.4050, L100.0100 #### [facility] [address] [place], [address] Calcium Normal 8.5-10.1 [facility] Comment on above: Result Comment: REOR DERED Performed By: #### L 506.0400, L500.4100, L501.9520, L506.1000, L500.4050, L100.0100 #### [facility] [address] [place], [address] CL Normal 98-107 [facility] Comment on above: Result Comment: REOR DERED Performed By: #### L 506.0400, L500.4100, L501.9520, L506.1000, L500.4050, L100.0100 #### [facility] [address] [place], [address] CO2 Normal 21.0-32.0 [facility] Comment on above: Result Comment: REOR DERED Performed By: #### L 506.0400, L500.4100, L501.9520, L506.1000, L500.4050, L100.0100 #### [facility] [address] [place], [address] CREAT,SERUM Normal 0.6-1.0 [facility] Comment on above: Result Comment: REOR DERED Performed By: #### L 506.0400, L500.4100, L501.9520, L506.1000, L500.4050, L100.0100 #### [facility] [address] [place], [address] eGFR Normal >60 [facility] Comment on above: Result Comment: REOR DERED Performed By: #### L 506.0400, L500.4100, L501.9520, L506.1000, L500.4050, L100.0100 #### [facility] [address] [place], [address] GAP Normal 5-15 [facility] Comment on above: Result Comment: REOR DERED Performed By: #### L 506.0400, L500.4100, L501.9520, L506.1000, L500.4050, L100.0100 #### [facility] [address] [place], [address] GLU Normal 70-99 [facility] Comment on above: Result Comment: REOR DERED Performed By: #### L 506.0400, L500.4100, L501.9520, L506.1000, L500.4050, L100.0100 #### [facility] [address] [place], [address] Potassium Normal 3.5-5.1 [facility] Comment on above: Result Comment: REOR DERED Performed By: #### L 506.0400, L500.4100, L501.9520, L506.1000, L500.4050, L100.0100 #### [facility] [address] [place], [address] T BILI Normal 0.20-1.00 [facility] Comment on above: Result Comment: REOR DERED Performed By: #### L 506.0400, L500.4100, L501.9520, L506.1000, L500.4050, L100.0100 #### [facility] [address] [place], [address] T PROT Normal 6.4-8.2 [facility] Comment on above: Result Comment: REOR DERED Performed By: #### L 506.0400, L500.4100, L501.9520, L506.1000, L500.4050, L100.0100 #### [facility] [address] [place], [address] Comprehensive Metabolic Profil Normal 136-145 [facility] Comment on above: Result Comment: REOR DERED Performed By: #### L 506.0400, L500.4100, L501.9520, L506.1000, L500.4050, L100.0100 #### [facility] [address] [place], [address] Creatinine [Moles/Vol]Ordere d By: Gaetano Tilley on 01-22-2025 Creatinine [Mass/Vol] 1.2 mg/dL High 0.6-1.0 [facility] Eosinophil percentageOrdered By: Gaetano Tilley on 01-22-2025 Eosinophils/100 WBC (Bld) 2.6 % 0-5 [facility] Epithelial cells.squamous LM Ql (Urine sed)Ordered By: Gaetano Tilley on 01-22-2025 Epithelial cells.squamous LM.HPF (Urine sed) [#/Area] 0 /[HPF] 5-10 [facility] Erythrocyte distribution wid th ratioOrdered By: Gaetano Tilley on 01-22-2025 Erythrocyte distribution width (RBC) [Ratio] 13.5 % 11.6-14.6 [facility] Erythrocyte distribution wid th standard deviationOrdered By: Gaetano Tilley on 01-22-2025 Erythrocyte distribution width (RBC) [Entitic vol] 50.6 fL High 35.1-43.9 [facility] GFR/1.73 sq M.predicted mckinley g non-blacks MDRD (S/P/Bld) [Vol rate/Area]Ordered By: Gaetano Tilley on 01-22-2025 Estimated GFR (MDRD) Non-Af Amer 52 Low >60 [facility] Comment on above: mL/min/1.73m2 CKD-EP I Creatinine Equation (2020) Glucose Ql (U)Ordered By: Ting Tilley on 01-22-2025 Urine Glucose (UA) Normal mg/dl Normal [facility] Hematocrit Auto (Bld) [Volum e fraction]Ordered By: Gaetano Tilley on 01-22-2025 Hematocrit (Bld) [Volume fraction] 40.9 % 37-47 [facility] Hemoglobin measurementOrdere d By: Gaetano Tilley on 01-22-2025 Hemoglobin (Bld) [Mass/Vol] 13.1 g/dL 12.0-15.0 [facility] Immature granulocytes/100 WB C Auto (Bld)Ordered By: Gaetano Tilley on 01-22-2025 Immature granulocytes/100 WBC (Bld) 0.400 % 0.0-0.9 [facility] Comment on above: IG% - Immature Granu locytes (promyelocytes, myelocytes and metamyelocytes) > 1% indicates that a LEFT SHIFT is Present. Ketones Test strip Ql (U)Ord ered By: Gaetano Tilley on 01-22-2025 Ketones Ql (U) Negative Negative [facility] L506.1001on 01-22-2025 Vitamin D 25-OH 18.5 ng/mL Low 30-100 [facility] Comment on above: Result Comment: Libby min D Status Deficiency: <20 ng/mL (50nmol/L) Insufficiency: 20-30 ng/mL (50-75 nmol/L) Sufficiency: 30-100 ng/mL (75-250 nmol/L) Toxicity: >100 ng/mL (>250 nmol/L) Performed By: #### L 506.0400, L500.4100, L501.9520, L506.1000, L500.4050, L100.0100 #### [facility] [address] [place], [address] Laboratory - Chemistry and C hemistry - challengeOrdered By: Gaetano Tilley on 01-22-2025 AST [Catalytic activity/Vol] 25 U/L <32 [facility] Lipid Profileon 01-22-2025 Cholesterol in LDL [Mass/Vol] 169 mg/dL High 0-130 [facility] Comment on above: Performed By: #### L 506.0400, L500.4100, L501.9520, L506.1000, L500.4050, L100.0100 #### [facility] [address] [place], [address] HDL Normal [facility] Comment on above: Result Comment: REOR DERED The drugs N-Acetylcysteine and Metamizole may falsely depress this assay. Performed By: #### L 506.0400, L500.4100, L501.9520, L506.1000, L500.4050, L100.0100 #### [facility] [address] [place], [address] TRIG Normal [facility] Comment on above: Result Comment: REOR DERED The drugs N-Acetylcysteine and Metamizole may falsely depress this assay. Performed By: #### L 506.0400, L500.4100, L501.9520, L506.1000, L500.4050, L100.0100 #### [facility] [address] [place], [address] CHOL Normal 200 [facility] Comment on above: Result Comment: REOR DERED Performed By: #### L 506.0400, L500.4100, L501.9520, L506.1000, L500.4050, L100.0100 #### [facility] [address] [place], [address] LDL Normal 0-130 [facility] Comment on above: Result Comment: REOR DERED Performed By: #### L 506.0400, L500.4100, L501.9520, L506.1000, L500.4050, L100.0100 #### [facility] [address] [place], [address] VLDL Normal 5-40 [facility] Comment on above: Result Comment: REOR APARNAD Performed By: #### L 506.0400, L500.4100, L501.9520, L506.1000, L500.4050, L100.0100 #### [facility] [address] [place], [address] Low density lipoprotein (LDL ) cholesterol measurementOrdered By: Gaetano Tilley on 01-22-2025 Cholesterol in LDL [Mass/Vol] 169 mg/dL High 0-130 [facility] Lymphocytes Auto (Unsp spec) [#/Vol]Ordered By: Gaetano Tilley on 01-22-2025 Lymphocytes (Bld) [#/Vol] 1.65 10*3/uL 0.83-4.51 [facility] Lymphocytes/100 WBC Auto (Un sp spec)Ordered By: Gaetano Tilley on 01-22-2025 Lymphocytes/100 WBC (Bld) 35.1 % 19-41 [facility] MCV (mean corpuscular volume ) determinationOrdered By: Gaetano Tilley on 01-22-2025 MCV (RBC) [Entitic vol] 102.0 fL High 81-99 [facility] Mean corpuscular hemoglobin (MCH) determinationOrdered By: Gaetano Tilley on 01-22-2025 MCH (RBC) [Entitic mass] 32.7 pg High 27.0-32.0 [facility] Mean corpuscular hemoglobin concentration (MCHC) determinationOrdered By: Gaetano Tilley on 01-22-2025 MCHC (RBC) [Mass/Vol] 32.0 g/dL 32-36 [facility] Mean platelet volume determi nationOrdered By: Gaetano Tilley on 01-22-2025 Platelet mean volume (Bld) [Entitic vol] 10.0 fL 6.2-12.0 [facility] Microscopic analysis of urin e for red blood cells (RBC)Ordered By: Gaetano Tilley on 01-22-2025 Urine RBC 0 SEEN /hpf 0-5 [facility] Monocyte percentageOrdered B y: Gaetano Tilley on 01-22-2025 Monocytes/100 WBC (Bld) 8.3 % 0-10 [facility] Mucus LM Ql (Urine sed)Order ed By: Gaetano Tilley on 01-22-2025 Mucus Ql (Urine sed) 0 SEEN /hpf [facility] Neutrophil percentageOrdered By: Gaetano Tilley on 01-22-2025 Neutrophils/100 WBC (Bld) 53.0 % 47-70 [facility] Nitrite Test strip Ql (U)Ord ered By: Gaetano Tilley on 01-22-2025 Nitrite Ql (U) Negative Negative [facility] No Panel InformationOrdered By: Gaetano Tilley on 01-22-2025 Vitamin D 25-Hydroxy 18.5 ng/mL Low 30-100 [facility] Comment on above: Vitamin D StatusDefi ciency: <20 ng/mL (50nmol/L)Insufficiency: 20-30 ng/mL (50-75 nmol/L)Sufficiency: 30-100 ng/mL (75-250 nmol/L)Toxicity: >100 ng/mL (>250 nmol/L) Nucleated red blood cell per centageOrdered By: Gaetano Tilley on 01-22-2025 Nucleated RBC/100 WBC (Bld) [Ratio] 0 % 0-5 [facility] Platelet countOrdered By: Ting Tilley on 01-22-2025 Platelets (Bld) [#/Vol] 254 10*3/uL 150-450 [facility] Protein Test strip Ql (U)Ord ered By: Gaetano Tilley on 01-22-2025 Protein Ql (U) Negative Negative [facility] RBC Auto (Bld) [#/Vol]Ordere d By: Gaetano Tilley on 01-22-2025 RBC (Bld) [#/Vol] 4.01 10*6/uL Low 4.2-5.4 [facility] Serum globulin measurementOr dered By: Gaetano Tilley on 01-22-2025 Globulin (S) [Mass/Vol] 2.9 g/dL 2.2-4.2 [facility] Serum glucose measurement (m ass/volume)Ordered By: Gaetano Tilley on 01-22-2025 Glucose [Mass/Vol] 74 mg/dL 70-99 [facility] Serum or plasma alanine parkinson otransferase (ALT) measurementOrdered By: Gaetano Tilley on 01-22-2025 ALT [Catalytic activity/Vol] 22 U/L <35 [facility] Serum or plasma albumin lamine urement (mass/volume)Ordered By: Gaetano Tilley on 01-22-2025 Albumin [Mass/Vol] 4.1 g/dL 3.4-4.8 [facility] Serum or plasma albumin/glob ulin mass ratioOrdered By: Gaetano Tilley on 01-22-2025 Albumin/Globulin [Mass ratio] 1.4 {ratio} 0.9-2.4 [facility] Serum or plasma alkaline heike sphatase measurementOrdered By: Gaetano Tilley on 01-22-2025 ALP [Catalytic activity/Vol] 92 U/L 35-104 [facility] Serum or plasma anion gap de termination (moles/volume)Ordered By: Gaetano Tilley on 01-22-2025 Anion gap [Moles/Vol] 10 mmol/L 5-15 [facility] Serum or plasma calcium lamine urement (mass/volume)Ordered By: Gaetano Tilley on 01-22-2025 Calcium [Mass/Vol] 9.4 mg/dL 7.6-11.0 [facility] Serum or plasma cholesterol in HDL measurement (mass/volume)Ordered By: Gaetano Tilley on 01-22-2025 Cholesterol in HDL [Mass/Vol] 55 mg/dL >40 [facility] Comment on above: The drugs N-Acetylcy [...] 01-22-2025 Cholesterol [Mass/Vol] 243 mg/dL High <201 [facility] Comment on above: Cholesterol level, D esirable <200 mg/dLBorderline high cholesterol 200-239 mg/dLHigh cholesterol >=240 mg/dLRecommendations of the NCEP Adult Treatment Panel for the following risk-cutoff thresholds for the [place] population. Serum or plasma potassium me asurementOrdered By: Gaetano Tilley on 01-22-2025 Potassium [Moles/Vol] 4.3 mmol/L 3.3-5.1 [facility] Serum or plasma sodium measu rement (moles/volume)Ordered By: Gaetano Tilley on 01-22-2025 Sodium [Moles/Vol] 141 mmol/L 133-145 [facility] Serum or plasma urea nitroge n measurement (mass/volume)Ordered By: Gaetano Tilley on 01-22-2025 Urea nitrogen [Mass/Vol] 22 mg/dL High 4-19 [facility] T4 Free Directon 01-22-2025 T4 FREE DIRECT 1.10 ng/dL Normal 0.76-1.46 [facility] Comment on above: Performed By: #### L 506.0400, L500.4100, L501.9520, L506.1000, L500.4050, L100.0100 #### [facility] [address] [place], [address] T4 freeOrdered By: Gaetano hu on 01-22-2025 Free T4 [Mass/Vol] 1.10 ng/dL 0.76-1.46 [facility] TSH DL <= 0.005 mIU/L QnOrde red By: Gaetano Tilley on 01-22-2025 Thyroid Stimulating Hormone (TSH) 3.260 uIU/mL 0.300-4.200 [facility] Thyroid Stim Hormone (TSH)on 01-22-2025 TSH 3.260 uIU/mL Normal 0.300-4.200 [facility] Comment on above: Performed By: #### L 506.0400, L500.4100, L501.9520, L506.1000, L500.4050, L100.0100 #### [facility] [address] [place], [place], [id number] Total proteinOrdered By: Venkat Tilley on 01-22-2025 Protein [Mass/Vol] 7.0 g/dL 5.9-8.4 [facility] Triglycerides measurementOrd ered By: Gaetano Tilley on 01-22-2025 Triglyceride [Mass/Vol] 95 mg/dL <199 [facility] Comment on above: The drugs N-Acetylcy steine and Metamizole may falsely depress this assay. Normal range: <150 mg/dLBorderline High: 150-199 mg/dLHigh: 200-499 mg/dLVery High: >500 mg/dL Urinalysis, Completeon 01-22 RBC 0 SEEN Normal 0-5 [facility] Comment on above: Order Comment: Order Date: 10/24/24 Order Info: [id number] - CMP Order Info: [id number] - LIPID Order Date: 03/08/24 Order Info: [id number] - MG Order Info: [id number] - TSH Order Info: [id number] - T4F Performed By: #### L 506.0400, L500.4100, L501.9520, L506.1000, L500.4050, L100.0100 #### [facility] [address] [place], [place], [id number] WBC 0-5 SEEN Normal 0-5 [facility] Comment on above: Order Comment: Order Date: 10/24/24 Order Info: [id number] - CMP Order Info: [id number] - LIPID Order Date: 03/08/24 Order Info: [id number] - MG Order Info: [id number] - TSH Order Info: [id number] - T4F Performed By: #### L 506.0400, L500.4100, L501.9520, L506.1000, L500.4050, L100.0100 #### [facility] [address] [place], [address] BACTERIA 0 SEEN Normal None Seen [facility] Comment on above: Order Comment: Order Date: 10/24/24 Order Info: 86-1 - CMP Order Info: [id number] - LIPID Order Date: 03/08/24 Order Info: [id number] - MG Order Info: [id number] - TSH Order Info: 3024-7 - T4F Performed By: #### L 506.0400, L500.4100, L501.9520, L506.1000, L500.4050, L100.0100 #### [facility] [address] [place], [address] EPI,SQUAMOUS 0 SEEN Normal 5-10 [facility] Comment on above: Order Comment: Order Date: 10/24/24 Order Info: [id number] - CMP Order Info: [id number] - LIPID Order Date: 03/08/24 Order Info: [id number] - MG Order Info: [id number] - TSH Order Info: 3024-7 - T4F Performed By: #### L 506.0400, L500.4100, L501.9520, L506.1000, L500.4050, L100.0100 #### [facility] [address] [place], [address] Mucus Ql (Urine sed) 0 SEEN Normal [facility] Comment on above: Order Comment: Order Date: 10/24/24 Order Info: [id number] - CMP Order Info: [id number] - LIPID Order Date: 03/08/24 Order Info: [id number] - MG Order Info: [id number] - TSH Order Info: [id number] - T4F Performed By: #### L 506.0400, L500.4100, L501.9520, L506.1000, L500.4050, L100.0100 #### [facility] [place], [address] Urine blood detectionOrdered By: Gaetano Tilley on 01-22-2025 Urine Occult Blood Negative Negative [facility] Urine clarityOrdered By: Venkat Tilley on 01-22-2025 Clarity (U) Clear Clear [facility] Urine color determinationOrd ered By: Gaetano Tilley on 01-22-2025 Color (U) Yellow Yellow [facility] Urine leukocyte esterase det ection by dipstickOrdered By: Gaetano Tilley on 01-22-2025 Leukocyte esterase Test strip Ql (U) 25 /ul High Negative [facility] Urine pHOrdered By: Gaetano wilkerson on 01-22-2025 pH (U) 7.0 [pH] 5.0 - 8.0 [facility] Urine sediment bacteria coun t by microscopy (number/high power field)Ordered By: Gaetano Tilley on 01-22-2025 Bacteria LM.HPF (Urine sed) [#/Area] 0 /[HPF] None Seen [facility] Urine specific gravity measu rementOrdered By: Gaetano Tilley on 01-22-2025 Specific gravity (U) [Rel density] 1.010 1.002-1.030 [facility] Urobilinogen Ql (U)Ordered B y: Gaetano Tilley on 01-22-2025 Urine Urobilinogen Normal mg/dl Normal [facility] White blood cell (WBC) count Ordered By: Gaetano Tilley on 01-22-2025 WBC (Bld) [#/Vol] 4.7 10*3/uL 4.4-11.0 [facility] White blood cell countOrdere d By: Gaetano Tilley on 01-22-2025 Urine WBC 0-5 SEEN /hpf 0-5 [facility] 79-PE-Vvxfuva DOrdered By: Valorie Tilley on 12-27-2024 Vitamin D 25-Hydroxy 38.9 ng/mL [facility] Comment on above: Vitamin D 25(OH) Sta tus Range Deficiency <20 ng/mL (50nmol/L) Insufficiency 20 - 30 ng/mL (50 - 75 nmol/L) Sufficiency 30 - 100 ng/mL (75 - 250 nmol/L) Toxicity >100 ng/mL (>250 nmol/L) Absolute neutrophil countOrd ered By: Gaetano Tilley on 12-27-2024 Neutrophils (Bld) [#/Vol] 1.4 10*3/uL Low 2.0-7.7 [facility] Albumin to globulin ratioOrd ered By: Gaetano Tilley on 12-27-2024 Albumin/Globulin [Mass ratio] 1.3 {ratio} 0.9-2.4 [facility] Basophil percentageOrdered B y: Gaetano Tilley on 12-27-2024 Basophils/100 WBC (Bld) 0.9 % 0-1 [facility] Bilirubin, totalOrdered By: Gaetano Tilley on 12-27-2024 Bilirubin [Mass/Vol] 0.50 mg/dL 0.20-1.00 [facility] Comment on above: For patients on eltr ombopag therapy, use of Dimension [place] TBIL is not recommended. Blood urea nitrogen (BUN)/cr eatinine ratioOrdered By: Gaetano Tilley on 12-27-2024 Urea nitrogen/Creatinine [Mass ratio] 18.0 mg/mg 10-20 [facility] CBC W/Diff, Automatedon 11-30 Absolute Lymph 1.67 X10 3/uL Normal 0.83-4.51 [facility] Comment on above: Order Comment: Order Date: 10/24/24 Order Info: [id number] - CBCD Performed By: #### L 506.0400, L500.4100, L501.9520, L506.1000, L500.4050, L100.0100 #### [facility] [address] [place], [address] Absolute Neut 1.4 X10 3/uL Low 2.0-7.7 [facility] Comment on above: Order Comment: Order Date: 10/24/24 Order Info: [id number] - CBCD Performed By: #### L 506.0400, L500.4100, L501.9520, L506.1000, L500.4050, L100.0100 #### [facility] [address] [place], [address] Basophils/100 WBC (Bld) 0.9 % Normal 0-1 [facility] Comment on above: Order Comment: Order Date: 10/24/24 Order Info: [id number]- - CBCD Performed By: #### L 506.0400, L500.4100, L501.9520, L506.1000, L500.4050, L100.0100 #### [facility] [address] [place], [address] Eosinophils/100 WBC (Bld) 1.5 % Normal 0-5 [facility] Comment on above: Order Comment: Order Date: 10/24/24 Order Info: [id number]- - CBCD Performed By: #### L 506.0400, L500.4100, L501.9520, L506.1000, L500.4050, L100.0100 #### [facility] [address] [place], [address] Erythrocyte distribution width (RBC) [Ratio] 13.4 % Normal 11.6-14.6 [facility] Comment on above: Order Comment: Order Date: 10/24/24 Order Info: [id number] - CBCD Performed By: #### L 506.0400, L500.4100, L501.9520, L506.1000, L500.4050, L100.0100 #### [facility] [address] [place], [address] Hematocrit (Bld) [Volume fraction] 40.1 % Normal 37-47 [facility] Comment on above: Order Comment: Order Date: 10/24/24 Order Info: [id number] - CBCD Performed By: #### L 506.0400, L500.4100, L501.9520, L506.1000, L500.4050, L100.0100 #### [facility] [address] [place], [address] Hemoglobin (Bld) [Mass/Vol] 13.0 g/dL Normal 12.0-15.0 [facility] Comment on above: Order Comment: Order Date: 10/24/24 Order Info: [id number] - CBCD Performed By: #### L 506.0400, L500.4100, L501.9520, L506.1000, L500.4050, L100.0100 #### [facility] [address] [place], [address] IG% 0.000 Normal 0.0-0.9 [facility] Comment on above: Order Comment: Order Date: 10/24/24 Order Info: [id number]- - CBCD Result Comment: IG% - Immature Granulocytes (promyelocytes, myelocytes and metamyelocytes) > 1% indicates that a LEFT SHIFT is Present. Performed By: #### L 506.0400, L500.4100, L501.9520, L506.1000, L500.4050, L100.0100 #### [facility] [address] [place], [address] Lymphocytes/100 WBC (Bld) 49.0 % High 19-41 [facility] Comment on above: Order Comment: Order Date: 10/24/24 Order Info: [id number] - CBCD Performed By: #### L 506.0400, L500.4100, L501.9520, L506.1000, L500.4050, L100.0100 #### [facility] [address] [place], [address] MCH (RBC) [Entitic mass] 32.7 pg High 27.0-32.0 [facility] Comment on above: Order Comment: Order Date: 10/24/24 Order Info: [id number]- - CBCD Performed By: #### L 506.0400, L500.4100, L501.9520, L506.1000, L500.4050, L100.0100 #### [facility] [address] [place], [address] MCHC (RBC) [Mass/Vol] 32.4 g/dL Normal 32-36 [facility] Comment on above: Order Comment: Order Date: 10/24/24 Order Info: 018- - CBCD Performed By: #### L 506.0400, L500.4100, L501.9520, L506.1000, L500.4050, L100.0100 #### [facility] [address] [facility] [place], [address] MCV (RBC) [Entitic vol] 101.0 fL High 81-99 [facility] Comment on above: Order Comment: Order Date: 10/24/24 Order Info: 018- - CBCD Performed By: #### L 506.0400, L500.4100, L501.9520, L506.1000, L500.4050, L100.0100 #### [facility] [address] [place], [address] Monocytes/100 WBC (Bld) 8.8 % Normal 0-10 [facility] Comment on above: Order Comment: Order Date: 10/24/24 Order Info: 018- - CBCD Performed By: #### L 506.0400, L500.4100, L501.9520, L506.1000, L500.4050, L100.0100 #### [facility] [address] [facility] [place], [address] Neutrophils/100 WBC (Bld) 39.8 % Low 47-70 [facility] Comment on above: Order Comment: Order Date: 10/24/24 Order Info: 0184- - CBCD Performed By: #### L 506.0400, L500.4100, L501.9520, L506.1000, L500.4050, L100.0100 #### [facility] [address] [place], [address] Nucleated RBC (Bld) [#/Vol] 0 10*3/uL Normal 0-5 [facility] Comment on above: Order Comment: Order Date: 10/24/24 Order Info: [id number] - CBCD Performed By: #### L 506.0400, L500.4100, L501.9520, L506.1000, L500.4050, L100.0100 #### [facility] [address] [place], [address] Platelet mean volume (Bld) [Entitic vol] 9.8 fL Normal 6.2-12.0 [facility] Comment on above: Order Comment: Order Date: 10/24/24 Order Info: [id number] - CBCD Performed By: #### L 506.0400, L500.4100, L501.9520, L506.1000, L500.4050, L100.0100 #### [facility] [address] [place], [address] Platelets (Bld) [#/Vol] 247 10*3/uL Normal 150-450 [facility] Comment on above: Order Comment: Order Date: 10/24/24 Order Info: [id number] - CBCD Performed By: #### L 506.0400, L500.4100, L501.9520, L506.1000, L500.4050, L100.0100 #### [facility] [address] [place], [address] RBC (Bld) [#/Vol] 3.97 10*6/uL Low 4.2-5.4 [facility] Comment on above: Order Comment: Order Date: 10/24/24 Order Info: [id number] - CBCD Performed By: #### L 506.0400, L500.4100, L501.9520, L506.1000, L500.4050, L100.0100 #### [facility] [address] [place], [address] RDW SD 50.0 fl High 35.1-43.9 [facility] Comment on above: Order Comment: Order Date: 10/24/24 Order Info: [id number]- - CBCD Performed By: #### L 506.0400, L500.4100, L501.9520, L506.1000, L500.4050, L100.0100 #### [facility] [address] [place], [address] WBC (Bld) [#/Vol] 3.4 10*3/uL Low 4.4-11.0 [facility] Comment on above: Order Comment: Order Date: 10/24/24 Order Info: [id number] - CBCD Performed By: #### L 506.0400, L500.4100, L501.9520, L506.1000, L500.4050, L100.0100 #### [facility] [address] [place], [address] Carbon dioxide measurementOr dered By: Gaetano Tilley on 12-27-2024 CO2 [Moles/Vol] 29.0 mmol/L 21.0-32.0 [facility] Chloride measurementOrdered By: Gaetano Tilley on 12-27-2024 Chloride [Moles/Vol] 108 mmol/L High 98-107 [facility] Comprehensive Metabolic Prof ilon 12-27-2024 Albumin [Mass/Vol] 3.9 g/dL Normal 3.2-5.0 [facility] Comment on above: Order Comment: Order Date: 10/24/24 Order Info: 0786-1 - CMP Order Info: [id number] - LIPID Order Date: 03/08/24 Order Info: [id number] - MG Order Info: 3016-3 - TSH Order Info: 3024-7 - T4F Performed By: #### L 506.0400, L500.4100, L501.9520, L506.1000, L500.4050, L100.0100 #### [facility] [address] [place], [address] Albumin/Globulin [Mass ratio] 1.3 {ratio} Normal 0.9-2.4 [facility] Comment on above: Order Comment: Order Date: 10/24/24 Order Info: 0786-1 - CMP Order Info: [id number] - LIPID Order Date: 03/08/24 Order Info: [id number] - MG Order Info: 3016-3 - TSH Order Info: 3024-7 - T4F Performed By: #### L 506.0400, L500.4100, L501.9520, L506.1000, L500.4050, L100.0100 #### [facility] [address] [place], [place], [id number] ALK P 53 U/L Normal 45-117 [facility] Comment on above: Order Comment: Order Date: 10/24/24 Order Info: 86-1 - CMP Order Info: 72667-9 - LIPID Order Date: 03/08/24 Order Info: [id number] - MG Order Info: 3016-3 - TSH Order Info: 3024-7 - T4F Performed By: #### L 506.0400, L500.4100, L501.9520, L506.1000, L500.4050, L100.0100 #### [facility] [address] [place], [address] ALT [Catalytic activity/Vol] 18 U/L Normal 13-56 [facility] Comment on above: Order Comment: Order Date: 10/24/24 Order Info: 0786-1 - CMP Order Info: [id number] - LIPID Order Date: 03/08/24 Order Info: 21699-0 - MG Order Info: 3016-3 - TSH Order Info: 3024-7 - T4F Performed By: #### L 506.0400, L500.4100, L501.9520, L506.1000, L500.4050, L100.0100 #### [facility] [address] [place], [place], [id number] AST [Catalytic activity/Vol] 24 U/L Normal 15-37 [facility] Comment on above: Order Comment: Order Date: 10/24/24 Order Info: 0786-1 - CMP Order Info: 08067-3 - LIPID Order Date: 03/08/24 Order Info: [id number] - MG Order Info: 3016-3 - TSH Order Info: 302-7 - T4F Performed By: #### L 506.0400, L500.4100, L501.9520, L506.1000, L500.4050, L100.0100 #### [facility] [address] [place], [place], [id number] Bilirubin [Mass/Vol] 0.50 mg/dL Normal 0.20-1.00 [facility] Comment on above: Order Comment: Order Date: 10/24/24 Order Info: 86-1 - CMP Order Info: [id number] - LIPID Order Date: 03/08/24 Order Info: [id number] - MG Order Info: 301-3 - TSH Order Info: 302-7 - T4F Result Comment: For patients on eltrombopag therapy, use of Dimension [place] TBIL is not recommended. Performed By: #### L 506.0400, L500.4100, L501.9520, L506.1000, L500.4050, L100.0100 #### [facility] [address] [place], [address] BUN/CRE 18.0 RATIO Normal 10-20 [facility] Comment on above: Order Comment: Order Date: 10/24/24 Order Info: 0786-1 - CMP Order Info: [id number] - LIPID Order Date: 03/08/24 Order Info: [id number] - MG Order Info: 3016-3 - TSH Order Info: 3024-7 - T4F Performed By: #### L 506.0400, L500.4100, L501.9520, L506.1000, L500.4050, L100.0100 #### [facility] [address] [place], [address] CA,Total 9.2 mg/dL Normal 8.5-10.1 [facility] Comment on above: Order Comment: Order Date: 10/24/24 Order Info: 0786-1 - CMP Order Info: 10773-8 - LIPID Order Date: 03/08/24 Order Info: [id number] - MG Order Info: 3016-3 - TSH Order Info: 3024-7 - T4F Performed By: #### L 506.0400, L500.4100, L501.9520, L506.1000, L500.4050, L100.0100 #### [facility] [address] [place], [address] Chloride [Moles/Vol] 108 mmol/L High 98-107 [facility] Comment on above: Order Comment: Order Date: 10/24/24 Order Info: 0786-1 - CMP Order Info: 21293-5 - LIPID Order Date: 03/08/24 Order Info: [id number] - MG Order Info: 3016-3 - TSH Order Info: 3024-7 - T4F Performed By: #### L 506.0400, L500.4100, L501.9520, L506.1000, L500.4050, L100.0100 #### [facility] [address] [place], [address] CO2 [Moles/Vol] 29.0 mmol/L Normal 21.0-32.0 [facility] Comment on above: Order Comment: Order Date: 10/24/24 Order Info: 0786-1 - CMP Order Info: 50476-0 - LIPID Order Date: 03/08/24 Order Info: 03098-0 - MG Order Info: 3016-3 - TSH Order Info: 3024-7 - T4F Performed By: #### L 506.0400, L500.4100, L501.9520, L506.1000, L500.4050, L100.0100 #### [facility] [address] [place], [place], [id number] Creatinine [Mass/Vol] 0.72 mg/dL Normal 0.55-1.02 [facility] Comment on above: Order Comment: Order Date: 10/24/24 Order Info: 0786-1 - CMP Order Info: 12207-7 - LIPID Order Date: 03/08/24 Order Info: 13781-5 - MG Order Info: 3016-3 - TSH Order Info: 7 - T4F Result Comment: The validity of the calculated GFR GFRAA in patients over 70 years has not been determined. Clinical correlation is essential. Performed By: #### L 506.0400, L500.4100, L501.9520, L506.1000, L500.4050, L100.0100 #### [facility] [address] [place], [place], [id number] EST GFR - AA 103 mL/min Normal >60 [facility] Comment on above: Order Comment: Order Date: 10/24/24 Order Info: 07-1 - CMP Order Info: 13734-7 - LIPID Order Date: 03/08/24 Order Info: 08615-0 - MG Order Info: 3 - TSH Order Info: 7 - T4F Result Comment: Afri can [place] GFR Calc Performed By: #### L 506.0400, L500.4100, L501.9520, L506.1000, L500.4050, L100.0100 #### [facility] [address] [place], [address] GAP 3 Low 5-15 [facility] Comment on above: Order Comment: Order Date: 10/24/24 Order Info: 0786-1 - CMP Order Info: [id number] - LIPID Order Date: 03/08/24 Order Info: [id number] - MG Order Info: 3015-3 - TSH Order Info: 3027 - T4F Performed By: #### L 506.0400, L500.4100, L501.9520, L506.1000, L500.4050, L100.0100 #### [facility] [address] [place], [address] GFR/1.73 sq M.predicted among non-blacks MDRD (S/P/Bld) [Vol rate/Area] 85 mL/min/{1.73_m2} Normal >60 [facility] Comment on above: Order Comment: Order Date: 10/24/24 Order Info: 0786-1 - CMP Order Info: 44040-2 - LIPID Order Date: 03/08/24 Order Info: 53051-2 - MG Order Info: 3016-3 - TSH Order Info: 3024-7 - T4F Result Comment: Non- GFR Calc Performed By: #### L 506.0400, L500.4100, L501.9520, L506.1000, L500.4050, L100.0100 #### [facility] [address] [place], [address] Globulin (S) [Mass/Vol] 2.9 g/dL Normal 2.2-4.2 [facility] Comment on above: Order Comment: Order Date: 10/24/24 Order Info: 785-1 - CMP Order Info: 94725-0 - LIPID Order Date: 03/08/24 Order Info: [id number] - MG Order Info: 3016-3 - TSH Order Info: 3024-7 - T4F Performed By: #### L 506.0400, L500.4100, L501.9520, L506.1000, L500.4050, L100.0100 #### [facility] [address] [place], [address] Glucose [Mass/Vol] 94 mg/dL Normal 74-106 [facility] Comment on above: Order Comment: Order Date: 10/24/24 Order Info: 0786-1 - CMP Order Info: 30243-2 - LIPID Order Date: 03/08/24 Order Info: [id number] - MG Order Info: 3016-3 - TSH Order Info: 3024-7 - T4F Performed By: #### L 506.0400, L500.4100, L501.9520, L506.1000, L500.4050, L100.0100 #### [facility] [address] [place], [address] Potassium [Moles/Vol] 4.0 mmol/L Normal 3.5-5.1 [facility] Comment on above: Order Comment: Order Date: 10/24/24 Order Info: 86-1 - CMP Order Info: 79464-1 - LIPID Order Date: 03/08/24 Order Info: 90084-4 - MG Order Info: 3016-3 - TSH Order Info: 3024-7 - T4F Performed By: #### L 506.0400, L500.4100, L501.9520, L506.1000, L500.4050, L100.0100 #### [facility] [address] [place], [address] Sodium [Moles/Vol] 140 mmol/L Normal 136-145 [facility] Comment on above: Order Comment: Order Date: 10/24/24 Order Info: 785-1 - CMP Order Info: 98977-0 - LIPID Order Date: 03/08/24 Order Info: 67739-8 - MG Order Info: 3016-3 - TSH Order Info: 3024-7 - T4F Performed By: #### L 506.0400, L500.4100, L501.9520, L506.1000, L500.4050, L100.0100 #### [facility] [address] [place], [address] T PROT 6.8 g/dL Normal 6.4-8.2 [facility] Comment on above: Order Comment: Order Date: 10/24/24 Order Info: 86-1 - CMP Order Info: 80910-0 - LIPID Order Date: 03/08/24 Order Info: 16426-5 - MG Order Info: 3016-3 - TSH Order Info: 3024-7 - T4F Performed By: #### L 506.0400, L500.4100, L501.9520, L506.1000, L500.4050, L100.0100 #### [facility] [address] [place], [address] Urea nitrogen [Mass/Vol] 13 mg/dL Normal 7-18 [facility] Comment on above: Order Comment: Order Date: 10/24/24 Order Info: 0786-1 - CMP Order Info: [id number] - LIPID Order Date: 03/08/24 Order Info: 61807-9 - MG Order Info: 3016-3 - TSH Order Info: 3024-7 - T4F Performed By: #### L 506.0400, L500.4100, L501.9520, L506.1000, L500.4050, L100.0100 #### [facility] [address] [place], [address] Direct serum free thyroxine (FT4) measurementOrdered By: Gaetano Tilley on 12-27-2024 Free T4 [Mass/Vol] 0.92 ng/dL 0.76-1.46 [facility] Eosinophil percentageOrdered By: Gaetano Tilley on 12-27-2024 Eosinophils/100 WBC (Bld) 1.5 % 0-5 [facility] Erythrocyte distribution wid th ratioOrdered By: Gaetano Tilley on 12-27-2024 Erythrocyte distribution width (RBC) [Ratio] 13.4 % 11.6-14.6 [facility] Erythrocyte distribution wid th standard deviationOrdered By: Gaetano Tilley on 12-27-2024 Erythrocyte distribution width (RBC) [Entitic vol] 50.0 fL High 35.1-43.9 [facility] Estimated glomerular filtrat ion rate (GFR) AmericanOrdered By: Gaetano Tilley on 12-27-2024 Estimated GFR (MDRD) Amer 103 mL/min >60 [facility] Comment on above: GFR Calc Glomerular filtration rate ( GFR) estimationOrdered By: Gaetano Tilley on 12-27-2024 Estimated GFR (MDRD) Non-Af Amer 85 mL/min >60 [facility] Comment on above: Non- GFR Calc Glucose measurementOrdered B y: Gaetano Tilley on 12-27-2024 Glucose [Mass/Vol] 94 mg/dL 74-106 [facility] Hematocrit Auto (Bld) [Volum e fraction]Ordered By: Gaetano Tilley on 12-27-2024 Hematocrit (Bld) [Volume fraction] 40.1 % 37-47 [facility] Hemoglobin measurementOrdere d By: Gaetano Tilley on 12-27-2024 Hemoglobin (Bld) [Mass/Vol] 13.0 g/dL 12.0-15.0 [facility] High density lipoprotein (HD L) measurementOrdered By: Gaetano Tilley on 12-27-2024 Cholesterol in HDL [Mass/Vol] 76 mg/dL >40 [facility] Comment on above: The drugs N-Acetylcy steine and Metamizole may falsely depress this assay. Reference Range HDL <40 mg/dL Low HDL Cholesterol HDL >or= 60 mg/dL High HDL Cholesterol Immature granulocytes/100 WB C Auto (Bld)Ordered By: Gaetano Tilley on 12-27-2024 Immature granulocytes/100 WBC (Bld) 0.000 % 0.0-0.9 [facility] Comment on above: IG% - Immature Granu locytes (promyelocytes, myelocytes and metamyelocytes) > 1% indicates that a LEFT SHIFT is Present. Laboratory - Chemistry and C hemistry - challengeOrdered By: Gaetano Tilley on 12-27-2024 AST [Catalytic activity/Vol] 24 U/L 15-37 [facility] Lipid Profileon 12-27-2024 Cholesterol [Mass/Vol] 231 mg/dL High 200 [facility] Comment on above: Order Comment: Order Date: 10/24/24 Order Info: 0786-1 - CMP Order Info: 17670-2 - LIPID Order Date: 03/08/24 Order Info: 12162-0 - MG Order Info: 3016-3 - TSH Order Info: 3024-7 - T4F Result Comment: <200 mg/dL Desirable 200-240 mg/dL Borderline >240 mg/dL High Risk Performed By: #### L 506.0400, L500.4100, L501.9520, L506.1000, L500.4050, L100.0100 #### [facility] [address] [place], [address] Cholesterol in HDL [Mass/Vol] 76 mg/dL Normal [facility] Comment on above: Order Comment: Order Date: 10/24/24 Order Info: 0786-1 - CMP Order Info: [id number] - LIPID Order Date: 03/08/24 Order Info: [id number] - MG Order Info: 3016-3 - TSH Order Info: 3024-7 - T4F Result Comment: The drugs N-Acetylcysteine and Metamizole may falsely depress this assay. Reference Range HDL <40 mg/dL Low HDL Cholesterol HDL >or= 60 mg/dL High HDL Cholesterol Performed By: #### L 506.0400, L500.4100, L501.9520, L506.1000, L500.4050, L100.0100 #### [facility] [address] [place], [address] Cholesterol in LDL [Mass/Vol] 126 mg/dL Normal 0-130 [facility] Comment on above: Order Comment: Order Date: 10/24/24 Order Info: 785-11 - CMP Order Info: - LIPID Order Date: 03/08/24 Order Info: 23130-0 - MG Order Info: 3015-3 - TSH Order Info: 3024-7 - T4F Performed By: #### L 506.0400, L500.4100, L501.9520, L506.1000, L500.4050, L100.0100 #### [facility] [address] [place], [address] Cholesterol in VLDL [Mass/Vol] 29 mg/dL Normal 5-40 [facility] Comment on above: Order Comment: Order Date: 10/24/24 Order Info: 785- - CMP Order Info: 93599-0 - LIPID Order Date: 03/08/24 Order Info: [id number] - MG Order Info: 3016-3 - TSH Order Info: 3024-7 - T4F Performed By: #### L 506.0400, L500.4100, L501.9520, L506.1000, L500.4050, L100.0100 #### [facility] [address] [place], [place], [id number] Triglyceride [Mass/Vol] 147 mg/dL Normal [facility] Comment on above: Order Comment: Order Date: 10/24/24 Order Info: 0786-1 - CMP Order Info: 21072-1 - LIPID Order Date: 03/08/24 Order Info: [id number] - MG Order Info: 3016-3 - TSH Order Info: 3024-7 - T4F Result Comment: The drugs N-Acetylcysteine and Metamizole may falsely depress this assay. Serum Triglycerides Reference Interval Normal <150 mg/dL Borderline high 150 - 199 mg/dL High 200 - 499 mg/dL Very High > or = 500 mg/dL Performed By: #### L 506.0400, L500.4100, L501.9520, L506.1000, L500.4050, L100.0100 #### [facility] [address] [place], [address] Low density lipoprotein (LDL ) cholesterol measurementOrdered By: Gaetano Tilley on 12-27-2024 Cholesterol in LDL [Mass/Vol] 126 mg/dL 0-130 [facility] Lymphocytes Auto (Unsp spec) [#/Vol]Ordered By: Gaetano Tilley on 12-27-2024 Lymphocytes (Bld) [#/Vol] 1.67 10*3/uL 0.83-4.51 [facility] Lymphocytes/100 WBC Auto (Un sp spec)Ordered By: Gaetano Tilley on 12-27-2024 Lymphocytes/100 WBC (Bld) 49.0 % High 19-41 [facility] MCV (mean corpuscular volume ) determinationOrdered By: Gaetano Tilley on 12-27-2024 MCV (RBC) [Entitic vol] 101.0 fL High 81-99 [facility] Magnesiumon 12-27-2024 Magnesium [Mass/Vol] 2.3 mg/dL Normal 1.6-2.6 [facility] Comment on above: Order Comment: Order Date: 10/24/24 Order Info: 0786-1 - CMP Order Info: [id number] - LIPID Order Date: 03/08/24 Order Info: 03400-5 - MG Order Info: 3016-3 - TSH Order Info: 3024-7 - T4F Performed By: #### L 506.0400, L500.4100, L501.9520, L506.1000, L500.4050, L100.0100 #### [facility] [address] [place], [place], [id number] Magnesium measurementOrdered By: Gaetano Tilley on 12-27-2024 Magnesium [Mass/Vol] 2.3 mg/dL 1.6-2.6 [facility] Mean corpuscular hemoglobin (MCH) determinationOrdered By: Gaetano Tilley on 12-27-2024 MCH (RBC) [Entitic mass] 32.7 pg High 27.0-32.0 [facility] Mean corpuscular hemoglobin concentration (MCHC) determinationOrdered By: Gaetano Tilley on 12-27-2024 MCHC (RBC) [Mass/Vol] 32.4 g/dL 32-36 [facility] Mean platelet volume determi nationOrdered By: Gaetano Tilley on 12-27-2024 Platelet mean volume (Bld) [Entitic vol] 9.8 fL 6.2-12.0 [facility] Monocyte percentageOrdered B y: Gaetano Tilley on 12-27-2024 Monocytes/100 WBC (Bld) 8.8 % 0-10 [facility] Neutrophil percentageOrdered By: Gaetano Tilley on 12-27-2024 Neutrophils/100 WBC (Bld) 39.8 % Low 47-70 [facility] Nucleated red blood cell per centageOrdered By: Gaetano Tilley on 12-27-2024 Nucleated RBC/100 WBC (Bld) [Ratio] 0 % 0-5 [facility] Platelet countOrdered By: Ting Tilley on 12-27-2024 Platelets (Bld) [#/Vol] 247 10*3/uL 150-450 [facility] Potassium measurementOrdered By: Gaetano Tilley on 12-27-2024 Potassium [Moles/Vol] 4.0 mmol/L 3.5-5.1 [facility] RBC Auto (Bld) [#/Vol]Ordere d By: Gaetano Tilley on 12-27-2024 RBC (Bld) [#/Vol] 3.97 10*6/uL Low 4.2-5.4 [facility] Serum anion gap measurementO rdered By: Gaetano Tilley on 12-27-2024 Anion gap [Moles/Vol] 3 mmol/L Low 5-15 [facility] Serum globulin measurementOr dered By: Gaetano Tilley on 12-27-2024 Globulin (S) [Mass/Vol] 2.9 g/dL 2.2-4.2 [facility] Serum or plasma alanine parkinson otransferase (ALT) measurementOrdered By: Gaetano Tilley on 12-27-2024 ALT [Catalytic activity/Vol] 18 U/L 13-56 [facility] Serum or plasma albumin lamine urement (mass/volume)Ordered By: Gaetano Tilley on 12-27-2024 Albumin [Mass/Vol] 3.9 g/dL 3.2-5.0 [facility] Serum or plasma alkaline heike sphatase measurementOrdered By: Gaetano Tilley on 12-27-2024 ALP [Catalytic activity/Vol] 53 U/L 45-117 [facility] Serum or plasma calcium lamine urement (mass/volume)Ordered By: Gaetano Tilley on 12-27-2024 Calcium [Mass/Vol] 9.2 mg/dL 8.5-10.1 [facility] Serum or plasma cholesterol measurement (mass/volume)Ordered By: Gaetano Tilley on 12-27-2024 Cholesterol [Mass/Vol] 231 mg/dL High <200 [facility] Comment on above: <200 mg/dL Desirable 200-240 mg/dL Borderline >240 mg/dL High Risk Serum or plasma creatinine m easurement (mass/volume)Ordered By: Gaetano Tilley on 12-27-2024 Creatinine [Mass/Vol] 0.72 mg/dL 0.55-1.02 [facility] Comment on above: The validity of the calculated GFR & GFRAA in patients over 70 years has not been determined. Clinical correlation is essential. Serum or plasma urea nitroge n measurement (mass/volume)Ordered By: Gaetano Tilley on 12-27-2024 Urea nitrogen [Mass/Vol] 13 mg/dL 7-18 [facility] Sodium levelOrdered By: Gaetano Tilley on 12-27-2024 Sodium [Moles/Vol] 140 mmol/L 136-145 [facility] T4 Free Directon 12-27-2024 T4 FREE DIRECT 0.92 ng/dL Normal 0.76-1.46 [facility] Comment on above: Order Comment: Order Date: 10/24/24 Order Info: 0786- - CMP Order Info: [id number] - LIPID Order Date: 03/08/24 Order Info: [id number] - MG Order Info: 3016-01 - TSH Order Info: 3024-05 - T4F Performed By: #### L 506.0400, L500.4100, L501.9520, L506.1000, L500.4050, L100.0100 #### [facility] [address] [place], [place], [id number] TSH QnOrdered By: Gaetano grace on 12-27-2024 Thyroid Stimulating Hormone (TSH) 5.190 uIU/mL High 0.358-3.740 [facility] Thyroid Stim Hormone (TSH)on 12-27-2024 TSH 5.190 uIU/mL High 0.358-3.740 [facility] Comment on above: Order Comment: Order Date: 10/24/24 Order Info: 86- - CMP Order Info: [id number] - LIPID Order Date: 03/08/24 Order Info: [id number] - MG Order Info: 3 - TSH Order Info: 3024-05 - T4F Performed By: #### L 506.0400, L500.4100, L501.9520, L506.1000, L500.4050, L100.0100 #### [facility] [address] [place], [place], [address] Total proteinOrdered By: Venkat Tilley on 12-27-2024 Protein [Mass/Vol] 6.8 g/dL 6.4-8.2 [facility] Triglycerides measurementOrd ered By: Gaetano Tilley on 12-27-2024 Triglyceride [Mass/Vol] 147 mg/dL <199 [facility] Comment on above: The drugs N-Acetylcy steine and Metamizole may falsely depress this assay.Serum Triglycerides Reference Interval Normal <150 mg/dL Borderline high 150 - 199 mg/dL High 200 - 499 mg/dL Very High > or = 500 mg/dL Very low density lipoprotein (VLDL) cholesterol measurementOrdered By: Gaetano Tilley on 12-27-2024 VLDL Cholesterol 29 mg/dL 5-40 [facility] Vitamin D,25 Hydroxyon 12-27 Vitamin D 25-OH 38.9 ng/mL Normal [facility] Comment on above: Order Comment: Order Date: 10/24/24 Order Info: [id number] - VITD25 Result Comment: Libby min D 25(OH) Status Range Deficiency <20 ng/mL (50nmol/L) Insufficiency 20 - 30 ng/mL (50 - 75 nmol/L) Sufficiency 30 - 100 ng/mL (75 - 250 nmol/L) Toxicity >100 ng/mL (>250 nmol/L) Performed By: #### L 506.0400, L500.4100, L501.9520, L506.1000, L500.4050, L100.0100 #### [facility] [address] [place], [address] White blood cell (WBC) count Ordered By: Gaetano Tilley on 12-27-2024 WBC (Bld) [#/Vol] 3.4 10*3/uL Low 4.4-11.0 [facility] 36-HB-Ftrihsx DOrdered By: Vaolrie Tilely on 10-08-2024 Vitamin D 25-Hydroxy 31.8 ng/mL [facility] Comment on above: Vitamin D 25(OH) Sta tus Range Deficiency <20 ng/mL (50nmol/L) Insufficiency 20 - 30 ng/mL (50 - 75 nmol/L) Sufficiency 30 - 100 ng/mL (75 - 250 nmol/L) Toxicity >100 ng/mL (>250 nmol/L) Absolute neutrophil countOrd ered By: Gaetano Tilley on 10-08-2024 Neutrophils (Bld) [#/Vol] 2.1 10*3/uL 2.0-7.7 [facility] Albumin to globulin ratioOrd ered By: Gaetano Callowayrock on 10-08-2024 Albumin/Globulin [Mass ratio] 1.3 {ratio} 0.9-2.4 [facility] Basophil percentageOrdered B y: Gaetano Tilley on 10-08-2024 Basophils/100 WBC (Bld) 0.8 % 0-1 [facility] Bilirubin, totalOrdered By: Gaetano Tilley on 10-08-2024 Bilirubin [Mass/Vol] 0.50 mg/dL 0.20-1.00 [facility] Comment on above: For patients on eltr ombopag therapy, use of Dimension [place] TBIL is not recommended. Blood urea nitrogen (BUN)/cr eatinine ratioOrdered By: Gaetano Tilley on 10-08-2024 Urea nitrogen/Creatinine [Mass ratio] 16.1 mg/mg 10-20 [facility] CBC W/Diff, Automatedon 09-28 Absolute Lymph 2.32 X10 3/uL Normal 0.83-4.51 [facility] Comment on above: Order Comment: Order Date: 10/24/24 Order Info: 0786-1 - CMP Order Info: 25512-1 - LIPID Order Date: 03/08/24 Order Info: [id number] - MG Order Info: 3016-3 - TSH Order Info: 302-7 - T4F Performed By: #### L 506.0400, L500.4100, L501.9520, L506.1000, L500.4050, L100.0100 #### [facility] [address] [place], [place], [id number] Absolute Neut 2.1 X10 3/uL Normal 2.0-7.7 [facility] Comment on above: Order Comment: Order Date: 10/24/24 Order Info: 0786-1 - CMP Order Info: 97424-6 - LIPID Order Date: 03/08/24 Order Info: [id number] - MG Order Info: 3016-3 - TSH Order Info: 3024-7 - T4F Performed By: #### L 506.0400, L500.4100, L501.9520, L506.1000, L500.4050, L100.0100 #### [facility] [address] [place], [address] Basophils/100 WBC (Bld) 0.8 % Normal 0-1 [facility] Comment on above: Order Comment: Order Date: 10/24/24 Order Info: 0786-1 - CMP Order Info: [id number] - LIPID Order Date: 03/08/24 Order Info: [id number] - MG Order Info: 3016-3 - TSH Order Info: 3024-7 - T4F Performed By: #### L 506.0400, L500.4100, L501.9520, L506.1000, L500.4050, L100.0100 #### [facility] [address] [place], [address] Eosinophils/100 WBC (Bld) 1.0 % Normal 0-5 [facility] Comment on above: Order Comment: Order Date: 10/24/24 Order Info: 86-1 - CMP Order Info: 16322-6 - LIPID Order Date: 03/08/24 Order Info: 12303-9 - MG Order Info: 3016-3 - TSH Order Info: 3024-7 - T4F Performed By: #### L 506.0400, L500.4100, L501.9520, L506.1000, L500.4050, L100.0100 #### [facility] [address] [place], [address] Erythrocyte distribution width (RBC) [Ratio] 14.6 % Normal 11.6-14.6 [facility] Comment on above: Order Comment: Order Date: 10/24/24 Order Info: 0786-1 - CMP Order Info: 54601-2 - LIPID Order Date: 03/08/24 Order Info: 70727-6 - MG Order Info: 3016-3 - TSH Order Info: 3024-7 - T4F Performed By: #### L 506.0400, L500.4100, L501.9520, L506.1000, L500.4050, L100.0100 #### [facility] [address] [place], [address] Hematocrit (Bld) [Volume fraction] 41.3 % Normal 37-47 [facility] Comment on above: Order Comment: Order Date: 10/24/24 Order Info: 86-1 - CMP Order Info: 99008-2 - LIPID Order Date: 03/08/24 Order Info: 14622-0 - MG Order Info: 30163 - TSH Order Info: 7 - T4F Performed By: #### L 506.0400, L500.4100, L501.9520, L506.1000, L500.4050, L100.0100 #### [facility] [address] [place], [address] Hemoglobin (Bld) [Mass/Vol] 13.7 g/dL Normal 12.0-15.0 [facility] Comment on above: Order Comment: Order Date: 10/24/24 Order Info: 785- - CMP Order Info: 58803-2 - LIPID Order Date: 03/08/24 Order Info: 87828-2 - MG Order Info: 30163 - TSH Order Info: 7 - T4F Performed By: #### L 506.0400, L500.4100, L501.9520, L506.1000, L500.4050, L100.0100 #### [facility] [address] [place], [address] IG% 0.200 Normal 0.0-0.9 [facility] Comment on above: Order Comment: Order Date: 10/24/24 Order Info: 86-1 - CMP Order Info: 13420-3 - LIPID Order Date: 03/08/24 Order Info: 46883-6 - MG Order Info: 3016-3 - TSH Order Info: 3024-7 - T4F Result Comment: IG% - Immature Granulocytes (promyelocytes, myelocytes and metamyelocytes) > 1% indicates that a LEFT SHIFT is Present. Performed By: #### L 506.0400, L500.4100, L501.9520, L506.1000, L500.4050, L100.0100 #### [facility] [address] [place], [address] Lymphocytes/100 WBC (Bld) 47.0 % High 19-41 [facility] Comment on above: Order Comment: Order Date: 10/24/24 Order Info: 0786-1 - CMP Order Info: 79418-0 - LIPID Order Date: 03/08/24 Order Info: 09055-4 - MG Order Info: 3016-3 - TSH Order Info: 7 - T4F Performed By: #### L 506.0400, L500.4100, L501.9520, L506.1000, L500.4050, L100.0100 #### [facility] [address] [place], [address] MCH (RBC) [Entitic mass] 32.5 pg High 27.0-32.0 [facility] Comment on above: Order Comment: Order Date: 10/24/24 Order Info: 86-1 - CMP Order Info: 86599-9 - LIPID Order Date: 03/08/24 Order Info: 84468-9 - MG Order Info: 3016-3 - TSH Order Info: 7 - T4F Performed By: #### L 506.0400, L500.4100, L501.9520, L506.1000, L500.4050, L100.0100 #### [facility] [address] [place], [address] MCHC (RBC) [Mass/Vol] 33.2 g/dL Normal 32-36 [facility] Comment on above: Order Comment: Order Date: 10/24/24 Order Info: 86-1 - CMP Order Info: 14294-8 - LIPID Order Date: 03/08/24 Order Info: 73975-3 - MG Order Info: 3016-3 - TSH Order Info: 3024-7 - T4F Performed By: #### L 506.0400, L500.4100, L501.9520, L506.1000, L500.4050, L100.0100 #### [facility] [address] [place], [address] MCV (RBC) [Entitic vol] 98.1 fL Normal 81-99 [facility] Comment on above: Order Comment: Order Date: 10/24/24 Order Info: 86-1 - CMP Order Info: 71809-9 - LIPID Order Date: 03/08/24 Order Info: 04660-9 - MG Order Info: 6-3 - TSH Order Info: 302-7 - T4F Performed By: #### L 506.0400, L500.4100, L501.9520, L506.1000, L500.4050, L100.0100 #### [facility] [address] [place], [address] Monocytes/100 WBC (Bld) 8.7 % Normal 0-10 [facility] Comment on above: Order Comment: Order Date: 10/24/24 Order Info: 86-1 - CMP Order Info: 49796-2 - LIPID Order Date: 03/08/24 Order Info: 80931-1 - MG Order Info: 3016-3 - TSH Order Info: 3024-7 - T4F Performed By: #### L 506.0400, L500.4100, L501.9520, L506.1000, L500.4050, L100.0100 #### [facility] [address] [place], [address] Neutrophils/100 WBC (Bld) 42.3 % Low 47-70 [facility] Comment on above: Order Comment: Order Date: 10/24/24 Order Info: 0786-1 - CMP Order Info: 19571-6 - LIPID Order Date: 03/08/24 Order Info: 45236-9 - MG Order Info: 3016-3 - TSH Order Info: 3024-7 - T4F Performed By: #### L 506.0400, L500.4100, L501.9520, L506.1000, L500.4050, L100.0100 #### [facility] [address] [place], [address] Nucleated RBC (Bld) [#/Vol] 0 10*3/uL Normal 0-5 [facility] Comment on above: Order Comment: Order Date: 10/24/24 Order Info: 0786-1 - CMP Order Info: 88555-2 - LIPID Order Date: 03/08/24 Order Info: [id number] - MG Order Info: 3016-3 - TSH Order Info: 3024-7 - T4F Performed By: #### L 506.0400, L500.4100, L501.9520, L506.1000, L500.4050, L100.0100 #### [facility] [address] [place], [address] Platelet mean volume (Bld) [Entitic vol] 9.9 fL Normal 6.2-12.0 [facility] Comment on above: Order Comment: Order Date: 10/24/24 Order Info: 785-1 - CMP Order Info: 10254-9 - LIPID Order Date: 03/08/24 Order Info: 09687-0 - MG Order Info: 3016-3 - TSH Order Info: 3024-7 - T4F Performed By: #### L 506.0400, L500.4100, L501.9520, L506.1000, L500.4050, L100.0100 #### [facility] [address] [place], [address] Platelets (Bld) [#/Vol] 293 10*3/uL Normal 150-450 [facility] Comment on above: Order Comment: Order Date: 10/24/24 Order Info: 0786-1 - CMP Order Info: 15624-6 - LIPID Order Date: 03/08/24 Order Info: 24580-0 - MG Order Info: 3016-3 - TSH Order Info: 3024-7 - T4F Performed By: #### L 506.0400, L500.4100, L501.9520, L506.1000, L500.4050, L100.0100 #### [facility] [address] [place], [address] RBC (Bld) [#/Vol] 4.21 10*6/uL Normal 4.2-5.4 [facility] Comment on above: Order Comment: Order Date: 10/24/24 Order Info: 86-1 - CMP Order Info: 04992-2 - LIPID Order Date: 03/08/24 Order Info: 56440-3 - MG Order Info: 3016-3 - TSH Order Info: 3024-7 - T4F Performed By: #### L 506.0400, L500.4100, L501.9520, L506.1000, L500.4050, L100.0100 #### [facility] [address] [place], [address] RDW SD 53.0 fl High 35.1-43.9 [facility] Comment on above: Order Comment: Order Date: 10/24/24 Order Info: 785-1 - CMP Order Info: 25079-1 - LIPID Order Date: 03/08/24 Order Info: 78489-0 - MG Order Info: 3016-3 - TSH Order Info: 3024-7 - T4F Performed By: #### L 506.0400, L500.4100, L501.9520, L506.1000, L500.4050, L100.0100 #### [facility] [address] [place], [address] WBC (Bld) [#/Vol] 4.9 10*3/uL Normal 4.4-11.0 [facility] Comment on above: Order Comment: Order Date: 10/24/24 Order Info: 0786-1 - CMP Order Info: 26926-4 - LIPID Order Date: 03/08/24 Order Info: 72579-2 - MG Order Info: 3016-3 - TSH Order Info: 3024-7 - T4F Performed By: #### L 506.0400, L500.4100, L501.9520, L506.1000, L500.4050, L100.0100 #### [facility] [address] [place], [address] Carbon dioxide measurementOr dered By: Gaetano Tilley on 10-08-2024 CO2 [Moles/Vol] 26.0 mmol/L 21.0-32.0 [facility] Chloride measurementOrdered By: Gaetano Tilley on 10-08-2024 Chloride [Moles/Vol] 107 mmol/L 98-107 [facility] Comprehensive Metabolic Prof ilon 10-08-2024 Albumin [Mass/Vol] 4.0 g/dL Normal 3.2-5.0 [facility] Comment on above: Order Comment: Order Date: 10/24/24 Order Info: 0786-1 - CMP Order Info: 51819-8 - LIPID Order Date: 03/08/24 Order Info: 40799-7 - MG Order Info: 3015-3 - TSH Order Info: 7 - T4F Performed By: #### L 506.0400, L500.4100, L501.9520, L506.1000, L500.4050, L100.0100 #### [facility] [address] [place], [address] Albumin/Globulin [Mass ratio] 1.3 {ratio} Normal 0.9-2.4 [facility] Comment on above: Order Comment: Order Date: 10/24/24 Order Info: 0786-1 - CMP Order Info: 34638-0 - LIPID Order Date: 03/08/24 Order Info: 99966-3 - MG Order Info: 3016-3 - TSH Order Info: 3024-7 - T4F Performed By: #### L 506.0400, L500.4100, L501.9520, L506.1000, L500.4050, L100.0100 #### [facility] [address] [place], [address] ALK P 59 U/L Normal 45-117 [facility] Comment on above: Order Comment: Order Date: 10/24/24 Order Info: 0786-1 - CMP Order Info: 91545-9 - LIPID Order Date: 03/08/24 Order Info: 96963-5 - MG Order Info: 3016-3 - TSH Order Info: 3024-7 - T4F Performed By: #### L 506.0400, L500.4100, L501.9520, L506.1000, L500.4050, L100.0100 #### [facility] [address] [place], [address] ALT [Catalytic activity/Vol] 20 U/L Normal 13-56 [facility] Comment on above: Order Comment: Order Date: 10/24/24 Order Info: 86-1 - CMP Order Info: 40383-8 - LIPID Order Date: 03/08/24 Order Info: 12218-0 - MG Order Info: 3016-3 - TSH Order Info: 3024-7 - T4F Performed By: #### L 506.0400, L500.4100, L501.9520, L506.1000, L500.4050, L100.0100 #### [facility] [address] [place], [address] AST [Catalytic activity/Vol] 20 U/L Normal 15-37 [facility] Comment on above: Order Comment: Order Date: 10/24/24 Order Info: 0786-1 - CMP Order Info: 44591-3 - LIPID Order Date: 03/08/24 Order Info: 03935-3 - MG Order Info: 3016-3 - TSH Order Info: 3024-7 - T4F Performed By: #### L 506.0400, L500.4100, L501.9520, L506.1000, L500.4050, L100.0100 #### [facility] [address] [place], [address] Bilirubin [Mass/Vol] 0.50 mg/dL Normal 0.20-1.00 [facility] Comment on above: Order Comment: Order Date: 10/24/24 Order Info: 0786-1 - CMP Order Info: 73051-2 - LIPID Order Date: 03/08/24 Order Info: 19572-9 - MG Order Info: 3016-3 - TSH Order Info: 3024-7 - T4F Result Comment: For patients on eltrombopag therapy, use of Dimension [place] TBIL is not recommended. Performed By: #### L 506.0400, L500.4100, L501.9520, L506.1000, L500.4050, L100.0100 #### [facility] [address] [place], [address] BUN/CRE 16.1 RATIO Normal 10-20 [facility] Comment on above: Order Comment: Order Date: 10/24/24 Order Info: 0786-1 - CMP Order Info: 58771-8 - LIPID Order Date: 03/08/24 Order Info: 50877-2 - MG Order Info: 3015-3 - TSH Order Info: 3024-7 - T4F Performed By: #### L 506.0400, L500.4100, L501.9520, L506.1000, L500.4050, L100.0100 #### [facility] [address] [place], [address] CA,Total 9.4 mg/dL Normal 8.5-10.1 [facility] Comment on above: Order Comment: Order Date: 10/24/24 Order Info: 0786-1 - CMP Order Info: 52777-2 - LIPID Order Date: 03/08/24 Order Info: 73491-4 - MG Order Info: 3016-3 - TSH Order Info: 3024-7 - T4F Performed By: #### L 506.0400, L500.4100, L501.9520, L506.1000, L500.4050, L100.0100 #### [facility] [address] [place], [address] Chloride [Moles/Vol] 107 mmol/L Normal 98-107 [facility] Comment on above: Order Comment: Order Date: 10/24/24 Order Info: 86-1 - CMP Order Info: 92637-9 - LIPID Order Date: 03/08/24 Order Info: 57274-5 - MG Order Info: 3015-3 - TSH Order Info: 7 - T4F Performed By: #### L 506.0400, L500.4100, L501.9520, L506.1000, L500.4050, L100.0100 #### [facility] [address] [place], [address] CO2 [Moles/Vol] 26.0 mmol/L Normal 21.0-32.0 [facility] Comment on above: Order Comment: Order Date: 10/24/24 Order Info: 86-1 - CMP Order Info: 35947-1 - LIPID Order Date: 03/08/24 Order Info: 12390-2 - MG Order Info: 3 - TSH Order Info: 3024-05 - T4F Performed By: #### L 506.0400, L500.4100, L501.9520, L506.1000, L500.4050, L100.0100 #### [facility] [address] [place], [address] Creatinine [Mass/Vol] 0.74 mg/dL Normal 0.55-1.02 [facility] Comment on above: Order Comment: Order Date: 10/24/24 Order Info: 86-1 - CMP Order Info: 67530-0 - LIPID Order Date: 03/08/24 Order Info: 07637-7 - MG Order Info: 3 - TSH Order Info: 7 - T4F Result Comment: The validity of the calculated GFR GFRAA in patients over 70 years has not been determined. Clinical correlation is essential. Performed By: #### L 506.0400, L500.4100, L501.9520, L506.1000, L500.4050, L100.0100 #### [facility] [address] [place], [address] EST GFR - AA 100 mL/min Normal >60 [facility] Comment on above: Order Comment: Order Date: 10/24/24 Order Info: 0786-1 - CMP Order Info: 05554-2 - LIPID Order Date: 03/08/24 Order Info: 00040-2 - MG Order Info: 3015-3 - TSH Order Info: 302-7 - T4F Result Comment: Afri can [place] GFR Calc Performed By: #### L 506.0400, L500.4100, L501.9520, L506.1000, L500.4050, L100.0100 #### [facility] [address] [place], [address] GAP 8 Normal 5-15 [facility] Comment on above: Order Comment: Order Date: 10/24/24 Order Info: 0786-1 - CMP Order Info: 54054-5 - LIPID Order Date: 03/08/24 Order Info: 07842-6 - MG Order Info: 3 - TSH Order Info: 7 - T4F Performed By: #### L 506.0400, L500.4100, L501.9520, L506.1000, L500.4050, L100.0100 #### [facility] [address] [place], [place], [address] GFR/1.73 sq M.predicted among non-blacks MDRD (S/P/Bld) [Vol rate/Area] 83 mL/min/{1.73_m2} Normal >60 [facility] Comment on above: Order Comment: Order Date: 10/24/24 Order Info: 0786-1 - CMP Order Info: 84021-2 - LIPID Order Date: 03/08/24 Order Info: 95346-2 - MG Order Info: 6-3 - TSH Order Info: 3024-7 - T4F Result Comment: Non- GFR Calc Performed By: #### L 506.0400, L500.4100, L501.9520, L506.1000, L500.4050, L100.0100 #### [facility] [address] [place], [address] Globulin (S) [Mass/Vol] 3.0 g/dL Normal 2.2-4.2 [facility] Comment on above: Order Comment: Order Date: 10/24/24 Order Info: 0786-1 - CMP Order Info: 13498-7 - LIPID Order Date: 03/08/24 Order Info: 38257-0 - MG Order Info: 3016-3 - TSH Order Info: 3024-7 - T4F Performed By: #### L 506.0400, L500.4100, L501.9520, L506.1000, L500.4050, L100.0100 #### [facility] [address] [place], [address] Glucose [Mass/Vol] 87 mg/dL Normal 74-106 [facility] Comment on above: Order Comment: Order Date: 10/24/24 Order Info: 785-1 - CMP Order Info: 85675-9 - LIPID Order Date: 03/08/24 Order Info: 86136-1 - MG Order Info: 6-3 - TSH Order Info: 3024-7 - T4F Performed By: #### L 506.0400, L500.4100, L501.9520, L506.1000, L500.4050, L100.0100 #### [facility] [address] [place], [address] Potassium [Moles/Vol] 3.6 mmol/L Normal 3.5-5.1 [facility] Comment on above: Order Comment: Order Date: 10/24/24 Order Info: 07-1 - CMP Order Info: 86762-3 - LIPID Order Date: 03/08/24 Order Info: 25122-9 - MG Order Info: 3016-3 - TSH Order Info: 3024-7 - T4F Performed By: #### L 506.0400, L500.4100, L501.9520, L506.1000, L500.4050, L100.0100 #### [facility] [address] [place], [address] Sodium [Moles/Vol] 141 mmol/L Normal 136-145 [facility] Comment on above: Order Comment: Order Date: 10/24/24 Order Info: 0786-1 - CMP Order Info: 53683-2 - LIPID Order Date: 03/08/24 Order Info: 41038-5 - MG Order Info: 3016-3 - TSH Order Info: 3024-7 - T4F Performed By: #### L 506.0400, L500.4100, L501.9520, L506.1000, L500.4050, L100.0100 #### [facility] [address] [place], [address] T PROT 7.0 g/dL Normal 6.4-8.2 [facility] Comment on above: Order Comment: Order Date: 10/24/24 Order Info: 07-1 - CMP Order Info: 17894-3 - LIPID Order Date: 03/08/24 Order Info: 98907-0 - MG Order Info: 3016-3 - TSH Order Info: 3024-7 - T4F Performed By: #### L 506.0400, L500.4100, L501.9520, L506.1000, L500.4050, L100.0100 #### [facility] [address] [place], [address] Urea nitrogen [Mass/Vol] 12 mg/dL Normal 7-18 [facility] Comment on above: Order Comment: Order Date: 10/24/24 Order Info: 0786-1 - CMP Order Info: 40200-3 - LIPID Order Date: 03/08/24 Order Info: 72805-7 - MG Order Info: 3016-3 - TSH Order Info: 3024-7 - T4F Performed By: #### L 506.0400, L500.4100, L501.9520, L506.1000, L500.4050, L100.0100 #### [facility] [address] [place], [address] Direct serum free thyroxine (FT4) measurementOrdered By: Gaetano Tilley on 10-08-2024 Free T4 [Mass/Vol] 0.95 ng/dL 0.76-1.46 [facility] Eosinophil percentageOrdered By: Gaetano Tilley on 10-08-2024 Eosinophils/100 WBC (Bld) 1.0 % 0-5 [facility] Erythrocyte distribution wid th ratioOrdered By: Gaetano Tilley on 10-08-2024 Erythrocyte distribution width (RBC) [Ratio] 14.6 % 11.6-14.6 [facility] Erythrocyte distribution wid th standard deviationOrdered By: Gaetano Tilley on 10-08-2024 Erythrocyte distribution width (RBC) [Entitic vol] 53.0 fL High 35.1-43.9 [facility] Estimated glomerular filtrat ion rate (GFR) AmericanOrdered By: Gaetano Tilley on 10-08-2024 Estimated GFR (MDRD) Amer 100 mL/min >60 [facility] Comment on above: GFR Calc Glomerular filtration rate ( GFR) estimationOrdered By: Gaetano Tilley on 10-08-2024 Estimated GFR (MDRD) Non-Af Amer 83 mL/min >60 [facility] Comment on above: Non- GFR Calc Glucose measurementOrdered B y: Gaeatno Tilley on 10-08-2024 Glucose [Mass/Vol] 87 mg/dL 74-106 [facility] Hematocrit Auto (Bld) [Volum e fraction]Ordered By: Gaetano Tilley on 10-08-2024 Hematocrit (Bld) [Volume fraction] 41.3 % 37-47 [facility] Hemoglobin measurementOrdere d By: Gaetano Tilley on 10-08-2024 Hemoglobin (Bld) [Mass/Vol] 13.7 g/dL 12.0-15.0 [facility] High density lipoprotein (HD L) measurementOrdered By: Gaetano Tilley on 10-08-2024 Cholesterol in HDL [Mass/Vol] 80 mg/dL >40 [facility] Comment on above: The drugs N-Acetylcy steine and Metamizole may falsely depress this assay. Reference Range HDL <40 mg/dL Low HDL Cholesterol HDL >or= 60 mg/dL High HDL Cholesterol Immature granulocytes/100 WB C Auto (Bld)Ordered By: Gaetano Tilley on 10-08-2024 Immature granulocytes/100 WBC (Bld) 0.200 % 0.0-0.9 [facility] Comment on above: IG% - Immature Granu locytes (promyelocytes, myelocytes and metamyelocytes) > 1% indicates that a LEFT SHIFT is Present. Laboratory - Chemistry and C hemistry - challengeOrdered By: Gaetano Tilley on 10-08-2024 AST [Catalytic activity/Vol] 20 U/L 15-37 [facility] Lipid Profileon 10-08-2024 Cholesterol [Mass/Vol] 341 mg/dL High 200 [facility] Comment on above: Order Comment: Order Date: 10/24/24 Order Info: 0786-1 - CMP Order Info: 12676-1 - LIPID Order Date: 03/08/24 Order Info: 11040-5 - MG Order Info: 301-3 - TSH Order Info: 3027 - T4F Result Comment: <200 mg/dL Desirable 200-240 mg/dL Borderline >240 mg/dL High Risk Performed By: #### L 506.0400, L500.4100, L501.9520, L506.1000, L500.4050, L100.0100 #### [facility] [address] [place], [address] Cholesterol in HDL [Mass/Vol] 80 mg/dL Normal [facility] Comment on above: Order Comment: Order Date: 10/24/24 Order Info: 0786-1 - CMP Order Info: 19780-9 - LIPID Order Date: 03/08/24 Order Info: [id number] - MG Order Info: 301-3 - TSH Order Info: 3027 - T4F Result Comment: The drugs N-Acetylcysteine and Metamizole may falsely depress this assay. Reference Range HDL <40 mg/dL Low HDL Cholesterol HDL >or= 60 mg/dL High HDL Cholesterol Performed By: #### L 506.0400, L500.4100, L501.9520, L506.1000, L500.4050, L100.0100 #### [facility] [address] [place], [address] Cholesterol in LDL [Mass/Vol] 224 mg/dL High 0-130 [facility] Comment on above: Order Comment: Order Date: 10/24/24 Order Info: 0786-1 - CMP Order Info: - LIPID Order Date: 03/08/24 Order Info: 38005-6 - MG Order Info: 6-3 - TSH Order Info: 3024-05 - T4F Performed By: #### L 506.0400, L500.4100, L501.9520, L506.1000, L500.4050, L100.0100 #### [facility] [address] [place], [place], [address] (014) Cholesterol in VLDL [Mass/Vol] 37 mg/dL Normal 5-40 [facility] Comment on above: Order Comment: Order Date: 10/24/24 Order Info: 785- - CMP Order Info: - LIPID Order Date: 03/08/24 Order Info: 96374-7 - MG Order Info: 3 - TSH Order Info: 3024-05 - T4F Performed By: #### L 506.0400, L500.4100, L501.9520, L506.1000, L500.4050, L100.0100 #### [facility] [address] [place], [address] Triglyceride [Mass/Vol] 184 mg/dL Normal [facility] Comment on above: Order Comment: Order Date: 10/24/24 Order Info: 07-1 - CMP Order Info: - LIPID Order Date: 03/08/24 Order Info: 40099-1 - MG Order Info: 3 - TSH Order Info: 7 - T4F Result Comment: The drugs N-Acetylcysteine and Metamizole may falsely depress this assay. Serum Triglycerides Reference Interval Normal <150 mg/dL Borderline high 150 - 199 mg/dL High 200 - 499 mg/dL Very High > or = 500 mg/dL Performed By: #### L 506.0400, L500.4100, L501.9520, L506.1000, L500.4050, L100.0100 #### [facility] [place], [address] Low density lipoprotein (LDL ) cholesterol measurementOrdered By: Gaetano Tilley on 10-08-2024 Cholesterol in LDL [Mass/Vol] 224 mg/dL High 0-130 [facility] Lymphocytes Auto (Unsp spec) [#/Vol]Ordered By: Gaetano Tilley on 10-08-2024 Lymphocytes (Bld) [#/Vol] 2.32 10*3/uL 0.83-4.51 [facility] Lymphocytes/100 WBC Auto (Un sp spec)Ordered By: Gaetano Tilley on 10-08-2024 Lymphocytes/100 WBC (Bld) 47.0 % High 19-41 [facility] MCV (mean corpuscular volume ) determinationOrdered By: Gaetano Tilley on 10-08-2024 MCV (RBC) [Entitic vol] 98.1 fL 81-99 [facility] Mean corpuscular hemoglobin (MCH) determinationOrdered By: Gaetano Tilley on 10-08-2024 MCH (RBC) [Entitic mass] 32.5 pg High 27.0-32.0 [facility] Mean corpuscular hemoglobin concentration (MCHC) determinationOrdered By: Gaetano Tilley on 10-08-2024 MCHC (RBC) [Mass/Vol] 33.2 g/dL 32-36 [facility] Mean platelet volume determi nationOrdered By: Gaetano Tilley on 10-08-2024 Platelet mean volume (Bld) [Entitic vol] 9.9 fL 6.2-12.0 [facility] Monocyte percentageOrdered B y: Gaetano Tilley on 10-08-2024 Monocytes/100 WBC (Bld) 8.7 % 0-10 [facility] Neutrophil percentageOrdered By: Gaetano Tilley on 10-08-2024 Neutrophils/100 WBC (Bld) 42.3 % Low 47-70 [facility] Nucleated red blood cell per centageOrdered By: Gaetano Tilley on 10-08-2024 Nucleated RBC/100 WBC (Bld) [Ratio] 0 % 0-5 [facility] Platelet countOrdered By: Ting Tilley on 10-08-2024 Platelets (Bld) [#/Vol] 293 10*3/uL 150-450 [facility] Potassium measurementOrdered By: Gaetano Tilley on 10-08-2024 Potassium [Moles/Vol] 3.6 mmol/L 3.5-5.1 [facility] RBC Auto (Bld) [#/Vol]Ordere d By: Gaetano Tilley on 10-08-2024 RBC (Bld) [#/Vol] 4.21 10*6/uL 4.2-5.4 [facility] Serum anion gap measurementO rdered By: Gaetano Tilley on 10-08-2024 Anion gap [Moles/Vol] 8 mmol/L 5-15 [facility] Serum globulin measurementOr dered By: Gaetano Tilley on 10-08-2024 Globulin (S) [Mass/Vol] 3.0 g/dL 2.2-4.2 [facility] Serum or plasma alanine parkinson otransferase (ALT) measurementOrdered By: Gaetano Tilley on 10-08-2024 ALT [Catalytic activity/Vol] 20 U/L 13-56 [facility] Serum or plasma albumin lamine urement (mass/volume)Ordered By: Gaetano Tilley on 10-08-2024 Albumin [Mass/Vol] 4.0 g/dL 3.2-5.0 [facility] Serum or plasma alkaline heike sphatase measurementOrdered By: Gaetano Tilley on 10-08-2024 ALP [Catalytic activity/Vol] 59 U/L 45-117 [facility] Serum or plasma calcium lamine urement (mass/volume)Ordered By: Gaetano Tilley on 10-08-2024 Calcium [Mass/Vol] 9.4 mg/dL 8.5-10.1 [facility] Serum or plasma cholesterol measurement (mass/volume)Ordered By: Gaetano Tilley on 10-08-2024 Cholesterol [Mass/Vol] 341 mg/dL High <200 [facility] Comment on above: <200 mg/dL Desirable 200-240 mg/dL Borderline >240 mg/dL High Risk Serum or plasma creatinine m easurement (mass/volume)Ordered By: Gaetano Tilley on 10-08-2024 Creatinine [Mass/Vol] 0.74 mg/dL 0.55-1.02 [facility] Comment on above: The validity of the calculated GFR & GFRAA in patients over 70 years has not been determined. Clinical correlation is essential. Serum or plasma urea nitroge n measurement (mass/volume)Ordered By: Gaetano Tilley on 10-08-2024 Urea nitrogen [Mass/Vol] 12 mg/dL 7-18 [facility] Sodium levelOrdered By: Gaetano Tilley on 10-08-2024 Sodium [Moles/Vol] 141 mmol/L 136-145 [facility] T4 Free Directon 10-08-2024 T4 FREE DIRECT 0.95 ng/dL Normal 0.76-1.46 [facility] Comment on above: Order Comment: DR. Helga RADFORD GETS EVERYTHING DR. MATUTE GETS CBCD CMP Order Date: 06/15/24 Order Info: [id number] - CMP Order Date: 03/08/24 Order Info: [id number] - LIPID Order Info: 3 - TSH Order Info: [id number] - T4F Performed By: #### L 506.0400, L501.9520 #### [facility] [address] [place], [place], [address] TSH QnOrdered By: Gaetano grace on 10-08-2024 Thyroid Stimulating Hormone (TSH) 8.110 uIU/mL High 0.358-3.740 [facility] Thyroid Stim Hormone (TSH)on 10-08-2024 TSH 8.110 uIU/mL High 0.358-3.740 [facility] Comment on above: Order Comment: DR. Helga RADFORD GETS EVERYTHING DR. MATUTE GETS CBCD CMP Order Date: 06/15/24 Order Info: [id number] - CMP Order Date: 03/08/24 Order Info: [id number] - LIPID Order Info: 3 - TSH Order Info: [id number] - T4F Performed By: #### L 506.0400, [id number] #### [facility] [address] [place], [address] Total proteinOrdered By: Venkat Tilley on 10-08-2024 Protein [Mass/Vol] 7.0 g/dL 6.4-8.2 [facility] Triglycerides measurementOrd ered By: Gaetano Tilley on 10-08-2024 Triglyceride [Mass/Vol] 184 mg/dL <199 [facility] Comment on above: The drugs N-Acetylcy steine and Metamizole may falsely depress this assay.Serum Triglycerides Reference Interval Normal <150 mg/dL Borderline high 150 - 199 mg/dL High 200 - 499 mg/dL Very High > or = 500 mg/dL Very low density lipoprotein (VLDL) cholesterol measurementOrdered By: Gaetano Tilley on 10-08-2024 VLDL Cholesterol 37 mg/dL 5-40 [facility] Vitamin D,25 Hydroxyon 10-08 Vitamin D 25-OH 31.8 ng/mL Normal [facility] Comment on above: Order Comment: Order Date: 10/24/24 Order Info: [id number] - CMP Order Info: [id number] - LIPID Order Date: 03/08/24 Order Info: [id number] - MG Order Info: [id number] - TSH Order Info: [id number] - T4F Result Comment: Libby min D 25(OH) Status Range Deficiency <20 ng/mL (50nmol/L) Insufficiency 20 - 30 ng/mL (50 - 75 nmol/L) Sufficiency 30 - 100 ng/mL (75 - 250 nmol/L) Toxicity >100 ng/mL (>250 nmol/L) Performed By: #### L 506.0400, L500.4100, L501.9520, L506.1000, L500.4050, L100.0100 #### [facility] [address] [place], [address] White blood cell (WBC) count Ordered By: Gaetano Tilley on 10-08-2024 WBC (Bld) [#/Vol] 4.9 10*3/uL 4.4-11.0 [facility] - Chemistry and C hemistry - challengeOrdered By: Gaetano Tilley on 03-08-2024 CK [Catalytic activity/Vol] 50 U/L 26-192 [facility] Ferritin [Mass/Vol] 69 ng/mL 8-252 [facility] Magnesium [Mass/Vol] 2.1 mg/dL 1.6-2.6 [facility] No Panel InformationOrdered By: Gaetano Tilley on 03-08-2024 Thyroglobulin Antibody < 1.0 IU/mL 0.0-0.9 [facility] Comment on above: Thyroglobulin Antibo dy measured by Sohail CoulterMethodologyIt should be noted that the presence of thyroglobulinantibodies may not be pathogenic nor diagnostic, especiallyat very low levels. The assay ceramic engineering professor has found thatfour percent of individuals without evidence of thyroiddisease or autoimmunity will have positive TgAb levels upto 4 IU/mL.Performed at: [address] [id number] Director: Jamie Nixon PhD, Phone: [phone] Serum or plasma thyroperoxid ase antibody assay (units/volume)Ordered By: Gaetano Tilley on 03-08-2024 TPO Ab Qn 32 [IU]/mL 0-34 [facility] Thin prep Papanicolaou smear with manual screeningOrdered By: Gaetano Tilley on 03-08-2024 Thin prep Papanicolaou smear with manual screening 1.02 ng/dL 0.76-1.46 [facility] Absolute lymphocyte countOrd ered By: Gaetano Tilley on 02-24-2024 Lymphocytes Auto (Unsp spec) [#/Vol] 1.87 10*3/uL 0.83-4.51 [facility] Automated lymphocyte count a s percentage of total leukocytesOrdered By: Gaetano Tilley on 02-24-2024 Lymphocytes/100 WBC Auto (Unsp spec) 48.2 % 19-41 [facility] Basophil percentageOrdered B y: Gaetano Tilley on 02-24-2024 Basophils/100 WBC (Bld) 0.8 % 0-1 [facility] Bilirubin [Mass/Vol] 0.50 mg/dL 0.20-1.00 [facility] Comment on above: For patients on eltr ombopag therapy, use of Dimension [place] TBIL is not recommended. Chloride [Moles/Vol] 109 mmol/L 98-107 [facility] Cholesterol [Mass/Vol] 202 mg/dL <200 [facility] Comment on above: <200 mg/dL Desirable 200-240 mg/dL Borderline >240 mg/dL High Risk Eosinophils/100 WBC (Bld) 1.8 % 0-5 [facility] Glucose [Mass/Vol] 92 mg/dL 74-106 [facility] Hemoglobin (Bld) [Mass/Vol] 13.1 g/dL 12.0-15.0 [facility] Monocytes/100 WBC (Bld) 9.0 % 0-10 [facility] Neutrophils (Bld) [#/Vol] 1.6 10*3/uL 2.0-7.7 [facility] Neutrophils/100 WBC (Bld) 39.9 % 47-70 [facility] Potassium [Moles/Vol] 4.0 mmol/L 3.5-5.1 [facility] Protein [Mass/Vol] 6.7 g/dL 6.4-8.2 [facility] Sodium [Moles/Vol] 141 mmol/L 136-145 [facility] Triglyceride [Mass/Vol] 202 mg/dL <199 [facility] Comment on above: The drugs N-Acetylcy steine and Metamizole may falsely depress this assay.Serum Triglycerides Reference Interval Normal <150 mg/dL Borderline high 150 - 199 mg/dL High 200 - 499 mg/dL Very High > or = 500 mg/dL WBC (Bld) [#/Vol] 3.9 10*3/uL 4.4-11.0 [facility] Bilirubin Test strip Ql (U)O rdered By: Gaetano Tilley on 02-24-2024 Bilirubin Ql (U) Negative Negative [facility] Determination of erythrocyte mean corpuscular volume (MCV)Ordered By: Gaetano Tilley on 02-24-2024 MCV (RBC) [Entitic vol] 101.5 fL 81-99 [facility] Erythrocyte distribution wid th ratioOrdered By: Gaetano Tilley on 02-24-2024 Erythrocyte distribution width (RBC) [Ratio] 13.4 % 11.6-14.6 [facility] Erythrocyte distribution wid th standard deviationOrdered By: Gaetano Tilley on 02-24-2024 Erythrocyte distribution width (RBC) [Entitic vol] 50.5 fL 35.1-43.9 [facility] Hematocrit Auto (Bld) [Volum e fraction]Ordered By: Gaetano Tilley on 02-24-2024 Hematocrit (Bld) [Volume fraction] 40.6 % 37-47 [facility] Immature granulocytes/100 WB C Auto (Bld)Ordered By: Gaetano Tilley on 02-24-2024 Immature granulocytes/100 WBC (Bld) 0.300 % 0.0-0.9 [facility] Comment on above: IG% - Immature Granu locytes (promyelocytes, myelocytes and metamyelocytes) > 1% indicates that a LEFT SHIFT is Present. Ketones Test strip Ql (U)Ord ered By: Gaetano Tilley on 02-24-2024 Ketones Ql (U) Negative Negative [facility] - Chemistry and C hemistry - challengeOrdered By: Gaetano Tilley on 02-24-2024 Albumin/Globulin [Mass ratio] 1.4 {ratio} 0.9-2.4 [facility] ALP [Catalytic activity/Vol] 51 U/L 45-117 [facility] ALT [Catalytic activity/Vol] 20 U/L 13-56 [facility] Cholesterol in HDL [Mass/Vol] 76 mg/dL >40 [facility] Comment on above: The drugs N-Acetylcy steine and Metamizole may falsely depress this assay. Reference Range HDL <40 mg/dL Low HDL Cholesterol HDL >or= 60 mg/dL High HDL Cholesterol Cholesterol in LDL [Mass/Vol] 86 mg/dL 0-130 [facility] CO2 [Moles/Vol] 26.0 mmol/L 21.0-32.0 [facility] Globulin (S) [Mass/Vol] 2.8 g/dL 2.2-4.2 [facility] Urea nitrogen/Creatinine [Mass ratio] 11.2 mg/mg 10-20 [facility] - Hematology and Cell countsOrdered By: Gaetano Tilley on 02-24-2024 MCH (RBC) [Entitic mass] 32.8 pg 27.0-32.0 [facility] MCHC (RBC) [Mass/Vol] 32.3 g/dL 32-36 [facility] Nucleated RBC/100 WBC (Bld) [Ratio] 0 % 0-5 [facility] Platelet mean volume (Bld) [Entitic vol] 10.9 fL 6.2-12.0 [facility] Platelets (Bld) [#/Vol] 254 10*3/uL 150-450 [facility] Nitrite Test strip Ql (U)Ord ered By: Gaetano Tilley on 02-24-2024 Nitrite Ql (U) Negative Negative [facility] No Panel InformationOrdered By: Gaetano Tilley on 02-24-2024 Estimated GFR (MDRD) Amer 122 mL/min >60 [facility] Comment on above: GFR Calc Estimated GFR (MDRD) Non-Af Amer 101 mL/min >60 [facility] Comment on above: Non- GFR Calc Vitamin D 25-Hydroxy 35.1 ng/mL [facility] Comment on above: Vitamin D 25(OH) Sta tus Range Deficiency <20 ng/mL (50nmol/L) Insufficiency 20 - 30 ng/mL (50 - 75 nmol/L) Sufficiency 30 - 100 ng/mL (75 - 250 nmol/L) Toxicity >100 ng/mL (>250 nmol/L) VLDL Cholesterol 40 mg/dL 5-40 [facility] Protein Test strip Ql (U)Ord ered By: Gaetano Tilley on 02-24-2024 Protein Ql (U) Negative Negative [facility] RBC Auto (Bld) [#/Vol]Ordere d By: Gaetano Tilley on 02-24-2024 RBC (Bld) [#/Vol] 4.00 10*6/uL 4.2-5.4 [facility] Serum or plasma calcium lamine urement (mass/volume)Ordered By: Gaetano Tilley on 02-24-2024 Calcium [Mass/Vol] 9.2 mg/dL 8.5-10.1 [facility] Serum or plasma creatinine m easurement (mass/volume)Ordered By: Gaetano Tilley on 02-24-2024 Creatinine [Mass/Vol] 0.63 mg/dL 0.55-1.02 [facility] Comment on above: The validity of the calculated GFR & GFRAA in patients over 70 years has not been determined. Clinical correlation is essential. Serum or plasma thyroid stim ulating hormone (TSH) measurement (units/volume)Ordered By: Gaetano Tilley on 02-24-2024 TSH Qn 4.65 uIU/mL 0.358-3.74 [facility] Serum or plasma urea nitroge n measurement (mass/volume)Ordered By: Gaetano Tilley on 02-24-2024 Urea nitrogen [Mass/Vol] 7 mg/dL 7-18 [facility] Thin prep Papanicolaou smear with manual screeningOrdered By: Gaetano Tilley on 02-24-2024 Thin prep Papanicolaou smear with manual screening 3.9 g/dL 3.2-5.0 [facility] Thin prep Papanicolaou smear with manual screening 20 U/L 15-37 [facility] Thin prep Papanicolaou smear with manual screening 6 5-15 [facility] Urine blood detectionOrdered By: Gaetano Tilley on 02-24-2024 RBC Ql (U) Negative Negative [facility] Urine clarityOrdered By: Venkat Tilley on 02-24-2024 Clarity (U) Clear Clear [facility] Urine color determinationOrd ered By: Gaetano Tilley on 02-24-2024 Color (U) Yellow Yellow [facility] Urine glucose detectionOrder ed By: Gaetano Tilley on 02-24-2024 Glucose Ql (U) Normal mg/dl Normal [facility] Urine leukocyte esterase det ection by dipstickOrdered By: Gaetano Tilley on 02-24-2024 Leukocyte esterase Test strip Ql (U) Negative Negative [facility] Urine pHOrdered By: Gaetano wilkerson on 02-24-2024 pH (U) 7.0 [pH] 5.0 - 8.0 [facility] Urine specific gravity measu rementOrdered By: Gaetano Tilley on 02-24-2024 Specific gravity (U) [Rel density] 1.005 1.002-1.030 [facility] Urine urobilinogen measureme ntOrdered By: Gaetano Tilley on 02-24-2024 Urobilinogen Ql (U) Normal mg/dl Normal [facility] Absolute lymphocyte countOrd ered By: Gaetano Tilley on 12-13-2023 Lymphocytes Auto (Unsp spec) [#/Vol] 3.15 10*3/uL 0.83-4.51 [facility] Automated lymphocyte count a s percentage of total leukocytesOrdered By: Gaetano Alison on 12-13-2023 Lymphocytes/100 WBC Auto (Unsp spec) 54.5 % 19-41 [facility] Basophil percentageOrdered B y: Gaetano Simonlesly on 12-13-2023 Basophil percentage 0-5 SEEN /hpf 0-5 [facility] Basophils/100 WBC (Bld) 0.5 % 0-1 [facility] Bilirubin [Mass/Vol] 0.40 mg/dL 0.20-1.00 [facility] Comment on above: For patients on eltr ombopag therapy, use of Dimension [place] TBIL is not recommended. Chloride [Moles/Vol] 109 mmol/L 98-107 [facility] Cholesterol [Mass/Vol] 343 mg/dL <200 [facility] Comment on above: <200 mg/dL Desirable 200-240 mg/dL Borderline >240 mg/dL High Risk Eosinophils/100 WBC (Bld) 0.9 % 0-5 [facility] Glucose [Mass/Vol] 90 mg/dL 74-106 [facility] Hemoglobin (Bld) [Mass/Vol] 12.4 g/dL 12.0-15.0 [facility] Monocytes/100 WBC (Bld) 9.3 % 0-10 [facility] Neutrophils (Bld) [#/Vol] 2.0 10*3/uL 2.0-7.7 [facility] Neutrophils/100 WBC (Bld) 34.6 % 47-70 [facility] Potassium [Moles/Vol] 3.5 mmol/L 3.5-5.1 [facility] Protein [Mass/Vol] 6.4 g/dL 6.4-8.2 [facility] Sodium [Moles/Vol] 140 mmol/L 136-145 [facility] Triglyceride [Mass/Vol] 169 mg/dL <199 [facility] Comment on above: The drugs N-Acetylcy steine and Metamizole may falsely depress this assay.Serum Triglycerides Reference Interval Normal <150 mg/dL Borderline high 150 - 199 mg/dL High 200 - 499 mg/dL Very High > or = 500 mg/dL WBC (Bld) [#/Vol] 5.8 10*3/uL 4.4-11.0 [facility] Bilirubin Test strip Ql (U)O rdered By: Gaetano Tilley on 12-13-2023 Bilirubin Ql (U) Negative Negative [facility] Determination of erythrocyte mean corpuscular volume (MCV)Ordered By: Gaetano Tilley on 12-13-2023 MCV (RBC) [Entitic vol] 102.9 fL 81-99 [facility] Erythrocyte distribution wid th ratioOrdered By: Gaetano Tilley on 12-13-2023 Erythrocyte distribution width (RBC) [Ratio] 14.6 % 11.6-14.6 [facility] Erythrocyte distribution wid th standard deviationOrdered By: Gaetano Tilley on 12-13-2023 Erythrocyte distribution width (RBC) [Entitic vol] 55.5 fL 35.1-43.9 [facility] Hematocrit Auto (Bld) [Volum e fraction]Ordered By: Gaetano Tilley on 12-13-2023 Hematocrit (Bld) [Volume fraction] 39.5 % 37-47 [facility] High density lipoprotein (HD L) measurementOrdered By: Gaetano Tilley on 12-13-2023 Cholesterol in HDL (Body fld) [Mass/Vol] 77 mg/dL >40 [facility] Comment on above: The drugs N-Acetylcy steine and Metamizole may falsely depress this assay. Reference Range HDL <40 mg/dL Low HDL Cholesterol HDL >or= 60 mg/dL High HDL Cholesterol Immature granulocytes/100 WB C Auto (Bld)Ordered By: Gaetano Tilley on 12-13-2023 Immature granulocytes/100 WBC (Bld) 0.200 % 0.0-0.9 [facility] Comment on above: IG% - Immature Granu locytes (promyelocytes, myelocytes and metamyelocytes) > 1% indicates that a LEFT SHIFT is Present. Ketones Test strip Ql (U)Ord ered By: Gaetano Tilley on 12-13-2023 Ketones Ql (U) Negative Negative [facility] - Chemistry and C hemistry - challengeOrdered By: Gaetano Tilley on 12-13-2023 Albumin/Globulin [Mass ratio] 1.3 {ratio} 0.9-2.4 [facility] ALP [Catalytic activity/Vol] 49 U/L 45-117 [facility] ALT [Catalytic activity/Vol] 21 U/L 13-56 [facility] CO2 [Moles/Vol] 23.0 mmol/L 21.0-32.0 [facility] Globulin (S) [Mass/Vol] 2.8 g/dL 2.2-4.2 [facility] Magnesium [Mass/Vol] 2.4 mg/dL 1.6-2.6 [facility] Urea nitrogen/Creatinine [Mass ratio] 22.3 mg/mg 10-20 [facility] - Hematology and Cell countsOrdered By: Gaetano Tilley on 12-13-2023 MCH (RBC) [Entitic mass] 32.3 pg 27.0-32.0 [facility] MCHC (RBC) [Mass/Vol] 31.4 g/dL 32-36 [facility] Nucleated RBC/100 WBC (Bld) [Ratio] 0 % 0-5 [facility] Platelets (Bld) [#/Vol] 237 10*3/uL 150-450 [facility] Low density lipoprotein (LDL ) cholesterol measurementOrdered By: Gaetano Tilley on 12-13-2023 Cholesterol in LDL (Body fld) [Moles/Vol] 232 mg/dL 0-130 [facility] Mucus LM Ql (Urine sed)Order ed By: Gaetano Tilley on 12-13-2023 Mucus Ql (Urine sed) 0 SEEN /hpf [facility] Nitrite Test strip Ql (U)Ord ered By: Gaetano Tilley on 12-13-2023 Nitrite Ql (U) Negative Negative [facility] No Panel InformationOrdered By: Gaetano Tilley on 12-13-2023 Estimated GFR (MDRD) Amer 112 mL/min >60 [facility] Comment on above: GFR Calc Estimated GFR (MDRD) Non-Af Amer 93 mL/min >60 [facility] Comment on above: Non- GFR Calc Urine RBC 0 SEEN /hpf 0-5 [facility] Vitamin D 25-Hydroxy 37.7 ng/mL [facility] Comment on above: Vitamin D 25(OH) Sta tus Range Deficiency <20 ng/mL (50nmol/L) Insufficiency 20 - 30 ng/mL (50 - 75 nmol/L) Sufficiency 30 - 100 ng/mL (75 - 250 nmol/L) Toxicity >100 ng/mL (>250 nmol/L) Platelet mean volume Garett-Ec ker (Bld) [Entitic vol]Ordered By: Gaetano Tilley on 12-13-2023 Platelet mean volume (Bld) [Entitic vol] 10.4 fL 6.2-12.0 [facility] Protein Test strip Ql (U)Ord ered By: Gaetano Tilley on 12-13-2023 Protein Ql (U) Negative Negative [facility] RBC Auto (Bld) [#/Vol]Ordere d By: Gaetano Tilley on 12-13-2023 RBC (Bld) [#/Vol] 3.84 10*6/uL 4.2-5.4 [facility] Serum or plasma calcium lamine urement (mass/volume)Ordered By: Gaetano Tilley on 12-13-2023 Calcium [Mass/Vol] 9.3 mg/dL 8.5-10.1 [facility] Serum or plasma creatinine m easurement (mass/volume)Ordered By: Gaetano Tilley on 12-13-2023 Creatinine [Mass/Vol] 0.67 mg/dL 0.55-1.02 [facility] Comment on above: The validity of the calculated GFR & GFRAA in patients over 70 years has not been determined. Clinical correlation is essential. Serum or plasma thyroid stim ulating hormone (TSH) measurement (units/volume)Ordered By: Gaetano Tilley on 12-13-2023 TSH Qn 3.86 uIU/mL 0.358-3.74 [facility] Serum or plasma urea nitroge n measurement (mass/volume)Ordered By: Gaetano Tilley on 12-13-2023 Urea nitrogen [Mass/Vol] 15 mg/dL 7-18 [facility] Squamous epithelial cells de tection in urine sediment by light microscopyOrdered By: Gaetano Tilley on 12-13-2023 Epithelial cells.squamous LM Ql (Urine sed) 0 SEEN /hpf 5-10 [facility] Thin prep Papanicolaou smear with manual screeningOrdered By: Gaetano Tilley on 12-13-2023 Thin prep Papanicolaou smear with manual screening 3.6 g/dL 3.2-5.0 [facility] Thin prep Papanicolaou smear with manual screening 16 U/L 15-37 [facility] Thin prep Papanicolaou smear with manual screening 8 5-15 [facility] Urine blood detectionOrdered By: Gaetano Tilley on 12-13-2023 RBC Ql (U) Negative Negative [facility] Urine clarityOrdered By: Venkat Tilley on 12-13-2023 Clarity (U) Sl. Cloudy Clear [facility] Urine color determinationOrd ered By: Gaetano Tilley on 12-13-2023 Color (U) Yellow Yellow [facility] Urine glucose detectionOrder ed By: Gaetano Tilley on 12-13-2023 Glucose Ql (U) Normal mg/dl Normal [facility] Urine leukocyte esterase det ection by dipstickOrdered By: Gaetano Tilley on 12-13-2023 Leukocyte esterase Test strip Ql (U) 25 /ul Negative [facility] Urine pHOrdered By: Gaetano wilkerson on 12-13-2023 pH (U) 6.5 [pH] 5.0 - 8.0 [facility] Urine sediment bacteria coun t by microscopy (number/high power field)Ordered By: Gaetano Tilley on 12-13-2023 Bacteria LM.HPF (Urine sed) [#/Area] 0 /[HPF] None Seen [facility] Urine specific gravity measu rementOrdered By: Gaetano Tilley on 12-13-2023 Specific gravity (U) [Rel density] 1.010 1.002-1.030 [facility] Urine urobilinogen measureme ntOrdered By: Gaetano Tilley on 12-13-2023 Urobilinogen Ql (U) Normal mg/dl Normal [facility] Very low density lipoprotein (VLDL) cholesterol measurementOrdered By: Gaetano Tilley on 12-13-2023 Cholesterol in VLDL Calc [Moles/Vol] 34 mg/dL 5-40 [facility] Absolute lymphocyte countOrd ered By: Sara Matute on 11-25-2023 Lymphocytes Auto (Unsp spec) [#/Vol] 0.63 10*3/uL 0.83-4.51 [facility] Basophil percentageOrdered B y: Sara Matute on 11-25-2023 Basophils/100 WBC (Bld) 0.3 % 0-1 [facility] Bilirubin [Mass/Vol] 0.60 mg/dL 0.20-1.00 [facility] Comment on above: For patients on eltr ombopag therapy, use of Dimension [place] TBIL is not recommended. Chloride [Moles/Vol] 102 mmol/L 98-107 [facility] Eosinophils/100 WBC (Bld) 0.2 % 0-5 [facility] Glucose [Mass/Vol] 110 mg/dL 74-106 [facility] Comment on above: Fasting Glucose resu lt from 100 to 125 mg/dL suggests IMPAIRED HOMEOSTASIS per A.D.A. criteria. Neutrophils (Bld) [#/Vol] 5.4 10*3/uL 2.0-7.7 [facility] Neutrophils/100 WBC (Bld) 83.8 % 47-70 [facility] Potassium [Moles/Vol] 3.8 mmol/L 3.5-5.1 [facility] Protein [Mass/Vol] 7.3 g/dL 6.4-8.2 [facility] Sodium [Moles/Vol] 138 mmol/L 136-145 [facility] WBC (Bld) [#/Vol] 6.4 10*3/uL 4.4-11.0 [facility] Blood erythrocytes count (nu mber/volume)Ordered By: Sara Matute on 11-25-2023 RBC (Bld) [#/Vol] 4.10 10*6/uL 4.2-5.4 [facility] Blood hemoglobin measurement (mass/volume)Ordered By: Sara Matute on 11-25-2023 Hemoglobin (Bld) [Mass/Vol] 13.3 g/dL 12.0-15.0 [facility] Blood lymphocytes/100 leukoc ytesOrdered By: Sara Matute on 11-25-2023 Lymphocytes/100 WBC (Bld) 9.8 % 19-41 [facility] Blood monocytes/100 leukocyt esOrdered By: Sara Matute on 11-25-2023 Monocytes/100 WBC (Bld) 5.6 % 0-10 [facility] Blood platelet mean volumeOr dered By: Sara Matute on 11-25-2023 Platelet mean volume (Bld) [Entitic vol] 10.5 fL 6.2-12.0 [facility] Determination of erythrocyte mean corpuscular volume (MCV)Ordered By: Sara Matute on 11-25-2023 MCV (RBC) [Entitic vol] 100.5 fL [address] [facility] Hematocrit Auto (Bld) [Volum e fraction]Ordered By: Sara Matute on 11-25-2023 Hematocrit (Bld) [Volume fraction] 41.2 % 37-47 [facility] - Chemistry and C hemistry - challengeOrdered By: Sarajason Matute on 11-25-2023 ALP [Catalytic activity/Vol] 54 U/L 45-117 [facility] ALT [Catalytic activity/Vol] 19 U/L 13-56 [facility] CO2 [Moles/Vol] 26.0 mmol/L 21.0-32.0 [facility] Globulin (S) [Mass/Vol] 3.7 g/dL 2.2-4.2 [facility] Urea nitrogen/Creatinine [Mass ratio] 12.5 mg/mg 10-20 [facility] - Hematology and Cell countsOrdered By: Sarajason Matute on 11-25-2023 Erythrocyte distribution width (RBC) [Entitic vol] 51.8 fL 35.1-43.9 [facility] Erythrocyte distribution width (RBC) [Ratio] 14.1 % 11.6-14.6 [facility] Immature granulocytes/100 WBC (Bld) 0.300 % 0.0-0.9 [facility] Comment on above: IG% - Immature Granu locytes (promyelocytes, myelocytes and metamyelocytes) > 1% indicates that a LEFT SHIFT is Present. MCH (RBC) [Entitic mass] 32.4 pg 27.0-32.0 [facility] Nucleated RBC/100 WBC (Bld) [Ratio] 0 % 0-5 [facility] MCHC Auto (RBC) [Mass/Vol]Or dered By: Sara Matute on 11-25-2023 MCHC (RBC) [Mass/Vol] 32.3 g/dL 32-36 [facility] No Panel InformationOrdered By: Sara Matute on 11-25-2023 Estimated GFR (MDRD) Amer 105 mL/min >60 [facility] Comment on above: GFR Calc Estimated GFR (MDRD) Non-Af Amer 86 mL/min >60 [facility] Comment on above: Non- GFR Calc Platelets bldOrdered By: Deuce Matute on 11-25-2023 Platelets (Bld) [#/Vol] 227 10*3/uL 150-450 [facility] Serum or plasma albumin lamine urement (mass/volume)Ordered By: Sara Matute on 11-25-2023 Albumin [Mass/Vol] 3.6 g/dL 3.2-5.0 [facility] Serum or plasma albumin/glob ulin mass ratioOrdered By: Sara Matute on 11-25-2023 Albumin/Globulin [Mass ratio] 1.0 {ratio} 0.9-2.4 [facility] Serum or plasma calcium lamine urement (mass/volume)Ordered By: Sara Matute on 11-25-2023 Calcium [Mass/Vol] 8.9 mg/dL 8.5-10.1 [facility] Serum or plasma creatinine m easurement (mass/volume)Ordered By: Sara Matute on 11-25-2023 Creatinine [Mass/Vol] 0.72 mg/dL 0.55-1.02 [facility] Comment on above: The validity of the calculated GFR & GFRAA in patients over 70 years has not been determined. Clinical correlation is essential. Serum or plasma urea nitroge n measurement (mass/volume)Ordered By: Sara Matute on 11-25-2023 Urea nitrogen [Mass/Vol] 9 mg/dL 7-18 [facility] Thin prep Papanicolaou smear with manual screeningOrdered By: Sara Matute on 11-25-2023 Thin prep Papanicolaou smear with manual screening 23 U/L 15-37 [facility] Thin prep Papanicolaou smear with manual screening 10 5-15 [facility] Absolute lymphocyte countOrd ered By: Sara Matute on 08-24-2023 Lymphocytes Auto (Unsp spec) [#/Vol] 1.77 10*3/uL 0.83-4.51 [facility] Basophil percentageOrdered B y: Sara Matute on 08-24-2023 Basophils/100 WBC (Bld) 0.7 % 0-1 [facility] Bilirubin [Mass/Vol] 0.50 mg/dL 0.20-1.00 [facility] Comment on above: For patients on eltr ombopag therapy, use of Dimension [place] TBIL is not recommended. Chloride [Moles/Vol] 109 mmol/L 98-107 [facility] Eosinophils/100 WBC (Bld) 1.3 % 0-5 [facility] Glucose [Mass/Vol] 89 mg/dL 74-106 [facility] Neutrophils (Bld) [#/Vol] 2.4 10*3/uL 2.0-7.7 [facility] Neutrophils/100 WBC (Bld) 51.1 % 47-70 [facility] Potassium [Moles/Vol] 4.0 mmol/L 3.5-5.1 [facility] Protein [Mass/Vol] 6.7 g/dL 6.4-8.2 [facility] Sodium [Moles/Vol] 140 mmol/L 136-145 [facility] WBC (Bld) [#/Vol] 4.6 10*3/uL 4.4-11.0 [facility] Blood erythrocytes count (nu mber/volume)Ordered By: Sara Matute on 08-24-2023 RBC (Bld) [#/Vol] 4.09 10*6/uL 4.2-5.4 [facility] Blood hemoglobin measurement (mass/volume)Ordered By: Sara Matute on 08-24-2023 Hemoglobin (Bld) [Mass/Vol] 13.5 g/dL 12.0-15.0 [facility] Blood lymphocytes/100 leukoc ytesOrdered By: Sara Mautte on 08-24-2023 Lymphocytes/100 WBC (Bld) 38.6 % 19-41 [facility] Blood monocytes/100 leukocyt esOrdered By: Sara Matute on 08-24-2023 Monocytes/100 WBC (Bld) 8.3 % 0-10 [facility] Blood platelet mean volumeOr dered By: Sara Matute on 08-24-2023 Platelet mean volume (Bld) [Entitic vol] 10.1 fL 6.2-12.0 [facility] Determination of erythrocyte mean corpuscular volume (MCV)Ordered By: Sara Matute on 08-24-2023 MCV (RBC) [Entitic vol] 102.9 fL 81-99 [facility] Hematocrit Auto (Bld) [Volum e fraction]Ordered By: Sara Mattue on 08-24-2023 Hematocrit (Bld) [Volume fraction] 42.1 % 37-47 [facility] - Chemistry and C hemistry - challengeOrdered By: Sarajason Matute on 08-24-2023 ALP [Catalytic activity/Vol] 58 U/L 45-117 [facility] ALT [Catalytic activity/Vol] 27 U/L 13-56 [facility] CO2 [Moles/Vol] 27.0 mmol/L 21.0-32.0 [facility] Globulin (S) [Mass/Vol] 3.0 g/dL 2.2-4.2 [facility] Urea nitrogen/Creatinine [Mass ratio] 14.7 mg/mg 10-20 [facility] - Hematology and Cell countsOrdered By: Sara Matute on 08-24-2023 Erythrocyte distribution width (RBC) [Entitic vol] 50.4 fL 35.1-43.9 [facility] Erythrocyte distribution width (RBC) [Ratio] 13.2 % 11.6-14.6 [facility] Immature granulocytes/100 WBC (Bld) 0.000 % 0.0-0.9 [facility] Comment on above: IG% - Immature Granu locytes (promyelocytes, myelocytes and metamyelocytes) > 1% indicates that a LEFT SHIFT is Present. MCH (RBC) [Entitic mass] 33.0 pg 27.0-32.0 [facility] Nucleated RBC/100 WBC (Bld) [Ratio] 0 % 0-5 [facility] MCHC Auto (RBC) [Mass/Vol]Or dered By: Sara Matute on 08-24-2023 MCHC (RBC) [Mass/Vol] 32.1 g/dL 32-36 [facility] No Panel InformationOrdered By: Sara Matute on 08-24-2023 Estimated GFR (MDRD) Amer 126 mL/min >60 [facility] Comment on above: GFR Calc Estimated GFR (MDRD) Non-Af Amer 104 mL/min >60 [facility] Comment on above: Non- GFR Calc Platelets bldOrdered By: Deuce Matute on 08-24-2023 Platelets (Bld) [#/Vol] 241 10*3/uL 150-450 [facility] Serum or plasma albumin lamine urement (mass/volume)Ordered By: Sara Matute on 08-24-2023 Albumin [Mass/Vol] 3.7 g/dL 3.2-5.0 [facility] Serum or plasma albumin/glob ulin mass ratioOrdered By: Sara Matute on 08-24-2023 Albumin/Globulin [Mass ratio] 1.2 {ratio} 0.9-2.4 [facility] Serum or plasma calcium lamine urement (mass/volume)Ordered By: Sara Matute on 08-24-2023 Calcium [Mass/Vol] 8.8 mg/dL 8.5-10.1 [facility] Serum or plasma creatinine m easurement (mass/volume)Ordered By: Sara Matute on 08-24-2023 Creatinine [Mass/Vol] 0.61 mg/dL 0.55-1.02 [facility] Comment on above: The validity of the calculated GFR & GFRAA in patients over 70 years has not been determined. Clinical correlation is essential. Serum or plasma urea nitroge n measurement (mass/volume)Ordered By: Sara Matute on 08-24-2023 Urea nitrogen [Mass/Vol] 9 mg/dL 7-18 [facility] Thin prep Papanicolaou smear with manual screeningOrdered By: Sara Matute on 08-24-2023 Thin prep Papanicolaou smear with manual screening 20 U/L 15-37 [facility] Thin prep Papanicolaou smear with manual screening 4 5-15 [facility] Absolute lymphocyte countOrd ered By: Dr. Matute on 04-27-2023 Lymphocytes Auto (Unsp spec) [#/Vol] 1.75 10*3/uL 0.83-4.51 [facility] Basophil percentageOrdered B y: Dr. Matute on 04-27-2023 Basophils/100 WBC (Bld) 0.5 % 0-1 [facility] Bilirubin [Mass/Vol] 0.60 mg/dL 0.20-1.00 [facility] Comment on above: For patients on eltr ombopag therapy, use of Dimension [place] TBIL is not recommended. Chloride [Moles/Vol] 108 mmol/L 98-107 [facility] Eosinophils/100 WBC (Bld) 1.6 % 0-5 [facility] Glucose [Mass/Vol] 86 mg/dL 74-106 [facility] Neutrophils (Bld) [#/Vol] 1.8 10*3/uL 2.0-7.7 [facility] Neutrophils/100 WBC (Bld) 45.3 % 47-70 [facility] Potassium [Moles/Vol] 4.0 mmol/L 3.5-5.1 [facility] Protein [Mass/Vol] 6.8 g/dL 6.4-8.2 [facility] Sodium [Moles/Vol] 143 mmol/L 136-145 [facility] WBC (Bld) [#/Vol] 3.9 10*3/uL 4.4-11.0 [facility] Blood erythrocytes count (nu mber/volume)Ordered By: Dr. Matute on 04-27-2023 RBC (Bld) [#/Vol] 4.15 10*6/uL 4.2-5.4 [facility] Blood hemoglobin measurement (mass/volume)Ordered By: Dr. Matute on 04-27-2023 Hemoglobin (Bld) [Mass/Vol] 13.3 g/dL 12.0-15.0 [facility] Blood lymphocytes/100 leukoc ytesOrdered By: Dr. Matute on 04-27-2023 Lymphocytes/100 WBC (Bld) 45.3 % 19-41 [facility] Blood monocytes/100 leukocyt esOrdered By: Dr. Matute on 04-27-2023 Monocytes/100 WBC (Bld) 7.0 % 0-10 [facility] Blood platelet mean volumeOr dered By: Dr. Matute on 04-27-2023 Platelet mean volume (Bld) [Entitic vol] 10.5 fL 6.2-12.0 [facility] Determination of erythrocyte mean corpuscular volume (MCV)Ordered By: Dr. Matute on 04-27-2023 MCV (RBC) [Entitic vol] 100.7 fL 81-99 [facility] Hematocrit Auto (Bld) [Volum e fraction]Ordered By: Dr. Matute on 04-27-2023 Hematocrit (Bld) [Volume fraction] 41.8 % 37-47 [facility] - Chemistry and C hemistry - challengeOrdered By: Dr. Matute on 04-27-2023 ALP [Catalytic activity/Vol] 66 U/L 45-117 [facility] ALT [Catalytic activity/Vol] 23 U/L 13-56 [facility] CO2 [Moles/Vol] 28.0 mmol/L 21.0-32.0 [facility] Globulin (S) [Mass/Vol] 2.9 g/dL 2.2-4.2 [facility] Urea nitrogen/Creatinine [Mass ratio] 12.3 mg/mg 10-20 [facility] - Hematology and Cell countsOrdered By: Dr. Matute on 04-27-2023 Erythrocyte distribution width (RBC) [Entitic vol] 50.2 fL 35.1-43.9 [facility] Erythrocyte distribution width (RBC) [Ratio] 13.5 % 11.6-14.6 [facility] Immature granulocytes/100 WBC (Bld) 0.300 % 0.0-0.9 [facility] Comment on above: IG% - Immature Granu locytes (promyelocytes, myelocytes and metamyelocytes) > 1% indicates that a LEFT SHIFT is Present. MCH (RBC) [Entitic mass] 32.0 pg 27.0-32.0 [facility] Nucleated RBC/100 WBC (Bld) [Ratio] 0 % 0-5 [facility] MCHC Auto (RBC) [Mass/Vol]Or dered By: Dr. Matute on 04-27-2023 MCHC (RBC) [Mass/Vol] 31.8 g/dL 32-36 [facility] No Panel InformationOrdered By: Dr. Matute on 04-27-2023 Estimated GFR (MDRD) Amer 118 mL/min >60 [facility] Comment on above: GFR Calc Estimated GFR (MDRD) Non-Af Amer 97 mL/min >60 [facility] Comment on above: Non- GFR Calc Platelets bldOrdered By: Dr. Matute on 04-27-2023 Platelets (Bld) [#/Vol] 245 10*3/uL 150-450 [facility] Serum or plasma albumin lamine urement (mass/volume)Ordered By: Dr. Matute on 04-27-2023 Albumin [Mass/Vol] 3.9 g/dL 3.2-5.0 [facility] Serum or plasma albumin/glob ulin mass ratioOrdered By: Dr. Matute on 04-27-2023 Albumin/Globulin [Mass ratio] 1.3 {ratio} 0.9-2.4 [facility] Serum or plasma calcium lamine urement (mass/volume)Ordered By: Dr. Matute on 04-27-2023 Calcium [Mass/Vol] 9.3 mg/dL 8.5-10.1 [facility] Serum or plasma creatinine m easurement (mass/volume)Ordered By: Dr. Matute on 04-27-2023 Creatinine [Mass/Vol] 0.65 mg/dL 0.55-1.02 [facility] Comment on above: The validity of the calculated GFR & GFRAA in patients over 70 years has not been determined. Clinical correlation is essential. Serum or plasma urea nitroge n measurement (mass/volume)Ordered By: Dr. Matute on 04-27-2023 Urea nitrogen [Mass/Vol] 8 mg/dL 7-18 [facility] Thin prep Papanicolaou smear with manual screeningOrdered By: Dr. Matute on 04-27-2023 Thin prep Papanicolaou smear with manual screening 25 U/L 15-37 [facility] Thin prep Papanicolaou smear with manual screening 7 5-15 [facility] Basophil percentageOrdered B y: Dr. Tilley on 04-22-2023 Chloride [Moles/Vol] 104 mmol/L 98-107 [facility] Glucose [Mass/Vol] 93 mg/dL 74-106 [facility] Potassium [Moles/Vol] 3.9 mmol/L 3.5-5.1 [facility] Sodium [Moles/Vol] 139 mmol/L 136-145 [facility] - Chemistry and C hemistry - challengeOrdered By: Dr. Tilley on 04-22-2023 CO2 [Moles/Vol] 27.0 mmol/L 21.0-32.0 [facility] Urea nitrogen/Creatinine [Mass ratio] 14.5 mg/mg 10-20 [facility] No Panel InformationOrdered By: Dr. Tilley on 04-22-2023 Estimated GFR (MDRD) Amer 99 mL/min >60 [facility] Comment on above: GFR Calc Estimated GFR (MDRD) Non-Af Amer 81 mL/min >60 [facility] Comment on above: Non- GFR Calc Serum or plasma calcium lamine urement (mass/volume)Ordered By: Dr. Tilley on 04-22-2023 Calcium [Mass/Vol] 9.6 mg/dL 8.5-10.1 [facility] Serum or plasma creatinine m easurement (mass/volume)Ordered By: Dr. Tilley on 04-22-2023 Creatinine [Mass/Vol] 0.76 mg/dL 0.55-1.02 [facility] Comment on above: The validity of the calculated GFR & GFRAA in patients over 70 years has not been determined. Clinical correlation is essential. Serum or plasma urea nitroge n measurement (mass/volume)Ordered By: Dr. Tilley on 04-22-2023 Urea nitrogen [Mass/Vol] 11 mg/dL 7-18 [facility] Thin prep Papanicolaou smear with manual screeningOrdered By: Dr. Tilley on 04-22-2023 Thin prep Papanicolaou smear with manual screening 8 5-15 [facility] Basophil percentageOrdered B y: Dr. Nova on 04-15-2023 Basophil percentage < 0.9 mg/dL 0.55-1.02 [facility] No Panel InformationOrdered By: Dr. Nova on 04-15-2023 Bedside Estimated GFR (eGFR) > 60.0000 mL/min >60 [facility] Absolute lymphocyte countOrd ered By: Dr. Matute on 01-31-2023 Lymphocytes Auto (Unsp spec) [#/Vol] 1.56 10*3/uL 0.83-4.51 [facility] Basophil percentageOrdered B y: Dr. Matute on 01-31-2023 Basophils/100 WBC (Bld) 0.8 % 0-1 [facility] Bilirubin [Mass/Vol] 0.50 mg/dL 0.20-1.00 [facility] Comment on above: For patients on eltr ombopag therapy, use of Dimension [place] TBIL is not recommended. Chloride [Moles/Vol] 105 mmol/L 98-107 [facility] Eosinophils/100 WBC (Bld) 1.0 % 0-5 [facility] Glucose [Mass/Vol] 96 mg/dL 74-106 [facility] Neutrophils (Bld) [#/Vol] 1.8 10*3/uL 2.0-7.7 [facility] Neutrophils/100 WBC (Bld) 45.9 % 47-70 [facility] Potassium [Moles/Vol] 3.8 mmol/L 3.5-5.1 [facility] Protein [Mass/Vol] 6.9 g/dL 6.4-8.2 [facility] Sodium [Moles/Vol] 140 mmol/L 136-145 [facility] WBC (Bld) [#/Vol] 4.0 10*3/uL 4.4-11.0 [facility] Blood erythrocytes count (nu mber/volume)Ordered By: Dr. Matute on 01-31-2023 RBC (Bld) [#/Vol] 4.22 10*6/uL 4.2-5.4 [facility] Blood hemoglobin measurement (mass/volume)Ordered By: Dr. Matute on 01-31-2023 Hemoglobin (Bld) [Mass/Vol] 13.6 g/dL 12.0-15.0 [facility] Blood lymphocytes/100 leukoc ytesOrdered By: Dr. Matute on 01-31-2023 Lymphocytes/100 WBC (Bld) 39.4 % 19-41 [facility] Blood monocytes/100 leukocyt esOrdered By: Dr. Matute on 01-31-2023 Monocytes/100 WBC (Bld) 12.6 % 0-10 [facility] Blood platelet mean volumeOr dered By: Dr. Matute on 01-31-2023 Platelet mean volume (Bld) [Entitic vol] 10.1 fL 6.2-12.0 [facility] Determination of erythrocyte mean corpuscular volume (MCV)Ordered By: Dr. Matute on 01-31-2023 MCV (RBC) [Entitic vol] 100.5 fL 81-99 [facility] Hematocrit Auto (Bld) [Volum e fraction]Ordered By: Dr. Matute on 01-31-2023 Hematocrit (Bld) [Volume fraction] 42.4 % 37-47 [facility] - Chemistry and C hemistry - challengeOrdered By: Dr. Matute on 01-31-2023 ALP [Catalytic activity/Vol] 62 U/L 45-117 [facility] ALT [Catalytic activity/Vol] 22 U/L 13-56 [facility] CO2 [Moles/Vol] 29.0 mmol/L 21.0-32.0 [facility] Globulin (S) [Mass/Vol] 3.0 g/dL 2.2-4.2 [facility] Urea nitrogen/Creatinine [Mass ratio] 13.8 mg/mg 10-20 [facility] - Hematology and Cell countsOrdered By: Dr. Matute on 01-31-2023 Erythrocyte distribution width (RBC) [Entitic vol] 52.0 fL 35.1-43.9 [facility] Erythrocyte distribution width (RBC) [Ratio] 14.0 % 11.6-14.6 [facility] Immature granulocytes/100 WBC (Bld) 0.300 % 0.0-0.9 [facility] Comment on above: IG% - Immature Granu locytes (promyelocytes, myelocytes and metamyelocytes) > 1% indicates that a LEFT SHIFT is Present. MCH (RBC) [Entitic mass] 32.2 pg 27.0-32.0 [facility] Nucleated RBC/100 WBC (Bld) [Ratio] 0 % 0-5 [facility] MCHC Auto (RBC) [Mass/Vol]Or dered By: Dr. Matute on 01-31-2023 MCHC (RBC) [Mass/Vol] 32.1 g/dL 32-36 [facility] No Panel InformationOrdered By: Dr. Matute on 01-31-2023 Estimated GFR (MDRD) Amer 104 mL/min >60 [facility] Comment on above: GFR Calc Estimated GFR (MDRD) Non-Af Amer 86 mL/min >60 [facility] Comment on above: Non- GFR Calc Platelets bldOrdered By: Dr. Matute on 01-31-2023 Platelets (Bld) [#/Vol] 248 10*3/uL 150-450 [facility] Serum or plasma albumin lamine urement (mass/volume)Ordered By: Dr. Matute on 01-31-2023 Albumin [Mass/Vol] 3.9 g/dL 3.2-5.0 [facility] Serum or plasma albumin/glob ulin mass ratioOrdered By: Dr. Matute on 01-31-2023 Albumin/Globulin [Mass ratio] 1.3 {ratio} 0.9-2.4 [facility] Serum or plasma calcium lamine urement (mass/volume)Ordered By: Dr. Matute on 01-31-2023 Calcium [Mass/Vol] 9.4 mg/dL 8.5-10.1 [facility] Serum or plasma creatinine m easurement (mass/volume)Ordered By: Dr. Matute on 01-31-2023 Creatinine [Mass/Vol] 0.72 mg/dL 0.55-1.02 [facility] Comment on above: The validity of the calculated GFR & GFRAA in patients over 70 years has not been determined. Clinical correlation is essential. Serum or plasma urea nitroge n measurement (mass/volume)Ordered By: Dr. Matute on 01-31-2023 Urea nitrogen [Mass/Vol] 10 mg/dL 7-18 [facility] Thin prep Papanicolaou smear with manual screeningOrdered By: Dr. Matute on 01-31-2023 Thin prep Papanicolaou smear with manual screening 20 U/L 15-37 [facility] Thin prep Papanicolaou smear with manual screening 6 5-15 [facility] Basophil percentageOrdered B y: Dr. Tilley on 12-10-2022 Bilirubin [Mass/Vol] 0.30 mg/dL 0.20-1.00 [facility] Comment on above: For patients on eltr ombopag therapy, use of Dimension [place] TBIL is not recommended. Chloride [Moles/Vol] 104 mmol/L 98-107 [facility] Cholesterol [Mass/Vol] 237 mg/dL <200 [facility] Comment on above: <200 mg/dL Desirable 200-240 mg/dL Borderline >240 mg/dL High Risk Glucose [Mass/Vol] 94 mg/dL 74-106 [facility] Potassium [Moles/Vol] 4.0 mmol/L 3.5-5.1 [facility] Protein [Mass/Vol] 6.5 g/dL 6.4-8.2 [facility] Sodium [Moles/Vol] 142 mmol/L 136-145 [facility] Triglyceride [Mass/Vol] 244 mg/dL <199 [facility] Comment on above: The drugs N-Acetylcy steine and Metamizole may falsely depress this assay.Serum Triglycerides Reference Interval Normal <150 mg/dL Borderline high 150 - 199 mg/dL High 200 - 499 mg/dL Very High > or = 500 mg/dL Laboratory - Chemistry and C hemistry - challengeOrdered By: Dr. Tilley on 12-10-2022 ALP [Catalytic activity/Vol] 69 U/L 45-117 [facility] ALT [Catalytic activity/Vol] 19 U/L 13-56 [facility] CO2 [Moles/Vol] 29.0 mmol/L 21.0-32.0 [facility] Globulin (S) [Mass/Vol] 3.1 g/dL 2.2-4.2 [facility] Urea nitrogen/Creatinine [Mass ratio] 21.0 mg/mg 10-20 [facility] No Panel InformationOrdered By: Dr. Tilley on 12-10-2022 Estimated GFR (MDRD) Amer 114 mL/min >60 [facility] Comment on above: GFR Calc Estimated GFR (MDRD) Non-Af Amer 94 mL/min >60 [facility] Comment on above: Non- GFR Calc Thyroid Stimulating Hormone (TSH) 2.42 uIU/mL 0.358-3.74 [facility] Serum or plasma albumin lamine urement (mass/volume)Ordered By: Dr. Tilley on 12-10-2022 Albumin [Mass/Vol] 3.4 g/dL 3.2-5.0 [facility] Serum or plasma albumin/glob ulin mass ratioOrdered By: Dr. Tilley on 12-10-2022 Albumin/Globulin [Mass ratio] 1.1 {ratio} 0.9-2.4 [facility] Serum or plasma calcium lamine urement (mass/volume)Ordered By: Dr. Tilley on 12-10-2022 Calcium [Mass/Vol] 9.3 mg/dL 8.5-10.1 [facility] Serum or plasma cholesterol in HDL measurement (mass/volume)Ordered By: Dr. Tilley on 12-10-2022 Cholesterol in HDL [Mass/Vol] 55 mg/dL >40 [facility] Comment on above: The drugs N-Acetylcy steine and Metamizole may falsely depress this assay. Reference Range HDL <40 mg/dL Low HDL Cholesterol HDL >or= 60 mg/dL High HDL Cholesterol Serum or plasma cholesterol in VLDL measurement (mass/volume)Ordered By: Dr. Tilley on 12-10-2022 Cholesterol in VLDL [Mass/Vol] 49 mg/dL 5-40 [facility] Serum or plasma creatinine m easurement (mass/volume)Ordered By: Dr. Tilley on 12-10-2022 Creatinine [Mass/Vol] 0.67 mg/dL 0.55-1.02 [facility] Comment on above: The validity of the calculated GFR & GFRAA in patients over 70 years has not been determined. Clinical correlation is essential. Serum or plasma low density lipoprotein (LDL) cholesterol measurement (mass/volume)Ordered By: Dr. Tilley on 12-10-2022 Cholesterol in LDL [Mass/Vol] 133 mg/dL 0-130 [facility] Serum or plasma urea nitroge n measurement (mass/volume)Ordered By: Dr. Tilley on 12-10-2022 Urea nitrogen [Mass/Vol] 14 mg/dL 7-18 [facility] Thin prep Papanicolaou smear with manual screeningOrdered By: Dr. Tilley on 12-10-2022 Thin prep Papanicolaou smear with manual screening 17 U/L 15-37 [facility] Thin prep Papanicolaou smear with manual screening 9 5-15 [facility] Absolute lymphocyte countOrd ered By: Dr. Matute on 11-04-2022 Lymphocytes Auto (Unsp spec) [#/Vol] 1.89 10*3/uL 0.83-4.51 [facility] Basophil percentageOrdered B y: Dr. Matute on 11-04-2022 Basophils/100 WBC (Bld) 0.7 % 0-1 [facility] Bilirubin [Mass/Vol] 0.60 mg/dL 0.20-1.00 [facility] Comment on above: For patients on eltr ombopag therapy, use of Dimension [place] TBIL is not recommended. Chloride [Moles/Vol] 108 mmol/L 98-107 [facility] Eosinophils/100 WBC (Bld) 1.3 % 0-5 [facility] Glucose [Mass/Vol] 91 mg/dL 74-106 [facility] Neutrophils (Bld) [#/Vol] 2.9 10*3/uL 2.0-7.7 [facility] Neutrophils/100 WBC (Bld) 55.0 % 47-70 [facility] Potassium [Moles/Vol] 4.2 mmol/L 3.5-5.1 [facility] Protein [Mass/Vol] 6.6 g/dL 6.4-8.2 [facility] Sodium [Moles/Vol] 141 mmol/L 136-145 [facility] WBC (Bld) [#/Vol] 5.4 10*3/uL 4.4-11.0 [facility] Blood erythrocytes count (nu mber/volume)Ordered By: Dr. Matute on 11-04-2022 RBC (Bld) [#/Vol] 4.21 10*6/uL 4.2-5.4 [facility] Blood hemoglobin measurement (mass/volume)Ordered By: Dr. Matute on 11-04-2022 Hemoglobin (Bld) [Mass/Vol] 14.0 g/dL 12.0-15.0 [facility] Blood lymphocytes/100 leukoc ytesOrdered By: Dr. Matute on 11-04-2022 Lymphocytes/100 WBC (Bld) 35.3 % 19-41 [facility] Blood monocytes/100 leukocyt esOrdered By: Dr. Matute on 11-04-2022 Monocytes/100 WBC (Bld) 7.5 % 0-10 [facility] Blood platelet mean volumeOr dered By: Dr. Matute on 11-04-2022 Platelet mean volume (Bld) [Entitic vol] 10.2 fL 6.2-12.0 [facility] Determination of erythrocyte mean corpuscular volume (MCV)Ordered By: Dr. Matute on 11-04-2022 MCV (RBC) [Entitic vol] 102.6 fL 81-99 [facility] Hematocrit Auto (Bld) [Volum e fraction]Ordered By: Dr. Matute on 11-04-2022 Hematocrit (Bld) [Volume fraction] 43.2 % 37-47 [facility] Laboratory - Chemistry and C hemistry - challengeOrdered By: Dr. Matute on 11-04-2022 ALP [Catalytic activity/Vol] 57 U/L 45-117 [facility] ALT [Catalytic activity/Vol] 28 U/L 13-56 [facility] CO2 [Moles/Vol] 27.0 mmol/L 21.0-32.0 [facility] Globulin (S) [Mass/Vol] 2.6 g/dL 2.2-4.2 [facility] Urea nitrogen/Creatinine [Mass ratio] 17.3 mg/mg 10-20 [facility] Laboratory - Hematology and Cell countsOrdered By: Dr. Matute on 11-04-2022 Erythrocyte distribution width (RBC) [Entitic vol] 54.2 fL 35.1-43.9 [facility] Erythrocyte distribution width (RBC) [Ratio] 14.3 % 11.6-14.6 [facility] Immature granulocytes/100 WBC (Bld) 0.200 % 0.0-0.9 [facility] Comment on above: IG% - Immature Granu locytes (promyelocytes, myelocytes and metamyelocytes) > 1% indicates that a LEFT SHIFT is Present. MCH (RBC) [Entitic mass] 33.3 pg 27.0-32.0 [facility] Nucleated RBC/100 W[facility] (Bld) [[facility]] 0 % [facility] [[facility]/Vol]Or dered By: Dr. Matute on 11-04-2022 MCHC (RBC) [Mass/Vol] 32.4 g/dL 32-36 [facility] No Panel InformationOrdered By: Dr. Matute on 11-04-2022 Estimated GFR (MDRD) Amer 109 mL/min >60 [facility] Comment on above: GFR Calc Estimated GFR (MDRD) Non-Af Amer 90 mL/min >60 [facility] Comment on above: Non- GFR Calc Platelets bldOrdered By: Dr. Matute on 11-04-2022 Platelets (Bld) [#/Vol] 283 10*3/uL 150-450 [facility] Serum or plasma albumin lamine urement (mass/volume)Ordered By: Dr. Matute on 11-04-2022 Albumin [Mass/Vol] 4.0 g/dL 3.2-5.0 [facility] Serum or plasma albumin/glob ulin mass ratioOrdered By: Dr. Matute on 11-04-2022 Albumin/Globulin [Mass ratio] 1.5 {ratio} 0.9-2.4 [facility] Serum or plasma calcium lamine urement (mass/volume)Ordered By: Dr. Matute on 11-04-2022 Calcium [Mass/Vol] 9.1 mg/dL 8.5-10.1 [facility] Serum or plasma creatinine m easurement (mass/volume)Ordered By: Dr. Matute on 11-04-2022 Creatinine [Mass/Vol] 0.70 mg/dL 0.55-1.02 [facility] Comment on above: The validity of the calculated GFR & GFRAA in patients over 70 years has not been determined. Clinical correlation is essential. Serum or plasma urea nitroge n measurement (mass/volume)Ordered By: Dr. Matute on 11-04-2022 Urea nitrogen [Mass/Vol] 12 mg/dL 7-18 [facility] Thin prep Papanicolaou smear with manual screeningOrdered By: Dr. Matute on 11-04-2022 Thin prep Papanicolaou smear with manual screening 21 U/L 15-37 [facility] Thin prep Papanicolaou smear with manual screening 6 5-15 [facility] Absolute lymphocyte counton 08-09-2022 Lymphocytes Auto (Unsp spec) [#/Vol] 1.64 10*3/uL 0.83-4.51 [facility] Work Phone: Basophil percentageon 2021 Basophils/100 WBC (Bld) 0.5 % 0-1 [facility] Work Phone: Bilirubin [Mass/Vol] 0.40 mg/dL 0.20-1.00 [facility] Work Phone: Comment on above: For patients on eltr ombopag therapy, use of Dimension [place] TBIL is not recommended. Chloride [Moles/Vol] 107 mmol/L 98-107 [facility] Work Phone: Eosinophils/100 WBC (Bld) 1.2 % 0-5 [facility] Work Phone: Glucose [Mass/Vol] 90 mg/dL 74-106 [facility] Work Phone: Neutrophils (Bld) [#/Vol] 2.1 10*3/uL 2.0-7.7 [facility] Work Phone: Neutrophils/100 WBC (Bld) 50.9 % 47-70 [facility] Work Phone: Potassium [Moles/Vol] 4.0 mmol/L 3.5-5.1 [facility] Work Phone: Protein [Mass/Vol] 6.8 g/dL 6.4-8.2 [facility] Work Phone: Sodium [Moles/Vol] 141 mmol/L 136-145 [facility] Work Phone: WBC (Bld) [#/Vol] 4.1 10*3/uL 4.4-11.0 [facility] Work Phone: Blood erythrocytes count (nu mber/volume)on 08-09-2022 RBC (Bld) [#/Vol] 3.98 10*6/uL 4.2-5.4 [facility]: Blood hemoglobin measurement (mass/volume)on 08-09-2022 Hemoglobin (Bld) [Mass/Vol] 13.1 g/dL 12.0-15.0 [facility] Work Phone: Blood lymphocytes/100 leukoc yteson 08-09-2022 Lymphocytes/100 WBC (Bld) 39.7 % 19-41 [facility] Work Phone: Blood monocytes/100 leukocyt eson 08-09-2022 Monocytes/100 WBC (Bld) 7.5 % 0-10 [facility] Work Phone: Blood platelet mean volumeon 08-09-2022 Platelet mean volume (Bld) [Entitic vol] 10.0 fL 6.2-12.0 [facility] Work Phone: Determination of erythrocyte mean corpuscular volume (MCV)on 08-09-2022 MCV (RBC) [Entitic vol] 99.7 fL 81-99 [facility] Work Phone: Hematocrit Auto (Bld) [Volum e fraction]on 08-09-2022 Hematocrit (Bld) [Volume fraction] 39.7 % 37-47 [facility] Work Phone: Laboratory - Chemistry and C hemistry - challengeon 08-09-2022 ALP [Catalytic activity/Vol] 51 U/L 45-117 [facility] Work Phone: ALT [Catalytic activity/Vol] 24 U/L 13-56 [facility] Work Phone: CO2 [Moles/Vol] 28.0 mmol/L 21.0-32.0 [facility] Work Phone: Globulin (S) [Mass/Vol] 3.0 g/dL 2.2-4.2 [facility] Work Phone: Urea nitrogen/Creatinine [Mass ratio] 23.5 mg/mg 10-20 [facility] Work Phone: Laboratory - Hematology and Cell countson 08-09-2022 Erythrocyte distribution width (RBC) [Entitic vol] 49.0 fL 35.1-43.9 [facility] Work Phone: Erythrocyte distribution width (RBC) [Ratio] 13.3 % 11.6-14.6 [facility] Work Phone: Immature granulocytes/100 WBC (Bld) 0.200 % 0.0-0.9 [facility] Work Phone: Comment on above: IG% - Immature Granu locytes (promyelocytes, myelocytes and metamyelocytes) > 1% indicates that a LEFT SHIFT is Present. MCH (RBC) [Entitic mass] 32.9 pg 27.0-32.0 [facility] Work Phone: Nucleated RBC/100 WBC (Bld) [Ratio] 0 % 0-5 [facility] Work Phone: MCHC Auto (RBC) [Mass/Vol]on 08-09-2022 MCHC (RBC) [Mass/Vol] 33.0 g/dL 32-36 [facility] Work Phone: No Panel Informationon 08-09 Estimated GFR (MDRD) Amer 111 mL/min >60 [facility] Work Phone: Comment on above: GFR Calc Estimated GFR (MDRD) Non-Af Amer 92 mL/min >60 [facility] Work Phone: Comment on above: Non- GFR Calc Platelets bldon 08-09-2022 Platelets (Bld) [#/Vol] 236 10*3/uL 150-450 [facility] Work Phone: Serum or plasma albumin lamine urement (mass/volume)on 08-09-2022 Albumin [Mass/Vol] 3.8 g/dL 3.2-5.0 [facility] Work Phone: Serum or plasma albumin/glob ulin mass ratioon 08-09-2022 Albumin/Globulin [Mass ratio] 1.3 {ratio} 0.9-2.4 [facility] Work Phone: Serum or plasma calcium lamine urement (mass/volume)on 08-09-2022 Calcium [Mass/Vol] 9.5 mg/dL 8.5-10.1 [facility] Work Phone: Serum or plasma creatinine m easurement (mass/volume)on 08-09-2022 Creatinine [Mass/Vol] 0.68 mg/dL 0.55-1.02 [facility] Work Phone: Comment on above: The validity of the calculated GFR & GFRAA in patients over 70 years has not been determined. Clinical correlation is essential. Serum or plasma urea nitroge n measurement (mass/volume)on 08-09-2022 Urea nitrogen [Mass/Vol] 16 mg/dL 7-18 [facility] Work Phone: Thin prep Papanicolaou smear with manual screeningon 08-09-2022 Thin prep Papanicolaou smear with manual screening 20 U/L 15-37 [facility] Work Phone: Thin prep Papanicolaou smear with manual screening 6 5-15 [facility] Work Phone: Absolute lymphocyte counton 05-17-2022 Lymphocytes Auto (Unsp spec) [#/Vol] 1.73 10*3/uL 0.83-4.51 [facility] Work Phone: Basophil percentageon 2021 Basophils/100 WBC (Bld) 0.5 % 0-1 [facility] Work Phone: Bilirubin [Mass/Vol] 0.50 mg/dL 0.20-1.00 [facility] Work Phone: Comment on above: For patients on eltr ombopag therapy, use of Dimension [place] TBIL is not recommended. Chloride [Moles/Vol] 105 mmol/L 98-107 [facility] Work Phone: Eosinophils/100 WBC (Bld) 1.2 % 0-5 [facility] Work Phone: Glucose [Mass/Vol] 104 mg/dL 74-106 [facility] Work Phone: Comment on above: Fasting Glucose resu lt from 100 to 125 mg/dL suggests IMPAIRED HOMEOSTASIS per A.D.A. criteria. Neutrophils (Bld) [#/Vol] 3.9 10*3/uL 2.0-7.7 [facility] Work Phone: [phone] Neutrophils/100 WBC (Bld) 63.3 % 47-70 [facility] Work Phone: Potassium [Moles/Vol] 3.5 mmol/L 3.5-5.1 [facility] Work Phone: Protein [Mass/Vol] 7.4 g/dL 6.4-8.2 [facility] Work Phone: Sodium [Moles/Vol] 139 mmol/L 136-145 [facility] Work Phone: WBC (Bld) [#/Vol] 6.1 10*3/uL 4.4-11.0 [facility] Work Phone: Blood erythrocytes count (nu mber/volume)on 05-17-2022 RBC (Bld) [#/Vol] 4.06 10*6/uL 4.2-5.4 [facility] Work Phone: Blood hemoglobin measurement (mass/volume)on 05-17-2022 Hemoglobin (Bld) [Mass/Vol] 13.0 g/dL 12.0-15.0 [facility] Work Phone: Blood lymphocytes/100 leukoc yteson 05-17-2022 Lymphocytes/100 WBC (Bld) 28.5 % 19-41 [facility] Work Phone: Blood monocytes/100 leukocyt eson 05-17-2022 Monocytes/100 WBC (Bld) 6.3 % 0-10 [facility] Work Phone: Blood platelet mean volumeon 05-17-2022 Platelet mean volume (Bld) [Entitic vol] 9.7 fL 6.2-12.0 [facility] Work Phone: Determination of erythrocyte mean corpuscular volume (MCV)on 05-17-2022 MCV (RBC) [Entitic vol] 98.0 fL 81-99 [facility] Work Phone: Hematocrit Auto (Bld) [Volum e fraction]on 05-17-2022 Hematocrit (Bld) [Volume fraction] 39.8 % 37-47 [facility] Work Phone: Laboratory - Chemistry and C hemistry - challengeon 05-17-2022 ALP [Catalytic activity/Vol] 59 U/L 45-117 [facility] Work Phone: ALT [Catalytic activity/Vol] 27 U/L 13-56 [facility] Work Phone: CO2 [Moles/Vol] 28.0 mmol/L 21.0-32.0 [facility] Work Phone: Globulin (S) [Mass/Vol] 3.2 g/dL 2.2-4.2 [facility] Work Phone: Urea nitrogen/Creatinine [Mass ratio] 13.1 mg/mg 10-20 [facility] Work Phone: Laboratory - Hematology and Cell countson 05-17-2022 Erythrocyte distribution width (RBC) [Entitic vol] 59.9 fL 35.1-43.9 [facility] Work Phone: Erythrocyte distribution width (RBC) [Ratio] 16.8 % 11.6-14.6 [facility] Work Phone: Immature granulocytes/100 WBC (Bld) 0.200 % 0.0-0.9 [facility] Work Phone: Comment on above: IG% - Immature Granu locytes (promyelocytes, myelocytes and metamyelocytes) > 1% indicates that a LEFT SHIFT is Present. MCH (RBC) [Entitic mass] 32.0 pg 27.0-32.0 [facility] Work Phone: Nucleated RBC/100 WBC (Bld) [Ratio] 0 % 0-5 [facility] Work Phone: MCHC Auto (RBC) [Mass/Vol]on 05-17-2022 MCHC (RBC) [Mass/Vol] 32.7 g/dL 32-36 [facility] Work Phone: No Panel Informationon 05-17 Estimated GFR (MDRD) Amer 88 mL/min >60 [facility] Work Phone: Comment on above: GFR Calc Estimated GFR (MDRD) Non-Af Amer 73 mL/min >60 [facility] Work Phone: Comment on above: Non- GFR Calc Platelets bldon 05-17-2022 Platelets (Bld) [#/Vol] 276 10*3/uL 150-450 [facility] Work Phone: Serum or plasma albumin lamine urement (mass/volume)on 05-17-2022 Albumin [Mass/Vol] 4.2 g/dL 3.2-5.0 [facility] Work Phone: Serum or plasma albumin/glob ulin mass ratioon 05-17-2022 Albumin/Globulin [Mass ratio] 1.3 {ratio} 0.9-2.4 [facility] Work Phone: Serum or plasma calcium lamine urement (mass/volume)on 05-17-2022 Calcium [Mass/Vol] 9.1 mg/dL 8.5-10.1 [facility] Work Phone: Serum or plasma creatinine m easurement (mass/volume)on 05-17-2022 Creatinine [Mass/Vol] 0.84 mg/dL 0.55-1.02 [facility] Work Phone: Comment on above: The validity of the calculated GFR & GFRAA in patients over 70 years has not been determined. Clinical correlation is essential. Serum or plasma urea nitroge n measurement (mass/volume)on 05-17-2022 Urea nitrogen [Mass/Vol] 11 mg/dL 7-18 [facility] Work Phone: Thin prep Papanicolaou smear with manual screeningon 05-17-2022 Thin prep Papanicolaou smear with manual screening 22 U/L 15-37 [facility] Work Phone: Thin prep Papanicolaou smear with manual screening 6 5-15 [facility] Work Phone: DEXA BONE DENSITY AXIAL KALEN Villeda 02-17-2022 Patient Name: AUGUSTUS TARIQ Bone Density ACCESSION EXAM DATE/TIME PROCEDURE ORDERING PROVIDER [id number] 02/17/2022 08:19 EDT OT Bone Density DEXA ESTERLE, DO, SURI Axial Skeleton CPT code 23834 Reason For Exam (OT Bone Density DEXA Axial Skeleton) asymptomatic postmenopausal state Report DXA BONE DENSITOMETRY: CLINICAL INDICATION: Asymptomatic post-menopausal status. Screening for osteoporosis. COMPARISON: 07/08/2015 TECHNIQUE: Quantitative bone mineral densitometry of the hip and lumbar spine was performed with a dual energy x-ray observed absorptiometry device - [employer] at some institutions, HOLOG[employer] at others. Regions [...] < -2.5 is low bone density or "osteopenia." T-score of -2.5 or lower is abnormally low, compatible with osteoporosis. T-score of -2.5 or less plus fragility fracture indicates "severe osteoporosis." FINDINGS: Femoral neck RIGHT Density: 0.656 g/cm2 T-score: -1.7 Z-score: -0.3 Total Hip RIGHT Density: 0.761 g/cm2 T-score: -1.5 Z-score: -0.3 Comparison from prior examination: The bone demineralization has progressed significantly when compared to the baseline study of 2015. Spine: L1-L4 Density 0.896 g/cm2 T-score: -1.4 Z-score: 0.3 Comparison from prior examination: The bone demineralization has progressed Bone Density Report significantly when compared to the baseline study of 2015. IMPRESSION: 1. Osteopenia. 2. The bone demineralization has progressed significantly when compared to the baseline study of 2014. FRACTURE RISK: The estimated 10 year risk for a hip fracture is 2.6% and for a major osteoporosis-related fracture is 19%. (FRAX web version 3.11). RECOMMENDATIONS: General recommendations for prevention of bone loss include: 2178-4143 mg calcium intake per day for adults [...] Breonna of Knowledge Evidence - based Summaries. [facility] Client Outlook for Education and Research 2017. (more content not included)... Minesh Motley MD - 02/17/2022 Patient Name: AUGUSTUS TARIQ Bone Density ACCESSION EXAM DATE/TIME PROCEDURE ORDERING PROVIDER [id number] 02/17/2022 08:19 EDT OT Bone Density DEXA ESTERLE, DO, SURI Axial Skeleton CPT code 43518 Reason For Exam (OT Bone Density DEXA Axial Skeleton) asymptomatic postmenopausal state Report DXA BONE DENSITOMETRY: CLINICAL INDICATION: Asymptomatic post-menopausal status. Screening for osteoporosis. COMPARISON: 07/08/2015 TECHNIQUE: Quantitative bone mineral densitometry of the hip and lumbar spine was performed with a dual energy x-ray observed absorptiometry device - [employer] at some institutions, HOLOG[employer] at others. Regions [...] < -2.5 is low bone density or "osteopenia." T-score of -2.5 or lower is abnormally low, compatible with osteoporosis. T-score of -2.5 or less plus fragility fracture indicates "severe osteoporosis." FINDINGS: Femoral neck RIGHT Density: 0.656 g/cm2 [...] recommendations for prevention of bone loss include: 2428-8075 mg calcium intake per day for adults [...] Breonna of Knowledge Evidence - based Summaries. [facility] IQcard Education and Research 2017. Bone Density Report Report Dictated on Workstation: [id number] --- Final --- Dictating Physic (more content not included)... [employer] Work Phone: DEXA BONE DENSITY AXIAL SKEL ETONOrdered By: Minesh Clement on 02-17-2022 [employer] Work Phone: MG Breast Tomosynthesis Scr Blon 02-17-2022 MG Breast Tomosynthesis Scr Bl Patient Name: AUGUSTUS TARIQ Mammography ACCESSION EXAM DATE/TIME PROCEDURE ORDERING PROVIDER [id number] 02/17/2022 08:00 EDT MG Breast Tomosynthesis DO CASTILLO LISA BI Scr CPT code 22730 41907 Reason For Exam (MG Breast Tomosynthesis BI [...] MG breast tomosynthesis bl scr performed at [facility] at [facility]. September 18, 2019, bilateral MG breast tomosynthesis bl scr performed at [facility]. July 08, 2015, bilateral screening mammogram performed at [facility]. TISSUE DENSITY: BIRADS B - There are [...] images: BB's = Nipples; skin lesions Open [place] = Palpable Line = Scar 2D digital [...] in high risk clinic. A score of "Average Risk" indicates a score of less than 20%. [...] am Signed by: MD PEDRO, CEDRIC Betts [facility] Kurt Digital Screen Rickey tidwell 02-17-2022 Patient Name: AUGUSTUS TARIQ Mammography ACCESSION EXAM DATE/TIME PROCEDURE ORDERING PROVIDER [id number] 02/17/2022 08:00 EDT MG Breast Tomosynthesis DO CASTILLO LISA BI Scr CPT code 61330 20552 Reason For Exam (MG Breast Tomosynthesis BI [...] MG breast tomosynthesis bl scr performed at [facility]. September 18, 2019, bilateral MG breast tomosynthesis bl scr performed at [facility]. July 08, 2015, bilateral screening mammogram performed at [facility] at [facility]. TISSUE DENSITY: BIRADS B - There [...] images: BB's = Nipples; skin lesions Open [place] = Palpable Line = Scar 2D digital [...] in high risk clinic. A score of "Average Risk" indicates a score of less than 20%. [...] am Signed by: MD PEDRO, CEDRIC Betts [facility] Cedric Rosas MD - 02/17/2022 Patient Name: AUGUSTUS TARIQ Mammography ACCESSION EXAM DATE/TIME PROCEDURE ORDERING PROVIDER [id number] 02/17/2022 08:00 EDT MG Breast Tomosynthesis DO CASTILLO LISA BI Scr CPT code 63176 [id number] Reason For Exam (MG Breast Tomosynthesis BI [...] MG breast tomosynthesis bl scr performed at [facility]. September 18, 2019, bilateral MG breast tomosynthesis bl scr performed at [facility]. July 08, 2015, bilateral screening mammogram performed at [facility] at [facility]. TISSUE DENSITY: BIRADS B - There [...] images: BB's = Nipples; skin lesions Open [place] = Palpable Line = Scar 2D digital [...] in high risk clinic. A score of "Average Risk" indicates a score of less than 20%. [...] am Signed by: MD PEDRO, CEDRIC Betts [facility] Work Phone: Vicenta Kurt Digital Screen Bila teralOrdered By: Cedric Rosas on 02-17-2022 [facility] Work Phone: No Panel Informationon 02-17 [facility] (narrative) [facility] Work Phone: OT Bone Density DEXA Axial S nell 02-17-2022 OT Bone Density DEXA Axial Skeleton Patient Name: AUGUSTUS TARIQ Bone Density ACCESSION EXAM DATE/TIME PROCEDURE ORDERING PROVIDER [id number] 02/17/2022 08:19 EDT OT Bone Density DEXA ESTERLE, DO SURI Axial Skeleton CPT code 93824 Reason For Exam (OT Bone Density DEXA Axial Skeleton) asymptomatic postmenopausal state Report DXA BONE DENSITOMETRY: CLINICAL INDICATION: Asymptomatic post-menopausal status. Screening for osteoporosis. COMPARISON: 07/08/2015 TECHNIQUE: Quantitative bone mineral densitometry of the hip and lumbar spine was performed with a dual energy x-ray observed absorptiometry device - [employer] at some institutions, HOLOGIC at others. Regions [...] < -2.5 is low bone density or "osteopenia." T-score of -2.5 or lower is abnormally low, compatible with osteoporosis. T-score of -2.5 or less plus fragility fracture indicates "severe osteoporosis." FINDINGS: Femoral neck RIGHT Density: 0.656 g/cm2 [...] recommendations for prevention of bone loss include: 0306-8097 mg calcium intake per day for adults [...] Breonna of Knowledge Evidence - based Summaries. [facility] Client Outlook for Education and Research 2017. Bone Density Report Report Dictated on Workstation: [id number] Final Dictating Physician: MD CLEMENT JEFFREY Signed Date and Time: 02/17/2022 4:49 pm Signed by: MD CLEMENT JEFFREY Transcribed Date and Time: 02/17/2022 4:50 Normal [facility] Absolute lymphocyte counton 02-15-2022 Lymphocytes Auto (Unsp spec) [#/Vol] 2.09 10*3/uL 0.83-4.51 [facility] Work Phone: Basophil percentageon 2021 Basophils/100 WBC (Bld) 0.8 % 0-1 [facility] Work Phone: Bilirubin [Mass/Vol] 0.40 mg/dL 0.20-1.00 [facility] Work Phone: Comment on above: For patients on eltr ombopag therapy, use of Dimension [place] TBIL is not recommended. Chloride [Moles/Vol] 108 mmol/L 98-107 [facility] Work Phone: Eosinophils/100 WBC (Bld) 4.1 % 0-5 [facility] Work Phone: [phone] Glucose [Mass/Vol] 89 mg/dL 74-106 [facility] Work Phone: [phone] Neutrophils (Bld) [#/Vol] 2.0 10*3/uL 2.0-7.7 [facility] Work Phone: Neutrophils/100 WBC (Bld) 41.9 % 47-70 [facility] Work Phone: [phone] Potassium [Moles/Vol] 3.8 mmol/L 3.5-5.1 [facility] Work Phone: [phone] Protein [Mass/Vol] 7.2 g/dL 6.4-8.2 [facility] Work Phone: [phone] Sodium [Moles/Vol] 141 mmol/L 136-145 [facility] Work Phone: [phone] WBC (Bld) [#/Vol] 4.8 10*3/uL 4.4-11.0 [facility] Work Phone: [phone] Blood erythrocytes count (nu mber/volume)on 02-15-2022 RBC (Bld) [#/Vol] 4.49 10*6/uL 4.2-5.4 [facility] Work Phone: [phone] Blood hemoglobin measurement (mass/volume)on 02-15-2022 Hemoglobin (Bld) [Mass/Vol] 13.7 g/dL 12.0-15.0 [facility] Work Phone: Blood lymphocytes/100 leukoc yteson 02-15-2022 Lymphocytes/100 WBC (Bld) 43.3 % 19-41 [facility] Work Phone: Blood monocytes/100 leukocyt eson 02-15-2022 Monocytes/100 WBC (Bld) 9.7 % 0-10 [facility] Work Phone: Blood platelet mean volumeon 02-15-2022 Platelet mean volume (Bld) [Entitic vol] 10.7 fL 6.2-12.0 [facility] Work Phone: Determination of erythrocyte mean corpuscular volume (MCV)on 02-15-2022 MCV (RBC) [Entitic vol] 93.3 fL 81-99 [facility] Work Phone: Hematocrit Auto (Bld) [Volum e fraction]on 02-15-2022 Hematocrit (Bld) [Volume fraction] 41.9 % 37-47 [facility] Work Phone: Laboratory - Chemistry and C hemistry - challengeon 02-15-2022 ALP [Catalytic activity/Vol] 58 U/L 45-117 [facility] Work Phone: ALT [Catalytic activity/Vol] 21 U/L 13-56 [facility] Work Phone: CO2 [Moles/Vol] 27.0 mmol/L 21.0-32.0 [facility] Work Phone: Globulin (S) [Mass/Vol] 3.2 g/dL 2.2-4.2 [facility] Work Phone: Urea nitrogen/Creatinine [Mass ratio] 10.5 mg/mg 10-20 [facility] Work Phone: Laboratory - Hematology and Cell countson 02-15-2022 Erythrocyte distribution width (RBC) [Entitic vol] 44.8 fL 35.1-43.9 [facility] Work Phone: Erythrocyte distribution width (RBC) [Ratio] 13.2 % 11.6-14.6 [facility] Work Phone: Immature granulocytes/100 WBC (Bld) 0.200 % 0.0-0.9 [facility] Work Phone: Comment on above: IG% - Immature Granu locytes (promyelocytes, myelocytes and metamyelocytes) > 1% indicates that a LEFT SHIFT is Present. MCH (RBC) [Entitic mass] 30.5 pg 27.0-32.0 [facility] Work Phone: Nucleated RBC/100 WBC (Bld) [Ratio] 0 % 0-5 [facility] Work Phone: MCHC Auto (RBC) [Mass/Vol]on 02-15-2022 MCHC (RBC) [Mass/Vol] 32.7 g/dL 32-36 [facility] Work Phone: No Panel Informationon 02-15 Estimated GFR (MDRD) Amer 86 mL/min >60 [facility] Work Phone: Comment on above: GFR Calc Estimated GFR (MDRD) Non-Af Amer 71 mL/min >60 [facility] Work Phone: Comment on above: Non- GFR Calc Platelets bldon 02-15-2022 Platelets (Bld) [#/Vol] 264 10*3/uL 150-450 [facility] Work Phone: Serum or plasma albumin lamine urement (mass/volume)on 02-15-2022 Albumin [Mass/Vol] 4.0 g/dL 3.2-5.0 [facility] Work Phone: Serum or plasma albumin/glob ulin mass ratioon 02-15-2022 Albumin/Globulin [Mass ratio] 1.2 {ratio} 0.9-2.4 [facility] Work Phone: Serum or plasma calcium lamine urement (mass/volume)on 02-15-2022 Calcium [Mass/Vol] 9.0 mg/dL 8.5-10.1 [facility] Work Phone: Serum or plasma creatinine m easurement (mass/volume)on 02-15-2022 Creatinine [Mass/Vol] 0.86 mg/dL 0.55-1.02 [facility] Work Phone: Comment on above: The validity of the calculated GFR & GFRAA in patients over 70 years has not been determined. Clinical correlation is essential. Serum or plasma urea nitroge n measurement (mass/volume)on 02-15-2022 Urea nitrogen [Mass/Vol] 9 mg/dL 7-18 [facility] Work Phone: Thin prep Papanicolaou smear with manual screeningon 02-15-2022 Thin prep Papanicolaou smear with manual screening 23 U/L 15-37 [facility] Work Phone: Thin prep Papanicolaou smear with manual screening 6 5-15 [facility] Work Phone: [facility] DIGITAL SCREEN BILIris HOLDENGlenn 01-30-2021 Patient Name: AUGUSTUS TARIQ Mammography ACCESSION EXAM DATE/TIME PROCEDURE ORDERING PROVIDER [id number] 01/30/2021 10:52 EST MG Breast Tomosynthesis DO CASTILLO LISA BI Scr CPT code 54612 78431 Reason For Exam (MG Breast Tomosynthesis BI [...] MG breast tomosynthesis bl scr performed at [facility]. July 08, 2015, bilateral screening mammogram performed at [facility]. April 02, 2011, bilateral mammogram. TISSUE DENSITY: BIRADS B - There are scattered fibroglandular densities. . FINDINGS: No suspicious masses, architectural distortions or suspiciously clustered microcalcifications are identified. There is no evidence of skin thickening or nipple retraction. There are no significant changes when compared with prior studies. No mammographic evidence of malignancy. Markings on images: BB's = Nipples; skin lesions Open [place] = Palpable Line = Scar 2D digital mammography and tomosynthesis imaging were performed and reviewed with CAD. ASSESSMENT: Category 1 Negative RECOMMENDATION: Routine screening mammogram of both breasts in 1 year. . Mammography Report Report Dictated on --- Final --- Signed Date and Time: 01/30/2021 3:40 pm Signed by: MD COURTNEY, MARI KIMBLE Work Phone: [place], [place] Incoming Radiology Results From [facility] - 01/30/2021 3:50 PM EST Patient Name: AUGUSTUS TARIQ Mammography ACCESSION EXAM DATE/TIME PROCEDURE ORDERING PROVIDER [id number] 01/30/2021 10:52 EST MG Breast Tomosynthesis DO CASTILLO LISA BI Scr CPT code 35011 94823 Reason For Exam (MG Breast Tomosynthesis BI [...] MG breast tomosynthesis bl scr performed at [facility]. July 08, 2015, bilateral screening mammogram performed at [facility]. April 02, 2011, bilateral mammogram. TISSUE DENSITY: BIRADS B - There are scattered fibroglandular densities. . FINDINGS: No suspicious masses, architectural distortions or suspiciously clustered microcalcifications are identified. There is no evidence of skin thickening or nipple retraction. There are no significant changes when compared with prior studies. No mammographic evidence of malignancy. Markings on images: BB's = Nipples; skin lesions Open [place] = Palpable Line = Scar 2D digital mammography and tomosynthesis imaging were performed and reviewed with CAD. ASSESSMENT: Category 1 Negative RECOMMENDATION: Routine screening mammogram of both breasts in 1 year. . Mammography Report Report Dictated on --- Final --- Signed Date and Time: 01/30/2021 3:40 pm Signed by: MD COURTNEY, MARI KIMBLE Work Phone: [place] HEPATOBILIARY SCAN W EJEC TION FRACTION W/ CCKon 08-28-2020 Patient Name: AUGUSTUS TARIQ ---Nuc Med--- Exam Date/Time 08/28/2020 12:31:08 EDT Exam NM Hepatobiliary Duct System Imaging Ordering Physician DO CASTILLO LISA Accession Number [id number] CPT4 Codes 91183 () Reason For Exam Epigastric pain Report [...] on --- Final --- Dictating Physician: MD BOEN JONATHAN R Signed Date and Time: 08/28/2020 1:37 pm Signed by: MD OBNE JONATHAN R Transcribed Date and Time: 08/28/2020 1:38 [facility], [place], [place] Incoming Radiology Results From [facility] - 08/28/2020 1:38 PM EDT Patient Name: AUGUSTUS TARIQ ---Nuc Med--- Exam Date/Time 08/28/2020 12:31:08 EDT Exam NM Hepatobiliary Duct System Imaging Ordering Physician DO CASTILLO LISA Accession Number [id number] CPT4 Codes 24873 () Reason For Exam Epigastric pain Report [...] R Transcribed Date and Time: 08/28/2020 1:38 [place], [place] US ABDOMEN LIMITEDon 020 Patient Name: AUGUSTUS TARIQ ---Ultrasound--- Exam Date/Time 08/07/2020 08:20:00 EDT Exam US Abdomen Limited Ordering Physician DO CASTILLO LISA Accession Number [id number] CPT4 Codes 99164 () Reason For Exam epigastric pain Report [...] AHMAD Transcribed Date and Time: 08/07/2020 8:40 [place] [facility] 08/07/2020 8:40 AM EDT Patient Name: AUGUSTUS TARIQ ---Ultrasound--- Exam Date/Time 08/07/2020 08:20:00 EDT Exam US Abdomen Limited Ordering Physician DO CASTILLO LISA Accession Number [id number] CPT4 Codes 71567 () Reason For Exam epigastric pain Report [...] AHMAD Transcribed Date and Time: 08/07/2020 8:40 [place], [place] Vital Signs Date Time Vital Sign Value Performing Clinician Zaida madrid 08-28-2020 10:52-0400 BMI (Body Mass Index) 26.47 kg/m2 Suri Castillo [place], [place] 08-28-2020 10:52-0400 Body weight 74.39 kg [place] 08-28-2020 10:52-0400 Height 167.6 cm [place] Encounters Encounter Date Encounter Type Care Provider Facility Start: 09-21-2025 ambulatory Gaetano Tilley Facilit y:[facility] Start: 09-04-2025 ambulatory Gaetano Tilley Facilit y:[facility] Start: 08-13-2025 End: 08-13-[address] Gaeatno Tilley MD Work Phone: -[facility] Start: 08-13-2025 End: 08-13-[address] Sara Matute MD -[facility] Work Phone: Start: 08-13-2025 End: 08-13-2025 ambulatory Gaetano Tilley Facility:[facility] Start: 07-29-2025 ambulatory Elias Reich Facility:[facility] Start: 07-29-2025 Non-patient / Non-visit [facility]. Cyril [facility] Start: 07-24-2025 End: 07-24-[address] Gaetano Tilley MD Work Phone: -[facility] Start: 07-24-2025 End: 07-24-[address] Gaetano Tilley MD -[facility] Work Phone: Start: 07-23-2025 End: 07-24-[address] Gaetano Tilley MD Work Phone: -[facility] Start: 07-23-2025 End: 07-23-[address] Gaetano Tilley MD -[facility] Start: 07-23-2025 End: 07-23-2025 ambulatory Gaetano Tilley Facility:[facility] Start: 06-03-2025 End: 06-03-[address] Gaetano Tilley MD Work Phone: -[facility] Start: 06-03-2025 End: 06-03-2025 [facility] encounter [facility] Work [facility]: Start: 06-03-2025 End: 06-03-2025 ambulatory Gaetano Tilley Facility:[facility] Start: 05-24-2025 End: 05-24-[address] Gaetano Tilley MD Work Phone: -[facility] [place] Start: 05-24-2025 End: 05-24-[address] Sara Matute MD -[facility] [place] Work Phone: Start: 05-24-2025 End: 05-24-2025 ambulatory Gaetano Tilley Facility:[facility] Start: 02-26-2025 End: 02-26-[address] Gaetano Tilley MD Work Phone: [facility] Work Phone: Start: 02-26-2025 End: 02-26-[address] [facility] Start: 02-26-2025 End: 02-26-2025 ambulatory Gaetano Tilley Facility:[facility] Start: 01-30-2025 End: 01-30-[address] Gaetano Tilley MD Work Phone: [facility] Work Phone: Start: 01-30-2025 End: 01-30-[address] [facility] Start: 01-30-2025 End: 01-30-2025 ambulatory Gaetano Tilley Facility:[facility] Start: 01-22-2025 End: 01-22-[address] Gaetano Tilley MD Work Phone: [facility] Work Phone: Start: 01-22-2025 End: 01-22-[address] [facility] Start: 01-22-2025 End: 01-22-2025 ambulatory [facility] Facility:[facility] Start: 12-27-2024 End: 12-27-[address] [facility] Start: 12-27-2024 End: 12-27-2024 ambulatory [facility] Facility:[facility] Start: 10-08-2024 End: 10-08-[address] Sara Matute MD -Laboratory, [place] Work Phone: Start: 10-08-2024 End: 10-08-2024 [facility] Start: 03-15-2024 End: 03-15-2024 ambulatory [facility] Work Phone: Start: 03-15-2024 End: 03-15-2024 Patient encounter procedure [facility] Work Phone: Start: 03-08-2024 End: 03-08-2024 ambulatory [facility] Work Phone: Start: 03-08-2024 End: 03-08-2024 Patient encounter procedure [facility] Start: 02-24-2024 End: 02-24-2024 ambulatory [facility] Work Phone: Start: 02-24-2024 End: 02-24-2024 Patient encounter procedure [facility] Work Phone: Start: 01-26-2024 End: 01-26-2024 ambulatory [facility] Work Phone: Start: 01-26-2024 End: 01-26-2024 Patient encounter procedure [facility] Work Phone: Start: 12-13-2023 End: 12-13-2023 ambulatory [facility] Work Phone: Start: 12-13-2023 End: 12-13-2023 Patient encounter procedure [facility] Start: 11-25-2023 End: 11-25-2023 Patient encounter procedure [facility] Work Phone: Start: 08-24-2023 End: 08-24-2023 ambulatory [facility] Work Phone: Start: 08-24-2023 End: 08-24-2023 Patient encounter procedure [facility] Work Phone: Start: 06-20-2023 End: 06-20-2023 ambulatory [facility] Work Phone: Start: 06-20-2023 End: 06-20-2023 Patient encounter procedure [facility]-Outpatient [facility] Imaging Work Phone: Start: 06-16-2023 End: 06-16-2023 ambulatory [facility] Work Phone: Start: 06-16-2023 End: 06-16-2023 Discharged Recurring [facility]-Physical Therapy Work Phone: Start: 06-16-2023 Registered Recurring [facility] Work Phone: Start: 04-27-2023 End: 04-27-2023 Patient encounter procedure [facility] Start: 04-22-2023 End: 04-22-2023 ambulatory [facility] Work Phone: Start: 04-22-2023 End: 04-22-2023 Patient encounter procedure [facility] Start: 04-15-2023 End: 04-15-2023 ambulatory [facility] Work Phone: Start: 04-15-2023 End: 04-15-2023 Patient encounter procedure [facility] Start: 01-31-2023 End: 01-31-2023 ambulatory [facility] Work Phone: Start: 01-31-2023 End: 03-06-2023 Patient encounter procedure [facility] Start: 12-10-2022 End: 12-10-2022 ambulatory [facility] Work Phone: Start: 12-10-2022 End: 12-10-2022 Patient encounter procedure [facility] Start: 11-04-2022 End: 11-04-2022 ambulatory [facility] Work Phone: Start: 11-04-2022 End: 11-04-2022 Patient encounter procedure [facility] Start: 08-09-2022 End: 08-09-2022 Patient encounter procedure [facility] Start: 05-17-2022 End: 05-17-2022 Patient encounter procedure [facility] Start: 02-17-2022 End: 02-17-2022 Subsequent hospital visit by physician Suri Castillo DO Work Phone: [facility] Comment on above: Arrived Start: 02-15-2022 End: 02-15-2022 Patient encounter procedure [facility] Start: 01-30-2021 End: 01-30-2021 Subsequent hospital visit by physician Suri Castillo Work Phone: [facility] Comment on above: Arrived Start: 08-28-2020 End: 08-28-2020 Subsequent hospital visit by physician Suri Castillo Work Phone: [facility] Comment on above: Arrived Start: 08-07-2020 End: 08-07-2020 Subsequent hospital visit by physician Suri Castillo Work Phone: [facility] Comment on above: Arrived Start: 09-18-2019 End: 09-18-2019 Subsequent hospital visit by physician Suri Castillo Work Phone: [facility] Comment on above: Arrived Procedures Date Procedure Procedure Detail Performing Clinician Start: 07-24-2025 Cardiovascular stres s test using pharmacologic stress agent Dr. Gaetano Tilley MD Work Phone: Start: 07-23-2025 X-ray of chest, PA a nd lateral views Dr. Gaetano Tilley MD Work Phone: Start: 07-23-2025 Urnls dip stick/tabl et reagent auto microscopy Dr. Gaetano Tilley MD Work Phone: Start: 07-23-2025 Vitamin D, 25-hydrox y measurement Dr. Gaetano Tilley MD Work Phone: Comment on above: Vitamin D StatusDefi ciency: <20 ng/mL (50nmol/L)Insufficiency: 20-30 ng/mL (50-75 nmol/L)Sufficiency: 30-100 ng/mL (75-250 nmol/L)Toxicity: >100 ng/mL (>250 nmol/L) Start: 06-03-2025 X-ray of lumbosacral spine Dr. [...] ant neoplasm of breast [facility] [place] Start: 07-29-2021 Influenza vaccination Flu vaccine (# 1) [facility] Start: 07-29-2020 Influenza vaccination Flu vaccine (# 1) [place] Start: 07-29-2019 Influenza vaccination Flu vaccine (# 1) [place] Start: 07-08-2017 Breast cancer screen Breast cancer s creen [place], [place] Start: 2007 Colon cancer screen colonoscopy Colon cancer screen colonoscopy [place], [place] Start: 2007 Screening for malign ant neoplasm of colon Colon cancer screen colonoscopy [place], [place] Start: 2007 Shingles Vaccine (1 of 2) Pulliam gles Vaccine (1 of 2) [facility] Start: 2002 Screening for malign ant neoplasm of colon [facility] Start: 1997 Diabetes screen Diabetes screen [place], [place] Start: 1997 Lipid panel Lipid screen [facility] Start: 1997 Lipid screen Lipid screen [place], [place] Start: 1987 Screening for malign ant neoplasm of cervix [facility] Start: 1978 Cervical cancer screen Cervical canc er screen [place], [place] Start: 1978 Screening for malign ant neoplasm of cervix [facility] Start: 1976 DTaP/Tdap/Td vaccine (1 - Tdap) DTaP/Tdap/Td vaccine (1 - Tdap) [facility] Start: 1973 COVID-19 Vaccine (1 of 2) COVI D-19 Vaccine (1 of 2) [facility] Work Phone: Start: 1972 HIV screen HIV screen [place], [place] Start: 1972 HIV screening HIV screen [facility] Start: 1969 Depression Screen Depression Screen [facility] Start: 1962 COVID-19 Vaccine (1) COVID-19 Vaccin e (1) [facility] Start: 1957 Hepatitis C screen Hepatitis C scree n [place], [place] Start: 1957 Hepatitis C screening Hepatitis C sc reen [facility] End: 09-18-2019 Screening digital breast tomosynthesis bi [facility] Kurt Digital Screen Bilateral Imaging Routine Once for 1 Occurrences starting 09/18/2019 until [facility]18[facility] on above: Once for 1 Occurrenc es starting 09/18/2019 until 09/18/2019 Screening digital br east tomosynthesis bi [facility] Kurt Digital Screen Bilateral Imaging Routine 09/18/2019 11:41 AM EDT [facility] Payers Date Payer Category Payer Medicare [id number] 2024 Self-pay [id number] 2024 Unknown [id number] 2016 Unknown [id number] Medicare [id number] Private Health Insurance [id number] Unknown [id number] 2.16.8 [id number] Unknown [id number] 2.16.8 [id number] Unknown [id number] 2.16.8 [id number] Unknown [id number] 2.16.8 [id number] Unknown [id number] 2.16.8 [id number] Unknown [id number] 2.16.8 [id number] Unknown [id number] 2.16.8 [id number] Unknown [id number] 2.16.8 [id number] Unknown [id number] 2.16.8 [id number] Unknown [id number] 2.16.8 [id number] Unknown [id number] 2.16.8 [id number] Unknown [id number] 2.16.8 [id number] Unknown [id number] 2.16.8 [id number] Social History Date Type Detail Facility Tobacco smoking status NHIS Unknown if ever smoked [place], [place] Start: 1955 Sex Assigned At Not on file [place] Start: 11-09-2021 End: 11-09-2021 Tobacco smoking status NHIS Tobacco smoking consumption unknown [facility] Start: 10-15-2020 None [facility] Start: 1955 Sex Assigned At Female [facility] Start: 11-09-2021 Tobacco smoking status NHIS Never smoked tobacco (finding) [facility] Start: 02-05-2025 End: 03-02-2025 Sex Female (finding) [facility] Sex Female [facility] Radiology Diagnostic study note 07-23-2025 Note Date & Type Note Facility 07-23-2025 Radiology Diagnostic study note [facility] Imaging Services [address] [place], [place] [id number] Chest PA and Lateral MR#: [id number] Acct: [id number] Name: AUGUSTUS TARIQ Rep #: [id number] : 1955 F 69 From: Mann Vaughn MD PCP: Dr. Gaetano Tilley MD Status: RE G CLI Study:Chest PA and Lateral Date of Exam: 07/23/25 Exam# [id number] Ordering Dr: Gaetano Tilley MD PROCEDURE: CHEST PA AND LATERAL 07/23/2025 REASON FOR EXAM: CHEST PAIN TECHNIQUE: CHEST PA AND LATERAL COMPARISON: AP chest of 11/17/2021. RAD/Chest PA and Lateral IMPRESSION: Lungs appear clear of acute disease. No pleural effusion or pneumothorax is noted. The cardiomediastinal silhouette is stable, with a somewhat tortuous aorta noted. No evidence of cardiomegaly. Mild degenerative changes of the visualized spine and at least mild degenerativechanges of the acromioclavicular joints are seen. No acute osseous change is noted. Reading Location: [place] [address] CC: Dr. Gaetano Tilley MD ~ Global Account Manager: Signed [facility] Radiology Diagnostic study note 06-03-2025 Note Date & Type Note Facility 06-03-2025 Radiology Diagnostic study note [facility] Imaging Services [address] [place], [place] [id number] L/S Spine Min 4 Views MR#: [id number] Acct: [id number] Name: AUGUSTUS TARIQ Rep #: [id number] : 1955 From: Liban Paul DO PCP: Dr. Gaetano Tilley MD Status: RE G CLI Study:L/S Spine Min 4 Views Date of Exam: 06/03/25 Exam# [id number] Ordering Dr: Mercdees Crow PROCEDURE: L/S SPINE MIN 4 VIEWS [...] of the L5 vertebral body. Reading Location: [id number] CC: Mercedes Crow; Dr. Gaetano Tilley MD ~ Global Account Manager: Signed [facility] Evaluation note Note Date & Type Note Facility Evaluation note No assessment information availa ble [facility] Work Phone: Reason for referral (narrative) Note Date & Type Note Facility Reason for referral (narrative) No reason for referral information available [facility] Work Phone: Advance Directives No Advanced Directives Records FoundDocuments on File Type Date Recorded Patient Actimize Architect Expl anation ACP-Advance Directive ACP-Power of Instrument Repair Specialist Documents on File Type Date Recorded Patient Actimize Architect Expl anation Advance Directives and Living Will Power of Instrument Repair Specialist Advance Directive Response Recorded Date/ Time Living Will No November 09 021 2:05am Power of Instrument Repair Specialist No November 09, 2021 2:05am Advance Directive Response Recorded Date/ Time Living Will No November 09 021 1:05am Power of Instrument Repair Specialist No November 09, 2021 1:05am Summary Purpose [...] PAIN/ DDD June 03, 2025 8: 49am Chief Complaint Admit Date S/O- PAIN- COPY PCP May 24, 2025 11:2 3am LUMBAR SPINE PAIN/ DDD June 03, 2025 8: 49am Abnormal electrocardiogram [ECG] [EKG] A [facility] 2024 7:02am Abnormal electrocardiogram [facility]] [facility] 2:28pm Chief Complaint Admit Date S/O- PAIN- COPY PCP May 24, 2025 11:2 3am LUMBAR SPINE PAIN/ DDD June 03, 2025 8: 49am Abnormal electrocardiogram [ECG] [EKG] A [facility] 2024 7:02am Abnormal electrocardiogram [ECG] [EKG] [facility] 2024 2:28pm S/O- PAIN- COPY PCP August 13, 2025 12:33pm Additional Source Comments Care Teams (unrecognized sec tion and content) Mirror Machine Feeder Relationship Specialty Start Date End Date Suri Castillo, DO [address] [place], [place] [id number] PCP - General 09/14/19 Team Status: Active [...] Gaetano Tilley MD Primary Care Provider Active BLAYNE LevineC Attending Provider, Referring Pr ovider Active Team Status: Inactive Member Role Status Dates Dr. Gaetano Tilley MD Primary Care Provider Active ADRIANNA Levine-C Attending Provider, Referring Pr ovider Active Team Status: Inactive Member Role Status Dates Dr. Gaetano Tilley MD Primary Care Provider Active Dr. Minesh Peter MD Attending Provider, Referring Provider Active Team Status: Inactive Member Role Status Dates Dr. Gaetano Tilley MD Primary Care Provider Active NP. Mercedes Crow Attending Provider, Referring Provid er [...] June 03, 2025 End: June 03, 2025 NP. Mercedes Crow Attending Provider Active Star t: June 03, 2025 End: June 03, 2025 NP. Mercedes Crow Referring Provider Active Star t: June 03, 2025 End: June 03, 2025 Team Status: Inactive Member Role/Relationship Status [...] June 03, 2025 End: June 03, 2025 [employer]. Mercedes Crow Attending Provider Active Star t: June 03, 2025 End: June 03, 2025 [employer]. Mercedes Crow Referring Provider Active Star t: June 03, 2025 End: June 03, 2025 Team Status: Active Member Role/Relationship Status Dates Dr. Gaetano Tilley MD Primary Care Provider Active Start: July 23, 2025 Dr. Gaetano Tilley MD Attending Provider Active Start: July 23, 2025 Dr. Gaetano Tilley MD Referring Provider Active Start: July 23, 2025 Team Status: Inactive Member Role/Relationship Status Dates Dr. Gaetano Tilley MD Primary Care Provider Active Start: July 24, 2025 End: July 24, 2025 Dr. Gaetano Tilley MD Attending Provider Active Start: July 24, 2025 End: July 24, 2025 Dr. Gaetano Tilley MD Referring Provider Active Start: July 24, 2025 End: July 24, 2025 Team Status: Active Member Role/Relationship Status Dates Dr. Gaetano Tilley MD Primary Care Provider Active Start: July 29, 2025 Dr. Gaetano Tilley MD Referring Provider Active Start: July 29, 2025 Dr. Gaetano Tilley MD Other Provider Active S tart: July 29, 2025 Dr. Elias Reich MD Attending Provider Active S tart: July 29, 2025 Team Status: Inactive Member Role/Relationship Status Dates Dr. Gaetano Tilley MD Primary Care Provider Active Start: July 23, 2025 End: July 23, 2025 Dr. Gaetano Tilley MD Attending Provider Active Start: July 23, 2025 End: July 23, 2025 Dr. Gaetano Tilley MD Referring Provider Active Start: July 23, 2025 End: July 23, 2025 Team Status: Active Member Role/Relationship Status Dates Dr. Gaetano Tilley MD Primary care physician Active Team Status: Inactive Member Role/Relationship Status Dates Dr. Gaetano Tilley MD Primary care physician Active Start: May 24, 2025 End: May 24, 2025 Dr. Sara Matute MD Attending physician Active Start: May 24, 2025 End: May 24, 2025 Dr. Sara Matute MD Referring Provider Active Start: May 24, 2025 End: May 24, 2025 Team Status: Inactive Member Role/Relationship Status Dates Dr. Gaetano Tilley MD Primary care physician Active Start: June 03, 2025 End: June 03, 2025 NP. Mercedes Crow Attending physician Active Sta rt: June 03, 2025 End: June 03, 2025 WOOD POLISHERJoseph Crow Referring Provider Active Star t: June 03, 2025 End: June 03, 2025 Team Status: Inactive Member Role/Relationship Status Dates Dr. Gaetano Tilley MD Primary care physician Active Start: July 23, 2025 End: July 23, 2025 Dr. Gaetano Tilley MD Attending physician Active Start: July 23, 2025 End: July 23, 2025 Dr. Gaetano Tilley MD Referring Provider Active Start: July 23, 2025 End: July 23, 2025 Team Status: Inactive Member Role/Relationship Status Dates Dr. Gaetano Tilley MD Primary care physician Active Start: July 24, 2025 End: July 24, 2025 Dr. Gaetano Tilley MD Attending physician Active Start: July 24, 2025 End: July 24, 2025 Dr. Gaetano Tilley MD Referring Provider Active Start: July 24, 2025 End: July 24, 2025 Team Status: Active Member Role/Relationship Status Dates Dr. Gaetano Tilley MD Primary care physician Active Start: July 29, 2025 Dr. Gaetano Tilley MD Referring Provider Active Start: July 29, 2025 Dr. Gaetano Tilley MD Nurse Practitioner Active Start: July 29, 2025 Dr. Elias Reich MD Attending physician Active Start: July 29, 2025 Team Status: Inactive Member Role/Relationship Status Dates Dr. Gaetano Tilley MD Primary care physician Active Start: August 13, 2025 End: August 13, 2025 Dr. Sara Matute MD Attending physician Active Start: August 13, 2025 End: August 13, 2025 Dr. Sara Mattue MD Referring Provider Active Start: August 13, 2025 End: August 13, 2025 INFORMATION SOURCE (unrecogn ized section and content) DATE CREATED AUTHOR 02/18/2022 [facility] DATE CREATED AUTHOR AUTHOR'S MAYE SKELTON 09/12/2025 [facility] Goals (unrecognized section and content) Goals [...] BE BASED ON THE PRIMARY CLINICAL RECORDS. [employer] [facility]. provides no warranty or guarantee of the accuracy or completeness of information in this document.
--- NOTE | 2025-09-21 08:11 | CT_ITS ---
PROCEDURE: CHEST WITHOUT CONTRAST 09/21/2025 REASON FOR EXAM: SOB TECHNIQUE: Chest CT without contrast. Coronal and Sagittal reconstruction series were provided. One or more dose reduction techniques were used (e.g., Automated exposure control, adjustment of the mA and/or kV according to patient size, use of iterative reconstruction technique RADIATION DOSE SUMMARY: CTDlvol: 10.06 mGy DLP: 349.35 mGycm COMPARISON: None. FINDINGS: Lower neck:The thyroid gland is normal. There is no supraclavicular lymphadenopathy. Mediastinum:No abnormal masses or lymphadenopathy. Heart and Aorta:The heart size is normal. There is no pericardial effusion. There is significant calcific vascular disease of the coronary arteries and thoracic aorta. There is aneurysmal dilatation of the mid ascending thoracic aorta measuring 4.1 cm in diameter. Esophagus:None. Upper Abdomen:There is calcific vascular disease of the visualized abdominal aorta. Chest wall:The soft tissues of the chest wall appear unremarkable. There is no axillary lymphadenopathy. There is mild multilevel degenerative disc disease of the thoracic spine. There is mild dextroscoliosis of the thoracic spine. Lungs, airways and pleura: There are patchy areas of ground-glass opacity in both lungs with associated traction bronchiectasis and bronchial wall thickening. There are subpleural bands noted most predominant in the upper lobes. There is a benign calcified granuloma in the upper lobe of the right lung. There are no noncalcified pulmonary nodules. There are no pleural effusions. CT/Chest without Contrast IMPRESSION: 1. Patchy areas of ground-glass opacity in the upper lobe of both lungs. 2. Traction bronchiectasis with bronchial wall thickening. 3. Subpleural bands, usually associated with prior pneumonia. 4. There are no noncalcified pulmonary nodules. 5. Calcific vascular disease. 6. Aneurysmal dilatation of the mid ascending thoracic aorta. Reading Location: [id number]
== END | disposition home or self-care (01) ==
LOC: CT 08:04
PROVIDERS: PCP Family Medicine; Referring Provider Internal Medicine Pulmonary Disease; Visit Provider Internal Medicine Pulmonary Disease
DX: R06.00 Dyspnea, unspecified (principal)
CPT/HCPCS: 71250

== ENCOUNTER → 2025-10-03 | Outpatient (CLI) | payer MEDICARE, OTHER, SELFPAY ==
[2025-10-03 09:58] LABS: Hematocrit 39.5 % (37-47); Hemoglobin 13.1 g/dL (12.0-15.0); Immature Granulocytes Count 0.010 X10^3/uL (0.0-0.0); Mean Corp Hgb Conc 33.2 g/dL (32-36); Mean Corpuscular Volume 98.3 fL (81-99); Mean Platelet Vol. 10.1 fl (6.2-12.0); NRBC Flagged by Analyzer 0 % (0-5); Platelet Count 229 K/mm3 (150-450); RBC Distribution Width CV 13.7 % (11.6-14.6); RBC Distribution Width SD 50.1 fl (35.1-43.9); Red Blood Count 4.02 M/mm3 (4.2-5.4); White Blood Count 4.6 K/mm3 (4.4-11.0)
[2025-10-03 10:49] LABS: AST(SGOT) 25 U/L (<=31); Alanine Aminotransfer ALT/SGPT 16 U/L (<=34); Albumin, Serum 4.2 g/dL (3.4-4.8); Alkaline Phosphatase 47 U/L (35-104); Anion Gap 9 (5-15); BUN 15 mg/dL (4-19); BUN/Creat Ratio 23.9 RATIO (10-20); Calcium,Total 9.3 mg/dL (7.6-11.0); Carbon Dioxide 25.3 mmol/L (21.0-32.0); Chloride 107 mmol/L (98-108); Cholesterol 310 mg/dL (<=200); Globulin 2.2 g/dL (2.2-4.2); Glucose 96 mg/dL (70-99); Low Density Lipoprotein Calc. 202 mg/dL; Magnesium 2.3 mg/dL (1.5-2.2); Potassium 4.3 mmol/L (3.3-5.1); Triglycerides 172 mg/dL; Very Low Density Lipoprotein 34 mg/dL (5-40); cholesterol:hdl ratio screen 4.05
== END | disposition home or self-care (01) ==
PROVIDERS: PCP Family Medicine; Referring Provider Internal Medicine Cardiovascular Disease; Visit Provider Internal Medicine Cardiovascular Disease
DX: I10 Essential (primary) hypertension (principal); E03.8 Other specified hypothyroidism
CPT/HCPCS: 36415; 80053; 80061; 83735; 84439; 84443; 85025

== ENCOUNTER 2025-10-21 09:48 | Day surgery (SDC) | payer MEDICARE, OTHER, SELFPAY ==
[2025-10-18 10:18] VITALS: BMI 28.0
--- OUTSIDE RECORDS SUMMARY | 2025-10-21 11:45 | XMS RPT_ITS | CCD ---
Author Organization [facility] CliniSytn Care Team Providers Care Skin Care Consultant Name Role Phone Suri Castillo Primary Care Provider Alison WEST, Dr. Gaetano Murray Primary Care Provider Juju WEST, Dr. Ruiz Attending Provider Juju WEST, Dr. Ruiz Referring Provider Alison WEST, Dr. Gaetano Murray Attending Provider Alison WEST, Dr. Gaetano Murray Referring Provider Alison WEST, Dr. Gaetano Murray Primary Care Provider [phone] Juju WEST, Dr. Ruiz Attending Provider Juju [...] Attending Provider NP. Mercedes Crow Referring Provider Dr. Gaetano Tilley MD Primary Care Provider [phone] Juju WEST, Dr. Ruiz Attending Provider Juju WEST, Dr. Ruiz Referring Provider Alison WEST, Dr. Gaetano Murray Attending Provider Alison WEST, Dr. Gaetano Murray Referring Provider Alison WEST, Dr. Gaetano Murray Other Provider Rachana WEST, Dr. Griffin Attending Provider Alison WEST, Dr. Gaetano Murray Primary Care Physician Juju WEST, Dr. Ruiz Attending Physician NP. Mercedes Crow Attending Physician Alison WEST, Dr. Gaetano Murray Attending Physician [phone] Alison WEST, Dr. Gaetano Murray Nurse Practitioner Rachana WEST, Dr. Griffin Attending Physician MooklanDeuce buttsma Referring Unavailable Vellanbeckie, Sara Attending Unavailable Gaetano Tilley Primary Care Unavailable Lauri Mayes Referring Unavailable Lauri Mayes Attending Unavailable Gaetano Tilley Primary Care Unavailable Gaetano Tilley Primary Care Unavailable Elias Reich Referring Unavailable Elias Reich Attending Unavailable SchGaetano wilkerson Primary Care Unavailable SchGaetano wilkerson Referring Unavailable Gaetano Tilley Consulting Unavailable Elias Reich Attending Unavailable Gaetano Tilley Primary Care Unavailable SchGaetano wilkerson Referring Unavailable Lauri Mayes Attending Unavailable SchGaetano wilkerson Primary Care Unavailable SchGaetano wilkerson Referring Unavailable SchGaetano wilkerson Attending Unavailable Gaetano Tilley Primary Care Unavailable Vellanki, Sara Attending Unavailable Vellanki, Sara Referring Unavailable Sara Matute Attending Unavailable Mooklanbeckie, Sara Referring Unavailable SchGaetano wilkerson Primary Care Unavailable SchGaetano wilkerson Primary Care Unavailable Vellanki, Sara Attending Unavailable Vellanki, Sara Referring Unavailable SchGaetano wilkerson Primary Care Unavailable Mercedes Crow Referring Unavailable Mercedes Crow Attending Unavailable Gaetano Tilley Primary Care Unavailable SchGaetano wilkerson Referring Unavailable SchGaetano wilkerson Attending Unavailable SchGaetano wilkerson Referring Unavailable SchGaetano wilkerson Attending Unavailable Schinlesly, Gaetano Murray Primary Care Unavailable SchGaetano wilkerson Referring Unavailable SchGaetano wilkerson Attending Unavailable Gaetano Tilley E Primary Care Unavailable SchGaetano wilkerson Primary Care Unavailable [facility] V Attending Unavailable Wisam Quintero V Referring Unavailable Gaetano Tilley Primary Care Unavailable Wisam Quintero V Attending Unavailable Wisam Quintero V Referring Unavailable Sara Matute Referring Unavailable Sara Matute Attending Unavailable Gaetano Tilley Primary Care Unavailable Medications Current Medications Medication Drug Class(es) [...] Problem Classification Problem Date Documented Date Episodic/Chronic Disorders of lipid metabolism (1 source) Mixed hyperlipidemia; Translations: [Mixed hyperlipidemia] Onset: 10-03-2025 Chronic Essential hypertension (1 source) Essential (primary) hypertension; Translations: [Essential (primary) hypertension] Onset: 02-05-2025 Chronic Fracture of lower limb (20 sources) Closed fracture of ankle; Translations: [Other fracture of right lower leg, initial encounter for closed fracture] 10-16-2020 Episodic Nonspecific chest pain (2 sources) Chest pain, unspecified; Translations: [Precordial pain] Onset: 10-03-2025 Episodic Other lower respiratory disease (1 source) Dyspnea, unspecified; Translations: [Dyspnea, unspecified] Onset: 09-25-2025 Episodic Other screening for suspected conditions (not [...] Test Name Value Interpretation Reference Range Facility CBC W/Diff, Automatedon 11-0 Absolute Lymph 1.51 X10 3/uL Normal 0.83-4.51 [facility] Comment on above: Order Comment: Order Date: 01/22/25 Order Info: 0184-1 - CBCD Performed By: #### L 500.4100, L500.4050, L506.0400, L501.5200, L501.9520, L100.0100 #### [facility] [address] [place], [place], [id number] Absolute Neut 2.4 X10 3/uL Normal 2.0-7.7 [facility] Comment on above: Order Comment: Order Date: 01/22/25 Order Info: 0184-1 - CBCD Performed By: #### L 500.4100, L500.4050, L506.0400, L501.5200, L501.9520, L100.0100 #### [facility] [address] [place], [address] Basophils/100 WBC (Bld) 1.1 % High 0-1 [facility] Comment on above: Order Comment: Order Date: 01/22/25 Order Info: 0184-1 - CBCD Performed By: #### L 500.4100, L500.4050, L506.0400, L501.5200, L501.9520, L100.0100 #### [facility] [address] [place], [address] Eosinophils/100 WBC (Bld) 6.4 % High 0-5 [facility] Comment on above: Order Comment: Order Date: 01/22/25 Order Info: 0184-1 - CBCD Performed By: #### L 500.4100, L500.4050, L506.0400, L501.5200, L501.9520, L100.0100 #### [facility] [address] [place], [address] Erythrocyte distribution width (RBC) [Ratio] 13.7 % Normal 11.6-14.6 [facility] Comment on above: Order Comment: Order Date: 01/22/25 Order Info: 0184-1 - CBCD Performed By: #### L 500.4100, L500.4050, L506.0400, L501.5200, L501.9520, L100.0100 #### [facility] [address] [place], [address] Hematocrit (Bld) [Volume fraction] 39.5 % Normal 37-47 [facility] Comment on above: Order Comment: Order Date: 01/22/25 Order Info: 0184-1 - CBCD Performed By: #### L 500.4100, L500.4050, L506.0400, L501.5200, L501.9520, L100.0100 #### [facility] [address] [place], [address] Hemoglobin (Bld) [Mass/Vol] 13.1 g/dL Normal 12.0-15.0 [facility] Comment on above: Order Comment: Order Date: 01/22/25 Order Info: 0184-1 - CBCD Performed By: #### L 500.4100, L500.4050, L506.0400, L501.5200, L501.9520, L100.0100 #### [facility] [address] [place], [address] IG% 0.200 Normal 0.0-0.9 [facility] Comment on above: Order Comment: Order Date: 01/22/25 Order Info: [id number] - CBCD Result Comment: IG% - Immature Granulocytes (promyelocytes, myelocytes and metamyelocytes) > 1% indicates that a LEFT SHIFT is Present. Performed By: #### L 500.4100, L500.4050, L506.0400, L501.5200, L501.9520, L100.0100 #### [facility] [address] [place], [address] Lymphocytes/100 WBC (Bld) 33.1 % Normal 19-41 [facility] Comment on above: Order Comment: Order Date: 01/22/25 Order Info: 0184-1 - CBCD Performed By: #### L 500.4100, L500.4050, L506.0400, L501.5200, L501.9520, L100.0100 #### [facility] [address] [place], [address] MCH (RBC) [Entitic mass] 32.6 pg High 27.0-32.0 [facility] Comment on above: Order Comment: Order Date: 01/22/25 Order Info: 0184-1 - CBCD Performed By: #### L 500.4100, L500.4050, L506.0400, L501.5200, L501.9520, L100.0100 #### [facility] [address] [place], [address] MCHC (RBC) [Mass/Vol] 33.2 g/dL Normal 32-36 [facility] Comment on above: Order Comment: Order Date: 01/22/25 Order Info: 0184-1 - CBCD Performed By: #### L 500.4100, L500.4050, L506.0400, L501.5200, L501.9520, L100.0100 #### [facility] [address] [place], [address] MCV (RBC) [Entitic vol] 98.3 fL Normal 81-99 [facility] Comment on above: Order Comment: Order Date: 01/22/25 Order Info: 0184- - CBCD Performed By: #### L 500.4100, L500.4050, L506.0400, L501.5200, L501.9520, L100.0100 #### [facility] [address] [place], [address] Monocytes/100 WBC (Bld) 7.7 % Normal 0-10 [facility] Comment on above: Order Comment: Order Date: 01/22/25 Order Info: 0184-1 - CBCD Performed By: #### L 500.4100, L500.4050, L506.0400, L501.5200, L501.9520, L100.0100 #### [facility] [address] [facility] [facility] [address] [place], [address] Neutrophils/100 WBC (Bld) 51.5 % Normal 47-70 [facility] Comment on above: Order Comment: Order Date: 01/22/25 Order Info: 0184-1 - CBCD Performed By: #### L 500.4100, L500.4050, L506.0400, L501.5200, L501.9520, L100.0100 #### [facility] [address] [place], [address] Nucleated RBC (Bld) [#/Vol] 0 10*3/uL Normal 0-5 [facility] Comment on above: Order Comment: Order Date: 01/22/25 Order Info: 0184-1 - CBCD Performed By: #### L 500.4100, L500.4050, L506.0400, L501.5200, L501.9520, L100.0100 #### [facility] [address] [place], [address] Platelet mean volume (Bld) [Entitic vol] 10.1 fL Normal 6.2-12.0 [facility] Comment on above: Order Comment: Order Date: 01/22/25 Order Info: 0184- - CBCD Performed By: #### L 500.4100, L500.4050, L506.0400, L501.5200, L501.9520, L100.0100 #### [facility] [address] [place], [address] Platelets (Bld) [#/Vol] 229 10*3/uL Normal 150-450 [facility] Comment on above: Order Comment: Order Date: 01/22/25 Order Info: 0184-1 - CBCD Performed By: #### L 500.4100, L500.4050, L506.0400, L501.5200, L501.9520, L100.0100 #### [facility] [address] [place], [address] RBC (Bld) [#/Vol] 4.02 10*6/uL Low 4.2-5.4 [facility] Comment on above: Order Comment: Order Date: 01/22/25 Order Info: 0184-1 - CBCD Performed By: #### L 500.4100, L500.4050, L506.0400, L501.5200, L501.9520, L100.0100 #### [facility] [address] [place], [address] RDW SD 50.1 fl High 35.1-43.9 [facility] Comment on above: Order Comment: Order Date: 01/22/25 Order Info: 0184-1 - CBCD Performed By: #### L 500.4100, L500.4050, L506.0400, L501.5200, L501.9520, L100.0100 #### [facility] [address] [place], [address] WBC (Bld) [#/Vol] 4.6 10*3/uL Normal 4.4-11.0 [facility] Comment on above: Order Comment: Order Date: 01/22/25 Order Info: 0184-1 - CBCD Performed By: #### L 500.4100, L500.4050, L506.0400, L501.5200, L501.9520, L100.0100 #### [facility] [address] [place], [address] Cardiology Visit Reporton Cardiology Visit Report [facility] [address] [place] [address] OFFICE VISIT Date of Service: 10/03/25 MR#: [id number] Acct: [id number] Name: AUGUSTUS TARIQ Rep #: [id number] : 1955 Provider: Dr. Lauri bhat MD Age/Sex: 70/F Location: [facility] Status: Signed HPI HPI History of Present Illness Details: Patient is a very pleasant 70-year-old white female who comes in today for a new patient visit for chest pain. Patient reports that she has developed some chest discomfort starting in June 2025. This started when she was walking at a fast pace she would slow down and stop and it would go away after about 10 minutes. She is now noticing that occurs when she is simply carrying groceries in from her car. It is predictable is described as a heavy weight sensation in her mid retrosternal area. 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 She has no prior history of a cardiac event. Patient does have a history of hyperlipidemia which is untreated due to multiple intolerances to multiple statins. She also has a history of hypertension which is well-controlled and she is not diabetic she has never smoked and she denies a family history of early coronary disease. The patient actually had a normal pharmacologic myocardial perfusion stress test with a preserved EF in July 2025. She does report that the symptoms have progressed since then and I am concerned that this represents potentially triple-vessel disease due to the fact that a CT scan showed extensive calcification in all of her coronary arteries September 21, 2025. Patient also has a history of colon cancer resected in 2013 is considered cured. She also has a history of dyspnea on exertion which is being evaluated in the pulmonary department. She had a the CT scan was done as part of this evaluation and she is due to at the further pulmonary testing. The patient did have a significant COVID infection requiring hospitalization for a month and was on oxygen for a prolonged period of time. Intake Vital Signs 11/18/21 14:56 10/03/25 07:49 Height 5 ft 7 in 5 ft 7 in Weight: 179 lb BMI 28.0 BP 123/73 H Blood Pressure Location Lt brachial Position Sitting Respiration 18 Pulse 65 Pulse Source Monitor Pulse Oximetry (%) 97 Oxygen Delivery Method room air Intake Visit Reasons: CP/HTN (ALISON) Flatbed Stitcher Required: No Accompanied by: Self Is patient in pain?: No Allergies No Known Allergies Allergy (Verified 10/03/25 07:49) Medications ???Medication ???Instructions ???Recorded ???Confirmed ???Type folic acid 1 mg tablet 1 mg PO DAILY 11/08/21 10/03/25 Hi story hydrocodone-acetaminophen 5-325mg 5 - 325 tab PO TID 11/08/2110/03 History 5mg-325mg prednisone 10 mg tablet 10 mg PO PRN PRN Pain 11/08/2105/22 History calcium carbonate 500 mg PO QDAY 09/27/25 10/03/25 H istory lisinopril 10 mg tablet 10 mg PO QDAY 09/27/25 10/03/25 Hi story methotrexate sodium 2.5 mg tablet 20 mg PO QWEEK 09/27/25 10/03/25 History multivitamin 1 tab PO QDAY 09/27/25 10/03/25 Hi story omega 7-aeg-nzj-fish oil 300 1 cap PO QDAY 09/27/25 10/03/25 Hi story mg-1,000 mg capsule (Fish Oil) omeprazole 20 mg capsule,delayed 20 mg PO QDAY 09/27/25 10/03/25 Hi story release turmeric 400 mg capsule 400 mg PO DAILY 09/27/25 10/03/25 History isosorbide mononitrate 30 mg 30 mg PO QAM #30 tabs 10/03/2505/22 Rx tablet,extended release 24 hr magnesium glycinate 100 mg (as 100 mg PO QDAY 10/03/25 10/03/25 H istory glycinate) tablet nitroglycerin 0.4 mg sublingual 0.4 mg sublingual Q5M PRN chest 10/03/25 Rx tablet pain #30 tabs Have you fallen in the past year?: No PFSH Medical History SOB (shortness of breath) on exertion Hyperlipidemia Chest pain Cancer Chronic pain Osteoporosis Hyperthyroidism Rheumatoid arthritis GERD (gastroesophageal reflux disease) Non-smoker Surgical History History of hip replacement H/O tubal ligation H/O lumpectomy History of colectomy Family History Father Cancer Mother Dementia Sister Breast cancer Kidney disease Hypertension Sister Breast cancer Hypertension Sister Dementia Sister Breast cancer Sister Breast cancer Hypertension Heart disease Sister Breast cancer Hypertension Brother Cancer Social History household members: spouse Smoking Status: Never smoker alcohol intake: never substance use type: does not use caffeine: Yes ROS Const Const: Po (more content not included)... Normal [facility] Comprehensive Metabolic Prof garo 10-03-2025 Albumin [Mass/Vol] 4.2 g/dL Normal 3.4-4.8 [facility] Comment on above: Order Comment: Order Date: 01/22/25 Order Info: 0786-1 - CMP Order Info: [id number] - LIPID Order Info: [id number] - MG Order Info: 3016-3 - TSH Order Info: 3024-7 - T4F Performed By: #### L 500.4100, L500.4050, L506.0400, L501.5200, L501.9520, L100.0100 #### [facility] [address] [place], [address] Albumin/Globulin [Mass ratio] 1.9 {ratio} Normal 0.9-2.4 [facility] Comment on above: Order Comment: Order Date: 01/22/25 Order Info: 86-1 - CMP Order Info: [id number] - LIPID Order Info: [id number] - MG Order Info: 3016-3 - TSH Order Info: 3024-7 - T4F Performed By: #### L 500.4100, L500.4050, L506.0400, L501.5200, L501.9520, L100.0100 #### [facility] [address] [place], [address] ALK PHOS 47 U/L Normal 35-104 [facility] Comment on above: Order Comment: Order Date: 01/22/25 Order Info: 86-1 - CMP Order Info: [id number] - LIPID Order Info: [id number] - MG Order Info: 3016-3 - TSH Order Info: 3024-7 - T4F Performed By: #### L 500.4100, L500.4050, L506.0400, L501.5200, L501.9520, L100.0100 #### [facility] [address] [place], [address] ALT [Catalytic activity/Vol] 16 U/L Normal <=34 [facility] Comment on above: Order Comment: Order Date: 01/22/25 Order Info: 0786-1 - CMP Order Info: [id number] - LIPID Order Info: 10003-2 - MG Order Info: 3016-3 - TSH Order Info: 3024-7 - T4F Performed By: #### L 500.4100, L500.4050, L506.0400, L501.5200, L501.9520, L100.0100 #### [facility] [address] [place], [address] AST [Catalytic activity/Vol] 25 U/L Normal <=31 [facility] Comment on above: Order Comment: Order Date: 01/22/25 Order Info: 0786-1 - CMP Order Info: [id number] - LIPID Order Info: [id number] - MG Order Info: 3016-3 - TSH Order Info: 3024-7 - T4F Performed By: #### L 500.4100, L500.4050, L506.0400, L501.5200, L501.9520, L100.0100 #### [facility] [address] [place], [place], [address] Bilirubin [Mass/Vol] 0.47 mg/dL Normal 0.00-1.30 [facility] Comment on above: Order Comment: Order Date: 01/22/25 Order Info: 785-1 - CMP Order Info: [id number] - LIPID Order Info: [id number] - MG Order Info: 3016-3 - TSH Order Info: 3024-7 - T4F Performed By: #### L 500.4100, L500.4050, L506.0400, L501.5200, L501.9520, L100.0100 #### [facility] [address] [place], [place], [address] BUN/CRE 23.9 RATIO High 10-20 [facility] Comment on above: Order Comment: Order Date: 01/22/25 Order Info: 0786-1 - CMP Order Info: [id number] - LIPID Order Info: [id number] - MG Order Info: 3016-3 - TSH Order Info: 3024-7 - T4F Performed By: #### L 500.4100, L500.4050, L506.0400, L501.5200, L501.9520, L100.0100 #### [facility] [address] [place], [address] Calcium [Mass/Vol] 9.3 mg/dL Normal 7.6-11.0 [facility] Comment on above: Order Comment: Order Date: 01/22/25 Order Info: 0786-1 - CMP Order Info: [id number] - LIPID Order Info: 17455-0 - MG Order Info: 3016-3 - TSH Order Info: 3024-7 - T4F Performed By: #### L 500.4100, L500.4050, L506.0400, L501.5200, L501.9520, L100.0100 #### [facility] [address] [place], [address] Chloride [Moles/Vol] 107 mmol/L Normal 98-108 [facility] Comment on above: Order Comment: Order Date: 01/22/25 Order Info: 07-1 - CMP Order Info: [id number] - LIPID Order Info: 04803-2 - MG Order Info: 3016-3 - TSH Order Info: 3024-7 - T4F Performed By: #### L 500.4100, L500.4050, L506.0400, L501.5200, L501.9520, L100.0100 #### [facility] [address] [place], [address] CO2 [Moles/Vol] 25.3 mmol/L Normal 21.0-32.0 [facility] Comment on above: Order Comment: Order Date: 01/22/25 Order Info: 0786-1 - CMP Order Info: 92536-1 - LIPID Order Info: [id number] - MG Order Info: 3016-3 - TSH Order Info: 3024-7 - T4F Performed By: #### L 500.4100, L500.4050, L506.0400, L501.5200, L501.9520, L100.0100 #### [facility] [address] [place], [address] Creatinine [Mass/Vol] 0.62 mg/dL Low 0.70-1.20 [facility] Comment on above: Order Comment: Order Date: 01/22/25 Order Info: 0786-1 - CMP Order Info: [id number] - LIPID Order Info: 23538-5 - MG Order Info: 3016-3 - TSH Order Info: 3024-7 - T4F Performed By: #### L 500.4100, L500.4050, L506.0400, L501.5200, L501.9520, L100.0100 #### [facility] [address] [place], [address] GAP 9 Normal 5-15 [facility] Comment on above: Order Comment: Order Date: 01/22/25 Order Info: 785-11 - CMP Order Info: [id number] - LIPID Order Info: [id number] - MG Order Info: 3 - TSH Order Info: 7 - T4F Performed By: #### L 500.4100, L500.4050, L506.0400, L501.5200, L501.9520, L100.0100 #### [facility] [address] [place], [place], [address] GFR/1.73 sq M.predicted among non-blacks MDRD (S/P/Bld) [Vol rate/Area] 97 mL/min/{1.73_m2} Normal >60 [facility] Comment on above: Order Comment: Order Date: 01/22/25 Order Info: 07-1 - CMP Order Info: 48860-9 - LIPID Order Info: 13753-4 - MG Order Info: 3 - TSH Order Info: [id number] - T4F Result Comment: mL/m in/1.73m2 CKD-EPI Creatinine Equation (2020) Performed By: #### L 500.4100, L500.4050, L506.0400, L501.5200, L501.9520, L100.0100 #### [facility] [address] [place], [address] Globulin (S) [Mass/Vol] 2.2 g/dL Normal 2.2-4.2 [facility] Comment on above: Order Comment: Order Date: 01/22/25 Order Info: 0786-1 - CMP Order Info: [id number] - LIPID Order Info: [id number] - MG Order Info: 3016-3 - TSH Order Info: 3024-7 - T4F Performed By: #### L 500.4100, L500.4050, L506.0400, L501.5200, L501.9520, L100.0100 #### [facility] [address] [place], [address] Glucose [Mass/Vol] 96 mg/dL Normal 70-99 [facility] Comment on above: Order Comment: Order Date: 01/22/25 Order Info: 785-1 - CMP Order Info: [id number] - LIPID Order Info: [id number] - MG Order Info: 301-3 - TSH Order Info: 3024-7 - T4F Performed By: #### L 500.4100, L500.4050, L506.0400, L501.5200, L501.9520, L100.0100 #### [facility] [address] [place], [address] Potassium [Moles/Vol] 4.3 mmol/L Normal 3.3-5.1 [facility] Comment on above: Order Comment: Order Date: 01/22/25 Order Info: 0786-1 - CMP Order Info: [id number] - LIPID Order Info: [id number] - MG Order Info: 3016-3 - TSH Order Info: 3024-7 - T4F Performed By: #### L 500.4100, L500.4050, L506.0400, L501.5200, L501.9520, L100.0100 #### [facility] [address] [place], [address] Sodium [Moles/Vol] 141 mmol/L Normal 133-145 [facility] Comment on above: Order Comment: Order Date: 01/22/25 Order Info: 0786-1 - CMP Order Info: [id number] - LIPID Order Info: 23709-9 - MG Order Info: 3016-3 - TSH Order Info: 3024-7 - T4F Performed By: #### L 500.4100, L500.4050, L506.0400, L501.5200, L501.9520, L100.0100 #### [facility] [address] [place], [address] T PROT 6.4 g/dL Normal 5.9-8.4 [facility] Comment on above: Order Comment: Order Date: 01/22/25 Order Info: 0786-1 - CMP Order Info: [id number] - LIPID Order Info: [id number] - MG Order Info: 3016-3 - TSH Order Info: 3024-7 - T4F Performed By: #### L 500.4100, L500.4050, L506.0400, L501.5200, L501.9520, L100.0100 #### [facility] [address] [place], [place], [address] Urea nitrogen [Mass/Vol] 15 mg/dL Normal 4-19 [facility] Comment on above: Order Comment: Order Date: 01/22/25 Order Info: 0786-1 - CMP Order Info: [id number] - LIPID Order Info: [id number] - MG Order Info: 3016-3 - TSH Order Info: 3024-7 - T4F Performed By: #### L 500.4100, L500.4050, L506.0400, L501.5200, L501.9520, L100.0100 #### [facility] [address] [place], [address] Lipid Profileon 10-03-2025 CHOL:HDL 4.05 Normal [facility] Comment on above: Order Comment: Order Date: 01/22/25Order Info: 0786-1 - CMPOrder Info: [id number] - LIPIDOrder Info: [id number] - MGOrder Info: 6-3 - TSHOrder Info: 3024-7 - T4F Performed By: #### L 100.0100, L500.4050 #### [facility] [address] [place], [address] Cholesterol [Mass/Vol] 310 mg/dL High <=200 [facility] Comment on above: Order Comment: Order Date: 01/22/25Order Info: 0786-1 - CMPOrder Info: [id number] - LIPIDOrder Info: [id number] - MGOrder Info: 3016-3 - TSHOrder Info: [id number] - T4F Result Comment: Chol esterol level, Desirable <200 mg/dL Borderline high cholesterol 200-239 mg/dL High cholesterol >=240 mg/dL Recommendations of the NCEP Adult Treatment Panel for the following risk-cutoff thresholds for the [place] population. Performed By: #### L 100.0100, L500.4050 #### [facility] [address] [place], [address] Cholesterol in HDL [Mass/Vol] 77 mg/dL Normal [facility] Comment on above: Order Comment: Order Date: 01/22/25Order Info: [id number] - CMPOrder Info: [id number] - LIPIDOrder Info: [id number] - MGOrder Info: 6-3 - TSHOrder Info: 3027 - T4F Result Comment: Dana onal Cholesterol Education Program (NCEP) guidelines: <40 mg/dL: Low HDL-cholesterol (major risk factor for CHD) >= 60 mg/dL: High HDL-cholesterol (negative risk factor for CHD) HDL-cholesterol is affected by a number of factors, e.g. smoking, exercise, hormones, sex and age. Performed By: #### L 100.0100, L500.4050 #### [facility] [address] [place], [address] Cholesterol in LDL [Mass/Vol] 202 mg/dL Normal [facility] Comment on above: Order Comment: Order Date: 01/22/25Order Info: [id number] - CMPOrder Info: [id number] - LIPIDOrder Info: [id number] - MGOrder Info: 3 - TSHOrder Info: 7 - T4F Result Comment: Bord hbdqrr=172-197 mg/dL Higher Plvu=627 mg/dL or greater Barr Equation 2020 for LDL-C Performed By: #### L 100.0100, L500.4050 #### [facility] [address] [place], [address] Cholesterol in VLDL [Mass/Vol] 34 mg/dL Normal 5-40 [facility] Comment on above: Order Comment: Order Date: 01/22/25Order Info: [id number] - CMPOrder Info: [id number] - LIPIDOrder Info: [id number] - MGOrder Info: 3 - TSHOrder Info: 7 - T4F Performed By: #### L 100.0100, L500.4050 #### [facility] [address] [place], [address] Triglyceride [Mass/Vol] 172 mg/dL Normal [facility] Comment on above: Order Comment: Order Date: 01/22/25Order Info: [id number] - CMPOrder Info: - LIPIDOrder Info: [id number] - MGOrder Info: 3 - TSHOrder Info: 3027 - T4F Result Comment: The drugs N-Acetylcysteine and Metamizole may falsely depress this assay. Normal range: <150 mg/dL Borderline High: 150-199 mg/dL High: 200-499 mg/dL Very High: >500 mg/dL Performed By: #### L 100.0100, L500.4050 #### [facility] [address] [place], [address] Magnesiumon 10-03-2025 Magnesium [Mass/Vol] 2.3 mg/dL High 1.5-2.2 [facility] Comment on above: Order Comment: Order Date: 01/22/25Order Info: [id number] - CMPOrder Info: [id number] - LIPIDOrder Info: [id number] - MGOrder Info: [id number] - TSHOrder Info: [id number] - T4F Performed By: #### L 100.0100, L500.4050 #### [facility] [address] [place], [address] T4 Free Directon 10-03-2025 T4 FREE DIRECT 0.90 ng/dL Normal 0.76-1.46 [facility] Comment on above: Order Comment: Order Date: 01/22/25Order Info: [id number] - CMPOrder Info: [id number] - LIPIDOrder Info: [id number] - MGOrder Info: [id number] - TSHOrder Info: [id number] - T4F Performed By: #### L 100.0100, L500.4050 #### [facility] [address] [place], [address] Thyroid Stim Hormone (TSH)on 10-03-2025 TSH 2.690 uIU/mL Normal 0.300-4.200 [facility] Comment on above: Order Comment: Order Date: 01/22/25Order Info: [id number] - CMPOrder Info: [id number] - LIPIDOrder Info: [id number] - MGOrder Info: [id number] - TSHOrder Info: [id number] - T4F Performed By: #### L 100.0100, L500.4050 #### [facility] [address] [place], [address] Chest without Contraston Chest without Contrast [facility] [address] [place] [address] Chest without Contrast MR#: [id number] Acct: [id number] Name: AUGUSTUS TARIQ Adam Rep #: [id number] : 1955 F 69 From: Romario Bose MD PCP: Dr. Gaetano Tilley MD Status: REG CLI Study: Chest without Contrast Date of Exam: 09/21/25 Exam# [id number] Ordering Dr: Wisam Quintero MD PROCEDURE: CHEST WITHOUT CONTRAST 09/21/2025 REASON FOR EXAM: SOB TECHNIQUE: Chest CT without contrast. Coronal and Sagittal reconstruction series were provided. One or more dose reduction techniques were used (e.g., Automated exposure control, adjustment of the mA and/or kV according to patient size, use of iterative reconstruction technique RADIATION DOSE SUMMARY: CTDlvol: 10.06 mGy DLP: 349.35 mGycm COMPARISON: None. FINDINGS: Lower neck:The thyroid gland is normal. There is no supraclavicular lymphadenopathy. Mediastinum:No abnormal masses or lymphadenopathy. Heart and Aorta:The heart size is normal. There is no pericardial effusion. There is significant calcific vascular disease of the coronary arteries and thoracic aorta. There is aneurysmal dilatation of the mid ascending thoracic aorta measuring 4.1 cm in diameter. Esophagus:None. Upper Abdomen:There is calcific vascular disease of the visualized abdominal aorta. Chest wall:The soft tissues of the chest wall appear unremarkable. There is no axillary lymphadenopathy. There is mild multilevel degenerative disc disease of the thoracic spine. There is mild dextroscoliosis of the thoracic spine. Lungs, airways and pleura: There are patchy areas of ground-glass opacity in both lungs with associated traction bronchiectasis and bronchial wall thickening. There are subpleural bands noted most predominant in the upper lobes. There is a benign calcified granuloma in the upper lobe of the right lung. There are no noncalcified pulmonary nodules. There are no pleural effusions. CT/Chest without Contrast IMPRESSION: 1. Patchy areas of ground-glass opacity in the upper lobe of both lungs. 2. Traction bronchiectasis with bronchial wall thickening. 3. Subpleural bands, usually associated with prior pneumonia. 4. There are no noncalcified pulmonary nodules. 5. Calcific vascular disease. 6. Aneurysmal dilatation of the mid ascending thoracic aorta. Reading Location: [id number] CC: Dr. Gaetano Tilley MD; Dr. Wisam Quintero MD Court Recorder: Signed Normal [facility] CRPon 09-04-2025 C-REACTIVE PROT < 3.00 Normal 0.0-3.0 [facility] Comment on above: Performed By: #### L 100.0100, L500.4050 #### [facility] [address] [place], [address] Erythrocyte Sed Rateon 09-04 SED RATE 4 mm/hr Normal 0-30 [facility] Comment on above: Performed By: #### L 100.0100, L500.4050 #### [facility] [address] [place], [address] Absolute lymphocyte countOrd ered By: aSra Matute on 08-13-2025 Lymphocytes Auto (Unsp spec) [#/Vol] 1.77 10*3/uL 0.83-4.51 [facility] Absolute neutrophil countOrd ered By: [facility] Juju on 08-13-2025 Neutrophils (Bld) [#/Vol] 2.4 10*3/uL 2.0-7.7 [facility] Anion gap in Serum or Plasma Ordered By: Sara Matute on 08-13-2025 Anion gap [Moles/Vol] 13 mmol/L 5-15 [facility] Automated lymphocyte count a s percentage of total leukocytesOrdered By: [facility] Juju on 08-13-2025 Lymphocytes/100 WBC Auto (Unsp spec) 38.5 % -41 [facility] BUN/creatinine ratioOrdered By: [facility] Juju on 08-13-2025 Urea nitrogen/Creatinine [Mass ratio] 13.7 mg/mg 10-20 [facility] Basophil percentageOrdered B y: Sara Matute on 08-13-2025 Basophils/100 WBC (Bld) 0.7 % 0-1 [facility] Bilirubin, totalOrdered By: Sara Matute on 08-13-2025 Bilirubin [Mass/Vol] 0.40 mg/dL 0.00-1.30 [facility] CBC W/Diff, Automatedon 07-29 Absolute Lymph 1.77 X10 3/uL Normal 0.83-4.51 [facility] Comment on above: Performed By: #### L 500.4050, L100.0100 #### [facility] [address] [place], [address] Absolute Neut 2.4 X10 3/uL Normal 2.0-7.7 [facility] Comment on above: Performed By: #### L 500.4050, L100.0100 #### [facility] [address] [place], [address] Basophils/100 WBC (Bld) 0.7 % Normal 0-1 [facility] Comment on above: Performed By: #### L 500.4050, L100.0100 #### [facility] [address] [place], [address] Eosinophils/100 WBC (Bld) 1.3 % Normal 0-5 [facility] Comment on above: Performed By: #### L 500.4050, L100.0100 #### [facility] [address] [place], [address] Erythrocyte distribution width (RBC) [Ratio] 13.6 % Normal 11.6-14.6 [facility] Comment on above: Performed By: #### L 500.4050, L100.0100 #### [facility] [address] [place], [address] Hematocrit (Bld) [Volume fraction] 40.2 % Normal 37-47 [facility] Comment on above: Performed By: #### L 500.4050, L100.0100 #### [facility] [address] [place], [address] Hemoglobin (Bld) [Mass/Vol] 13.2 g/dL Normal 12.0-15.0 [facility] Comment on above: Performed By: #### L 500.4050, L100.0100 #### [facility] [address] [place], [address] IG% 0.200 Normal 0.0-0.9 [facility] Comment on above: Result Comment: IG% - Immature Granulocytes (promyelocytes, myelocytes and metamyelocytes) > 1% indicates that a LEFT SHIFT is Present. Performed By: #### L 500.4050, L100.0100 #### [facility] [address] [place], [address] Lymphocytes/100 WBC (Bld) 38.5 % Normal 19-41 [facility] Comment on above: Performed By: #### L 500.4050, L100.0100 #### [facility] [address] [place], [address] MCH (RBC) [Entitic mass] 32.6 pg High 27.0-32.0 [facility] Comment on above: Performed By: #### L 500.4050, L100.0100 #### [facility] [address] [place], [address] MCHC (RBC) [Mass/Vol] 32.8 g/dL Normal 32-36 [facility] Comment on above: Performed By: #### L 500.4050, L100.0100 #### [facility] [address] [place], [address] MCV (RBC) [Entitic vol] 99.3 fL High 81-99 [facility] Comment on above: Performed By: #### L 500.4050, L100.0100 #### [facility] [address] [place], [address] Monocytes/100 WBC (Bld) 6.7 % Normal 0-10 [facility] Comment on above: Performed By: #### L 500.4050, L100.0100 #### [facility] [address] [place], [address] Neutrophils/100 WBC (Bld) 52.6 % Normal 47-70 [facility] Comment on above: Performed By: #### L 500.4050, L100.0100 #### [facility] [address] [place], [address] Nucleated RBC (Bld) [#/Vol] 0 10*3/uL Normal 0-5 [facility] Comment on above: Performed By: #### L 500.4050, L100.0100 #### [facility] [address] [place], [address] Platelet mean volume (Bld) [Entitic vol] 10.2 fL Normal 6.2-12.0 [facility] Comment on above: Performed By: #### L 500.4050, L100.0100 #### [facility] [address] [place], [address] Platelets (Bld) [#/Vol] 250 10*3/uL Normal 150-450 [facility] Comment on above: Performed By: #### L 500.4050, L100.0100 #### [facility] [address] [place], [address] RBC (Bld) [#/Vol] 4.05 10*6/uL Low 4.2-5.4 [facility] Comment on above: Performed By: #### L 500.4050, L100.0100 #### [facility] [address] [place], [address] RDW SD 49.6 fl High 35.1-43.9 [facility] Comment on above: Performed By: #### L 500.4050, L100.0100 #### [facility] [address] [place], [address] WBC (Bld) [#/Vol] 4.6 10*3/uL Normal 4.4-11.0 [facility] Comment on above: Performed By: #### L 500.4050, L100.0100 #### [facility] [address] [place], [address] Carbon dioxide, total [Moles /volume] in Central venous bloodOrdered By: Sara Matute on 08-13-2025 CO2 [Moles/Vol] 22.4 mmol/L 21.0-32.0 [facility] Chloride assayOrdered By: Waqar Matute on 08-13-2025 Chloride [Moles/Vol] 104 mmol/L 98-108 [facility] Comprehensive Metabolic Prof ilon 08-13-2025 Albumin [Mass/Vol] 4.3 g/dL Normal 3.4-4.8 [facility] Comment on above: Order Comment: LABS FOR VELLANKI ONLY Performed By: #### L 500.4050, L100.0100 #### [facility] [address] [place], [address] Albumin/Globulin [Mass ratio] 1.8 {ratio} Normal 0.9-2.4 [facility] Comment on above: Order Comment: LABS FOR VELLANKI ONLY Performed By: #### L 500.4050, L100.0100 #### [facility] [address] [place], [address] ALK PHOS 47 U/L Normal 35-104 [facility] Comment on above: Order Comment: LABS FOR VELLANKI ONLY Performed By: #### L 500.4050, L100.0100 #### [facility] [address] [place], [address] ALT [Catalytic activity/Vol] 17 U/L Normal <=34 [facility] Comment on above: Order Comment: LABS FOR VELLANKI ONLY Performed By: #### L 500.4050, L100.0100 #### [facility] [address] [place], [address] AST [Catalytic activity/Vol] 24 U/L Normal <=31 [facility] Comment on above: Order Comment: LABS FOR VELLANKI ONLY Performed By: #### L 500.4050, L100.0100 #### [facility] [address] [place], [address] Bilirubin [Mass/Vol] 0.40 mg/dL Normal 0.00-1.30 [facility] Comment on above: Order Comment: LABS FOR VELLANKI ONLY Performed By: #### L 500.4050, L100.0100 #### [facility] [address] [place], [address] BUN/CRE 13.7 RATIO Normal 10-20 [facility] Comment on above: Order Comment: LABS FOR VELLANKI ONLY Performed By: #### L 500.4050, L100.0100 #### [facility] [address] [place], [address] Calcium [Mass/Vol] 9.5 mg/dL Normal 7.6-11.0 [facility] Comment on above: Order Comment: LABS FOR VELLANKI ONLY Performed By: #### L 500.4050, L100.0100 #### [facility] [address] [place], [address] Chloride [Moles/Vol] 104 mmol/L Normal 98-108 [facility] Comment on above: Order Comment: LABS FOR VELLANKI ONLY Performed By: #### L 500.4050, L100.0100 #### [facility] [address] [place], [address] CO2 [Moles/Vol] 22.4 mmol/L Normal 21.0-32.0 [facility] Comment on above: Order Comment: LABS FOR VELLANKI ONLY Performed By: #### L 500.4050, L100.0100 #### [facility] [address] [place], [address] Creatinine [Mass/Vol] 0.69 mg/dL Low 0.70-1.20 [facility] Comment on above: Order Comment: LABS FOR VELLANKI ONLY Performed By: #### L 500.4050, L100.0100 #### [facility] [address] [place], [address] GAP 13 Normal 5-15 [facility] Comment on above: Order Comment: LABS FOR VELLANKI ONLY Performed By: #### L 500.4050, L100.0100 #### [facility] [address] [place], [address] GFR/1.73 sq M.predicted among non-blacks MDRD (S/P/Bld) [Vol rate/Area] 95 mL/min/{1.73_m2} Normal >60 [facility] Comment on above: Order Comment: LABS FOR VELLANKI ONLY Result Comment: mL/m in/1.73m2 CKD-EPI Creatinine Equation (2020) Performed By: #### L 500.4050, L100.0100 #### [facility] [address] [place], [address] Globulin (S) [Mass/Vol] 2.3 g/dL Normal 2.2-4.2 [facility] Comment on above: Order Comment: LABS FOR VELLANKI ONLY Performed By: #### L 500.4050, L100.0100 #### [facility] [address] [place], [address] Glucose [Mass/Vol] 111 mg/dL High 70-99 [facility] Comment on above: Order Comment: LABS FOR VELLANKI ONLY Performed By: #### L 500.4050, L100.0100 #### [facility] [address] [place], [address] Potassium [Moles/Vol] 3.9 mmol/L Normal 3.3-5.1 [facility] Comment on above: Order Comment: LABS FOR VELLANKI ONLY Performed By: #### L 500.4050, L100.0100 #### [facility] [address] [place], [address] Sodium [Moles/Vol] 140 mmol/L Normal 133-145 [facility] Comment on above: Order Comment: LABS FOR VELLANKI ONLY Performed By: #### L 500.4050, L100.0100 #### [facility] [address] [place], [address] T PROT 6.6 g/dL Normal 5.9-8.4 [facility] Comment on above: Order Comment: LABS FOR VELLANKI ONLY Performed By: #### L 500.4050, L100.0100 #### [facility] [address] [place], [address] Urea nitrogen [Mass/Vol] 9 mg/dL Normal 4-19 [facility] Comment on above: Order Comment: LABS FOR VELLANKI ONLY Performed By: #### L 500.4050, L100.0100 #### [facility] [address] [place], [address] Eosinophil percentageOrdered By: Sara Matute on 08-13-2025 Eosinophils/100 WBC (Bld) 1.3 % 0-5 [facility] Erythrocyte distribution wid th ratioOrdered By: [facility] Juju on 08-13-2025 Erythrocyte distribution width (RBC) [Ratio] 13.6 % 11.6-14.6 [facility] Erythrocyte distribution wid th standard deviationOrdered By: Sara Matute on 08-13-2025 Erythrocyte distribution width (RBC) [Ratio] 49.6 fl High 35.1-43.9 [facility] Glomerular filtration rate ( GFR) estimation/1.73 sq m using serum, plasma, or whole bOrdered By: Sara Matute on 08-13-2025 GFR/1.73 sq M.predicted among non-blacks MDRD (S/P/Bld) [Vol rate/Area] 95 mL/min/{1.73_m2} >60 [facility] Comment on above: mL/min/1.73m2 CKD-EP I Creatinine Equation (2020) Hematocrit Auto (Bld) [Volum e fraction]Ordered By: Sara Matute on 08-13-2025 Hematocrit (Bld) [Volume fraction] 40.2 % 37-47 [facility] [place] [facility] Hemoglobin measurementOrdere d By: Sara Matute on 08-13-2025 Hemoglobin (Bld) [Mass/Vol] 13.2 g/dL 12.0-15.0 [facility] Immature granulocytes/100 WB C Auto (Bld)Ordered By: Sara Matute on 08-13-2025 Immature granulocytes/100 WBC (Bld) 0.200 % 0.0-0.9 [facility] Comment on above: IG% - Immature Granu locytes (promyelocytes, myelocytes and metamyelocytes) > 1% indicates that a LEFT SHIFT is Present. Laboratory - Chemistry and C hemistry - challengeOrdered By: Sara Matute on 08-13-2025 AST [Catalytic activity/Vol] 24 U/L <32 [facility] MCV (mean corpuscular volume ) determinationOrdered By: Sara Matute on 08-13-2025 MCV (RBC) [Entitic vol] 99.3 fL High 81-99 [facility] Mean corpuscular hemoglobin (MCH) determinationOrdered By: Sara Matute on 08-13-2025 MCH (RBC) [Entitic mass] 32.6 pg High 27.0-32.0 [facility] Mean corpuscular hemoglobin concentration (MCHC) determinationOrdered By: Sara Matute on 08-13-2025 MCHC (RBC) [Mass/Vol] 32.8 g/dL 32-36 [facility] Mean platelet volume determi nationOrdered By: Sara Matute on 08-13-2025 Platelet mean volume (Bld) [Entitic vol] 10.2 fL 6.2-12.0 [facility] Monocyte percentageOrdered B y: Sara Matute on 08-13-2025 Monocytes/100 WBC (Bld) 6.7 % 0-10 [facility] Neutrophil percentageOrdered By: Sara Matute on 08-13-2025 Neutrophils/100 WBC (Bld) 52.6 % 47-70 [facility] Nucleated red blood cell per centageOrdered By: Sara Matute on 08-13-2025 Nucleated RBC/100 WBC (Bld) [Ratio] 0 % 0-5 [facility] Platelet countOrdered By: Waqar Matute on 08-13-2025 Platelets (Bld) [#/Vol] 250 10*3/uL 150-450 [facility] Potassium measurement (mass/ volume)Ordered By: Sara Matute on 08-13-2025 Potassium (Unsp spec) [Mass/Vol] 3.9 mmol/L 3.3-5.1 [facility] RBC Auto (Bld) [#/Vol]Ordere d By: Sara Matute on 08-13-2025 RBC (Bld) [#/Vol] 4.05 10*6/uL Low 4.2-5.4 [facility] Serum creatinine measurement (mass/volume)Ordered By: Sara Matute on 08-13-2025 Creatinine [Mass/Vol] 0.69 mg/dL Low 0.70-1.20 [facility] Serum globulin measurementOr dered By: Sara Matute on 08-13-2025 Globulin (S) [Mass/Vol] 2.3 g/dL 2.2-4.2 [facility] Serum glucose measurement (m ass/volume)Ordered By: Sara Matute on 08-13-2025 Glucose [Mass/Vol] 111 mg/dL High 70-99 [facility] Serum or plasma alanine parkinson otransferase (ALT) measurementOrdered By: Sara Matute on 08-13-2025 ALT [Catalytic activity/Vol] 17 U/L <35 [facility] Serum or plasma albumin lamine urement (mass/volume)Ordered By: Sara Matute on 08-13-2025 Albumin [Mass/Vol] 4.3 g/dL 3.4-4.8 [facility] Serum or plasma albumin/glob ulin mass ratioOrdered By: Sara Matute on 08-13-2025 Albumin/Globulin [Mass ratio] 1.8 {ratio} 0.9-2.4 [facility] Serum or plasma alkaline heike sphatase measurementOrdered By: Sara Matute on 08-13-2025 ALP [Catalytic activity/Vol] 47 U/L 35-104 [facility] Serum or plasma calcium lamine urement (mass/volume)Ordered By: Sara Matute on 08-13-2025 Calcium [Mass/Vol] 9.5 mg/dL 7.6-11.0 [facility] Serum or plasma urea nitroge n measurement (mass/volume)Ordered By: Sara Matute on 08-13-2025 Urea nitrogen [Mass/Vol] 9 mg/dL 4-19 [facility] Sodium levelOrdered By: Mazin Matute on 08-13-2025 Sodium [Moles/Vol] 140 mmol/L 133-145 [facility] Total proteinOrdered By: Deuce Matute on 08-13-2025 Protein [Mass/Vol] 6.6 g/dL 5.9-8.4 [facility] White blood cell (WBC) count Ordered By: Sara Matute on 08-13-2025 WBC (Bld) [#/Vol] 4.6 10*3/uL 4.4-11.0 [facility] Cardiovascular stress test r eportOrdered By: Elias Reich on 07-29-2025 Study report [facility] [address] [place] [address] MR#: [id number] Acct: [id number] Name: AUGUSTUS TARIQ Rep #: [id number] : 1955 69 From: Elias Reich MD Primary Care: Dr. Gaetano Tilley MD Sta tus: REG CLI Referring Dr: Gaetano Tilley [...] MD ~ Date Dictated: 07/29/251427 Date Transcribed: 07/29/251427 Court Recorder: [place] Signed [facility] Work Phone: Stress Reporton 07-29-2025 Stress Report [facility] [address] [place] [address] MR#: [id number] Acct: [id number] Name: AUGUSTUS TARIQ Rep #: [id number] : 1955 69 From: Elias Reich MD Primary Care: Dr. Gaetano Tilley MD Status: REG I Referring Dr: Gaetano Tilley MD Sex: F [...] MD Date Dictated: 07/29/251427 Date Transcribed: 07/29/251427 Court Recorder: [place] Signed Normal [facility] Absolute lymphocyte countOrd ered By: Gaetano Tilley on 07-23-2025 Lymphocytes Auto (Unsp spec) [#/Vol] 1.75 10*3/uL 0.83-4.51 [facility] Absolute neutrophil countOrd ered By: Gaetano Tilley on 07-23-2025 Neutrophils (Bld) [#/Vol] 2.3 10*3/uL 2.0-7.7 [facility] Anion gap in Serum or Plasma Ordered By: Gaetano Tilley on 07-23-2025 Anion gap [Moles/Vol] 12 mmol/L 5-15 [facility] Automated lymphocyte count a s percentage of total leukocytesOrdered By: Gaetano Tilley on 07-23-2025 Lymphocytes/100 WBC Auto (Unsp spec) 38.0 % 19-41 [facility] BUN/creatinine ratioOrdered By: Gaetano Tilley on 07-23-2025 Urea nitrogen/Creatinine [Mass ratio] 13.1 mg/mg 10-20 [facility] Basophil percentageOrdered B y: Gaetano Tilley on 07-23-2025 Basophils/100 WBC (Bld) 0.9 % 0-1 [facility] Bilirubin Test strip Ql (U)O rdered By: Gaetano Tilley on 07-23-2025 Bilirubin Ql (U) Negative Negative [facility] Bilirubin, totalOrdered By: Gaetano Tilley on 07-23-2025 Bilirubin [Mass/Vol] 0.39 mg/dL 0.00-1.30 [facility] CBC W/Diff, Automatedon 06-29 Absolute Lymph 1.75 X10 3/uL Normal 0.83-4.51 [facility] Comment on above: Order Comment: Order Date: 07/23/25Order Info: 0184-1 - CBCD Performed By: #### L 500.4100, L400.0001, L100.0100, L500.4050 #### [facility] [address] [place], [address] Absolute Neut 2.3 X10 3/uL Normal 2.0-7.7 [facility] Comment on above: Order Comment: Order Date: 07/23/25Order Info: [id number] - CBCD Performed By: #### L 500.4100, L400.0001, L100.0100, L500.4050 #### [facility] [address] [place], [address] Basophils/100 WBC (Bld) 0.9 % Normal 0-1 [facility] Comment on above: Order Comment: Order Date: 07/23/25Order Info: 0184-1 - CBCD Performed By: #### L 500.4100, L400.0001, L100.0100, L500.4050 #### [facility] [address] [place], [address] Eosinophils/100 WBC (Bld) 2.2 % Normal 0-5 [facility] Comment on above: Order Comment: Order Date: 07/23/25Order Info: 0184-1 - CBCD Performed By: #### L 500.4100, L400.0001, L100.0100, L500.4050 #### [facility] [address] [place], [address] Erythrocyte distribution width (RBC) [Ratio] 14.0 % Normal 11.6-14.6 [facility] Comment on above: Order Comment: Order Date: 07/23/25Order Info: 0184-1 - CBCD Performed By: #### L 500.4100, L400.0001, L100.0100, L500.4050 #### [facility] [address] [place], [address] Hematocrit (Bld) [Volume fraction] 41.0 % Normal 37-47 [facility] Comment on above: Order Comment: Order Date: 07/23/25Order Info: 0184-1 - CBCD Performed By: #### L 500.4100, L400.0001, L100.0100, L500.4050 #### [facility] [address] [place], [address] Hemoglobin (Bld) [Mass/Vol] 13.2 g/dL Normal 12.0-15.0 [facility] Comment on above: Order Comment: Order Date: 07/23/25Order Info: 0184-1 - CBCD Performed By: #### L 500.4100, L400.0001, L100.0100, L500.4050 #### [facility] [address] [place], [address] IG% 0.200 Normal 0.0-0.9 [facility] Comment on above: Order Comment: Order Date: 07/23/25Order Info: 0184-1 - CBCD Result Comment: IG% - Immature Granulocytes (promyelocytes, myelocytes and metamyelocytes) > 1% indicates that a LEFT SHIFT is Present. Performed By: #### L 500.4100, L400.0001, L100.0100, L500.4050 #### [facility] [address] [place], [address] Lymphocytes/100 WBC (Bld) 38.0 % Normal 19-41 [facility] Comment on above: Order Comment: Order Date: 07/23/25Order Info: 0184-1 - CBCD Performed By: #### L 500.4100, L400.0001, L100.0100, L500.4050 #### [facility] [address] [place], [address] MCH (RBC) [Entitic mass] 32.7 pg High 27.0-32.0 [facility] Comment on above: Order Comment: Order Date: 07/23/25Order Info: 0184-1 - CBCD Performed By: #### L 500.4100, L400.0001, L100.0100, L500.4050 #### [facility] [address] [place], [address] MCHC (RBC) [Mass/Vol] 32.2 g/dL Normal 32-36 [facility] Comment on above: Order Comment: Order Date: 07/23/25Order Info: [id number] - CBCD Performed By: #### L 500.4100, L400.0001, L100.0100, L500.4050 #### [facility] [address] [place], [address] MCV (RBC) [Entitic vol] 101.5 fL High 81-99 [facility] Comment on above: Order Comment: Order Date: 07/23/25Order Info: 0184-1 - CBCD Performed By: #### L 500.4100, L400.0001, L100.0100, L500.4050 #### [facility] [address] [place], [address] Monocytes/100 WBC (Bld) 8.3 % Normal 0-10 [facility] Comment on above: Order Comment: Order Date: 07/23/25Order Info: [id number] - CBCD Performed By: #### L 500.4100, L400.0001, L100.0100, L500.4050 #### [facility] [address] [place], [address] Neutrophils/100 WBC (Bld) 50.4 % Normal 47-70 [facility] Comment on above: Order Comment: Order Date: 07/23/25Order Info: [id number] - CBCD Performed By: #### L 500.4100, L400.0001, L100.0100, L500.4050 #### [facility] [address] [place], [address] Nucleated RBC (Bld) [#/Vol] 0 10*3/uL Normal 0-5 [facility] Comment on above: Order Comment: Order Date: 07/23/25Order Info: 018- - CBCD Performed By: #### L 500.4100, L400.0001, L100.0100, L500.4050 #### [facility] [address] [place], [address] Platelet mean volume (Bld) [Entitic vol] 9.9 fL Normal 6.2-12.0 [facility] Comment on above: Order Comment: Order Date: 07/23/25Order Info: 018- - CBCD Performed By: #### L 500.4100, L400.0001, L100.0100, L500.4050 #### [facility] [address] [place], [address] Platelets (Bld) [#/Vol] 271 10*3/uL Normal 150-450 [facility] Comment on above: Order Comment: Order Date: 07/23/25Order Info: [id number] - CBCD Performed By: #### L 500.4100, L400.0001, L100.0100, L500.4050 #### [facility] [address] [place], [address] RBC (Bld) [#/Vol] 4.04 10*6/uL Low 4.2-5.4 [facility] Comment on above: Order Comment: Order Date: 07/23/25Order Info: [id number] - CBCD Performed By: #### L 500.4100, L400.0001, L100.0100, L500.4050 #### [facility] [address] [facility] [place] [place], [address] RDW SD 52.9 fl High 35.1-43.9 [facility] Comment on above: Order Comment: Order Date: 07/23/25Order Info: [id number] - CBCD Performed By: #### L 500.4100, L400.0001, L100.0100, L500.4050 #### [facility] [address] [place], [address] WBC (Bld) [#/Vol] 4.6 10*3/uL Normal 4.4-11.0 [facility] Comment on above: Order Comment: Order Date: 07/23/25Order Info: [id number] - CBCD Performed By: #### L 500.4100, L400.0001, L100.0100, L500.4050 #### [facility] [address] [place], [address] Calculated very low density lipoprotein (VLDL) cholesterol measurementOrdered By: Gaetano Tilley on 07-23-2025 Calculated very low density lipoprotein (VLDL) cholesterol measurement 44 mg/dL High 5-40 [facility] Carbon dioxide, total [Moles /volume] in Central venous bloodOrdered By: Gaetano Tilley on 07-23-2025 CO2 [Moles/Vol] 25.4 mmol/L 21.0-32.0 [facility] Chest PA and Lateralon 07-23 Chest PA and L[address] [facility] [address] [place], [place] [address] Chest PA and Lateral MR#: [id number] Acct: [id number] Name: AUGUSTUS TARIQ Rep #: [id number] : 1955 F 69 From: Koby Calderon PCP: Dr. Gaetano Tilley MD Status: REG CLI Study: Chest PA and Lateral Date of Exam: 07/23/25 Exam# [id number] Ordering Dr: Gaetano Tilley MD PROCEDURE: CHEST [...] acute osseous change is noted. Reading Location: [place] [address] CC: Dr. Gaetano Tilley MD Court Recorder: Signed Normal [facility] Chloride assayOrdered By: Ting Tilley on 07-23-2025 Chloride [Moles/Vol] 104 mmol/L 98-108 [facility] Comprehensive Metabolic Prof ilon 07-23-2025 Albumin [Mass/Vol] 4.2 g/dL Normal 3.4-4.8 [facility] Comment on above: Order Comment: Order Date: 07/23/25Order Info: [id number] - CMPOrder Info: [id number] - LIPIDOrder Info: [id number] - TSHOrder Info: [id number] - T4F Performed By: #### L 500.4100, L400.0001, L100.0100, L500.4050 #### [facility] [address] [place], [address] Albumin/Globulin [Mass ratio] 1.8 {ratio} Normal 0.9-2.4 [facility] Comment on above: Order Comment: Order Date: 07/23/25Order Info: [id number] - CMPOrder Info: [id number] - LIPIDOrder Info: [id number] - TSHOrder Info: [id number] - T4F Performed By: #### L 500.4100, L400.0001, L100.0100, L500.4050 #### [facility] [address] [place], [address] ALK PHOS 53 U/L Normal 35-104 [facility] Comment on above: Order Comment: Order Date: 07/23/25Order Info: [id number] - CMPOrder Info: [id number] - LIPIDOrder Info: [id number] - TSHOrder Info: [id number] - T4F Performed By: #### L 500.4100, L400.0001, L100.0100, L500.4050 #### [facility] [address] [place], [address] ALT [Catalytic activity/Vol] 16 U/L Normal <=34 [facility] Comment on above: Order Comment: Order Date: 07/23/25Order Info: [id number] - CMPOrder Info: [id number] - LIPIDOrder Info: [id number] - TSHOrder Info: [id number] - T4F Performed By: #### L 500.4100, L400.0001, L100.0100, L500.4050 #### [facility] [address] [place], [address] AST [Catalytic activity/Vol] 25 U/L Normal <=31 [facility] Comment on above: Order Comment: Order Date: 07/23/25Order Info: [id number] - CMPOrder Info: [id number] - LIPIDOrder Info: [id number] - TSHOrder Info: [id number] - T4F Performed By: #### L 500.4100, L400.0001, L100.0100, L500.4050 #### [facility] [address] [place], [address] Bilirubin [Mass/Vol] 0.39 mg/dL Normal 0.00-1.30 [facility] Comment on above: Order Comment: Order Date: 07/23/25Order Info: [id number] - CMPOrder Info: [id number] - LIPIDOrder Info: [id number] - TSHOrder Info: 3024-7 - T4F Performed By: #### L 500.4100, L400.0001, L100.0100, L500.4050 #### [facility] [address] [place], [address] BUN/CRE 13.1 RATIO Normal 10-20 [facility] Comment on above: Order Comment: Order Date: 07/23/25Order Info: [id number] - CMPOrder Info: [id number] - LIPIDOrder Info: 3 - TSHOrder Info: [id number] - T4F Performed By: #### L 500.4100, L400.0001, L100.0100, L500.4050 #### [facility] [address] [place], [address] Calcium [Mass/Vol] 9.7 mg/dL Normal 7.6-11.0 [facility] Comment on above: Order Comment: Order Date: 07/23/25Order Info: [id number] - CMPOrder Info: [id number] - LIPIDOrder Info: 3 - TSHOrder Info: [id number] - T4F Performed By: #### L 500.4100, L400.0001, L100.0100, L500.4050 #### [facility] [address] [place], [address] Chloride [Moles/Vol] 104 mmol/L Normal 98-108 [facility] Comment on above: Order Comment: Order Date: 07/23/25Order Info: [id number] - CMPOrder Info: [id number] - LIPIDOrder Info: 63 - TSHOrder Info: 3024-7 - T4F Performed By: #### L 500.4100, L400.0001, L100.0100, L500.4050 #### [facility] [address] [place], [address] CO2 [Moles/Vol] 25.4 mmol/L Normal 21.0-32.0 [facility] Comment on above: Order Comment: Order Date: 07/23/25Order Info: [id number] - CMPOrder Info: [id number] - LIPIDOrder Info: [id number] - TSHOrder Info: 3024-7 - T4F Performed By: #### L 500.4100, L400.0001, L100.0100, L500.4050 #### [facility] [address] [place], [address] Creatinine [Mass/Vol] 0.71 mg/dL Normal 0.70-1.20 [facility] Comment on above: Order Comment: Order Date: 07/23/25Order Info: 86-1 - CMPOrder Info: [id number] - LIPIDOrder Info: 6-3 - TSHOrder Info: 3024-7 - T4F Performed By: #### L 500.4100, L400.0001, L100.0100, L500.4050 #### [facility] [address] [place], [address] GAP 12 Normal 5-15 [facility] Comment on above: Order Comment: Order Date: 07/23/25Order Info: 07- - CMPOrder Info: [id number] - LIPIDOrder Info: 63 - TSHOrder Info: 3024-7 - T4F Performed By: #### L 500.4100, L400.0001, L100.0100, L500.4050 #### [facility] [address] [place], [address] GFR/1.73 sq M.predicted among non-blacks MDRD (S/P/Bld) [Vol rate/Area] 93 mL/min/{1.73_m2} Normal >60 [facility] Comment on above: Order Comment: Order Date: 07/23/25Order Info: [id number] - CMPOrder Info: [id number] - LIPIDOrder Info: [id number] - TSHOrder Info: 3024-7 - T4F Result Comment: mL/m in/1.73m2 CKD-EPI Creatinine Equation (2020) Performed By: #### L 500.4100, L400.0001, L100.0100, L500.4050 #### [facility] [address] [place], [address] Globulin (S) [Mass/Vol] 2.4 g/dL Normal 2.2-4.2 [facility] Comment on above: Order Comment: Order Date: 07/23/25Order Info: [id number] - CMPOrder Info: [id number] - LIPIDOrder Info: [id number] - TSHOrder Info: 3024-7 - T4F Performed By: #### L 500.4100, L400.0001, L100.0100, L500.4050 #### [facility] [address] [place], [address] Glucose [Mass/Vol] 79 mg/dL Normal 70-99 [facility] Comment on above: Order Comment: Order Date: 07/23/25Order Info: [id number] - CMPOrder Info: [id number] - LIPIDOrder Info: [id number] - TSHOrder Info: 3024-7 - T4F Performed By: #### L 500.4100, L400.0001, L100.0100, L500.4050 #### [facility] [address] [place], [address] Potassium [Moles/Vol] 3.9 mmol/L Normal 3.3-5.1 [facility] Comment on above: Order Comment: Order Date: 07/23/25Order Info: [id number] - CMPOrder Info: [id number] - LIPIDOrder Info: [id number] - TSHOrder Info: 3024-7 - T4F Performed By: #### L 500.4100, L400.0001, L100.0100, L500.4050 #### [facility] [address] [place], [address] Sodium [Moles/Vol] 141 mmol/L Normal 133-145 [facility] Comment on above: Order Comment: Order Date: 07/23/25Order Info: [id number] - CMPOrder Info: [id number] - LIPIDOrder Info: [id number] - TSHOrder Info: 3027 - T4F Performed By: #### L 500.4100, L400.0001, L100.0100, L500.4050 #### [facility] [address] [place], [address] T PROT 6.6 g/dL Normal 5.9-8.4 [facility] Comment on above: Order Comment: Order Date: 07/23/25Order Info: [id number] - CMPOrder Info: [id number] - LIPIDOrder Info: 3 - TSHOrder Info: 3027 - T4F Performed By: #### L 500.4100, L400.0001, L100.0100, L500.4050 #### [facility] [address] [place], [address] Urea nitrogen [Mass/Vol] 9 mg/dL Normal 4-19 [facility] Comment on above: Order Comment: Order Date: 07/23/25Order Info: [id number] - CMPOrder Info: [id number] - LIPIDOrder Info: 3 - TSHOrder Info: 4-7 - T4F Performed By: #### L 500.4100, L400.0001, L100.0100, L500.4050 #### [facility] [address] [place], [address] Eosinophil percentageOrdered By: Gaetano Tilley on 07-23-2025 Eosinophils/100 WBC (Bld) 2.2 % 0-5 [facility] Erythrocyte distribution wid th ratioOrdered By: Gaetano Tilley on 07-23-2025 Erythrocyte distribution width (RBC) [Ratio] 14.0 % 11.6-14.6 [facility] Erythrocyte distribution wid th standard deviationOrdered By: Gaetano Tilley on 07-23-2025 Erythrocyte distribution width (RBC) [Ratio] 52.9 fl High 35.1-43.9 [facility] Glomerular filtration rate ( GFR) estimation/1.73 sq m using serum, plasma, or whole bOrdered By: Gaetano Tilley on 07-23-2025 GFR/1.73 sq M.predicted among non-blacks MDRD (S/P/Bld) [Vol rate/Area] 93 mL/min/{1.73_m2} >60 [facility] Comment on above: mL/min/1.73m2 CKD-EP I Creatinine Equation (2020) Hematocrit Auto (Bld) [Volum e fraction]Ordered By: Gaetano Tilley on 07-23-2025 Hematocrit (Bld) [Volume fraction] 41.0 % 37-47 [facility] Hemoglobin measurementOrdere d By: Gaetano Tilley on 07-23-2025 Hemoglobin (Bld) [Mass/Vol] 13.2 g/dL 12.0-15.0 [facility] Immature granulocytes/100 WB C Auto (Bld)Ordered By: Gaetano Tilley on 07-23-2025 Immature granulocytes/100 WBC (Bld) 0.200 % 0.0-0.9 [facility] Comment on above: IG% - Immature Granu locytes (promyelocytes, myelocytes and metamyelocytes) > 1% indicates that a LEFT SHIFT is Present. Ketones Test strip Ql (U)Ord ered By: Gaetano Tilley on 07-23-2025 Ketones Ql (U) Negative Negative [facility] LDL calc ser/plasOrdered By: Gaetano Tilley on 07-23-2025 Cholesterol in LDL [Mass/Vol] 222 mg/dL [facility] Comment on above: Foeoqtahte=826-108 m g/dL & Higher Lwwn=153 mg/dL or greaterFriedwald Equation for LDL-C Laboratory - Chemistry and C hemistry - challengeOrdered By: Gaetano Tilley on 07-23-2025 AST [Catalytic activity/Vol] 25 U/L <32 [facility] Lipid Profileon 07-23-2025 CHOL:HDL 4.67 Normal [facility] Comment on above: Order Comment: Order Date: 07/23/25Order Info: [id number] - CMPOrder Info: [id number] - LIPIDOrder Info: [id number] - TSHOrder Info: [id number] - T4F Performed By: #### L 500.4100, L400.0001, L100.0100, L500.4050 #### [facility] [address] [place], [address] Cholesterol [Mass/Vol] 339 mg/dL High <=200 [facility] Comment on above: Order Comment: Order Date: 07/23/25Order Info: [id number] - CMPOrder Info: [id number] - LIPIDOrder Info: 6-3 - TSHOrder Info: [id number] - T4F Result Comment: Chol esterol level, Desirable <200 mg/dL Borderline high cholesterol 200-239 mg/dL High cholesterol >=240 mg/dL Recommendations of the NCEP Adult Treatment Panel for the following risk-cutoff thresholds for the [place] population. Performed By: #### L 500.4100, L400.0001, L100.0100, L500.4050 #### [facility] [address] [place], [address] Cholesterol in HDL [Mass/Vol] 73 mg/dL Normal [facility] Comment on above: Order Comment: Order Date: 07/23/25Order Info: [id number] - CMPOrder Info: [id number] - LIPIDOrder Info: 3 - TSHOrder Info: 7 - T4F Result Comment: [place] onal Cholesterol Education Program (NCEP) guidelines: <40 mg/dL: Low HDL-cholesterol (major risk factor for CHD) >= 60 mg/dL: High HDL-cholesterol (negative risk factor for CHD) HDL-cholesterol is affected by a number of factors, e.g. smoking, exercise, hormones, sex and age. Performed By: #### L 500.4100, L400.0001, L100.0100, L500.4050 #### [facility] [address] [place], [address] Cholesterol in LDL [Mass/Vol] 222 mg/dL Normal [facility] Comment on above: Order Comment: Order Date: 07/23/25Order Info: [id number] - CMPOrder Info: [id number] - LIPIDOrder Info: 6-3 - TSHOrder Info: [id number] - T4F Result Comment: Bord dnpvbj=863-474 mg/dL Higher Uvwb=262 mg/dL or greater Friedwald Equation for LDL-C Performed By: #### L 500.4100, L400.0001, L100.0100, L500.4050 #### [facility] [address] [place], [address] Cholesterol in VLDL [Mass/Vol] 44 mg/dL High 5-40 [facility] Comment on above: Order Comment: Order Date: 07/23/25Order Info: [id number] - CMPOrder Info: [id number] - LIPIDOrder Info: 3 - TSHOrder Info: [id number] T4F Performed By: #### L 500.4100, L400.0001, L100.0100, L500.4050 #### [facility] [address] [place], [address] Triglyceride [Mass/Vol] 221 mg/dL [facility] Comment on above: Order Comment: Order Date: 07/23/25Order Info: [id number] - CMPOrder Info: [id number] - LIPIDOrder Info: [id number] - TSHOrder Info: [id number] - T4F Result Comment: The drugs N-Acetylcysteine and Metamizole may falsely depress this assay. Normal range: <150 mg/dL Borderline High: 150-199 mg/dL High: 200-499 mg/dL Very High: >500 mg/dL Performed By: #### L 500.4100, L400.0001, L100.0100, L500.4050 #### [facility] [address] [place], [address] MCV (mean corpuscular volume ) determinationOrdered By: Gaetano Tilley on 07-23-2025 MCV (RBC) [Entitic vol] 101.5 fL High 81-99 [facility] Mean corpuscular hemoglobin (MCH) determinationOrdered By: Gaetano Tilley on 07-23-2025 MCH (RBC) [Entitic mass] 32.7 pg High 27.0-32.0 [facility] Mean corpuscular hemoglobin concentration (MCHC) determinationOrdered By: Gaetano Tilley on 07-23-2025 MCHC (RBC) [Mass/Vol] 32.2 g/dL 32-36 [facility] Mean platelet volume determi nationOrdered By: Gaetano Tilley on 07-23-2025 Platelet mean volume (Bld) [Entitic vol] 9.9 fL 6.2-12.0 [facility] Microscopic analysis of urin e for red blood cells (RBC)Ordered By: Gaetano Tilley on 07-23-2025 Microscopic analysis of urine for red blood cells (RBC) 0 SEEN /hpf 0-5 [facility] Monocyte percentageOrdered B y: Gaetano Tilley on 07-23-2025 Monocytes/100 WBC (Bld) 8.3 % 0-10 [facility] Mucus LM Ql (Urine sed)Order ed By: Gaetano Tilley on 07-23-2025 Mucus Ql (Urine sed) 0 SEEN /hpf [facility] Neutrophil percentageOrdered By: Gaetano Tilley on 07-23-2025 Neutrophils/100 WBC (Bld) 50.4 % 47-70 [facility] Nitrite Test strip Ql (U)Ord ered By: Gaetano Tilley on 07-23-2025 Nitrite Ql (U) Negative Negative [facility] Nucleated red blood cell per centageOrdered By: Gaetano Tilley on 07-23-2025 Nucleated RBC/100 WBC (Bld) [Ratio] 0 % 0-5 [facility] Platelet countOrdered By: Ting Tilley on 07-23-2025 Platelets (Bld) [#/Vol] 271 10*3/uL 150-450 [facility] Potassium measurement (mass/ volume)Ordered By: Gaetano Tilley on 07-23-2025 Potassium (Unsp spec) [Mass/Vol] 3.9 mmol/L 3.3-5.1 [facility] Protein Test strip Ql (U)Ord ered By: Gaetano Tilley on 07-23-2025 Protein Ql (U) Negative Negative [facility] RBC Auto (Bld) [#/Vol]Ordere d By: Gaetano Tilley on 07-23-2025 RBC (Bld) [#/Vol] 4.04 10*6/uL Low 4.2-5.4 [facility] Screening total cholesterol/ high density lipoprotein (HDL) cholesterol ratioOrdered By: Gaetano Tilley on 07-23-2025 Cholesterol.total/Adrienne sterol in HDL [Mass ratio] 4.67 {ratio} [facility] Serum creatinine measurement (mass/volume)Ordered By: Gaetano Tilley on 07-23-2025 Creatinine [Mass/Vol] 0.71 mg/dL 0.70-1.20 [facility] Serum globulin measurementOr dered By: Gaetano Tilley on 07-23-2025 Globulin (S) [Mass/Vol] 2.4 g/dL 2.2-4.2 [facility] Serum glucose measurement (m ass/volume)Ordered By: Gaetano Tilley on 07-23-2025 Glucose [Mass/Vol] 79 mg/dL 70-99 [facility] Serum or plasma alanine parkinson otransferase (ALT) measurementOrdered By: Gaetano Tilley on 07-23-2025 ALT [Catalytic activity/Vol] 16 U/L <35 [facility] Serum or plasma albumin lamine urement (mass/volume)Ordered By: Gaetano Tilley on 07-23-2025 Albumin [Mass/Vol] 4.2 g/dL 3.4-4.8 [facility] Serum or plasma albumin/glob ulin mass ratioOrdered By: Gaetano Tilley on 07-23-2025 Albumin/Globulin [Mass ratio] 1.8 {ratio} 0.9-2.4 [facility] Serum or plasma alkaline heike sphatase measurementOrdered By: Gaetano Tilley on 07-23-2025 ALP [Catalytic activity/Vol] 53 U/L 35-104 [facility] Serum or plasma calcium lamine urement (mass/volume)Ordered By: Gaetano Tilley on 07-23-2025 Calcium [Mass/Vol] 9.7 mg/dL 7.6-11.0 [facility] Serum or plasma cholesterol in HDL measurement (mass/volume)Ordered By: Gaetano Tilley on 07-23-2025 Cholesterol in HDL [Mass/Vol] 73 mg/dL >40 [facility] Comment on above: National Cholesterol Education Program (NCEP) guidelines:<40 mg/dL: Low HDL-cholesterol (major risk factor for CHD)>= 60 mg/dL: High HDL-cholesterol (negative risk factor for CHD)HDL-cholesterol is affected by a number of factors, e.g. smoking, exercise, hormones, sex and age. Serum or plasma cholesterol measurement (mass/volume)Ordered By: Gaetano Tilley on 07-23-2025 Cholesterol [Mass/Vol] 339 mg/dL High <201 [facility] Comment on above: Cholesterol level, D esirable <200 mg/dLBorderline high cholesterol 200-239 mg/dLHigh cholesterol >=240 mg/dLRecommendations of the NCEP Adult Treatment Panel for the following risk-cutoff thresholds for the [place] population. Serum or plasma urea nitroge n measurement (mass/volume)Ordered By: Gaetano Tilley on 07-23-2025 Urea nitrogen [Mass/Vol] 9 mg/dL 4-19 [facility] Sodium levelOrdered By: Gaetano Tilley on 07-23-2025 Sodium [Moles/Vol] 141 mmol/L 133-145 [facility] [place] epithelial cells de tection in urine sediment by light microscopyOrdered By: Gaetano Tilley on 07-23-2025 Epithelial cells.squamous LM Ql (Urine sed) 0 SEEN /hpf 5-10 [facility] T4 Free Directon 07-23-2025 T4 FREE DIRECT 1.20 ng/dL Normal 0.76-1.46 [facility] Comment on above: Order Comment: Order Date: 07/23/25Order Info: [id number] - CMPOrder Info: [id number] - LIPIDOrder Info: [id number] - TSHOrder Info: [id number] - T4F Performed By: #### L 500.4100, L400.0001, L100.0100, L500.4050 #### [facility] [address] [place], [address] T4 freeOrdered By: Gaetano hu on 07-23-2025 Free T4 [Mass/Vol] 1.20 ng/dL 0.76-1.46 [facility] TSH DL <= 0.005 mIU/L QnOrde red By: Gaetano Tilley on 07-23-2025 TSH Qn 4.540 uIU/mL High 0.300-4.200 [facility] Thyroid Stim Hormone (TSH)on 07-23-2025 TSH 4.540 uIU/mL High 0.300-4.200 [facility] Comment on above: Order Comment: Order Date: 07/23/25Order Info: [id number] - CMPOrder Info: [id number] - LIPIDOrder Info: [id number] - TSHOrder Info: [id number] - T4F Performed By: #### L 500.4100, L400.0001, L100.0100, L500.4050 #### [facility] [address] [place], [address] Total proteinOrdered By: Venkat Tilley on 07-23-2025 Protein [Mass/Vol] 6.6 g/dL 5.9-8.4 [facility] Triglycerides measurementOrd ered By: Gaetano Tilley on 07-23-2025 Triglyceride [Mass/Vol] 221 mg/dL High <199 [facility] Comment on above: The drugs N-Acetylcy steine and Metamizole may falsely depress this assay. Normal range: <150 mg/dLBorderline High: 150-199 mg/dLHigh: 200-499 mg/dLVery High: >500 mg/dL Urinalysis, Completeon 07-23 BACTERIA 0 SEEN Normal None Seen [facility] Comment on above: Order Comment: CLEAN CATCH Performed By: #### L 500.4100, L400.0001, L100.0100, L500.4050 #### [facility] [address] [place], [address] EPI,SQUAMOUS 0 SEEN Normal 5-10 [facility] Comment on above: Order Comment: CLEAN CATCH Performed By: #### L 500.4100, L400.0001, L100.0100, L500.4050 #### [facility] [address] [place], [address] Mucus Ql (Urine sed) 0 SEEN Normal [facility] Comment on above: Order Comment: CLEAN CATCH Performed By: #### L 500.4100, L400.0001, L100.0100, L500.4050 #### [facility] [address] [place], [address] RBC 0 SEEN Normal 0-5 [facility] Comment on above: Order Comment: CLEAN CATCH Performed By: #### L 500.4100, L400.0001, L100.0100, L500.4050 #### [facility] [address] [place], [address] WBC 0 SEEN Normal 0-5 [facility] Comment on above: Order Comment: CLEAN CATCH Performed By: #### L 500.4100, L400.0001, L100.0100, L500.4050 #### [facility] [address] [place], [address] Urine clarityOrdered By: Venkat Tilley on 07-23-2025 Clarity (U) Clear Clear [facility] Urine color determinationOrd ered By: Gaetano Tilley on 07-23-2025 Color (U) Yellow Yellow [facility] Urine glucose detectionOrder ed By: Gaetano Tilley on 07-23-2025 Glucose Ql (U) Normal mg/dl Normal [facility] Urine leukocyte esterase det ection by dipstickOrdered By: Gaetano Tilley on 07-23-2025 Leukocyte esterase Test strip Ql (U) Negative Negative [facility] Urine pHOrdered By: Gaetano wilkerson on 07-23-2025 pH (U) 6.0 [pH] 5.0 - 8.0 [facility] Urine sediment bacteria coun t by microscopy (number/high power field)Ordered By: Gaetano Tilley on 07-23-2025 Bacteria LM.HPF (Urine sed) [#/Area] 0 /[HPF] None Seen [facility] Urine specific gravity measu rementOrdered By: Gaetano Tilley on 07-23-2025 Specific gravity (U) [Rel density] 1.015 1.002-1.030 [facility] Urine urobilinogen measureme ntOrdered By: Gaetano Tilley on 07-23-2025 Urobilinogen Ql (U) Normal mg/dl Normal [facility] Vitamin D,25 Hydroxyon 07-23 Vitamin D 25-OH 41.2 ng/mL Normal 30-100 [facility] Comment on above: Order Comment: Order Date: 07/23/25Order Info: [id number] - CMPOrder Info: [id number] - LIPIDOrder Info: [id number] - TSHOrder Info: [id number] - T4F Result Comment: Libby min D Status Deficiency: <20 ng/mL (50nmol/L) Insufficiency: 20-30 ng/mL (50-75 nmol/L) Sufficiency: 30-100 ng/mL (75-250 nmol/L) Toxicity: >100 ng/mL (>250 nmol/L) Performed By: #### L 500.4100, L400.0001, L100.0100, L500.4050 #### [facility] [address] [facility] [place], [address] White blood cell (WBC) count Ordered By: Gaetano Tilley on 07-23-2025 WBC (Bld) [#/Vol] 4.6 10*3/uL 4.4-11.0 [facility] White blood cell countOrdere d By: Gaetano Tilley on 07-23-2025 White blood cell count 0 SEEN /hpf 0-5 [facility] L/S Spine Min 4 Viewson 07- L/S Spine Min [address] [facility] [address] [place] [address] L/S Spine Min 4 Views MR#: [id number] Acct: [id number] Name: AUGUSTUS TARIQ Adam Rep #: [id number] : 1955 F 69 From: Angelique Ghotra PCP: Dr. Gaetano Tilley MD Status: REG CLI Study: L/S Spine Min 4 Views Date of Exam: 06/03/25 Exam# [id number] Ordering Dr: Mercedes Crow PROCEDURE: L/S SPINE [...] of the L5 vertebral body. Reading Location: [id number] CC: Mercedes Crow; Dr. Gaetano Tilley MD Court Recorder: Signed Normal [facility] Absolute lymphocyte countOrd ered By: Sara Matute on 05-24-2025 Lymphocytes Auto (Unsp spec) [#/Vol] 1.40 10*3/uL 0.83-4.51 [facility] Absolute neutrophil countOrd ered By: Sara Matute on 05-24-2025 Neutrophils (Bld) [#/Vol] 1.9 10*3/uL Low 2.0-7.7 [facility] Anion gap in Serum or Plasma Ordered By: Sara Matute on 05-24-2025 Anion gap [Moles/Vol] 11 mmol/L 5-15 [facility] Automated blood erythrocyte countOrdered By: Sara Matute on 05-24-2025 RBC (Bld) [#/Vol] 3.91 10*6/uL Low 4.2-5.4 [facility] Comment on above: Performed By: #### L 100.0100, L500.4050 #### [facility] [address] [place], [address] Automated blood hematocrit ( percentage)Ordered By: Sara Matute on 05-24-2025 Hematocrit (Bld) [Volume fraction] 38.9 % Normal 37-47 [facility] Comment on above: Performed By: #### L 100.0100, L500.4050 #### [facility] [address] [place], [address] Automated lymphocyte count a s percentage of total leukocytesOrdered By: Sara Matute on 05-24-2025 Lymphocytes/100 WBC Auto (Unsp spec) 36.5 % 19-41 [facility] BUN/creatinine ratioOrdered By: Sara Matute on 05-24-2025 Urea nitrogen/Creatinine [Mass ratio] 13.0 mg/mg 10-20 [facility] Basophil percentageOrdered B y: Sara Matute on 05-24-2025 Basophils/100 WBC (Bld) 1.0 % Normal 0-1 [facility] Comment on above: Performed By: #### L 100.0100, L500.4050 #### [facility] [address] [place], [address] Bilirubin, totalOrdered By: Sara Matute on 05-24-2025 Bilirubin [Mass/Vol] 0.37 mg/dL 0.00-1.30 [facility] CBC W/Diff, Automatedon 04-29 Absolute Lymph 1.40 X10 3/uL Normal 0.83-4.51 [facility] Comment on above: Performed By: #### L 100.0100, L500.4050 #### [facility] [address] [place], [address] Absolute Neut 1.9 X10 3/uL Low 2.0-7.7 [facility] Comment on above: Performed By: #### L 100.0100, L500.4050 #### [facility] [address] [place], [address] IG% 0.300 Normal 0.0-0.9 [facility] Comment on above: Result Comment: IG% - Immature Granulocytes (promyelocytes, myelocytes and metamyelocytes) > 1% indicates that a LEFT SHIFT is Present. Performed By: #### L 100.0100, L500.4050 #### [facility] [address] [place], [address] Lymphocytes/100 WBC (Bld) 36.5 % Normal 19-41 [facility] Comment on above: Performed By: #### L 100.0100, L500.4050 #### [facility] [address] [place], [address] Nucleated RBC (Bld) [#/Vol] 0 10*3/uL Normal 0-5 [facility] Comment on above: Performed By: #### L 100.0100, L500.4050 #### [facility] [address] [place], [address] RDW SD 50.4 fl High 35.1-43.9 [facility] Comment on above: Performed By: #### L 100.0100, L500.4050 #### [facility] [address] [place], [address] Carbon dioxide, total [Moles /volume] in Central venous bloodOrdered By: Sara Matute on 05-24-2025 CO2 [Moles/Vol] 23.0 mmol/L 21.0-32.0 [facility] Chloride assayOrdered By: Waqar Matute on 05-24-2025 Chloride [Moles/Vol] 107 mmol/L 98-108 [facility] Comprehensive Metabolic Prof ilon 05-24-2025 Albumin [Mass/Vol] 4.2 g/dL Normal 3.4-4.8 [facility] Comment on above: Performed By: #### L 100.0100, L500.4050 #### [facility] [address] [place], [address] Albumin/Globulin [Mass ratio] 1.8 {ratio} Normal 0.9-2.4 [facility] Comment on above: Performed By: #### L 100.0100, L500.4050 #### [facility] [address] [place], [address] ALK PHOS 54 U/L Normal 35-104 [facility] Comment on above: Performed By: #### L 100.0100, L500.4050 #### [facility] [address] [place], [address] ALT [Catalytic activity/Vol] 13 U/L Normal <=34 [facility] Comment on above: Performed By: #### L 100.0100, L500.4050 #### [facility] [address] [place], [address] AST [Catalytic activity/Vol] 22 U/L Normal <=31 [facility] Comment on above: Performed By: #### L 100.0100, L500.4050 #### [facility] [address] [place], [address] Bilirubin [Mass/Vol] 0.37 mg/dL Normal 0.00-1.30 [facility] Comment on above: Performed By: #### L 100.0100, L500.4050 #### [facility] [address] [place], [address] BUN/CRE 13.0 RATIO Normal 10-20 [facility] Comment on above: Performed By: #### L 100.0100, L500.4050 #### [facility] [address] [place], [address] Calcium [Mass/Vol] 9.2 mg/dL Normal 7.6-11.0 [facility] Comment on above: Performed By: #### L 100.0100, L500.4050 #### [facility] [address] [place], [address] Chloride [Moles/Vol] 107 mmol/L Normal 98-108 [facility] Comment on above: Performed By: #### L 100.0100, L500.4050 #### [facility] [address] [place], [address] CO2 [Moles/Vol] 23.0 mmol/L Normal 21.0-32.0 [facility] Comment on above: Performed By: #### L 100.0100, L500.4050 #### [facility] [address] [place], [address] Creatinine [Mass/Vol] 0.63 mg/dL Low 0.70-1.20 [facility] Comment on above: Performed By: #### L 100.0100, L500.4050 #### [facility] [address] [place], [address] GAP 11 Normal 5-15 [facility] Comment on above: Performed By: #### L 100.0100, L500.4050 #### [facility] [address] [place], [address] GFR/1.73 sq M.predicted among non-blacks MDRD (S/P/Bld) [Vol rate/Area] 97 mL/min/{1.73_m2} Normal >60 [facility] Comment on above: Result Comment: mL/m in/1.73m2 CKD-EPI Creatinine Equation (2020) Performed By: #### L 100.0100, L500.4050 #### [facility] [address] [place], [address] Globulin (S) [Mass/Vol] 2.3 g/dL Normal 2.2-4.2 [facility] Comment on above: Performed By: #### L 100.0100, L500.4050 #### [facility] [address] [place], [address] Glucose [Mass/Vol] 96 mg/dL Normal 70-99 [facility] Comment on above: Performed By: #### L 100.0100, L500.4050 #### [facility] [address] [place], [address] Potassium [Moles/Vol] 4.2 mmol/L Normal 3.3-5.1 [facility] Comment on above: Performed By: #### L 100.0100, L500.4050 #### [facility] [address] [place], [address] Sodium [Moles/Vol] 142 mmol/L Normal 133-145 [facility] Comment on above: Performed By: #### L 100.0100, L500.4050 #### [facility] [address] [place], [address] T PROT 6.5 g/dL Normal 5.9-8.4 [facility] Comment on above: Performed By: #### L 100.0100, L500.4050 #### [facility] [address] [place], [address] Urea nitrogen [Mass/Vol] 8 mg/dL Normal 4-19 [facility] Comment on above: Performed By: #### L 100.0100, L500.4050 #### [facility] [address] [place], [address] Eosinophil percentageOrdered By: Sara Matute on 05-24-2025 Eosinophils/100 WBC (Bld) 2.1 % Normal 0-5 [facility] Comment on above: Performed By: #### L 100.0100, L500.4050 #### [facility] [address] [place], [address] Erythrocyte distribution wid th ratioOrdered By: Sara Matute on 05-24-2025 Erythrocyte distribution width (RBC) [Ratio] 13.8 % Normal 11.6-14.6 [facility] Comment on above: Performed By: #### L 100.0100, L500.4050 #### [facility] [address] [place], [address] Erythrocyte distribution wid th standard deviationOrdered By: Sara Matute on 05-24-2025 Erythrocyte distribution width (RBC) [Ratio] 50.4 fl High 35.1-43.9 [facility] Glomerular filtration rate ( GFR) estimation/1.73 sq m using serum, plasma, or whole bOrdered By: Sara Matute on 05-24-2025 GFR/1.73 sq M.predicted among non-blacks MDRD (S/P/Bld) [Vol rate/Area] 97 mL/min/{1.73_m2} >60 [facility] Comment on above: mL/min/1.73m2 CKD-EP I Creatinine Equation (2020) Hemoglobin measurementOrdere d By: Sara Matute on 05-24-2025 Hemoglobin (Bld) [Mass/Vol] 12.6 g/dL Normal 12.0-15.0 [facility] Comment on above: Performed By: #### L 100.0100, L500.4050 #### [facility] [address] [place], [address] Immature granulocytes/100 WB C Auto (Bld)Ordered By: Sara Matute on 05-24-2025 Immature granulocytes/100 WBC (Bld) 0.300 % 0.0-0.9 [facility] Comment on above: IG% - Immature Granu locytes (promyelocytes, myelocytes and metamyelocytes) > 1% indicates that a LEFT SHIFT is Present. Laboratory - Chemistry and C hemistry - challengeOrdered By: Sara Matute on 05-24-2025 AST [Catalytic activity/Vol] 22 U/L <32 [facility] MCV (mean corpuscular volume ) determinationOrdered By: Sara Matute on 05-24-2025 MCV (RBC) [Entitic vol] 99.5 fL High 81-99 [facility] Comment on above: Performed By: #### L 100.0100, L500.4050 #### [facility] [address] [place], [address] Mean corpuscular hemoglobin (MCH) determinationOrdered By: Sara Matute on 05-24-2025 MCH (RBC) [Entitic mass] 32.2 pg High 27.0-32.0 [facility] Comment on above: Performed By: #### L 100.0100, L500.4050 #### [facility] [address] [place], [address] Mean corpuscular hemoglobin concentration (MCHC) determinationOrdered By: Sara Matute on 05-24-2025 MCHC (RBC) [Mass/Vol] 32.4 g/dL Normal 32-36 [facility] Comment on above: Performed By: #### L 100.0100, L500.4050 #### [facility] [address] [place], [address] Mean platelet volume determi nationOrdered By: Sara Matute on 05-24-2025 Platelet mean volume (Bld) [Entitic vol] 10.2 fL Normal 6.2-12.0 [facility] Comment on above: Performed By: #### L 100.0100, L500.4050 #### [facility] [address] [place], [address] Monocyte percentageOrdered B y: Sara Matute on 05-24-2025 Monocytes/100 WBC (Bld) 9.6 % Normal 0-10 [facility] Comment on above: Performed By: #### L 100.0100, L500.4050 #### [facility] [address] [place], [address] Neutrophil percentageOrdered By: Sara Matute on 05-24-2025 Neutrophils/100 WBC (Bld) 50.5 % Normal 47-70 [facility] Comment on above: Performed By: #### L 100.0100, L500.4050 #### [facility] [address] [place], [address] Nucleated red blood cell per centageOrdered By: Sara Matute on 05-24-2025 Nucleated RBC/100 WBC (Bld) [Ratio] 0 % 0-5 [facility] Platelet countOrdered By: Waqar Matute on 05-24-2025 Platelets (Bld) [#/Vol] 243 10*3/uL Normal 150-450 [facility] Comment on above: Performed By: #### L 100.0100, L500.4050 #### [facility] [address] [facility] [place], [address] Potassium measurement (mass/ volume)Ordered By: Sara Matute on 05-24-2025 Potassium (Unsp spec) [Mass/Vol] 4.2 mmol/L 3.3-5.1 [facility] Serum creatinine measurement (mass/volume)Ordered By: Sara Matute on 05-24-2025 Creatinine [Mass/Vol] 0.63 mg/dL Low 0.70-1.20 [facility] Serum globulin measurementOr dered By: Sara Matute on 05-24-2025 Globulin (S) [Mass/Vol] 2.3 g/dL 2.2-4.2 [facility] Serum glucose measurement (m ass/volume)Ordered By: Sara Matute on 05-24-2025 Glucose [Mass/Vol] 96 mg/dL 70-99 [facility] Serum or plasma alanine parkinson otransferase (ALT) measurementOrdered By: Sara Matute on 05-24-2025 ALT [Catalytic activity/Vol] 13 U/L <35 [facility] Serum or plasma albumin lamine urement (mass/volume)Ordered By: Sara Matute on 05-24-2025 Albumin [Mass/Vol] 4.2 g/dL 3.4-4.8 [facility] Serum or plasma albumin/glob ulin mass ratioOrdered By: Sara Matute on 05-24-2025 Albumin/Globulin [Mass ratio] 1.8 {ratio} 0.9-2.4 [facility] Serum or plasma alkaline heike sphatase measurementOrdered By: Sara Matute on 05-24-2025 ALP [Catalytic activity/Vol] 54 U/L 35-104 [facility] Serum or plasma calcium lamine urement (mass/volume)Ordered By: Sara Matute on 05-24-2025 Calcium [Mass/Vol] 9.2 mg/dL 7.6-11.0 [facility] Serum or plasma urea nitroge n measurement (mass/volume)Ordered By: Sara Matute on 05-24-2025 Urea nitrogen [Mass/Vol] 8 mg/dL 4-19 [facility] Sodium levelOrdered By: Mazin Matute on 05-24-2025 Sodium [Moles/Vol] 142 mmol/L 133-145 [facility] Total proteinOrdered By: Deuce Matute on 05-24-2025 Protein [Mass/Vol] 6.5 g/dL 5.9-8.4 [facility] White blood cell (WBC) count Ordered By: Sara Matute on 05-24-2025 WBC (Bld) [#/Vol] 3.8 10*3/uL Low 4.4-11.0 [facility] Comment on above: Performed By: #### L 100.0100, L500.4050 #### [facility] [address] [place] [address], [address] Absolute lymphocyte countOrd ered By: Sara Matute on 02-26-2025 Lymphocytes Auto (Unsp spec) [#/Vol] 2.02 10*3/uL 0.83-4.51 [facility] Absolute neutrophil countOrd ered By: Sara Matute on 02-26-2025 Neutrophils (Bld) [#/Vol] 4.3 10*3/uL 2.0-7.7 [facility] Anion gap in Serum or Plasma Ordered By: Sara Matute on 02-26-2025 Anion gap [Moles/Vol] 12 mmol/L 5-15 [facility] Automated lymphocyte count a s percentage of total leukocytesOrdered By: Sara Matute on 02-26-2025 Lymphocytes/100 WBC Auto (Unsp spec) 28.0 % - [facility] BUN/creatinine ratioOrdered By: Sarajason Matute on 02-26-2025 Urea nitrogen/Creatinine [Mass ratio] 14.8 mg/mg 10- [facility] Basophil percentageOrdered B y: Sara Matute on 02-26-2025 Basophils/100 WBC (Bld) 0.8 % 0-1 [facility] Bilirubin, totalOrdered By: Sara Matute on 02-26-2025 Bilirubin [Mass/Vol] 0.29 mg/dL 0.00-1.30 [facility] CBC W/Diff, Automatedon Absolute Lymph 2.02 X10 3/uL Normal 0.83-4.51 [facility] Comment on above: Performed By: #### L 500.4050, L100.0100 #### [facility] [address] [place], [address] Absolute Neut 4.3 X10 3/uL Normal 2.0-7.7 [facility] Comment on above: Performed By: #### L 500.4050, L100.0100 #### [facility] [address] [place], [address] Basophils/100 WBC (Bld) 0.8 % Normal 0-1 [facility] Comment on above: Performed By: #### L 500.4050, L100.0100 #### [facility] [address] [place], [address] Eosinophils/100 WBC (Bld) 6.1 % High 0-5 [facility] Comment on above: Performed By: #### L 500.4050, L100.0100 #### [facility] [address] [place], [address] Erythrocyte distribution width (RBC) [Ratio] 13.3 % Normal 11.6-14.6 [facility] Comment on above: Performed By: #### L 500.4050, L100.0100 #### [facility] [address] [place], [address] Hematocrit (Bld) [Volume fraction] 40.7 % Normal 37-47 [facility] Comment on above: Performed By: #### L 500.4050, L100.0100 #### [facility] [address] [place], [address] Hemoglobin (Bld) [Mass/Vol] 13.4 g/dL Normal 12.0-15.0 [facility] Comment on above: Performed By: #### L 500.4050, L100.0100 #### [facility] [address] [place], [address] IG% 0.100 Normal 0.0-0.9 [facility] Comment on above: Result Comment: IG% - Immature Granulocytes (promyelocytes, myelocytes and metamyelocytes) > 1% indicates that a LEFT SHIFT is Present. Performed By: #### L 500.4050, L100.0100 #### [facility] [address] [place], [address] Lymphocytes/100 WBC (Bld) 28.0 % Normal 19-41 [facility] Comment on above: Performed By: #### L 500.4050, L100.0100 #### [facility] [address] [place], [address] MCH (RBC) [Entitic mass] 33.0 pg High 27.0-32.0 [facility] Comment on above: Performed By: #### L 500.4050, L100.0100 #### [facility] [address] [place], [address] MCHC (RBC) [Mass/Vol] 32.9 g/dL Normal 32-36 [facility] Comment on above: Performed By: #### L 500.4050, L100.0100 #### [facility] [address] [place], [address] MCV (RBC) [Entitic vol] 100.2 fL High 81-99 [facility] Comment on above: Performed By: #### L 500.4050, L100.0100 #### [facility] [address] [place], [address] Monocytes/100 WBC (Bld) 6.0 % Normal 0-10 [facility] Comment on above: Performed By: #### L 500.4050, L100.0100 #### [facility] [address] [place], [address] Neutrophils/100 WBC (Bld) 59.0 % Normal 47-70 [facility] Comment on above: Performed By: #### L 500.4050, L100.0100 #### [facility] [address] [place], [address] Nucleated RBC (Bld) [#/Vol] 0 10*3/uL Normal 0-5 [facility] Comment on above: Performed By: #### L 500.4050, L100.0100 #### [facility] [address] [place], [address] Platelet mean volume (Bld) [Entitic vol] 10.3 fL Normal 6.2-12.0 [facility] Comment on above: Performed By: #### L 500.4050, L100.0100 #### [facility] [address] [place], [address] Platelets (Bld) [#/Vol] 246 10*3/uL Normal 150-450 [facility] Comment on above: Performed By: #### L 500.4050, L100.0100 #### [facility] [address] [place], [address] RBC (Bld) [#/Vol] 4.06 10*6/uL Low 4.2-5.4 [facility] Comment on above: Performed By: #### L 500.4050, L100.0100 #### [facility] [address] [place], [address] RDW SD 49.1 fl High 35.1-43.9 [facility] Comment on above: Performed By: #### L 500.4050, L100.0100 #### [facility] [address] [place], [address] WBC (Bld) [#/Vol] 7.2 10*3/uL Normal 4.4-11.0 [facility] Comment on above: Performed By: #### L 500.4050, L100.0100 #### [facility] [address] [place], [address] Carbon dioxide, total [Moles /volume] in Central venous bloodOrdered By: Sara Matute on 02-26-2025 CO2 [Moles/Vol] 24.8 mmol/L 21.0-32.0 [facility] Chloride assayOrdered By: Waqar Matute on 02-26-2025 Chloride [Moles/Vol] 103 mmol/L 98-108 [facility] Comprehensive Metabolic Prof ilon 02-26-2025 Albumin [Mass/Vol] 4.2 g/dL Normal 3.4-4.8 [facility] Comment on above: Performed By: #### L 500.4050, L100.0100 #### [facility] [address] [place], [address] Albumin/Globulin [Mass ratio] 1.7 {ratio} Normal 0.9-2.4 [facility] Comment on above: Performed By: #### L 500.4050, L100.0100 #### [facility] [address] [place], [address] ALK PHOS 56 U/L Normal 35-104 [facility] Comment on above: Performed By: #### L 500.4050, L100.0100 #### [facility] [address] [place], [address] ALT [Catalytic activity/Vol] 11 U/L Normal <=34 [facility] Comment on above: Performed By: #### L 500.4050, L100.0100 #### [facility] [address] [place], [address] AST [Catalytic activity/Vol] 19 U/L Normal <=31 [facility] Comment on above: Performed By: #### L 500.4050, L100.0100 #### [facility] [address] [place], [address] Bilirubin [Mass/Vol] 0.29 mg/dL Normal 0.00-1.30 [facility] Comment on above: Performed By: #### L 500.4050, L100.0100 #### [facility] [address] [place], [address] BUN/CRE 14.8 RATIO Normal 10-20 [facility] Comment on above: Performed By: #### L 500.4050, L100.0100 #### [facility] [address] [place], [address] Calcium [Mass/Vol] 9.9 mg/dL Normal 7.6-11.0 [facility] Comment on above: Performed By: #### L 500.4050, L100.0100 #### [facility] [address] [place], [address] Chloride [Moles/Vol] 103 mmol/L Normal 98-108 [facility] Comment on above: Performed By: #### L 500.4050, L100.0100 #### [facility] [address] [place], [address] CO2 [Moles/Vol] 24.8 mmol/L Normal 21.0-32.0 [facility] Comment on above: Performed By: #### L 500.4050, L100.0100 #### [facility] [address] [place], [address] Creatinine [Mass/Vol] 0.70 mg/dL Normal 0.70-1.20 [facility] Comment on above: Performed By: #### L 500.4050, L100.0100 #### [facility] [address] [place], [address] GAP 12 Normal 5-15 [facility] Comment on above: Performed By: #### L 500.4050, L100.0100 #### [facility] [address] [place], [address] GFR/1.73 sq M.predicted among non-blacks MDRD (S/P/Bld) [Vol rate/Area] 95 mL/min/{1.73_m2} Normal >60 [facility] Comment on above: Result Comment: mL/m in/1.73m2 CKD-EPI Creatinine Equation (2020) Performed By: #### L 500.4050, L100.0100 #### [facility] [address] [place], [address] Globulin (S) [Mass/Vol] 2.5 g/dL Normal 2.2-4.2 [facility] Comment on above: Performed By: #### L 500.4050, L100.0100 #### [facility] [address] [place], [address] Glucose [Mass/Vol] 94 mg/dL Normal 70-99 [facility] Comment on above: Performed By: #### L 500.4050, L100.0100 #### [facility] [address] [place], [address] Potassium [Moles/Vol] 4.0 mmol/L Normal 3.3-5.1 [facility] Comment on above: Performed By: #### L 500.4050, L100.0100 #### [facility] [address] [place], [address] Sodium [Moles/Vol] 140 mmol/L Normal 133-145 [facility] Comment on above: Performed By: #### L 500.4050, L100.0100 #### [facility] [address] [place], [address] T PROT 6.8 g/dL Normal 5.9-8.4 [facility] Comment on above: Performed By: #### L 500.4050, L100.0100 #### [facility] [address] [place], [address] Urea nitrogen [Mass/Vol] 10 mg/dL Normal 4-19 [facility] Comment on above: Performed By: #### L 500.4050, L100.0100 #### [facility] [address] [place], [address] Eosinophil percentageOrdered By: Sara Matute on 02-26-2025 Eosinophils/100 WBC (Bld) 6.1 % High 0-5 [facility] Erythrocyte distribution wid th (RBC) [Ratio]Ordered By: Sara Matute on 02-26-2025 Erythrocyte distribution width (RBC) [Entitic vol] 49.1 fL High 35.1-43.9 [facility] Erythrocyte distribution wid th ratioOrdered By: Sara Matute on 02-26-2025 Erythrocyte distribution width (RBC) [Ratio] 13.3 % 11.6-14.6 [facility] Erythrocyte distribution wid th standard deviationOrdered By: Sara Matute on 02-26-2025 Erythrocyte distribution width (RBC) [Ratio] 49.1 fl High 35.1-43.9 [facility] GFR/1.73 sq M.predicted mckinley g non-blacks MDRD (S/P/Bld) [Vol rate/Area]Ordered By: Sara Matute on 02-26-2025 Estimated GFR (MDRD) Non-Af Amer 95 >60 [facility] Comment on above: mL/min/1.73m2 CKD-EP I Creatinine Equation (2020) Glomerular filtration rate ( GFR) estimation/1.73 sq m using serum, plasma, or whole bOrdered By: Sara Matute on 02-26-2025 GFR/1.73 sq M.predicted among non-blacks MDRD (S/P/Bld) [Vol rate/Area] 95 mL/min/{1.73_m2} >60 [facility] Comment on above: mL/min/1.73m2 CKD-EP I Creatinine Equation (2020) Hematocrit Auto (Bld) [Volum e fraction]Ordered By: Sara Matute on 02-26-2025 Hematocrit (Bld) [Volume fraction] 40.7 % 37-47 [facility] Hemoglobin measurementOrdere d By: Sara Matute on 02-26-2025 Hemoglobin (Bld) [Mass/Vol] 13.4 g/dL 12.0-15.0 [facility] Immature granulocytes/100 WB C Auto (Bld)Ordered By: Sara Matute on 02-26-2025 Immature granulocytes/100 WBC (Bld) 0.100 % 0.0-0.9 [facility] Comment on above: IG% - Immature Granu locytes (promyelocytes, myelocytes and metamyelocytes) > 1% indicates that a LEFT SHIFT is Present. Laboratory - Chemistry and C hemistry - challengeOrdered By: Sara Matute on 02-26-2025 AST [Catalytic activity/Vol] 19 U/L <32 [facility] Lymphocytes Auto (Unsp spec) [#/Vol]Ordered By: Sara Matute on 02-26-2025 Lymphocytes (Bld) [#/Vol] 2.02 10*3/uL 0.83-4.51 [facility] Lymphocytes/100 WBC Auto (Un sp spec)Ordered By: Sara Matute on 02-26-2025 Lymphocytes/100 WBC (Bld) 28.0 % 19-41 [facility] MCV (mean corpuscular volume ) determinationOrdered By: Sara Matute on 02-26-2025 MCV (RBC) [Entitic vol] 100.2 fL High 81-99 [facility] Mean corpuscular hemoglobin (MCH) determinationOrdered By: Sara Matute on 02-26-2025 MCH (RBC) [Entitic mass] 33.0 pg High 27.0-32.0 [facility] Mean corpuscular hemoglobin concentration (MCHC) determinationOrdered By: Sara Matute on 02-26-2025 MCHC (RBC) [Mass/Vol] 32.9 g/dL 32-36 [facility] Mean platelet volume determi nationOrdered By: Sara Matute on 02-26-2025 Platelet mean volume (Bld) [Entitic vol] 10.3 fL 6.2-12.0 [facility] Monocyte percentageOrdered B y: Sara Matute on 02-26-2025 Monocytes/100 WBC (Bld) 6.0 % 0-10 [facility] Neutrophil percentageOrdered By: Sara Matute on 02-26-2025 Neutrophils/100 WBC (Bld) 59.0 % 47-70 [facility] Nucleated red blood cell per centageOrdered By: Sara Matute on 02-26-2025 Nucleated RBC/100 WBC (Bld) [Ratio] 0 % 0-5 [facility] Platelet countOrdered By: Waqar Matute on 02-26-2025 Platelets (Bld) [#/Vol] 246 10*3/uL 150-450 [facility] Potassium (Unsp spec) [Mass/ Vol]Ordered By: Sara Matute on 02-26-2025 Potassium [Moles/Vol] 4.0 mmol/L 3.3-5.1 [facility] Potassium measurement (mass/ volume)Ordered By: Sara Matute on 02-26-2025 Potassium (Unsp spec) [Mass/Vol] 4.0 mmol/L 3.3-5.1 [facility] RBC Auto (Bld) [#/Vol]Ordere d By: Sara Matute on 02-26-2025 RBC (Bld) [#/Vol] 4.06 10*6/uL Low 4.2-5.4 [facility] Serum creatinine measurement (mass/volume)Ordered By: Saar Matute on 02-26-2025 Creatinine [Mass/Vol] 0.70 mg/dL 0.70-1.20 [facility] Serum globulin measurementOr dered By: Sara Matute on 02-26-2025 Globulin (S) [Mass/Vol] 2.5 g/dL 2.2-4.2 [facility] Serum glucose measurement (m ass/volume)Ordered By: Sara Matute on 02-26-2025 Glucose [Mass/Vol] 94 mg/dL 70-99 [facility] Serum or plasma alanine parkinson otransferase (ALT) measurementOrdered By: Sara Matute on 02-26-2025 ALT [Catalytic activity/Vol] 11 U/L <35 [facility] Serum or plasma albumin lamine urement (mass/volume)Ordered By: Sara Matute on 02-26-2025 Albumin [Mass/Vol] 4.2 g/dL 3.4-4.8 [facility] Serum or plasma albumin/glob ulin mass ratioOrdered By: Sara Matute on 02-26-2025 Albumin/Globulin [Mass ratio] 1.7 {ratio} 0.9-2.4 [facility] Serum or plasma alkaline heike sphatase measurementOrdered By: Sara Matute on 02-26-2025 ALP [Catalytic activity/Vol] 56 U/L 35-104 [facility] Serum or plasma calcium lamine urement (mass/volume)Ordered By: Sara Matute on 02-26-2025 Calcium [Mass/Vol] 9.9 mg/dL 7.6-11.0 [facility] Serum or plasma urea nitroge n measurement (mass/volume)Ordered By: Sara Matute on 02-26-2025 Urea nitrogen [Mass/Vol] 10 mg/dL 4-19 [facility] Sodium levelOrdered By: Mazin Matute on 02-26-2025 Sodium [Moles/Vol] 140 mmol/L 133-145 [facility] Total proteinOrdered By: Deuce Matute on 02-26-2025 Protein [Mass/Vol] 6.8 g/dL 5.9-8.4 [facility] White blood cell (WBC) count Ordered By: Sara Matute on 02-26-2025 WBC (Bld) [#/Vol] 7.2 10*3/uL 4.4-11.0 [facility] Anion gap in Serum or Plasma Ordered By: Gaetano Tilley on 01-30-2025 Anion gap [Moles/Vol] 10 mmol/L 5- [facility] BUN/creatinine ratioOrdered By: Gaetano Tilley on 01-30-2025 Urea nitrogen/Creatinine [Mass ratio] 18.0 mg/mg 10- [facility] Basic Metabolic Profile (BMP )on 01-30-2025 BUN/CRE 18.0 RATIO Normal - [facility] Comment on above: Order Comment: Inter face Comments:reduced GFROrder Date: 01/24/25Order Info: 0667-1 - BMPreduced GFR Performed By: #### L 500.4050, L100.0100 #### [facility] [address] [place], [address] Calcium [Mass/Vol] 9.3 mg/dL Normal 7.6-11.0 [facility] Comment on above: Order Comment: Inter face Comments:reduced GFROrder Date: 01/24/25Order Info: 0667-1 - BMPreduced GFR Performed By: #### L 500.4050, L100.0100 #### [facility] [address] [place], [address] Chloride [Moles/Vol] 105 mmol/L Normal 98-108 [facility] Comment on above: Order Comment: Inter face Comments:reduced GFROrder Date: 01/24/25Order Info: 666- - BMPreduced GFR Performed By: #### L 500.4050, L100.0100 #### [facility] [address] [place], [address] CO2 [Moles/Vol] 25.6 mmol/L Normal 21.0-32.0 [facility] Comment on above: Order Comment: Inter face Comments:reduced GFROrder Date: 01/24/25Order Info: 666- - BMPreduced GFR Performed By: #### L 500.4050, L100.0100 #### [facility] [address] [place], [address] Creatinine [Mass/Vol] 0.69 mg/dL Low 0.70-1.20 [facility] Comment on above: Order Comment: Inter face Comments:reduced GFROrder Date: 01/24/25Order Info: 666-11 - BMPreduced GFR Performed By: #### L 500.4050, L100.0100 #### [facility] [address] [place], [address] GAP 10 Normal 5-15 [facility] Comment on above: Order Comment: Inter face Comments:reduced GFROrder Date: 01/24/25Order Info: 666-11 - BMPreduced GFR Performed By: #### L 500.4050, L100.0100 #### [facility] [address] [place], [address] GFR/1.73 sq M.predicted among non-blacks MDRD (S/P/Bld) [Vol rate/Area] 95 mL/min/{1.73_m2} Normal >60 [facility] Comment on above: Order Comment: Inter face Comments:reduced GFROrder Date: 01/24/25Order Info: 666- - BMPreduced GFR Result Comment: mL/m in/1.73m2 CKD-EPI Creatinine Equation (2020) Performed By: #### L 500.4050, L100.0100 #### [facility] [address] [place], [address] Glucose [Mass/Vol] 88 mg/dL Normal 70-99 [facility] Comment on above: Order Comment: Inter face Comments:reduced GFROrder Date: 01/24/25Order Info: 666- - BMPreduced GFR Performed By: #### L 500.4050, L100.0100 #### [facility] [address] [place], [address] Potassium [Moles/Vol] 4.2 mmol/L Normal 3.3-5.1 [facility] Comment on above: Order Comment: Inter face Comments:reduced GFROrder Date: 01/24/25Order Info: 666- - BMPreduced GFR Performed By: #### L 500.4050, L100.0100 #### [facility] [address] [place], [address] Sodium [Moles/Vol] 141 mmol/L Normal 133-145 [facility] Comment on above: Order Comment: Inter face Comments:reduced GFROrder Date: 01/24/25Order Info: 666- - BMPreduced GFR Performed By: #### L 500.4050, L100.0100 #### [facility] [address] [place], [address] Urea nitrogen [Mass/Vol] 12 mg/dL Normal 4-19 [facility] Comment on above: Order Comment: Inter face Comments:reduced GFROrder Date: 01/24/25Order Info: 666- - BMPreduced GFR Performed By: #### L 500.4050, L100.0100 #### [facility] [address] [place], [address] Carbon dioxide, total [Moles /volume] in Central venous bloodOrdered By: Gaetano Tilley on 01-30-2025 CO2 [Moles/Vol] 25.6 mmol/L 21.0-32.0 [facility] Chloride assayOrdered By: Ting Tilley on 01-30-2025 Chloride [Moles/Vol] 105 mmol/L 98-108 [facility] GFR/1.73 sq M.predicted mckinley g non-blacks MDRD (S/P/Bld) [Vol rate/Area]Ordered By: Gaetano Tilley on 01-30-2025 Estimated GFR (MDRD) Non-Af Amer 95 >60 [facility] Comment on above: mL/min/1.73m2 CKD-EP I Creatinine Equation (2020) Glomerular filtration rate ( GFR) estimation/1.73 sq m using serum, plasma, or whole bOrdered By: Gaetano Tilley on 01-30-2025 GFR/1.73 sq M.predicted among non-blacks MDRD (S/P/Bld) [Vol rate/Area] 95 mL/min/{1.73_m2} >60 [facility] Comment on above: mL/min/1.73m2 CKD-EP I Creatinine Equation (2020) Potassium (Unsp spec) [Mass/ Vol]Ordered By: Gaetano Tilley on 01-30-2025 Potassium [Moles/Vol] 4.2 mmol/L 3.3-5.1 [facility] Potassium measurement (mass/ volume)Ordered By: Gaetano Tilley on 01-30-2025 Potassium (Unsp spec) [Mass/Vol] 4.2 mmol/L 3.3-5.1 [facility] Serum creatinine measurement (mass/volume)Ordered By: Gaetano Tilley on 01-30-2025 Creatinine [Mass/Vol] 0.69 mg/dL Low 0.70-1.20 [facility] Serum glucose measurement (m ass/volume)Ordered By: Gaetano Tilley on 01-30-2025 Glucose [Mass/Vol] 88 mg/dL 70-99 [facility] Serum or plasma calcium lamine urement (mass/volume)Ordered By: Gaetano Tilley on 01-30-2025 Calcium [Mass/Vol] 9.3 mg/dL 7.6-11.0 [facility] Serum or plasma urea nitroge n measurement (mass/volume)Ordered By: Gaetano Tilley on 01-30-2025 Urea nitrogen [Mass/Vol] 12 mg/dL 4-19 [facility] Sodium levelOrdered By: Gaetano Tilley on 01-30-2025 Sodium [Moles/Vol] 141 mmol/L 133-145 [facility] Absolute neutrophil countOrd ered By: Gaetano Tilley on 01-22-2025 Neutrophils (Bld) [#/Vol] 2.5 10*3/uL 2.0-7.7 [facility] BUN/creatinine ratioOrdered By: Gaetano Tilley on 01-22-2025 Urea nitrogen/Creatinine [Mass ratio] 19.1 mg/mg 10-20 [facility] Basophil percentageOrdered B y: Gaetano Tilley on 01-22-2025 Basophils/100 WBC (Bld) 0.6 % 0-1 [facility] Bilirubin Test strip Ql (U)O rdered By: Gaetano Tilley on 01-22-2025 Bilirubin Ql (U) Negative Negative [facility] Bilirubin, totalOrdered By: Gaetano Tilley on 01-22-2025 Bilirubin [Mass/Vol] 0.47 mg/dL 0.00-1.30 [facility] CBC W/Diff, Automatedon 12-30 Absolute Lymph 1.65 X10 3/uL Normal 0.83-4.51 [facility] Comment on above: Performed By: #### L 500.4100, L400.0001, L100.0100, L500.4050 #### [facility] [address] [place], [address] Absolute Neut 2.5 X10 3/uL Normal 2.0-7.7 [facility] Comment on above: Performed By: #### L 500.4100, L400.0001, L100.0100, L500.4050 #### [facility] [address] [place], [address] Basophils/100 WBC (Bld) 0.6 % Normal 0-1 [facility] Comment on above: Performed By: #### L 500.4100, L400.0001, L100.0100, L500.4050 #### [facility] [address] [place], [address] Eosinophils/100 WBC (Bld) 2.6 % Normal 0-5 [facility] Comment on above: Performed By: #### L 500.4100, L400.0001, L100.0100, L500.4050 #### [facility] [address] [place], [address] Erythrocyte distribution width (RBC) [Ratio] 13.5 % Normal 11.6-14.6 [facility] Comment on above: Performed By: #### L 500.4100, L400.0001, L100.0100, L500.4050 #### [facility] [address] [place], [address] Hematocrit (Bld) [Volume fraction] 40.9 % Normal 37-47 [facility] Comment on above: Performed By: #### L 500.4100, L400.0001, L100.0100, L500.4050 #### [facility] [address] [place], [address] Hemoglobin (Bld) [Mass/Vol] 13.1 g/dL Normal 12.0-15.0 [facility] Comment on above: Performed By: #### L 500.4100, L400.0001, L100.0100, L500.4050 #### [facility] [address] [place], [address] IG% 0.400 Normal 0.0-0.9 [facility] Comment on above: Result Comment: IG% - Immature Granulocytes (promyelocytes, myelocytes and metamyelocytes) > 1% indicates that a LEFT SHIFT is Present. Performed By: #### L 500.4100, L400.0001, L100.0100, L500.4050 #### [facility] [address] [place], [address] Lymphocytes/100 WBC (Bld) 35.1 % Normal 19-41 [facility] Comment on above: Performed By: #### L 500.4100, L400.0001, L100.0100, L500.4050 #### [facility] [address] [place], [address] MCH (RBC) [Entitic mass] 32.7 pg High 27.0-32.0 [facility] Comment on above: Performed By: #### L 500.4100, L400.0001, L100.0100, L500.4050 #### [facility] [address] [place], [address] MCHC (RBC) [Mass/Vol] 32.0 g/dL Normal 32-36 [facility] Comment on above: Performed By: #### L 500.4100, L400.0001, L100.0100, L500.4050 #### [facility] [address] [place], [address] MCV (RBC) [Entitic vol] 102.0 fL High 81-99 [facility] Comment on above: Performed By: #### L 500.4100, L400.0001, L100.0100, L500.4050 #### [facility] [address] [place], [address] Monocytes/100 WBC (Bld) 8.3 % Normal 0-10 [facility] Comment on above: Performed By: #### L 500.4100, L400.0001, L100.0100, L500.4050 #### [facility] [address] [place], [address] Neutrophils/100 WBC (Bld) 53.0 % Normal 47-70 [facility] Comment on above: Performed By: #### L 500.4100, L400.0001, L100.0100, L500.4050 #### [facility] [address] [place], [address] Nucleated RBC (Bld) [#/Vol] 0 10*3/uL Normal 0-5 [facility] Comment on above: Performed By: #### L 500.4100, L400.0001, L100.0100, L500.4050 #### [facility] [address] [place], [address] Platelet mean volume (Bld) [Entitic vol] 10.0 fL Normal 6.2-12.0 [facility] Comment on above: Performed By: #### L 500.4100, L400.0001, L100.0100, L500.4050 #### [facility] [address] [place], [address] Platelets (Bld) [#/Vol] 254 10*3/uL Normal 150-450 [facility] Comment on above: Performed By: #### L 500.4100, L400.0001, L100.0100, L500.4050 #### [facility] [address] [place], [address] RBC (Bld) [#/Vol] 4.01 10*6/uL Low 4.2-5.4 [facility] Comment on above: Performed By: #### L 500.4100, L400.0001, L100.0100, L500.4050 #### [facility] [address] [place], [address] RDW SD 50.6 fl High 35.1-43.9 [facility] Comment on above: Performed By: #### L 500.4100, L400.0001, L100.0100, L500.4050 #### [facility] [address] [place], [address] WBC (Bld) [#/Vol] 4.7 10*3/uL Normal 4.4-11.0 [facility] Comment on above: Performed By: #### L 500.4100, L400.0001, L100.0100, L500.4050 #### [facility] [address] [place], [address] Cholesterol in VLDL [Mass/Vo l]Ordered By: Gaetano Tilley on 01-22-2025 VLDL Cholesterol 19 mg/dL 5-40 [facility] Comprehensive Metabolic Prof ilon 01-22-2025 Albumin [Mass/Vol] 4.1 g/dL Normal 3.4-4.8 [facility] Comment on above: Performed By: #### L 500.4050, L100.0100 #### [facility] [address] [place], [address] Albumin/Globulin [Mass ratio] 1.4 {ratio} Normal 0.9-2.4 [facility] Comment on above: Performed By: #### L 500.4050, L100.0100 #### [facility] [address] [place], [address] ALK PHOS 92 U/L Normal 35-104 [facility] Comment on above: Performed By: #### L 500.4050, L100.0100 #### [facility] [address] [place], [address] ALT [Catalytic activity/Vol] 22 U/L Normal <=34 [facility] Comment on above: Performed By: #### L 500.4050, L100.0100 #### [facility] [address] [place], [address] Anion gap [Moles/Vol] 10 mmol/L Normal 5-15 [facility] Comment on above: Performed By: #### L 500.4050, L100.0100 #### [facility] [address] [place], [address] AST [Catalytic activity/Vol] 25 U/L Normal <=31 [facility] Comment on above: Performed By: #### L 500.4050, L100.0100 #### [facility] [address] [place], [address] Bilirubin [Mass/Vol] 0.47 mg/dL Normal 0.00-1.30 [facility] Comment on above: Performed By: #### L 500.4050, L100.0100 #### [facility] [address] [place], [address] BUN/CRE 19.1 RATIO Normal 10-20 [facility] Comment on above: Performed By: #### L 500.4050, L100.0100 #### [facility] [address] [place], [address] Calcium [Mass/Vol] 9.4 mg/dL Normal 7.6-11.0 [facility] Comment on above: Performed By: #### L 500.4050, L100.0100 #### [facility] [address] [place], [address] Chloride [Moles/Vol] 110 mmol/L High 96-108 [facility] [facility] Comment on above: Performed By: #### L 500.4050, L100.0100 #### [facility] [address] [place], [address] CO2 [Moles/Vol] 20.7 mmol/L Low 22.0-29.0 [facility] Comment on above: Performed By: #### L 500.4050, L100.0100 #### [facility] [address] [place], [address] Creatinine [Mass/Vol] 1.2 mg/dL High 0.6-1.0 [facility] Comment on above: Performed By: #### L 500.4050, L100.0100 #### [facility] [address] [place], [address] GFR/1.73 sq M.predicted among non-blacks MDRD (S/P/Bld) [Vol rate/Area] 52 mL/min/{1.73_m2} Low >60 [facility] Comment on above: Result Comment: mL/m in/1.73m2 CKD-EPI Creatinine Equation (2020) Performed By: #### L 500.4050, L100.0100 #### [facility] [address] [place], [address] Globulin (S) [Mass/Vol] 2.9 g/dL Normal 2.2-4.2 [facility] Comment on above: Performed By: #### L 500.4050, L100.0100 #### [facility] [address] [place], [address] Glucose [Mass/Vol] 74 mg/dL Normal 70-99 [facility] Comment on above: Performed By: #### L 500.4050, L100.0100 #### [facility] [address] [place], [address] Potassium [Moles/Vol] 4.3 mmol/L Normal 3.3-5.1 [facility] Comment on above: Performed By: #### L 500.4050, L100.0100 #### [facility] [address] [place], [address] Sodium [Moles/Vol] 141 mmol/L Normal 133-145 [facility] Comment on above: Performed By: #### L 500.4050, L100.0100 #### [facility] [address] [place], [address] T PROT 7.0 g/dL Normal 5.9-8.4 [facility] Comment on above: Performed By: #### L 500.4050, L100.0100 #### [facility] [address] [place], [address] Urea nitrogen [Mass/Vol] 22 mg/dL High 4-19 [facility] Comment on above: Performed By: #### L 500.4050, L100.0100 #### [facility] [address] [place], [address] ALB Normal 3.2-5.0 [facility] Comment on above: Result Comment: REOR DERED Performed By: #### L 500.4100, L400.0001, L100.0100, L500.4050 #### [facility] [address] [place], [address] ALK PHOS Normal 45-117 [facility] Comment on above: Result Comment: REOR DERED Performed By: #### L 500.4100, L400.0001, L100.0100, L500.4050 #### [facility] [address] [place], [address] ALT Normal 13-56 [facility] Comment on above: Result Comment: REOR DERED Performed By: #### L 500.4100, L400.0001, L100.0100, L500.4050 #### [facility] [address] [place], [address] AST Normal 15-37 [facility] Comment on above: Result Comment: REOR DERED Performed By: #### L 500.4100, L400.0001, L100.0100, L500.4050 #### [facility] [address] [place], [address] BUN Normal 4-19 [facility] Comment on above: Result Comment: REOR DERED Performed By: #### L 500.4100, L400.0001, L100.0100, L500.4050 #### [facility] [address] [place], [address] BUN/CRE Normal 10-20 [facility] Comment on above: Result Comment: REOR DERED Performed By: #### L 500.4100, L400.0001, L100.0100, L500.4050 #### [facility] [address] [place], [address] Calcium Normal 8.5-10.1 [facility] Comment on above: Result Comment: REOR DERED Performed By: #### L 500.4100, L400.0001, L100.0100, L500.4050 #### [facility] [address] [place], [address] CL Normal 98-107 [facility] Comment on above: Result Comment: REOR DERED Performed By: #### L 500.4100, L400.0001, L100.0100, L500.4050 #### [facility] [address] [place], [address] CO2 Normal 21.0-32.0 [facility] Comment on above: Result Comment: REOR DERED Performed By: #### L 500.4100, L400.0001, L100.0100, L500.4050 #### [facility] [address] [place], [address] CREAT,SERUM Normal 0.6-1.0 [facility] Comment on above: Result Comment: REOR DERED Performed By: #### L 500.4100, L400.0001, L100.0100, L500.4050 #### [facility] [address] [place], [address] eGFR Normal >60 [facility] Comment on above: Result Comment: REOR DERED Performed By: #### L 500.4100, L400.0001, L100.0100, L500.4050 #### [facility] [address] [place], [address] GAP Normal 5-15 [facility] Comment on above: Result Comment: REOR DERED Performed By: #### L 500.4100, L400.0001, L100.0100, L500.4050 #### [facility] [address] [place], [address] GLU Normal 70-99 [facility] Comment on above: Result Comment: REOR DERED Performed By: #### L 500.4100, L400.0001, L100.0100, L500.4050 #### [facility] [address] [place], [address] Potassium Normal 3.5-5.1 [facility] Comment on above: Result Comment: REOR DERED Performed By: #### L 500.4100, L400.0001, L100.0100, L500.4050 #### [facility] [address] [place], [address] T BILI Normal 0.20-1.00 [facility] Comment on above: Result Comment: REOR DERED Performed By: #### L 500.4100, L400.0001, L100.0100, L500.4050 #### [facility] [address] [place], [address] T PROT Normal 6.4-8.2 [facility] Comment on above: Result Comment: REOR DERED Performed By: #### L 500.4100, L400.0001, L100.0100, L500.4050 #### [facility] [address] [place], [address] Comprehensive Metabolic Profil Normal 136-145 [facility] Comment on above: Result Comment: REOR DERED Performed By: #### L 500.4100, L400.0001, L100.0100, L500.4050 #### [facility] [address] [place], [address] Creatinine [Moles/Vol]Ordere d By: Gaetano Tilley on 01-22-2025 Creatinine [Mass/Vol] 1.2 mg/dL High 0.6-1.0 [facility] Eosinophil percentageOrdered By: Gaetano Tilley on 01-22-2025 Eosinophils/100 WBC (Bld) 2.6 % 0-5 [facility] Epithelial cells.squamous LM Ql (Urine sed)Ordered By: Gaetano Tilley on 01-22-2025 Epithelial cells.squamous LM.HPF (Urine sed) [#/Area] 0 /[HPF] 5-10 [facility] Erythrocyte distribution wid th ratioOrdered By: Gaetano Tilley on 01-22-2025 Erythrocyte distribution width (RBC) [Ratio] 13.5 % 11.6-14.6 [facility] Erythrocyte distribution wid th standard deviationOrdered By: Gaetano Tilley on 01-22-2025 Erythrocyte distribution width (RBC) [Entitic vol] 50.6 fL High 35.1-43.9 [facility] GFR/1.73 sq M.predicted mckinley g non-blacks MDRD (S/P/Bld) [Vol rate/Area]Ordered By: Gaetano Tilley on 01-22-2025 Estimated GFR (MDRD) Non-Af Amer 52 Low >60 [facility] Comment on above: mL/min/1.73m2 CKD-EP I Creatinine Equation (2020) Glucose Ql (U)Ordered By: Ting Tilley on 01-22-2025 Urine Glucose (UA) Normal mg/dl Normal [facility] Hematocrit Auto (Bld) [Volum e fraction]Ordered By: Gaetano Tilley on 01-22-2025 Hematocrit (Bld) [Volume fraction] 40.9 % 37-47 [facility] Hemoglobin measurementOrdere d By: Gaetano Tilley on 01-22-2025 Hemoglobin (Bld) [Mass/Vol] 13.1 g/dL 12.0-15.0 [facility] Immature granulocytes/100 WB C Auto (Bld)Ordered By: Gaetano Tilley on 01-22-2025 Immature granulocytes/100 WBC (Bld) 0.400 % 0.0-0.9 [facility] Comment on above: IG% - Immature Granu locytes (promyelocytes, myelocytes and metamyelocytes) > 1% indicates that a LEFT SHIFT is Present. Ketones Test strip Ql (U)Ord ered By: Gaetano Tilley on 01-22-2025 Ketones Ql (U) Negative Negative [facility] L506.1001on 01-22-2025 Vitamin D 25-OH 18.5 ng/mL Low 30-100 [facility] Comment on above: Result Comment: Libby min D Status Deficiency: <20 ng/mL (50nmol/L) Insufficiency: 20-30 ng/mL (50-75 nmol/L) Sufficiency: 30-100 ng/mL (75-250 nmol/L) Toxicity: >100 ng/mL (>250 nmol/L) Performed By: #### L 500.4050, L100.0100 #### [facility] [address] [place], [address] Laboratory - Chemistry and C hemistry - challengeOrdered By: Gaetano Tilley on 01-22-2025 AST [Catalytic activity/Vol] 25 U/L <32 [facility] Lipid Profileon 01-22-2025 Cholesterol in LDL [Mass/Vol] 169 mg/dL High 0-130 [facility] Comment on above: Performed By: #### L 500.4050, L100.0100 #### [facility] [address] [place], [address] HDL Normal [facility] Comment on above: Result Comment: REOR DERED The drugs N-Acetylcysteine and Metamizole may falsely depress this assay. Performed By: #### L 500.4100, L400.0001, L100.0100, L500.4050 #### [facility] [address] [place], [address] TRIG Normal [facility] Comment on above: Result Comment: REOR DERED The drugs N-Acetylcysteine and Metamizole may falsely depress this assay. Performed By: #### L 500.4100, L400.0001, L100.0100, L500.4050 #### [facility] [address] [place], [address] CHOL Normal 200 [facility] Comment on above: Result Comment: REOR DERED Performed By: #### L 500.4100, L400.0001, L100.0100, L500.4050 #### [facility] [address] [place], [address] LDL Normal 0-130 [facility] Comment on above: Result Comment: REOR DERED Performed By: #### L 500.4100, L400.0001, L100.0100, L500.4050 #### [facility] [address] [place], [address] VLDL Normal 5-40 [facility] Comment on above: Result Comment: REOR DERED Performed By: #### L 500.4100, L400.0001, L100.0100, L500.4050 #### [facility] [address] [place], [address] Low density lipoprotein (LDL ) cholesterol measurementOrdered By: Gaetano Tilley on 01-22-2025 Cholesterol in LDL [Mass/Vol] 169 mg/dL High 0-130 [facility] Lymphocytes Auto (Unsp spec) [#/Vol]Ordered By: Gaetano Tilley on 01-22-2025 Lymphocytes (Bld) [#/Vol] 1.65 10*3/uL 0.83-4.51 [facility] Lymphocytes/100 WBC Auto (Un sp spec)Ordered By: Gaetano Tilley on 01-22-2025 Lymphocytes/100 WBC (Bld) 35.1 % 19-41 [facility] MCV (mean corpuscular volume ) determinationOrdered By: Gaetano Tilley on 01-22-2025 MCV (RBC) [Entitic vol] 102.0 fL High 81-99 [facility] Mean corpuscular hemoglobin (MCH) determinationOrdered By: Gaetano Tilley on 01-22-2025 MCH (RBC) [Entitic mass] 32.7 pg High 27.0-32.0 [facility] Mean corpuscular hemoglobin concentration (MCHC) determinationOrdered By: Gaetano Tilley on 01-22-2025 MCHC (RBC) [Mass/Vol] 32.0 g/dL 32-36 [facility] Mean platelet volume determi nationOrdered By: Gaetano Tilley on 01-22-2025 Platelet mean volume (Bld) [Entitic vol] 10.0 fL 6.2-12.0 [facility] Microscopic analysis of urin e for red blood cells (RBC)Ordered By: Gaetano Tilley on 01-22-2025 Urine RBC 0 SEEN /hpf 0-5 [facility] Monocyte percentageOrdered B y: Gaetano Tilley on 01-22-2025 Monocytes/100 WBC (Bld) 8.3 % 0-10 [facility] Mucus LM Ql (Urine sed)Order ed By: Gaetano Tilley on 01-22-2025 Mucus Ql (Urine sed) 0 SEEN /hpf [facility] Neutrophil percentageOrdered By: Gaetano Tilley on 01-22-2025 Neutrophils/100 WBC (Bld) 53.0 % 47-70 [facility] Nitrite Test strip Ql (U)Ord ered By: Gaetano Tilley on 01-22-2025 Nitrite Ql (U) Negative Negative [facility] No Panel InformationOrdered By: Gaetano Tilley on 01-22-2025 Vitamin D 25-Hydroxy 18.5 ng/mL Low 30-100 [facility] Comment on above: Vitamin D StatusDefi ciency: <20 ng/mL (50nmol/L)Insufficiency: 20-30 ng/mL (50-75 nmol/L)Sufficiency: 30-100 ng/mL (75-250 nmol/L)Toxicity: >100 ng/mL (>250 nmol/L) Nucleated red blood cell per centageOrdered By: Gaetano Tilley on 01-22-2025 Nucleated RBC/100 WBC (Bld) [Ratio] 0 % 0-5 [facility] Platelet countOrdered By: Ting Tilley on 01-22-2025 Platelets (Bld) [#/Vol] 254 10*3/uL 150-450 [facility] Protein Test strip Ql (U)Ord ered By: Gaetano Tilley on 01-22-2025 Protein Ql (U) Negative Negative [facility] RBC Auto (Bld) [#/Vol]Ordere d By: Gaetano Tilley on 01-22-2025 RBC (Bld) [#/Vol] 4.01 10*6/uL Low 4.2-5.4 [facility] Serum globulin measurementOr dered By: Gaetano Tilley on 01-22-2025 Globulin (S) [Mass/Vol] 2.9 g/dL 2.2-4.2 [facility] Serum glucose measurement (m ass/volume)Ordered By: Gaetano Tilley on 01-22-2025 Glucose [Mass/Vol] 74 mg/dL 70-99 [facility] Serum or plasma alanine parkinson otransferase (ALT) measurementOrdered By: Gaetano Tilley on 01-22-2025 ALT [Catalytic activity/Vol] 22 U/L <35 [facility] Serum or plasma albumin lamine urement (mass/volume)Ordered By: Gaetano Tilley on 01-22-2025 Albumin [Mass/Vol] 4.1 g/dL 3.4-4.8 [facility] Serum or plasma albumin/glob ulin mass ratioOrdered By: Gaetano Tilley on 01-22-2025 Albumin/Globulin [Mass ratio] 1.4 {ratio} 0.9-2.4 [facility] Serum or plasma alkaline heike sphatase measurementOrdered By: Gaetano Tilley on 01-22-2025 ALP [Catalytic activity/Vol] 92 U/L 35-104 [facility] Serum or plasma anion gap de termination (moles/volume)Ordered By: Gaetano Tilley on 01-22-2025 Anion gap [Moles/Vol] 10 mmol/L 5-15 [facility] Serum or plasma calcium lamine urement (mass/volume)Ordered By: Gaetano Tilley on 01-22-2025 Calcium [Mass/Vol] 9.4 mg/dL 7.6-11.0 [facility] Serum or plasma cholesterol in HDL measurement (mass/volume)Ordered By: Gaetano Tilley on 01-22-2025 Cholesterol in HDL [Mass/Vol] 55 mg/dL >40 [facility] Comment on above: The drugs [...] 01-22-2025 Cholesterol [Mass/Vol] 243 mg/dL High <201 [facility] Comment on above: Cholesterol level, D esirable <200 mg/dLBorderline high cholesterol 200-239 mg/dLHigh cholesterol >=240 mg/dLRecommendations of the NCEP Adult Treatment Panel for the following risk-cutoff thresholds for the [place] population. Serum or plasma potassium me asurementOrdered By: Gaetano Tilley on 01-22-2025 Potassium [Moles/Vol] 4.3 mmol/L 3.3-5.1 [facility] Serum or plasma sodium measu rement (moles/volume)Ordered By: Gaetano Tilley on 01-22-2025 Sodium [Moles/Vol] 141 mmol/L 133-145 [facility] Serum or plasma urea nitroge n measurement (mass/volume)Ordered By: Gaetano Tilley on 01-22-2025 Urea nitrogen [Mass/Vol] 22 mg/dL High 4-19 [facility] T4 Free Directon 01-22-2025 T4 FREE DIRECT 1.10 ng/dL Normal 0.76-1.46 [facility] Comment on above: Performed By: #### L 500.4050, L100.0100 #### [facility] [place], [address] T4 freeOrdered By: Gaetano hu on 01-22-2025 Free T4 [Mass/Vol] 1.10 ng/dL 0.76-1.46 [facility] TSH DL <= 0.005 mIU/L QnOrde red By: Gaetano Tilley on 01-22-2025 Thyroid Stimulating Hormone (TSH) 3.260 uIU/mL 0.300-4.200 [facility] Thyroid Stim Hormone (TSH)on 01-22-2025 TSH 3.260 uIU/mL Normal 0.300-4.200 [facility] Comment on above: Performed By: #### L 500.4050, L100.0100 #### [facility] [address] [place], [address] Total proteinOrdered By: Venkat Tilley on 01-22-2025 Protein [Mass/Vol] 7.0 g/dL 5.9-8.4 [facility] Triglycerides measurementOrd ered By: Gaetano Tilley on 01-22-2025 Triglyceride [Mass/Vol] 95 mg/dL <199 [facility] Comment on above: The drugs N-Acetylcy steine and Metamizole may falsely depress this assay. Normal range: <150 mg/dLBorderline High: 150-199 mg/dLHigh: 200-499 mg/dLVery High: >500 mg/dL Urinalysis, Completeon 01-22 RBC 0 SEEN Normal 0-5 [facility] Comment on above: Order Comment: CLEAN CATCH Performed By: #### L 500.4100, L400.0001, L100.0100, L500.4050 #### [facility] [address] [place], [address] WBC 0-5 SEEN Normal 0-5 [facility] Comment on above: Order Comment: CLEAN CATCH Performed By: #### L 500.4100, L400.0001, L100.0100, L500.4050 #### [facility] [address] [place], [address] BACTERIA 0 SEEN Normal None Seen [facility] Comment on above: Order Comment: CLEAN CATCH Performed By: #### L 500.4100, L400.0001, L100.0100, L500.4050 #### [facility] [address] [place], [address] EPI,SQUAMOUS 0 SEEN Normal 5-10 [facility] Comment on above: Order Comment: CLEAN CATCH Performed By: #### L 500.4100, L400.0001, L100.0100, L500.4050 #### [facility] [address] [place], [address] Mucus Ql (Urine sed) 0 SEEN Normal [facility] Comment on above: Order Comment: CLEAN CATCH Performed By: #### L 500.4100, L400.0001, L100.0100, L500.4050 #### [facility] [address] [place], [address] Urine blood detectionOrdered By: Gaetano Tilley on 01-22-2025 Urine Occult Blood Negative Negative [facility] Urine clarityOrdered By: Venkat Tilley on 01-22-2025 Clarity (U) Clear Clear [facility] Urine color determinationOrd ered By: Gaetano Tilley on 01-22-2025 Color (U) Yellow Yellow [facility] Urine leukocyte esterase det ection by dipstickOrdered By: Gaetano Tilley on 01-22-2025 Leukocyte esterase Test strip Ql (U) 25 /ul High Negative [facility] Urine pHOrdered By: Gaetano wilkerson on 01-22-2025 pH (U) 7.0 [pH] 5.0 - 8.0 [facility] Urine sediment bacteria coun t by microscopy (number/high power field)Ordered By: Gaetano Tilley on 01-22-2025 Bacteria LM.HPF (Urine sed) [#/Area] 0 /[HPF] None Seen [facility] Urine specific gravity measu rementOrdered By: Gaetano Tilley on 01-22-2025 Specific gravity (U) [Rel density] 1.010 1.002-1.030 [facility] Urobilinogen Ql (U)Ordered B y: Gaetano Tilley on 01-22-2025 Urine Urobilinogen Normal mg/dl Normal [facility] White blood cell (WBC) count Ordered By: Gaetano Tilley on 01-22-2025 WBC (Bld) [#/Vol] 4.7 10*3/uL 4.4-11.0 [facility] White blood cell countOrdere d By: Gaetano Tilley on 01-22-2025 Urine WBC 0-5 SEEN /hpf 0-5 [facility] 40-GL-Mcjhtxl DOrdered By: Valorie Tilley on 12-27-2024 Vitamin D 25-Hydroxy 38.9 ng/mL [facility] Comment on above: Vitamin D 25(OH) Sta tus Range Deficiency <20 ng/mL (50nmol/L) Insufficiency 20 - 30 ng/mL (50 - 75 nmol/L) Sufficiency 30 - 100 ng/mL (75 - 250 nmol/L) Toxicity >100 ng/mL (>250 nmol/L) Absolute neutrophil countOrd ered By: Gaetano Tilley on 12-27-2024 Neutrophils (Bld) [#/Vol] 1.4 10*3/uL Low 2.0-7.7 [facility] Albumin to globulin ratioOrd ered By: Gaetano Tilley on 12-27-2024 Albumin/Globulin [Mass ratio] 1.3 {ratio} 0.9-2.4 [facility] Basophil percentageOrdered B y: Gaetano Tilley on 12-27-2024 Basophils/100 WBC (Bld) 0.9 % 0-1 [facility] Bilirubin, totalOrdered By: Gaetano Tilley on 12-27-2024 Bilirubin [Mass/Vol] 0.50 mg/dL 0.20-1.00 [facility] Comment on above: For patients on eltr ombopag therapy, use of Dimension [place] TBIL is not recommended. Blood urea nitrogen (BUN)/cr eatinine ratioOrdered By: Gaetano Tilley on 12-27-2024 Urea nitrogen/Creatinine [Mass ratio] 18.0 mg/mg 10-20 [facility] CBC W/Diff, Automatedon 11-30 Absolute Lymph 1.67 X10 3/uL Normal 0.83-4.51 [facility] Comment on above: Order Comment: Order Date: 10/24/24Order Info: 0184-1 - CBCD Performed By: #### L 100.0100, L500.4050 #### [facility] [address] [place], [place], [id number] Absolute Neut 1.4 X10 3/uL Low 2.0-7.7 [facility] Comment on above: Order Comment: Order Date: 10/24/24Order Info: 0184-1 - CBCD Performed By: #### L 100.0100, L500.4050 #### [facility] [address] [place], [address] Basophils/100 WBC (Bld) 0.9 % Normal 0-1 [facility] Comment on above: Order Comment: Order Date: 10/24/24Order Info: 0184-1 - CBCD Performed By: #### L 100.0100, L500.4050 #### [facility] [address] [place], [address] Eosinophils/100 WBC (Bld) 1.5 % Normal 0-5 [facility] Comment on above: Order Comment: Order Date: 10/24/24Order Info: 0184-1 - CBCD Performed By: #### L 100.0100, L500.4050 #### [facility] [address] [place], [address] Erythrocyte distribution width (RBC) [Ratio] 13.4 % Normal 11.6-14.6 [facility] Comment on above: Order Comment: Order Date: 10/24/24Order Info: 4-1 - CBCD Performed By: #### L 100.0100, L500.4050 #### [facility] [address] [place], [address] Hematocrit (Bld) [Volume fraction] 40.1 % Normal 37-47 [facility] Comment on above: Order Comment: Order Date: 10/24/24Order Info: 0184-1 - CBCD Performed By: #### L 100.0100, L500.4050 #### [facility] [address] [place], [address] Hemoglobin (Bld) [Mass/Vol] 13.0 g/dL Normal 12.0-15.0 [facility] Comment on above: Order Comment: Order Date: 10/24/24Order Info: 0184-1 - CBCD Performed By: #### L 100.0100, L500.4050 #### [facility] [address] [place], [address] IG% 0.000 Normal 0.0-0.9 [facility] Comment on above: Order Comment: Order Date: 10/24/24Order Info: 018- - CBCD Result Comment: IG% - Immature Granulocytes (promyelocytes, myelocytes and metamyelocytes) > 1% indicates that a LEFT SHIFT is Present. Performed By: #### L 100.0100, L500.4050 #### [facility] [address] [place], [address] Lymphocytes/100 WBC (Bld) 49.0 % High 19-41 [facility] Comment on above: Order Comment: Order Date: 10/24/24Order Info: 018- - CBCD Performed By: #### L 100.0100, L500.4050 #### [facility] [address] [place], [address] MCH (RBC) [Entitic mass] 32.7 pg High 27.0-32.0 [facility] Comment on above: Order Comment: Order Date: 10/24/24Order Info: 018- - CBCD Performed By: #### L 100.0100, L500.4050 #### [facility] [address] [place], [address] MCHC (RBC) [Mass/Vol] 32.4 g/dL Normal 32-36 [facility] Comment on above: Order Comment: Order Date: 10/24/24Order Info: 018-1 - CBCD Performed By: #### L 100.0100, L500.4050 #### [facility] [address] [place], [address] MCV (RBC) [Entitic vol] 101.0 fL High 81-99 [facility] Comment on above: Order Comment: Order Date: 10/24/24Order Info: 0184-1 - CBCD Performed By: #### L 100.0100, L500.4050 #### [facility] [address] [place], [address] Monocytes/100 WBC (Bld) 8.8 % Normal 0-10 [facility] Comment on above: Order Comment: Order Date: 10/24/24Order Info: 0184-1 - CBCD Performed By: #### L 100.0100, L500.4050 #### [facility] [address] [place], [address] Neutrophils/100 WBC (Bld) 39.8 % Low 47-70 [facility] Comment on above: Order Comment: Order Date: 10/24/24Order Info: 4-1 - CBCD Performed By: #### L 100.0100, L500.4050 #### [facility] [address] [place], [address] Nucleated RBC (Bld) [#/Vol] 0 10*3/uL Normal 0-5 [facility] Comment on above: Order Comment: Order Date: 10/24/24Order Info: 4- - CBCD Performed By: #### L 100.0100, L500.4050 #### [facility] [address] [place], [address] Platelet mean volume (Bld) [Entitic vol] 9.8 fL Normal 6.2-12.0 [facility] Comment on above: Order Comment: Order Date: 10/24/24Order Info: [id number] - CBCD Performed By: #### L 100.0100, L500.4050 #### [facility] [address] [place], [address] Platelets (Bld) [#/Vol] 247 10*3/uL Normal 150-450 [facility] Comment on above: Order Comment: Order Date: 10/24/24Order Info: 0184-1 - CBCD Performed By: #### L 100.0100, L500.4050 #### [facility] [address] [place], [address] RBC (Bld) [#/Vol] 3.97 10*6/uL Low 4.2-5.4 [facility] Comment on above: Order Comment: Order Date: 10/24/24Order Info: 183- - CBCD Performed By: #### L 100.0100, L500.4050 #### [facility] [address] [place], [address] RDW SD 50.0 fl High 35.1-43.9 [facility] Comment on above: Order Comment: Order Date: 10/24/24Order Info: 183- - CBCD Performed By: #### L 100.0100, L500.4050 #### [facility] [address] [place], [address] WBC (Bld) [#/Vol] 3.4 10*3/uL Low 4.4-11.0 [facility] Comment on above: Order Comment: Order Date: 10/24/24Order Info: 183- - CBCD Performed By: #### L 100.0100, L500.4050 #### [facility] [address] [place], [address] Carbon dioxide measurementOr dered By: Gaetano Tilley on 12-27-2024 CO2 [Moles/Vol] 29.0 mmol/L 21.0-32.0 [facility] Chloride measurementOrdered By: Gaetano Tilley on 12-27-2024 Chloride [Moles/Vol] 108 mmol/L High 98-107 [facility] Comprehensive Metabolic Prof ilon 12-27-2024 Albumin [Mass/Vol] 3.9 g/dL Normal 3.2-5.0 [facility] Comment on above: Order Comment: Order Date: 10/24/24Order Info: [id number] - CMPOrder Info: [id number] - LIPIDOrder Date: 03/08/24Order Info: [id number] - MGOrder Info: 3015-3 - TSHOrder Info: 3024-7 - T4F Performed By: #### L 100.0100, L500.4050 #### [facility] [address] [place], [address] Albumin/Globulin [Mass ratio] 1.3 {ratio} Normal 0.9-2.4 [facility] Comment on above: Order Comment: Order Date: 10/24/24Order Info: [id number] - CMPOrder Info: [id number] - LIPIDOrder Date: 03/08/24Order Info: [id number] - MGOrder Info: 3015-3 - TSHOrder Info: 3024-7 - T4F Performed By: #### L 100.0100, L500.4050 #### [facility] [address] [place], [address] ALK P 53 U/L Normal 45-117 [facility] Comment on above: Order Comment: Order Date: 10/24/24Order Info: 0786-1 - CMPOrder Info: [id number] - LIPIDOrder Date: 03/08/24Order Info: [id number] - MGOrder Info: 6-3 - TSHOrder Info: 302-7 - T4F Performed By: #### L 100.0100, L500.4050 #### [facility] [address] [place], [address] ALT [Catalytic activity/Vol] 18 U/L Normal 13-56 [facility] Comment on above: Order Comment: Order Date: 10/24/24Order Info: [id number] - CMPOrder Info: [id number] - LIPIDOrder Date: 03/08/24Order Info: [id number] - MGOrder Info: 3016-3 - TSHOrder Info: 3024-7 - T4F Performed By: #### L 100.0100, L500.4050 #### [facility] [address] [place], [address] AST [Catalytic activity/Vol] 24 U/L Normal 15-37 [facility] Comment on above: Order Comment: Order Date: 10/24/24Order Info: 0786-1 - CMPOrder Info: [id number] - LIPIDOrder Date: 03/08/24Order Info: [id number] - MGOrder Info: 3016-3 - TSHOrder Info: 3024-7 - T4F Performed By: #### L 100.0100, L500.4050 #### [facility] [address] [place], [address] Bilirubin [Mass/Vol] 0.50 mg/dL Normal 0.20-1.00 [facility] Comment on above: Order Comment: Order Date: 10/24/24Order Info: 0786-1 - CMPOrder Info: [id number] - LIPIDOrder Date: 03/08/24Order Info: [id number] - MGOrder Info: 3016-3 - TSHOrder Info: 3024-7 - T4F Result Comment: For patients on eltrombopag therapy, use of Dimension [place] TBIL is not recommended. Performed By: #### L 100.0100, L500.4050 #### [facility] [address] [place], [address] BUN/CRE 18.0 RATIO Normal 10-20 [facility] Comment on above: Order Comment: Order Date: 10/24/24Order Info: 0786-1 - CMPOrder Info: [id number] - LIPIDOrder Date: 03/08/24Order Info: [id number] - MGOrder Info: 3016-3 - TSHOrder Info: 3024-7 - T4F Performed By: #### L 100.0100, L500.4050 #### [facility] [address] [place], [address] CA,Total 9.2 mg/dL Normal 8.5-10.1 [facility] Comment on above: Order Comment: Order Date: 10/24/24Order Info: 0786-1 - CMPOrder Info: [id number] - LIPIDOrder Date: 03/08/24Order Info: [id number] - MGOrder Info: 3016-3 - TSHOrder Info: 3024-7 - T4F Performed By: #### L 100.0100, L500.4050 #### [facility] [address] [place], [address] Chloride [Moles/Vol] 108 mmol/L High 98-107 [facility] Comment on above: Order Comment: Order Date: 10/24/24Order Info: 0786-1 - CMPOrder Info: [id number] - LIPIDOrder Date: 03/08/24Order Info: [id number] - MGOrder Info: 3016-3 - TSHOrder Info: 3024-7 - T4F Performed By: #### L 100.0100, L500.4050 #### [facility] [address] [place], [address] CO2 [Moles/Vol] 29.0 mmol/L Normal 21.0-32.0 [facility] Comment on above: Order Comment: Order Date: 10/24/24Order Info: 0786-1 - CMPOrder Info: [id number] - LIPIDOrder Date: 03/08/24Order Info: [id number] - MGOrder Info: 3016-3 - TSHOrder Info: 3024-7 - T4F Performed By: #### L 100.0100, L500.4050 #### [facility] [address] [place], [address] Creatinine [Mass/Vol] 0.72 mg/dL Normal 0.55-1.02 [facility] Comment on above: Order Comment: Order Date: 10/24/24Order Info: 0786-1 - CMPOrder Info: [id number] - LIPIDOrder Date: 03/08/24Order Info: [id number] - MGOrder Info: 3016-3 - TSHOrder Info: 3024-7 - T4F Result Comment: The validity of the calculated GFR GFRAA in patients over 70 years has not been determined. Clinical correlation is essential. Performed By: #### L 100.0100, L500.4050 #### [facility] [address] [place], [address] EST GFR - AA 103 mL/min Normal >60 [facility] Comment on above: Order Comment: Order Date: 10/24/24Order Info: 86-1 - CMPOrder Info: [id number] - LIPIDOrder Date: 03/08/24Order Info: [id number] - MGOrder Info: 6-3 - TSHOrder Info: 3024-7 - T4F Result Comment: Afri can Faroese GFR Calc Performed By: #### L 100.0100, L500.4050 #### [facility] [address] [place], [address] GAP 3 Low 5-15 [facility] Comment on above: Order Comment: Order Date: 10/24/24Order Info: 785-1 - CMPOrder Info: [id number] - LIPIDOrder Date: 03/08/24Order Info: [id number] - MGOrder Info: 3 - TSHOrder Info: 3027 - T4F Performed By: #### L 100.0100, L500.4050 #### [facility] [address] [place], [address] GFR/1.73 sq M.predicted among non-blacks MDRD (S/P/Bld) [Vol rate/Area] 85 mL/min/{1.73_m2} Normal >60 [facility] Comment on above: Order Comment: Order Date: 10/24/24Order Info: 785-1 - CMPOrder Info: [id number] - LIPIDOrder Date: 03/08/24Order Info: [id number] - MGOrder Info: 3 - TSHOrder Info: 3024-7 - T4F Result Comment: Non- GFR Calc Performed By: #### L 100.0100, L500.4050 #### [facility] [address] [place], [address] Globulin (S) [Mass/Vol] 2.9 g/dL Normal 2.2-4.2 [facility] Comment on above: Order Comment: Order Date: 10/24/24Order Info: 86-1 - CMPOrder Info: [id number] - LIPIDOrder Date: 03/08/24Order Info: [id number] - MGOrder Info: 3016-3 - TSHOrder Info: 3024-7 - T4F Performed By: #### L 100.0100, L500.4050 #### [facility] [address] [place], [address] Glucose [Mass/Vol] 94 mg/dL Normal 74-106 [facility] Comment on above: Order Comment: Order Date: 10/24/24Order Info: 86-1 - CMPOrder Info: [id number] - LIPIDOrder Date: 03/08/24Order Info: [id number] - MGOrder Info: 3016-3 - TSHOrder Info: 3024-7 - T4F Performed By: #### L 100.0100, L500.4050 #### [facility] [address] [place], [address] Potassium [Moles/Vol] 4.0 mmol/L Normal 3.5-5.1 [facility] Comment on above: Order Comment: Order Date: 10/24/24Order Info: 86-1 - CMPOrder Info: [id number] - LIPIDOrder Date: 03/08/24Order Info: [id number] - MGOrder Info: 3016-3 - TSHOrder Info: 3024-7 - T4F Performed By: #### L 100.0100, L500.4050 #### [facility] [address] [place], [address] Sodium [Moles/Vol] 140 mmol/L Normal 136-145 [facility] Comment on above: Order Comment: Order Date: 10/24/24Order Info: 0786-1 - CMPOrder Info: [id number] - LIPIDOrder Date: 03/08/24Order Info: [id number] - MGOrder Info: 3016-3 - TSHOrder Info: 3024-7 - T4F Performed By: #### L 100.0100, L500.4050 #### [facility] [address] [place], [address] T PROT 6.8 g/dL Normal 6.4-8.2 [facility] Comment on above: Order Comment: Order Date: 10/24/24Order Info: 0786-1 - CMPOrder Info: [id number] - LIPIDOrder Date: 03/08/24Order Info: [id number] - MGOrder Info: 3016-3 - TSHOrder Info: 302-7 - T4F Performed By: #### L 100.0100, L500.4050 #### [facility] [address] [place], [address] Urea nitrogen [Mass/Vol] 13 mg/dL Normal 7-18 [facility] Comment on above: Order Comment: Order Date: 10/24/24Order Info: [id number] - CMPOrder Info: [id number] - LIPIDOrder Date: 03/08/24Order Info: [id number] - MGOrder Info: 3016-3 - TSHOrder Info: 3024-7 - T4F Performed By: #### L 100.0100, L500.4050 #### [facility] [address] [place], [place], [address] Direct serum free thyroxine (FT4) measurementOrdered By: Gaetano Tilley on 12-27-2024 Free T4 [Mass/Vol] 0.92 ng/dL 0.76-1.46 [facility] Eosinophil percentageOrdered By: Gaetano Tilley on 12-27-2024 Eosinophils/100 WBC (Bld) 1.5 % 0-5 [facility] Erythrocyte distribution wid th ratioOrdered By: Gaetano Tilley on 12-27-2024 Erythrocyte distribution width (RBC) [Ratio] 13.4 % 11.6-14.6 [facility] Erythrocyte distribution wid th standard deviationOrdered By: Gaetano Tilley on 12-27-2024 Erythrocyte distribution width (RBC) [Entitic vol] 50.0 fL High 35.1-43.9 [facility] Estimated glomerular filtrat ion rate (GFR) AmericanOrdered By: Gaetano Tilley on 12-27-2024 Estimated GFR (MDRD) Amer 103 mL/min >60 [facility] Comment on above: GFR Calc Glomerular filtration rate ( GFR) estimationOrdered By: Gaetano Tilley on 12-27-2024 Estimated GFR (MDRD) Non-Af Amer 85 mL/min >60 [facility] Comment on above: Non- GFR Calc Glucose measurementOrdered B y: Gaetano Tilley on 12-27-2024 Glucose [Mass/Vol] 94 mg/dL 74-106 [facility] Hematocrit Auto (Bld) [Volum e fraction]Ordered By: Gaetano Tilley on 12-27-2024 Hematocrit (Bld) [Volume fraction] 40.1 % 37-47 [facility] Hemoglobin measurementOrdere d By: Gaetano Tilley on 12-27-2024 Hemoglobin (Bld) [Mass/Vol] 13.0 g/dL 12.0-15.0 [facility] High density lipoprotein (HD L) measurementOrdered By: Gaetano Tilley on 12-27-2024 Cholesterol in HDL [Mass/Vol] 76 mg/dL >40 [facility] Comment on above: The drugs N-Acetylcy steine and Metamizole may falsely depress this assay. Reference Range HDL <40 mg/dL Low HDL Cholesterol HDL >or= 60 mg/dL High HDL Cholesterol Immature granulocytes/100 WB C Auto (Bld)Ordered By: Gaetano Tilley on 12-27-2024 Immature granulocytes/100 WBC (Bld) 0.000 % 0.0-0.9 [facility] Comment on above: IG% - Immature Granu locytes (promyelocytes, myelocytes and metamyelocytes) > 1% indicates that a LEFT SHIFT is Present. Laboratory - Chemistry and C hemistry - challengeOrdered By: Gaetano Tilley on 12-27-2024 AST [Catalytic activity/Vol] 24 U/L 15-37 [facility] Lipid Profileon 12-27-2024 Cholesterol [Mass/Vol] 231 mg/dL High 200 [facility] Comment on above: Order Comment: Order Date: 10/24/24Order Info: [id number] - CMPOrder Info: [id number] - LIPIDOrder Date: 03/08/24Order Info: [id number] - MGOrder Info: [id number] - TSHOrder Info: 3027 - T4F Result Comment: <200 mg/dL Desirable 200-240 mg/dL Borderline >240 mg/dL High Risk Performed By: #### L 500.4050, L100.0100 #### [facility] [address] [place], [address] Cholesterol in HDL [Mass/Vol] 76 mg/dL Normal [facility] Comment on above: Order Comment: Order Date: 10/24/24Order Info: 0786-1 - CMPOrder Info: [id number] - LIPIDOrder Date: 03/08/24Order Info: [id number] - MGOrder Info: 6-3 - TSHOrder Info: 3024-05 - T4F Result Comment: The drugs N-Acetylcysteine and Metamizole may falsely depress this assay. Reference Range HDL <40 mg/dL Low HDL Cholesterol HDL >or= 60 mg/dL High HDL Cholesterol Performed By: #### L 500.4050, L100.0100 #### [facility] [address] [place], [address] Cholesterol in LDL [Mass/Vol] 126 mg/dL Normal 0-130 [facility] Comment on above: Order Comment: Order Date: 10/24/24Order Info: 86-1 - CMPOrder Info: [id number] - LIPIDOrder Date: 03/08/24Order Info: [id number] - MGOrder Info: 6-3 - TSHOrder Info: 7 - T4F Performed By: #### L 500.4050, L100.0100 #### [facility] [address] [place], [address] Cholesterol in VLDL [Mass/Vol] 29 mg/dL Normal 5-40 [facility] Comment on above: Order Comment: Order Date: 10/24/24Order Info: 86-1 - CMPOrder Info: [id number] - LIPIDOrder Date: 03/08/24Order Info: [id number] - MGOrder Info: 6-3 - TSHOrder Info: 3027 - T4F Performed By: #### L 500.4050, L100.0100 #### [facility] [address] [place], [address] Triglyceride [Mass/Vol] 147 mg/dL Normal [facility] Comment on above: Order Comment: Order Date: 10/24/24Order Info: [id number] - CMPOrder Info: [id number] - LIPIDOrder Date: 03/08/24Order Info: [id number] - MGOrder Info: [id number] - TSHOrder Info: 3024-7 - T4F Result Comment: The drugs N-Acetylcysteine and Metamizole may falsely depress this assay. Serum Triglycerides Reference Interval Normal <150 mg/dL Borderline high 150 - 199 mg/dL High 200 - 499 mg/dL Very High > or = 500 mg/dL Performed By: #### L 500.4050, L100.0100 #### [facility] [address] [place], [address] Low density lipoprotein (LDL ) cholesterol measurementOrdered By: Gaetano Tilley on 12-27-2024 Cholesterol in LDL [Mass/Vol] 126 mg/dL 0-130 [facility] Lymphocytes Auto (Unsp spec) [#/Vol]Ordered By: Gaetano Tilley on 12-27-2024 Lymphocytes (Bld) [#/Vol] 1.67 10*3/uL 0.83-4.51 [facility] Lymphocytes/100 WBC Auto (Un sp spec)Ordered By: Gaetano Tilley on 12-27-2024 Lymphocytes/100 WBC (Bld) 49.0 % High 19-41 [facility] MCV (mean corpuscular volume ) determinationOrdered By: Gaetano Tilley on 12-27-2024 MCV (RBC) [Entitic vol] 101.0 fL High 81-99 [facility] Magnesiumon 12-27-2024 Magnesium [Mass/Vol] 2.3 mg/dL Normal 1.6-2.6 [facility] Comment on above: Order Comment: Order Date: 10/24/24Order Info: [id number] - CMPOrder Info: [id number] - LIPIDOrder Date: 03/08/24Order Info: [id number] - MGOrder Info: 3 - TSHOrder Info: 302-7 - T4F Performed By: #### L 500.4050, L100.0100 #### [facility] [place], [address] Magnesium measurementOrdered By: Gaetano Tilley on 12-27-2024 Magnesium [Mass/Vol] 2.3 mg/dL 1.6-2.6 [facility] Mean corpuscular hemoglobin (MCH) determinationOrdered By: Gaetano Tilley on 12-27-2024 MCH (RBC) [Entitic mass] 32.7 pg High 27.0-32.0 [facility] Mean corpuscular hemoglobin concentration (MCHC) determinationOrdered By: Gaetano Tilley on 12-27-2024 MCHC (RBC) [Mass/Vol] 32.4 g/dL 32-36 [facility] Mean platelet volume determi nationOrdered By: Gaetano Tilley on 12-27-2024 Platelet mean volume (Bld) [Entitic vol] 9.8 fL 6.2-12.0 [facility] Monocyte percentageOrdered B y: Gaetano Tilley on 12-27-2024 Monocytes/100 WBC (Bld) 8.8 % 0-10 [facility] Neutrophil percentageOrdered By: Gaetano Tilley on 12-27-2024 Neutrophils/100 WBC (Bld) 39.8 % Low 47-70 [facility] Nucleated red blood cell per centageOrdered By: Gaetano Tilley on 12-27-2024 Nucleated RBC/100 WBC (Bld) [Ratio] 0 % 0-5 [facility] Platelet countOrdered By: Ting Tilley on 12-27-2024 Platelets (Bld) [#/Vol] 247 10*3/uL 150-450 [facility] Potassium measurementOrdered By: Gaetano Tilley on 12-27-2024 Potassium [Moles/Vol] 4.0 mmol/L 3.5-5.1 [facility] RBC Auto (Bld) [#/Vol]Ordere d By: Gaetano Tilley on 12-27-2024 RBC (Bld) [#/Vol] 3.97 10*6/uL Low 4.2-5.4 [facility] Serum anion gap measurementO rdered By: Gaetano Tilley on 12-27-2024 Anion gap [Moles/Vol] 3 mmol/L Low 5-15 [facility] Serum globulin measurementOr dered By: Gaetano Tilley on 12-27-2024 Globulin (S) [Mass/Vol] 2.9 g/dL 2.2-4.2 [facility] Serum or plasma alanine parkinson otransferase (ALT) measurementOrdered By: Gaetano Tilley on 12-27-2024 ALT [Catalytic activity/Vol] 18 U/L 13-56 [facility] Serum or plasma albumin lamine urement (mass/volume)Ordered By: Gaetano Tilley on 12-27-2024 Albumin [Mass/Vol] 3.9 g/dL 3.2-5.0 [facility] Serum or plasma alkaline heike sphatase measurementOrdered By: Gaetano Tilley on 12-27-2024 ALP [Catalytic activity/Vol] 53 U/L 45-117 [facility] Serum or plasma calcium lamine urement (mass/volume)Ordered By: Gaetano Tilley on 12-27-2024 Calcium [Mass/Vol] 9.2 mg/dL 8.5-10.1 [facility] Serum or plasma cholesterol measurement (mass/volume)Ordered By: Gaetano Tilley on 12-27-2024 Cholesterol [Mass/Vol] 231 mg/dL High <200 [facility] Comment on above: <200 mg/dL Desirable 200-240 mg/dL Borderline >240 mg/dL High Risk Serum or plasma creatinine m easurement (mass/volume)Ordered By: Gaetano Tilley on 12-27-2024 Creatinine [Mass/Vol] 0.72 mg/dL 0.55-1.02 [facility] Comment on above: The validity of the calculated GFR & GFRAA in patients over 70 years has not been determined. Clinical correlation is essential. Serum or plasma urea nitroge n measurement (mass/volume)Ordered By: Gaetano Tilley on 12-27-2024 Urea nitrogen [Mass/Vol] 13 mg/dL 7-18 [facility] Sodium levelOrdered By: Gaetano Tilley on 12-27-2024 Sodium [Moles/Vol] 140 mmol/L 136-145 [facility] T4 Free Directon 12-27-2024 T4 FREE DIRECT 0.92 ng/dL Normal 0.76-1.46 [facility] Comment on above: Order Comment: Order Date: 10/24/24Order Info: [id number] - CMPOrder Info: [id number] - LIPIDOrder Date: 03/08/24Order Info: [id number] - MGOrder Info: [id number] - TSHOrder Info: 3027 - T4F Performed By: #### L 500.4050, L100.0100 #### [facility] [address] [place], [place], [address] TSH QnOrdered By: Geatano grace on 12-27-2024 Thyroid Stimulating Hormone (TSH) 5.190 uIU/mL High 0.358-3.740 [facility] Thyroid Stim Hormone (TSH)on 12-27-2024 TSH 5.190 uIU/mL High 0.358-3.740 [facility] Comment on above: Order Comment: Order Date: 10/24/24Order Info: [id number] - CMPOrder Info: [id number] - LIPIDOrder Date: 03/08/24Order Info: [id number] - MGOrder Info: [id number] - TSHOrder Info: 7 - T4F Performed By: #### L 500.4050, L100.0100 #### [facility] [address] [place], [place], [address] Total proteinOrdered By: Venkat Tilley on 12-27-2024 Protein [Mass/Vol] 6.8 g/dL 6.4-8.2 [facility] Triglycerides measurementOrd ered By: Gaetano Tilley on 12-27-2024 Triglyceride [Mass/Vol] 147 mg/dL <199 [facility] Comment on above: The drugs N-Acetylcy steine and Metamizole may falsely depress this assay.Serum Triglycerides Reference Interval Normal <150 mg/dL Borderline high 150 - 199 mg/dL High 200 - 499 mg/dL Very High > or = 500 mg/dL Very low density lipoprotein (VLDL) cholesterol measurementOrdered By: Gaetano Tilley on 12-27-2024 VLDL Cholesterol 29 mg/dL 5-40 [facility] Vitamin D,25 Hydroxyon 12-27 Vitamin D 25-OH 38.9 ng/mL Normal [facility] Comment on above: Order Comment: Order Date: 10/24/24Order Info: [id number] - VITD25 Result Comment: Libby min D 25(OH) Status Range Deficiency <20 ng/mL (50nmol/L) Insufficiency 20 - 30 ng/mL (50 - 75 nmol/L) Sufficiency 30 - 100 ng/mL (75 - 250 nmol/L) Toxicity >100 ng/mL (>250 nmol/L) Performed By: #### L 500.4050, L100.0100 #### [facility] [address] [place], [address] White blood cell (WBC) count Ordered By: Gaetano Tilley on 12-27-2024 WBC (Bld) [#/Vol] 3.4 10*3/uL Low 4.4-11.0 [facility] 18-UD-Temtvit DOrdered By: Valorie Tilley on 10-08-2024 Vitamin D 25-Hydroxy 31.8 ng/mL [facility] Comment on above: Vitamin D 25(OH) Sta tus Range Deficiency <20 ng/mL (50nmol/L) Insufficiency 20 - 30 ng/mL (50 - 75 nmol/L) Sufficiency 30 - 100 ng/mL (75 - 250 nmol/L) Toxicity >100 ng/mL (>250 nmol/L) Absolute neutrophil countOrd ered By: Gaetano Tilley on 10-08-2024 Neutrophils (Bld) [#/Vol] 2.1 10*3/uL 2.0-7.7 [facility] Albumin to globulin ratioOrd ered By: Gaetano Tilley on 10-08-2024 Albumin/Globulin [Mass ratio] 1.3 {ratio} 0.9-2.4 [facility] Basophil percentageOrdered B y: Gaetano Tilley on 10-08-2024 Basophils/100 WBC (Bld) 0.8 % 0-1 [facility] Bilirubin, totalOrdered By: Gaetano Tilley on 10-08-2024 Bilirubin [Mass/Vol] 0.50 mg/dL 0.20-1.00 [facility] Comment on above: For patients on eltr ombopag therapy, use of Dimension [place] TBIL is not recommended. Blood urea nitrogen (BUN)/cr eatinine ratioOrdered By: Gaetano Tilley on 10-08-2024 Urea nitrogen/Creatinine [Mass ratio] 16.1 mg/mg 10-20 [facility] CBC W/Diff, Automatedon 09-28 Absolute Lymph 2.32 X10 3/uL Normal 0.83-4.51 [facility] Comment on above: Order Comment: DR. Helga RADFORD GETS EVERYTHINGDRJoseph MATUTE GETS CBCD CMPOrder Date: 06/15/24Order Info: 018- - CBCD Performed By: #### L 500.4050, L100.0100 #### [facility] [address] [place], [address] Absolute Neut 2.1 X10 3/uL Normal 2.0-7.7 [facility] Comment on above: Order Comment: DR. Helga RADFORD GETS EVERYTHINGDRJoseph MATUTE GETS CBCD CMPOrder Date: 06/15/24Order Info: 018- - CBCD Performed By: #### L 500.4050, L100.0100 #### [facility] [address] [place], [address] Basophils/100 WBC (Bld) 0.8 % Normal 0-1 [facility] Comment on above: Order Comment: DR. Helga RADFORD GETS EVERYTHINGDR. JUJU GETS CBCD CMPOrder Date: 06/15/24Order Info: 018-1 - CBCD Performed By: #### L 500.4050, L100.0100 #### [facility] [address] [place], [address] Eosinophils/100 WBC (Bld) 1.0 % Normal 0-5 [facility] Comment on above: Order Comment: DR. Helga RADFORD GETS EVERYTHINGDR. JUJU GETS CBCD CMPOrder Date: 06/15/24Order Info: [id number] - CBCD Performed By: #### L 500.4050, L100.0100 #### [facility] [address] [place], [address] Erythrocyte distribution width (RBC) [Ratio] 14.6 % Normal 11.6-14.6 [facility] Comment on above: Order Comment: DR. Helga RADFORD GETS EVERYTHINGDR. MATUTE GETS CBCD CMPOrder Date: 06/15/24Order Info: 183-11 - CBCD Performed By: #### L 500.4050, L100.0100 #### [facility] [address] [place], [address] Hematocrit (Bld) [Volume fraction] 41.3 % Normal 37-47 [facility] Comment on above: Order Comment: DR. Helga RADFORD GETS EVERYTHINGDR. MATUTE GETS CBCD CMPOrder Date: 06/15/24Order Info: 183-11 - CBCD Performed By: #### L 500.4050, L100.0100 #### [facility] [address] [place], [address] Hemoglobin (Bld) [Mass/Vol] 13.7 g/dL Normal 12.0-15.0 [facility] Comment on above: Order Comment: DR. Helga RADFORD GETS EVERYTHINGDR. MATUTE GETS CBCD CMPOrder Date: 06/15/24Order Info: 183-11 - CBCD Performed By: #### L 500.4050, L100.0100 #### [facility] [address] [place], [address] IG% 0.200 Normal 0.0-0.9 [facility] Comment on above: Order Comment: DR. Helga RADFORD GETS EVERYTHINGDR. MATUTE GETS CBCD CMPOrder Date: 06/15/24Order Info: 183-11 - CBCD Result Comment: IG% - Immature Granulocytes (promyelocytes, myelocytes and metamyelocytes) > 1% indicates that a LEFT SHIFT is Present. Performed By: #### L 500.4050, L100.0100 #### [facility] [address] [place], [address] Lymphocytes/100 WBC (Bld) 47.0 % High 19-41 [facility] Comment on above: Order Comment: DR. Helga RADFORD GETS EVERYTHINGDRJoseph MATUTE GETS CBCD CMPOrder Date: 06/15/24Order Info: 183-11 - CBCD Performed By: #### L 500.4050, L100.0100 #### [facility] [address] [place], [address] MCH (RBC) [Entitic mass] 32.5 pg High 27.0-32.0 [facility] Comment on above: Order Comment: DR. Helga RADFORD GETS EVERYTHINGDRJoseph MATUTE GETS CBCD CMPOrder Date: 06/15/24Order Info: 183-11 - CBCD Performed By: #### L 500.4050, L100.0100 #### [facility] [address] [place], [address] MCHC (RBC) [Mass/Vol] 33.2 g/dL Normal 32-36 [facility] Comment on above: Order Comment: DR. Helga RADFORD GETS EVERYTHINGDR. JUJU GETS CBCD CMPOrder Date: 06/15/24Order Info: 183-11 - CBCD Performed By: #### L 500.4050, L100.0100 #### [facility] [address] [place], [address] MCV (RBC) [Entitic vol] 98.1 fL Normal 81-99 [facility] Comment on above: Order Comment: DR. Helga RADFORD GETS HAILEYDRJoseph MATUTE GETS CBCD CMPOrder Date: 06/15/24Order Info: 183-11 - CBCD Performed By: #### L 500.4050, L100.0100 #### [facility] [address] [place], [address] Monocytes/100 WBC (Bld) 8.7 % Normal 0-10 [facility] Comment on above: Order Comment: DR. Helga RADFORD GETS EVERYTHINGDR. JUJU GETS CBCD CMPOrder Date: 06/15/24Order Info: 183- - CBCD Performed By: #### L 500.4050, L100.0100 #### [facility] [address] [place], [address] Neutrophils/100 WBC (Bld) 42.3 % Low 47-70 [facility] Comment on above: Order Comment: DR. Helga RADFORD GETS EVERYTHINGDR. JUJU GETS CBCD CMPOrder Date: 06/15/24Order Info: 183-11 - CBCD Performed By: #### L 500.4050, L100.0100 #### [facility] [address] [place], [address] Nucleated RBC (Bld) [#/Vol] 0 10*3/uL Normal 0-5 [facility] Comment on above: Order Comment: DR. Helga RADFORD GETS EVERYTHINGDR. JUJU GETS CBCD CMPOrder Date: 06/15/24Order Info: 183-11 - CBCD Performed By: #### L 500.4050, L100.0100 #### [facility] [address] [place], [address] Platelet mean volume (Bld) [Entitic vol] 9.9 fL Normal 6.2-12.0 [facility] Comment on above: Order Comment: DR. Helga RADFORD GETS EVERYTHINGDR. JUJU GETS CBCD CMPOrder Date: 06/15/24Order Info: 183- - CBCD Performed By: #### L 500.4050, L100.0100 #### [facility] [address] [place], [address] Platelets (Bld) [#/Vol] 293 10*3/uL Normal 150-450 [facility] Comment on above: Order Comment: DR. Helga RADFORD GETS EVERYTHINGDR. JUJU GETS CBCD CMPOrder Date: 06/15/24Order Info: 183-11 - CBCD Performed By: #### L 500.4050, L100.0100 #### [facility] [address] [place], [address] RBC (Bld) [#/Vol] 4.21 10*6/uL Normal 4.2-5.4 [facility] Comment on above: Order Comment: DR. Helga RADFORD GETS EVERYTHINGDR. JUJU GETS CBCD CMPOrder Date: 06/15/24Order Info: 183-11 - CBCD Performed By: #### L 500.4050, L100.0100 #### [facility] [address] [place], [address] RDW SD 53.0 fl High 35.1-43.9 [facility] Comment on above: Order Comment: DR. Helga RADFORD GETS EVERYTHINGDR. JUJU GETS CBCD CMPOrder Date: 06/15/24Order Info: 183-11 - CBCD Performed By: #### L 500.4050, L100.0100 #### [facility] [address] [place], [address] WBC (Bld) [#/Vol] 4.9 10*3/uL Normal 4.4-11.0 [facility] Comment on above: Order Comment: DR. Helga RADFORD GETS EVERYTHINGDR. JUJU GETS CBCD CMPOrder Date: 06/15/24Order Info: 183-11 - CBCD Performed By: #### L 500.4050, L100.0100 #### [facility] [address] [place], [address] Carbon dioxide measurementOr dered By: Gaetano Tilley on 10-08-2024 CO2 [Moles/Vol] 26.0 mmol/L 21.0-32.0 [facility] Chloride measurementOrdered By: Gaetano Tilley on 10-08-2024 Chloride [Moles/Vol] 107 mmol/L 98-107 [facility] Comprehensive Metabolic Prof ilon 10-08-2024 Albumin [Mass/Vol] 4.0 g/dL Normal 3.2-5.0 [facility] Comment on above: Order Comment: DR. Helga RADFORD GETS EVERYTHINGDRJoseph MATUTE GETS CBCD CMPOrder Date: 06/15/24Order Info: 785- - CMPOrder Date: 03/08/24Order Info: [id number] - LIPIDOrder Info: [id number] - TSHOrder Info: 3024-7 - T4F Performed By: #### L 500.4050, L100.0100 #### [facility] [address] [place], [address] Albumin/Globulin [Mass ratio] 1.3 {ratio} Normal 0.9-2.4 [facility] Comment on above: Order Comment: DR. Helga RADFORD GETS EVERYTHINGDRJoseph MATUTE GETS CBCD CMPOrder Date: 06/15/24Order Info: [id number] - CMPOrder Date: 03/08/24Order Info: [id number] - LIPIDOrder Info: [id number] - TSHOrder Info: 3024-7 - T4F Performed By: #### L 500.4050, L100.0100 #### [facility] [address] [place], [address] ALK P 59 U/L Normal 45-117 [facility] Comment on above: Order Comment: DR. Helga RADFORD GETS EVERYTHINGDRJoseph MATUTE GETS CBCD CMPOrder Date: 06/15/24Order Info: [id number] - CMPOrder Date: 03/08/24Order Info: [id number] - LIPIDOrder Info: [id number] - TSHOrder Info: 3024-7 - T4F Performed By: #### L 500.4050, L100.0100 #### [facility] [address] [place], [address] ALT [Catalytic activity/Vol] 20 U/L Normal 13-56 [facility] Comment on above: Order Comment: DR. Helga RADFORD GETS EVERYTHINGDRJoseph MATUTE GETS CBCD CMPOrder Date: 06/15/24Order Info: [id number] - CMPOrder Date: 03/08/24Order Info: [id number] - LIPIDOrder Info: [id number] - TSHOrder Info: 3024-7 - T4F Performed By: #### L 500.4050, L100.0100 #### [facility] [address] [place], [address] AST [Catalytic activity/Vol] 20 U/L Normal 15-37 [facility] Comment on above: Order Comment: DR. Helga RADFORD GETS HAILEYDRJoseph MATUTE GETS CBCD CMPOrder Date: 06/15/24Order Info: 785- - CMPOrder Date: 03/08/24Order Info: [id number] - LIPIDOrder Info: 63 - TSHOrder Info: 302-7 - T4F Performed By: #### L 500.4050, L100.0100 #### [facility] [address] [place], [address] Bilirubin [Mass/Vol] 0.50 mg/dL Normal 0.20-1.00 [facility] Comment on above: Order Comment: DR. Helga RADFORD GETS EVERYTHINGDR. MATUTE GETS CBCD CMPOrder Date: 06/15/24Order Info: [id number] - CMPOrder Date: 03/08/24Order Info: [id number] - LIPIDOrder Info: 63 - TSHOrder Info: 3024-7 - T4F Result Comment: For patients on eltrombopag therapy, use of Dimension [place] TBIL is not recommended. Performed By: #### L 500.4050, L100.0100 #### [facility] [address] [place], [address] BUN/CRE 16.1 RATIO Normal 10-20 [facility] Comment on above: Order Comment: DR. Helga RADFORD GETS EVERYTHINGDR. MATUTE GETS CBCD CMPOrder Date: 06/15/24Order Info: [id number]- - CMPOrder Date: 03/08/24Order Info: [id number] - LIPIDOrder Info: [id number] - TSHOrder Info: 3024-7 - T4F Performed By: #### L 500.4050, L100.0100 #### [facility] [address] [place], [address] CA,Total 9.4 mg/dL Normal 8.5-10.1 [facility] Comment on above: Order Comment: DR. Helga RADFORD GETS EVERYTHINGDR. MATUTE GETS CBCD CMPOrder Date: 06/15/24Order Info: [id number] - CMPOrder Date: 03/08/24Order Info: [id number] - LIPIDOrder Info: [id number] - TSHOrder Info: 3024-7 - T4F Performed By: #### L 500.4050, L100.0100 #### [facility] [address] [place], [address] Chloride [Moles/Vol] 107 mmol/L Normal 98-107 [facility] Comment on above: Order Comment: DR. Helga RADFORD GETS HAILEYDRJoseph MATUTE GETS CBCD CMPOrder Date: 06/15/24Order Info: [id number] - CMPOrder Date: 03/08/24Order Info: [id number] - LIPIDOrder Info: [id number] - TSHOrder Info: 3024-7 - T4F Performed By: #### L 500.4050, L100.0100 #### [facility] [address] [place], [address] CO2 [Moles/Vol] 26.0 mmol/L Normal 21.0-32.0 [facility] Comment on above: Order Comment: DR. Helga RADFORD GETS EVERYTHINGDRJoseph MATUTE GETS CBCD CMPOrder Date: 06/15/24Order Info: [id number] - CMPOrder Date: 03/08/24Order Info: [id number] - LIPIDOrder Info: [id number] - TSHOrder Info: 3024-7 - T4F Performed By: #### L 500.4050, L100.0100 #### [facility] [address] [place], [address] Creatinine [Mass/Vol] 0.74 mg/dL Normal 0.55-1.02 [facility] Comment on above: Order Comment: DR. Helga RADFORD GETS EVERYTHINGDRJoseph MATUTE GETS CBCD CMPOrder Date: 06/15/24Order Info: [id number]- - CMPOrder Date: 03/08/24Order Info: [id number] - LIPIDOrder Info: [id number] - TSHOrder Info: 3024-7 - T4F Result Comment: The validity of the calculated GFR GFRAA in patients over 70 years has not been determined. Clinical correlation is essential. Performed By: #### L 500.4050, L100.0100 #### [facility] [address] [place], [address] EST GFR - AA 100 mL/min Normal >60 [facility] Comment on above: Order Comment: DR. Helga RADFORD GETS EVERYTHINGDRJoseph MATUTE GETS CBCD CMPOrder Date: 06/15/24Order Info: [id number] - CMPOrder Date: 03/08/24Order Info: [id number] - LIPIDOrder Info: [id number] - TSHOrder Info: 3024-7 - T4F Result Comment: Afri can Faroese GFR Calc Performed By: #### L 500.4050, L100.0100 #### [facility] [address] [place], [address] GAP 8 Normal 5-15 [facility] Comment on above: Order Comment: DR. Helga RADFORD GETS EVERYTHINGDRJoseph MATUTE GETS CBCD CMPOrder Date: 06/15/24Order Info: [id number] - CMPOrder Date: 03/08/24Order Info: [id number] - LIPIDOrder Info: [id number] - TSHOrder Info: 3024-7 - T4F Performed By: #### L 500.4050, L100.0100 #### [facility] [address] [place], [address] GFR/1.73 sq M.predicted among non-blacks MDRD (S/P/Bld) [Vol rate/Area] 83 mL/min/{1.73_m2} Normal >60 [facility] Comment on above: Order Comment: DR. Helga RADFORD GETS EVERYTHINGDRJoseph MATUTE GETS CBCD CMPOrder Date: 06/15/24Order Info: [id number] - CMPOrder Date: 03/08/24Order Info: [id number] - LIPIDOrder Info: 6-3 - TSHOrder Info: 3024-7 - T4F Result Comment: Non- GFR Calc Performed By: #### L 500.4050, L100.0100 #### [facility] [address] [place], [address] Globulin (S) [Mass/Vol] 3.0 g/dL Normal 2.2-4.2 [facility] Comment on above: Order Comment: DR. Helga RADFORD GETS EVERYTHINGDR. JUJU GETS CBCD CMPOrder Date: 06/15/24Order Info: [id number] - CMPOrder Date: 03/08/24Order Info: [id number] - LIPIDOrder Info: 3 - TSHOrder Info: 3024-7 - T4F Performed By: #### L 500.4050, L100.0100 #### [facility] [address] [place], [address] Glucose [Mass/Vol] 87 mg/dL Normal 74-106 [facility] Comment on above: Order Comment: DR. Helga RADFORD GETS EVERYTHINGDRJoseph MATUTE GETS CBCD CMPOrder Date: 06/15/24Order Info: [id number] - CMPOrder Date: 03/08/24Order Info: [id number] - LIPIDOrder Info: 63 - TSHOrder Info: 3024-7 - T4F Performed By: #### L 500.4050, L100.0100 #### [facility] [address] [place], [address] Potassium [Moles/Vol] 3.6 mmol/L Normal 3.5-5.1 [facility] Comment on above: Order Comment: DR. Helga RADFORD GETS EVERYTHINGDRJoseph MATUTE GETS CBCD CMPOrder Date: 06/15/24Order Info: [id number] - CMPOrder Date: 03/08/24Order Info: [id number] - LIPIDOrder Info: 6-3 - TSHOrder Info: 3024-7 - T4F Performed By: #### L 500.4050, L100.0100 #### [facility] [address] [place], [address] Sodium [Moles/Vol] 141 mmol/L Normal 136-145 [facility] Comment on above: Order Comment: DR. Helga RADFORD GETS EVERYTHINGDR. JUJU GETS CBCD CMPOrder Date: 06/15/24Order Info: [id number] - CMPOrder Date: 03/08/24Order Info: [id number] - LIPIDOrder Info: 6-3 - TSHOrder Info: 3024-7 - T4F Performed By: #### L 500.4050, L100.0100 #### [facility] [address] [place], [address] T PROT 7.0 g/dL Normal 6.4-8.2 [facility] Comment on above: Order Comment: DR. Helga RADFORD GETS HAILEYDRJoseph MATUTE GETS CBCD CMPOrder Date: 06/15/24Order Info: [id number] - CMPOrder Date: 03/08/24Order Info: [id number] - LIPIDOrder Info: 6-3 - TSHOrder Info: 3024-7 - T4F Performed By: #### L 500.4050, L100.0100 #### [facility] [address] [place], [address] Urea nitrogen [Mass/Vol] 12 mg/dL Normal 7-18 [facility] Comment on above: Order Comment: DR. Helga RADFORD GETS EVERYTHINGDRJoseph MATUTE GETS CBCD CMPOrder Date: 06/15/24Order Info: [id number] - CMPOrder Date: 03/08/24Order Info: [id number] - LIPIDOrder Info: [id number] - TSHOrder Info: 3024-7 - T4F Performed By: #### L 500.4050, L100.0100 #### [facility] [address] [place], [address] Direct serum free thyroxine (FT4) measurementOrdered By: Gaetano Tilley on 10-08-2024 Free T4 [Mass/Vol] 0.95 ng/dL 0.76-1.46 [facility] Eosinophil percentageOrdered By: Gaetano Tilley on 10-08-2024 Eosinophils/100 WBC (Bld) 1.0 % 0-5 [facility] Erythrocyte distribution wid th ratioOrdered By: Gaetano Tilley on 10-08-2024 Erythrocyte distribution width (RBC) [Ratio] 14.6 % 11.6-14.6 [facility] Erythrocyte distribution wid th standard deviationOrdered By: Gaetano Tilley on 10-08-2024 Erythrocyte distribution width (RBC) [Entitic vol] 53.0 fL High 35.1-43.9 [facility] Estimated glomerular filtrat ion rate (GFR) AmericanOrdered By: Gaetano Tilley on 10-08-2024 Estimated GFR (MDRD) Amer 100 mL/min >60 [facility] Comment on above: GFR Calc Glomerular filtration rate ( GFR) estimationOrdered By: Gaetano Tilley on 10-08-2024 Estimated GFR (MDRD) Non-Af Amer 83 mL/min >60 [facility] Comment on above: Non- GFR Calc Glucose measurementOrdered B y: Gaetano Tilley on 10-08-2024 Glucose [Mass/Vol] 87 mg/dL 74-106 [facility] Hematocrit Auto (Bld) [Volum e fraction]Ordered By: Gaetano Tilley on 10-08-2024 Hematocrit (Bld) [Volume fraction] 41.3 % 37-47 [facility] Hemoglobin measurementOrdere d By: Gaetano Tilley on 10-08-2024 Hemoglobin (Bld) [Mass/Vol] 13.7 g/dL 12.0-15.0 [facility] High density lipoprotein (HD L) measurementOrdered By: Gaetano Tilley on 10-08-2024 Cholesterol in HDL [Mass/Vol] 80 mg/dL >40 [facility] Comment on above: The drugs N-Acetylcy steine and Metamizole may falsely depress this assay. Reference Range HDL <40 mg/dL Low HDL Cholesterol HDL >or= 60 mg/dL High HDL Cholesterol Immature granulocytes/100 WB C Auto (Bld)Ordered By: Gaetano Tilley on 10-08-2024 Immature granulocytes/100 WBC (Bld) 0.200 % 0.0-0.9 [facility] Comment on above: IG% - Immature Granu locytes (promyelocytes, myelocytes and metamyelocytes) > 1% indicates that a LEFT SHIFT is Present. Laboratory - Chemistry and C hemistry - challengeOrdered By: Gaetano Tilley on 10-08-2024 AST [Catalytic activity/Vol] 20 U/L 15- [facility] Lipid Profileon 10-08-2024 Cholesterol [Mass/Vol] 341 mg/dL High 200 [facility] Comment on above: Order Comment: DR. Helga RADFORD GETS HAILEYDRJoseph MATUTE GETS CBCD CMPOrder Date: 06/15/24Order Info: [id number] - CMPOrder Date: 03/08/24Order Info: [id number] - LIPIDOrder Info: [id number] - TSHOrder Info: [id number] - T4F Result Comment: <200 mg/dL Desirable 200-240 mg/dL Borderline >240 mg/dL High Risk Performed By: #### L 500.4050, L100.0100 #### [facility] [address] [place], [address] Cholesterol in HDL [Mass/Vol] 80 mg/dL Normal [facility] Comment on above: Order Comment: DR. Helga RADOFRD GETS EVERYTHINGDR. MATUTE GETS CBCD CMPOrder Date: 06/15/24Order Info: [id number] - CMPOrder Date: 03/08/24Order Info: [id number] - LIPIDOrder Info: [id number] - TSHOrder Info: [id number] - T4F Result Comment: The drugs N-Acetylcysteine and Metamizole may falsely depress this assay. Reference Range HDL <40 mg/dL Low HDL Cholesterol HDL >or= 60 mg/dL High HDL Cholesterol Performed By: #### L 500.4050, L100.0100 #### [facility] [address] [place], [address] Cholesterol in LDL [Mass/Vol] 224 mg/dL High 0-130 [facility] Comment on above: Order Comment: DR. Helga RADFORD GETS EVERYTHINGDRJoseph MATUTE GETS CBCD CMPOrder Date: 06/15/24Order Info: [id number] - CMPOrder Date: 03/08/24Order Info: [id number] - LIPIDOrder Info: [id number] - TSHOrder Info: 7 - T4F Performed By: #### L 500.4050, L100.0100 #### [facility] [address] [place], [address] Cholesterol in VLDL [Mass/Vol] 37 mg/dL Normal 5-40 [facility] Comment on above: Order Comment: DR. Helga RADFORD GETS EVERYTHINGDRJoseph MATUTE GETS CBCD CMPOrder Date: 06/15/24Order Info: [id number] - CMPOrder Date: 03/08/24Order Info: [id number] - LIPIDOrder Info: 6-3 - TSHOrder Info: 7 - T4F Performed By: #### L 500.4050, L100.0100 #### [facility] [address] [place], [address] Triglyceride [Mass/Vol] 184 mg/dL Normal [facility] Comment on above: Order Comment: DR. Helga RADFORD GETS EVERYTHINGDRJoseph MATUTE GETS CBCD CMPOrder Date: 06/15/24Order Info: [id number] - CMPOrder Date: 03/08/24Order Info: [id number] - LIPIDOrder Info: 6-3 - TSHOrder Info: [id number] - T4F Result Comment: The drugs N-Acetylcysteine and Metamizole may falsely depress this assay. Serum Triglycerides Reference Interval Normal <150 mg/dL Borderline high 150 - 199 mg/dL High 200 - 499 mg/dL Very High > or = 500 mg/dL Performed By: #### L 500.4050, L100.0100 #### [facility] [address] [place], [address] Low density lipoprotein (LDL ) cholesterol measurementOrdered By: Gaetano Tilley on 10-08-2024 Cholesterol in LDL [Mass/Vol] 224 mg/dL High 0-130 [facility] Lymphocytes Auto (Unsp spec) [#/Vol]Ordered By: Gaetano Tilley on 10-08-2024 Lymphocytes (Bld) [#/Vol] 2.32 10*3/uL 0.83-4.51 [facility] Lymphocytes/100 WBC Auto (Un sp spec)Ordered By: Gaetano Tilley on 10-08-2024 Lymphocytes/100 WBC (Bld) 47.0 % High 19-41 [facility] MCV (mean corpuscular volume ) determinationOrdered By: Gaetano Tilley on 10-08-2024 MCV (RBC) [Entitic vol] 98.1 fL 81-99 [facility] Mean corpuscular hemoglobin (MCH) determinationOrdered By: Gaetano Tilley on 10-08-2024 MCH (RBC) [Entitic mass] 32.5 pg High 27.0-32.0 [facility] Mean corpuscular hemoglobin concentration (MCHC) determinationOrdered By: Gaetano Tilley on 10-08-2024 MCHC (RBC) [Mass/Vol] 33.2 g/dL 32-36 [facility] Mean platelet volume determi nationOrdered By: Gaetano Tilley on 10-08-2024 Platelet mean volume (Bld) [Entitic vol] 9.9 fL 6.2-12.0 [facility] Monocyte percentageOrdered B y: Gaetano Tilley on 10-08-2024 Monocytes/100 WBC (Bld) 8.7 % 0-10 [facility] Neutrophil percentageOrdered By: Gaetano Tilley on 10-08-2024 Neutrophils/100 WBC (Bld) 42.3 % Low 47-70 [facility] Nucleated red blood cell per centageOrdered By: Gaetano Tilley on 10-08-2024 Nucleated RBC/100 WBC (Bld) [Ratio] 0 % 0-5 [facility] Platelet countOrdered By: Ting Tilley on 10-08-2024 Platelets (Bld) [#/Vol] 293 10*3/uL 150-450 [facility] Potassium measurementOrdered By: Gaetano Tilley on 10-08-2024 Potassium [Moles/Vol] 3.6 mmol/L 3.5-5.1 [facility] RBC Auto (Bld) [#/Vol]Ordere d By: Gaetano Tilley on 10-08-2024 RBC (Bld) [#/Vol] 4.21 10*6/uL 4.2-5.4 [facility] Serum anion gap measurementO rdered By: Gaetano Tilley on 10-08-2024 Anion gap [Moles/Vol] 8 mmol/L 5-15 [facility] Serum globulin measurementOr dered By: Gaetano Tilley on 10-08-2024 Globulin (S) [Mass/Vol] 3.0 g/dL 2.2-4.2 [facility] Serum or plasma alanine parkinson otransferase (ALT) measurementOrdered By: Gaetano Tilley on 10-08-2024 ALT [Catalytic activity/Vol] 20 U/L 13-56 [facility] Serum or plasma albumin lamine urement (mass/volume)Ordered By: Gaetano Tilley on 10-08-2024 Albumin [Mass/Vol] 4.0 g/dL 3.2-5.0 [facility] Serum or plasma alkaline heike sphatase measurementOrdered By: Gaetano Tilley on 10-08-2024 ALP [Catalytic activity/Vol] 59 U/L 45-117 [facility] Serum or plasma calcium lamine urement (mass/volume)Ordered By: Gaetano Tilley on 10-08-2024 Calcium [Mass/Vol] 9.4 mg/dL 8.5-10.1 [facility] Serum or plasma cholesterol measurement (mass/volume)Ordered By: Gaetano Tilley on 10-08-2024 Cholesterol [Mass/Vol] 341 mg/dL High <200 [facility] Comment on above: <200 mg/dL Desirable 200-240 mg/dL Borderline >240 mg/dL High Risk Serum or plasma creatinine m easurement (mass/volume)Ordered By: Gaetano Tilley on 10-08-2024 Creatinine [Mass/Vol] 0.74 mg/dL 0.55-1.02 [facility] Comment on above: The validity of the calculated GFR & GFRAA in patients over 70 years has not been determined. Clinical correlation is essential. Serum or plasma urea nitroge n measurement (mass/volume)Ordered By: Gaetano Tilley on 10-08-2024 Urea nitrogen [Mass/Vol] 12 mg/dL 7-18 [facility] Sodium levelOrdered By: Gaetano Tilley on 10-08-2024 Sodium [Moles/Vol] 141 mmol/L 136-145 [facility] T4 Free Directon 10-08-2024 T4 FREE DIRECT 0.95 ng/dL Normal 0.76-1.46 [facility] Comment on above: Order Comment: DR. Helga RADFORD GETS EVERYTHINGDR. MATUTE GETS CBCD CMPOrder Date: 06/15/24Order Info: 07 - CMPOrder Date: 03/08/24Order Info: [id number] - LIPIDOrder Info: 3 - TSHOrder Info: [id number] - T4F Performed By: #### L 100.0100, L500.4050 #### [facility] [address] [place], [place], [id number] TSH QnOrdered By: Gaetano grace on 10-08-2024 Thyroid Stimulating Hormone (TSH) 8.110 uIU/mL High 0.358-3.740 [facility] Thyroid Stim Hormone (TSH)on 10-08-2024 TSH 8.110 uIU/mL High 0.358-3.740 [facility] Comment on above: Order Comment: DR. Helga RADFORD GETS EVERYTHINGDR. MATUTE GETS CBCD CMPOrder Date: 06/15/24Order Info: 07 - CMPOrder Date: 03/08/24Order Info: [id number] - LIPIDOrder Info: 63 - TSHOrder Info: [id number] - T4F Performed By: #### L 100.0100, L500.4050 #### [facility] Laboratory [address] [place], [place], [address] Total proteinOrdered By: Venkat Tilley on 10-08-2024 Protein [Mass/Vol] 7.0 g/dL 6.4-8.2 [facility] Triglycerides measurementOrd ered By: Gaetano Tilley on 10-08-2024 Triglyceride [Mass/Vol] 184 mg/dL <199 [facility] Comment on above: The drugs N-Acetylcy steine and Metamizole may falsely depress this assay.Serum Triglycerides Reference Interval Normal <150 mg/dL Borderline high 150 - 199 mg/dL High 200 - 499 mg/dL Very High > or = 500 mg/dL Very low density lipoprotein (VLDL) cholesterol measurementOrdered By: Gaetano Tilley on 10-08-2024 VLDL Cholesterol 37 mg/dL 5-40 [facility] Vitamin D,25 Hydroxyon 10-08 Vitamin D 25-OH 31.8 ng/mL Normal [facility] Comment on above: Order Comment: DR. Helga RADFORD GETS EVERYTHINGDR. JUJU GETS CBCD CMPOrder Date: 06/15/24Order Info: [id number] - [id number] Result Comment: Libby min D 25(OH) Status Range Deficiency <20 ng/mL (50nmol/L) Insufficiency 20 - 30 ng/mL (50 - 75 nmol/L) Sufficiency 30 - 100 ng/mL (75 - 250 nmol/L) Toxicity >100 ng/mL (>250 nmol/L) Performed By: #### L 500.4050, L100.0100 #### [facility] [address] [place], [address] White blood cell (WBC) count Ordered By: Gaetano Tilley on 10-08-2024 WBC (Bld) [#/Vol] 4.9 10*3/uL 4.4-11.0 [facility] Laboratory - Chemistry and C hemistry - challengeOrdered By: Gaetano Tilley on 03-08-2024 CK [Catalytic activity/Vol] 50 U/L 26-192 [facility] Ferritin [Mass/Vol] 69 ng/mL 8-252 [facility] Magnesium [Mass/Vol] 2.1 mg/dL 1.6-2.6 [facility] No Panel InformationOrdered By: Gaetano Tilley on 03-08-2024 Thyroglobulin Antibody < 1.0 IU/mL 0.0-0.9 [facility] Comment on above: Thyroglobulin Antibo dy measured by Sohail CoulterMethodologyIt should be noted that the presence of thyroglobulinantibodies may not be pathogenic nor diagnostic, especiallyat very low levels. The assay home care scheduler has found thatfour percent of individuals without evidence of thyroiddisease or autoimmunity will have positive TgAb levels upto 4 IU/mL.Performed at: [facility] [id number] Director: Jamie Nixon PhD, Phone: [phone] Serum or plasma thyroperoxid ase antibody assay (units/volume)Ordered By: Gaetano Tilley on 03-08-2024 TPO Ab Qn 32 [IU]/mL 0-34 [facility] Thin prep Papanicolaou smear with manual screeningOrdered By: Gaetano Tilley on 03-08-2024 Thin prep Papanicolaou smear with manual screening 1.02 ng/dL 0.76-1.46 [facility] Absolute lymphocyte countOrd ered By: Gaetano Tilley on 02-24-2024 Lymphocytes Auto (Unsp spec) [#/Vol] 1.87 10*3/uL 0.83-4.51 [facility] Automated lymphocyte count a s percentage of total leukocytesOrdered By: Gaetano Tilley on 02-24-2024 Lymphocytes/100 WBC Auto (Unsp spec) 48.2 % 19-41 [facility] Basophil percentageOrdered B y: Gaetano Tilley on 02-24-2024 Basophils/100 WBC (Bld) 0.8 % 0-1 [facility] Bilirubin [Mass/Vol] 0.50 mg/dL 0.20-1.00 [facility] Comment on above: For patients on eltr ombopag therapy, use of [place] TBIL is not recommended. Chloride [Moles/Vol] 109 mmol/L 98-107 [facility] Cholesterol [Mass/Vol] 202 mg/dL <200 [facility] Comment on above: <200 mg/dL Desirable 200-240 mg/dL Borderline >240 mg/dL High Risk Eosinophils/100 WBC (Bld) 1.8 % 0-5 [facility] Glucose [Mass/Vol] 92 mg/dL 74-106 [facility] Hemoglobin (Bld) [Mass/Vol] 13.1 g/dL 12.0-15.0 [facility] Monocytes/100 WBC (Bld) 9.0 % 0-10 [facility] Neutrophils (Bld) [#/Vol] 1.6 10*3/uL 2.0-7.7 [facility] Neutrophils/100 WBC (Bld) 39.9 % 47-70 [facility] Potassium [Moles/Vol] 4.0 mmol/L 3.5-5.1 [facility] Protein [Mass/Vol] 6.7 g/dL 6.4-8.2 [facility] Sodium [Moles/Vol] 141 mmol/L 136-145 [facility] Triglyceride [Mass/Vol] 202 mg/dL <199 [facility] Comment on above: The drugs N-Acetylcy steine and Metamizole may falsely depress this assay.Serum Triglycerides Reference Interval Normal <150 mg/dL Borderline high 150 - 199 mg/dL High 200 - 499 mg/dL Very High > or = 500 mg/dL WBC (Bld) [#/Vol] 3.9 10*3/uL 4.4-11.0 [facility] Bilirubin Test strip Ql (U)O rdered By: Gaetano Tilley on 02-24-2024 Bilirubin Ql (U) Negative Negative [facility] Determination of erythrocyte mean corpuscular volume (MCV)Ordered By: Gaetano Tilley on 02-24-2024 MCV (RBC) [Entitic vol] 101.5 fL 81-99 [facility] Erythrocyte distribution wid th ratioOrdered By: Gaetano Tilley on 02-24-2024 Erythrocyte distribution width (RBC) [Ratio] 13.4 % 11.6-14.6 [facility] Erythrocyte distribution wid th standard deviationOrdered By: Gaetano Tilley on 02-24-2024 Erythrocyte distribution width (RBC) [Entitic vol] 50.5 fL 35.1-43.9 [facility] Hematocrit Auto (Bld) [Volum e fraction]Ordered By: Gaetano Tilley on 02-24-2024 Hematocrit (Bld) [Volume fraction] 40.6 % 37-47 [facility] Immature granulocytes/100 WB C Auto (Bld)Ordered By: Gaetano Tilley on 02-24-2024 Immature granulocytes/100 WBC (Bld) 0.300 % 0.0-0.9 [facility] Comment on above: IG% - Immature Granu locytes (promyelocytes, myelocytes and metamyelocytes) > 1% indicates that a LEFT SHIFT is Present. Ketones Test strip Ql (U)Ord ered By: Gaetano Tilley on 02-24-2024 Ketones Ql (U) Negative Negative [facility] Laboratory - Chemistry and C hemistry - challengeOrdered By: Gaetano Tilley on 02-24-2024 Albumin/Globulin [Mass ratio] 1.4 {ratio} 0.9-2.4 [facility] ALP [Catalytic activity/Vol] 51 U/L 45-117 [facility] ALT [Catalytic activity/Vol] 20 U/L 13-56 [facility] Cholesterol in HDL [Mass/Vol] 76 mg/dL >40 [facility] Comment on above: The drugs N-Acetylcy steine and Metamizole may falsely depress this assay. Reference Range HDL <40 mg/dL Low HDL Cholesterol HDL >or= 60 mg/dL High HDL Cholesterol Cholesterol in LDL [Mass/Vol] 86 mg/dL 0-130 [facility] CO2 [Moles/Vol] 26.0 mmol/L 21.0-32.0 [facility] Globulin (S) [Mass/Vol] 2.8 g/dL 2.2-4.2 [facility] Urea nitrogen/Creatinine [Mass ratio] 11.2 mg/mg 10-20 [facility] Laboratory - Hematology and Cell countsOrdered By: Gaetano Tilley on 02-24-2024 MCH (RBC) [Entitic mass] 32.8 pg 27.0-32.0 [facility] MCHC (RBC) [Mass/Vol] 32.3 g/dL 32-36 [facility] Nucleated RBC/100 WBC (Bld) [Ratio] 0 % 0-5 [facility] Platelet mean volume (Bld) [Entitic vol] 10.9 fL 6.2-12.0 [facility] Platelets (Bld) [#/Vol] 254 10*3/uL 150-450 [facility] Nitrite Test strip Ql (U)Ord ered By: Gaetano Tilley on 02-24-2024 Nitrite Ql (U) Negative Negative [facility] No Panel InformationOrdered By: Gaetano Tilley on 02-24-2024 Estimated GFR (MDRD) Amer 122 mL/min >60 [facility] Comment on above: GFR Calc Estimated GFR (MDRD) Non-Af Amer 101 mL/min >60 [facility] Comment on above: Non- GFR Calc Vitamin D 25-Hydroxy 35.1 ng/mL [facility] Comment on above: Vitamin D 25(OH) Sta tus Range Deficiency <20 ng/mL (50nmol/L) Insufficiency 20 - 30 ng/mL (50 - 75 nmol/L) Sufficiency 30 - 100 ng/mL (75 - 250 nmol/L) Toxicity >100 ng/mL (>250 nmol/L) VLDL Cholesterol 40 mg/dL 5-40 [facility] Protein Test strip Ql (U)Ord ered By: Gaetano Tilley on 02-24-2024 Protein Ql (U) Negative Negative [facility] RBC Auto (Bld) [#/Vol]Ordere d By: Gaetano Tilley on 02-24-2024 RBC (Bld) [#/Vol] 4.00 10*6/uL 4.2-5.4 [facility] Serum or plasma calcium lamine urement (mass/volume)Ordered By: Gaetano Tilley on 02-24-2024 Calcium [Mass/Vol] 9.2 mg/dL 8.5-10.1 [facility] Serum or plasma creatinine m easurement (mass/volume)Ordered By: Gaetano Tilley on 02-24-2024 Creatinine [Mass/Vol] 0.63 mg/dL 0.55-1.02 [facility] Comment on above: The validity of the calculated GFR & GFRAA in patients over 70 years has not been determined. Clinical correlation is essential. Serum or plasma thyroid stim ulating hormone (TSH) measurement (units/volume)Ordered By: Gaetano Tilley on 02-24-2024 TSH Qn 4.65 uIU/mL 0.358-3.74 [facility] Serum or plasma urea nitroge n measurement (mass/volume)Ordered By: Gaetano Tilley on 02-24-2024 Urea nitrogen [Mass/Vol] 7 mg/dL 7-18 [facility] Thin prep Papanicolaou smear with manual screeningOrdered By: Gaetano Tilley on 03-29-2024 Thin prep Papanicolaou smear with manual screening 3.9 g/dL 3.2-5.0 [facility] Thin prep Papanicolaou smear with manual screening 20 U/L 15-37 [facility] Thin prep Papanicolaou smear with manual screening 6 5-15 [facility] Urine blood detectionOrdered By: Gaetano Tilley on 02-24-2024 RBC Ql (U) Negative Negative [facility] Urine clarityOrdered By: Venkat Tilley on 02-24-2024 Clarity (U) Clear Clear [facility] Urine color determinationOrd ered By: Gaetano Tilley on 02-24-2024 Color (U) Yellow Yellow [facility] Urine glucose detectionOrder ed By: Gaetano Tilley on 02-24-2024 Glucose Ql (U) Normal mg/dl Normal [facility] Urine leukocyte esterase det ection by dipstickOrdered By: Gaetano Tilley on 02-24-2024 Leukocyte esterase Test strip Ql (U) Negative Negative [facility] Urine pHOrdered By: Gaetano wilkerson on 02-24-2024 pH (U) 7.0 [pH] 5.0 - 8.0 [facility] Urine specific gravity measu rementOrdered By: Gaetano Tilley on 02-24-2024 Specific gravity (U) [Rel density] 1.005 1.002-1.030 [facility] Urine urobilinogen measureme ntOrdered By: Gaetano Tilley on 02-24-2024 Urobilinogen Ql (U) Normal mg/dl Normal [facility] Absolute lymphocyte countOrd ered By: Gaetano Tilley on 12-13-2023 Lymphocytes Auto (Unsp spec) [#/Vol] 3.15 10*3/uL 0.83-4.51 [facility] Automated lymphocyte count a s percentage of total leukocytesOrdered By: Gaetano Tilley on 12-13-2023 Lymphocytes/100 WBC Auto (Unsp spec) 54.5 % 19-41 [facility] Basophil percentageOrdered B y: Gaetano Tilley on 12-13-2023 Basophil percentage 0-5 SEEN /hpf 0-5 [facility] Basophils/100 WBC (Bld) 0.5 % 0-1 [facility] Bilirubin [Mass/Vol] 0.40 mg/dL 0.20-1.00 [facility] Comment on above: For patients on eltr ombopag therapy, use of [place] TBIL is not recommended. Chloride [Moles/Vol] 109 mmol/L 98-107 [facility] Cholesterol [Mass/Vol] 343 mg/dL <200 [facility] Comment on above: <200 mg/dL Desirable 200-240 mg/dL Borderline >240 mg/dL High Risk Eosinophils/100 WBC (Bld) 0.9 % 0-5 [facility] Glucose [Mass/Vol] 90 mg/dL 74-106 [facility] Hemoglobin (Bld) [Mass/Vol] 12.4 g/dL 12.0-15.0 [facility] Monocytes/100 WBC (Bld) 9.3 % 0-10 [facility] Neutrophils (Bld) [#/Vol] 2.0 10*3/uL 2.0-7.7 [facility] Neutrophils/100 WBC (Bld) 34.6 % 47-70 [facility] Potassium [Moles/Vol] 3.5 mmol/L 3.5-5.1 [facility] Protein [Mass/Vol] 6.4 g/dL 6.4-8.2 [facility] Sodium [Moles/Vol] 140 mmol/L 136-145 [facility] Triglyceride [Mass/Vol] 169 mg/dL <199 [facility] Comment on above: The drugs N-Acetylcy steine and Metamizole may falsely depress this assay.Serum Triglycerides Reference Interval Normal <150 mg/dL Borderline high 150 - 199 mg/dL High 200 - 499 mg/dL Very High > or = 500 mg/dL WBC (Bld) [#/Vol] 5.8 10*3/uL 4.4-11.0 [facility] Bilirubin Test strip Ql (U)O rdered By: Gaetano Tilley on 12-13-2023 Bilirubin Ql (U) Negative Negative [facility] Determination of erythrocyte mean corpuscular volume (MCV)Ordered By: Gaetano Tilley on 12-13-2023 MCV (RBC) [Entitic vol] 102.9 fL 81-99 [facility] Erythrocyte distribution wid th ratioOrdered By: Gaetano Tilley on 12-13-2023 Erythrocyte distribution width (RBC) [Ratio] 14.6 % 11.6-14.6 [facility] Erythrocyte distribution wid th standard deviationOrdered By: Gaetano Tilley on 12-13-2023 Erythrocyte distribution width (RBC) [Entitic vol] 55.5 fL 35.1-43.9 [facility] Hematocrit Auto (Bld) [Volum e fraction]Ordered By: Gaetano Tilley on 12-13-2023 Hematocrit (Bld) [Volume fraction] 39.5 % 37-47 [facility] High density lipoprotein (HD L) measurementOrdered By: Gaetano Tilley on 12-13-2023 Cholesterol in HDL (Body fld) [Mass/Vol] 77 mg/dL >40 [facility] Comment on above: The drugs N-Acetylcy steine and Metamizole may falsely depress this assay. Reference Range HDL <40 mg/dL Low HDL Cholesterol HDL >or= 60 mg/dL High HDL Cholesterol Immature granulocytes/100 WB C Auto (Bld)Ordered By: Gaetano Tilley on 12-13-2023 Immature granulocytes/100 WBC (Bld) 0.200 % 0.0-0.9 [facility] Comment on above: IG% - Immature Granu locytes (promyelocytes, myelocytes and metamyelocytes) > 1% indicates that a LEFT SHIFT is Present. Ketones Test strip Ql (U)Ord ered By: Gaetano Tilley on 12-13-2023 Ketones Ql (U) Negative Negative [facility] Laboratory - Chemistry and C hemistry - challengeOrdered By: Gaetano Tilley on 12-13-2023 Albumin/Globulin [Mass ratio] 1.3 {ratio} 0.9-2.4 [facility] ALP [Catalytic activity/Vol] 49 U/L 45-117 [facility] ALT [Catalytic activity/Vol] 21 U/L 13-56 [facility] CO2 [Moles/Vol] 23.0 mmol/L 21.0-32.0 [facility] Globulin (S) [Mass/Vol] 2.8 g/dL 2.2-4.2 [facility] Magnesium [Mass/Vol] 2.4 mg/dL 1.6-2.6 [facility] Urea nitrogen/Creatinine [Mass ratio] 22.3 mg/mg 10-20 [facility] Laboratory - Hematology and Cell countsOrdered By: Gaetano Tilley on 12-13-2023 MCH (RBC) [Entitic mass] 32.3 pg 27.0-32.0 [facility] MCHC (RBC) [Mass/Vol] 31.4 g/dL 32-36 [facility] Nucleated RBC/100 WBC (Bld) [Ratio] 0 % 0-5 [facility] Platelets (Bld) [#/Vol] 237 10*3/uL 150-450 [facility] Low density lipoprotein (LDL ) cholesterol measurementOrdered By: Gaetano Tilley on 12-13-2023 Cholesterol in LDL (Body fld) [Moles/Vol] 232 mg/dL 0-130 [facility] Mucus LM Ql (Urine sed)Order ed By: Gaetano Tilley on 12-13-2023 Mucus Ql (Urine sed) 0 SEEN /hpf [facility] Nitrite Test strip Ql (U)Ord ered By: Gaetano Tilley on 12-13-2023 Nitrite Ql (U) Negative Negative [facility] No Panel InformationOrdered By: Gaetano Tilley on 12-13-2023 Estimated GFR (MDRD) Amer 112 mL/min >60 [facility] Comment on above: GFR Calc Estimated GFR (MDRD) Non-Af Amer 93 mL/min >60 [facility] Comment on above: Non- GFR Calc Urine RBC 0 SEEN /hpf 0-5 [facility] Vitamin D 25-Hydroxy 37.7 ng/mL [facility] Comment on above: Vitamin D 25(OH) Sta tus Range Deficiency <20 ng/mL (50nmol/L) Insufficiency 20 - 30 ng/mL (50 - 75 nmol/L) Sufficiency 30 - 100 ng/mL (75 - 250 nmol/L) Toxicity >100 ng/mL (>250 nmol/L) Platelet mean volume Garett-Ec ker (Bld) [Entitic vol]Ordered By: Gaetano Tilley on 12-13-2023 Platelet mean volume (Bld) [Entitic vol] 10.4 fL 6.2-12.0 [facility] Protein Test strip Ql (U)Ord ered By: Gaetano Tilley on 12-13-2023 Protein Ql (U) Negative Negative [facility] RBC Auto (Bld) [#/Vol]Ordere d By: Gaetano Tilley on 12-13-2023 RBC (Bld) [#/Vol] 3.84 10*6/uL 4.2-5.4 [facility] Serum or plasma calcium lamine urement (mass/volume)Ordered By: Gaetano Tilley on 12-13-2023 Calcium [Mass/Vol] 9.3 mg/dL 8.5-10.1 [facility] Serum or plasma creatinine m easurement (mass/volume)Ordered By: Gaetano Tilley on 12-13-2023 Creatinine [Mass/Vol] 0.67 mg/dL 0.55-1.02 [facility] Comment on above: The validity of the calculated GFR & GFRAA in patients over 70 years has not been determined. Clinical correlation is essential. Serum or plasma thyroid stim ulating hormone (TSH) measurement (units/volume)Ordered By: Gaetano Tilley on 12-13-2023 TSH Qn 3.86 uIU/mL 0.358-3.74 [facility] Serum or plasma urea nitroge n measurement (mass/volume)Ordered By: Gaetano Tilley on 12-13-2023 Urea nitrogen [Mass/Vol] 15 mg/dL 7-18 [facility] Squamous epithelial cells de tection in urine sediment by light microscopyOrdered By: Gaetano Tilley on 12-13-2023 Epithelial cells.squamous LM Ql (Urine sed) 0 SEEN /hpf 5-10 [facility] Thin prep Papanicolaou smear with manual screeningOrdered By: Gaetano Tilley on 12-13-2023 Thin prep Papanicolaou smear with manual screening 3.6 g/dL 3.2-5.0 [facility] Thin prep Papanicolaou smear with manual screening 16 U/L 15-37 [facility] Thin prep Papanicolaou smear with manual screening 8 5-15 [facility] Urine blood detectionOrdered By: Gaetano Tilley on 12-13-2023 RBC Ql (U) Negative Negative [facility] Urine clarityOrdered By: Venkat Tilley on 12-13-2023 Clarity (U) Sl. Cloudy Clear [facility] Urine color determinationOrd ered By: Gaetano Tilley on 12-13-2023 Color (U) Yellow Yellow [facility] Urine glucose detectionOrder ed By: Gaetano Tilley on 12-13-2023 Glucose Ql (U) Normal mg/dl Normal [facility] Urine leukocyte esterase det ection by dipstickOrdered By: Gaetano Tilley on 12-13-2023 Leukocyte esterase Test strip Ql (U) 25 /ul Negative [facility] Urine pHOrdered By: Gaetano wilkerson on 12-13-2023 pH (U) 6.5 [pH] 5.0 - 8.0 [facility] Urine sediment bacteria coun t by microscopy (number/high power field)Ordered By: Gaetano Tilley on 12-13-2023 Bacteria LM.HPF (Urine sed) [#/Area] 0 /[HPF] None Seen [facility] Urine specific gravity measu rementOrdered By: Gaetano Tilley on 12-13-2023 Specific gravity (U) [Rel density] 1.010 1.002-1.030 [facility] Urine urobilinogen measureme ntOrdered By: Gaetano Tilley on 12-13-2023 Urobilinogen Ql (U) Normal mg/dl Normal [facility] Very low density lipoprotein (VLDL) cholesterol measurementOrdered By: Gaetano Tilley on 12-13-2023 Cholesterol in VLDL Calc [Moles/Vol] 34 mg/dL 5-40 [facility] Absolute lymphocyte countOrd ered By: Sara Matute on 11-25-2023 Lymphocytes Auto (Unsp spec) [#/Vol] 0.63 10*3/uL 0.83-4.51 [facility] Basophil percentageOrdered B y: Sara Matute on 11-25-2023 Basophils/100 WBC (Bld) 0.3 % 0-1 [facility] Bilirubin [Mass/Vol] 0.60 mg/dL 0.20-1.00 [facility] Comment on above: For patients on eltr ombopag therapy, use of [place] TBIL is not recommended. Chloride [Moles/Vol] 102 mmol/L 98-107 [facility] Eosinophils/100 WBC (Bld) 0.2 % 0-5 [facility] Glucose [Mass/Vol] 110 mg/dL 74-106 [facility] Comment on above: Fasting Glucose resu lt from 100 to 125 mg/dL suggests IMPAIRED HOMEOSTASIS per A.D.A. criteria. Neutrophils (Bld) [#/Vol] 5.4 10*3/uL 2.0-7.7 [facility] Neutrophils/100 WBC (Bld) 83.8 % 47-70 [facility] Potassium [Moles/Vol] 3.8 mmol/L 3.5-5.1 [facility] Protein [Mass/Vol] 7.3 g/dL 6.4-8.2 [facility] Sodium [Moles/Vol] 138 mmol/L 136-145 [facility] WBC (Bld) [#/Vol] 6.4 10*3/uL 4.4-11.0 [facility] Blood erythrocytes count (nu mber/volume)Ordered By: Sara Matute on 11-25-2023 RBC (Bld) [#/Vol] 4.10 10*6/uL 4.2-5.4 [facility] Blood hemoglobin measurement (mass/volume)Ordered By: Sara Matute on 11-25-2023 Hemoglobin (Bld) [Mass/Vol] 13.3 g/dL 12.0-15.0 [facility] Blood lymphocytes/100 leukoc ytesOrdered By: Sara Matute on 11-25-2023 Lymphocytes/100 WBC (Bld) 9.8 % 19-41 [facility] Blood monocytes/100 leukocyt esOrdered By: Sara Matute on 11-25-2023 Monocytes/100 WBC (Bld) 5.6 % 0-10 [facility] Blood platelet mean volumeOr dered By: Sara Matute on 11-25-2023 Platelet mean volume (Bld) [Entitic vol] 10.5 fL 6.2-12.0 [facility] Determination of erythrocyte mean corpuscular volume (MCV)Ordered By: Sara Matute on 11-25-2023 MCV (RBC) [Entitic vol] 100.5 fL 81-99 [facility] Hematocrit Auto (Bld) [Volum e fraction]Ordered By: Sara Matute on 11-25-2023 Hematocrit (Bld) [Volume fraction] 41.2 % 37-47 [facility] - Chemistry and C hemistry - challengeOrdered By: Sara Matute on 11-25-2023 ALP [Catalytic activity/Vol] 54 U/L 45-117 [facility] ALT [Catalytic activity/Vol] 19 U/L 13-56 [facility] CO2 [Moles/Vol] 26.0 mmol/L 21.0-32.0 [facility] Globulin (S) [Mass/Vol] 3.7 g/dL 2.2-4.2 [facility] Urea nitrogen/Creatinine [Mass ratio] 12.5 mg/mg 10-20 [facility] - Hematology and Cell countsOrdered By: Sara Matute on 11-25-2023 Erythrocyte distribution width (RBC) [Entitic vol] 51.8 fL 35.1-43.9 [facility] Erythrocyte distribution width (RBC) [Ratio] 14.1 % 11.6-14.6 [facility] Immature granulocytes/100 WBC (Bld) 0.300 % 0.0-0.9 [facility] Comment on above: IG% - Immature Granu locytes (promyelocytes, myelocytes and metamyelocytes) > 1% indicates that a LEFT SHIFT is Present. MCH (RBC) [Entitic mass] 32.4 pg 27.0-32.0 [facility] Nucleated RBC/100 WBC (Bld) [Ratio] 0 % 0-5 [facility] MCHC Auto (RBC) [Mass/Vol]Or dered By: Sara Matute on 11-25-2023 MCHC (RBC) [Mass/Vol] 32.3 g/dL 32-36 [facility] No Panel InformationOrdered By: Sara Matute on 11-25-2023 Estimated GFR (MDRD) Amer 105 mL/min >60 [facility] Comment on above: GFR Calc Estimated GFR (MDRD) Non-Af Amer 86 mL/min >60 [facility] Comment on above: Non- GFR Calc Platelets bldOrdered By: Deuce Matute on 11-25-2023 Platelets (Bld) [#/Vol] 227 10*3/uL 150-450 [facility] Serum or plasma albumin lamine urement (mass/volume)Ordered By: Sara Matute on 11-25-2023 Albumin [Mass/Vol] 3.6 g/dL 3.2-5.0 [facility] Serum or plasma albumin/glob ulin mass ratioOrdered By: Sara Matute on 11-25-2023 Albumin/Globulin [Mass ratio] 1.0 {ratio} 0.9-2.4 [facility] Serum or plasma calcium lamine urement (mass/volume)Ordered By: Sara Matute on 11-25-2023 Calcium [Mass/Vol] 8.9 mg/dL 8.5-10.1 [facility] Serum or plasma creatinine m easurement (mass/volume)Ordered By: Sara Matute on 11-25-2023 Creatinine [Mass/Vol] 0.72 mg/dL 0.55-1.02 [facility] Comment on above: The validity of the calculated GFR & GFRAA in patients over 70 years has not been determined. Clinical correlation is essential. Serum or plasma urea nitroge n measurement (mass/volume)Ordered By: Sara Matute on 11-25-2023 Urea nitrogen [Mass/Vol] 9 mg/dL 7-18 [facility] Thin prep Papanicolaou smear with manual screeningOrdered By: [facility] on 11-25-2023 Thin prep Papanicolaou smear with manual screening 23 U/L 15-37 [facility] Thin prep Papanicolaou smear with manual screening 10 5-15 [facility] Absolute lymphocyte countOrd ered By: Sara Matute on 08-24-2023 Lymphocytes Auto (Unsp spec) [#/Vol] 1.77 10*3/uL 0.83-4.51 [facility] Basophil percentageOrdered B y: Sara Matute on 08-24-2023 Basophils/100 WBC (Bld) 0.7 % 0-1 [facility] Bilirubin [Mass/Vol] 0.50 mg/dL 0.20-1.00 [facility] Comment on above: For patients on eltr ombopag therapy, use of [place] TBIL is not recommended. Chloride [Moles/Vol] 109 mmol/L 98-107 [facility] Eosinophils/100 WBC (Bld) 1.3 % 0-5 [facility] Glucose [Mass/Vol] 89 mg/dL 74-106 [facility] Neutrophils (Bld) [#/Vol] 2.4 10*3/uL 2.0-7.7 [facility] Neutrophils/100 WBC (Bld) 51.1 % 47-70 [facility] Potassium [Moles/Vol] 4.0 mmol/L 3.5-5.1 [facility] Protein [Mass/Vol] 6.7 g/dL 6.4-8.2 [facility] Sodium [Moles/Vol] 140 mmol/L 136-145 [facility] WBC (Bld) [#/Vol] 4.6 10*3/uL 4.4-11.0 [facility] Blood erythrocytes count (nu mber/volume)Ordered By: Sara Matute on 08-24-2023 RBC (Bld) [#/Vol] 4.09 10*6/uL 4.2-5.4 [facility] Blood hemoglobin measurement (mass/volume)Ordered By: Sara Matute on 08-24-2023 Hemoglobin (Bld) [Mass/Vol] 13.5 g/dL 12.0-15.0 [facility] Blood lymphocytes/100 leukoc ytesOrdered By: Sara Matute on 08-24-2023 Lymphocytes/100 WBC (Bld) 38.6 % 19-41 [facility] Blood monocytes/100 leukocyt esOrdered By: Sara Matute on 08-24-2023 Monocytes/100 WBC (Bld) 8.3 % 0-10 [facility] Blood platelet mean volumeOr dered By: Sara Matute on 08-24-2023 Platelet mean volume (Bld) [Entitic vol] 10.1 fL 6.2-12.0 [facility] Determination of erythrocyte mean corpuscular volume (MCV)Ordered By: Sara Matute on 08-24-2023 MCV (RBC) [Entitic vol] 102.9 fL 81-99 [facility] Hematocrit Auto (Bld) [Volum e fraction]Ordered By: Sara Matute on 08-24-2023 Hematocrit (Bld) [Volume fraction] 42.1 % 37-47 [facility] Laboratory - Chemistry and C hemistry - challengeOrdered By: Sara Matute on 08-24-2023 ALP [Catalytic activity/Vol] 58 U/L 45-117 [facility] ALT [Catalytic activity/Vol] 27 U/L 13-56 [facility] CO2 [Moles/Vol] 27.0 mmol/L 21.0-32.0 [facility] Globulin (S) [Mass/Vol] 3.0 g/dL 2.2-4.2 [facility] Urea nitrogen/Creatinine [Mass ratio] 14.7 mg/mg 10-20 [facility] Laboratory - Hematology and Cell countsOrdered By: Sara Matute on 08-24-2023 Erythrocyte distribution width (RBC) [Entitic vol] 50.4 fL 35.1-43.9 [facility] Erythrocyte distribution width (RBC) [Ratio] 13.2 % 11.6-14.6 [facility] Immature granulocytes/100 WBC (Bld) 0.000 % 0.0-0.9 [facility] Comment on above: IG% - Immature Granu locytes (promyelocytes, myelocytes and metamyelocytes) > 1% indicates that a LEFT SHIFT is Present. MCH (RBC) [Entitic mass] 33.0 pg 27.0-32.0 [facility] Nucleated RBC/100 WBC (Bld) [Ratio] 0 % 0-5 [facility] MCHC Auto (RBC) [Mass/Vol]Or dered By: Sara Matute on 08-24-2023 MCHC (RBC) [Mass/Vol] 32.1 g/dL 32-36 [facility] No Panel InformationOrdered By: Sara Matute on 08-24-2023 Estimated GFR (MDRD) Amer 126 mL/min >60 [facility] Comment on above: GFR Calc Estimated GFR (MDRD) Non-Af Amer 104 mL/min >60 [facility] Comment on above: Non- GFR Calc Platelets bldOrdered By: Deuce Matute on 08-24-2023 Platelets (Bld) [#/Vol] 241 10*3/uL 150-450 [facility] Serum or plasma albumin lamine urement (mass/volume)Ordered By: Sara Matute on 08-24-2023 Albumin [Mass/Vol] 3.7 g/dL 3.2-5.0 [facility] Serum or plasma albumin/glob ulin mass ratioOrdered By: Sara Matute on 08-24-2023 Albumin/Globulin [Mass ratio] 1.2 {ratio} 0.9-2.4 [facility] Serum or plasma calcium lamine urement (mass/volume)Ordered By: Sara Matute on 08-24-2023 Calcium [Mass/Vol] 8.8 mg/dL 8.5-10.1 [facility] Serum or plasma creatinine m easurement (mass/volume)Ordered By: Sara Matute on 08-24-2023 Creatinine [Mass/Vol] 0.61 mg/dL 0.55-1.02 [facility] Comment on above: The validity of the calculated GFR & GFRAA in patients over 70 years has not been determined. Clinical correlation is essential. Serum or plasma urea nitroge n measurement (mass/volume)Ordered By: Sara Matute on 08-24-2023 Urea nitrogen [Mass/Vol] 9 mg/dL 7-18 [facility] Thin prep Papanicolaou smear with manual screeningOrdered By: Sara Matute on 08-24-2023 Thin prep Papanicolaou smear with manual screening 20 U/L 15-37 [facility] Thin prep Papanicolaou smear with manual screening 4 5-15 [facility] Absolute lymphocyte countOrd ered By: Dr. Matute on 04-27-2023 Lymphocytes Auto (Unsp spec) [#/Vol] 1.75 10*3/uL 0.83-4.51 [facility] Basophil percentageOrdered B y: Dr. Matute on 04-27-2023 Basophils/100 WBC (Bld) 0.5 % 0-1 [facility] Bilirubin [Mass/Vol] 0.60 mg/dL 0.20-1.00 [facility] Comment on above: For patients on eltr ombopag therapy, use of [place] TBIL is not recommended. Chloride [Moles/Vol] 108 mmol/L 98-107 [facility] Eosinophils/100 WBC (Bld) 1.6 % 0-5 [facility] Glucose [Mass/Vol] 86 mg/dL 74-106 [facility] Neutrophils (Bld) [#/Vol] 1.8 10*3/uL 2.0-7.7 [facility] Neutrophils/100 WBC (Bld) 45.3 % 47-70 [facility] Potassium [Moles/Vol] 4.0 mmol/L 3.5-5.1 [facility] Protein [Mass/Vol] 6.8 g/dL 6.4-8.2 [facility] Sodium [Moles/Vol] 143 mmol/L 136-145 [facility] WBC (Bld) [#/Vol] 3.9 10*3/uL 4.4-11.0 [facility] Blood erythrocytes count (nu mber/volume)Ordered By: Dr. Matute on 04-27-2023 RBC (Bld) [#/Vol] 4.15 10*6/uL 4.2-5.4 [facility] Blood hemoglobin measurement (mass/volume)Ordered By: Dr. Matute on 04-27-2023 Hemoglobin (Bld) [Mass/Vol] 13.3 g/dL 12.0-15.0 [facility] Blood lymphocytes/100 leukoc ytesOrdered By: Dr. Matute on 04-27-2023 Lymphocytes/100 WBC (Bld) 45.3 % 19-41 [facility] Blood monocytes/100 leukocyt esOrdered By: Dr. Matute on 04-27-2023 Monocytes/100 WBC (Bld) 7.0 % 0-10 [facility] Blood platelet mean volumeOr dered By: Dr. Matute on 04-27-2023 Platelet mean volume (Bld) [Entitic vol] 10.5 fL 6.2-12.0 [facility] Determination of erythrocyte mean corpuscular volume (MCV)Ordered By: Dr. Matute on 04-27-2023 MCV (RBC) [Entitic vol] 100.7 fL 81-99 [facility] Hematocrit Auto (Bld) [Volum e fraction]Ordered By: Dr. Matute on 05-31-2023 Hematocrit (Bld) [Volume fraction] 41.8 % 37-47 [facility] Laboratory - Chemistry and C hemistry - challengeOrdered By: Dr. Matute on 04-27-2023 ALP [Catalytic activity/Vol] 66 U/L 45-117 [facility] ALT [Catalytic activity/Vol] 23 U/L 13-56 [facility] CO2 [Moles/Vol] 28.0 mmol/L 21.0-32.0 [facility] Globulin (S) [Mass/Vol] 2.9 g/dL 2.2-4.2 [facility] Urea nitrogen/Creatinine [Mass ratio] 12.3 mg/mg 10-20 [facility] Laboratory - Hematology and Cell countsOrdered By: Dr. Matute on 04-27-2023 Erythrocyte distribution width (RBC) [Entitic vol] 50.2 fL 35.1-43.9 [facility] Erythrocyte distribution width (RBC) [Ratio] 13.5 % 11.6-14.6 [facility] Immature granulocytes/100 WBC (Bld) 0.300 % 0.0-0.9 [facility] Comment on above: IG% - Immature Granu locytes (promyelocytes, myelocytes and metamyelocytes) > 1% indicates that a LEFT SHIFT is Present. MCH (RBC) [Entitic mass] 32.0 pg 27.0-32.0 [facility] Nucleated RBC/100 WBC (Bld) [Ratio] 0 % 0-5 [facility] MCHC Auto (RBC) [Mass/Vol]Or dered By: Dr. Matute on 04-27-2023 MCHC (RBC) [Mass/Vol] 31.8 g/dL 32-36 [facility] No Panel InformationOrdered By: Dr. Matute on 04-27-2023 Estimated GFR (MDRD) Amer 118 mL/min >60 [facility] Comment on above: GFR Calc Estimated GFR (MDRD) Non-Af Amer 97 mL/min >60 [facility] Comment on above: Non- GFR Calc Platelets bldOrdered By: Dr. Matute on 04-27-2023 Platelets (Bld) [#/Vol] 245 10*3/uL 150-450 [facility] Serum or plasma albumin lamine urement (mass/volume)Ordered By: Dr. Matute on 04-27-2023 Albumin [Mass/Vol] 3.9 g/dL 3.2-5.0 [facility] Serum or plasma albumin/glob ulin mass ratioOrdered By: Dr. Matute on 04-27-2023 Albumin/Globulin [Mass ratio] 1.3 {ratio} 0.9-2.4 [facility] Serum or plasma calcium lamine urement (mass/volume)Ordered By: Dr. Matute on 04-27-2023 Calcium [Mass/Vol] 9.3 mg/dL 8.5-10.1 [facility] Serum or plasma creatinine m easurement (mass/volume)Ordered By: Dr. Matute on 04-27-2023 Creatinine [Mass/Vol] 0.65 mg/dL 0.55-1.02 [facility] Comment on above: The validity of the calculated GFR & GFRAA in patients over 70 years has not been determined. Clinical correlation is essential. Serum or plasma urea nitroge n measurement (mass/volume)Ordered By: Dr. Matute on 04-27-2023 Urea nitrogen [Mass/Vol] 8 mg/dL 7-18 [facility] Thin prep Papanicolaou smear with manual screeningOrdered By: Dr. Matute on 04-27-2023 Thin prep Papanicolaou smear with manual screening 25 U/L 15-37 [facility] Thin prep Papanicolaou smear with manual screening 7 5-15 [facility] Basophil percentageOrdered B y: Dr. Tilley on 04-22-2023 Chloride [Moles/Vol] 104 mmol/L 98-107 [facility] Glucose [Mass/Vol] 93 mg/dL 74-106 [facility] Potassium [Moles/Vol] 3.9 mmol/L 3.5-5.1 [facility] Sodium [Moles/Vol] 139 mmol/L 136-145 [facility] Laboratory - Chemistry and C hemistry - challengeOrdered By: Dr. Tilley on 04-22-2023 CO2 [Moles/Vol] 27.0 mmol/L 21.0-32.0 [facility] Urea nitrogen/Creatinine [Mass ratio] 14.5 mg/mg 10-20 [facility] No Panel InformationOrdered By: Dr. Tilley on 04-22-2023 Estimated GFR (MDRD) Amer 99 mL/min >60 [facility] Comment on above: GFR Calc Estimated GFR (MDRD) Non-Af Amer 81 mL/min >60 [facility] Comment on above: Non- GFR Calc Serum or plasma calcium lamine urement (mass/volume)Ordered By: Dr. Tilley on 04-22-2023 Calcium [Mass/Vol] 9.6 mg/dL 8.5-10.1 [facility] Serum or plasma creatinine m easurement (mass/volume)Ordered By: Dr. Tilley on 04-22-2023 Creatinine [Mass/Vol] 0.76 mg/dL 0.55-1.02 [facility] Comment on above: The validity of the calculated GFR & GFRAA in patients over 70 years has not been determined. Clinical correlation is essential. Serum or plasma urea nitroge n measurement (mass/volume)Ordered By: Dr. Tilley on 04-22-2023 Urea nitrogen [Mass/Vol] 11 mg/dL 7-18 [facility] Thin prep Papanicolaou smear with manual screeningOrdered By: Dr. Tilley on 04-22-2023 Thin prep Papanicolaou smear with manual screening 8 5-15 [facility] Basophil percentageOrdered B y: Dr. Nova on 04-15-2023 Basophil percentage < 0.9 mg/dL 0.55-1.02 [facility] No Panel InformationOrdered By: Dr. Nova on 04-15-2023 Bedside Estimated GFR (eGFR) > 60.0000 mL/min >60 [facility] Absolute lymphocyte countOrd ered By: Dr. Matute on 01-31-2023 Lymphocytes Auto (Unsp spec) [#/Vol] 1.56 10*3/uL 0.83-4.51 [facility] Basophil percentageOrdered B y: Dr. Matute on 01-31-2023 Basophils/100 WBC (Bld) 0.8 % 0-1 [facility] Bilirubin [Mass/Vol] 0.50 mg/dL 0.20-1.00 [facility] Comment on above: For patients on eltr ombopag therapy, use of [place] TBIL is not recommended. Chloride [Moles/Vol] 105 mmol/L 98-107 [facility] Eosinophils/100 WBC (Bld) 1.0 % 0-5 [facility] Glucose [Mass/Vol] 96 mg/dL 74-106 [facility] Neutrophils (Bld) [#/Vol] 1.8 10*3/uL 2.0-7.7 [facility] Neutrophils/100 WBC (Bld) 45.9 % 47-70 [facility] Potassium [Moles/Vol] 3.8 mmol/L 3.5-5.1 [facility] Protein [Mass/Vol] 6.9 g/dL 6.4-8.2 [facility] Sodium [Moles/Vol] 140 mmol/L 136-145 [facility] WBC (Bld) [#/Vol] 4.0 10*3/uL 4.4-11.0 [facility] Blood erythrocytes count (nu mber/volume)Ordered By: Dr. Matute on 01-31-2023 RBC (Bld) [#/Vol] 4.22 10*6/uL 4.2-5.4 [facility] Blood hemoglobin measurement (mass/volume)Ordered By: Dr. Matute on 01-31-2023 Hemoglobin (Bld) [Mass/Vol] 13.6 g/dL 12.0-15.0 [facility] Blood lymphocytes/100 leukoc ytesOrdered By: Dr. Matute on 01-31-2023 Lymphocytes/100 WBC (Bld) 39.4 % 19-41 [facility] Blood monocytes/100 leukocyt esOrdered By: Dr. Matute on 01-31-2023 Monocytes/100 WBC (Bld) 12.6 % 0-10 [facility] Blood platelet mean volumeOr dered By: Dr. Matute on 01-31-2023 Platelet mean volume (Bld) [Entitic vol] 10.1 fL 6.2-12.0 [facility] Determination of erythrocyte mean corpuscular volume (MCV)Ordered By: Dr. Matute on 01-31-2023 MCV (RBC) [Entitic vol] 100.5 fL 81-99 [facility] Hematocrit Auto (Bld) [Volum e fraction]Ordered By: Dr. Matute on 01-31-2023 Hematocrit (Bld) [Volume fraction] 42.4 % 37-47 [facility] Laboratory - Chemistry and C hemistry - challengeOrdered By: Dr. Matute on 01-31-2023 ALP [Catalytic activity/Vol] 62 U/L 45-117 [facility] ALT [Catalytic activity/Vol] 22 U/L 13-56 [facility] CO2 [Moles/Vol] 29.0 mmol/L 21.0-32.0 [facility] Globulin (S) [Mass/Vol] 3.0 g/dL 2.2-4.2 [facility] Urea nitrogen/Creatinine [Mass ratio] 13.8 mg/mg 10-20 [facility] Laboratory - Hematology and Cell countsOrdered By: Dr. Matute on 01-31-2023 Erythrocyte distribution width (RBC) [Entitic vol] 52.0 fL 35.1-43.9 [facility] Erythrocyte distribution width (RBC) [Ratio] 14.0 % 11.6-14.6 [facility] Immature granulocytes/100 WBC (Bld) 0.300 % 0.0-0.9 [facility] Comment on above: IG% - Immature Granu locytes (promyelocytes, myelocytes and metamyelocytes) > 1% indicates that a LEFT SHIFT is Present. MCH (RBC) [Entitic mass] 32.2 pg 27.0-32.0 [facility] Nucleated RBC/100 WBC (Bld) [Ratio] 0 % 0-5 [facility] MCHC Auto (RBC) [Mass/Vol]Or dered By: Dr. Matute on 01-31-2023 MCHC (RBC) [Mass/Vol] 32.1 g/dL 32-36 [facility] No Panel InformationOrdered By: Dr. Matute on 01-31-2023 Estimated GFR (MDRD) Amer 104 mL/min >60 [facility] Comment on above: GFR Calc Estimated GFR (MDRD) Non-Af Amer 86 mL/min >60 [facility] Comment on above: Non- GFR Calc Platelets bldOrdered By: Dr. Matute on 01-31-2023 Platelets (Bld) [#/Vol] 248 10*3/uL 150-450 [facility] Serum or plasma albumin lamine urement (mass/volume)Ordered By: Dr. Matute on 01-31-2023 Albumin [Mass/Vol] 3.9 g/dL 3.2-5.0 [facility] Serum or plasma albumin/glob ulin mass ratioOrdered By: Dr. Matute on 01-31-2023 Albumin/Globulin [Mass ratio] 1.3 {ratio} 0.9-2.4 [facility] Serum or plasma calcium lamine urement (mass/volume)Ordered By: Dr. Matute on 01-31-2023 Calcium [Mass/Vol] 9.4 mg/dL 8.5-10.1 [facility] Serum or plasma creatinine m easurement (mass/volume)Ordered By: Dr. Matute on 01-31-2023 Creatinine [Mass/Vol] 0.72 mg/dL 0.55-1.02 [facility] Comment on above: The validity of the calculated GFR & GFRAA in patients over 70 years has not been determined. Clinical correlation is essential. Serum or plasma urea nitroge n measurement (mass/volume)Ordered By: Dr. Matute on 01-31-2023 Urea nitrogen [Mass/Vol] 10 mg/dL 7-18 [facility] Thin prep Papanicolaou smear with manual screeningOrdered By: Dr. Matute on 01-31-2023 Thin prep Papanicolaou smear with manual screening 20 U/L 15-37 [facility] Thin prep Papanicolaou smear with manual screening 6 5-15 [facility] Basophil percentageOrdered B y: Dr. Tilley on 12-10-2022 Bilirubin [Mass/Vol] 0.30 mg/dL 0.20-1.00 [facility] Comment on above: For patients on eltr ombopag therapy, use of [place] TBIL is not recommended. Chloride [Moles/Vol] 104 mmol/L 98-107 [facility] Cholesterol [Mass/Vol] 237 mg/dL <200 [facility] Comment on above: <200 mg/dL Desirable 200-240 mg/dL Borderline >240 mg/dL High Risk Glucose [Mass/Vol] 94 mg/dL 74-106 [facility] Potassium [Moles/Vol] 4.0 mmol/L 3.5-5.1 [facility] Protein [Mass/Vol] 6.5 g/dL 6.4-8.2 [facility] Sodium [Moles/Vol] 142 mmol/L 136-145 [facility] Triglyceride [Mass/Vol] 244 mg/dL <199 [facility] Comment on above: The drugs N-Acetylcy steine and Metamizole may falsely depress this assay.Serum Triglycerides Reference Interval Normal <150 mg/dL Borderline high 150 - 199 mg/dL High 200 - 499 mg/dL Very High > or = 500 mg/dL Laboratory - Chemistry and C hemistry - challengeOrdered By: Dr. Tilley on 12-10-2022 ALP [Catalytic activity/Vol] 69 U/L 45-117 [facility] ALT [Catalytic activity/Vol] 19 U/L 13-56 [facility] CO2 [Moles/Vol] 29.0 mmol/L 21.0-32.0 [facility] Globulin (S) [Mass/Vol] 3.1 g/dL 2.2-4.2 [facility] Urea nitrogen/Creatinine [Mass ratio] 21.0 mg/mg 10-20 [facility] No Panel InformationOrdered By: Dr. Tilley on 12-10-2022 Estimated GFR (MDRD) Amer 114 mL/min >60 [facility] Comment on above: GFR Calc Estimated GFR (MDRD) Non-Af Amer 94 mL/min >60 [facility] Comment on above: Non- GFR Calc Thyroid Stimulating Hormone (TSH) 2.42 uIU/mL 0.358-3.74 [facility] Serum or plasma albumin lamine urement (mass/volume)Ordered By: Dr. Tilley on 12-10-2022 Albumin [Mass/Vol] 3.4 g/dL 3.2-5.0 [facility] Serum or plasma albumin/glob ulin mass ratioOrdered By: Dr. Tilley on 12-10-2022 Albumin/Globulin [Mass ratio] 1.1 {ratio} 0.9-2.4 [facility] Serum or plasma calcium lamine urement (mass/volume)Ordered By: Dr. Tilley on 12-10-2022 Calcium [Mass/Vol] 9.3 mg/dL 8.5-10.1 [facility] Serum or plasma cholesterol in HDL measurement (mass/volume)Ordered By: Dr. Tilley on 12-10-2022 Cholesterol in HDL [Mass/Vol] 55 mg/dL >40 [facility] Comment on above: The drugs N-Acetylcy steine and Metamizole may falsely depress this assay. Reference Range HDL <40 mg/dL Low HDL Cholesterol HDL >or= 60 mg/dL High HDL Cholesterol Serum or plasma cholesterol in VLDL measurement (mass/volume)Ordered By: Dr. Tilley on 12-10-2022 Cholesterol in VLDL [Mass/Vol] 49 mg/dL 5-40 [facility] Serum or plasma creatinine m easurement (mass/volume)Ordered By: Dr. Tilley on 12-10-2022 Creatinine [Mass/Vol] 0.67 mg/dL 0.55-1.02 [facility] Comment on above: The validity of the calculated GFR & GFRAA in patients over 70 years has not been determined. Clinical correlation is essential. Serum or plasma low density lipoprotein (LDL) cholesterol measurement (mass/volume)Ordered By: Dr. Tilley on 12-10-2022 Cholesterol in LDL [Mass/Vol] 133 mg/dL 0-130 [facility] Serum or plasma urea nitroge n measurement (mass/volume)Ordered By: Dr. Tilley on 12-10-2022 Urea nitrogen [Mass/Vol] 14 mg/dL 7-18 [facility] Thin prep Papanicolaou smear with manual screeningOrdered By: Dr. Tilley on 12-10-2022 Thin prep Papanicolaou smear with manual screening 17 U/L 15-37 [facility] Thin prep Papanicolaou smear with manual screening 9 5-15 [facility] Absolute lymphocyte countOrd ered By: Dr. Matute on 11-04-2022 Lymphocytes Auto (Unsp spec) [#/Vol] 1.89 10*3/uL 0.83-4.51 [facility] Basophil percentageOrdered B y: Dr. Matute on 11-04-2022 Basophils/100 WBC (Bld) 0.7 % 0-1 [facility] Bilirubin [Mass/Vol] 0.60 mg/dL 0.20-1.00 [facility] Comment on above: For patients on eltr ombopag therapy, use of Dimension [place] TBIL is not recommended. Chloride [Moles/Vol] 108 mmol/L 98-107 [facility] Eosinophils/100 WBC (Bld) 1.3 % 0-5 [facility] Glucose [Mass/Vol] 91 mg/dL 74-106 [facility] Neutrophils (Bld) [#/Vol] 2.9 10*3/uL 2.0-7.7 [facility] Neutrophils/100 WBC (Bld) 55.0 % 47-70 [facility] Potassium [Moles/Vol] 4.2 mmol/L 3.5-5.1 [facility] Protein [Mass/Vol] 6.6 g/dL 6.4-8.2 [facility] Sodium [Moles/Vol] 141 mmol/L 136-145 [facility] WBC (Bld) [#/Vol] 5.4 10*3/uL 4.4-11.0 [facility] Blood erythrocytes count (nu mber/volume)Ordered By: Dr. Matute on 11-04-2022 RBC (Bld) [#/Vol] 4.21 10*6/uL 4.2-5.4 [facility] Blood hemoglobin measurement (mass/volume)Ordered By: Dr. Matute on 11-04-2022 Hemoglobin (Bld) [Mass/Vol] 14.0 g/dL 12.0-15.0 [facility] Blood lymphocytes/100 leukoc ytesOrdered By: Dr. Matute on 11-04-2022 Lymphocytes/100 WBC (Bld) 35.3 % 19-41 [facility] Blood monocytes/100 leukocyt esOrdered By: Dr. Matute on 11-04-2022 Monocytes/100 WBC (Bld) 7.5 % 0-10 [facility] Blood platelet mean volumeOr dered By: Dr. Matute on 11-04-2022 Platelet mean volume (Bld) [Entitic vol] 10.2 fL 6.2-12.0 [facility] Determination of erythrocyte mean corpuscular volume (MCV)Ordered By: Dr. Matute on 11-04-2022 MCV (RBC) [Entitic vol] 102.6 fL 81-99 [facility] Hematocrit Auto (Bld) [Volum e fraction]Ordered By: Dr. Matute on 11-04-2022 Hematocrit (Bld) [Volume fraction] 43.2 % 37-47 [facility] Laboratory - Chemistry and C hemistry - challengeOrdered By: Dr. Matute on 11-04-2022 ALP [Catalytic activity/Vol] 57 U/L 45-117 [facility] ALT [Catalytic activity/Vol] 28 U/L 13-56 [facility] CO2 [Moles/Vol] 27.0 mmol/L 21.0-32.0 [facility] Globulin (S) [Mass/Vol] 2.6 g/dL 2.2-4.2 [facility] Urea nitrogen/Creatinine [Mass ratio] 17.3 mg/mg 10-20 [facility] Laboratory - Hematology and Cell countsOrdered By: Dr. Matute on 11-04-2022 Erythrocyte distribution width (RBC) [Entitic vol] 54.2 fL 35.1-43.9 [facility] Erythrocyte distribution width (RBC) [Ratio] 14.3 % 11.6-14.6 [facility] Immature granulocytes/100 WBC (Bld) 0.200 % 0.0-0.9 [facility] Comment on above: IG% - Immature Granu locytes (promyelocytes, myelocytes and metamyelocytes) > 1% indicates that a LEFT SHIFT is Present. MCH (RBC) [Entitic mass] 33.3 pg 27.0-32.0 [facility] Nucleated RBC/100 WBC (Bld) [Ratio] 0 % 0-5 [facility] MCHC Auto (RBC) [Mass/Vol]Or dered By: Dr. Matute on 11-04-2022 MCHC (RBC) [Mass/Vol] 32.4 g/dL 32-36 [facility] No Panel InformationOrdered By: Dr. Matute on 11-04-2022 Estimated GFR (MDRD) Amer 109 mL/min >60 [facility] [facility] Comment on above: GFR Calc Estimated GFR (MDRD) Non-Af Amer 90 mL/min >60 [facility] Comment on above: Non- GFR Calc Platelets bldOrdered By: Dr. Matute on 11-04-2022 Platelets (Bld) [#/Vol] 283 10*3/uL 150-450 [facility] Serum or plasma albumin lamine urement (mass/volume)Ordered By: Dr. Matute on 11-04-2022 Albumin [Mass/Vol] 4.0 g/dL 3.2-5.0 [facility] Serum or plasma albumin/glob ulin mass ratioOrdered By: Dr. Matute on 11-04-2022 Albumin/Globulin [Mass ratio] 1.5 {ratio} 0.9-2.4 [facility] Serum or plasma calcium lamine urement (mass/volume)Ordered By: Dr. Matute on 11-04-2022 Calcium [Mass/Vol] 9.1 mg/dL 8.5-10.1 [facility] Serum or plasma creatinine m easurement (mass/volume)Ordered By: Dr. Matute on 11-04-2022 Creatinine [Mass/Vol] 0.70 mg/dL 0.55-1.02 [facility] Comment on above: The validity of the calculated GFR & GFRAA in patients over 70 years has not been determined. Clinical correlation is essential. Serum or plasma urea nitroge n measurement (mass/volume)Ordered By: Dr. Matute on 11-04-2022 Urea nitrogen [Mass/Vol] 12 mg/dL 7-18 [facility] Thin prep Papanicolaou smear with manual screeningOrdered By: Dr. Matute on 11-04-2022 Thin prep Papanicolaou smear with manual screening 21 U/L 15-37 [facility] Thin prep Papanicolaou smear with manual screening 6 5-15 [facility] Absolute lymphocyte counton 08-09-2022 Lymphocytes Auto (Unsp spec) [#/Vol] 1.64 10*3/uL 0.83-4.51 [facility] Work Phone: Basophil percentageon 2021 Basophils/100 WBC (Bld) 0.5 % 0-1 [facility] Work Phone: Bilirubin [Mass/Vol] 0.40 mg/dL 0.20-1.00 [facility] Work Phone: Comment on above: For patients on eltr ombopag therapy, use of Dimension [place] TBIL is not recommended. Chloride [Moles/Vol] 107 mmol/L 98-107 [facility] Work Phone: Eosinophils/100 WBC (Bld) 1.2 % 0-5 [facility] Work Phone: Glucose [Mass/Vol] 90 mg/dL 74-106 [facility] Work Phone: Neutrophils (Bld) [#/Vol] 2.1 10*3/uL 2.0-7.7 [facility] Work Phone: [phone] Neutrophils/100 WBC (Bld) 50.9 % 47-70 [facility] Work Phone: Potassium [Moles/Vol] 4.0 mmol/L 3.5-5.1 [facility] Work Phone: [phone] Protein [Mass/Vol] 6.8 g/dL 6.4-8.2 [facility] Work Phone: [phone] Sodium [Moles/Vol] 141 mmol/L 136-145 [facility] Work Phone: [phone] WBC (Bld) [#/Vol] 4.1 10*3/uL 4.4-11.0 [facility] Work Phone: [phone] Blood erythrocytes count (nu mber/volume)on 08-09-2022 RBC (Bld) [#/Vol] 3.98 10*6/uL 4.2-5.4 [facility] Work Phone: [phone] Blood hemoglobin measurement (mass/volume)on 08-09-2022 Hemoglobin (Bld) [Mass/Vol] 13.1 g/dL 12.0-15.0 [facility] Work Phone: [phone] Blood lymphocytes/100 leukoc yteson 08-09-2022 Lymphocytes/100 WBC (Bld) 39.7 % 19-41 [facility] Work Phone: Blood monocytes/100 leukocyt eson 08-09-2022 Monocytes/100 WBC (Bld) 7.5 % 0-10 [facility] Work Phone: Blood platelet mean volumeon 08-09-2022 Platelet mean volume (Bld) [Entitic vol] 10.0 fL 6.2-12.0 [facility] Work Phone: Determination of erythrocyte mean corpuscular volume (MCV)on 08-09-2022 MCV (RBC) [Entitic vol] 99.7 fL 81-99 [facility] Work Phone: Hematocrit Auto (Bld) [Volum e fraction]on 08-09-2022 Hematocrit (Bld) [Volume fraction] 39.7 % 37-47 [facility] Work Phone: Laboratory - Chemistry and C hemistry - challengeon 08-09-2022 ALP [Catalytic activity/Vol] 51 U/L 45-117 [facility] Work Phone: ALT [Catalytic activity/Vol] 24 U/L 13-56 [facility] Work Phone: CO2 [Moles/Vol] 28.0 mmol/L 21.0-32.0 [facility] Work Phone: Globulin (S) [Mass/Vol] 3.0 g/dL 2.2-4.2 [facility] Work Phone: Urea nitrogen/Creatinine [Mass ratio] 23.5 mg/mg 10-20 [facility] Work Phone: Laboratory - Hematology and Cell countson 08-09-2022 Erythrocyte distribution width (RBC) [Entitic vol] 49.0 fL 35.1-43.9 [facility] Work Phone: Erythrocyte distribution width (RBC) [Ratio] 13.3 % 11.6-14.6 [facility] Work Phone: Immature granulocytes/100 WBC (Bld) 0.200 % 0.0-0.9 [facility] Work Phone: Comment on above: IG% - Immature Granu locytes (promyelocytes, myelocytes and metamyelocytes) > 1% indicates that a LEFT SHIFT is Present. MCH (RBC) [Entitic mass] 32.9 pg 27.0-32.0 [facility] Work Phone: Nucleated RBC/100 WBC (Bld) [Ratio] 0 % 0-5 [facility] Work Phone: MCHC Auto (RBC) [Mass/Vol]on 08-09-2022 MCHC (RBC) [Mass/Vol] 33.0 g/dL 32-36 [facility] Work Phone: No Panel Informationon 08-09 Estimated GFR (MDRD) Amer 111 mL/min >60 [facility] Work Phone: Comment on above: GFR Calc Estimated GFR (MDRD) Non-Af Amer 92 mL/min >60 [facility] Work Phone: Comment on above: Non- GFR Calc Platelets bldon 08-09-2022 Platelets (Bld) [#/Vol] 236 10*3/uL 150-450 [facility] Work Phone: Serum or plasma albumin lamine urement (mass/volume)on 08-09-2022 Albumin [Mass/Vol] 3.8 g/dL 3.2-5.0 [facility] Work Phone: Serum or plasma albumin/glob ulin mass ratioon 08-09-2022 Albumin/Globulin [Mass ratio] 1.3 {ratio} 0.9-2.4 [facility] Work Phone: Serum or plasma calcium lamine urement (mass/volume)on 08-09-2022 Calcium [Mass/Vol] 9.5 mg/dL 8.5-10.1 [facility] Work Phone: Serum or plasma creatinine m easurement (mass/volume)on 08-09-2022 Creatinine [Mass/Vol] 0.68 mg/dL 0.55-1.02 [facility] Work Phone: Comment on above: The validity of the calculated GFR & GFRAA in patients over 70 years has not been determined. Clinical correlation is essential. Serum or plasma urea nitroge n measurement (mass/volume)on 08-09-2022 Urea nitrogen [Mass/Vol] 16 mg/dL 7-18 [facility] Work Phone: Thin prep Papanicolaou smear with manual screeningon 08-09-2022 Thin prep Papanicolaou smear with manual screening 20 U/L 15-37 [facility] Work Phone: Thin prep Papanicolaou smear with manual screening 6 5-15 [facility] Work Phone: Absolute lymphocyte counton 05-17-2022 Lymphocytes Auto (Unsp spec) [#/Vol] 1.73 10*3/uL 0.83-4.51 [facility] Work Phone: Basophil percentageon 2021 Basophils/100 WBC (Bld) 0.5 % 0-1 [facility] Work Phone: Bilirubin [Mass/Vol] 0.50 mg/dL 0.20-1.00 [facility] Work Phone: Comment on above: For patients on eltr ombopag therapy, use of [place]ension [place] TBIL is not recommended. Chloride [Moles/Vol] 105 mmol/L 98-107 [facility] Work Phone: Eosinophils/100 WBC (Bld) 1.2 % 0-5 [facility] Work Phone: Glucose [Mass/Vol] 104 mg/dL 74-106 [facility] Work Phone: Comment on above: Fasting Glucose resu lt from 100 to 125 mg/dL suggests IMPAIRED HOMEOSTASIS per A.D.A. criteria. Neutrophils (Bld) [#/Vol] 3.9 10*3/uL 2.0-7.7 [facility] Work Phone: Neutrophils/100 WBC (Bld) 63.3 % 47-70 [facility] Work Phone: [phone] Potassium [Moles/Vol] 3.5 mmol/L 3.5-5.1 [facility] Work Phone: Protein [Mass/Vol] 7.4 g/dL 6.4-8.2 [facility] Work [facility]: Sodium [Moles/Vol] 139 mmol/L 136-145 [facility] Work Phone: WBC (Bld) [#/Vol] 6.1 10*3/uL 4.4-11.0 [facility] Work Phone: Blood erythrocytes count (nu mber/volume)on 05-17-2022 RBC (Bld) [#/Vol] 4.06 10*6/uL 4.2-5.4 [facility]: Blood hemoglobin measurement (mass/volume)on 05-17-2022 Hemoglobin (Bld) [Mass/Vol] 13.0 g/dL 12.0-15.0 [facility] Work Phone: Blood lymphocytes/100 leukoc yteson 05-17-2022 Lymphocytes/100 WBC (Bld) 28.5 % 19-41 [facility] Work Phone: Blood monocytes/100 leukocyt eson 05-17-2022 Monocytes/100 WBC (Bld) 6.3 % 0-10 [facility] Work Phone: Blood platelet mean volumeon 05-17-2022 Platelet mean volume (Bld) [Entitic vol] 9.7 fL 6.2-12.0 [facility] Work Phone: Determination of erythrocyte mean corpuscular volume (MCV)on 05-17-2022 MCV (RBC) [Entitic vol] 98.0 fL 81-99 [facility] Work Phone: Hematocrit Auto (Bld) [Volum e fraction]on 05-17-2022 Hematocrit (Bld) [Volume fraction] 39.8 % 37-47 [facility] Work Phone: Laboratory - Chemistry and C hemistry - challengeon 05-17-2022 ALP [Catalytic activity/Vol] 59 U/L 45-117 [facility] Work Phone: ALT [Catalytic activity/Vol] 27 U/L 13-56 [facility] Work Phone: CO2 [Moles/Vol] 28.0 mmol/L 21.0-32.0 [facility] Work Phone: Globulin (S) [Mass/Vol] 3.2 g/dL 2.2-4.2 [facility] Work Phone: Urea nitrogen/Creatinine [Mass ratio] 13.1 mg/mg 10-20 [facility] Work Phone: Laboratory - Hematology and Cell countson 05-17-2022 Erythrocyte distribution width (RBC) [Entitic vol] 59.9 fL 35.1-43.9 [facility] Work Phone: Erythrocyte distribution width (RBC) [Ratio] 16.8 % 11.6-14.6 [facility] Work Phone: Immature granulocytes/100 WBC (Bld) 0.200 % 0.0-0.9 [facility] Work Phone: Comment on above: IG% - Immature Granu locytes (promyelocytes, myelocytes and metamyelocytes) > 1% indicates that a LEFT SHIFT is Present. MCH (RBC) [Entitic mass] 32.0 pg 27.0-32.0 [facility] Work Phone: Nucleated RBC/100 WBC (Bld) [Ratio] 0 % 0-5 [facility] Work Phone: MCHC Auto (RBC) [Mass/Vol]on 05-17-2022 MCHC (RBC) [Mass/Vol] 32.7 g/dL 32-36 [facility] Work Phone: No Panel Informationon 05-17 Estimated GFR (MDRD) Amer 88 mL/min >60 [facility] Work Phone: Comment on above: GFR Calc Estimated GFR (MDRD) Non-Af Amer 73 mL/min >60 [facility] Work Phone: Comment on above: Non- GFR Calc Platelets bldon 05-17-2022 Platelets (Bld) [#/Vol] 276 10*3/uL 150-450 [facility] Work Phone: Serum or plasma albumin lamine urement (mass/volume)on 05-17-2022 Albumin [Mass/Vol] 4.2 g/dL 3.2-5.0 [facility] Work Phone: Serum or plasma albumin/glob ulin mass ratioon 05-17-2022 Albumin/Globulin [Mass ratio] 1.3 {ratio} 0.9-2.4 [facility] Work Phone: Serum or plasma calcium lamine urement (mass/volume)on 05-17-2022 Calcium [Mass/Vol] 9.1 mg/dL 8.5-10.1 [facility] Work Phone: Serum or plasma creatinine m easurement (mass/volume)on 05-17-2022 Creatinine [Mass/Vol] 0.84 mg/dL 0.55-1.02 [facility] Work Phone: Comment on above: The validity of the calculated GFR & GFRAA in patients over 70 years has not been determined. Clinical correlation is essential. Serum or plasma urea nitroge n measurement (mass/volume)on 05-17-2022 Urea nitrogen [Mass/Vol] 11 mg/dL 7-18 [facility] Work Phone: Thin prep Papanicolaou smear with manual screeningon 05-17-2022 Thin prep Papanicolaou smear with manual screening 22 U/L 15-37 [facility] Work Phone: Thin prep Papanicolaou smear with manual screening 6 5-15 [facility] Work Phone: DEXA BONE DENSITY AXIAL SKEL ETONon 02-17-2022 [id number] Density ACCESSION EXAM DATE/TIME PROCEDURE ORDERING PROVIDER [id number] 02/17/2022 08:19 EDT OT Bone Density DEXA DO CASTILLO LISA Axial Skeleton CPT code 12641 Reason For Exam (OT Bone Density DEXA Axial Skeleton) asymptomatic postmenopausal state Report DXA BONE DENSITOMETRY: CLINICAL INDICATION: Asymptomatic post-menopausal status. Screening for osteoporosis. COMPARISON: 07/08/2015 TECHNIQUE: Quantitative bone mineral densitometry of the hip and lumbar spine was performed with a dual energy x-ray observed absorptiometry device - ActiveGift at some institutions, HOLOGIC at others. Regions [...] recommendations for prevention of bone loss include: 5481-2963 mg calcium intake per day for adults [...] Breonna of Knowledge Evidence - based Summaries. [employer] [employer] for Education and Research 2017. (more content not included)... LJMinesh Mosley MD - 02/17/2022 Patient Name: AUGUSTUS TARIQ Bone Density ACCESSION EXAM DATE/TIME PROCEDURE ORDERING PROVIDER [id number] 02/17/2022 08:19 EDT OT Bone Density DEXA ESTERLE, DO, SURI Axial Skeleton CPT code 34845 Reason For Exam (OT Bone Density DEXA Axial Skeleton) asymptomatic postmenopausal state Report DXA BONE DENSITOMETRY: CLINICAL INDICATION: Asymptomatic post-menopausal status. Screening for osteoporosis. COMPARISON: 07/08/2015 TECHNIQUE: Quantitative bone mineral densitometry of the hip and lumbar spine was performed with a dual energy x-ray observed absorptiometry device - ActiveGift at some institutions, HOLOGIC at others. Regions [...] recommendations for prevention of bone loss include: 4839-7767 mg calcium intake per day for adults [...] Breonna of Knowledge Evidence - based Summaries. [facility] for Education and Research 2017. Bone Density Report Report Dictated on Workstation: [id number] --- Final --- Dictating Physic (more content not included)... [employer] Work Phone: DEXA BONE DENSITY AXIAL SKEL ETONOrdered By: Minesh Clement on 02-17-2022 [employer] Work Phone: MG Breast Tomosynthesis Scr Blon 02-17-2022 MG Breast Tomosynthesis Scr Bl Patient Name: AUGUSTUS TARIQ Mammography ACCESSION EXAM DATE/TIME PROCEDURE ORDERING PROVIDER [id number] 02/17/2022 08:00 EDT MG Breast Tomosynthesis DO CASTILLO LISA BI Scr CPT code 19845 [id number] Reason For Exam (MG Breast Tomosynthesis BI [...] MG breast tomosynthesis bl scr performed at [facility]. September 18, 2019, bilateral MG breast tomosynthesis bl scr performed at [facility]. July 08, 2015, bilateral screening mammogram performed at [facility]. TISSUE DENSITY: BIRADS B - There are [...] images: BB's = Nipples; skin lesions Open marshall = Palpable Line = Scar 2D digital [...] am Signed by: MD ROSAS LAUREN B [facility] Kurt Digital Screen Rickey dia 02-17-2022 Patient Name: AUGUSTUS BEAUCHAMP Mammography ACCESSION EXAM DATE/TIME PROCEDURE ORDERING PROVIDER [id number] 02/17/2022 08:00 EDT MG Breast Tomosynthesis DO CASTILLO LISA BI Scr CPT code 21673 55145 Reason For Exam (MG Breast Tomosynthesis BI [...] MG breast tomosynthesis bl scr performed at [facility]. September 18, 2019, bilateral MG breast tomosynthesis bl scr performed at [facility]. July 08, 2015, bilateral screening mammogram performed at [facility]. TISSUE DENSITY: BIRADS B - There are [...] images: BB's = Nipples; skin lesions Open marshall = Palpable Line = Scar 2D digital [...] am Signed by: MD ROSAS LAUREN B [facility] Cedric Rosas MD - 02/17/2022 [id number] Mammography ACCESSION EXAM DATE/TIME PROCEDURE ORDERING PROVIDER [id number] 02/17/2022 08:00 EDT MG Breast Tomosynthesis DO CASTILLO LISA BI Scr CPT code 24724 [id number] Reason For Exam (MG Breast Tomosynthesis BI [...] MG breast tomosynthesis bl scr performed at [facility]. September 18, 2019, bilateral MG breast tomosynthesis bl scr performed at [facility]. July 08, 2015, bilateral screening mammogram performed at [facility]. TISSUE DENSITY: BIRADS B - There are [...] images: BB's = Nipples; skin lesions Open marshall = Palpable Line = Scar 2D digital [...] am Signed by: MD PEDRO, CEDRIC [employer] Work Phone: Vicenta Kurt Digital Screen Bila teralOrdered By: Cedric Rosas on 02-17-2022 [employer] Work Phone: No Panel Informationon 02-17 Radiology Study observation (narrative) [employer] Work Phone: OT Bone Density DEXA Axial S keletonon 02-17-2022 OT Bone Density DEXA Axial Skeleton Patient Name: AUGUSTUS TARIQ Bone Density ACCESSION EXAM DATE/TIME PROCEDURE ORDERING PROVIDER [id number] 02/17/2022 08:19 EDT OT Bone Density DEXA ESTERLE, DO, SURI Axial Skeleton CPT code 73630 Reason For Exam (OT Bone Density DEXA Axial Skeleton) asymptomatic postmenopausal state Report DXA BONE DENSITOMETRY: CLINICAL INDICATION: Asymptomatic post-menopausal status. Screening for osteoporosis. COMPARISON: 07/08/2015 TECHNIQUE: Quantitative bone mineral densitometry of the hip and lumbar spine was performed with a dual energy x-ray observed absorptiometry device - ActiveGift at some institutions, HOLOGIC at others. Regions [...] recommendations for prevention of bone loss include: 1589-6805 mg calcium intake per day for adults [...] Breonna of Knowledge Evidence - based Summaries. [facility] [employer] for Education and Research 2017. Bone Density Report Report Dictated on Workstation: Gifts that [id number] Final Dictating Physician: MD CLEMENT JEFFREY Signed Date and Time: 02/17/2022 4:49 pm Signed by: MD CLEMENT JEFFREY Transcribed Date and Time: 02/17/2022 4:50 Normal [facility] Absolute lymphocyte counton 02-15-2022 Lymphocytes Auto (Unsp spec) [#/Vol] 2.09 10*3/uL 0.83-4.51 [facility] Work Phone: Basophil percentageon 2021 Basophils/100 WBC (Bld) 0.8 % 0-1 [facility] Work Phone: Bilirubin [Mass/Vol] 0.40 mg/dL 0.20-1.00 [facility] Work Phone: Comment on above: For patients on eltr ombopag therapy, use of Dimension [place] TBIL is not recommended. Chloride [Moles/Vol] 108 mmol/L 98-107 [facility] Work Phone: Eosinophils/100 WBC (Bld) 4.1 % 0-5 [facility] Work Phone: Glucose [Mass/Vol] 89 mg/dL 74-106 [facility] Work Phone: Neutrophils (Bld) [#/Vol] 2.0 10*3/uL 2.0-7.7 [facility] Work Phone: Neutrophils/100 WBC (Bld) 41.9 % 47-70 [facility] Work Phone: Potassium [Moles/Vol] 3.8 mmol/L 3.5-5.1 [facility] Work Phone: Protein [Mass/Vol] 7.2 g/dL 6.4-8.2 [facility] Work Phone: Sodium [Moles/Vol] 141 mmol/L 136-145 [facility] Work Phone: [phone] WBC (Bld) [#/Vol] 4.8 10*3/uL 4.4-11.0 [facility] Work Phone: [phone] Blood erythrocytes count (nu mber/volume)on 02-15-2022 RBC (Bld) [#/Vol] 4.49 10*6/uL 4.2-5.4 [facility] Work Phone: Blood hemoglobin measurement (mass/volume)on 02-15-2022 Hemoglobin (Bld) [Mass/Vol] 13.7 g/dL 12.0-15.0 [facility] Work Phone: Blood lymphocytes/100 leukoc yteson 02-15-2022 Lymphocytes/100 WBC (Bld) 43.3 % 19-41 [facility] Work Phone: Blood monocytes/100 leukocyt eson 02-15-2022 Monocytes/100 WBC (Bld) 9.7 % 0-10 [facility] Work Phone: Blood platelet mean volumeon 02-15-2022 Platelet mean volume (Bld) [Entitic vol] 10.7 fL 6.2-12.0 [facility] Work Phone: Determination of erythrocyte mean corpuscular volume (MCV)on 02-15-2022 MCV (RBC) [Entitic vol] 93.3 fL 81-99 [facility] Work Phone: Hematocrit Auto (Bld) [Volum e fraction]on 02-15-2022 Hematocrit (Bld) [Volume fraction] 41.9 % 37-47 [facility] Work Phone: Laboratory - Chemistry and C hemistry - challengeon 02-15-2022 ALP [Catalytic activity/Vol] 58 U/L 45-117 [facility] Work Phone: ALT [Catalytic activity/Vol] 21 U/L 13-56 [facility] Work Phone: CO2 [Moles/Vol] 27.0 mmol/L 21.0-32.0 [facility] Work Phone: Globulin (S) [Mass/Vol] 3.2 g/dL 2.2-4.2 [facility] Work Phone: Urea nitrogen/Creatinine [Mass ratio] 10.5 mg/mg 10-20 [facility] Work Phone: Laboratory - Hematology and Cell countson 02-15-2022 Erythrocyte distribution width (RBC) [Entitic vol] 44.8 fL 35.1-43.9 [facility] Work Phone: Erythrocyte distribution width (RBC) [Ratio] 13.2 % 11.6-14.6 [facility] Work Phone: Immature granulocytes/100 WBC (Bld) 0.200 % 0.0-0.9 [facility] Work Phone: Comment on above: IG% - Immature Granu locytes (promyelocytes, myelocytes and metamyelocytes) > 1% indicates that a LEFT SHIFT is Present. MCH (RBC) [Entitic mass] 30.5 pg 27.0-32.0 [facility] Work Phone: Nucleated RBC/100 WBC (Bld) [Ratio] 0 % 0-5 [facility] Work Phone: MCHC Auto (RBC) [Mass/Vol]on 02-15-2022 MCHC (RBC) [Mass/Vol] 32.7 g/dL 32-36 [facility] Work Phone: No Panel Informationon 02-15 Estimated GFR (MDRD) Amer 86 mL/min >60 [facility] Work Phone: Comment on above: GFR Calc Estimated GFR (MDRD) Non-Af Amer 71 mL/min >60 [facility] Work Phone: Comment on above: Non- GFR Calc Platelets bldon 02-15-2022 Platelets (Bld) [#/Vol] 264 10*3/uL 150-450 [facility] Work Phone: Serum or plasma albumin lamine urement (mass/volume)on 02-15-2022 Albumin [Mass/Vol] 4.0 g/dL 3.2-5.0 [facility] Work Phone: Serum or plasma albumin/glob ulin mass ratioon 02-15-2022 Albumin/Globulin [Mass ratio] 1.2 {ratio} 0.9-2.4 [facility] Work Phone: Serum or plasma calcium lamine urement (mass/volume)on 02-15-2022 Calcium [Mass/Vol] 9.0 mg/dL 8.5-10.1 [facility] Work Phone: Serum or plasma creatinine m easurement (mass/volume)on 02-15-2022 Creatinine [Mass/Vol] 0.86 mg/dL 0.55-1.02 [facility] Work Phone: Comment on above: The validity of the calculated GFR & GFRAA in patients over 70 years has not been determined. Clinical correlation is essential. Serum or plasma urea nitroge n measurement (mass/volume)on 02-15-2022 Urea nitrogen [Mass/Vol] 9 mg/dL 7-18 [facility] Work Phone: Thin prep Papanicolaou smear with manual screeningon 02-15-2022 Thin prep Papanicolaou smear with manual screening 23 U/L 15-37 [facility] Work Phone: Thin prep Papanicolaou smear with manual screening 6 5-15 [facility] Work Phone: VICENTA KURT DIGITAL SCREEN RICKEY Dia 01-30-2021 Patient Name: AUGUSTUS TARIQ Mammography ACCESSION EXAM DATE/TIME PROCEDURE ORDERING PROVIDER [id number] 01/30/2021 10:52 EST MG Breast Tomosynthesis DO CASTILLO LISA BI Scr CPT code 36277 01983 Reason For Exam (MG Breast Tomosynthesis BI [...] MG breast tomosynthesis bl scr performed at [facility]. July 08, 2015, bilateral screening mammogram performed at [facility]. April 02, 2011, bilateral mammogram. TISSUE DENSITY: BIRADS B - There are scattered fibroglandular densities. . FINDINGS: No suspicious masses, architectural distortions or suspiciously clustered microcalcifications are identified. There is no evidence of skin thickening or nipple retraction. There are no significant changes when compared with prior studies. No mammographic evidence of malignancy. Markings on images: BB's = Nipples; skin lesions Open marshall = Palpable Line = Scar 2D digital mammography and tomosynthesis imaging were performed and reviewed with CAD. ASSESSMENT: Category 1 Negative RECOMMENDATION: Routine screening mammogram of both breasts in 1 year. . Mammography Report Report Dictated on --- Final --- Signed Date and Time: 01/30/2021 3:40 pm Signed by: MD VALDEZ TOM A [facility] Work Phone: [facility] Incoming Radiology Results From [facility] - 01/30/2021 3:50 PM EST Patient Name: AUGUSTUS TARIQ Mammography ACCESSION EXAM DATE/TIME PROCEDURE ORDERING PROVIDER [id number] 01/30/2021 10:52 EST MG Breast Tomosynthesis ESTERLE, DO, SURI BI Scr CPT code 54652 13416 Reason For Exam (MG Breast Tomosynthesis BI [...] MG breast tomosynthesis bl scr performed at [facility]. July 08, 2015, bilateral screening mammogram performed at [facility]. April 02, 2011, bilateral mammogram. TISSUE DENSITY: BIRADS B - There are scattered fibroglandular densities. . FINDINGS: No suspicious masses, architectural distortions or suspiciously clustered microcalcifications are identified. There is no evidence of skin thickening or nipple retraction. There are no significant changes when compared with prior studies. No mammographic evidence of malignancy. Markings on images: BB's = Nipples; skin lesions Open marshall = Palpable Line = Scar 2D digital mammography and tomosynthesis imaging were performed and reviewed with CAD. ASSESSMENT: Category 1 Negative RECOMMENDATION: Routine screening mammogram of both breasts in 1 year. . Mammography Report Report Dictated on --- Final --- Signed Date and Time: 01/30/2021 3:40 pm Signed by: MD VALDEZ TOM A [facility] Work Phone: [place] HEPATOBILIARY SCAN W EJEC TION FRACTION W/ CCKon 08-28-2020 Patient Name: AUGUSTUS TARIQ ---Nuc Med--- Exam Date/Time 08/28/2020 12:31:08 EDT Exam NM Hepatobiliary Duct System Imaging Ordering Physician DO CASTILLO LISA Accession Number [id number] CPT4 Codes 96268 () Reason For Exam Epigastric pain Report [...] R Transcribed Date and Time: 08/28/2020 1:38 [place], [place], [facility] Incoming Radiology Results From [facility] - 08/28/2020 1:38 PM EDT Patient Name: AUGUSTUS TARIQ ---Nuc Med--- Exam Date/Time 08/28/2020 12:31:08 EDT Exam NM Hepatobiliary Duct System Imaging Ordering Physician DO CASTILLO LISA Accession Number [id number] CPT4 Codes 31502 () Reason For Exam Epigastric pain Report [...] R Transcribed Date and Time: 08/28/2020 1:38 [place], [place] US ABDOMEN LIMITEDon Patient Name: AUGUSTUS TARIQ ---Ultrasound--- Exam Date/Time 08/07/2020 08:20:00 EDT Exam US Abdomen Limited Ordering Physician DO CASTILLO LISA Accession Number [id number] CPT4 Codes 15919 () Reason For Exam epigastric pain Report [...] AHMAD Transcribed Date and Time: 08/07/2020 8:40 [place], [facility] Incoming Radiology Results From [facility] - 08/07/2020 8:40 AM EDT Patient Name: AUGUSTUS TARIQ ---Ultrasound--- Exam Date/Time 08/07/2020 08:20:00 EDT Exam US Abdomen Limited Ordering Physician DO CASTILLO LISA Accession Number [id number] CPT4 Codes 90845 () Reason For Exam epigastric pain Report [...] AHMAD Transcribed Date and Time: 08/07/2020 8:40 [place] Vital Signs Date Time Vital Sign Value Performing Clinician Yanethi mercy 08-28-2020 10:52-0400 BMI (Body Mass Index) 26.47 kg/m2 [place], [place] 08-28-2020 10:52-0400 Body weight 74.39 kg [place], [place] 08-28-2020 10:52-0400 Height 167.6 cm [place], [place] Encounters Encounter Date Encounter Type Care Provider Facility Start: 10-21-2025 ambulatory Gaetano Webster y:[facility] Start: 10-03-2025 ambulatory Lauri Mayes Facility :[facility] Start: 10-03-2025 End: 10-03-2025 ambulatory Gaetano Tilley Facility:[facility] Start: 09-21-2025 End: 09-21-2025 ambulatory Gaetano Tilley Facility:[facility] Start: 09-04-2025 End: 09-04-2025 ambulatory Gaetano Tilley Facility:[facility] Start: 08-13-2025 End: 08-13-[address] Gaetano Tilley MD Work Phone: -[facility] Start: 08-13-2025 End: 08-13-[address] Sara Matute MD -[facility] Work Phone: Start: 08-13-2025 End: 08-13-2025 ambulatory Gaetano Tilley Facility:[facility] Start: 07-29-2025 ambulatory Gaetano Tilley Facilit y:[facility] Start: 07-29-2025 Non-patient / Non-visit Dr. Cyril [facility] -[facility] Start: 07-24-2025 End: 07-24-[address] Gaetano Tilley MD Work Phone: -[facility] Start: 07-24-2025 End: 07-24-[address] Gaetano Tilley MD -[facility] Work Phone: Start: 07-23-2025 End: 07-24-[address] Gaetano Tilley MD Work Phone: -[facility] Start: 07-23-2025 End: 07-23-[address] Gaetano Tilley MD -[facility] Start: 07-23-2025 End: 07-23-2025 ambulatory Gaetano Tilley Facility:[facility] Start: 06-03-2025 End: 06-03-[address] Gaetano Tilley MD Work Phone: -[facility] Start: 06-03-2025 End: 06-03-2025 Patient encounter procedure Mercedes [place] -[facility] Work Phone: Start: 06-03-2025 End: 06-03-2025 ambulatory Gaetano Tilley Facility:[facility] Start: 05-24-2025 End: 05-24-[address] Gaetano Tilley MD Work Phone: -[facility] [place] Start: 05-24-2025 End: 05-24-[address] Sara Matute MD -[facility] [place] Work Phone: Start: 05-24-2025 End: 05-24-2025 ambulatory Gaetano Tilley Facility:[facility] Start: 02-26-2025 End: 02-26-[address] Gaetano Tilley MD Work Phone: [facility] Work Phone: Start: 02-26-2025 End: 02-26-[address] [facility] Start: 02-26-2025 End: 02-26-2025 ambulatory Sara Matute Facility:[facility] Start: 01-30-2025 End: 01-30-[address] Gaetano Tilley MD Work Phone: [facility] Work Phone: Start: 01-30-2025 End: 01-30-[address] Gaetano Tilley MD -[facility] Work Phone: Start: 01-30-2025 End: 01-30-2025 ambulatory Gaetano Tilley Facility:[facility] Start: 01-22-2025 End: 01-22-[address] Gaetano Tilley MD Work Phone: [facility] Work Phone: Start: 01-22-2025 End: 01-22-[address] [facility] Start: 01-22-2025 End: 01-22-2025 ambulatory Gaetano Tilley Facility:[facility] Start: 12-27-2024 End: 12-27-[address] Sara Matute MD -[facility] [place] Work Phone: Start: 12-27-2024 End: 12-27-2024 ambulatory [facility] Facility:[facility] Start: 10-08-2024 End: 10-08-[address] Sara Matute MD -[facility], [place] Work Phone: Start: 10-08-2024 End: 10-08-2024 ambulatory [facility] Facility:[facility] Start: 03-15-2024 End: 03-15-2024 ambulatory [facility] Work Phone: Start: 03-15-2024 End: 03-15-2024 Patient encounter procedure [facility]-Radiology, [place] Work Phone: Start: 03-08-2024 End: 03-08-2024 ambulatory [facility] Work Phone: Start: 03-08-2024 End: 03-08-2024 [facility] Start: 02-24-2024 End: 02-24-2024 ambulatory [facility] Work Phone: Start: 02-24-2024 End: 02-24-2024 [facility] Start: 01-26-2024 End: 01-26-2024 ambulatory [facility] Work Phone: Start: 01-26-2024 End: 01-26-2024 [facility] Start: 12-13-2023 End: 12-13-2023 ambulatory [facility] Work Phone: Start: 12-13-2023 End: 12-13-2023 [facility] Start: 11-25-2023 End: 11-25-2023 [facility] Work [facility]: Start: 08-24-2023 End: 08-24-2023 ambulatory [facility] Work Phone: Start: 08-24-2023 End: 08-24-2023 [facility] Start: 06-20-2023 End: 06-20-2023 ambulatory [facility] Work Phone: Start: 06-20-2023 End: 06-20-2023 Patient encounter procedure [facility]-Outpatient Breast Imaging Work Phone: Start: 06-16-2023 End: 06-16-2023 ambulatory [facility] Work Phone: Start: 06-16-2023 End: 06-16-2023 Discharged Recurring [facility]-Physical Therapy Work Phone: Start: 06-16-2023 Registered Recurring [facility]-Physical Therapy Work Phone: Start: 04-27-2023 End: 04-27-2023 Patient encounter procedure [facility] Start: 04-22-2023 End: 04-22-2023 ambulatory [facility] Work Phone: Start: 04-22-2023 End: 04-22-2023 Patient encounter procedure [facility] Start: 04-15-2023 End: 04-15-2023 ambulatory [facility] Work Phone: Start: 04-15-2023 End: 04-15-2023 Patient encounter procedure [facility]-MRI - [facility] Start: 01-31-2023 End: 01-31-2023 ambulatory [facility] Work Phone: Start: 01-31-2023 End: 01-31-2023 Patient encounter procedure [facility] Start: 12-10-2022 End: 12-10-2022 ambulatory [facility] Work Phone: Start: 12-10-2022 End: 12-10-2022 Patient encounter procedure [facility] Start: 11-04-2022 End: 11-04-2022 ambulatory [facility] Work Phone: Start: 11-04-2022 End: 11-04-2022 Patient encounter procedure [facility] Start: 08-09-2022 End: 08-09-2022 Patient encounter procedure [facility] Start: 05-17-2022 End: 05-17-2022 Patient encounter procedure [facility] Start: 02-17-2022 End: 02-17-2022 Subsequent hospital visit by physician Suri Castillo DO Work Phone: [facility] Comment on above: Arrived Start: 02-15-2022 End: 02-15-2022 Patient encounter procedure [facility] Start: 01-30-2021 End: 01-30-2021 Subsequent hospital visit by physician Suri Castillo Work Phone: [facility] Comment on above: Arrived Start: 08-28-2020 End: 08-28-2020 Subsequent hospital visit by physician Suri Castillo Work Phone: [facility] Nuc Med Comment on above: Arrived Start: 08-07-2020 End: 08-07-2020 Subsequent hospital visit by physician Suri Castillo Work Phone: [facility] Comment on above: Arrived Start: 09-18-2019 End: 09-18-2019 Subsequent hospital visit by physician Suri Castillo Work Phone: [facility] Comment on above: Arrived Procedures [...] ant neoplasm of breast Breast cancer screen [place], [place] Start: 07-29-2021 Influenza vaccination Flu vaccine (# 1) [facility] Start: 07-29-2020 Influenza vaccination Flu vaccine (# 1) [place] Start: 07-29-2019 Influenza vaccination Flu vaccine (# 1) [place] Start: 07-08-2017 Breast cancer screen Breast cancer s creen [place], [place] Start: 2007 Colon cancer screen colonoscopy Colon cancer screen colonoscopy [place], [place] Start: 2007 Screening for malign ant neoplasm of colon Colon cancer screen colonoscopy [place] Start: 2007 Shingles Vaccine (1 of 2) Pulliam gles Vaccine (1 of 2) [facility] Start: 2002 Screening for malign ant neoplasm of colon [facility] Start: 1997 Diabetes screen Diabetes screen [place], [place] Start: 1997 Lipid panel Lipid screen [facility] Start: 1997 Lipid screen Lipid screen [place], [place] Start: 1987 Screening for malign ant neoplasm of cervix [facility] Start: 1978 Cervical cancer screen Cervical canc er screen [place], [place] Start: 1978 Screening for malign ant neoplasm of cervix [facility] Start: 1976 DTaP/Tdap/Td vaccine (1 - Tdap) DTaP/Tdap/Td vaccine (1 - Tdap) [facility] Start: 1973 COVID-19 Vaccine (1 of 2) COVI D-19 Vaccine (1 of 2) [facility] Work Phone: Start: 1972 HIV screen HIV screen [place], [place] Start: 1972 HIV screening HIV screen [facility] Start: 1969 Depression Screen Depression Screen [facility] Start: 1962 COVID-19 Vaccine (1) COVID-19 Vaccin e (1) [facility] Start: 1957 Hepatitis C screen Hepatitis C scree n [place], [place] Start: 1957 Hepatitis C screening Hepatitis C sc reen [facility] End: 09-18-2019 Screening digital breast tomosynthesis bi [facility] Digital Screen Bilateral Imaging Routine Once for 1 Occurrences starting 09/18/2019 until 09/18/2019 [place] Comment on above: Once for 1 Occurrenc es starting 09/18/2019 until 09/18/2019 Screening digital br east tomosynthesis bi [facility] Digital Screen Bilateral Imaging Routine 09/18/2019 11:41 AM EDT [place] Payers Date Payer Category Payer Medicare [id number] 2024 Self-pay [id number] 2024 Unknown [id number] 2016 Unknown [id number] Medicare [id number] Private Health Insurance [id number] Unknown [id number] 2.16.8 [id number] Unknown [id number] 2.16.8 [id number] Unknown [id number] 2.16.8 [id number] Unknown [id number] 2.16.8 [id number] Unknown [id number] 2.16.8 [id number] Unknown [id number] 2.16.8 [id number] Unknown [id number] 2.16.8 [id number] Unknown [id number] 2.16.8 [id number] Unknown [id number] 2.16.8 [id number] Unknown [id number] 2.16.8 40.1.359813.3.579.2.462 Unknown [id number] 2.16.8 40.1.906118.3.579.2.462 Unknown [id number] 2.16.8 [id number] Unknown [id number] 2.16.8 [id number] Unknown [id number] 2.16.8 [id number] Unknown [id number] 2.16.8 40.1.187107.3.579.2.462 Unknown [id number] 2.16.8 [id number] Social History Date Type Detail Facility Tobacco smoking status NHIS Unknown if ever smoked [place], [place] Start: 1955 Sex Assigned At Not on file [place] Start: 11-09-2021 End: 11-09-2021 Tobacco smoking status NHIS Tobacco smoking consumption unknown [facility] Start: 10-15-2020 None [facility] Start: 1955 Sex Assigned At Female [facility] Start: 11-09-2021 Tobacco smoking status NHIS Never smoked tobacco (finding) [facility] Start: 02-05-2025 End: 03-02-2025 Sex Female (finding) [facility] Sex Female [facility] Radiology Diagnostic study note 07-23-2025 Note Date & Type Note Facility 07-23-2025 Radiology Diagnostic study note [facility] Imaging Services [address] [place], [place] [address] Chest PA and Lateral MR#: [id number] Acct: [id number] Name: AUGUSTUS TARIQ Rep #: [id number] : 1955 F 69 From: Mann Vaughn MD PCP: Dr. Gaetano Tilley MD Status: RE G CLI Study:Chest PA and Lateral Date of Exam: 07/23/25 Exam# [id number] Ordering Dr: Gaetano Tilley MD PROCEDURE: CHEST [...] acute osseous change is noted. Reading Location: [place] [address] CC: Dr. Gaetano Tilley MD ~ Court Recorder: Signed [facility] Radiology Diagnostic study note 06-03-2025 Note Date & Type Note Facility 06-03-2025 Radiology Diagnostic study note [facility] Imaging Services [address] [place], [place] [address] L/S Spine Min 4 Views MR#: [id number] Acct: [id number] Name: AUGUSTUS TARIQ Rep #: [id number] : 1955 F 69 From: Liban Paul DO PCP: Dr. Gaetano Tilley MD Status: RE G CLI Study:L/S Spine Min 4 Views Date of Exam: 06/03/25 Exam# [id number] Ordering Dr: Mercedes Crow PROCEDURE: L/S SPINE [...] of the L5 vertebral body. Reading Location: [id number] CC: Mercedes Crow; Dr. Gaetano Tilley MD ~ Court Recorder: Signed [facility] Evaluation note Note Date & Type Note Facility Evaluation note No assessment information availa 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 Advance Directives and Living Will Power of Senior Product Development Scientist Advance Directive Response Recorded Date/ Time Living Will No November 09 021 2:05am Power of Senior Product Development Scientist No November 09, 2021 2:05am Advance Directive Response Recorded Date/ Time Living Will No November 09 021 1:05am Power of Senior Product Development Scientist No November 09, 2021 1:05am Summary Purpose [...] 8: 49am Abnormal electrocardiogram [ECG] [EKG] A [facility] 2024 7:02am Abnormal electrocardiogram [ECG] [EKG] S [facility] 2024 2:28pm Chief Complaint Admit Date S/O- PAIN- COPY PCP May 24, 2025 11:2 3am LUMBAR SPINE PAIN/ DDD June 03, 2025 8: 49am Abnormal electrocardiogram [ECG] [EKG] A [facility] 2024 7:02am Abnormal electrocardiogram [ECG] [EKG] [facility] 20[facility] 2:28pm S/O- PAIN- COPY PCP August 13, 2025 12:33pm Additional Source Comments Care Teams (unrecognized sec tion and content) Skin Care Consultant Relationship Specialty Start Date End Date Suri Castillo, DO [address] [place] [address] PCP - General 09/14/19 Team Status: Active [...] June 03, 2025 End: June 03, 2025 SADIQ. Mercedes Crow Attending Provider Active Star t: June 03, 2025 End: June 03, 2025 MARKING MACHINE OPERATOR. Mercedes Crow Referring Provider Active Star t: [...] June 03, 2025 End: June 03, 2025 MARKING MACHINE OPERATOR. Mercedes Crow Attending physician Active Sta rt: June 03, 2025 End: June 03, 2025 MARKING MACHINE OPERATORJoseph Crow Referring Provider Active Star t: June [...] August 13, 2025 Dr. Sara Matute MD Referring Provider Active Start: August 13, 2025 End: August 13, 2025 INFORMATION SOURCE (unrecogn ized section and content) DATE CREATED AUTHOR 02/18/2022 [facility] DATE CREATED AUTHOR AUTHOR'S ORGANIZ ATION 10/04/2025 [facility] Goals (unrecognized section and content) Goals [...] BE BASED ON THE PRIMARY CLINICAL RECORDS. curated.by [facility]. provides no warranty or guarantee of the accuracy or completeness of information in this document.
[2025-10-21 17:06] VITALS: BMI 28.0
[2025-10-21 17:44] VITALS: BP 104/71; PULSE 67; RESP 16; O2SAT 97
[2025-10-21 20:12] VITALS: BP 139/70; PULSE 77; RESP 16; TEMP 36.7; O2SAT 96
[2025-10-21] MEDS: 0.9% Saline Lock 10 ML Syringe IV (20:19)
--- NOTE | 2025-10-28 13:53 | CL.D_ITS ---
Patient Name: AUGUSTUS TARIQ Study Date: 10/21/2025 Performing: Elias Reich MD Ht: 67 inches 170 cm : 1955 Wt: 179.2 lbs 81.19 kg Age: 70 Gender: female BSA: 1.93 PROCEDURE(S) PERFORMED DC01-(19924)LHC/COR/LV CLINICAL PROFILE AND INDICATIONS Indications: Suspected CAD Heart Failure: None Stress/Imaging Date: 07/29/25Stress Test with SPECT MPI: Negative CAD Presentations: Unstable angina. CONCLUSIONS High-grade distal left main stenosis and ostial right coronary artery with preserved ejection fraction. RECOMMENDATIONS Will refer for coronary bypass surgery. DESCRIPTION OF PROCEDURE The patient arrived to the procedure lab. The risks and benefits of the procedure as well as a full description of our services here and current unavailability of surgical backup were fully explained to the patient and/or their significant other prior to the catheterization. The Timeout was completed, verifying the correct patient and procedure. The patient's procedural site was prepped and draped in the usual fashion. Local anesthetic was given subcutaneously to right radial region with Lidocaine 2%. Local anesthetic was given subcutaneously to right groin region with Lidocaine 2%. Using a modified Seldinger technique, arterial access was obtained via the right radial artery, a 6Fr sheath was inserted., arterial access was obtained via the right femoral artery, a 5Fr sheath was inserted. Left Coronary Artery selective angiography was performed in multiple views using a 5 Fr. JL4 catheter. Right Coronary Artery selective angiography was then performed in multiple views using a 5 Fr. 3DRC ([place]) catheter. Left Ventriculography was performed in BERNAL projection using a 5 Fr. Pigtail catheter.The arterial sheath was pulled and a Mynx closure device was deployed for hemostasis. The arterial sheath was pulled and a TR Band was applied for hemostasis w/9ml air CORONARY ANGIOGRAPHY DOMINANCE: Right Dominant LEFT HEART ASSESSMENT Left Ventricular Ejection Fraction: by LV Gram 55 % Normal LV wall motion Normal Left Ventricular systolic function LEFT MAIN: Distal left main hazy 80% stenosis. LEFT ANTERIOR DESCENDING ARTERY: Proximal moderate 80% stenosis with small vessel and then distal left to right collaterals. CIRCUMFLEX ARTERY: Mid circumflex stenosis with long 70% stenosis and mild distal disease RIGHT CORONARY ARTERY: Ostial calcified high-grade stenosis in mid and mid to distal 70% stenosis. [id number] collaterals noted COMPLICATIONS No Complications PROCEDURE MEDICATIONS Versed 1 mg IV Fentanyl 50 mcg IV Oxygen: 2 L/min via nasal cannula Heparin given IA 10/21/2025 12:26:18 Verapamil 2.5mg, Ntg 100mcgs, 3000 units of Heparin given IA 10/21/2025 12:26:18 SUMMARY OF HEMODYNAMIC DATA Time AIR REST ECG 10:12:48 Art 121/55 (74) 12:32:02 Art 130/66 (91) 12:37:14 AO 129/66 (90) SA 12:44:15 LV 126/5, 20 12:53:19 LVp 123/6, 20 12:53:22 LV 126/6, 20 12:53:35 LV 119/9, 26 12:54:03 LV 131/15, 32 12:54:09 LVp 128/9, 23 12:54:17 AOp 125/63 (89) 12:54:22 AIR REST 16:49:20 Signed By Elias Reich MD On 10/28/2025 13:52:50 Elias Reich MD
== END 2025-10-21 21:45 | disposition short-term general hospital (02) ==
LOC: CLSP 09:50 → PCU 18:04
PROVIDERS: PCP Family Medicine; Referring Provider Internal Medicine Cardiovascular Disease; Visit Provider Internal Medicine Cardiovascular Disease
DX: I25.110 Atherosclerotic heart disease of native coronary artery with unstable angina pectoris (principal); R07.89 Other chest pain; E78.2 Mixed hyperlipidemia; I10 Essential (primary) hypertension; Z79.899 Other long term (current) drug therapy; K21.9 Gastro-esophageal reflux disease without esophagitis
CPT/HCPCS: 93458; 99152; 99153; C1760; C1894; Q9967; A4216; C1769; J8610

== ENCOUNTER → 2025-11-11 | Outpatient (CLI) | payer MEDICARE, OTHER, SELFPAY ==
[2025-11-11 12:27] LABS: Hematocrit 35.8 % (37-47); Hemoglobin 10.9 g/dL (12.0-15.0); Immature Granulocytes Count 0.020 X10^3/uL (0.0-0.0); Mean Corp Hgb Conc 30.4 g/dL (32-36); Mean Corpuscular Volume 100.8 fL (81-99); Mean Platelet Vol. 10.2 fl (6.2-12.0); NRBC Flagged by Analyzer 0 % (0-5); Platelet Count 404 K/mm3 (150-450); RBC Distribution Width CV 15.9 % (11.6-14.6); RBC Distribution Width SD 59.7 fl (35.1-43.9); Red Blood Count 3.55 M/mm3 (4.2-5.4); White Blood Count 5.2 K/mm3 (4.4-11.0)
[2025-11-11 12:35] LABS: AST(SGOT) 19 U/L (<=31); Alanine Aminotransfer ALT/SGPT 8 U/L (<=34); Albumin, Serum 4.2 g/dL (3.4-4.8); Alkaline Phosphatase 116 U/L (35-104); Anion Gap 11 (5-15); BUN 8 mg/dL (4-19); BUN/Creat Ratio 12.8 RATIO (10-20); Calcium,Total 9.9 mg/dL (7.6-11.0); Carbon Dioxide 24.7 mmol/L (21.0-32.0); Chloride 106 mmol/L (98-108); Globulin 2.5 g/dL (2.2-4.2); Glucose 102 mg/dL (70-99); Potassium 4.0 mmol/L (3.3-5.1)
== END | disposition home or self-care (01) ==
LOC: MTLAB 09:08
PROVIDERS: PCP Family Medicine; Visit Provider Internal Medicine Rheumatology
DX: M06.4 Inflammatory polyarthropathy (principal); Z79.899 Other long term (current) drug therapy
CPT/HCPCS: 36415; 80053; 85025

== ENCOUNTER → 2025-11-12 | Outpatient (CLI) | payer MEDICARE, OTHER, SELFPAY ==
[2025-11-12 10:49] LABS: Ferritin 125 ng/mL (22-378); Iron 43 ug/dL (50-170); Iron Binding Capacity,Total 296 ug/dL (250-450); Iron Binding Capacity,Unsat 253 ug/dL (228-428); Vitamin B12 729 pg/mL (180-914)
== END | disposition home or self-care (01) ==
LOC: MTLAB 08:34
PROVIDERS: PCP Family Medicine; Referring Provider Family Medicine; Visit Provider Family Medicine
DX: D64.9 Anemia, unspecified (principal)
CPT/HCPCS: 36415; 82607; 82728; 83540; 83550